=== PATIENT | male | born 1985 | race Caucasian/White ===

== ENCOUNTER 2017-12-13 09:02 | Outpatient (RCR) | payer OTHER, SELFPAY ==
--- NOTE | 2017-12-13 13:41 | HP.PTEVAL_ITS ---
Patient's Visit Information JUDY DIOP is a 32 year old M referred to Physical Therapy by Arminda Mayen MD with a diagnosis of L RTC tendonitis. Date of Evaluation: 12/13/17 Physical Therapist: Lopez Dupont - Visit Plan Frequency: 2x /Week Duration: 4 Weeks Plan: Start with postural education, RTC strengthening phase III. Add in inferior glides with flexion and abduction. May use modalities if needed for pain control. - Subjective Subjective: Pt is here today for his initial evaluation with diagnosis of L RTC tendonitis. Pt. reports symptoms have been going on for a couple of months, and has been getting worse. Pt. has trialed light lifting which has made his symptoms worse. Increases pain: lifting, raising his arm over head, sleeping. Decreases pain: ibuprophen (limits intake), not using it, ice. Pt. reports having occassional N/T down to hand, but reports has not had this feeling in ~1 month. Pt. reports no difficulty at work, but his chief complaint in pain with sleeping. 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 Pt. reports decreased exercises, in general not due to injury, but lifting any upper body increases pain. Pt. is hopeful to reduce symptoms in order to get back to all recreation activities and sleep without pain. - Pain L shoulder Pain Intensity (Out of 10): 1 Pain Intensity Range: 0, 5 Comment: dull pain at most R shoulder Pain Intensity (Out of 10): 5 Pain Intensity Range: 0 Comment: no sharp or shooting - Objective POSTURE: Pt. has forward shoulder positioning bilaterally. Pt. has rounded shoulder, increased thoracic kyphosis and slumped posture. PALPATION: Pt. reports increased pain with palpaion to bilateral UT, bilateral levator scapulea (L worse than R). Pt. has increased pain with palpation to L bicipital groove, and throughout sub acromial space. NEUROLOGICAl: Pt. has normal sensation throughout bilateral UEs to light and sharp touch. Pt. has 2+ biceps and triceps DTR bilaterally. Pt. does not present with any limb tension. ROM: Pt. has full ROM of bilateral UEs including functional ER/IR, but has a painful arm with abduction and flexion, aswell as pain at end range of functional IR. CERVICAL- pt. has full cervical ROM without reproduction of L/R shoulder symptoms. MMT: RUE- shoulder- flexion 5/5, abd 5/5, ext 5/5, ER 5/5, IR 5/5. LUE- flexion 4+/5 (mild increase NW), abd 4+/5 increase NW, ER 4+/5 mild increase NW, IR 5-/5 increase NW, ext 5/5. Pt. 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 Pt. is R hand dominant. - Special Tests C/S Radiculapathy - Left Upper limb tension test: Negative C/S Radiculapathy - Right Upper limb tension test: Negative C/S Radiculapathy - Left Spurlings: Negative C/S Radiculapathy - Right Spurlings: Negative C/S Radiculapathy - Left Cervical distraction: Negative C/S Radiculapathy - Right Cervical distraction: Negative C/S Radiculapathy - Left Relief test: Negative C/S Radiculapathy - Right Relief test: Negative C/S Radiculapathy - Valsalva: Negative L Shoulder External Rotation Lag Test - RC Tear: Negative L Shoulder Lift Off Test - Subscapular Tear: Positive L Shoulder Drop Sign - IS Test: Negative L Shoulder Empty Can - SS: Positive L Shoulder Belly Press - SupScap: Positive L Shoulder Neer - Impingement: Positive L Shoulder Reddy Reymundo - Impingement: Positive L Shoulder Biceps Load Test - Labrum: Positive L Shoulder Speeds Test - Labrum/Biceps: Positive - Goals Goal 1:: Pt. to be I with HEP. Goal Time Frame: 4-6 Weeks Goal 2:: Pt. to have full L shoulder ROM without increase in symptoms. Goal Time Frame: 4-6 Weeks Goal 3:: Pt. to have incerased L shoulder strength by 1/2 grade of all effected musculature. Goal Time Frame: 4-6 Weeks Goal 4:: Pt. to sleep throughout the night without increase in symptoms. Goal Time Frame: 4-6 Weeks Goal 5:: Pt. to resume gym exercises without increase in pain. Goal Time Frame: 4-6 Weeks Goal 6:: Pt. to demonstrate proper posture throughout therapy session, indicating improved postural awareness. Goal Time Frame: 4-6 Weeks - Rehabilitation Potential Physical Therapy Diagnosis: Pt. has signs and symptoms consistent with L shoulder tendonitis with possible impingment occuring with over head activities. He has marked symptoms with impingment testing and with activation or subscapular musculature. Pt. has no signs of a large tear. He did have some positive signs of biceps involvement, but no tears noted. Pt. would benefit from PT to increase toelrance to all active over head activities and decrease pain with sleeping. Rehabilitation Potential: Excellent - Anticipated Interventions Patient/Client Instruction: Educate patient on: Condition, Plan of Care, Risk Factors, Benefits of Fitness Program For the Purpose of:: To assume or resume ADL's, To reduce risk of recurrence, To improve safety, To improve health and function, To foster healthy habits, To improve decision making, To facilitate caregiver knowledge, To improve self management, To prevent re-injury, To improve ability to perform tasks related to life management, To improve tolerance to ADL's Therapeutic Exercise to Include: Strength training, Postural training, Flexibilty training, Passive ROM, Active ROM, Scapular Strength/Stabilization For the Purpose of:: To decrease pain, To increase ROM, To improve nutrient delivery to tissue, To increase oxygenation perfusion, To improve muscle performance and motor function, To improve ability to perform ADL's, To increase tolerance to activity/condition/position, To decrease level of supervision to perform tasks, To improve health of tissue, To decrease soft tissue restriction, To increase flexibility/ROM IF ES: Yes Cryotherapy (ice pack, ice massage): Yes Ultrasound (thermal/non thermal): Yes For the Purpose of:: To decrease pain, To increase ROM, To improve nutrient delivery to tissue, To increase oxygenation perfusion, To improve muscle performance and motor function Thank you for the opportunity to evaluate your patient. For Medicare and Medicare HMO plans, please review the plan of care and approve it. It will need to be FAXED BACK to us at [phone] for Medicare purposes. Please let me know if there are questions or concerns regarding this plan of care. Physician Signature: Date:
--- NOTE | 2018-06-29 16:49 | HP.PT.NRP ---
HP - Discharge Summary (1) - Patient Information JUDY DIOP was seen in my office for initial evaluation on 12/13/17. The following Plan of Care was established for this patient: Initial Frequency: 2x /Week Initial Duration: 4 Weeks - Anticipated Interventions Patient/Client Instruction: Educate patient on: Condition, Plan of Care, Risk Factors, Benefits of Fitness Program For the Purpose of:: To assume or resume ADL's, To reduce risk of recurrence, To improve safety, To improve health and function, To foster healthy habits, To improve decision making, To facilitate caregiver knowledge, To improve self management, To prevent re-injury, To improve ability to perform tasks related to life management, To improve tolerance to ADL's Therapeutic Exercise to Include: Strength training, Postural training, Flexibilty training, Passive ROM, Active ROM, Scapular Strength/Stabilization For the Purpose of:: To decrease pain, To increase ROM, To improve nutrient delivery to tissue, To increase oxygenation perfusion, To improve muscle performance and motor function, To improve ability to perform ADL's, To increase tolerance to activity/condition/position, To decrease level of supervision to perform tasks, To improve health of tissue, To decrease soft tissue restriction, To increase flexibility/ROM IF ES: Yes Cryotherapy (ice pack, ice massage): Yes Ultrasound (thermal/non thermal): Yes For the Purpose of:: To decrease pain, To increase ROM, To improve nutrient delivery to tissue, To increase oxygenation perfusion, To improve muscle performance and motor function This patient was last seen in our office 12/13/17. Pertinent comments regarding their Physical therapy will appear below: Pt. was seen for his initial evaluation for R RTC tendonitis. He did not return for any subsequent visits. He has not been seen in ~7 months and will be DC from PT at this point in time. At this point I will be discontinuing this patient from physical therapy. I would be happy to see this patient again in the future if found appropriate by the physician. Thank you! Lopez Dupont
== END 2017-12-13 19:00 | disposition home or self-care (01) ==
LOC: PT 09:02
PROVIDERS: Family Provider Internal Medicine; PCP Internal Medicine; Visit Provider Internal Medicine
DX: M75.90 Shoulder lesion, unspecified, unspecified shoulder (principal); M25.519 Pain in unspecified shoulder
CPT/HCPCS: 97110; 97161

== ENCOUNTER → 2019-08-28 | Outpatient (CLI) | payer OTHER, SELFPAY ==
[2019-08-28 11:04] VITALS: BMI 33.3
== END | disposition home or self-care (01) ==
LOC: LABSPEC 14:49
PROVIDERS: Family Provider Internal Medicine; PCP Internal Medicine; Referring Provider Physician Assistant Surgical; Visit Provider Physician Assistant Surgical
DX: J06.0 Acute laryngopharyngitis (principal)
CPT/HCPCS: 87070

== ENCOUNTER 2021-02-13 02:30 | Emergency (ER) | payer OTHER, SELFPAY ==
[2019-09-30 08:20] VITALS: BMI 33.3
--- NOTE | 2021-02-13 02:32 | ED.RN ---
CALLED FOR EKG PER RN REQUEST, NO OLD EKGS IN MUSE
[2021-02-13 02:33] VITALS: BP 173/110; PULSE 115; RESP 18; TEMP 36.6; O2SAT 99; BMI 39.4
--- NOTE | 2021-02-13 02:37 | EKG12_ITS ---
Test Reason : CP Blood Pressure : / mmHG Vent. Rate : 099 BPM Atrial Rate : 099 BPM P-R Int : 160 ms QRS Dur : 086 ms QT Int : 346 ms P-R-T Axes : 057 052 061 degrees QTc Int : 444 ms Normal sinus rhythm with sinus arrhythmia Nonspecific T wave abnormality Abnormal ECG Confirmed by CONY MONTESINOS, MARY ([id number]), makeup editor ABRAHAM URRUTIA ([id number]) on 02/13/2021 12:51:20 PM Referred By: SANIA Confirmed By:MARY DONNELLY MD
--- NOTE | 2021-02-13 02:37 | RAD_ITS ---
STUDY: X-RAY CHEST REASON FOR EXAM: Male, 35 years old. Chest pain TECHNIQUE: Single AP portable view x2 of the chest. COMPARISON: None. FINDINGS: The lungs are clear and expanded. There is no demonstrated pleural abnormality. Normal size heart. Normal mediastinum and shavonne. Normal visualized pulmonary arteries. Normal visualized aortic arch and descending thoracic aorta. Normal visualized thoracic spine. Normal visualized ribs, clavicles, and shoulders. There is no demonstrated abnormality of the visualized soft tissue structures of the upper abdomen. RAD/Chest 1 View (Portable) IMPRESSION: Normal x-ray examination of the chest. Electronically Signed: Symone Rashid MD at 3:12 EDT Tel , Service support ,
--- NOTE | 2021-02-13 02:37 | ED.VISSUMM ---
- ER Visit Summary Date of Service: 02/13/21 Chief Complaint: Chest pain History of Present Illness: The patient is a 35 M who presents with chest pain. It woke him up from sleep about 30 minutes ago. He describes a pretty strong ache in the lower portion of his sternal area. It does not radiate. He denies shortness of breath, cough or fever. Nothing seems to make the pain better or worse. He has no history of this in the past. He states he likely has undiagnosed hypertension but is on no medications for it. He denies any other cardiovascular risk factors. He has no DVT or PE risk factors or history. He takes allergy medicine but no other medications. He is a non-smoker. Physical Examination: Vital signs reviewed. HEENT exam unremarkable. Heart is regular rate and rhythm without murmurs. Lungs are clear to auscultation. Abdomen is soft and nontender. Extremities reveal no edema. Peripheral pulses are equal. Skin exam normal. Neurologic exam normal. Test Results: EKG is normal sinus rhythm with rate of 99. There are no ST changes. Labs are normal except a glucose of 117. Chest x-ray normal. Second troponin is also normal Emergency Department Course and Treatment: Patient was given aspirin. He continued to have pain so he was given morphine. The patient had 2 troponins which were normal. His heart score is 1. He is low risk I feel he can follow-up as an outpatient. He will continue NSAIDs at home. Treatment Plan: [] Disposition: Discharge Impression: Chest pain This note was generated with [employer] dictation software. It may contain incorrect words, spelling, and punctuation that were not noted in review of the chart prior to signing ED Disposition - Plan for ED Patient: Disposition: Home or Assisted Living Instructions: ED Chest Pain, Uncertain Cause Referrals: Arminda Mayen MD [Primary Care Provider] -
[2021-02-13] MEDS: Aspirin 81 MG TAB.CHEW 324 MG PO (02:45)
[2021-02-13 02:52] LABS: Absolute Neutrophil Count 4.1 X10^3/uL (2.0-7.7); Basophil# 0.06 X10^3/uL; Basophil% 0.8 % (0-1); Eosinophil# 0.17 X10^3/uL; Eosinophils% 2.3 % (0-5); Hematocrit 43.1 % (40-54); Hemoglobin 15.2 g/dL (13.0-16.5); Lymphocyte % 34.8 % (19-41); Mean Corp Hgb Conc 35.3 g/dL (32-36); Mean Corpuscular Hgb 31.6 pg (27.0-32.0); Mean Corpuscular Volume 89.6 fL (80-94); Mean Platelet Vol. 10.2 fl (6.2-12.0); Monocyte# 0.58 X10^3/uL; Monocyte% 7.8 % (0-10); NRBC Flagged by Analyzer 0 % (0-5); Neutrophil # 4.05 X10^3/uL (2.7-7.7); Platelet Count 323 K/mm3 (150-450); RBC Distribution Width SD 39.2 fl (35.1-43.9); Red Blood Count 4.81 M/mm3 (4.6-6.2); White Blood Count 7.5 K/mm3 (4.4-11.0)
[2021-02-13 02:55] VITALS: BP 160/101; PULSE 90; RESP 17; O2SAT 97
[2021-02-13 03:10] LABS: Anion Gap 5 (5-15); BUN 15 mg/dL (7-18); BUN/Creat Ratio 13.8 RATIO (10-20); Calcium,Total 9.3 mg/dL (8.5-10.1); Chloride 106 mmol/L (98-107); Creatinine, Serum 1.09 mg/dL (0.70-1.30); EST Glomerular Filtration Rate 82 mL/min (>60); Est Glom Filt Rate - Afr Amer 99 mL/min (>60); Estimated Creatinine Clearance 116.13 ml/min; Glucose 117 mg/dL (74-106); Potassium 3.8 mmol/L (3.5-5.1); Sodium Level 139 mmol/L (136-145)
[2021-02-13 03:31] VITALS: BP 161/99; PULSE 78; RESP 22; O2SAT 96
[2021-02-13] MEDS: Morphine 4 MG/ML Syringe IV (03:41)
[2021-02-13 04:13] VITALS: BP 160/100; PULSE 84; RESP 15; O2SAT 96
[2021-02-13 04:21] VITALS: BP 145/94; PULSE 76; RESP 12; O2SAT 96
[2021-02-13 05:16] VITALS: BP 144/95; PULSE 71; RESP 16; O2SAT 96
== END 2021-02-13 05:17 | disposition home or self-care (01) ==
PROVIDERS: Emergency Provider Emergency Medicine; PCP Internal Medicine
DX: R07.9 Chest pain, unspecified (principal)
CPT/HCPCS: 36415; 71045; 80048; 84484; 85025; 93005; 96374; 99284; A4216

== ENCOUNTER → 2021-02-18 13:02 | Outpatient (CLI) | payer OTHER, SELFPAY ==
[2021-02-18 11:46] VITALS: BMI 38.2
[2021-02-18 16:23] LABS: Probe Check PASS; Specimen Processing Control PASS
== END ==
PROVIDERS: PCP Internal Medicine; Referring Provider Internal Medicine; Visit Provider Internal Medicine
DX: K80.20 Calculus of gallbladder without cholecystitis without obstruction (principal)
CPT/HCPCS: 87635; U0002

== ENCOUNTER 2021-03-20 10:19 | Outpatient (RCR) | payer OTHER, SELFPAY ==
[2021-02-18 11:46] VITALS: BMI 38.2
== END 2021-05-06 23:59 ==
LOC: IMMUN 10:19
PROVIDERS: PCP Internal Medicine; Referring Provider Family Medicine; Visit Provider Family Medicine
DX: Z23 Encounter for immunization (principal)
CPT/HCPCS: 0001A; 0002A; 91300

== ENCOUNTER → 2021-10-28 21:51 | Outpatient (CLI) | payer OTHER, SELFPAY | PROVIDERS: PCP Internal Medicine; Referring Provider Internal Medicine; Visit Provider Internal Medicine | DX: G47.10 Hypersomnia, unspecified (principal) | CPT/HCPCS: 95810 ==

== ENCOUNTER → 2021-11-27 20:00 | Outpatient (CLI) | payer OTHER, SELFPAY | PROVIDERS: PCP Internal Medicine; Visit Provider Internal Medicine | DX: G47.10 Hypersomnia, unspecified (principal) | CPT/HCPCS: 95811 ==

== ENCOUNTER 2022-01-12 09:00 | Outpatient (CLI) | payer OTHER, SELFPAY | END 2022-01-12 23:59 | disposition home or self-care (01) | LOC: SL 09:32 | PROVIDERS: PCP Internal Medicine; Visit Provider Internal Medicine | DX: Z46.89 Encounter for fitting and adjustment of other specified devices (principal) ==

== ENCOUNTER 2022-11-23 19:45 | Observation (INO) | payer OTHER, SELFPAY ==
[2022-11-23 19:45] VITALS: BP 158/97; PULSE 115; RESP 15; TEMP 37; O2SAT 96; BMI 38.3
[2022-11-23 21:01] VITALS: BP 139/77; PULSE 100; RESP 16; TEMP 36.6; O2SAT 98
[2022-11-23 21:45] VITALS: PULSE 99; RESP 16; O2SAT 99
--- NOTE | 2022-11-23 21:45 | ED.VIS.LOWEX ---
HPI History of Present Illness HPI Narrative: Right leg red, swollen and tender. Denies any fall injury or trauma. Chills without fever. Started last night. No prior history of cellulitis. Chief Complaint: Lower Extremity Injury Informant: patient Occured/Mechanism Mechanism/Context: No injury and No blunt trauma Onset/Context/Timing Onset: Today and Yesterday Context: Gradual Onset Timing: Continuous Current Severity: Mild Maximum Severity: Mild Associated Symptoms Associated Symptoms: Negative for Parasthesia, Weakness or Loss of Funtion Narrative Narrative: 37-year-old male past medical history of hypertension. States that last evening his right lower leg and now his right upper leg is red, swollen and tender. Chills without fever. He is never had this before. He has never had cellulitis. He is not diabetic. He has never had a DVT or PE. No recent travel, surgery or hospitalization. He has had surgery on his right foot but that was a year ago for removal of a melanoma. Prior similar symptoms: No Recent Illness/Hospitalization: No PFSH PFSH Medical History Asthma Congenital absence of left kidney Elevated random blood glucose level Fatty infiltration of liver Gallstones Hypersomnolence Hypertension (Unknown) Localized swelling of right foot Obesity (BMI 30-39.9) DORENE (obstructive sleep apnea) Rash Shortness of breath Shoulder pain Sleep apnea Home Medications loratadine 10 mg capsule 10 mg PO DAILY 02/13/21 [History Last Taken Unknown] amlodipine 10 mg tablet 10 mg PO DAILY #90 tabs 11/05/21 [Rx Last Taken Unknown] Allergy/AdvReac Type Severity Reaction Status Date / Time shellfish derived Allergy Severe Unknown Verified 11/23/22 19:52 Family History Mother Asthma Cancer basal cell Surgical History History of cholecystectomy History of hernia repair History of wisdom tooth extraction Social History (Updated 11/23/22 @ 22:[address] Suzi Castaneda MD) household members: spouse Smoking Status: Never smoker alcohol intake: never substance use type: does not use what type of physical activity do you participate in: bicycling frequency: 1-2 times per week ROS ROS ED ROS Narrative Chills. Right leg red and swollen. Review of Systems ROS Unobtainable: Denies due to encephalopathy Constitutional Constitutional ED: Reports chills; Denies fever(s) Eyes Eyes: Denies blurry vision ENT ENT ED: Denies ear pain Cardiovascular Cardiovascular: Denies chest pain Respiratory/Chest Respiratory/Chest: Denies cough or dyspnea Gastrointestinal Gastrointestinal: Denies abdominal pain Genitourinary Genitourinary ED: Denies dysuria or hematuria Musculoskeletal Musculoskeletal: Denies arthralgias Integumentary Denies abscess or Abrasions Neurologic Neurologic: Denies headache(s) Psychiatric Psychiatric: Denies anxiety Endocrine Endocrinology: Denies polydipsia Hematologic/Lymphatic Hematologic/Lymphatic: Denies easy bleeding Allergic/Immunologic Allergic/Immunologic ED: Denies mouth swelling or tongue swelling EXAM Physical Exam Narrative Exam Narrative: There is [age]-year-old male no acute distress. Vital signs stable afebrile. H EENT exam unremarkable. Neck nontender. Lungs clear to auscultation. Heart regular rhythm rate about 100 no murmur. Abdomen soft nontender normal bowel sounds no peritoneal signs. Moving all 4 extremities. His right leg from the ankle all the way up to his right inner thigh is red, tender and warm to touch consistent with cellulitis. He has mild tender inguinal lymphadenopathy. There is no abscess. No subcu air or crepitance. Right foot is neurovascularly intact with full range of motion. DP pulse. Touch sensation. No joint swelling or significant joint pain. Exam is consistent with right lower extremity cellulitis. Neurologically is awake and alert. Const Vital Signs: 11/23/22 19:45 11/23/22 21:01 11/23/22 21:45 Temperature 98.6 F 97.8 F Temperature Source Temporal Temporal Pulse Rate 115 H 100 99 Respiratory Rate 15 16 16 Blood Pressure 158/97 H 139/77 H Blood Pressure Mean 117 97 Pulse Ox 96 98 99 Oxygen Delivery Method Room Air Room Air Room Air Positive well nourished, well developed and obese; Negative for cachectic or contractures General Appearance ED: well developed and NAD; Negative for cachectic or contractures Nutritional Appearance: obese; Negative for cachectic HEENT Reports moist mucous membranes normocephalic and atraumatic; Negative for trauma or tenderness Eyes PERRL General Eye ED: Negative for other Neck full ROM and supple Thyroid: Negative for tender Lymph Lymphatic: Negative for other Chest Wall inspection of chest normal and palpation of chest normal Chest: Negative for other Resp normal respiratory effort, no retractions and clear to auscultation bilaterally Effort and Inspection: Negative for pain with movement Auscultation: Negative for rales, rhonchi or wheezes Cardio regular rhythm, S1 normal heart sound, S2 normal heart sound and no murmurs; Negative for regular rate Rate: tachycardic GI non-tender, non-distended and no masses Inspection: Negative for abdominal distention Auscultation: normoactive bowel sounds Palpation: soft; Negative for tender or guarding Back/Spine no CVA tenderness General Back: Negative for CVA tenderness Cervical Spine: Negative for cervical spine tenderness Thoracic Spine / Upper Back: Negative for thoracic spinal tenderness Lumbar Spine / Lower Back: Negative for lumbar spinal tenderness Extremity normal to inspection and full ROM Extremity Narrative: Except right leg red, swollen and tender consistent with cellulitis from the right ankle all the way up to the right groin. Right foot is neurovascular intact with normal dorsi and plantar flexion. Normal DP pulse and sensation. General Extremety ED: Yes edema General Extremity: edema Neuro oriented x3 and moves all extremities Sensorium / Orientation: alert, oriented to person, oriented to place and oriented to time; Negative for orientation impaired, confused or lethargic Motor Exam: strength 5/5 throughout Psych mental status grossly normal Speech: No other Mood & Affect: Negative for anxious Skin no wounds Skin Narrative: Cellulitis right lower leg from the ankle to the groin. Lesions: no lesions Rashes: No no rashes Trauma: Negative for abrasion or laceration MDM MDM MDM Narrative Medical decision making narrative: 37-year-old male with right lower extremity cellulitis. This has been going on about 24 hours and is gone from his ankle to his groin. He will be started on IV Unasyn. Blood cultures and labs. I feel he needs to be admitted for IV antibiotics. Repeat exam unchanged at 10:23 PM. IV antibiotics have been started. I have already spoken with the hospitalist she will be down to evaluate the patient for admission. Patient is aware of the plan and comfortable with that. Lab Data Attestation: I reviewed the patient's lab results. Lab results narrative: CBC shows a white count 9.3. H&H 11.1 and 34.2. Platelets 246. Electrolytes are pending. This is a new anemia from his prior labs discussed with the hospitalist who will further evaluate that. Discussed with patient has no history of anemia. He denies any GI bleed symptoms. Chemistries unremarkable gap of 8 normal BUN and creatinine. Glucose of 108. Labs: Laboratory Results - last 24 hr 11/23/22 11/23/22 22:03 22:03 WBC 9.3 RBC 3.60 L Hgb 11.1 L Hct 34.2 L MCV 95.0 H MCH 30.8 MCHC 32.5 RDW Std Deviation 42.8 RDW Coeff of Geoff 12.4 Plt Count 246 MPV 10.3 Immature Gran % (Auto) 0.400 Neut % (Auto) 77.5 H Lymph % (Auto) 14.2 L Stewart % (Auto) 7.6 Eos % (Auto) 0.1 Baso % (Auto) 0.2 Absolute Neuts (auto) 7.2 Absolute Lymphs (auto) 1.31 Nucleated RBC % 0 Sodium 136 Potassium 3.9 Chloride 107 Carbon Dioxide 21.0 Anion Gap 8 BUN 10 Creatinine 1.13 Estim Creat Clear Calc 109.89 Est GFR (MDRD) Af Amer 94 Est GFR (MDRD) Non-Af 78 BUN/Creatinine Ratio 8.8 L Glucose 108 H Calcium 9.2 Discharge Plan Dx/Rx/DC Orders Clinical Impression: Cellulitis of leg, right, Anemia Disposition Disposition: Acute Care Hospital [facility] Discharge Date/Time: 11/23/22 22:44
--- NOTE | 2022-11-23 22:14 | PCM.HP.STD ---
HPI - General General Date of Admission: 11/23/22 Date of Service: 11/23/22 Chief Complaint: RLE redness, pain, edema. 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 He does report that approximately 2 weeks prior to this current onset he did have increased swelling in his foot which is above his baseline. He notes since he had surgery initially in November of this year on the right foot following melanoma removal and follow-up grafting surgery in January he has had chronic foot swelling and reportedly was told that this would take nearly a year to resolve but this swelling which initiated 2 weeks prior to current presentation was above this baseline. Work-up in the ED included T97.8, heart rate 100, BP 139/77, respiratory rate 16, 98% on room air, CBC with WC 9.3, hemoglobin 11.1, MCV 95, platelet 246 without marked shift. In the ED patient initiated on Unasyn therapy. Upon requested evaluation patient has BMP as well as blood culture x2 that are all pending. [facility] Medical History Asthma Congenital absence of left kidney Elevated random blood glucose level Fatty infiltration of liver Gallstones Hypersomnolence Hypertension (Unknown) Localized swelling of right foot Obesity (BMI 30-39.9) DORENE (obstructive sleep apnea) Rash Shortness of breath Shoulder pain Sleep apnea Home Medications loratadine 10 mg capsule 10 mg PO DAILY 02/13/21 [History Last Taken Unknown] amlodipine 10 mg tablet 10 mg PO DAILY #90 tabs 11/05/21 [Rx Last Taken Unknown] Allergy/AdvReac Type Severity Reaction Status Date / Time shellfish derived Allergy Severe Unknown Verified 11/23/22 19:52 Family History Mother Asthma Cancer basal cell other (No marked paternal family history including HD, DM, CA.) Surgical History History of cholecystectomy History of hernia repair History of wisdom tooth extraction Social History (Updated 11/23/22 @ 22:[address] Suzi Castaneda MD) household members: spouse Smoking Status: Never smoker alcohol intake: never substance use type: does not use what type of physical activity do you participate in: bicycling frequency: 1-2 times per week ROS ROS Narrative Admission Review of Systems: CONSTITUTIONAL: No weight loss, fever, + chills, weakness or fatigue. HEENT: Eyes: No visual loss, blurred vision, double vision or yellow sclerae. Ears, Nose, Throat: No hearing loss, sneezing, congestion, runny nose or sore throat. SKIN: + RLE redness, edema, pain. CARDIOVASCULAR: + Mild lightheadedness. No chest pain, chest pressure or chest discomfort, palpitations, edema, orthopnea, syncopal events. RESPIRATORY: No shortness of breath, cough or sputum, wheezing, hemoptysis. GASTROINTESTINAL: No anorexia, nausea, vomiting or diarrhea, abdominal pain, melena, BRBPR. GENITOURINARY: No dysuria, frequency, urgency or retention. NEUROLOGICAL: + Mild lightheadedness. No headache, dizziness, syncope, paralysis, ataxia, numbness or tingling in the extremities, focal weakness, change in bowel or bladder control, seizure. MUSCULOSKELETAL: + muscle, back pain, joint pain or stiffness. HEMATOLOGIC: + anemia, bleeding or bruising. LYMPHATICS: No enlarged nodes. No history of splenectomy. PSYCHIATRIC: No history of depression or anxiety. ENDOCRINOLOGIC: No reports of sweating, cold or heat intolerance. No polyuria or polydipsia. ALLERGIES: + history of asthma, rhinitis. Vital Signs Vital Signs Vital Signs: 11/23/22 19:45 11/23/22 21:01 Temperature 98.6 F 97.8 F Temperature Source Temporal Temporal Pulse Rate 115 H 100 Respiratory Rate 15 16 Blood Pressure 158/97 H 139/77 H Blood Pressure Mean 117 97 Pulse Ox 96 98 Oxygen Delivery Method Room Air Room Air Weight Weight: 315 lb Body Mass Index (BMI) 38.3 Physical Exam Narrative Physical Examination: General: Awake, alert, oriented x 3 and cooperative, seated upright in the ED bed, fatigued appearing otherwise no acute distress. Skin: Normal color, normal turgor, no icterus, no cyanosis except for noted well-healed skin grafting to the right plantar medial foot as well as erythema which is not circumferential but primarily up the medial leg from the ankle to the proximal thigh, warm to touch, tender to palpation, notable discomfort even with squeezing the calf, mild swelling especially to the foot including the toes. HEENT: AT/NC, EOMI, PERRLA, mildly dry MM, no carotid bruits or JVD noted. Lungs: CTA bilaterally, moderate effort, mild decrease BL bases, no rales, ronchi or wheezing. Heart: Mildly tachycardic with regular rhythm; no gallop, rub audible. Abdomen: Soft, obese, NTTP, ND, normal BS, no HSM. Extremities: No cyanosis, no clubbing, see skin. Neurological: Patient awake, alert, oriented as noted, cognitive function intact; pupils equally reactive to light and accommodation, cranial nerves II-XII grossly normal, moving all 4 extremities, no focal deficits, strength mildly to moderately Decreased secondary to acute presentation complaints. Psychiatric: Affect appears fatigued, no acute evidence of depressive or anxiety feelings. 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 #1. Extensive Right Lower Extremity Cellulitis extending from ankle to upper proximal thigh: Will admit to [facility], maintain on IV Unasyn which was initiated in the ED, plan repeat CBC in AM, continue affected extremity elevation above heart when seated and in bed, monitor erythema outline with VS checks, will obtain duplex ultrasound to be cautious, PRN pain/antiemetic regimen. #2. New appearing macrocytic anemia: Admission CBC with hemoglobin 11.1, MCV 95, just above the range for normocytic, will obtain guaiac, iron panel, ferritin, vitamin B12 and folic acid to be cautious. Patient is color blind to read and denies knowledge of any bright red blood in his stools but is able to see black and denies any black appearing stools. #3. Melanocytic nevus: Patient following w/ Dr. Jackson, nevus on the sole of R foot since , biopsy done on 10/17/2021 which showed Melanoma with PET/CT on 11/18/2021 was negative. 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 #4. Chronic asthma with allergic rhinitis: Not on any chronic inhalers, PRN albuterol, continue patient home loratadine. #5. Obesity: Weight loss and lifestyle changes encouraged. #6. Hypertension: Continue home regimen amlodipine, PRN hydralazine. #7. DORENE: CPAP nightly. #8. DVT prophylaxis: SCDs, will maintain on therapeutic Lovenox while awaiting ultrasound as noted, de-escalate once able if negative especially given new anemia. Charges/Coding Visit Charges OBSV E&M: 57579 Initial observation care L3
[2022-11-23 22:20] LABS: Absolute Lymphocyte Count 1.31 X10^3/uL (0.83-4.51); Absolute Neutrophil Count 7.2 X10^3/uL (2.0-7.7); Basophil# 0.02 X10^3/uL; Basophil% 0.2 % (0-1); Eosinophil# 0.01 X10^3/uL; Eosinophils% 0.1 % (0-5); Hematocrit 34.2 % (40-54); Hemoglobin 11.1 g/dL (13.0-16.5); Lymphocyte # 1.31 X10^3/ul (0.83-4.51); Lymphocyte % 14.2 % (19-41); Mean Corp Hgb Conc 32.5 g/dL (32-36); Mean Corpuscular Hgb 30.8 pg (27.0-32.0); Mean Platelet Vol. 10.3 fl (6.2-12.0); Monocyte% 7.6 % (0-10); NRBC Flagged by Analyzer 0 % (0-5); Neutrophil # 7.17 X10^3/uL (2.7-7.7); Neutrophil % 77.5 % (47-70); Platelet Count 246 K/mm3 (150-450); RBC Distribution Width CV 12.4 % (11.6-14.6); RBC Distribution Width SD 42.8 fl (35.1-43.9); White Blood Count 9.3 K/mm3 (4.4-11.0)
[2022-11-23 22:24] VITALS: BP 143/79; PULSE 100; RESP 17; TEMP 36.4; O2SAT 98
[2022-11-23 22:48] LABS: Anion Gap 8 (5-15); BUN 10 mg/dL (7-18); BUN/Creat Ratio 8.8 RATIO (10-20); Calcium,Total 9.2 mg/dL (8.5-10.1); Chloride 107 mmol/L (98-107); Creatinine, Serum 1.13 mg/dL (0.70-1.30); EST Glomerular Filtration Rate 78 mL/min (>60); Est Glom Filt Rate - Afr Amer 94 mL/min (>60); Estimated Creatinine Clearance 109.89 ml/min; Glucose 108 mg/dL (74-106); Potassium 3.9 mmol/L (3.5-5.1); Sodium Level 136 mmol/L (136-145)
[2022-11-23 22:54] VITALS: BMI 38.8
[2022-11-23 23:10] VITALS: BP 159/85; PULSE 102; RESP 17; TEMP 36.8; O2SAT 99
[2022-11-23] MEDS: 0.9% Normal Saline 1,000 ML 125 ML IV (23:16)
[2022-11-23] MEDS: Enoxaparin 150 MG/ML Syringe 140 MG SC (23:16)
[2022-11-24 05:20] VITALS: BP 151/90; PULSE 97; RESP 16; TEMP 37.3; O2SAT 95
--- NOTE | 2022-11-24 05:55 | VDLE_ITS ---
Reason For Study: LEG PAIN RIGHT LEFT GSV is normal. CFV is compressible, spontaneous, phasic, CFV is compressible, spontaneous, phasic, competent, and demonstrates normal competent and demonstrates normal augmentation. augmentation. FV is compressible, spontaneous, phasic, competent and demonstrates normal augmentation. POP V is compressible, spontaneous, phasic, competent and demonstrates normal augmentation. T/P Trunk is compressible. PTV is compressible. RT PerV is compressible. Enlarged lymph nodes noted in Rt Groin measuring approximately 1.14cm x 0.66cm and 0.72cm x 0.99cm. Procedure This is a venous duplex using B-mode, color flow and spectral Doppler. Exam performed portable in ICU/CCU. The exam was diagnostic. A preliminary report was called and/or faxed to ICU Nurse responsible for patient. VL/Venous Duplex US, Unilateral Interpretation Summary There is no evidence of right lower extremity deep vein thrombosis. Right great saphenous vein appears patent and compressible segmentally. Right groin 1.14 x 0.66 cm and 0.7 2 x 0.99 cm lymph nodes Normal flow left common femoral vein Ordering Physician: Suzi Castaneda Referring Physician: Arminda Mayen Performed By: Dashawn Haywood RVT
[2022-11-24 06:00] VITALS: BP 151/90; PULSE 97; RESP 16; TEMP 37.3; O2SAT 95
[2022-11-24] MEDS: 0.9% Saline Lock 10 ML Syringe IV (06:17)
[2022-11-24] MEDS: 0.9% Normal Saline 1,000 ML 125 ML IV (06:17)
[2022-11-24 06:18] LABS: Absolute Lymphocyte Count 1.41 X10^3/uL (0.83-4.51); Absolute Neutrophil Count 7.3 X10^3/uL (2.0-7.7); Basophil# 0.04 X10^3/uL; Basophil% 0.4 % (0-1); Eosinophil# 0.01 X10^3/uL; Eosinophils% 0.1 % (0-5); Hematocrit 41.9 % (40-54); Hemoglobin 13.8 g/dL (13.0-16.5); Lymphocyte # 1.41 X10^3/ul (0.83-4.51); Lymphocyte % 14.5 % (19-41); Mean Corp Hgb Conc 32.9 g/dL (32-36); Mean Corpuscular Hgb 30.5 pg (27.0-32.0); Mean Corpuscular Volume 92.5 fL (80-94); Mean Platelet Vol. 10.2 fl (6.2-12.0); Monocyte# 0.87 X10^3/uL; NRBC Flagged by Analyzer 0 % (0-5); Neutrophil # 7.34 X10^3/uL (2.7-7.7); Neutrophil % 75.7 % (47-70); Platelet Count 323 K/mm3 (150-450); RBC Distribution Width CV 12.6 % (11.6-14.6); RBC Distribution Width SD 42.7 fl (35.1-43.9); Red Blood Count 4.53 M/mm3 (4.6-6.2); White Blood Count 9.7 K/mm3 (4.4-11.0)
[2022-11-24 06:47] LABS: AST(SGOT) 15 U/L (15-37); Alanine Aminotransfer ALT/SGPT 43 U/L (16-61); Albumin, Serum 3.5 g/dL (3.2-5.0); Alkaline Phosphatase 66 U/L (45-117); Anion Gap 7 (5-15); BUN 9 mg/dL (7-18); Calcium,Total 8.4 mg/dL (8.5-10.1); Chloride 107 mmol/L (98-107); EST Glomerular Filtration Rate 90 mL/min (>60); Est Glom Filt Rate - Afr Amer 109 mL/min (>60); Estimated Creatinine Clearance 124.17 ml/min; Ferritin 222 ng/mL (26-388); Globulin 3.6 g/dL (2.2-4.2); Glucose 120 mg/dL (74-106); Iron 26 ug/dL (65-175); Iron Binding Capacity,Total 289 ug/dL (250-450); Potassium 3.6 mmol/L (3.5-5.1); Protein, Total 7.1 g/dL (6.4-8.2); Sodium Level 140 mmol/L (136-145)
[2022-11-24 08:00] VITALS: BP 151/90; PULSE 97; RESP 16; TEMP 37.3; O2SAT 98
[2022-11-24 08:07] VITALS: O2SAT 97
[2022-11-24 08:29] LABS: Vitamin B12 285 pg/mL (211-911)
[2022-11-24] MEDS: amLODIPine 10 MG Tablet PO (09:50)
[2022-11-24] MEDS: Enoxaparin 150 MG/ML Syringe 140 MG SC (09:50)
[2022-11-24] MEDS: Loratadine 10 MG Tablet PO (09:50)
[2022-11-24] MEDS: FLU VACC QS2022-23(6MOS UP)/PF 60 MCG/0.5 ML SYRINGE IM (09:54)
--- NOTE | 2022-11-24 11:37 | DCINST_ITS ---
Discharge Instructions Diet Discharge Diet: No restrictions Activity Discharge Activity: Return to Normal Activity Weight Bearing Status: Full weight bearing Follow Up Care Test Results: Test results from this visit will be discussed in further detail at your follow- up appointment, if applicable. Discharge Plan Admission Admit Date/Time: 11/23/22 22:15 Primary Reason for Your Visit: cellulitis right leg Attending Provider: aGtito Chase Primary Care Provider: Arminda Mayen Consulting Providers: Suzi Castaneda Instructions Additional Instructions / Restrictions: Contact your family physician if your right leg has increased redness or swelling You will need follow-up concerning your iron deficiency anemia Discharge Orders/Prescriptions Prescriptions: New doxycycline monohydrate 100 mg capsule 100 mg PO BID Qty: 15 0RF Rx Instructions: start on 11/24/22 in the evening ferrous sulfate 325 mg (65 mg iron) tablet 325 mg PO BID Qty: 60 0RF Continued amlodipine 10 mg tablet 10 mg PO DAILY Qty: 90 3RF loratadine 10 MG capsule 10 mg PO DAILY Referrals / Follow Up: Arminda Mayen MD [Primary Care Provider] - See Referral Note (next week) Disposition Disposition (needs filled in before D/C Order can be placed): Home, Self Care
[2022-11-24 12:00] VITALS: BP 146/74; PULSE 99; RESP 16; TEMP 36.6; O2SAT 98
--- NOTE | 2022-11-24 12:03 | DS.PCM_ITS ---
Providers Date of Admission: 11/23/22 Date of Discharge: 11/24/22 Primary Care Physician: Dr. Arminda Mayen MD Reason For Visit: RLE CELLULITIS Diagnosis Discharge Diagnosis (1) Cellulitis of leg, right: Status: Acute Code(s): L03.115 - Cellulitis of right lower limb Plan 1. Right leg cellulitis #2 iron deficiency anemia-etiology unclear #3 obstructive sleep apnea #4 essential hypertension Medications at Discharge Home Medications loratadine 10 mg capsule 10 mg PO DAILY 02/13/21 amlodipine 10 mg tablet 10 mg PO DAILY #90 tabs 11/05/21 doxycycline monohydrate 100 mg capsule 100 mg PO BID #15 caps 11/24/22 ferrous sulfate 325 mg (65 mg iron) tablet 325 mg PO BID #60 tabs 11/24/22 Hospital Course Operations None Procedures None Summary of Care Provided Minutes Spent on Discharge: 30 Hospital Course: This 37-year-old white male was seen in the emergency room at [facility] with complaints of right lower leg and right upper leg swelling, r edness, and tenderness. Patient also complained of some chills without actual fever. Examination in the emergency room revealed streaking up the right lower leg into the right inner thigh area, the area was warm to the touch and was mildly tender. Patient CBC was unremarkable except for hemoglobin of 11.1 patient was placed in the observation status in ICU 204 for cellulitis, he was placed on IV antibiotics, iron studies were performed and showed the patient to have iron deficiency anemia. Repeat hemoglobin was normal the next day. On 11/24/2022, patient was seen and examined: On examination he appeared in good health and spirits. Vital signs as documented. Skin warm and dry, there is a red rash extending from the patient's right lower leg on the inner aspect to the proximal right inner thigh area, this area was mildly warm and was not overtly tender at time of my examination. Neck without JVD, neck was supple, trachea midline, thyroid was normal. Lungs clear bilaterally, normal air movement was noted. Heart exam notable for regular rhythm, normal sounds and absence of murmurs, rubs or gallops. Abdomen unremarkable and without evidence of organomegaly, masses, or abdominal aortic enlargement. Bowel sounds are present, abdomen is not distended. Extremities nonedematous, no cyanosis was noted, no clubbing was noted. Neuro: Cranial nerves II through XII are grossly intact, no focal motor deficits were noted, sensation to light touch and pinprick intact, motor exam 5/5 throughout. Psych: Patient is alert and oriented x3, he does not appear anxious or depressed, he does not appear agitated. This examiner felt that the patient could be discharged home on oral antibiotics with follow-up with his PCP. He was also instructed to follow-up regarding his iron deficiency anemia, patient was placed on ferrous sulfate at the time of discharge from the hospital. I also talked with his who was in the room at the time of my examination concerning his medical conditions. Weight / BMI Weight Weight: 142.4 kg Body Mass Index (BMI) 38.8 ABG / Lab / Microbiology Data Result Diagrams: 11/24/22 06:10 11/24/22 06:10 Laboratory: Laboratory Results - last 24 hr 11/23/22 22:03: WBC 9.3, RBC 3.60 L, Hgb 11.1 L, Hct 34.2 L, MCV 95.0 H, MCH 30.8, MCHC 32.5, RDW Std Deviation 42.8, RDW Coeff of Geoff 12.4, Plt Count 246, MPV 10.3, Immature Gran % (Auto) 0.400, Neut % (Auto) 77.5 H, Lymph % (Auto) 14.2 L, Alexander % (Auto) 7.6, Eos % (Auto) 0.1, Baso % (Auto) 0.2, Absolute Neuts (auto) 7.2, Absolute Lymphs (auto) 1.31, Nucleated RBC % 0 11/23/22 22:03: Sodium 136, Potassium 3.9, Chloride 107, Carbon Dioxide 21.0, Anion Gap 8, BUN 10, Creatinine 1.13, Estim Creat Clear Calc 109.89, Est GFR (MDRD) Af Amer 94, Est GFR (MDRD) Non-Af 78, BUN/Creatinine Ratio 8.8 L, Glucose 108 H, Calcium 9.2 11/24/22 06:10: WBC 9.7, RBC 4.53 L, Hgb 13.8, Hct 41.9, MCV 92.5, MCH 30.5, MCHC 32.9, RDW Std Deviation 42.7, RDW Coeff of Geoff 12.6, Plt Count 323, MPV 10.2, Immature Gran % (Auto) 0.300, Neut % (Auto) 75.7 H, Lymph % (Auto) 14.5 L, Alexander % (Auto) 9.0, Eos % (Auto) 0.1, Baso % (Auto) 0.4, Absolute Neuts (auto) 7.3, Absolute Lymphs (auto) 1.41, Nucleated RBC % 0 11/24/22 06:10: Sodium 140, Potassium 3.6, Chloride 107, Carbon Dioxide 26.0, Anion Gap 7, BUN 9, Creatinine 1.00, Estim Creat Clear Calc 124.17, Est GFR (MDRD) Af Amer 109, Est GFR (MDRD) Non-Af 90, BUN/Creatinine Ratio 9.0 L, Glucose 120 H, Calcium 8.4 L, Iron 26 L, TIBC 289, Iron Saturation 9.0 L, Ferritin 222, Total Bilirubin 1.10 H, AST 15, ALT 43, Alkaline Phosphatase 66, Total Protein 7.1, Albumin 3.5, Globulin 3.6, Albumin/Globulin Ratio 1.0, Folate 17.70 11/24/22 06:10: Vitamin B12 285 Microbiology: Microbiology 11/24/22 09:45 Stool Stool Occult Blood (RAJ) - Final Radiography Diagnostic Testing: Radiology Impression Venous Doppler Study 11/24/22 05:55 Interpretation Summary There is no evidence of right lower extremity deep vein thrombosis. Right great saphenous vein appears patent and compressible segmentally. Right groin 1.14 x 0.66 cm and 0.72 x 0.99 cm lymph nodes Normal flow left common femoral vein Ordering Physician: Suzi Castaneda Referring Physician: Arminda Mayen Performed By: Dashawn Haywood RVT D/C Instructions Discharge Diet: No restrictions Weight Bearing Status: Full weight bearing Meaningful Use Info Meaningful Use Diagnoses (Choose all that apply): None applicable Discharge Plan Admission Admit Date/Time: 11/23/22 22:15 Primary Reason for Your Visit: cellulitis right leg Attending Provider: Gatito Chase Primary Care Provider: Arminda Mayen Consulting Providers: Suzi Castaneda Instructions Additional Instructions / Restrictions: Contact your family physician if your right leg has increased redness or swelling You will need follow-up concerning your iron deficiency anemia Discharge Orders/Prescriptions Prescriptions: New doxycycline monohydrate 100 mg capsule 100 mg PO BID Qty: 15 0RF Rx Instructions: start on 11/24/22 in the evening ferrous sulfate 325 mg (65 mg iron) tablet 325 mg PO BID Qty: 60 0RF Continued amlodipine 10 mg tablet 10 mg PO DAILY Qty: 90 3RF loratadine 10 MG capsule 10 mg PO DAILY Referrals / Follow Up: Arminda Mayen MD [Primary Care Provider] - See Referral Note (next week) Disposition Disposition (needs filled in before D/C Order can be placed): Home, Self Care Charges/Coding Visit Charges OBSV E&M: 71806 Observation care discharge
[2022-11-24 13:28] VITALS: BP 146/74; PULSE 97; RESP 16; TEMP 36.6; O2SAT 98
== END 2022-11-24 14:24 | disposition home or self-care (01) ==
LOC: ED 22:10 → ICU 22:32
PROVIDERS: Admitting Provider Family Medicine; Emergency Provider Emergency Medicine; PCP Internal Medicine; Visit Provider Internal Medicine
DX: L03.115 Cellulitis of right lower limb (principal); G47.33 Obstructive sleep apnea (adult) (pediatric); R60.9 Edema, unspecified; D50.9 Iron deficiency anemia, unspecified; J45.909 Unspecified asthma, uncomplicated; I10 Essential (primary) hypertension; Z79.899 Other long term (current) drug therapy; Z23 Encounter for immunization; E66.9 Obesity, unspecified; Z68.38 Body mass index [BMI] 38.0-38.9, adult; D22.71 Melanocytic nevi of right lower limb, including hip
CPT/HCPCS: 36415; 80048; 80053; 82274; 82607; 82728; 82746; 83540; 83550; 85025; 87040; 93971; 96361; 96365; 96366; 96367; 96372; 99218; 99284; J7030; J7050; 90686; A4216; G0378; J0295; J0696

== ENCOUNTER → 2023-04-12 | Outpatient (CLI) | payer OTHER, SELFPAY ==
[2023-04-12 12:31] LABS: Absolute Lymphocyte Count 1.65 X10^3/uL (0.83-4.51); Absolute Neutrophil Count 5.1 X10^3/uL (2.0-7.7); Basophil# 0.05 X10^3/uL; Basophil% 0.7 % (0-1); Eosinophil# 0.15 X10^3/uL; Hematocrit 42.6 % (40-54); Hemoglobin 14.6 g/dL (13.0-16.5); Lymphocyte # 1.65 X10^3/ul (0.83-4.51); Lymphocyte % 22.3 % (19-41); Mean Corp Hgb Conc 34.3 g/dL (32-36); Mean Corpuscular Hgb 31.1 pg (27.0-32.0); Mean Corpuscular Volume 90.6 fL (80-94); Mean Platelet Vol. 10.4 fl (6.2-12.0); Monocyte% 5.4 % (0-10); NRBC Flagged by Analyzer 0 % (0-5); Neutrophil # 5.12 X10^3/uL (2.7-7.7); Neutrophil % 69.3 % (47-70); Platelet Count 349 K/mm3 (150-450); RBC Distribution Width CV 12.5 % (11.6-14.6); White Blood Count 7.4 K/mm3 (4.4-11.0)
[2023-04-12 13:08] LABS: ALB/GLOB Ratio 1.3 RATIO (0.9-2.4); AST(SGOT) 29 U/L (15-37); Alanine Aminotransfer ALT/SGPT 61 U/L (16-61); Alkaline Phosphatase 71 U/L (45-117); Anion Gap 7 (5-15); BUN 10 mg/dL (7-18); BUN/Creat Ratio 9.3 RATIO (10-20); Calcium,Total 9.1 mg/dL (8.5-10.1); Chloride 108 mmol/L (98-107); Cholesterol 171 mg/dL (200); Creatinine, Serum 1.07 mg/dL (0.70-1.30); EST Glomerular Filtration Rate 82 mL/min (>60); Est Glom Filt Rate - Afr Amer 100 mL/min (>60); Ferritin 121 ng/mL (26-388); Globulin 3.1 g/dL (2.2-4.2); Glucose 101 mg/dL (74-106); High Density Lipoprotein 37 mg/dL; Iron 110 ug/dL (65-175); Iron Binding Capacity,Total 321 ug/dL (250-450); Protein, Total 7.1 g/dL (6.4-8.2); Sodium Level 141 mmol/L (136-145); Triglycerides 112 mg/dL; Very Low Density Lipoprotein 22 mg/dL (5-40)
== END | disposition home or self-care (01) ==
LOC: BIMLAB 09:27
PROVIDERS: PCP Internal Medicine; Referring Provider Internal Medicine; Visit Provider Internal Medicine
DX: I10 Essential (primary) hypertension (principal); D64.9 Anemia, unspecified
CPT/HCPCS: 36415; 80053; 80061; 82728; 83540; 83550; 85025

== ENCOUNTER 2023-05-29 22:12 | Inpatient (IN) | payer OTHER, SELFPAY ==
[2023-05-29 22:12] VITALS: PULSE 112
[2023-05-29 22:14] VITALS: BP 129/77; PULSE 122; RESP 24; TEMP 37.7; O2SAT 100; BMI 39.2
--- NOTE | 2023-05-29 23:09 | EDS_ITS ---
HPI History of Present Illness Chief Complaint: Cellulitis Informant: patient Onset/Context/Timing Onset: Today Context: Sudden Onset Timing: Continuous Quality: Aching, warm Location: Right leg Worsened by: Laying on his leg Relieved by: Nothing Narrative Narrative: Patient presents with cellulitis to his right leg that began today. Patient states he noted some pain in his groin and right lower leg earlier today. Patient states that he developed some chills and a fever after that. Patient states his fever was up to 102.9 at home. Patient states he was having some general myalgias, back pain, and neck pain. Patient was having some nausea and vomiting. Patient states he also felt somewhat short of breath. Patient states his pain is worse when he lays on his leg. Patient denies any paresthesias or weakness. [facility] Medical History (Updated 05/30/23 @ 02:[address] Antonio Ferguson DO) Asthma Congenital absence of left kidney Discoloration of skin Elevated random blood glucose level Fatty infiltration of liver Gallstones Hypersomnolence Hypertension (Unknown) TARAS (iron deficiency anemia) Localized swelling of right foot Melanoma Obesity (BMI 30-39.9) DORENE (obstructive sleep apnea) Rash Shortness of breath Shoulder pain Sleep apnea Venous insufficiency of both lower extremities Home Medications loratadine 10 mg capsule 10 mg PO DAILY 02/13/21 [History Last Taken Unknown] ferrous sulfate 325 mg (65 mg iron) tablet 325 mg PO BID #60 tabs 11/24/22 [Rx Last Taken Unknown] triamterene 37.5 mg-hydrochlorothiazide 25 mg tablet 1 tab PO QAM #30 tabs 03/08/23 [Rx Last Taken Unknown] Allergy/AdvReac Type Severity Reaction Status Date / Time shellfish derived Allergy Severe Unknown Verified 05/29/23 22:14 Family History Mother Asthma Cancer basal cell Surgical History (Updated 05/29/23 @ 23:[address] Antonio Ferguson DO) History of cholecystectomy History of hernia repair History of wisdom tooth extraction Hx of foot surgery Social History household members: spouse Smoking Status: Never smoker alcohol intake: never substance use type: does not use what type of physical activity do you participate in: bicycling frequency: 1-2 times per week ROS ROS ED Constitutional Constitutional ED: Reports chills and fever(s) Eyes Eyes: Denies blurry vision or change in vision ENT ENT ED: Denies rhinorrhea or sore throat Cardiovascular Cardiovascular: Denies chest pain or palpitations Respiratory/Chest Respiratory/Chest: Reports dyspnea; Denies cough Gastrointestinal Gastrointestinal: Reports nausea and vomiting Genitourinary Genitourinary ED: Denies dysuria or hematuria Musculoskeletal Musculoskeletal: Reports back pain, myalgias and neck pain Integumentary Reports rash; Denies abscess Neurologic Neurologic: Denies headache(s) or weakness Allergic/Immunologic Allergic/Immunologic ED: Denies mouth swelling or urticaria EXAM Physical Exam Const Vital Signs: 05/29/23 22:14 05/29/23 22:12 Temperature 100 F H Temperature Source Oral Pulse Rate 122 H 112 H Respiratory Rate 24 H Blood Pressure 129/77 H Blood Pressure Mean 94 Pulse Ox 100 Positive well nourished and well developed General Appearance ED: well developed and NAD HEENT Reports moist mucous membranes Neck supple and no JVD Resp normal respiratory effort and clear to auscultation bilaterally Cardio regular rate, regular rhythm and no murmurs GI normal to inspection, nondistended, normoactive bowel sounds and non-tender Palpation: soft Extremity Extremity Narrative: There is tenderness, erythema, and warmth over the medial aspect of the right lower leg up to the knee. There is no abscess. There are some insect bites noted over the lower leg. There is no discharge or drainage. There is full range of motion. General Extremety ED: Yes tenderness Neuro oriented x3, CN's II-XII intact bilaterally and no sensory deficits noted Sensorium / Orientation: alert Motor Exam: strength 5/5 throughout Psych mental status grossly normal Skin no rashes or lesions noted MDM MDM MDM Narrative Medical decision making narrative: Differential diagnosis includes cellulitis, and sepsis. CBC will be obtained to assess for leukocytosis and anemia. Basic metabolic profile will be obtained to assess for electrolyte abnormality and renal function. Blood cultures will be obtained to assess for sepsis. Lactate will be obtained to assess for sepsis. Lab Data Attestation: I reviewed the patient's lab results. Lab results narrative: CBC was reviewed. There is a leukocytosis of 19.7. Absolute neutrophil count was elevated 18.1. Basic metabolic profile was reviewed. Creatinine was slightly elevated at 1.37. Glucose was 122. The remainder was within normal limits. Lactic acid was reviewed and was slightly elevated at 2.2. Labs: Laboratory Results - last 24 hr 05/29/23 05/29/23 05/29/23 00:05 03:35 03:35 WBC 19.7 H Cancelled Corrected WBC Cancelled RBC 4.43 L Cancelled Hgb 13.9 Cancelled Hct 40.0 Cancelled MCV 90.3 Cancelled MCH 31.4 Cancelled MCHC 34.8 Cancelled RDW Std Deviation 40.3 Cancelled RDW Coeff of Geoff 12.2 Cancelled Plt Count 294 Cancelled MPV 10.0 Cancelled Immature Gran % (Auto) 0.600 Cancelled Neut % (Auto) 92.0 H Cancelled Lymph % (Auto) 2.5 L Cancelled [place] % (Auto) 4.6 Cancelled Eos % (Auto) 0.0 Cancelled Baso % (Auto) 0.3 Cancelled Absolute Neuts (auto) 18.1 H Cancelled Absolute Lymphs (auto) 0.50 L Cancelled Total Counted Cancelled Neutrophils % (Manual) Cancelled Band Neutrophils % Cancelled Lymphocytes % (Manual) Cancelled Monocytes % (Manual) Cancelled Eosinophils % (Manual) Cancelled Basophils % (Manual) Cancelled Metamyelocytes % Cancelled Myelocytes % Cancelled Promyelocytes % Cancelled Blast Cells % Cancelled Plasma Cell % (Manual) Cancelled Other Cells % Cancelled Nucleated RBC % 0 Cancelled Nucleated RBCs/100 WBC Cancelled Differential Comment Cancelled Diff Path Review Cancelled Hypersegmented Neuts Cancelled Atypical Lymphocytes Cancelled Reactive Lymphocytes Cancelled Smudge Cells Cancelled Toxic Granulation Cancelled Toxic Vacuolation Cancelled Dohle Bodies Cancelled Binh Rods Cancelled Platelet Estimate Cancelled Plt Morphology Comment Cancelled RBC Morphology Cancelled Cancelled Polychromasia Cancelled Hypochromasia Cancelled Poikilocytosis Cancelled Basophilic Stippling Cancelled Anisocytosis Cancelled Microcytosis Cancelled Macrocytosis Cancelled Spherocytes Cancelled Sickle Cells Cancelled Target Cells Cancelled Tear Drop Cells Cancelled Ovalocytes Cancelled Stomatocytes Cancelled [place] Bodies Cancelled [place] Cells Cancelled Bite Cells Cancelled Crenated Cell Cancelled Acanthocytes (Spur) Cancelled Rouleaux Cancelled Schistocytes Cancelled Sodium 135 L Potassium 4.1 Chloride 106 Carbon Dioxide 21.0 Anion Gap 8 BUN 15 Creatinine 1.37 H Estim Creat Clear Calc 90.64 Est GFR (MDRD) Af Amer 75 Est GFR (MDRD) Non-Af 62 BUN/Creatinine Ratio 10.9 Glucose 122 H Lactic Acid 2.2 H* Calcium 9.3 Treatment and Re-Evaluation :: Blood cultures were obtained. Patient was given a dose of Ancef. Because of the leukocytosis and lactic acidosis, vancomycin was added. Patient was advised of his results. Case was discussed with the hospitalist. She will admit the patient to PCU. Patient and spouse understand and are agreeable with the plan. All questions were answered. Discharge Plan Dx/Rx/DC Orders Clinical Impression: Cellulitis of leg, right, Leukocytosis Disposition Disposition: Acute Care Hospital [facility]
[2023-05-29] MEDS: Acetaminophen 500 MG Tablet 1000 MG PO (23:29)
[2023-05-30] VITALS (8 sets, daily range): BP systolic 118–174; BP diastolic 52–84; PULSE 94–114; RESP 16–18; TEMP 37.2–38.6; O2SAT 94–99; BMI 39.3
[2023-05-30] MEDS: Cefazolin 1 GM/50 ML BAG IV (00:05)
[2023-05-30 00:06] LABS: Anion Gap 8 (5-15); BUN 15 mg/dL (7-18); BUN/Creat Ratio 10.9 RATIO (10-20); Calcium,Total 9.3 mg/dL (8.5-10.1); Chloride 106 mmol/L (98-107); Creatinine, Serum 1.37 mg/dL (0.70-1.30); EST Glomerular Filtration Rate 62 mL/min (>60); Est Glom Filt Rate - Afr Amer 75 mL/min (>60); Estimated Creatinine Clearance 90.64 ml/min; Glucose 122 mg/dL (74-106); Potassium 4.1 mmol/L (3.5-5.1); Sodium Level 135 mmol/L (136-145)
[2023-05-30 00:15] LABS: Absolute Neutrophil Count 18.1 X10^3/uL (2.0-7.7); Basophil# 0.05 X10^3/uL; Basophil% 0.3 % (0-1); Hemoglobin 13.9 g/dL (13.0-16.5); Lymphocyte % 2.5 % (19-41); Mean Corp Hgb Conc 34.8 g/dL (32-36); Mean Corpuscular Hgb 31.4 pg (27.0-32.0); Mean Corpuscular Volume 90.3 fL (80-94); Monocyte# 0.91 X10^3/uL; Monocyte% 4.6 % (0-10); NRBC Flagged by Analyzer 0 % (0-5); Neutrophil # 18.09 X10^3/uL (2.7-7.7); POSITIVE DIFFERENTIAL YES; Platelet Count 294 K/mm3 (150-450); RBC Distribution Width CV 12.2 % (11.6-14.6); RBC Distribution Width SD 40.3 fl (35.1-43.9); Red Blood Count 4.43 M/mm3 (4.6-6.2); White Blood Count 19.7 K/mm3 (4.4-11.0)
[2023-05-30 00:17] LABS: Lactic Acid 2.2 mmol/L (0.4-1.9)
[2023-05-30 00:17] LABS: Differential Indicated SCAN CRITERIA MET
--- NOTE | 2023-05-30 02:55 | HP.PCM.HOS_ITS ---
HPI - General General Date of Admission: 05/30/23 Date of Service: 05/30/23 Chief Complaint: RLE pain, redness, fever. HPI Narrative The patient is a 37 y/o M w/ PMHx: 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 Jackson, Obesity, Asthma w/ allergic rhinitis, DORENE, HTN who presents to the [facility] ED on 05/30/2023 with history of onset of discomfort to his right groin as well as right lower extremity starting earlier in the day the day prior to presentation with onset of chills as well as a fever following and concurrently erythema which began to progress up his right lower extremity with reported fever at home 102.9 with also some generalized malaise as well as nausea and emesis with concurrent right lower extremity pain prompting eventual ED evaluation. He notes the pain is worse in the right lower extremity if he is laying on it. He notes it appears less red and involves less of the leg than his prior cellulitic presentation but this time he notes it came on more severely with fever, chills and N/V. Work-up in the ED included T100, heart rate 122, BP 129/77, respiratory rate 24, 100% on room air, 05/29/2023 CBC obtained earlier in the day with WBC 19.7, hemoglobin 13.9, platelet 294 with significant left shift and BMP with sodium 135, BUN/c reatinine 15/1.37, glucose 122, lactic acid mildly elevated 2.2. In the ED patient administered Tylenol 1000 mg p.o. x1 as well as Ancef and IV vancomycin. [facility] Medical History Asthma Congenital absence of left kidney Discoloration of skin Elevated random blood glucose level Fatty infiltration of liver Gallstones Hypersomnolence Hypertension (Unknown) TARAS (iron deficiency anemia) Localized swelling of right foot Melanoma Obesity (BMI 30-39.9) DORENE (obstructive sleep apnea) Rash Shortness of breath Shoulder pain Sleep apnea Venous insufficiency of both lower extremities Home Medications loratadine 10 mg capsule 10 mg PO DAILY 02/13/21 [History Last Taken Unknown] ferrous sulfate 325 mg (65 mg iron) tablet 325 mg PO BID #60 tabs 11/24/22 [Rx Last Taken Unknown] triamterene 37.5 mg-hydrochlorothiazide 25 mg tablet 1 tab PO QA #30 tabs 03/08/23 [Rx Last Taken Unknown] mecobalamin (vitamin B12) 1,000 mcg chewable tablet (B12 Active) 1,000 mcg PO DAILY 05/30/23 [History Last Taken Unknown] Allergy/AdvReac Type Severity Reaction Status Date / Time shellfish derived Allergy Severe Unknown Verified 05/29/23 22:14 Family History Mother Asthma Cancer basal cell Family History other other (No marked paternal family history including HD, DM, CA.) Surgical History History of cholecystectomy History of hernia repair History of wisdom tooth extraction Hx of foot surgery Social History household members: spouse Smoking Status: Never smoker alcohol intake: never substance use type: does not use what type of physical activity do you participate in: bicycling frequency: 1-2 times per week ROS ROS Narrative Admission Review of Systems: CONSTITUTIONAL: No weight loss, + fever, chills, weakness or fatigue. HEENT: Eyes: No visual loss, blurred vision, double vision or yellow sclerae. Ears, Nose, Throat: No hearing loss, sneezing, congestion, runny nose or sore throat. SKIN: + RLE redness, pain. CARDIOVASCULAR: + Mild lightheadedness. No chest pain, chest pressure or chest discomfort, palpitations, edema, orthopnea, syncopal events. RESPIRATORY: No shortness of breath, cough or sputum, wheezing, hemoptysis. GASTROINTESTINAL: + anorexia, nausea, vomiting, No diarrhea, abdominal pain, melena, BRBPR. GENITOURINARY: No dysuria, frequency, urgency or retention. NEUROLOGICAL: + Mild lightheadedness. No headache, dizziness, syncope, paralysis, ataxia, numbness or tingling in the extremities, focal weakness, change in bowel or bladder control, seizure. MUSCULOSKELETAL: + muscle, back pain, joint pain or stiffness. HEMATOLOGIC: + anemia, bleeding or bruising. LYMPHATICS: No enlarged nodes. No history of splenectomy. PSYCHIATRIC: No history of depression or anxiety. ENDOCRINOLOGIC: No reports of sweating, cold or heat intolerance. No polyuria or polydipsia. ALLERGIES: + history of asthma, rhinitis. Vital Signs Vital Signs Vital Signs: 05/29/23 22:14 05/29/23 22:12 Temperature 100 F H Temperature Source Oral Pulse Rate 122 H 112 H Respiratory Rate 24 H Blood Pressure 129/77 H Blood Pressure Mean 94 Pulse Ox 100 Weight Weight: 322 lb 12.8 oz Body Mass Index (BMI) 39.2 Physical Exam Narrative Physical Examination: General: Awake, alert, oriented x 3 and cooperative, seated upright in the ED bed, fatigued appearing otherwise no acute distress. Skin: Normal color, normal turgor, no icterus, no cyanosis except for noted well-healed skin grafting to the right plantar medial foot as well as erythema from the R ankle to the knee region, warm to touch, mild edema compared to LLE (acute on chronic). HEENT: AT/NC, EOMI, PERRLA, mildly dry MM, no carotid bruits or JVD noted. Lungs: CTA bilaterally, moderate effort, mild decrease BL bases, mildly increased RR, no rales, ronchi or wheezing. Heart: Notable tachycardia with regular rhythm; no gallop, rub audible. Abdomen: Soft, obese, NTTP, ND, mildly hyperactive BS, no HSM. Extremities: No cyanosis, no clubbing, see skin. Neurological: Patient awake, alert, oriented as noted, cognitive function intact; pupils equally reactive to light and accommodation, cranial nerves shawna sly normal, moving all 4 extremities, no focal deficits, strength mildly to moderately decreased secondary to acute presentation complaints. Psychiatric: Affect appears fatigued, no acute evidence of depressive or anxiety feelings. Results Lab / Micro Data 05/29/23 00:05 05/29/23 03:35 Labs: Laboratory Results - last 24 hr 05/29/23 00:05: WBC 19.7 H, RBC 4.43 L, Hgb 13.9, Hct 40.0, MCV 90.3, MCH 31.4, MCHC 34.8, RDW Std Deviation 40.3, RDW Coeff of Geoff 12.2, Plt Count 294, MPV 10.0, Immature Gran % (Auto) 0.600, Neut % (Auto) 92.0 H, Lymph % (Auto) 2.5 L, [place] % (Auto) 4.6, Eos % (Auto) 0.0, Baso % (Auto) 0.3, Absolute Neuts (auto) 18.1 H, Absolute Lymphs (auto) 0.50 L, Nucleated RBC % 0 05/29/23 03:35: WBC Cancelled, Corrected WBC Cancelled, RBC Cancelled, Hgb Cancelled, Hct Cancelled, MCV Cancelled, MCH Cancelled, MCHC Cancelled, RDW Std Deviation Cancelled, RDW Coeff of Geoff Cancelled, Plt Count Cancelled, MPV Cancelled, Immature Gran % (Auto) Cancelled, Neut % (Auto) Cancelled, Lymph % (Auto) Cancelled, [place] % (Auto) Cancelled, Eos % (Auto) Cancelled, Baso % (Auto) Cancelled, Absolute Neuts (auto) Cancelled, Absolute Lymphs (auto) Cancelled, To luis Counted Cancelled, Neutrophils % (Manual) Cancelled, Band Neutrophils % Cancelled, Lymphocytes % (Manual) Cancelled, Monocytes % (Manual) Cancelled, Eosinophils % (Manual) Cancelled, Basophils % (Manual) Cancelled, Metamyelocytes % Cancelled, Myelocytes % Cancelled, Promyelocytes % Cancelled, Blast Cells % Cancelled, Plasma Cell % (Manual) Cancelled, Other Cells % Cancelled, Nucleated RBC % Cancelled, Nucleated RBCs/100 WBC Cancelled, Differential Comment Cancelled, Diff Path Review Cancelled, Hypersegmented Neuts Cancelled, Atypical Lymphocytes Cancelled, Reactive Lymphocytes Cancelled, Smudge Cells Cancelled, Toxic Granulation Cancelled, Toxic Vacuolation Cancelled, Dohle Bodies Cancel led, Binh Rods Cancelled, Platelet Estimate Cancelled, Plt Morphology Comment Cancelled, RBC Morphology Cancelled 05/29/23 03:35: RBC Morphology Cancelled, Polychromasia Cancelled, Hypochromasia Cancelled, Poikilocytosis Cancelled, Basophilic Stippling Cancelled, Anisocytosis Cancelled, Microcytosis Cancelled, Macrocytosis Cancelled, Spherocytes Cancelled, Sickle Cells Cancelled, Target Cells Cancelled, Tear Drop Cells Cancelled, Ovalocytes Cancelled, Stomatocytes Cancelled, [place] Bodies Cancelled, [place] Cells Cancelled, Bite Cells Cancelled, Crenated Cell Cancelled, Acanthocytes (Spur) Cancelled, Rouleaux Cancelled, Schistocytes Cancelled, Sodium 135 L, Potassium 4.1, Chloride 106, Carbon Dioxide 21.0, Anion Gap 8, BUN 15, Creatinine 1.37 H, Estim Creat Clear Calc 90.64, Est GFR (MDRD) Af Amer 75, Est GFR (MDRD) Non-Af 62, BUN/Creatinine Ratio 10.9, Glucose 122 H, Lactic Acid 2.2 H*, Calcium 9.3 Assessment & Plan Assessment/Plan (1) Cellulitis: PLAN: Plan The patient is a 37 y/o M w/ PMHx: 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 Jackson, Obesity, Asthma w/ allergic rhinitis, DORENE, HTN who presents to the [facility] ED on 05/30/2023 with history of onset of discomfort to his right groin as well as right lower extremity starting earlier in the day the day prior to presentation with onset of chills as well as a fever following and concurrently erythema which began to progress up his right lower extremity with reported fever at home 102.9 with also some generalized malaise as well as nausea and emesis with concurrent right lower extremity pain prompting eventual ED evaluation. #1. Acute Sepsis secondary to Acute Right Lower Extremity Cellulitis (tachycardia, tachypnea, febrile with source and lactic acidosis as well as renal insufficiency): Will admit to [facility], and severity of presentation with fever, tachycardia, tachypnea and significant leukocytosis will place on IV vancomycin and IV Zosyn per cellulitis order set with de-escalation as able, plan repeat CBC in AM, continue affected extremity elevation above heart when seated and in bed, monitor erythema outline with VS checks, will obtain duplex ultrasound to be cautious, PRN pain/antiemetic regimen. #2. Mild acute renal insufficiency: Likely secondary to acute presentation #1: Admission BUN/creatinine 15/1.37, baseline creatinine primarily 1.0-1.1 max, will continue to trend CMP. #3. Melanocytic nevus: Patient following w/ Dr. Jackson, nevus on the sole of R foot since , biopsy done on 10/17/2021 which showed Melanoma with PET/CT on 11/18/2021 was negative. 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 Now patient is only following w/ Dermatology, awaiting visit, recommended Dr. Estuardo Acosta. #4. Chronic asthma with allergic rhinitis: Not on any chronic inhalers, PRN albuterol, continue patient home loratadine. #5. Obesity: Weight loss and lifestyle changes encouraged. #6. Hypertension: Judiciously hydrating given presentation, mild renal insufficiency as noted, will temporally hold patient diuretic regimen and in the interim placed on PRN hydralazine. #7. Chronic anemia/Fe deficiency: Admission Hgb 13.9, stable, improved, continue Fe supplementation and CBC trending. #8. DORENE: CPAP nightly. #9. DVT prophylaxis: Lovenox. #10. CODE STATUS: Full code. Admission Evaluation Time spent evaluating chart, patient history, patient evaluation, care planning and discussion with specialists: 60 minutes. Charges/Coding Visit Charges Inpatient E&M: 43819 Init Hosp L2
--- NOTE | 2023-05-30 03:00 | VDLE_ITS ---
Reason For Study: pain RIGHT GSV is normal. CFV is compressible, spontaneous, phasic, competent and demonstrates normal augmentation. FV is compressible, spontaneous, phasic, competent and demonstrates normal augmentation. POP V is compressible, spontaneous, phasic, competent and demonstrates normal augmentation. T/P Trunk is compressible. PTV is compressible. RT PerV is compressible. Heterogeneous areas in the right groin measuring .77 x 1.1 and .86 x .93 in short. Vascular flow is noted. Procedure This is a venous duplex using B-mode, color flow and spectral Doppler. Exam performed portable in patient room. The exam was abbreviated due to the COVID 19 protocol. The exam was diagnostic. A preliminary report was called and/or faxed to Dr. Chase. VL/Venous Duplex US, Unilateral Interpretation Summary There is no evidence of right lower extremity deep vein thrombosis. Right great saphenous vein appears patent and compressible segmentally. Right groin 0.77 x 1.1 and 0.86 x 0.93 centimeter structures with vascular flow consistent with lymph nodes. Clinical correlation would be appropriate. Abbreviated COVID-19 protocol utilized Ordering Physician: Suzi Castaneda Performed By: Joseph Rangel RVT
[2023-05-30 03:45] LABS: Reflex Lactate? Y
[2023-05-30 04:57] LABS: Lactic Acid 1.7 mmol/L (0.4-1.9)
--- NOTE | 2023-05-30 05:27 | PCM.RX.CS ---
Consult Antibiotic Management Pharmacy has been consulted to manage selected antiobiotic: Vancomycin Type of Intervention Type of Consult: New start Suspected Infection Suspected Infection: Sepsis and Skin/Soft tissue Labs Labs: Sodium 135 mmol/L (136-145) L 05/29/23 03:35 Potassium 4.1 mmol/L (3.5-5.1) 05/29/23 03:35 Chloride 106 mmol/L (98-107) 05/29/23 03:35 Carbon Dioxide 21.0 mmol/L (21.0-32.0) 05/29/23 03:35 Anion Gap 8 (5-15) 05/29/23 03:35 BUN 15 mg/dL (7-18) 05/29/23 03:35 Creatinine 1.37 mg/dL (0.70-1.30) H 05/29/23 03:35 Est GFR (MDRD) Af Amer 75 mL/min (>60) 05/29/23 03:35 Est GFR (MDRD) Non-Af 62 mL/min (>60) 05/29/23 03:35 BUN/Creatinine Ratio 10.9 RATIO (10-20) 05/29/23 03:35 Glucose 122 mg/dL (74-106) H 05/29/23 03:35 Goal Trough Goal Trough: 15-20 mcg/mL Pharmacy Plan for Drug Dosing Pharmacy Plan for Drug Dosing: IV VANCOMYCIN Consulting Physician: Dr. Castaneda Indication: SSTI Goal Trough: 15-20 SrCr: 1.37 CrCl: 115 Ml/min (using AdjBW) Comments: Loading dose 2000mg IV x1 ordered and administered in ED 05/30/23 @0224 Vancomycin Dose: 1500mg IV Q8hr to start 05/30/23 @1000 Pending Level: 05/31/23 @0130, prior to 4th total dose per protocol Pharmacy Service will continue to monitor and adjust dosing as required.
[2023-05-30] MEDS: 0.9% Normal Saline 1,000 ML 999 ML IV ×2 (05:40→06:55)
[2023-05-30 05:42] LABS: Absolute Lymphocyte Count 0.77 X10^3/uL (0.83-4.51); Absolute Neutrophil Count 15.9 X10^3/uL (2.0-7.7); Basophil# 0.03 X10^3/uL; Basophil% 0.2 % (0-1); Hematocrit 39.2 % (40-54); Hemoglobin 13.9 g/dL (13.0-16.5); Lymphocyte # 0.77 X10^3/ul (0.83-4.51); Lymphocyte % 4.4 % (19-41); Mean Corp Hgb Conc 35.5 g/dL (32-36); Mean Corpuscular Hgb 32.3 pg (27.0-32.0); Mean Corpuscular Volume 91.2 fL (80-94); Monocyte# 0.63 X10^3/uL; Monocyte% 3.6 % (0-10); NRBC Flagged by Analyzer 0 % (0-5); Neutrophil # 15.89 X10^3/uL (2.7-7.7); Neutrophil % 91.1 % (47-70); Platelet Count 269 K/mm3 (150-450); RBC Distribution Width CV 12.6 % (11.6-14.6); RBC Distribution Width SD 41.7 fl (35.1-43.9); White Blood Count 17.5 K/mm3 (4.4-11.0)
[2023-05-30] MEDS: 0.9% Normal Saline 1,000 ML 125 ML IV (05:53)
[2023-05-30] MEDS: Pregabalin 50 MG Capsule PO ×2 (05:58→21:17)
[2023-05-30 06:10] LABS: ALB/GLOB Ratio 1.1 RATIO (0.9-2.4); AST(SGOT) 20 U/L (15-37); Alanine Aminotransfer ALT/SGPT 52 U/L (16-61); Albumin, Serum 3.5 g/dL (3.2-5.0); Alkaline Phosphatase 60 U/L (45-117); Anion Gap 6 (5-15); BUN 15 mg/dL (7-18); BUN/Creat Ratio 10.9 RATIO (10-20); Calcium,Total 8.4 mg/dL (8.5-10.1); Chloride 108 mmol/L (98-107); Creatinine, Serum 1.38 mg/dL (0.70-1.30); EST Glomerular Filtration Rate 61 mL/min (>60); Est Glom Filt Rate - Afr Amer 74 mL/min (>60); Estimated Creatinine Clearance 89.98 ml/min; Globulin 3.2 g/dL (2.2-4.2); Glucose 146 mg/dL (74-106); Potassium 3.9 mmol/L (3.5-5.1); Protein, Total 6.7 g/dL (6.4-8.2); Sodium Level 139 mmol/L (136-145)
[2023-05-30 08:36] LABS: Procalcitonin 1.28 ng/mL (0.00-0.09)
[2023-05-30] MEDS: Acetaminophen 325 MG Tablet 650 MG PO ×3 (10:54→21:16)
[2023-05-30] MEDS: Loratadine 10 MG Tablet PO (10:55)
[2023-05-30] MEDS: Ferrous Sulfate 325 MG Tablet PO ×2 (10:55→15:57)
[2023-05-30] MEDS: Enoxaparin 40 MG/0.4 ML Syringe SC (10:55)
--- NOTE | 2023-05-30 18:45 | PN.HOSP_ITS ---
Reason for Visit Reason for Visit: Diagnoses Cellulitis, unspecified (05/30/23) Subjective Subjective Patient was seen and examined today, his right leg was negative for DVT, his right leg is still reddened, his white blood cell count is 17.5 today. Patient's temperature today at 320 was 101.2. Patient was diaphoretic this afternoon but not extremely uncomfortable. Objective Data Objective Data Vital Signs: Vital Signs Temp Pulse Resp BP Pulse Ox O2 Del Method 101.2 F H 107 H 16 136/66 H 98 Room Air 05/30/23 15:20 05/30/23 15:20 05/30/23 15:20 05/30/23 15:20 05/30/23 15:20 05/30/23 15:20 Oxygen Delivery Method Room Air Weight: 146.7 kg Body Mass Index (BMI) 39.3 Intake & Output: Intake and Output for Last 24 Hours 05/28/23 05/29/23 05/30/23 23:59 23:59 23:59 Intake Total 4206.67 / 4206.67 Balance 4206.67 / 4206.67 Lab / Micro Data 05/30/23 05:20 05/30/23 05:20 Labs: Laboratory Results - last 24 hr 05/29/23 00:05: WBC 19.7 H, RBC 4.43 L, Hgb 13.9, Hct 40.0, MCV 90.3, MCH 31.4, MCHC 34.8, RDW Std Deviation 40.3, RDW Coeff of Geoff 12.2, Plt Count 294, MPV 10.0, Immature Gran % (Auto) 0.600, Neut % (Auto) 92.0 H, Lymph % (Auto) 2.5 L, [place] % (Auto) 4.6, Eos % (Auto) 0.0, Baso % (Auto) 0.3, Absolute Neuts (auto) 18.1 H, Absolute Lymphs (auto) 0.50 L, Nucleated RBC % 0 05/29/23 03:35: WBC Cancelled, Corrected WBC Cancelled, RBC Cancelled, Hgb Cancelled, Hct Cancelled, MCV Cancelled, MCH Cancelled, MCHC Cancelled, RDW Std Deviation Cancelled, RDW Coeff of Geoff Cancelled, Plt Count Cancelled, MPV Cancelled, Immature Gran % (Auto) Cancelled, Neut % (Auto) Cancelled, Lymph % (Auto) Cancelled, [place] % (Auto) Cancelled, Eos % (Auto) Cancelled, Baso % (Auto) Cancelled, Absolute Neuts (auto) Cancelled, Absolute Lymphs (auto) Cancelled, Total Counted Cancelled, Neutrophils % (Manual) Cancelled, Band Neutrophils % Cancelled, Lymphocytes % (Manual) Cancelled, Monocytes % (Manual) Cancelled, E osinophils % (Manual) Cancelled, Basophils % (Manual) Cancelled, Metamyelocytes % Cancelled, Myelocytes % Cancelled, Promyelocytes % Cancelled, Blast Cells % Cancelled, Plasma Cell % (Manual) Cancelled, Other Cells % Cancelled, Nucleated RBC % Cancelled, Nucleated RBCs/100 WBC Cancelled, Differential Comment Cancelled, Diff Path Review Cancelled, Hypersegmented Neuts Cancelled, Atypical Lymphocytes Cancelled, Reactive Lymphocytes Cancelled, Smudge Cells Cancelled, Toxic Granulation Cancelled, Toxic Vacuolation Cancelled, Dohle Bodies Cancelled, Binh Rods Cancelled, Platelet Estimate Cancelled, Plt Morphology Comment Cancelled, RBC Morphology Cancelled 05/29/23 03:35: RBC Morphology Cancelled, Polychromasia Cancelled, Hypochromasia Cancelled, Poikilocytosis Cancelled, Basophilic Stippling Cancelled, Anisocytosis Cancelled, Microcytosis Cancelled, Macrocytosis Cancelled, Spherocytes Cancelled, Sickle Cells Cancelled, Target Cells Cancelled, Tear Drop Cells Cancelled, Ovalocytes Cancelled, Stomatocytes Cancelled, Marshall-Neche Bodies Cancelled, [place] Cells Cancelled, Bite Cells Cancelled, Crenated Cell Cancelled, Acanthocytes (Spur) Cancelled, Rouleaux Cancelled, Schistocytes Cancelled, Sodium 135 L, Potassium 4.1, Chloride 106, Carbon Dioxide 21.0, Anion Gap 8, BUN 15, Creatinine 1.37 H, Estim Creat Clear Calc 90.64, Est GFR (MDRD) Af Amer 75, Est GFR (MDRD) Non-Af 62, BUN/Creatinine Ratio 10.9, Glucose 122 H, Lactic Acid 2.2 H*, Calcium 9.3 05/30/23 04:10: Lactic Acid 1.7 05/30/23 05:20: WBC 17.5 H, RBC 4.30 L, Hgb 13.9, Hct 39.2 L, MCV 91.2, MCH 32.3 H, MCHC 35.5, RDW Std Deviation 41.7, RDW Coeff of Geoff 12.6, Plt Count 269, MPV 10.0, Immature Gran % (Auto) 0.700, Neut % (Auto) 91.1 H, Lymph % (Auto) 4.4 L, [place] % (Auto) 3.6, Eos % (Auto) 0.0, Baso % (Auto) 0.2, Absolute Neuts (auto) 15.9 H, Absolute Lymphs (auto) 0.77 L, Nucleated RBC % 0, Sodium 139, Potassium 3.9, Chloride 108 H, Carbon Dioxide 25.0, Anion Gap 6, BUN 15, Creatinine 1.38 H , Estim Creat Clear Calc 89.98, Est GFR (MDRD) Af Amer 74, Est GFR (MDRD) Non-Af 61, BUN/Creatinine Ratio 10.9, Glucose 146 H, Calcium 8.4 L, Total Bilirubin 1.30 H, AST 20, ALT 52, Alkaline Phosphatase 60, Total Protein 6.7, Albumin 3.5, Globulin 3.2, Albumin/Globulin Ratio 1.1 05/30/23 07:55: Procalcitonin 1.28 H Physical Exam Const alert, oriented x3, no apparent distress and healthy appearing General Appearance: cooperative, well kempt and well developed Orientation / Consciousness: awake, oriented to person, oriented to place and oriented to time HEENT normocephalic, head/scalp atraumatic and moist oral mucous membranes Eyes PERRL, EOMs intact bilaterally and conjunctivae normal Neck supple, no JVD, thyroid normal and no carotid bruits General: trachea midline Resp normal respiratory effort, no retractions, no use of accessory muscles and clear to auscultation bilaterally Auscultation: Negative for rales, rhonchi or wheezes Cardio regular rate, regular rhythm, S1 normal heart sound, S2 normal heart sound, no murmurs, no rub and no gallops GI normal to inspection, nondistended, normoactive bowel sounds, soft to palpation, non-tender and non-distended Extremity Extremity Narrative: Patient's right leg is edematous and reddened particularly over the medial aspect of the right lower leg extending into the right proximal thigh area. This area is also warm to the touch and mildly tender. Skin General Skin Exam: no breakdown Trauma: no lacerations or abrasions Neuro oriented x3, CN's II-XII intact bilaterally, no focal motor deficits and no sensory deficits noted Sensorium / Orientation: awake and alert Speech: speech normal Psych affect normal Assessment & Plan Assessment/Plan (1) Cellulitis: PLAN: Plan 1. Acute sepsis secondary to acute right lower extremity cellulitis-continue present antibiotic coverage, monitor labs #2 essential hypertension-patient's diuretics were held at this time, he has been placed on as needed hydralazine #3 chronic iron deficiency anemia-stable at this time #4 obstructive sleep apnea-patient is using his CPAP #5 recurrent cellulitis of the right leg-organism unknown at this time, continue present antibiotic coverage Total clinical time spent by myself addressing the patient's medical issues, reviewing all of his data, and collaborating with patient's care team: 35 minutes
[2023-05-31] VITALS (8 sets, daily range): BP systolic 138–157; BP diastolic 82–94; PULSE 80–100; RESP 16–18; TEMP 36.7–38.1; O2SAT 93–99; BMI 39.9
--- NOTE | 2023-05-31 03:12 | CPS ---
Pt using sleep lap cpap machine with humidity. Same settings as at home
[2023-05-31] MEDS: Acetaminophen 325 MG Tablet 650 MG PO ×2 (04:02→21:10)
[2023-05-31 04:48] LABS: Vancomycin, Trough Level 13.3 ug/mL (5.0-15.0)
--- NOTE | 2023-05-31 05:17 | PCM.RX.CS ---
Consult Antibiotic Management Pharmacy has been consulted to manage selected antiobiotic: Vancomycin Type of Intervention Type of Consult: Follow-up Labs Labs: Sodium 139 mmol/L (136-145) 05/30/23 05:20 Potassium 3.9 mmol/L (3.5-5.1) 05/30/23 05:20 Chloride 108 mmol/L (98-107) H 05/30/23 05:20 Carbon Dioxide 25.0 mmol/L (21.0-32.0) 05/30/23 05:20 Anion Gap 6 (5-15) 05/30/23 05:20 BUN 15 mg/dL (7-18) 05/30/23 05:20 Creatinine 1.38 mg/dL (0.70-1.30) H 05/30/23 05:20 Est GFR (MDRD) Af Amer 74 mL/min (>60) 05/30/23 05:20 Est GFR (MDRD) Non-Af 61 mL/min (>60) 05/30/23 05:20 BUN/Creatinine Ratio 10.9 RATIO (10-20) 05/30/23 05:20 Glucose 146 mg/dL (74-106) H 05/30/23 05:20 Vancomycin Trough 13.3 ug/mL (5.0-15.0) 05/31/23 04:15 Goal Trough Goal Trough: 15-20 mcg/mL Pharmacy Plan for Drug Dosing Pharmacy Plan for Drug Dosing: VANCOMYCIN LEVEL RECEIVED Current Vancomycin Dose: 1500MG IV Q8H Number of Doses Received: 3 Vancomycin Level: 13.3 Hours Since Last Dose: 7HR Renal Function: 1.38 Renal Function Trend: NNL TODAY Lab/Micro: Pending Vancomycin Plan/Comments: Patient had a trough drawn which resulted in a value of 13.3 (goal 15-20). Although pt is slightly subtherapeutic, there was a 12hr gap from loading dose to first scheduled dose, which could explain a lower trough. Patient is already on Q8h dosing, am hesitant to increase dose as trough is almost therapeutic, and per EMR review, patient has not gotten worse. Will continue current dose of 1500mg IV Q8h and recheck a trough in 24hr to assess dosing at that time Pending Level: 06/01/23 @0430 Pharmacy Service will continue to monitor and adjust dosing as required.
[2023-05-31 08:20] LABS: Absolute Lymphocyte Count 1.08 X10^3/uL (0.83-4.51); Absolute Neutrophil Count 7.3 X10^3/uL (2.0-7.7); Basophil# 0.02 X10^3/uL; Basophil% 0.2 % (0-1); Hematocrit 36.5 % (40-54); Hemoglobin 12.7 g/dL (13.0-16.5); Lymphocyte # 1.08 X10^3/ul (0.83-4.51); Mean Corp Hgb Conc 34.8 g/dL (32-36); Mean Corpuscular Volume 91.9 fL (80-94); Mean Platelet Vol. 10.5 fl (6.2-12.0); Monocyte# 0.54 X10^3/uL; NRBC Flagged by Analyzer 0 % (0-5); Neutrophil # 7.32 X10^3/uL (2.7-7.7); Neutrophil % 81.6 % (47-70); Platelet Count 244 K/mm3 (150-450); RBC Distribution Width CV 12.7 % (11.6-14.6); RBC Distribution Width SD 42.9 fl (35.1-43.9); Red Blood Count 3.97 M/mm3 (4.6-6.2)
[2023-05-31 08:30] LABS: Anion Gap 3 (5-15); BUN 8 mg/dL (7-18); Calcium,Total 8.4 mg/dL (8.5-10.1); Chloride 112 mmol/L (98-107); Creatinine, Serum 1.14 mg/dL (0.70-1.30); EST Glomerular Filtration Rate 77 mL/min (>60); Est Glom Filt Rate - Afr Amer 93 mL/min (>60); Estimated Creatinine Clearance 108.92 ml/min; Glucose 122 mg/dL (74-106); Potassium 3.8 mmol/L (3.5-5.1); Sodium Level 139 mmol/L (136-145)
[2023-05-31] MEDS: Loratadine 10 MG Tablet PO (10:04)
[2023-05-31] MEDS: Pregabalin 50 MG Capsule PO ×2 (10:04→21:13)
[2023-05-31] MEDS: Ferrous Sulfate 325 MG Tablet PO ×2 (10:04→17:03)
[2023-05-31] MEDS: Enoxaparin 40 MG/0.4 ML Syringe SC (10:04)
--- NOTE | 2023-05-31 10:15 | CASEMGMT ---
RN CM Face to Face with patient for initial transition planning/care coordination assessment. RN CM introduced self and role at [facility]. Patient lying in bed, alert and oriented. Patient willing to participate in assessment and is able to answer all questions appropriately. Care providers, pharmacy, and demographics verified. Patient wishes to discharge home, denies need for home health at this time. Patient states he has no further needs or concerns at this time. CM to follow for discharge planning needs that may arise. PCP: Faheem Specialists: none Preferred Pharmacy: [facility] Insurance: [facility] Prescription Benefit: yes Living Will/HPOA: none LNOK: Living Arrangements: Patient lives with in a 2 story home with access to bed and bath on first floor. Patient states he is independent and able to ambulate stairs at home. Transportation: self, DME/HHC: Patient has raised toilet and cpap at home. Patient has had [facility] in the past. Disposition Plan: Patient to discharge home with family support and follow-up plans in place. Aleena DEAL, RN, CM
[2023-05-31] MEDS: 0.9% Saline Lock 10 ML Syringe IV (13:10)
--- NOTE | 2023-05-31 18:02 | PCM.PN.HOSP ---
Reason for Visit Reason for Visit: Right lower extremity cellulitis Subjective Subjective Patient is a 37-year-old male who presented to the emergency department on 05/30/2023 with complaint of discomfort in his right groin as well as right lower extremity that started the day prior to presentation. He also had chills and fever with concurrent right lower extremity erythema which began to progressively up his right lower extremity. Tmax at home was 102.9. He also had some general malaise as well as nausea and vomiting. He does have a previous history of right lower extremity cellulitis remotely. Work-up in the emergency department demonstrated mild temperature elevation at 100, heart rate was 122, blood pressure was 129/77, respiratory rate was 24 and oxygen saturation was 100% on room air. CBC showed a leukocytosis with a white count of 19.7 and a left shift. BMP showed mildly elevated BUN and creatinine at 15 and 1.37, serum glucose of 122 and a mildly elevated lactic acid at 2.2. He was given Tylenol in the emergency department as well as Ancef and IV vancomycin. He was admitted to the medical floor where lower extremity Doppler was performed and was negative for DVT. Fever curve seems to be getting better with his Tmax in the last 24 hours at 100.5 which was early this morning. Blood pressure remained stable and slightly elevated and heart rate has improved. The patient states that clinically he is feeling much better today however his right lower extremity is still erythematous. With not much retraction from the outlined areas on presentation. His white count has normalized but he still has a left shift with an 81.6% neutrophilia. His creatinine has normalized with a serum creatinine of 1.14. And clinically he is much improved. Objective Data Objective Data Vital Signs: Vital Signs Temp Pulse Resp BP Pulse Ox O2 Del Method 98.0 F 80 18 149/94 H 96 Room Air 05/31/23 13:00 05/31/23 14:46 05/31/23 13:00 05/31/23 13:00 05/31/23 13:00 05/31/23 13:00 Oxygen Delivery Method Room Air Weight: 148.9 kg Body Mass Index (BMI) 39.9 Intake & Output: Intake and Output for Last 24 Hours 05/29/23 05/30/23 05/31/23 23:59 23:59 23:59 Intake Total 6150.00 / 6150.00 2514 / 2514 Balance 6150.00 / 6150.00 4 / 251 Lab / Micro Data 05/31/23 04:15 05/31/23 04:15 Labs: Laboratory Results - last 24 hr 05/31/23 04:15: WBC 9.0, RBC 3.97 L, Hgb 12.7 L, Hct 36.5 L, MCV 91.9, MCH 32.0, MCHC 34.8, RDW Std Deviation 42.9, RDW Coeff of Geoff 12.7, Plt Count 244, MPV 10.5, Immature Gran % (Auto) 0.200, Neut % (Auto) 81.6 H, Lymph % (Auto) 12.0 L, [place] % (Auto) 6.0, Eos % (Auto) 0.0, Baso % (Auto) 0.2, Absolute Neuts (auto) 7.3, Absolute Lymphs (auto) 1.08, Nucleated RBC % 0, Sodium 139, Potassium 3.8, Chloride 112 H, Carbon Dioxide 24.0, Anion Gap 3 L, BUN 8, Creatinine 1.14, Estim Creat Clear Calc 108.92, Est GFR (MDRD) Af Amer 93, Est GFR (MDRD) Non-Af 77, BUN/Creatinine Ratio 7.0 L, Glucose 122 H, Calcium 8.4 L, Vancomycin Trough 13.3 Radiography Diagnostic Testing: Radiology Impression Venous Doppler Study 05/30/23 03:00 Interpretation Summary There is no evidence of right lower extremity deep vein thrombosis. Right great saphenous vein appears patent and compressible segmentally. Right groin 0.77 x 1.1 and 0.86 x 0.93 centimeter structures with vascular flow consistent with lymph nodes. Clinical correlation would be appropriate. Abbreviated COVID-19 protocol utilized Ordering Physician: Suzi Castaneda Performed By: Joseph Rangel, RVT Physical Exam Const alert, oriented x3, no apparent distress and well nourished; Negative for average body habitus Constitutional Narrative: Morbidly obese, middle-aged, white male, lying in bed sleeping but awakens easily, appears comfortable nontoxic HEENT head/scalp atraumatic and moist oral mucous membranes HEENT Narrative: Mallampati 3, no thrush Head and Scalp: normocephalic Resp normal respiratory effort, no retractions, no use of accessory muscles and clear to auscultation bilaterally Auscultation: Negative for rales, rhonchi or wheezes Cardio regular rate, regular rhythm, S1 normal heart sound, S2 normal heart sound, no murmurs, no rub, no gallops and no clicks GI normal to inspection, nondistended, normoactive bowel sounds, soft to palpation and non-tender Extremity Extremity Narrative: Right lower extremity with erythema up to the distal thigh, no significant retraction from outlined area on presentation, mild swelling and increased tissue temperature, no clubbing cyanosis, left lower extremities within normal limits Neuro oriented x3, CN's II-XII intact bilaterally, moves all extremities, no focal motor deficits and no sensory deficits noted Speech: speech normal Psych affect normal Psych Narrative: Pleasant, appropriately interactive Assessment & Plan Assessment/Plan (1) Cellulitis: (2) Leukocytosis: (3) Sepsis: PLAN: Plan Sepsis secondary to right lower extremity cellulitis -Patient presented with tachycardia, tachypnea, fever, lactic acidosis and IFTIKHAR -Sepsis appears to be resolving and fever curve improving -Continue broad-spectrum antibiotics -Await cultures--> blood cultures are still pending IFTIKHAR -Baseline serum creatinine is 1.0 -Current serum creatinine is 1.1 -Serum creatinine admission was 1.37 -Continue to monitor and avoid nephrotoxins History of chronic anemia with iron deficiency -Hemoglobin stable -Continue home oral supplementations next-repeat CBC in a.m. 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
[2023-06-01 03:38] VITALS: BP 130/76; PULSE 88; RESP 18; TEMP 36.7; O2SAT 98
[2023-06-01 05:00] LABS: Absolute Neutrophil Count 4.2 X10^3/uL (2.0-7.7); Basophil# 0.04 X10^3/uL; Basophil% 0.6 % (0-1); Eosinophils% 1.6 % (0-5); Hematocrit 38.4 % (40-54); Hemoglobin 13.2 g/dL (13.0-16.5); Lymphocyte % 23.8 % (19-41); Mean Corp Hgb Conc 34.4 g/dL (32-36); Mean Corpuscular Hgb 31.7 pg (27.0-32.0); Mean Corpuscular Volume 92.3 fL (80-94); Mean Platelet Vol. 10.4 fl (6.2-12.0); Monocyte# 0.46 X10^3/uL; Monocyte% 7.3 % (0-10); NRBC Flagged by Analyzer 0 % (0-5); Neutrophil # 4.19 X10^3/uL (2.7-7.7); Neutrophil % 66.4 % (47-70); Platelet Count 251 K/mm3 (150-450); RBC Distribution Width CV 12.8 % (11.6-14.6); RBC Distribution Width SD 43.5 fl (35.1-43.9); Red Blood Count 4.16 M/mm3 (4.6-6.2); White Blood Count 6.3 K/mm3 (4.4-11.0)
[2023-06-01 05:26] LABS: Anion Gap 2 (5-15); BUN 7 mg/dL (7-18); BUN/Creat Ratio 6.8 RATIO (10-20); Calcium,Total 8.4 mg/dL (8.5-10.1); Chloride 113 mmol/L (98-107); Creatinine, Serum 1.03 mg/dL (0.70-1.30); EST Glomerular Filtration Rate 86 mL/min (>60); Est Glom Filt Rate - Afr Amer 104 mL/min (>60); Estimated Creatinine Clearance 120.56 ml/min; Glucose 104 mg/dL (74-106); Potassium 3.9 mmol/L (3.5-5.1); Sodium Level 142 mmol/L (136-145)
[2023-06-01 05:28] LABS: Vancomycin, Trough Level 18.7 ug/mL (5.0-15.0)
[2023-06-01 06:00] VITALS: BMI 39.6
[2023-06-01] MEDS: 0.9% Saline Lock 10 ML Syringe IV ×2 (06:22→09:43)
--- NOTE | 2023-06-01 06:35 | PCM.RX.CS ---
Consult Labs Labs: Sodium 142 mmol/L (136-145) 06/01/23 04:30 Potassium 3.9 mmol/L (3.5-5.1) 06/01/23 04:30 Chloride 113 mmol/L (98-107) H 06/01/23 04:30 Carbon Dioxide 27.0 mmol/L (21.0-32.0) 06/01/23 04:30 Anion Gap 2 (5-15) L 06/01/23 04:30 BUN 7 mg/dL (7-18) 06/01/23 04:30 Creatinine 1.03 mg/dL (0.70-1.30) 06/01/23 04:30 Est GFR (MDRD) Af Amer 104 mL/min (>60) 06/01/23 04:30 Est GFR (MDRD) Non-Af 86 mL/min (>60) 06/01/23 04:30 BUN/Creatinine Ratio 6.8 RATIO (10-20) L 06/01/23 04:30 Glucose 104 mg/dL (74-106) 06/01/23 04:30 Vancomycin Trough 18.7 ug/mL (5.0-15.0) H 06/01/23 04:30 Goal Trough Goal Trough: 15-20 mcg/mL Pharmacy Plan for Drug Dosing Pharmacy Plan for Drug Dosing: Pharmacy Service will continue to monitor and adjust dosing as required. Date/Time Labs Ordered Labs to be done on [date and time ordered]: 06/05 @ 0698
[2023-06-01 07:50] VITALS: O2SAT 96
[2023-06-01 09:35] VITALS: BP 138/80; PULSE 93; RESP 17; TEMP 36.9; O2SAT 98
[2023-06-01] MEDS: Ferrous Sulfate 325 MG Tablet PO (09:43)
[2023-06-01] MEDS: Pregabalin 50 MG Capsule PO (09:43)
[2023-06-01] MEDS: Loratadine 10 MG Tablet PO (09:43)
[2023-06-01] MEDS: Enoxaparin 40 MG/0.4 ML Syringe SC (09:44)
--- NOTE | 2023-06-01 12:19 | DS.PCM_ITS ---
Providers Date of Admission: 05/30/23 Date of Discharge: 06/01/23 Primary Care Physician: Dr. Arminda Mayen MD Reason For Visit: SEPSIS, CELLULITIS Diagnosis Discharge Diagnosis (1) Cellulitis: Status: Acute Code(s): L03.90 - Cellulitis, unspecified (2) Leukocytosis: Status: Acute Code(s): D72.829 - Elevated white blood cell count, unspecified (3) Sepsis: Status: Acute Code(s): A41.9 - Sepsis, unspecified organism Plan Sepsis secondary to right lower extremity cellulitis -Patient presented with tachycardia, tachypnea, fever, lactic acidosis and IFTIKHAR -Sepsis appears to be resolving and fever curve improving -Continue broad-spectrum antibiotics -Await cultures--> blood cultures are still pending IFTIKHAR -Baseline serum creatinine is 1.0 -Current serum creatinine is 1.1 -Serum creatinine admission was 1.37 -Continue to monitor and avoid nephrotoxins History of chronic anemia with iron deficiency -Hemoglobin stable -Continue home oral supplementations next-repeat CBC in a.m. 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 -Biopsy 2020 that showed melanoma with negative PET -Status post resection with skin grafting 02/10/2022 -Patient now following with dermatology DORENE -Continue home CPAP Morbid obesity -BMI 40.0 -Recommend weight loss -Complicates treatment, prognosis, outcomes DVT prophylaxis -Continue Lovenox CODE STATUS -Full code Medications at Discharge Home Medications loratadine 10 mg capsule 10 mg PO DAILY 02/13/21 ferrous sulfate 325 mg (65 mg iron) tablet 325 mg PO BID #60 tabs 11/24/22 triamterene 37.5 mg-hydrochlorothiazide 25 mg tablet 1 tab PO QAM #30 tabs 03/08/23 mecobalamin (vitamin B12) 1,000 mcg chewable tablet (B12 Active) 1,000 mcg PO DAILY 05/30/23 cephalexin 500 mg capsule 500 mg PO Q6H #28 caps 06/01/23 Hospital Course Procedures - (Lower extremity Doppler) Summary of Care Provided Minutes Spent on Discharge: 37 Hospital Course: Patient is a 37-year-old male who presented to the emergency department on 05/30/2023 with complaint of discomfort in his right groin as well as right lower extremity that started the day prior to presentation. He also had chills and fever with concurrent right lower extremity erythema which began to progressively up his right lower extremity. Tmax at home was 102.9. He also had some general malaise as well as nausea and vomiting. He does have a previous history of right lower extremity cellulitis remotely. Work-up in the emergency department demonstrated mild temperature elevation at 100, heart rate was 122, blood pressure was 129/77, respiratory rate was 24 and oxygen saturation was 100% on room air. CBC showed a leukocytosis with a white count of 19.7 and a left shift. BMP showed mildly elevated BUN and creatinine at 15 and 1.37, serum glucose of 122 and a mildly elevated lactic acid at 2.2. He was given Tylenol in the emergency department as well as Ancef and IV vancomycin. He was admitted to the medical floor where lower extremity Doppler was performed and was negative for DVT. Over the course of his treatment his fever curve did improve with his last elevated temperature being early in the morning on 05/31/2023. Since has been afebrile. His leukocytosis has resolved and normalized. His left shift has resolved. Clinically his right leg is much improved. Blood cultures are negative at 48 hours. Patient feels that he is much better and anxious to go home. We will continue antibiotic regimen with Keflex 4 times daily 500 mg for another 7 days and have asked him to follow-up with his primary care physician to be seen next week sometime for repeat evaluation. He was instructed if anything worsens to come back to the emergency department. I have asked him to keep his leg elevated until cellulitis has improved. He had this previously and this is a second episode so he does increased risk for recurrence. There did not seem to be a wound that was responsible for this event. Patient was able be discharged home in stable condition with a prescription for Keflex on 06/01/2023. Discharge diagnoses: Sepsis-resolved Right lower extremity cellulitis-improving IFTIKHAR-resolved History of chronic anemia due to iron deficiency Hypertension Chronic asthma Allergic rhinitis Melanocytic nevus DORENE Morbid obesity Physical Exam Const alert, oriented x3, no apparent distress, healthy appearing and well nourished; Negative for average body habitus Constitutional Narrative: Morbidly obese, middle-aged, white male, sitting up in bed watching television, appears comfortable, nontoxic General Appearance: cooperative, comfortable, well kempt and well developed Orientation / Consciousness: awake, oriented to person, oriented to place and oriented to time Exam Limitations: no limitations Nutritional Appearance: obese HEENT normocephalic, head/scalp atraumatic, hearing grossly normal bilaterally and moist oral mucous membranes HEENT Narrative: Mallampati 3, no thrush Eyes PERRL, EOMs intact bilaterally and conjunctivae normal Eyes Narrative: No scleral icterus Neck no lymphadenopathy, supple, no JVD and thyroid normal Neck Narrative: Trachea midline Resp normal respiratory effort, no retractions, no use of accessory muscles and clear to auscultation bilaterally Auscultation: Negative for rales, rhonchi or wheezes Cardio regular rate, regular rhythm, S1 normal heart sound, S2 normal heart sound, no murmurs, no rub, no gallops and no clicks GI normal to inspection, nondistended, normoactive bowel sounds, soft to palpation, non-tender and non-distended Extremity Extremity Narrative: Right lower extremity with much improved erythema and retraction from outlined area, erythematous areas on proximal thigh are resolved, still with some mild edema, no cyanosis or clubbing, no pain with palpation or with ambulation, left lower extremity within normal limits Skin no wounds, skin turgor normal and no jaundice Skin Narrative: As noted above Neuro oriented x3, moves all extremities, no focal motor deficits and no sensory deficits noted Sensorium / Orientation: awake and alert Speech: speech normal Psych affect normal Psych Narrative: Pleasant, appropriately interactive Weight / BMI Weight Weight: 147.8 kg Body Mass Index (BMI) 39.6 ABG / Lab / Microbiology Data 06/01/23 04:30 06/01/23 04:30 Laboratory: Laboratory Results - last 24 hr 06/01/23 04:30: WBC 6.3, RBC 4.16 L, Hgb 13.2, Hct 38.4 L, MCV 92.3, MCH 31.7, MCHC 34.4, RDW Std Deviation 43.5, RDW Coeff of Geoff 12.8, Plt Count 251, MPV 10.4, Immature Gran % (Auto) 0.300, Neut % (Auto) 66.4, Lymph % (Auto) 23.8, [place] % (Auto) 7.3, Eos % (Auto) 1.6, Baso % (Auto) 0.6, Absolute Neuts (auto) 4.2, Absolute Lymphs (auto) 1.50, Nucleated RBC % 0, Sodium 142, Potassium 3.9, Chloride 113 H, Carbon Dioxide 27.0, Anion Gap 2 L, BUN 7, Creatinine 1.03, Estim Creat Clear Calc 120.56, Est GFR (MDRD) Af Amer 104, Est GFR (MDRD) Non-Af 86, BUN/Creatinine Ratio 6.8 L, Glucose 104, Calcium 8.4 L, Vancomycin Trough 18.7 H Microbiology: Microbiology 05/29/23 03:35 Blood Culture (Wb) - Anticubital Right Blood Culture - Preliminary No growth in 48 hours. 05/29/23 03:35 Blood Culture (Wb) - Anticubital Left Blood Culture - Preliminary No growth in 48 hours. D/C Instructions Discharge Diet: No restrictions Discharge Activity: Return to Normal Activity Return to work on: 06/02/23 Meaningful Use Info Meaningful Use Diagnoses (Choose all that apply): None applicable Discharge Plan Admission Admit Date/Time: 05/30/23 02:56 Primary Reason for Your Visit: Right lower extremity cellulitis Attending Provider: Miriam Johnson Primary Care Provider: Arminda Mayen Consulting Providers: Suzi Castaneda; Gatito Chase Instructions Additional Instructions / Restrictions: Please keep right lower extremity elevated as much as possible until your cellulitis has resolved Discharge Orders/Prescriptions Prescriptions: New cephalexin 500 mg capsule 500 mg PO Q6H Qty: 28 0RF Continued triamterene-hydrochlorothiazid 37.5-25 mg tablet 1 tab PO QAM Qty: 30 1RF loratadine 10 MG capsule 10 mg PO DAILY ferrous sulfate 325 mg (65 mg iron) tablet 325 mg PO BID Qty: 60 0RF mecobalamin (vitamin B12) [B12 Active] 1,000 mcg tablet,chewable 1,000 mcg PO DAILY Referrals / Follow Up: Arminda Mayen MD [Primary Care Provider] - Within 1 Week (Call tomorrow 06/02/2023 to set up appointment to be seen next week) Disposition Disposition (needs filled in before D/C Order can be placed): Home, Self Care Charges/Coding Visit Charges Inpatient E&M: 18817 Disch Hosp >30min
--- NOTE | 2023-06-23 21:02 | PCM.RX.CS ---
Consult Labs Labs: Sodium 142 mmol/L (136-145) 06/01/23 04:30 Potassium 3.9 mmol/L (3.5-5.1) 06/01/23 04:30 Chloride 113 mmol/L (98-107) H 06/01/23 04:30 Carbon Dioxide 27.0 mmol/L (21.0-32.0) 06/01/23 04:30 Anion Gap 2 (5-15) L 06/01/23 04:30 BUN 7 mg/dL (7-18) 06/01/23 04:30 Creatinine 1.03 mg/dL (0.70-1.30) 06/01/23 04:30 Est GFR (MDRD) Af Amer 104 mL/min (>60) 06/01/23 04:30 Est GFR (MDRD) Non-Af 86 mL/min (>60) 06/01/23 04:30 BUN/Creatinine Ratio 6.8 RATIO (10-20) L 06/01/23 04:30 Glucose 104 mg/dL (74-106) 06/01/23 04:30 Vancomycin Trough 18.7 ug/mL (5.0-15.0) H 06/01/23 04:30 Microbiology Microbiology: Microbiology 05/29/23 03:35 Blood Culture (Wb) - Anticubital Right Blood Culture - Final No growth in 5 days. 05/29/23 03:35 Blood Culture (Wb) - Anticubital Left Blood Culture - Final No growth in 5 days. Pharmacy Plan for Drug Dosing Pharmacy Plan for Drug Dosing: Pharmacy Service will continue to monitor and adjust dosing as required.
== END 2023-06-01 13:33 | disposition home or self-care (01) | DRG 872 ==
LOC: ED 05-30 02:54 → PCU 05-30 04:14
PROVIDERS: Internal Medicine; Admitting Provider Family Medicine; Emergency Provider Emergency Medicine; PCP Internal Medicine; Visit Provider Internal Medicine
DX: A41.9 Sepsis, unspecified organism (principal); N17.9 Acute kidney failure, unspecified; Z68.41 Body mass index [BMI] 40.0-44.9, adult; L03.115 Cellulitis of right lower limb; C43.71 Malignant melanoma of right lower limb, including hip; E66.01 Morbid (severe) obesity due to excess calories; G47.33 Obstructive sleep apnea (adult) (pediatric); D50.9 Iron deficiency anemia, unspecified; I10 Essential (primary) hypertension; J45.909 Unspecified asthma, uncomplicated; Z79.01 Long term (current) use of anticoagulants; Z79.899 Other long term (current) drug therapy
CPT/HCPCS: 36415; 80048; 80053; 80202; 83605; 84145; 85025; 87040; 93971; 94660; 94668; 99284; J7030; J7040; J7050; A4216

== ENCOUNTER → 2023-07-21 | Outpatient (CLI) | payer OTHER, SELFPAY ==
--- NOTE | 2023-07-21 09:47 | VDLE_ITS ---
Reason For Study: BLE Pain RIGHT LEFT CFV is compressible, spontaneous, phasic, CFV is compressible, spontaneous, phasic, competent and demonstrates normal competent, and demonstrates normal augmentation. augmentation. FV is compressible, spontaneous, phasic, FV is compressible, spontaneous, phasic, competent and demonstrates normal competent and demonstrates normal augmentation. augmentation. POP V is compressible, spontaneous, phasic, POP V is compressible, spontaneous, phasic, competent and demonstrates normal competent and demonstrates normal augmentation. augmentation. T/P Trunk is compressible. T/P Trunk is compressible. PTV is compressible. PTV is compressible. RT PerV is compressible. LT PerV is compressible. SFJ is competent and measures 0.64 cm. SFJ is competent and measures 0.74 cm. GSV proximal thigh measures 0.59 x 0.62 cm. GSV proximal thigh measures 0.44 x 0.43 cm. GSV at knee measures 0.49 x 0.52 cm. GSV at knee measures 0.37 x 0.37 cm. GSV is competent throughout. GSV is competent throughout. SSV proximal calf is competent and measures SSV proximal calf is competent and measures 0.32 x 0.36 cm. 0.29 x 0.34 cm. Procedure This is a venous duplex using B-mode, color flow and spectral Doppler. Exam performed in department. The exam was diagnostic. VL/Venous Duplex US - Malick Extrem Interpretation Summary Deep veins of the bilateral lower extremities are patent and compressible segme ntally. There is no evidence of bilateral lower extremity deep vein thrombosis. The bilateral great saphenous vein appears patent and compressible segmentally. Ordering Physician: Elzbieta Andino Referring Physician: Arminda Mayen Performed By: Dashawn Haywood RVT
== END | disposition home or self-care (01) ==
PROVIDERS: PCP Internal Medicine; Referring Provider Surgery Trauma Surgery; Visit Provider Surgery Trauma Surgery
DX: I87.2 Venous insufficiency (chronic) (peripheral) (principal); R22.41 Localized swelling, mass and lump, right lower limb
CPT/HCPCS: 93970

== ENCOUNTER → 2023-10-11 | Outpatient (CLI) | payer OTHER, SELFPAY ==
[2023-10-11 12:16] LABS: Absolute Lymphocyte Count 1.67 X10^3/uL (0.83-4.51); Absolute Neutrophil Count 3.2 X10^3/uL (2.0-7.7); Basophil# 0.04 X10^3/uL; Basophil% 0.7 % (0-1); Eosinophils% 1.8 % (0-5); Hematocrit 43.9 % (40-54); Hemoglobin 14.9 g/dL (13.0-16.5); Lymphocyte # 1.67 X10^3/ul (0.83-4.51); Lymphocyte % 30.8 % (19-41); Mean Corp Hgb Conc 33.9 g/dL (32-36); Mean Corpuscular Volume 91.5 fL (80-94); Mean Platelet Vol. 10.3 fl (6.2-12.0); Monocyte% 7.4 % (0-10); NRBC Flagged by Analyzer 0 % (0-5); Neutrophil # 3.21 X10^3/uL (2.7-7.7); Neutrophil % 59.1 % (47-70); Platelet Count 385 K/mm3 (150-450); RBC Distribution Width CV 12.2 % (11.6-14.6); RBC Distribution Width SD 40.5 fl (35.1-43.9); White Blood Count 5.4 K/mm3 (4.4-11.0)
[2023-10-11 12:32] LABS: Anion Gap 5 (5-15); BUN 11 mg/dL (7-18); BUN/Creat Ratio 10.1 RATIO (10-20); Chloride 107 mmol/L (98-107); Creatinine, Serum 1.09 mg/dL (0.70-1.30); EST Glomerular Filtration Rate 81 mL/min (>60); Est Glom Filt Rate - Afr Amer 97 mL/min (>60); Glucose 89 mg/dL (74-106); Potassium 4.2 mmol/L (3.5-5.1); Sodium Level 141 mmol/L (136-145)
== END | disposition home or self-care (01) ==
LOC: BIMLAB 09:21
PROVIDERS: PCP Internal Medicine; Referring Provider Internal Medicine; Visit Provider Internal Medicine
DX: D64.9 Anemia, unspecified (principal); I10 Essential (primary) hypertension
CPT/HCPCS: 36415; 80048; 85025

== ENCOUNTER 2023-11-16 09:33 | Observation (INO) | payer OTHER, SELFPAY ==
[2023-11-16] VITALS (10 sets, daily range): BP systolic 111–145; BP diastolic 64–93; PULSE 74–111; RESP 16–18; TEMP 36.6–37.4; O2SAT 94–98; BMI 39.4; BMI 39.2
--- NOTE | 2023-11-16 09:41 | ED.VIS.GI ---
HPI HPI - GI History of Present Illness Chief Complaint: Abd Pain Informant: patient Abdominal Pain/Flank Pain Onset: Today Context: Sudden Onset Timing: Continuous Quality: Sharp and Stabbing Location: Epigastric and RLQ Worsened by: Movement and - (Deep breathing, pressure, and leaning on his right side) Relieved by: Nothing Nausea/Vomiting/Emesis GI Symptom: Positive for Nausea; Negative for Vomiting Diarrhea/Melena/Hematochezia GI Symptom: Negative for Diarrhea, Melena or Hematochezia Associated Symptoms Associated Symptoms: Negative for Dysuria, Frequency or Hematuria Narrative Narrative: Patient presents with abdominal pain that began today. Patient states it began over the epigastric area but has since moved to the right lower abdomen. Patient describes it as sharp and stabbing. Patient states it is worse with deep breathing, pressure, and leaning on his right side. Patient states nothing seems to help with it. Patient admits to some nausea but denies any vomiting. Patient does state he is hungry but just does not want to eat because he fears that the pain would get worse if he ate. Patient denies any diarrhea, melena, or hematochezia. Patient denies any dysuria, frequency, or hematuria. [facility] Medical History Asthma Congenital absence of left kidney Diarrhea Discoloration of skin Elevated random blood glucose level Fatty infiltration of liver Gallstones Hypersomnolence Hypertension (Unknown) TARAS (iron deficiency anemia) Localized swelling of right foot Melanoma Obesity (BMI 30-39.9) DORENE (obstructive sleep apnea) Rash Shortness of breath Shoulder pain Sleep apnea Venous insufficiency of both lower extremities Home Medications loratadine 10 mg capsule 10 mg PO DAILY ALLERGIES 02/13/21 [History Last Taken Unknown] triamterene 37.5 mg-hydrochlorothiazide 25 mg tablet 1 tab PO QAM BLOOD PRESSURE #90 tabs 07/09/23 [Rx Last Taken Unknown] valsartan 80 mg tablet 80 mg PO DAILY BLOOD PRESSURE #90 tabs 07/09/23 [Rx Last Taken Unknown] Allergy/AdvReac Type Severity Reaction Status Date / Time shellfish derived Allergy Severe Nausea/Vom/ Verified 10/11/23 08:40 Diarrhea Family History Mother Asthma Cancer basal cell Surgical History History of cholecystectomy History of hernia repair History of wisdom tooth extraction Hx of foot surgery Social History household members: spouse Smoking Status: Never smoker alcohol intake: never substance use type: does not use what type of physical activity do you participate in: bicycling frequency: 1-2 times per week ROS ROS ED Constitutional Constitutional ED: Denies chills or fever(s) Eyes Eyes: Denies blurry vision or change in vision ENT ENT ED: Denies rhinorrhea or sore throat Cardiovascular Cardiovascular: Denies chest pain or palpitations Respiratory/Chest Respiratory/Chest: Denies cough or dyspnea Gastrointestinal Gastrointestinal: Reports abdominal pain and nausea; Denies diarrhea, melena or vomiting Genitourinary Genitourinary ED: Denies dysuria or hematuria Musculoskeletal Musculoskeletal: Denies back pain or neck pain Integumentary Denies abscess or rash Neurologic Neurologic: Denies headache(s) or weakness Allergic/Immunologic Allergic/Immunologic ED: Denies mouth swelling or urticaria EXAM Physical Exam Const Vital Signs: 11/16/23 09:33 Temperature 97.8 F Temperature Source Temporal Pulse Rate 107 H Respiratory Rate 16 Blood Pressure 139/93 H Blood Pressure Mean 108 Pulse Ox 98 Oxygen Delivery Method Room Air Positive well nourished, well developed and obese General Appearance ED: well developed and NAD Nutritional Appearance: obese HEENT Reports moist mucous membranes Neck supple and no JVD Resp normal respiratory effort and clear to auscultation bilaterally Cardio regular rate and regular rhythm GI non-distended Palpation: soft and tender RLQ and RUQ; Negative for guarding or rebound tenderness present Extremity full ROM Neuro CN's II-XII intact bilaterally, moves all extremities and no sensory deficits noted Sensorium / Orientation: alert Motor Exam: strength 5/5 throughout Psych mental status grossly normal MDM MDM MDM Narrative Medical decision making narrative: Differential diagnosis includes appendicitis, bowel obstruction, perforation, pancreatitis, gastroenteritis, urinary tract infection, ureteral calculus, and mesenteric adenitis. CT scan of the abdomen and pelvis will be obtained to assess for appendicitis, bowel obstruction, and perforation. CBC will be obtained to assess for leukocytosis and anemia. Comprehensive metabolic profile will be obtained to assess for hepatic function, renal function, and electrolyte abnormality. Lipase will be obtained to assess for pancreatitis. Urinalysis will be obtained to assess for urinary tract infection and hematuria. Lab Data Attestation: I reviewed the patient's lab results. Lab results narrative: CBC was reviewed. There is a mild leukocytosis of 13.3. The remainder is within normal limits. Comprehensive metabolic profile was reviewed and was essentially within normal limits. Lipase was reviewed and was normal at 28. Urinalysis was reviewed. There is no evidence of urinary tract infection or hematuria. Labs: Laboratory Results - last 24 hr 11/16/23 11/16/23 10:15 11:55 WBC 13.3 H RBC 4.67 Hgb 14.4 Hct 41.8 MCV 89.5 MCH 30.8 MCHC 34.4 RDW Std Deviation 39.8 RDW Coeff of Geoff 12.2 Plt Count 367 MPV 10.1 Immature Gran % (Auto) 0.400 Neut % (Auto) 85.6 H Lymph % (Auto) 9.2 L [place] % (Auto) 4.5 Eos % (Auto) 0.1 Baso % (Auto) 0.2 Absolute Neuts (auto) 11.4 H Absolute Lymphs (auto) 1.22 Nucleated RBC % 0 Sodium 139 Potassium 3.8 Chloride 108 H Carbon Dioxide 26.0 Anion Gap 5 BUN 10 Creatinine 1.07 Estim Creat Clear Calc 114.92 Est GFR (MDRD) Af Amer 99 Est GFR (MDRD) Non-Af 82 BUN/Creatinine Ratio 9.3 L Glucose 115 H Calcium 8.9 Total Bilirubin 0.70 AST 19 ALT 51 Alkaline Phosphatase 70 Total Protein 7.3 Albumin 3.8 Globulin 3.5 Albumin/Globulin Ratio 1.1 Lipase 28 Urine Color Straw Urine Clarity Clear Urine pH 6.5 Ur Specific [place] 1.010 Urine Protein Negative Urine Glucose (UA) Normal Urine Ketones Negative Urine Occult Blood Negative Urine Nitrite Negative Urine Bilirubin Negative Urine Urobilinogen Normal Ur Leukocyte Esterase Negative Urine RBC 0 SEEN Urine WBC 0 SEEN Ur Squamous Epith Cells 0-5 SEEN Urine Bacteria 0 SEEN Urine Mucus 0 SEEN Radiography Diagnostic Testing: Clinical Impression(s) from Imaging Studies Abdomen/Pelvis CT 11/16/23 09:57 IMPRESSION: 1. Thickening of the appendix with periappendiceal stranding consistent with acute appendicitis. 2. Hepatic steatosis, mild splenomegaly with collateral veins in the splenic hilum which may reflect portal venous hypertension. Electronically Signed: Jr Nation MD at 12:14 EST , ADDENDUM: 11/16/23 1224 IMPRESSION: 1. Thickening of the appendix with periappendiceal stranding consistent with acute appendicitis. 2. Hepatic steatosis, mild splenomegaly with collateral veins in the splenic hilum which may reflect portal venous hypertension. N.B. : The above Results were Read Back by Jr Nation MD to Antonio Ferguson DO, and understanding confirmed on 11/16/2023 12:17:16 (ET). Electronically Signed: Jr Nation MD at 12:14 EST , CT scan of the abdomen pelvis was obtained. There is thickening of the appendix with periappendiceal stranding consistent with acute appendicitis. There is hepatic steatosis and mild splenomegaly. This was interpreted by the radiologist was also independently reviewed by myself. EKG Initial EKG: Attestation: I personally reviewed and interpreted this EKG as follows: Interpretation: Sinus Rhythm (91) and No Acute Injury Pattern Comments: EKG was obtained. On my independent interpretation, it showed a normal sinus rhythm with a rate of 91. OR interval, QRS interval, and QTc intervals were all normal. [place] was normal. There are no acute ST or T wave changes. Prior EKG tracings: available for review Prior: Unchanged (02/15/2021) Treatment and Re-Evaluation :: Patient was given IV fluids, morphine, and Zofran. Patient was started on Zosyn. Patient was advised of his findings. Case was discussed with Dr. Nicolas from general surgery. He will be in to evaluate the patient and likely take the patient to the operating room. Patient understands and is agreeable with the plan. All questions were answered. Discharge Plan Dx/Rx/DC Orders Clinical Impression: Abdominal pain, Acute appendicitis Disposition Disposition: [facility]
--- NOTE | 2023-11-16 09:57 | CT_ITS ---
We are attempting to reach an attending provider to discuss findings. An addendum with communication details will be sent when the communication is complete. STUDY: CT ABDOMEN AND PELVIS WITH CONTRAST REASON FOR EXAM: Male, 38 years old. Abdominal pain -- IV PO Contrast RADIATION DOSAGE (If Supplied By Facility): CTDIvol = ( 15.39 ) mGy, DLP = ( 1429.16 ) mGycm TECHNIQUE: Oral and amp; IV Gastrografin and amp; 100mL Isovue-300 was administered. Transaxial images were obtained from the dome of the diaphragm to the symphysis pubis. Multiplanar coronal and sagittal images were reformatted. Individualized Dose Optimization Techniques Were Used For This CT. COMPARISON: No relevant prior comparison study available FINDINGS: The visualized lung bases are unremarkable. The visualized portions of the heart are within normal limits. Diffuse hepatic steatosis. There are surgical clips in the gallbladder fossa consistent with a prior cholecystectomy. Mild splenomegaly. Varices in the splenic hilum. Normal pancreas. Normal bilateral adrenal glands. Unremarkable right kidney. No evidence of hydronephrosis. Surgical clips in the right kidney. Absent left kidney. Normal visualized stomach. Normal in caliber small bowel loops. No evidence of acute diverticulitis. There is a tubular, thick-walled appendix (>7mm), consistent with acute appendicitis. Normal abdominal aorta. No retroperitoneal adenopathy. Normal urinary bladder. Surgical clips in the right groin region likely from previous hernia repair. Mild narrowing of L4-L5 disc space. CT/Abdomen/Pelvis WITH Contrast IMPRESSION: 1. Thickening of the appendix with periappendiceal stranding consistent with acute appendicitis. 2. Hepatic steatosis, mild splenomegaly with collateral veins in the splenic hilum which may reflect portal venous hypertension. Electronically Signed: rJ Natoin MD at 12:14 EST ,
[2023-11-16] MEDS: Ondansetron 4 MG/2 ML Vial IV (10:26)
[2023-11-16] MEDS: 0.9% Normal Saline (1000mL) 1,000 ML 1000 ML IV (10:26)
[2023-11-16 10:27] LABS: Absolute Lymphocyte Count 1.22 X10^3/uL (0.83-4.51); Absolute Neutrophil Count 11.4 X10^3/uL (2.0-7.7); Basophil# 0.03 X10^3/uL; Basophil% 0.2 % (0-1); Eosinophil# 0.01 X10^3/uL; Eosinophils% 0.1 % (0-5); Hematocrit 41.8 % (40-54); Hemoglobin 14.4 g/dL (13.0-16.5); Lymphocyte # 1.22 X10^3/ul (0.83-4.51); Lymphocyte % 9.2 % (19-41); Mean Corp Hgb Conc 34.4 g/dL (32-36); Mean Corpuscular Hgb 30.8 pg (27.0-32.0); Mean Corpuscular Volume 89.5 fL (80-94); Mean Platelet Vol. 10.1 fl (6.2-12.0); Monocyte% 4.5 % (0-10); NRBC Flagged by Analyzer 0 % (0-5); Neutrophil # 11.39 X10^3/uL (2.7-7.7); Neutrophil % 85.6 % (47-70); Platelet Count 367 K/mm3 (150-450); RBC Distribution Width CV 12.2 % (11.6-14.6); RBC Distribution Width SD 39.8 fl (35.1-43.9); Red Blood Count 4.67 M/mm3 (4.6-6.2); White Blood Count 13.3 K/mm3 (4.4-11.0)
[2023-11-16 10:42] LABS: ALB/GLOB Ratio 1.1 RATIO (0.9-2.4); AST(SGOT) 19 U/L (15-37); Alanine Aminotransfer ALT/SGPT 51 U/L (16-61); Albumin, Serum 3.8 g/dL (3.2-5.0); Alkaline Phosphatase 70 U/L (45-117); Anion Gap 5 (5-15); BUN 10 mg/dL (7-18); BUN/Creat Ratio 9.3 RATIO (10-20); Calcium,Total 8.9 mg/dL (8.5-10.1); Chloride 108 mmol/L (98-107); Creatinine, Serum 1.07 mg/dL (0.70-1.30); EST Glomerular Filtration Rate 82 mL/min (>60); Est Glom Filt Rate - Afr Amer 99 mL/min (>60); Estimated Creatinine Clearance 114.92 ml/min; Globulin 3.5 g/dL (2.2-4.2); Glucose 115 mg/dL (74-106); Lipase 28 U/L (13-75); Potassium 3.8 mmol/L (3.5-5.1); Protein, Total 7.3 g/dL (6.4-8.2); Sodium Level 139 mmol/L (136-145)
[2023-11-16 12:04] LABS: Bacteria 0 SEEN /hpf (None Seen); Mucous, Urine 0 SEEN /hpf (<or=2+); Red Blood Cells-Urine 0 SEEN /hpf (0-5); White Blood Cells 0 SEEN /hpf (0-5)
[2023-11-16 12:08] LABS: Color, Urine Straw (Yellow); Glucose, Dipstick Normal (Normal); Ketone-Dipstick Negative (Negative); Leukocyte Esterase-Dipstick Negative /ul (Negative); Nitrite-Dipstick Negative (Negative); Occult Blood-Urine Negative /ul (Negative); Protein-Dipstick Negative (Negative); Urine Bilirubin Dipstick Negative (Negative); Urine Clarity Clear (Clear); Urine Urobilinogen Normal (Normal); Urine pH 6.5 (5.0 - 8.0)
[2023-11-16 12:14] LABS: Squamous Epithelial Cells - UA 0-5 SEEN /hpf (0-5)
[2023-11-16] MEDS: Piperacil/Tazobactam 4.5 GM in 0.9% Normal Saline (100mL MB+) 100 ML IV (12:43)
[2023-11-16] MEDS: Morphine 4 MG/ML Syringe IV (12:43)
--- NOTE | 2023-11-16 13:14 | EKG12_ITS ---
Test Reason : PREOP Blood Pressure : / mmHG Vent. Rate : 091 BPM Atrial Rate : 091 BPM P-R Int : 166 ms QRS Dur : 082 ms QT Int : 346 ms P-R-T Axes : 048 025 029 degrees QTc Int : 425 ms Normal sinus rhythm Normal ECG Confirmed by CONY MONTESINOS, MARY ([id number]), marketing editor ABRAHAM URRUTIA ([id number]) on 11/17/2023 5:58:01 AM Referred By: Confirmed By:MARY DONNELLY MD
--- NOTE | 2023-11-16 13:16 | PCM.HP.STD ---
HPI - General General Date of Admission: 11/16/23 Date of Service: 11/16/23 Chief Complaint: Abdominal pain HPI Narrative JUDY DIOP, is a 38 M who presents with 1 day history of abdominal pain which started at 0300 AM. He noted the pain started in his epigastric region. He thought this was gas and waited until 0600 AM when [employer] opened and purchased some gas-x. He noted the pain continued even after taking the gas-x medication and the pain moved to the right lower quadrant. Patient also noted associated nausea. He denies vomiting, fever, lack of appetite. He notes having normal stools. He denies being around any sick contacts. Patient notes a history of hypertension and asthma. He is on medication for high blood pressure and had asthma as a child. No recent history of an asthma attack. Patient has recently had multiple surgeries this year. Patient notes an ERCP and laparoscopic cholecystectomy earlier this year at [facility] and more recently an excision of a cancerous skin lesion from the bottom of hiss foot followed by a skin graft placement. A CT scan of the ab/pel was obtained demonstrating IMPRESSION: 1. Thickening of the appendix with periappendiceal stranding consistent with acute appendicitis. 2. Hepatic steatosis, mild splenomegaly with collateral veins in the splenic hilum which may reflect portal venous hypertension. WBC 13.3 with left shift. [facility] Medical History Asthma Congenital absence of left kidney Diarrhea Discoloration of skin Elevated random blood glucose level Fatty infiltration of liver Gallstones Hypersomnolence Hypertension (Unknown) TARAS (iron deficiency anemia) Localized swelling of right foot Melanoma Obesity (BMI 30-39.9) DORENE (obstructive sleep apnea) Rash Shortness of breath Shoulder pain Sleep apnea Venous insufficiency of both lower extremities Home Medications loratadine 10 mg capsule 10 mg PO DAILY ALLERGIES 02/13/21 [History Last Taken Unknown] triamterene 37.5 mg-hydrochlorothiazide 25 mg tablet 1 tab PO QAM BLOOD PRESSURE #90 tabs 07/09/23 [Rx Last Taken Unknown] valsartan 80 mg tablet 80 mg PO DAILY BLOOD PRESSURE #90 tabs 07/09/23 [Rx Last Taken Unknown] Allergy/AdvReac Type Severity Reaction Status Date / Time shellfish derived Allergy Severe Nausea/Vom/ Verified 10/11/23 08:40 Diarrhea Family History Mother Asthma Cancer basal cell Surgical History History of cholecystectomy History of hernia repair History of wisdom tooth extraction Hx of foot surgery Social History household members: spouse Smoking Status: Never smoker alcohol intake: never substance use type: does not use what type of physical activity do you participate in: bicycling frequency: 1-2 times per week ROS Constitutional Constitutional: Reports systems reviewed and no addt'l complaints, except as documented Eyes Eyes: Reports systems reviewed and no addt'l complaints, except as documented ENT HEENT: Reports systems reviewed and no addt'l complaints, except as documented Cardiovascular Cardiovascular: Reports systems reviewed and no addt'l complaints, except as documented Respiratory/Chest Respiratory/Chest: Reports systems reviewed and no addt'l complaints, except as documented Gastrointestinal Gastrointestinal: Reports systems reviewed and no addt'l complaints, except as documented Genitourinary Genitourinary: Reports systems reviewed and no addt'l complaints, except as documented Musculoskeletal Musculoskeletal: Reports systems reviewed and no addt'l complaints, except as documented Integumentary Integumentary: Reports systems reviewed and no addt'l complaints, except as documented Neurologic Neurologic: Reports systems reviewed and no addt'l complaints, except as documented Psychiatric Psychiatric: Reports systems reviewed and no addt'l complaints, except as documented Endocrine Endocrinology: Reports systems reviewed and no addt'l complaints, except as documented Hematologic/Lymphatic Hematologic/Lymphatic: Reports systems reviewed and no addt'l complaints, except as documented Allergic/Immunologic Allergic/Immunologic: Reports systems reviewed and no addt'l complaints, except as documented Vital Signs Vital Signs Vital Signs: 11/16/23 09:33 Temperature 97.8 F Temperature Source Temporal Pulse Rate 107 H Respiratory Rate 16 Blood Pressure 139/93 H Blood Pressure Mean 108 Pulse Ox 98 Oxygen Delivery Method Room Air Weight Weight: 324 lb 3.2 oz Body Mass Index (BMI) 39.4 Physical Exam Const alert, oriented x3 and no apparent distress HEENT normocephalic and head/scalp atraumatic Eyes PERRL and EOMs intact bilaterally Neck full ROM Lymph Lymphatic: no lymphadenopathy noted Chest inspection of chest normal Resp normal respiratory effort and clear to auscultation bilaterally Cardio regular rate and regular rhythm GI GI Narrative: Abdomen- central obesity, soft, tenderness in the right lower quadrant with palpation, hypoactive bowel sounds. Positive McBurney's point and psoas sign. Negative Obturator sign. Nicely healed inferior umbilical incision. no CVA tenderness Back/Spine no CVA tenderness Extremity normal to inspection Skin no rashes or lesions noted Neuro no focal motor deficits and no sensory deficits noted Psych mental status grossly normal and thought process normal Results Lab / Micro Data 11/16/23 10:15 11/16/23 10:15 Labs: Laboratory Results - last 24 hr 11/16/23 10:15: WBC 13.3 H, RBC 4.67, Hgb 14.4, Hct 41.8, MCV 89.5, MCH 30.8, MCHC 34.4, RDW Std Deviation 39.8, RDW Coeff of Geoff 12.2, Plt Count 367, MPV 10.1, Immature Gran % (Auto) 0.400, Neut % (Auto) 85.6 H, Lymph % (Auto) 9.2 L, [place] % (Auto) 4.5, Eos % (Auto) 0.1, Baso % (Auto) 0.2, Absolute Neuts (auto) 11.4 H, Absolute Lymphs (auto) 1.22, Nucleated RBC % 0, Sodium 139, Potassium 3.8, Chloride 108 H, Carbon Dioxide 26.0, Anion Gap 5, BUN 10, Creatinine 1.07, Estim Creat Clear Calc 114.92, Est GFR (MDRD) Af Amer 99, Est GFR (MDRD) Non-Af 82, BUN/Creatinine Ratio 9.3 L, Glucose 115 H, Calcium 8.9, Total Bilirubin 0.70, AST 19, ALT 51, Alkaline Phosphatase 70, Total Protein 7.3, Albumin 3.8, Globulin 3.5, Albumin/Globulin Ratio 1.1, Lipase 28 11/16/23 11:55: Urine Color Straw, Urine Clarity Clear, Urine pH 6.5, Ur Specific [place] 1.010, Urine Protein Negative, Urine Glucose (UA) Normal, Urine Ketones Negative, Urine Occult Blood Negative, Urine Nitrite Negative, Urine Bilirubin Negative, Urine Urobilinogen Normal, Ur Leukocyte Esterase Negative, Urine RBC 0 SEEN, Urine WBC 0 SEEN, Ur Squamous Epith Cells 0-5 SEEN, Urine Bacteria 0 SEEN, Urine Mucus 0 SEEN Imagaing Radiology Impression Abdomen/Pelvis CT 11/16/23 09:57 IMPRESSION: 1. Thickening of the appendix with periappendiceal stranding consistent with acute appendicitis. 2. Hepatic steatosis, mild splenomegaly with collateral veins in the splenic hilum which may reflect portal venous hypertension. Electronically Signed: Jr Nation MD at 12:14 EST , ADDENDUM: 11/16/23 1224 IMPRESSION: 1. Thickening of the appendix with periappendiceal stranding consistent with acute appendicitis. 2. Hepatic steatosis, mild splenomegaly with collateral veins in the splenic hilum which may reflect portal venous hypertension. N.B. : The above Results were Read Back by Jr Nation MD to Antonio Ferguson DO, and understanding confirmed on 11/16/2023 12:17:16 (ET). Electronically Signed: Jr Nation MD at 12:14 EST , Assessment & Plan Assessment/Plan (1) Acute appendicitis: QUALIFIERS: Acute appendicitis type: with localized peritonitis Appendicitis gangrene presence: unspecified whether gangrene present Appendicitis perforation presence: unspecified whether perforation present Appendicitis abscess presence: without abscess Qualified Code(s): K35.30 - Acute appendicitis with localized peritonitis, without perforation or gangrene PLAN: I am seeing this patient in conjunction with Dr. Nicolas. CT scan of the ab/pel is demonstrating acute appendicitis. Patient has an elevated white count with a left shift. Dr. Nicolas will plan to perform a laparoscopic appendectomy. Procedure details, risks and benefits have been explained. Plan to admit patient to med/surg floor for observation, STAT EKG pre-op, patient has had a dose of Zosyn in the ED. Plan to send Ancef with the patient to the OR. Patient and his spouse have had the opportunity to ask and have questions answered. Patient verbally understands and agrees with the plan. Thank you for allowing us to participate in this patient's care. Charges/Coding Visit Charges OBSV E&M: 73113 Observ/hosp same date L2
[2023-11-16] MEDS: 0.9% Normal Saline (1000mL) 1,000 ML 75 ML IV ×2 (14:43→21:49)
[2023-11-16] MEDS: Cefazolin 3 GM in 0.9% Normal Saline (100mL Bag) 100 ML IV (19:00)
[2023-11-16] MEDS: Bupivacaine 0.5% PF 10 ML VIAL ×2 (19:52→19:53)
--- NOTE | 2023-11-16 20:36 | PCM.OPRPT ---
Report of Operation Date of Procedure: 11/16/23 Pre-Operative Diagnosis: Acute appendicitis Post-Operative Diagnosis: Acute uncomplicated appendicitis Surgery/Procedure Performed:: Laparoscopic appendectomy Description of Surgical Findings:: ? Evidence of acutely inflamed appendix without perforation and so adjacent serous fluid ? Evidence of recurrence of umbilical hernia Surgeon: Suresh Nicolas waste water or water plant operator: Becca Winkler Type of Anesthesia: General/Supplemental Anesthesiologist: Antonio Skinner Specimen's removed: Appendix Estimated Blood Loss (mL): 3 Description of Procedure: After appropriate identification in the preoperative holding area, the patient was brought to the operating room and placed supine on the operating room table. Antibiotics had been preoperatively administered. Patient was then induced with general endotracheal anesthetic. The abdomen was prepped and draped in usual sterile fashion. Formal timeout was conducted to confirm both the patient and the procedure. A supraumbilical incision was made and carried down to the level of the fascia which was sharply opened. After opening the peritoneum in like fashion a finger sweep was made to confirm position, and a balloon trocar was placed and pneumoperitoneum was established to 15 mmHg. Unfortunately after the laparoscope was introduced we found ourselves underneath the omentum and I did do see that patient had some adherent omentum from prior umbilical hernia repair so I performed a wider finger sweep and this time dislodged that adherent omentum and in the process also uncovered patient's recurrent umbilical hernia inferiorly. With these adhesions out of the way the Elizabeth trocar was replaced as well as the laparoscope. Patient was positioned in Trendelenburg with the left side down. 2 additional 5 mm trocars were placed in the left lower quadrant and suprapubic positions. The peritoneum was inspected and there were no signs of inadvertent injury from this Elizabeth entry. The appendix was visualized with mild acute inflammation. It was difficult to grasp due to inflammatory contracture, but using blunt laparoscopic dissection, a window was made in the mesoappendix adjacent to the appendiceal base. The mesoappendix was divided with application of a laparoscopic harmonic. Then the base of the appendix was sealed and amputated with the use of an Endo IBETH stapler. The appendix was placed in an Endo Catch bag. The staple line was inspected for hemostasis. After hemostasis was confirmed the appendix was removed from the umbilical port site. Pneumoperitoneum was then evacuated and the supraumbilical port site fascia was closed with #1 Vicryl in a [id number] fashion. The port sites were infiltrated with [number] mL local anesthetic. The skin of each port site was closed with 4-0 Monocryl in a subcuticular fashion. Steri-Strips and OpSite dressings were applied. Patient tolerated procedure well without any apparent complications. They were awoken from general anesthetic without issue and transferred to post anesthesia care unit for ongoing recovery. Admit VTE Documentation VTE Mechan Device Prophylaxis: SCD's Procedures Digestive 40xxx-49xxx: 78882 Laparoscopy appendectomy
[2023-11-16] MEDS: Acetaminophen 325 MG Tablet 650 MG PO (21:37)
[2023-11-16] MEDS: oxyCODONE 5 MG Tablet PO (21:37)
--- NOTE | 2023-11-17 | APP_PTH ---
PATHOLOGY RESULTS PATIENT: JUDY DIOP LOC: MS3 U#:[id number] AGE/SX: 38/M ROOM: AZ313 RE11/16/[address]: Dr. Suresh Nicolas MD : 1985 BED: 1 DIS: 11/17/2023 SPEC #: [id number] RECD: 11/17/23 13:53 STATUS: BRANDON MIRZA #: [id number] MUSA: 11/17/23 00:[address]: Suresh Nicolas DEPT: SURGICAL PATHOLOGY RECD BY: Fredo Lindquist ENTERED: 11/17/23 13:53 SP TYPE: APPENDIX OTHR DR: Dr. Arminda Mayen MD Tissues: Appendix, NOS Procedures: Surgery Specimen Level III HEADER OPERATION: Laparoscopic appendectomy PRE-OP DIAGNOSIS: Acute appendicitis TISSUE SUBMITTED: Appendix MICROSCOPIC DIAGNOSIS Appendix, appendectomy: Acute necrotizing appendicitis. Acute serositis. AM:letty 11/18/2023 MICROSCOPIC DESCRIPTION Slides are reviewed. GROSS DESCRIPTION Received in fixative is one container labeled with the patient's name and designated appendix. The specimen consists of an appendix measuring 7.0 cm in length and up to 0.8 cm in diameter. The attached periappendiceal adipose tissue measures up to 2.0 cm in width. The serosa is congested. No obvious perforation is identified. The lumen contains hemorrhagic material. No fecalith is identified. Field Reimbursement Manager sections are submitted in one cassette. / SJ:rg 11/17/2023 TC:2 CPT: 80424
[2023-11-17 02:27] VITALS: BP 125/72; PULSE 102; RESP 18; TEMP 37.1; O2SAT 98
[2023-11-17 03:58] LABS: Absolute Lymphocyte Count 1.11 X10^3/uL (0.83-4.51); Absolute Neutrophil Count 5.6 X10^3/uL (2.0-7.7); Basophil# 0.02 X10^3/uL; Basophil% 0.3 % (0-1); Eosinophil# 0.04 X10^3/uL; Eosinophils% 0.5 % (0-5); Hematocrit 37.2 % (40-54); Hemoglobin 12.6 g/dL (13.0-16.5); Lymphocyte # 1.11 X10^3/ul (0.83-4.51); Lymphocyte % 15.2 % (19-41); Mean Corp Hgb Conc 33.9 g/dL (32-36); Mean Corpuscular Hgb 31.4 pg (27.0-32.0); Mean Corpuscular Volume 92.8 fL (80-94); Monocyte# 0.52 X10^3/uL; Monocyte% 7.1 % (0-10); NRBC Flagged by Analyzer 0 % (0-5); Neutrophil # 5.57 X10^3/uL (2.7-7.7); Neutrophil % 76.6 % (47-70); Platelet Count 319 K/mm3 (150-450); RBC Distribution Width CV 12.5 % (11.6-14.6); RBC Distribution Width SD 42.5 fl (35.1-43.9); Red Blood Count 4.01 M/mm3 (4.6-6.2); White Blood Count 7.3 K/mm3 (4.4-11.0)
[2023-11-17 04:11] LABS: Anion Gap 7 (5-15); BUN 8 mg/dL (7-18); BUN/Creat Ratio 8.2 RATIO (10-20); Calcium,Total 7.6 mg/dL (8.5-10.1); Chloride 109 mmol/L (98-107); Creatinine, Serum 0.98 mg/dL (0.70-1.30); EST Glomerular Filtration Rate 91 mL/min (>60); Est Glom Filt Rate - Afr Amer 110 mL/min (>60); Estimated Creatinine Clearance 125.48 ml/min; Glucose 132 mg/dL (74-106); Potassium 3.9 mmol/L (3.5-5.1); Sodium Level 142 mmol/L (136-145)
[2023-11-17 05:58] VITALS: BP 134/82; PULSE 90; RESP 18; TEMP 37.2; O2SAT 90
[2023-11-17] MEDS: oxyCODONE 5 MG Tablet PO (06:07)
[2023-11-17] MEDS: Acetaminophen 325 MG Tablet 650 MG PO (06:07)
[2023-11-17 06:25] VITALS: O2SAT 97
--- NOTE | 2023-11-17 08:33 | PCM.PN.SRG ---
Subjective Subjective Patient evaluated resting comfortably in bed. He notes minimal amount of incisional pain/discomfort. He denies nausea, vomiting, fever. He notes his RUQ pain is completely gone. He feels hungry. Objective Data Objective Data Vital Signs: Vital Signs Temp Pulse Resp BP Pulse Ox O2 Del Method O2 Flow Rate 99.0 F 90 18 134/82 H 97 Room Air 2 11/17/23 05:58 11/17/23 05:58 11/17/23 05:58 11/17/23 05:58 11/17/23 06:25 11/17/23 06:25 11/17/23 05:58 Oxygen Flow Rate (L/min) 2 Oxygen Delivery Method Room Air Weight: 322 lb 6 oz Body Mass Index (BMI) 39.2 Intake & Output: Intake and Output for Last 24 Hours 11/15/23 11/16/23 11/17/23 23:59 23:59 23:59 Intake Total 2147.5 / 2147.5 600 / 600 Balance 2147.5 / 2147.5 600 / 600 Lab / Micro Data 11/17/23 03:20 11/17/23 03:20 Labs: Laboratory Results - last 24 hr 11/16/23 10:15: WBC 13.3 H, RBC 4.67, Hgb 14.4, Hct 41.8, MCV 89.5, MCH 30.8, MCHC 34.4, RDW Std Deviation 39.8, RDW Coeff of Geoff 12.2, Plt Count 367, MPV 10.1, Immature Gran % (Auto) 0.400, Neut % (Auto) 85.6 H, Lymph % (Auto) 9.2 L, [place] % (Auto) 4.5, Eos % (Auto) 0.1, Baso % (Auto) 0.2, Absolute Neuts (auto) 11.4 H, Absolute Lymphs (auto) 1.22, Nucleated RBC % 0, Sodium 139, Potassium 3.8, Chloride 108 H, Carbon Dioxide 26.0, Anion Gap 5, BUN 10, Creatinine 1.07, Estim Creat Clear Calc 114.92, Est GFR (MDRD) Af Amer 99, Est GFR (MDRD) Non-Af 82, BUN/Creatinine Ratio 9.3 L, Glucose 115 H, Calcium 8.9, Total Bilirubin 0.70, AST 19, ALT 51, Alkaline Phosphatase 70, Total Protein 7.3, Albumin 3.8, Globulin 3.5, Albumin/Globulin Ratio 1.1, Lipase 28 11/16/23 11:55: Urine Color Straw, Urine Clarity Clear, Urine pH 6.5, Ur Specific [place] 1.010, Urine Protein Negative, Urine Glucose (UA) Normal, Urine Ketones Negative, Urine Occult Blood Negative, Urine Nitrite Negative, Urine Bilirubin Negative, Urine Urobilinogen Normal, Ur Leukocyte Esterase Negative, Urine RBC 0 SEEN, Urine WBC 0 SEEN, Ur Squamous Epith Cells 0-5 SEEN, Urine Bacteria 0 SEEN, Urine Mucus 0 SEEN 11/17/23 03:20: WBC 7.3, RBC 4.01 L, Hgb 12.6 L, Hct 37.2 L, MCV 92.8, MCH 31.4, MCHC 33.9, RDW Std Deviation 42.5, RDW Coeff of Geoff 12.5, Plt Count 319, MPV 10.0, Immature Gran % (Auto) 0.300, Neut % (Auto) 76.6 H, Lymph % (Auto) 15.2 L, [place] % (Auto) 7.1, Eos % (Auto) 0.5, Baso % (Auto) 0.3, Absolute Neuts (auto) 5.6, Absolute Lymphs (auto) 1.11, Nucleated RBC % 0, Sodium 142, Potassium 3.9, Chloride 109 H, Carbon Dioxide 26.0, Anion Gap 7, BUN 8, Creatinine 0.98, Estim Creat Clear Calc 125.48, Est GFR (MDRD) Af Amer 110, Est GFR (MDRD) Non-Af 91, BUN/Creatinine Ratio 8.2 L, Glucose 132 H, Calcium 7.6 L Radiography Diagnostic Testing: Radiology Impression Abdomen/Pelvis CT 11/16/23 09:57 IMPRESSION: 1. Thickening of the appendix with periappendiceal stranding consistent with acute appendicitis. 2. Hepatic steatosis, mild splenomegaly with collateral veins in the splenic hilum which may reflect portal venous hypertension. Electronically Signed: Jr Nation MD at 12:14 EST , ADDENDUM: 11/16/23 1224 IMPRESSION: 1. Thickening of the appendix with periappendiceal stranding consistent with acute appendicitis. 2. Hepatic steatosis, mild splenomegaly with collateral veins in the splenic hilum which may reflect portal venous hypertension. N.B. : The above Results were Read Back by Jr Nation MD to Antonio Ferguson DO, and understanding confirmed on 11/16/2023 12:17:16 (ET). Electronically Signed: Jr Nation MD at 12:14 EST , Physical Exam Const alert, oriented x3 and no apparent distress GI normal to inspection, nondistended, normoactive bowel sounds GI Narrative: Abdominal- incisions c/d/i. No erythema or infection noted. Assessment & Plan Assessment/Plan (1) Acute appendicitis: QUALIFIERS: Acute appendicitis type: with localized peritonitis Appendicitis gangrene presence: unspecified whether gangrene present Appendicitis perforation presence: unspecified whether perforation present Appendicitis abscess presence: without abscess Qualified Code(s): K35.30 - Acute appendicitis with localized peritonitis, without perforation or gangrene PLAN: I have evaluated the patient in conjunction with Dr. Nicolas. Patient progressing well Increase to regular diet Plan for discharge today Charges/Coding Visit Charges Inpatient E&M: 59832 Subs Hosp L1 (no charge; post-op)
--- NOTE | 2023-11-17 09:29 | DCINST_ITS ---
Discharge Instructions Diet Discharge Diet: Light diet - advance as tolerated Activity Discharge Activity: May Not Drive (For 3-5 days or while taking narcotic pain medication) and May Shower Lifting Restrictions: 10 pounds for the first 2 weeks Dressing / Incision Call your doctor if your incision/area has: Continuous Slow Oozing, Sudden Increased Bleeding, Increased Pain/ Swelling, Increased Redness, Foul Smelling Discharge and Swelling at the incision site Call your doctor if you observe: Fever of 101 or Higher Suture Line Care: Avoid Pulling/Pushing and Avoid Pinching/Bending Remove Dressing in: 2 days Cleanse incision/area with: Soap & Water Follow Up Care Please Follow Up With: Suresh Nicolas MD When: Please call to schedule an appointment for a 2 week follow-up at [phone] Test Results: Test results from this visit will be discussed in further detail at your follow- up appointment, if applicable. Discharge Plan Admission Admit Date/Time: 11/16/23 13:05 Primary Reason for Your Visit: Acute appendicitis Attending Provider: Suresh Nicolas Primary Care Provider: Arminda Mayen Instructions Additional Instructions / Restrictions: Appendectomy Diet ? Start light with soups and soft bland foods. You may advance diet as tolerated. Activity ? You may drive in 3-5 days but not while taking narcotic pain medication. ? I encourage walking. You may go up steps, one at a time. ? Do not swim or use hot tubs for 2 weeks. ? For comfort, you may use warm compresses or ice as needed for 15-20 minutes at a time. Lifting ? You may lift up to 10 pounds for the first 2 weeks. You may advance to 15 pounds for the next 2 weeks. Dressings/Incision ? You may shower OVER your plastic dressings ? Do NOT tub bathe for 1 week ? Leave plastic dressings on for 2 days. ? When plastic dressings are removed, you will find steri-strips. It is okay to continue showering with them in place, pat them dry. ? You may remove steri-strips after 1 week. We recommend getting them soaking wet for easier removal. Medications ? Anesthesia used during surgery and pain medications may cause constipation. I recommend initiating on the day of surgery a fiber supplement like, Metamucil, Citrucel, FiberCon, Benefiber, or a generic form of these medications. 1 heaping tablespoon in water daily. You may continue to utilize any bowel regimen or oral laxatives that you routinely take. ? As long as you are not intolerant to Tylenol, acetaminophen, ibuprofen, Motrin, Advil, Aleve, or similar medications, I would recommend transitioning to these [id number]-[id number] medicines as soon as possible instead of continued use of narcotic pain medication. Follow up ? You should call [facility] soon after surgery, at [phone] option 1 to make a follow up appointment for 2 weeks after your surgery. Discharge Orders/Prescriptions Prescriptions: New oxycodone 5 mg Tablet 5 mg PO Q6H PRN PRN (Reason: Pain Score 6-10) 3 Days Qty: 10 0RF Continued triamterene-hydrochlorothiazid 37.5-25 mg tablet 1 tab PO QAM Qty: 90 3RF valsartan 80 mg tablet 80 mg PO DAILY Qty: 90 1RF loratadine 10 MG capsule 10 mg PO DAILY Referrals / Follow Up: Arminda Mayen MD [Primary Care Provider] - Disposition Disposition (needs filled in before D/C Order can be placed): Home, Self Care
[2023-11-17 09:35] VITALS: BP 145/82; PULSE 79; RESP 16; TEMP 37.1; O2SAT 97
[2023-11-17] MEDS: Triamterene 37.5MG/Hctz 25MG Capsule 1 CAP PO (09:46)
[2023-11-17] MEDS: Losartan Potassium 25 MG Tablet PO (09:46)
[2023-11-17 11:08] VITALS: BP 143/78; PULSE 86; RESP 16; TEMP 36.7; O2SAT 95
--- NOTE | 2023-11-17 11:15 | PHA.DC_ITS ---
Pharmacy [facility] has performed discharge medication reconciliation and counseling for this patient. 1. OXYCODONE 5MG PO Q6H PRN PAIN The patient's discharge medication list was reviewed for discrepancies and discrepancies were resolved. The patient was counseled on the following discharge medications and changes in medications for homegoing were reviewed. The Reason for Use, instructions for use, and potential side effects were reviewed for all new medications. The patient's questions regarding all of their medications were answered. The patient was able to verbally demonstrate an understanding of their discharge medications. Medications at Discharge Home Medications loratadine 10 mg capsule 10 mg PO DAILY ALLERGIES 02/13/21 triamterene 37.5 mg-hydrochlorothiazide 25 mg tablet 1 tab PO QAM BLOOD PRESSURE #90 tabs 07/09/23 valsartan 80 mg tablet 80 mg PO DAILY BLOOD PRESSURE #90 tabs 07/09/23 oxycodone 5 mg tablet 5 mg PO Q6H PRN PRN Pain Score 6-10 3 days #10 tabs 11/17/23
== END 2023-11-17 11:15 | disposition home or self-care (01) ==
LOC: ED 13:04 → MS3 13:22
PROVIDERS: Physician Assistant; Admitting Provider Surgery; Emergency Provider Emergency Medicine; PCP Internal Medicine; Visit Provider Surgery
PROC: 0DTJ4ZZ Resection of Appendix, Percutaneous Endoscopic Approach (ICD-10-PCS; CPT 44970; principal; 2023-11-16 16:35)
DX: K35.80 Unspecified acute appendicitis (principal); I10 Essential (primary) hypertension; Q60.0 Renal agenesis, unilateral; J45.909 Unspecified asthma, uncomplicated; G47.33 Obstructive sleep apnea (adult) (pediatric); Z79.899 Other long term (current) drug therapy
CPT/HCPCS: 44970; 36415; 74177; 80048; 80053; 81001; 83690; 85025; 88304; 93005; 96361; 96365; 96366; 96375; 99221; 99284; J7030; Q9967; A4216; G0378; J2405

== ENCOUNTER → 2023-12-06 | Outpatient (CLI) | payer OTHER, SELFPAY | END | disposition home or self-care (01) | LOC: LABSPEC 15:53 | PROVIDERS: PCP Internal Medicine; Referring Provider Surgery; Visit Provider Surgery | DX: Z01.818 Encounter for other preprocedural examination (principal) | CPT/HCPCS: 87081 ==

== ENCOUNTER 2024-01-10 06:00 | Day surgery (SDC) | payer OTHER, SELFPAY ==
[2024-01-10] VITALS (9 sets, daily range): BP systolic 110–144; BP diastolic 66–82; PULSE 69–88; RESP 16–18; TEMP 36.2–36.8; O2SAT 94–100; BMI 39.2
--- OUTSIDE RECORDS SUMMARY | 2024-01-10 06:11 | XMS RPT_ITS | CCD ---
Author Name Unknown Address [address] [place] [address] Organization [facility] Care Team Providers Care 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 Name Role Phone Faheem MONTESINOS, Efewongbe Johny Primary Care Provider Manuel HUITRON/Riaz SINGLETARY Unavailable Pippa LAL, Wendy Unavailable Unavailable Trinidad Weems MD Unavailable SELF, SELF Referring Unavailable PUCKETT LINETTE Attending Unavailable OLEGHE, EFEWONGBE B Primary Care Unavailable SARAI TRINIDAD Referring Unavailable OLEGHE, EFEWONGBE B Primary Care Unavailable TRINIDAD WEEMS Attending Unavailable OLEGHE, EFEWONGBE B Primary Care Unavailable PUCKETT LINETTE Referring Unavailable PUCKETT LINETTE Attending Unavailable OLEGHE, EFEWONGBE B Primary Care Unavailable PUCKETT LINETTE Admitting Unavailable SELF, SELF Referring Unavailable PUCKETT LINETTE Attending Unavailable OLEGHE, EFEWONGBE B Referring Unavailable SARAITRINIADD Admitting Unavailable SARAITRINIDAD Attending Unavailable OLEGHE, EFEWONGBE B Primary Care Unavailable OLEGHE, EFEWONGBE B Primary Care Unavailable TRINIDAD WEEMS Attending Unavailable SELF, SELF Referring Unavailable OLEGHE, EFEWONGBE B Primary Care Unavailable OLEGHE, EFEWONGBE B Referring Unavailable SARAITRINIDAD Attending Unavailable OLEGHE, EFEWONGBE B Primary Care Unavailable OLEGHE, EFEWONGBE B Primary Care Unavailable SELF, SELF Referring Unavailable PUCKETT LINETTE Attending Unavailable TRINIDAD WEEMS Attending Unavailable OLEGHE, EFEWONGBE B Primary Care Unavailable SELF, SELF Referring Unavailable OLEGHE, EFEWONGBE B Referring Unavailable TRINIDAD WEEMS Attending Unavailable OLEGHE, EFEWONGBE B Primary Care Unavailable JOSE JUDD Referring Unavailable JOSE JUDD Attending Unavailable OLEGHE, EFEWONGBE B Primary Care Unavailable LINETTE PUCKETT Admitting Unavailable JOSE JUDD Referring Unavailable JOSE JUDD Attending Unavailable OLEGHE, EFEWONGBE B Primary Care Unavailable TRINIDAD WEEMS Attending Unavailable OLEGHE, EFEWONGBE B Primary Care Unavailable SELF, SELF Referring Unavailable OLEGHE, EFEWONGBE B Referring Unavailable TRINIDAD WEEMS Attending Unavailable OLEGHE, EFEWONGBE B Primary Care Unavailable OLEGHE, EFEWONGBE B Primary Care Unavailable TRINIDAD WEEMS Attending Unavailable SELF, SELF Referring Unavailable OLEGHE, EFEWONGBE B Primary Care Unavailable TRINIDAD WEEMS Attending Unavailable SELF, SELF Referring Unavailable OLEGHE, EFEWONGBE B Referring Unavailable TRINIDAD WEEMS Attending Unavailable TRINIDAD WEEMS Admitting Unavailable OLEGHE, EFEWONGBE B Primary Care Unavailable OLEGHE, EFEWONGBE B Primary Care Unavailable OLEGHE, EFEWONGBE B Referring Unavailable TRINIDAD WEEMS Admitting Unavailable TRINIDAD WEEMS Attending Unavailable Allergies Allergy Classification Reported Allergen(s) Allergy Type Date of Onset Reaction(s) Facility (3 sources) Shellfish-Derive d Products Propensity to adverse reactions to drug 2 Nausea and Vomiting [facility] Medications Current Medications Medication Drug Class(es) Dates Sig (Normalized) Sig (Original) amLODIPine 10 mg oral tablet (3 sources) Dihydropyridine Calcium Channel Sara take 1 tablet by mouth once daily amLODIPine 10 MG tablet Take 10 mg by mouth daily. 0 Active bacitracin 0.5 unt/mg / polymyxin b 10 unt/mg topical ointment (2 sources) Polymyxin-class Antibacterial Start: 02-18-2022 bacitracin-cindi ymyxin b 500-20300 UNIT/GM Ointment Indications: Follow up , S/P split thickness skin graft Apply nickel size amount to Xeroform and place on right lower extremity skin graft. Change this once a day 30 g 0 02/18/2022 Active hydroCHLOROthiazide 25 mg / triamterene 37.5 mg oral capsule (3 sources) Potassium-sparing Diuretic, Thiazide Diuretic take 1 capsule by mouth once daily in the morning triamterene-hy drochlorothiaz han 37.5-25 MG per capsule Take 1 capsule by mouth daily every morning. 0 Active loratadine 10 mg oral capsule (3 sources) Start: 02-13-2021 Loratadine 10 MG capsule Take by mouth. 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 28 capsule 0 01/28/2022 02/04/2022 gabapentin 100 mg oral capsule (1 source) Anti-epileptic Agent Start: 01-12-2022 End: 02-18-2022 take 1 capsule by mouth three times daily gabapentin (Neurontin) 100 MG capsule Take 1 capsule by mouth 3 times daily. 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 8 tablet 0 01/12/2022 02/10/2022 Discontinued (Therapy completed) traMADol hydrochloride 50 mg oral tablet (1 source) Opioid Agonist Start: 01-13-2022 End: 02-10-2022 take 1 tablet by mouth every six hours as needed for pain traMADol 50 MG tablet Indications: Post-operative pain Take 1 tablet by mouth every 6 hours as needed for Severe Pain for up to 7 days. 28 tablet 0 01/13/2022 02/10/2022 Discontinued (Therapy completed) Problems Active Problems Problem Classification Problem Date Documented Da te Episodic/Chronic Essential hypertension (3 sources) Hypertensive disorder; Translations: [Essential (primary) hypertension] Onset: 12-09-2021 12-09-2021 Chronic Melanomas of skin (6 sources) Malignant melanoma; Translations: [Malignant melanoma of skin, unspecified] Onset: 12-09-2021 Chronic Other aftercare (1 source) Patient encounter status; Translations: [Encounter for follow-up examination after completed treatment for conditions other than malignant neoplasm] Episodic Other nutritional; endocrine; and metabolic disorders (3 sources) Obese class II; Translations: [Obesity, unspecified] Onset: 12-10-2021 12-10-2021 Chronic Residual codes; unclassified (3 sources) Sleep apnea; Translations: [Sleep apnea, unspecified] Onset: 12-09-2021 12-09-2021 Chronic Residual codes; unclassified (3 sources) Hypersomnia; Translations: [Hypersomnia, unspecified] Onset: 12-09-2021 12-09-2021 Chronic Past or Other Problems Problem Classification Problem Date Documented Date Episodic/Chronic Biliary tract disease (3 sources) Gallstone; Translations: [Calculus of gallbladder without cholecystitis without obstruction] Onset: 12-09-2021 12-09-2021 Episodic Mood disorders (3 sources) Mood disorders Onset: 01-07-2022 01-07-2022 Unclassified (1 source) Onset: 01-07-2022 01-07-2022 Results Test Name Value Interpretation Reference Range Facil ity Vital Signs Date Time Vital Sign Value Performing Clinician Faci lity 04-29-2022 07:57-0400 Body mass index (BMI) [Ratio] 37.15 kg/m2 Trinidad Weems MD Work Phone: [facility] 04-29-2022 07:57-0400 Body weight 138.44 kg Trinidad Weems MD Work Phone: [facility] 02-04-2022 11:34-0500 Body temperature 96.69 [degF] Trinidad Weems MD Work Phone: [facility] 02-04-2022 11:34-0500 Diastolic blood pressure 94 mm[Hg] Trinidad Weems MD Work Phone: [facility] 02-04-2022 11:34-0500 Heart rate 130 /min Trinidad Weems MD Work Phone: [facility] 02-04-2022 11:34-0500 Respiratory rate 16 /min Trinidad Weems MD Work Phone: [facility] 02-04-2022 11:34-0500 Systolic blood pressure 152 mm[Hg] Trinidad Weems MD Work Phone: [facility] Encounters Encounter Date Encounter Type Care Provider Facility Start: 04-29-2022 ambulatory TRINIDAD WEEMS Facility :[facility] Start: 04-29-2022 End: 04-29-2022 Postop follow up visit related to original px Trinidad Weems MD Work Phone: [facility] Procedures Date Procedure Procedure Detail Performing Clinician H/O: surgery S/P split thickness skin gra ft Trinidad Weems MD Work Phone: Plan of Treatment Date Care Activity Detail Author Start: 12-10-2022 Potassium [Moles/vol ume] in Serum or Plasma POTASSIUM [facility] Start: 07-30-2022 Influenza vaccination INFLUENZ A VACCINE (Season Ended) [facility] Start: 04-29-2022 End: 04-29-2022 Patient encounter procedure 04/29/2022 Office Visit Plastic Trinidad Yu MD [address] [place] [id number] [facility] [place] Start: 02-25-2022 End: 02-25-2022 Patient encounter procedure 02/25/2022 Office Visit Plastic Trinidad Yu MD [address] [phone] [facility] [place] Start: 09-10-2021 COVID-19 VACCINE (3 - Booster for Pfizer series) COVID-19 VACCINE (3 - Booster for Pfizer series) [facility] Start: 07-30-2021 Influenza vaccination INFLUENZA VACC INE (#1) [facility] Start: 2004 Third diphtheria, te tanus and acellular pertussis (DTaP) vaccination TDAP (ADULT) [facility] Start: 2003 Tetanus vaccination TETANUS [facility] Start: 2000 HIV screening HIV SCREENING DISCUSSION [facility] Start: 1985 Hepatitis C antibody , confirmatory test HEPATITIS C VIRUS SCREENING [facility] Immunizations Immunization Date Immunization Notes Care Provider Fa cility 04-10-2021 COVID-19 vaccine, MR GRIFFITHS, Pfizer, 0.3 ML Trinidad Weems MD Work Phone: [facility] 03-20-2021 COVID-19 vaccine, MR GRIFFITHS, Pfizer, 0.3 ML Trinidad Weems MD Work Phone: [facility] Payers Date Payer Category Payer Unknown [id number] 2021 Private Health Insurance [id number] 2018 Unknown [id number] 1985 Unknown [id number] 2.16 [id number] 1985 Unknown [id number] 2. [id number] 1985 Unknown [id number] 2.16 [id number] 1985 Unknown [id number] 2.16 [id number] 1985 Unknown [id number] 2.16 [id number] 1985 Unknown [id number] 2.16 [id number] 1985 Unknown [id number] 2.16. [id number] 1985 Unknown [id number] 2.16. [id number] 1985 Unknown [id number] 2.16 [id number] 1985 Unknown [id number] 2.16. [id number] 1985 Unknown [id number] 2.16. [id number] 1985 Unknown [id number] 2.16. [id number] 1985 Unknown [id number] 2.16. [id number] 1985 Unknown [id number] 2.16. [id number] 1985 Unknown [id number] 2.16. [id number] 1985 Unknown [id number] 2.16. [id number] 1985 Unknown [id number] 2.16. [id number] 1985 Unknown [id number] 2.16. [id number] 1985 Unknown [id number] 2.16. [id number] Social History Date Type Detail Facility Start: 12-10-2021 Tobacco smoking stat [facility] Never smoked tobacco [facility] Start: 12-10-2021 Tobacco use and exposure Smokeless tobacco non-user [facility] Start: 02-04-2022 End: 04-29-2022 Alcohol intake Lifetime non-drinker (finding) [facility] Start: 12-10-2021 History SDOH Alcohol Frequency 1 [facility] Start: 1985 Sex Assigned At Not on file [facility] Start: 02-09-2022 End: 02-19-2022 Exposure to SARS-CoV-2 (event) Unable to assess [facility] Start: 02-15-2022 End: 02-25-2022 Exposure to SARS-CoV-2 (event) Not sure [facility] Medical Equipment Procedure Code Equipment Code Equipment Origin al Text Equipment Identifier Dates Dressing Wound 5 x4in 2 Layer Matrix Bovine Collagen - [id number] Start: 01-23-2022 Goals Date Patient Goal Desired Activity /State Clinical Notes 02-19-2021 to 04-29-2022 Shirley Lara LPN - 04/29/2022 8:00 AM Bang Alcazar PA-C - 04/29/2022 8:00 AM EDTShirley Lara LPN - 03/18/2022 8:00 AM Aldo Weems MD - 03/18/2022 8:00 AM EDT Note Date & Type Note Facility 04-29-2022 History of Present illness Narrative Formatting of this note might be differe nt from the original. Patient here today for check on right foot graft. Patient reports swelling improved. Does have one area that feels like its tight and pulls some when patient is walking. Patient is currently just doing Vaseline and kathy gauze. Patient denies drainage. Patient seen and examined by XIOMY and Dr. Weems Reason for Visit Riaz Diop is a 36 y.o. male PMHX of right plantar foot melanoma s/p WLE with Dr. Puckett 12/26/21. Most recently s/p debridement of right medial foot wound with integra placement 01/23/22 and s/p STSG to right medial foot wound 02/10/22. Subjective: Reports to be recovering well. Notes some tugging toward the medial arch and some discomfort first thing in the morning but notes as he walks throughout the day the discomfort eases. Feels that every day he gets a little better and better. ROS: Denies wound symptoms such as such as redness, swelling, odor, increasing pain, or drainage. Objective: Physical Exam Wt (!) 138.4 kg (305 lb 3.2 oz) BMI 37.15 kg/m Smoking Status Never Smoker General appearance: well-appearing, NAD, AAOx3 Chest: non-labored breathing Extremities: Skin graft well healed. Donor site completely epithelialized and healed. No signs of infection. Residual ankle edema noted. Assessment/Plan: Riaz Diop doing well s/p STSG to right medial foot wound 02/10/22. Recovering well, skin graft healed. - No restrictions - Surgical sites fully healed - Return to clinic as needed - FWB to RLE - Contact clinic with questions or concerns A total of 10 minutes of ogco-ko-ramu time were spent with the patient, of which >50% were spent on counseling and coordination of care. documented in this encounter [facility] 03-18-2022 History of Present illness Narrative Formatting of this note might be differe nt from the original. Patient here today for post op appt. Patient with no concerns. Patient only using Vaseline to wound, no drainage on dressing. Patient with no complaints. Reason for Visit Riaz Diop is a 36 y.o. male PMHX of right plantar foot melanoma s/p WLE with Dr. Puckett 12/26. Most recently s/p debridement of right medial foot wound with integra placement 01/23/22 and s/p STSG to right medial foot wound 02/10/22. Subjective: Reports to be recovering well. Continued vaseline BID to skin graft and donor site. Has resumed walking and FWB. Feels that he is recovering strength. ROS: Denies wound symptoms such as such as redness, swelling, odor, increasing pain, or drainage. Objective: Physical Exam Smoking Status Never Smoker General appearance: well-appearing, NAD, AAOx3 Chest: non-labored breathing Extremities: Skin graft well healed. Donor site completely epithelialized and healed. No signs of infection. Residual ankle edema noted. Assessment/Plan: Riaz Diop doing well s/p STSG to right medial foot wound 02/10/22. Recovering well, skin graft healed. - Discussed treating skin graft with moisturizer BID going forward - FWB to RLE - Continue RLE elevation - Discussed PT referral but patient would like to defer as he is making significant progress on his own. Will plan to reevaluate at his next visit. - Follow up in 4-6 weeks documented in this encounter [facility] 02-04-2022 History of Present illness Narrative Formatting of this note might be differe nt from the original. Plastic Surgery Post-op Riaz Diop ([id number]) 36 y.o. male presenting for a post-op visit. Vitals: Smoking Status Never Smoker Estimated body mass index is 36.71 kg/m as calculated from the following: Height as of 01/23/22: 1.93 m (6' 4 ). Weight as of 01/23/22: 136.8 kg (301 lb 9.6 oz). s/p debridement of right medial foot wound with integra placement 01/23/[address] Weems. Pain level: 2-3/10, reports pain as: nerve pain, throbbing Medications for pain: Tylenol,ibuprofen, gabapentin Signs of infection: Odor that smells chemically per patient Bowel movement since sx: yes Dressings: WTD dressing BID New concerns: change in odor Reason for Visit Riaz Diop is a 36 y.o. male PMHX of of right plantar foot melanoma s/p WLE with Dr. Puckett 12/26. Most recently s/p debridement of right medial foot wound with integra placement 01/23/[address] Weems. Subjective: Recovering well, no issues. Has continued with WTD dressing changes. ROS: Denies wound symptoms such as such as redness, swelling, odor, increasing pain, or drainage. Objective: Physical Exam BP (!) 152/94 (BP Location: Left arm, BP Position: Sitting) Pulse 130 Temp 96.7 F (35.9 C) (Infrared) Resp 16 Smoking Status Never Smoker General appearance: well-appearing, NAD, AAOx3 Chest: non-labored breathing Right medial foot wound is healthy appearing with beefy red granulation tissue at base. No exposed tendons. No surrounding erythema or drainage. Silicone layer removed. Assessment/Plan: Riaz Diop doing well s/p debridement of right medial foot wound with integra placement 01/23/22. -Ready for skin graft, case request placed. -Continue with WTD dressing changes BID -Continue off-loading and walking boot documented in this encounter [facility] 11-08-2021 Note HNO ID: [id number] Author: Aleena Bose MD Service: ? Author Type: Physician Type: Progress Notes Filed: 11/08/2021 9:04 AM Note Text: 11/08/2021 HPI: 36 year old male reports for vasectomy. He again confirms he desires permanent sterilization and has no desire to father children in the future. Operation: Vasectomy Anatomic Site: Vas Deferens Approach: Percutaneous Device: None Qualifier: None PMHx/PSHx: see above, otherwise unchanged Rx: No scheduled NSAIDs or blood thinner for past 5 days. ROS: No new or inguinal complaints Labs: None Imaging: None PE: General: Well masculinized, well nourished male Psych: euthymic, NAD Neuro: AANDOx3 exam: see below. Procedure: Vasectomy Patient?s identity was confirmed, written informed consent was obtained, and the time out performed before the procedure was initiated The patient was placed in a supine position and the genitalia were prepped and draped in a sterile manner. Examination revealed no scrotal lesions, descended testicles bilaterally without masses and readily palpable vasa deferens. The right scrotal skin and cord structures was anesthetized with 5 cc of 2% lidocaine without epinephrine. A No-scapel technique was used to isolated and remove a small portion of the vas deferens. The vasal ends were secured with clips and hemostasis was ensured. The skin edges were closed with an absorbable suture. His L vas deferens was NOT palpable. 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 The procedure was concluded The patient tolerated the procedure well. Postoperative care, limitations, and expectations were reviewed with the patient. He was again instructed to use an alternate form of control until he is notified that his postprocedure semen analysis reveals no sperm. Imp: S/p vasectomy P: 1) Semen Analysis in 3 months 2) post-procedure instructions given to pt with verbalization of understanding. 3) CF testing Aleena Bose MD [facility] 10-31-2021 Note HNO ID: [id number] Author: Shayne Howe PA-C Service: ? Author Type: Physician [employer] Equipment Operator Type: Progress Notes Filed: 10/31/2021 4:49 PM Note Text: Riaz Diop October 31, 2021 Referred by: Self CC: Desires permanent sterilization HPI: 36 year old male states he desire permanent surgical sterilization. Reports fathering 1 children and expressly states he does not desire to father children in the future. Genitourinary history: Hx undescended testis: No Hx stone disease: No Hx UTI/prostatitis/epididimitis/STI: No Sexual frequency/libido: No Urinary sx: No Hematuria: No Solitary Kidney - Congenital No family history on file. No past medical history on file. No past surgical history on file. Current Outpatient Medications Medication Sig - loratadine 10 mg cap Take by mouth once daily. - hydroCHLOROthiazide (HYDRODIURIL, ESIDRIX) 12.5 mg tablet Take by mouth once daily. No current facility-administered medications for this visit. Allergies: Patient has no known allergies. Social History Tobacco Use - Smoking status: Not on file - Smokeless tobacco: Not on file Substance Use Topics - Alcohol use: Not on file - Drug use: Not on file Occupation/exposures: None ROS: ENMT: No changes in hearing or vision, no nose bleeds or other nasal problems SKIN: Negative for lesions, rash, and itching. ENDOCRINE: Negative for cold or heat intolerance, polyuria, polydipsia and goiter. RESPIRATORY: Negative for cough, wheezing and shortness of breath CARDIOVASCULAR: Negative for chest pain, leg swelling and palpitations GI: Negative for abdominal discomfort, blood in stools or black stools : Negative for dysuria, frequency and incontinence MUSCULOSKELETAL: Negative for joint pain or swelling, back pain, and muscle pain. PSYCH: Negative for sleep disturbance, mood disorder and recent psychosocial stressors. NEURO: Negative All other systems reviewed and are negative. Physical Exam: There were no vitals taken for this visit. General: Well appearing, alert, in no acute distress, well-hydrated, well nourished. ENMT: Negative Neuro: Awake, alert and oriented x 3 Inguinal: No lympnadenopathy and No hernia - repaired as an infant Gastrointestinal:Non-tender, Soft : Testes: descended, without tenderness, and no masses bilaterally. L Normal ccs - R Normal ccs Phallus; normal, circumcised -, no lesions, Meatus: Orthotopic, patent, no discharge and Scrotum: no lesions, normal rugae Varicocele: No Epididymides: L Normal R Normal Vas deferens: Bilaterally Normal Musculoskeletal: normal, supple and thyroid normal size, non-tender, without nodularity Assessment: 36 year old male desires vasectomy. The patient attests that he watched and understood the AUA Vasectomy video and read and understood the No-Scalpel Vasectomy pamphlet. He was instructed to stop all NSAIDs, aspirin and other blood thinners 5 days prior to the vasectomy. He was instructed to shave entire front of scrotum to the base of the penis the morning of the vasectomy. Postprocedure care, expectations, and limitations were discussed. He voiced understanding of these instructions and stated his questions were answered. Plan: 1) Proceed to vasectomy scheduling I personally counseled this patient about the following and he voiced understanding: a) Vasectomy is a permanent and irreversible form of sterilization b) 1:1,000 rate of recanalization which can results in the return of sperm into the ejaculate after vasectomy c) Patient must use alternative form of control until he is notified that his postprocedure semen analysis contained no sperm. Consultation requested by Self for an opinion regarding vasectomy and my final recommendations will be communicated back to the requesting physician by way of shared Medical record or letter via US mail. Visit duration 30 minutes with approximately 50% of time in counseling Shayne Howe, ZOILA, [place], PA-C [facility] 03-03-2021 Note [facility] 03-03-2021 Note [facility] 02-19-2021 Note DATE OF SERVICE: INDICATION: Choledocholithiasis. POSTPROCEDURE DIAGNOSIS: Dilated bile duct at around 12 mm with multiple filling defects, clear post sphincterotomy, drainage of black bile. PROCEDURE: Informed consent was obtained after explaining the indications, the risks including perforation, bleeding, phlebitis, and medication reaction. MEDICATION: General anesthesia. DESCRIPTION OF PROCEDURE: [employer] video therapeutic side view endoscope was advanced under direct vision to the small bowel. The papilla was identified. Selective cannulation of the biliary tree was obtained. Cholangiogram revealed dilated bile duct at around 12 mm with multiple filling defects. Sphincterotomy was performed and extended. Using a 12 to 15 mm balloon, the duct was dragged multiple times, recovering small stones, sludge, and black bile. Duct clearance was assured. Cystic duct was not opacified. Procedure tolerated. RECOMMENDATION: Follow up clinically. Referral for surgical consultation for [facility] PATIENT NAME: RIAZ DIOP [address] [place] MEDICAL REC #: [id number] [place] [address] ADMIT DATE: DISCHARGE DATE: GASTROENTEROLOGY REPORT ATTENDING PHY: Jacinto Macias MD cholecystectomy discussed with the patient and the . Jacinto Macias MD [id number] SSI File#: [id number] END OF DOCUMENT / CHANGE LOG FOLLOWS Last Edited By Elec. Signed By Jacinto Macias MDA Jacinto Macias MD #PATRICIOA on 06/29/2021 11:37 ET on 06/29/2021 11:37 ET Revision Number - 2 Verified/Reviewed by 06/29/[address] [facility] PATIENT NAME: RIAZ DIOP [address] [place] MEDICAL REC #: [id number] [place] [address] ADMIT DATE: DISCHARGE DATE: GASTROENTEROLOGY REPORT ATTENDING PHY: Jacinto Macias MD [facility] Diagnosis S/P split thickness skin graft- Primary Encounter for follow-up Malignant melanoma of right lower extremity including hip Malignant melanoma of skin of lower limb, including hip [facility] Diagnosis Malignant melanoma of right lower extremity including hip- Primary Malignant melanoma of skin of lower limb, including hip documented [facility] Summary Purpose Family History No Family History Records FoundNo Family History Records FoundNo Family History Records FoundNo Family History Records Found Advance Directives No Advanced Directives Records FoundNo Advanced Directives Records FoundNo Advanced Directives Records FoundNo Advanced Directives Records Found Additional Source Comments (unrecognized sect ion and content) No Status Records FoundNo Status Records FoundNo Status Records FoundNo Status Records Found INFORMATION SOURCE (unrecogn ized section and content) DATE CREATED AUTHOR AUTHOR'S ORGANIZ ATION 06/29/2021 [facility] DATE CREATED AUTHOR AUTHOR'S ORGANIZ ATION 02/19/2022 [facility] DATE CREATED AUTHOR AUTHOR'S ORGANIZ ATION 05/02/2022 [facility] Reason for Visit (unrecogniz ed section and content) Reason Comments Post Op Visit Care Teams (unrecognized sec tion and content) 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 Relationship Specialty Start Date End Date Arminda Mayen MD [address] [facility] [address] [place] [phone] PCP - General Internal Medicine 11/26/21 Riaz Jackson MB/HAYDER [address] [place] [phone] Referring Provider Hematology 11/26/21 Wendy Das RN Case Manager 12/30/21 Trinidad Weems MD [address] [place] [address] [address] [place] [address] Surgeon Plastic Surgery 01/02/22 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 Relationship Specialty Start Date End Date Arminda Mayen MD [address] [facility] [address] [place] [phone] PCP - General Internal Medicine 11/26/21 Riaz Jackson MB/HAYDER [address] [place] [address] Referring Provider Hematology 11/26/21 Trinidad Weems MD [address] [facility] [address] [place] [address] Surgeon Plastic Surgery 01/02/22 FOR RECORDS PERTAINING TO PATIENTS WHO ARE OR HAVE BEEN ENROLLED IN A CHEMICAL DEPENDENCY/SUBSTANCEABUSE PROGRAM, SOME INFORMATION MAY BE OMITTED. This clinical summary was aggregated from multiple sources. Caution should be exercised in using it in the provision of clinical care. This summary normalizes information from multiple sources, and as a consequence, information in this document may materially change the coding, format and clinical context of patient data. In addition, data may be omitted in some cases. CLINICAL DECISIONS SHOULD BE BASED ON THE PRIMARY CLINICAL RECORDS. [facility] [employer] [facility]. provides no warranty or guarantee of the accuracy or completeness of information in this document.
[2024-01-10] MEDS: Lactated Ringers 1,000 ML 15 ML IV ×2 (06:43→10:52)
[2024-01-10] MEDS: Cefazolin 3 GM in 0.9% Normal Saline (100mL Bag) 100 ML IV (07:35)
--- NOTE | 2024-01-10 07:36 | HP.PCM_ITS ---
History and Physical Date of Admission: 01/10/24 Date of Service: 12/06/23 MR#: [id number] Acct: [id number] Name: JUDY DIOP Rep #: [id number] : 1985 Provider: Dr. Suresh Nicolas MD Age/Sex: 38/M Location: [facility] Status: Signed Intake Vital Signs 11/16/2315:26 12/06/2414:01 Height 6 ft 4 in 6 ft 4 in Weight: 316 lb 4 oz BMI 38.5 BP 140/84 H Blood Pressure Location Rt brachial Position Sitting Respiration 18 Pulse 89 Pulse Source Monitor Temp 97.4 F L Temp Source Temporal Pulse Oximetry (%) 97 Oxygen Delivery Method room air Intake Visit Reasons: APPY 11/16, DISCUSS HERNIA SURGERY Chief Complaint: appy 11/16, discuss hernia surgery Is patient in pain?: No Allergies shellfish derived Allergy (Severe, Verified 12/06/23 15:00) Nausea/Vom/Diarrhea Medications loratadine 10 mg capsule 10 mg PO DAILY ALLERGIES 02/13/21 [History Confirmed 12/06/23] triamterene 37.5 mg-hydrochlorothiazide 25 mg tablet 1 tab PO QAM BLOOD PRESSURE #90 tabs 07/09/23 [Rx Confirmed 12/06/23] valsartan 80 mg tablet 80 mg PO DAILY BLOOD PRESSURE #90 tabs 07/09/23 [Rx Confirmed 12/06/23] Subjective Details: Patient presents following laparoscopic appendectomy on 11/16/2023. Since hospital discharge they have been doing well. They report no significant postoperative pain. They report tolerance of a diet. Concerning their bowel movements, they report that these have normalized after an initial period of constipation (3 days). They had no wound concerns. They do share that they are interested in being underway with their umbilical hernia repair as soon as possible Mr. Diop states that his postponed her planned hysterectomy due to his recovery from his appendectomy and that they, jointly, wish to go through with his hernia repair before she proceeds with her surgery. Discussing Mr. Diop's hernia specifically, he denies any pain from this site. He shares that he never had pain, however, when he underwent surgery on it the first time with Dr. Prado of [facility]. He confirms that although he was tested for an infectious cause for his history of right leg cellulitis no infection was ever detected. To this end he denies any history of boils. He shares that his blood sugars have been somewhat erratic in the past, but that when tested for diabetes through a A1c screening is number was perfect . He confirms that he is a non-smoker. As alluded to above, Mr. Diop underwent cholecystectomy with primary umbilical hernia repair by Dr. Prado in 2020. Objective Details: Constitutional: No acute distress, upbeat Abdomen: Well-healing port site incisions, nondistended, soft, nontender to palpation. Umbilical hernia defect is palpable with some scar tissue in the defect opening. Patient's hernia defect is nontender with palpation Coding Level of Care Code Off vis,est,level 4 Diagnoses Status post laparoscopic appendectomy Z90.49 Umbilical hernia without obstruction and without gangrene K42.9 Comment Visit serves as a postoperative visit as well as a consultation visit [facility] Medical History Asthma Congenital absence of left kidney Diarrhea Discoloration of skin Elevated random blood glucose level Fatty infiltration of liver Gallstones Hypersomnolence Hypertension (Unknown) TARAS (iron deficiency anemia) Localized swelling of right foot Melanoma Obesity (BMI 30-39.9) DORENE (obstructive sleep apnea) Rash Shortness of breath Shoulder pain Sleep apnea Venous insufficiency of both lower extremities Surgical History History of cholecystectomy History of hernia repair History of wisdom tooth extraction Hx of foot surgery Family History Mother Asthma Cancer basal cell Social History household members: spouse Smoking Status: Never smoker alcohol intake: never substance use type: does not use what type of physical activity do you participate in: bicycling frequency: 1-2 times per week Assessment and Plan (No Qualifiers) Assessment and Plan (1) Status post laparoscopic appendectomy: Status: Acute Comment: Patient is a 38-year-old male who presents for his first postoperative visit following uncomplicated laparoscopic appendectomy on 11/16/2023. He has recovered well from the surgery. There are no lingering issues. Postoperative pathology was reviewed. Patient now wishes to be underway with plans for an umbilical hernia repair. I have shared that I would like to wait at least 6 weeks before proceeding with the second surgery. This visit did serve, however, as a preop for that procedure and we will now look for a date sometime in December. Plan: ? No further issues with respect to patient's appendectomy (2) Umbilical hernia without obstruction and without gangrene: Status: Chronic Comment: Patient with a longstanding history of umbilical hernia. This was previously repaired, primarily, by Dr. Prado during cholecystectomy in 2020. CT imaging for patient's appendicitis diagnosis confirmed recurrence and an obvious defect was found at the time of his operation. However, given the infected nature of patient's appendicitis case as well as the hernia recurrence I recommended deferring any future repair until he later date. Mr. Diop is eager to be underway with this repair although he remains asymptomatic. I reviewed with him the CT imaging which shows an approximately 2 cm x 3-1/2 cm fascial defect and discussed repair options including open umbilical hernia repair with mesh versus minimally invasive hernia repair with mesh. Given that he is younger and does some physical activity I have suggested that he might consider a minimally invasive approach and he suggested that he saw merit in this recommendation and wished to proceed as described. Therefore, we will tentatively plan for robot- assisted umbilical hernia repair with mesh in December. Plan: ? Obtain MRSA swab of the nares ? Tentative robot-assisted umbilical hernia repair with mesh December 2023. Outpatient procedure anticipated. I have examined the patient and the H&P has been reviewed. There are no clinical changes since date of exam. The above MRSA screening was negative. Today I have reviewed expectations for the surgery as well as post procedure activity restrictions. Patient's spouse was not at the previous visit and wishes to have these clarified before the both of them. They both expressed understanding and deny further questions. Therefore we will proceed to the operating room for ro bot-assisted umbilical hernia repair with mesh as discussed in further detail above.
--- NOTE | 2024-01-10 09:49 | PCM.OPRPT ---
Report of Operation Date of Procedure: 01/10/24 Pre-Operative Diagnosis: Umbilical hernia Post-Operative Diagnosis: Fat incarcerated umbilical hernia Surgery/Procedure Performed:: 1) Robot-assisted umbilical hernia repair with mesh using intraperitoneal onlay mesh approach 2) Tranversus abdominis preperitoneal block Description of Surgical Findings:: ? Chronically fat?incarcerated umbilical hernia containing omental fat measuring 2.5 x 2.5 cm Surgeon: Suresh Nicolas taker out: Davin Tovar Type of Anesthesia: General/Supplemental Anesthesiologist: Juma Gonzalez Special Medications: 20mL exparel, 20mL NS, 60mL bupivicaine Specimen's removed: NA Estimated Blood Loss (mL): 10 Description of Procedure: After appropriate identification in the preoperative holding area, the patient was brought to the operating room suite where he was positioned supine the operating table. Preoperative antibiotics were administered. Patient was then induced with a general anesthetic. He was positioned with a bump under the left side and the table was broken at the level of the ASIS. Patient's abdomen was prepped and draped in the usual sterile fashion. A formal timeout followed to confirm patient and procedure. Procedure was begun with a Veress entry at Pena's point. Once the set point pressure was reached, this Veress needle was exchanged for an optical trocar and an optical entry was made in this location. Laparoscopic investigation revealed no inadvertent injury to the viscera below. A transversus abdominis plane block was created with 94mL of saline mixed with Exparel and bupivacaine under laparoscopic guidance. Then 2 additional 8 mm robotic trocars were placed along the abdominal wall laterally with approximately 10 cm spacing. The robot was then brought in and docked in standard fashion. Robotically patient's hernia defect was inspected. There was significant scarring between the peritoneum and the hernia contents. Upon making this observation I elected to proceed with an intraperitoneal onlay approach. With downward traction and course of electrocautery the omental hernia contents were from the hernia sac and fully reduced to the peritoneum. There was a moderate amount of preperitoneal fat that would have affected the lie of our ventral mesh so this was taken down from the backside of the posterior rectus sheath with selective electrocautery to try to avoid any injury to the abdominal wall itself. Superiorly, a peritoneal flap was raised from the superior edge of the defect cephalad towards the falciform ligament. This process was continued in all directions until it appeared we had adequate width for the mesh placement. The hernia defect was closed with a 6 inch #1 stratafix suture by running the fascial defect closed and then running the suture back upon itself. Next a 10 x [address] mesh was introduced into the peritoneum and a 3-0 V-Loc suture was used to chandelier the mesh. This V-Loc suture was then run towards the operating side of the opening and circumferentially about the mesh perimeter. Two 9 inch and one 6 inch 3 oh V-Loc suture required for this purpose. This resulted in a nice flat lie of the mesh against the anterior abdominal wall satisfied with this result the needles were removed from the peritoneum under laparoscopic visualization and pneumoperitoneum was released. The robot was then undocked and the trocars were removed. Additional local anesthetic was instilled and the port sites were closed with interrupted 4-0 Monocryl in subcuticular fashion. Steri-Strips and OpSite dressings were applied. Patient was transferred to PACU for ongoing care. Grafts/Implants Used: Ventralight ST, reference [id number], lot [id number] Complications None Admit VTE Documentation VTE Mechan Device Prophylaxis: SCD's Procedures Digestive 40xxx-49xxx: 42355 RPR AA HRN 1ST < 3 CM RDC
[2024-01-10] MEDS: Bupivacaine 0.25% 30 ML Vial (09:54)
[2024-01-10] MEDS: BUPIVACAINE LIPOSOME/PF 20 ML VIAL OPERA.SITE (09:54)
[2024-01-10] MEDS: 0.9% Normal Saline (Pres. free 10 ML Vial (09:54)
--- NOTE | 2024-01-10 09:54 | DCINST_ITS ---
Discharge Instructions Diet Discharge Diet: No restrictions Activity Discharge Activity: May Not Drive (While taking narcotic pain medication) and May Shower May shower in (days): 2 Ice area for (Minutes): 20 Lifting Restrictions: No lifting greater than 10 pounds for the next 5 weeks Dressing / Incision Call your doctor if your incision/area has: Continuous Slow Oozing, Increased Pain/ Swelling, Increased Redness, Foul Smelling Discharge and Swelling at the incision site Call your doctor if you observe: Fever of 101 or Higher, Inability to urinate and Inability to have a bowel movement Change Dressing in: 2 days (Please leave Steri-Strips intact until they fall off spontaneously or are taken off at your follow-up visit) Remove Dressing in: 2 days Cleanse incision/area with: Soap & Water and Keep Dressing Clean & Dry Follow Up Care Please Follow Up With: Suresh Nicolas MD When: 1 week postop Test Results: Test results from this visit will be discussed in further detail at your follow- up appointment, if applicable. Discharge Plan Admission Primary Reason for Your Visit: Umbilical hernia repair Attending Provider: Suresh Nicolas Primary Care Provider: Arminda Mayen Discharge Orders/Prescriptions Prescriptions: New oxycodone 5 mg tablet 5 mg PO Q6H PRN (Reason: pain) 3 Days Qty: 10 0RF Continued triamterene-hydrochlorothiazid 37.5-25 mg tablet 1 tab PO QAM Qty: 90 3RF valsartan 80 mg tablet 80 mg PO DAILY Qty: 90 1RF loratadine 10 MG capsule 10 mg PO DAILY Referrals / Follow Up: Arminda Mayen MD [Primary Care Provider] - Disposition Disposition (needs filled in before D/C Order can be placed): Home, Self Care
== END 2024-01-10 13:11 | disposition home or self-care (01) ==
LOC: SDC 06:03 → AC 06:03
PROVIDERS: PCP Internal Medicine; Referring Provider Surgery; Visit Provider Surgery
PROC: (CPT 49591; principal; 2024-01-10 07:10)
DX: K42.0 Umbilical hernia with obstruction, without gangrene (principal); I10 Essential (primary) hypertension; E66.9 Obesity, unspecified; Z68.38 Body mass index [BMI] 38.0-38.9, adult; G47.33 Obstructive sleep apnea (adult) (pediatric); Z79.899 Other long term (current) drug therapy
CPT/HCPCS: 49591; S2900; 00830; J7120; C1781; J2405; J3490

== ENCOUNTER → 2024-01-12 | Outpatient (CLI) | payer OTHER, SELFPAY ==
--- OUTSIDE RECORDS SUMMARY | 2024-01-12 10:48 | XMS RPT_ITS | CCD ---
Author Name Unknown Address [address] [place] [address] Organization [facility] Care Team Providers Care Spinning Frame Cleaner Name Role Phone Faheem MONTESINOS, Efewongbe Johny Primary Care Provider [phone] Manuel HUITRON/Riaz SINGLETARY Unavailable Pippa LAL, Wendy [...] Attending Unavailable OLEGHE, EFEWONGBE B Referring Unavailable SARAITRINIDAD Admitting Unavailable SARAITRINIDAD Attending Unavailable OLEGHE, EFEWONGBE [...] to drug 2 Nausea and Vomiting [facility] Medications Current Medications Medication Drug Class(es) Dates Sig (Normalized) Sig (Original) amLODIPine 10 mg oral tablet (3 sources) Dihydropyridine Calcium Channel Sara take 1 tablet by mouth once daily amLODIPine 10 MG tablet Take 10 mg by mouth daily. 0 Active bacitracin 0.5 unt/mg / polymyxin b 10 unt/mg topical ointment (2 sources) Polymyxin-class Antibacterial Start: 02-18-2022 bacitracin-cindi ymyxin b [id number] UNIT/GM Ointment Indications: Follow up , S/P [...] 37.15 kg/m2 Trinidad Weems MD Work Phone: [facility] 04-29-2022 07:57-0400 Body weight 138.44 kg Trinidad Weems MD Work Phone: [facility] 02-04-2022 11:34-0500 Body temperature 96.69 [degF] Trinidad Weesm MD Work Phone: [facility] 02-04-2022 11:34-0500 Diastolic blood pressure 94 mm[Hg] Trinidad Weems MD Work Phone: [facility] 02-04-2022 11:34-0500 Heart rate 130 /min Trinidad Weems MD Work Phone: [facility] 02-04-2022 11:34-0500 Respiratory rate 16 /min Trinidad Weems MD Work Phone: [facility] 02-04-2022 11:34-0500 Systolic blood pressure 152 mm[Hg] Trinidad Weems MD Work Phone: [facility] Encounters Encounter Date Encounter Type Care Provider Facility Start: 04-29-2022 ambulatory TRINIDAD WEEMS Facility :[facility] Start: 04-29-2022 End: 04-29-2022 Postop follow up visit related to original px Trinidad Weems MD Work Phone: [facility] [place] Procedures Date Procedure Procedure Detail Performing Clinician H/O: surgery S/P split thickness skin gra ft Trinidad Weems MD Work Phone: Plan of Treatment Date Care Activity Detail Author Start: 12-10-2022 Potassium [Moles/vol ume] in Serum or Plasma POTASSIUM [facility] Start: 07-30-2022 Influenza vaccination INFLUENZ A VACCINE (Season Ended) [facility] Start: 04-29-2022 End: 04-29-2022 Patient encounter procedure 04/29/2022 Office Visit Plastic Trinidad Yu MD [address] [place] [phone] [facility] [place] Start: 02-25-2022 End: 02-25-2022 Patient encounter procedure 02/25/2022 Office Visit Plastic Trinidad Yu MD [address] [phone] [facility]astic [facility] [place] Start: 09-10-2021 COVID-19 VACCINE (3 - Booster for Pfizer series) COVID-19 VACCINE (3 - Booster for Pfizer series) [facility] Start: 07-30-2021 Influenza vaccination INFLUENZA VACC INE (#1) [facility] Start: 2004 Third diphtheria, te tanus and acellular pertussis (DTaP) vaccination TDAP (ADULT) [facility] Start: 2003 Tetanus vaccination TETANUS [facility] Start: 2000 HIV screening HIV SCREENING DISCUSSION [facility] Start: 1985 Hepatitis C antibody , confirmatory test HEPATITIS C VIRUS SCREENING [facility] Immunizations Immunization Date Immunization Notes Care Provider Fa cility 04-10-2021 COVID-19 vaccine, MR GRIFFITHS, Pfizer, 0.3 ML Trinidad Weems MD Work Phone: [facility] 03-20-2021 COVID-19 vaccine, MR GRIFFITHS, Pfizer, 0.3 ML Trinidad Weems MD Work Phone: [facility] Payers Date Payer Category Payer Unknown [id number] 2021 Private Health Insurance [id number] 2018 Unknown [id number] 1985 Unknown [id number] 2.16 [id number] 1985 Unknown [id number] 2. [id number] 1985 Unknown [id number] 2.16 [id number] 1985 Unknown [id number] 2.16 [id number] 1985 Unknown [id number] 2.16 [id number] 1985 Unknown [id number] 2.16 [id number] 1985 Unknown [id number] 2.16. [id number] 1985 Unknown [id number] 2.16. 840.1.114963.3.579.2.594 1985 Unknown [id number] 2.16 840.1.858422.3.579.2.594 1985 Unknown [id number] 2.16. 840.1.954565.3.579.2.594 1985 Unknown [id number] 2.16. 840.1.336781.3.579.2.594 1985 Unknown [id number] 2.16. 840.1.663379.3.579.2.594 1985 Unknown [id number] 2.16. 840.1.965489.3.579.2.594 1985 Unknown [id number] 2.16. 840.1.080755.3.579.2.594 1985 Unknown [id number] 2.16. 840.1.665573.3.579.2.594 1985 Unknown [id number] 2.16. 840.1.512817.3.579.2.594 1985 Unknown [id number] 2.16. 840.1.849031.3.579.2.594 1985 Unknown [id number] 2.16. 840.1.269593.3.579.2.594 1985 Unknown [id number] 2.16. [id number] Social History Date Type Detail Facility Start: 12-10-2021 Tobacco smoking stat [facility] Never smoked tobacco [facility] Start: 12-10-2021 Tobacco use and exposure Smokeless tobacco non-user [facility] Start: 02-04-2022 End: 04-29-2022 Alcohol intake Lifetime non-drinker (finding) [facility] Start: 12-10-2021 History SDOH Alcohol Frequency 1 [facility] Start: 1985 Sex Assigned At Not on file [facility] Start: 02-09-2022 End: 02-19-2022 Exposure to SARS-CoV-2 (event) Unable to assess [facility] Start: 02-15-2022 End: 02-25-2022 Exposure to SARS-CoV-2 (event) Not sure [facility] Medical Equipment Procedure Code Equipment Code Equipment Origin al Text Equipment Identifier Dates Dressing Wound 5 x4in 2 Layer Matrix Bovine Collagen - [id number] Start: 01-23-2022 Goals Date Patient Goal [...] concerns A total of 10 minutes of ovzi-li-czwr time were spent with the patient, of which >50% were spent on counseling and coordination of care. documented in this encounter [facility] 03-18-2022 History of Present illness Narrative Formatting [...] 4-6 weeks documented in this encounter [facility] 02-04-2022 History of Present illness Narrative Formatting of this note might be differe nt from the original. Plastic Surgery Post-op Riaz Diop ([id number]) 36 y.o. male presenting for a post-op [...] walking boot documented in this encounter [facility] 11-08-2021 Note HNO ID: [id number] Author: Aleena Bose MD Service: ? Author [...] understanding. 3) CF testing Aleena Bose MD [facility] 10-31-2021 Note HNO ID: [id number] Author: Shayne Howe PA-C Service: ? Author Type: Physician Duplicating Machine Servicer Type: Progress Notes Filed: 10/31/2021 4:49 PM [...] in counseling Shayne Howe, ZOILA, [place], PA-C [facility] 03-03-2021 Note [facility] 03-03-2021 Note [facility] 02-19-2021 Note DATE OF SERVICE: INDICATION: Choledocholithiasis. POSTPROCEDURE DIAGNOSIS: Dilated bile duct at around 12 mm with multiple filling defects, clear post sphincterotomy, drainage of black bile. PROCEDURE: Informed consent was obtained after explaining the indications, the risks including perforation, bleeding, phlebitis, and medication reaction. MEDICATION: General anesthesia. DESCRIPTION OF PROCEDURE: Here@ Networks video therapeutic side view endoscope was advanced [...] up clinically. Referral for surgical consultation for [facility] PATIENT NAME: RIAZ DIOP [address] [place] MEDICAL REC #: [id number] [place] [address] ADMIT DATE: DISCHARGE DATE: GASTROENTEROLOGY REPORT ATTENDING PHY: Jacinto Macias MD cholecystectomy discussed with the patient and the . Jacinto Macias MD [id number] SSI File#: [id number] END OF DOCUMENT / CHANGE LOG FOLLOWS Last Edited By Elec. Signed By Jacinto Macias MDA Jacinto Macias MD #PATRICIOA on 06/29/2021 11:37 ET on 06/29/2021 11:37 ET Revision Number - 2 Verified/Reviewed by 06/29/21 [id number] DUSTY [facility] PATIENT NAME: RIAZ DIOP [address] 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 Malignant melanoma of skin of lower limb, including hip [facility] Diagnosis Malignant melanoma of right lower extremity including hip- Primary Malignant melanoma of skin of lower limb, including hip documented in this encounter [facility] Summary Purpose Family History No Family History [...] DATE CREATED AUTHOR AUTHOR'S ORGANIZ ATION 06/29/2021 [facility] DATE CREATED AUTHOR AUTHOR'S ORGANIZ ATION 02/19/2022 [facility] DATE CREATED AUTHOR AUTHOR'S ORGANIZ ATION 05/02/2022 [facility] Reason for Visit (unrecogniz ed section and content) Reason Comments Post Op Visit Care Teams (unrecognized sec tion and content) Spinning Frame Cleaner Relationship Specialty Start Date End Date Arminda Mayen MD [address] [place] [phone] PCP - General Internal Medicine 11/26/21 Riaz Jackson MB/HAYDER [address] [place] [phone] Referring Provider Hematology 11/26/21 Wendy Das RN Case Manager 12/30/21 Trinidad Weems MD [address] [place] [address] [address] [place] [address] Surgeon Plastic Surgery 01/02/22 Spinning Frame Cleaner Relationship Specialty Start Date End Date Arminda Mayen MD [address] [place] [phone] PCP - General Internal Medicine 11/26/21 Riaz Jackson MB/HAYDER [address] [place] [address] Referring Provider Hematology 11/26/21 Trinidad Weems MD [address] [facility] [address] [place] [address] Surgeon Plastic Surgery 01/02/22 FOR [...] BE BASED ON THE PRIMARY CLINICAL RECORDS. [facility] [employer] [facility]. provides no warranty or guarantee of the accuracy or completeness of information in this document.
[2024-01-12 12:29] LABS: Absolute Lymphocyte Count 1.62 X10^3/uL (0.83-4.51); Absolute Neutrophil Count 4.2 X10^3/uL (2.0-7.7); Basophil# 0.05 X10^3/uL; Basophil% 0.8 % (0-1); Eosinophils% 3.1 % (0-5); Lymphocyte # 1.62 X10^3/ul (0.83-4.51); Lymphocyte % 25.2 % (19-41); Mean Corp Hgb Conc 34.1 g/dL (32-36); Mean Corpuscular Volume 90.9 fL (80-94); Mean Platelet Vol. 10.6 fl (6.2-12.0); Monocyte# 0.37 X10^3/uL; Monocyte% 5.8 % (0-10); NRBC Flagged by Analyzer 0 % (0-5); Neutrophil # 4.15 X10^3/uL (2.7-7.7); Neutrophil % 64.5 % (47-70); Platelet Count 362 K/mm3 (150-450); RBC Distribution Width CV 12.5 % (11.6-14.6); RBC Distribution Width SD 41.3 fl (35.1-43.9); Red Blood Count 4.51 M/mm3 (4.6-6.2); White Blood Count 6.4 K/mm3 (4.4-11.0)
[2024-01-12 12:51] LABS: Anion Gap 7 (5-15); BUN 8 mg/dL (7-18); BUN/Creat Ratio 7.3 RATIO (10-20); Calcium,Total 8.9 mg/dL (8.5-10.1); Chloride 110 mmol/L (98-107); Creatinine, Serum 1.09 mg/dL (0.70-1.30); EST Glomerular Filtration Rate 80 mL/min (>60); Est Glom Filt Rate - Afr Amer 97 mL/min (>60); Glucose 112 mg/dL (74-106); Potassium 4.1 mmol/L (3.5-5.1); Sodium Level 144 mmol/L (136-145)
== END | disposition home or self-care (01) ==
LOC: BIMLAB 10:11
PROVIDERS: PCP Internal Medicine; Referring Provider Internal Medicine; Visit Provider Internal Medicine
DX: I10 Essential (primary) hypertension (principal)
CPT/HCPCS: 36415; 80048; 85025

== ENCOUNTER → 2024-02-18 | Outpatient (CLI) | payer OTHER, SELFPAY ==
--- NOTE | 2024-02-18 13:30 | RAD_ITS ---
INDICATION: abdominal pain -- UPRIGHT EXAMINATION/TECHNIQUE: X-RAY - XR Abdomen 1 View COMPARISON: Prior study dated: 02/18/2024 FINDINGS: BOWEL GAS PATTERN: Nonspecific gaseous colon with air-fluid levels. No bowel or stomach distention. FREE AIR: No evidence of free air. ORGANOMEGALY: Not seen. CALCIFICATIONS: No abnormal calcifications observed. LOWER CHEST: No acute pathology. BONES AND SOFT TISSUES: No acute pathology. RAD/Abdomen Single View IMPRESSION: Nonspecific gaseous colon with air-fluid levels could be due to mild ileus. Gas pattern is nonobstructive at this time. Electronically Signed: Jr Nation MD at 14:31 EDT ,
--- NOTE | 2024-02-18 13:30 | RAD_ITS ---
INDICATION: abdominal pain -- SUPINE EXAMINATION/TECHNIQUE: X-RAY - XR Abdomen 1 View COMPARISON: No relevant prior comparison study available FINDINGS: BOWEL GAS PATTERN: Non-obstructive. No bowel or stomach distention. FREE AIR: Not assessed on a single supine view. ORGANOMEGALY: Not seen. CALCIFICATIONS: No abnormal calcifications observed. LOWER CHEST: No acute pathology. BONES AND SOFT TISSUES: No acute pathology. Surgical clips in the right upper quadrant presumably from previous cholecystectomy. RAD/Abdomen Single View IMPRESSION: Non-obstructive bowel gas pattern. Electronically Signed: Jr Nation MD at 14:35 EDT ,
== END | disposition home or self-care (01) ==
LOC: MTRAD 13:30
PROVIDERS: PCP Internal Medicine; Referring Provider Physician Assistant; Visit Provider Physician Assistant
DX: R10.9 Unspecified abdominal pain (principal)
CPT/HCPCS: 74018

== ENCOUNTER → 2024-06-28 | Outpatient (CLI) | payer OTHER, SELFPAY ==
[2024-06-28 13:03] LABS: Anion Gap 6 (5-15); BUN 11 mg/dL (7-18); BUN/Creat Ratio 10.8 RATIO (10-20); Calcium,Total 9.3 mg/dL (8.5-10.1); Chloride 107 mmol/L (98-107); Creatinine, Serum 1.02 mg/dL (0.70-1.30); EST Glomerular Filtration Rate 87 mL/min (>60); Est Glom Filt Rate - Afr Amer 105 mL/min (>60); Glucose 100 mg/dL (74-106); Potassium 3.7 mmol/L (3.5-5.1); Sodium Level 140 mmol/L (136-145)
== END | disposition home or self-care (01) ==
LOC: BIMLAB 10:14
PROVIDERS: PCP Internal Medicine; Referring Provider Internal Medicine; Visit Provider Internal Medicine
DX: I10 Essential (primary) hypertension (principal)
CPT/HCPCS: 36415; 80048

== ENCOUNTER 2025-01-31 14:50 | Emergency (ER) | payer BC, SELFPAY ==
[2025-01-31 14:51] VITALS: BP 182/88; PULSE 89; RESP 16; TEMP 36.4; O2SAT 97; BMI 38.9
--- NOTE | 2025-01-31 16:10 | EX.ED.DYSGE1 ---
HPI History of Present Illness Chief Complaint: Cellulitis Detail of Chief Complaint: Rash on his neck since Wednesday. Informant: patient Onset/Context/Timing Onset: Days Context: Gradual Onset Timing: Continuous Current Severity: Mild Maximum Severity: Mild Narrative Narrative: 39-year-old male past medical history of congenitally 1 kidney and hypertension. Said since Wednesday night he had a mild rash on his neck both anterior and left side. He has had cellulitis before. He started taking his antibiotics doxycycline twice a day Keflex 4 times a day and is mildly getting better. There is mild itching is never had an allergic reaction 4. The rash is not on his back, chest, abdomen or upper or lower extremities. He denies any swelling of his lips or tongue. Prior similar symptoms: Yes Recent Illness/Hospitalization: No PFSH [facility] Medical History Localized skin mass, lump, or swelling Fatty liver CPAP (continuous positive airway pressure) dependence Non-smoker History of edema Diarrhea Discoloration of skin Venous insufficiency of both lower extremities TARAS (iron deficiency anemia) Elevated random blood glucose level DORENE (obstructive sleep apnea) Fatty infiltration of liver Sleep apnea Hypersomnolence Localized swelling of right foot Obesity (BMI 30-39.9) Rash Congenital absence of left kidney Gallstones Asthma Shoulder pain Hypertension (Unknown) Home Medications ?Medication ?Instructions ?Recorded ?Last Taken ?Type loratadine 10 mg capsule 10 mg PO DAILY ALLERGIES 02/13/21 Unknown History mupirocin 2 % topical ointment 1 applic topical BID #15 grams 06/28/24 Unknown Rx triamterene 37.5 1 tab PO QAM BLOOD PRESSURE #90 11/08/24 Unknown Rx mg-hydrochlorothiazide 25 mg tablet tabs valsartan 80 mg tablet 80 mg PO DAILY BLOOD PRESSURE #90 11/08/24 Unknown Rx tabs prednisone 20 mg tablet 40 mg (2 x 20 mg) PO DAILY 2 days 01/31/25 Unknown Rx #4 tabs Allergy/AdvReac Type Severity Reaction Status Date / Time shellfish derived Allergy Severe Nausea/Vom/ Verified 01/31/25 14:53 Diarrhea Family History Mother Asthma Cancer basal cell Surgical History History of umbilical hernia repair Hx of appendectomy Hx of foot surgery History of cholecystectomy History of wisdom tooth extraction History of hernia repair Social History household members: spouse Smoking Status: Never smoker alcohol intake: never substance use type: does not use what type of physical activity do you participate in: bicycling frequency: 1-2 times per week ROS ROS ED ROS Narrative Denies recent illness. No fever or chills. No vomiting or diarrhea. Constitutional Constitutional ED: Denies chills or fever(s) Eyes Eyes: Denies blurry vision ENT ENT ED: Denies ear pain Cardiovascular Cardiovascular: Denies chest pain Respiratory/Chest Respiratory/Chest: Denies cough or dyspnea Gastrointestinal Gastrointestinal: Denies abdominal pain Genitourinary Genitourinary ED: Denies dysuria or hematuria Musculoskeletal Musculoskeletal: Denies arthralgias Integumentary Reports rash; Denies abscess or Abrasions Neurologic Neurologic: Denies headache(s) Psychiatric Psychiatric: Denies anxiety Endocrine Endocrinology: Denies cold intolerance Hematologic/Lymphatic Hematologic/Lymphatic: Reports none Allergic/Immunologic Allergic/Immunologic ED: Denies mouth swelling, tongue swelling or urticaria EXAM Physical Exam Narrative Exam Narrative: Well-appearing 39-year-old male sitting upright in hallway chair due to current volume. Vital signs are stable afebrile. He does not look septic dietary and distress. H EENT exam she is very active lady. Tremors are intact. No facial droop. No tongue or lip swelling. Neck nontender. He has a small area in the anterior aspect of the base of his neck approximately inch wide and 2 inches long that is red. Is not tender. There is no folliculitis. No pus. Could be consistent with an early cellulitis or also an allergic reaction. It does not spencer. Patient is a second area on the left lateral part of his neck approximately an inch wide and 2 inches long also. There is no lymphadenopathy. There is sloughing of skin. Lungs clear to auscultation bilaterally. Heart regular rhythm no murmur. Abdomen soft nontender. Chest and abdomen there is no rash. Back there is no rash. Moving all 4 extremities. Nontender. No edema. No rash. No petechiae or purpura. Normal strength. Neurologically is awake and alert no focal motor deficits. Const Vital Signs: 01/31/25 14:51 Temperature 97.6 F L Temperature Source Oral Pulse Rate 89 Respiratory Rate 16 Blood Pressure 182/88 H Blood Pressure Mean 119 Pulse Ox 97 Oxygen Delivery Method Room Air Positive well nourished and well developed; Negative for cachectic, contractures or unkempt General Appearance ED: well developed and NAD; Negative for unkempt, cachectic, contractures, cyanotic, diaphoretic or pallor Nutritional Appearance: Negative for cachectic HEENT Reports moist mucous membranes Negative for trauma or tenderness Eyes PERRL and EOMs intact bilaterally General Eye ED: Negative for pale conjunctiva or scleral icterus Neck no lymphadenopathy, supple and no JVD Neck Narrative: Mild rash base of the anterior neck and left lateral neck. Each area is about an inch wide about 2 inches long. It does not spencer. There is no significant edema. Is not tender. This could either be an early cellulitis or allergic reaction. No lymphadenopathy. Chest Wall inspection of chest normal and palpation of chest normal Resp normal respiratory effort and clear to auscultation bilaterally Cardio regular rate, regular rhythm, S1 normal heart sound, S2 normal heart sound and no murmurs GI normal to inspection, nondistended, normoactive bowel sounds, non-tender, non-distended and no masses Palpation: soft; Negative for tender, guarding or rebound tenderness present Back/Spine no CVA tenderness General Back: Negative for CVA tenderness Cervical Spine: Negative for cervical spine tenderness Thoracic Spine / Upper Back: Negative for thoracic spinal tenderness or paraspinal muscle tenderness Lumbar Spine / Lower Back: Negative for lumbar spinal tenderness Extremity normal to inspection General Extremety ED: Negative for edema or tenderness General Extremity: Negative for edema Neuro oriented x3 and CN's II-XII intact bilaterally Sensorium / Orientation: alert; Negative for orientation impaired, lethargic or stuporous Motor Exam: strength 5/5 throughout Psych mental status grossly normal Appearance: Negative for unkempt Skin No no rashes or lesions noted, no wounds and skin turgor normal Skin Narrative: Very mild rash on his neck. Anterior aspect about an inch wide to reach as long. Left lateral aspect about it and tried to adjust longer. Consistent with either mild cellulitis or allergic reaction. There is no lymphadenopathy. There is no pus or abscess. There is no sloughing of skin. General Skin Exam: elasticity normal; Negative for jaundice or pallor Lesions: No lesion noted Rashes: rashes noted Trauma: Negative for abrasion Wounds: Negative for wounds noted MDM MDM MDM Narrative Medical decision making narrative: Healthy 39-year-old male history of cellulitis. States she been getting mildly better over the last several days. Will continue on the Keflex and doxycycline there is no reason to change antibiotic that should have more than covered. If she has had some mild allergic reaction again meters of prednisone here and I will be for 2 more days. Patient knows to follow-up if not improving or return if worse. Discharge Plan Triage Chief Complaint: Cellulitis ED Provider: Ruiz Schwartz Dx/Rx/DC Orders Clinical Impression: Cellulitis, Rash, skin Instructions: ED Cellulitis Prescriptions: New prednisone 20 mg tablet 40 mg PO DAILY 2 Days Qty: 4 0RF No Action mupirocin 2 % ointment 1 applic topical BID Qty: 15 1RF loratadine 10 MG capsule 10 mg PO DAILY triamterene-hydrochlorothiazid 37.5-25 mg tablet 1 tab PO QAM Qty: 90 0RF valsartan 80 mg tablet 80 mg PO DAILY Qty: 90 0RF Primary Care Provider: Arminda Mayen Referrals: Arminda Mayen MD [Primary Care Provider] - 3-5 Days if not improving Activity Restrictions/Additional Instructions: Most likely early and mild cellulitis. Continue both antibiotics with doxycycline and Keflex that should get better. In case it is a mild allergic reaction due to the itching I will put you on prednisone 40 mg a day for 2 more days we gave you a dose here. Take it again tomorrow and Wednesday. This should progressively start getting better if not follow-up to have further evaluation. Print Language: Danish Disposition Disposition: Home, Self Care
[2025-01-31] MEDS: predniSONE 20 MG Tablet 40 MG PO (16:34)
[2025-01-31 17:14] LABS: Absolute Lymphocyte Count 2.14 X10^3/uL (0.83-4.51); Absolute Neutrophil Count 5.4 X10^3/uL (2.0-7.7); Basophil# 0.09 X10^3/uL; Basophil% 1.1 % (0-1); Eosinophil# 0.17 X10^3/uL; Eosinophils% 2.1 % (0-5); Hematocrit 45.5 % (40-54); Hemoglobin 16.2 g/dL (13.0-16.5); Lymphocyte # 2.14 X10^3/ul (0.83-4.51); Lymphocyte % 25.8 % (19-41); Mean Corp Hgb Conc 35.6 g/dL (32-36); Mean Corpuscular Hgb 31.3 pg (27.0-32.0); Mean Corpuscular Volume 87.8 fL (80-94); Monocyte# 0.45 X10^3/uL; Monocyte% 5.4 % (0-10); NRBC Flagged by Analyzer 0 % (0-5); Neutrophil # 5.42 X10^3/uL (2.7-7.7); Neutrophil % 65.5 % (47-70); Platelet Count 455 K/mm3 (150-450); RBC Distribution Width CV 12.2 % (11.6-14.6); RBC Distribution Width SD 39.1 fl (35.1-43.9); Red Blood Count 5.18 M/mm3 (4.6-6.2); White Blood Count 8.3 K/mm3 (4.4-11.0)
[2025-01-31 17:37] LABS: Anion Gap 14 (5-15); BUN 12 mg/dL (4-19); BUN/Creat Ratio 10.6 RATIO (10-20); Calcium,Total 9.5 mg/dL (7.6-11.0); Carbon Dioxide 21.4 mmol/L (21.0-32.0); Chloride 101 mmol/L (98-108); Creatinine, Serum 1.13 mg/dL (0.70-1.20); EST Glomerular Filtration Rate 85 (>60); Estimated Creatinine Clearance 136.73 ml/min (50-250); Glucose 99 mg/dL (70-99); Potassium 3.6 mmol/L (3.3-5.1); Sodium Level 137 mmol/L (133-145)
[2025-01-31 18:37] VITALS: BP 165/85; PULSE 85; RESP 16; TEMP 36.4; O2SAT 97
== END 2025-01-31 18:38 | disposition home or self-care (01) ==
PROVIDERS: Emergency Medicine; Emergency Provider Emergency Medicine; PCP Internal Medicine; Visit Provider Emergency Medicine
DX: L03.221 Cellulitis of neck (principal); I10 Essential (primary) hypertension; Q60.0 Renal agenesis, unilateral; Z79.899 Other long term (current) drug therapy
CPT/HCPCS: 80048; 85025; 99282

== ENCOUNTER 2025-10-09 19:01 | Inpatient (IN) | payer BC, SELFPAY ==
[2025-10-09] VITALS (10 sets, daily range): BP systolic 96–137; BP diastolic 46–77; PULSE 109–138; RESP 14–28; TEMP 37.7–38.1; O2SAT 97–100; BMI 40.0; BMI 39.6
--- NOTE | 2025-10-09 19:19 | EKG12_ITS ---
Test Reason : DYSRHYTHMIA Blood Pressure : */* mmHG Vent. Rate : 122 BPM Atrial Rate : 122 BPM P-R Int : 184 ms QRS Dur : 86 ms QT Int : 298 ms P-R-T Axes : 51 27 59 degrees QTcB Int : 424 ms Sinus tachycardia Possible Left atrial enlargement Borderline ECG Confirmed by Suresh Ratliff ([id number]), manager editorial GERMÁN YEAGER ([id number]) on 10/10/2025 10:38:41 AM Referred By: Confirmed By: Suresh Ratliff
--- NOTE | 2025-10-09 19:19 | CT_ITS ---
PROCEDURE: ABDOMEN/PELVIS W IV CONT ONLY 10/09/2025 REASON FOR EXAM: NAUSEA, VOMITING TECHNIQUE: Procedure Code: [id number] Modality: CT Procedure: ABDOMEN/PELVIS W IV CONT ONLY Coronal and Sagittal reconstruction series were provided. CONTRAST: Isovue 370 VOLUME: 100 mL One or more dose reduction techniques were used (e.g., Automated exposure control, adjustment of the mA and/or kV according to patient size, use of iterative reconstruction technique. RADIATION DOSE SUMMARY: CTDlvol: 19.95, 24.16 mGy DLP: 1465 mGycm COMPARISON: 11/16/2023 FINDINGS: LUNG BASES: No basilar airspace consolidation or pleural effusion. LIVER: Unremarkable. GALLBLADDER: Prior cholecystectomy. BILE DUCTS: No ductal dilation. PANCREAS: Unremarkable. SPLEEN: Unremarkable. ADRENAL GLANDS: Unremarkable. 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 Normal right renal enhancement. No hydronephrosis or hydroureter. STOMACH AND BOWEL: No obstruction or perforation. No wall thickening. No CT evidence of colitis or acute diverticulitis. APPENDIX: Surgically absent. RETRO/PERITONEUM: No free fluid. No free air. LYMPH NODES: Multiple mildly prominent right iliac chain and inguinal lymph nodes with adjacent stranding, which is new since the prior study. PELVIC ORGANS: Unremarkable urinary bladder, prostate gland and right seminal vesicles. It appears that the left seminal vesicles are absent. VASCULATURE: No aortic aneurysm. ABDOMINAL WALL AND SOFT TISSUES: Surgical clips in the right inguinal region. BONES: No fracture or suspicious osseous abnormality. CT/Abdomen/Pelvis W IV Cont ONLY IMPRESSION: 1. Mildly prominent left iliac and inguinal lymph nodes with adjacent strandin g, suggesting acute lymphadenitis. 2. No signs of bowel inflammation, perforation or obstruction. 3. 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 In the absence of prior surg alivia, this is likely congenital in etiology. Reading Location: [id number]
--- NOTE | 2025-10-09 19:23 | US_ITS ---
PROCEDURE: VENOUS DUPLEX IMAG/LIMITED/UNI 10/09/2025 REASON FOR EXAM: Right lower extremity swelling. TECHNIQUE: Procedure Code: USVDUL Modality: US Procedure: VENOUS DUPLEX IMAG/LIMITED/UNI FINDINGS: There is no intraluminal echogenicity to suggest the presence of a deep venous thrombosis. Appropriate respiratory variation, augmentation and venous compression is noted. US/Venous Duplex Imag/Limited/Uni IMPRESSION: No acute occlusive deep vein thrombosis. Reading Location: [facility]
--- OUTSIDE RECORDS SUMMARY | 2025-10-09 19:26 | XMS RPT_ITS | CCD ---
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 Name Role Phone Faheem MONTESINOS, Drew Mcclain Primary Care Provider Manuel HUITRON/CHBRiaz Unavailable Pippa LAL, Wendy Unavailable Unavailable Trinidad Weems MD Unavailable SELF, SELF Referring Unavailable PUCKETT LINETTE Attending Unavailable OLEGHE, EFEWONGBE B Primary Care Unavailable TRINIDAD WEEMS Referring Unavailable OLEGHE, EFEWONGBE B Primary Care Unavailable TRINIDAD WEEMS Attending Unavailable OLEGHE, EFEWONGBE B Primary Care Unavailable PUCKETT LINETTE Referring Unavailable PUCKETT LINETTE Attending Unavailable OLEGHE, EFEWONGBE B Primary Care Unavailable PUCKETT LINETTE Admitting Unavailable SELF, SELF Referring Unavailable PUCKETT LINETTE Attending Unavailable OLEGHE, EFEWONGBE B Referring Unavailable TRINIDAD WEEMS Admitting Unavailable TRINIDAD WEEMS Attending Unavailable OLEGHE, EFEWONGBE [...] Unavailable OLEGHE, EFEWONGBE B Primary Care Unavailable BINLEONEL JOSE C Referring Unavailable BINLEONEL JOSE C Attending Unavailable OLEGHE, EFEWONGBE B Primary Care Unavailable PUCKETT LINETTE Admitting Unavailable BINZEL, JOSE C Referring Unavailable BINZEL, JOSE C Attending Unavailable OLEGHE, EFEWONGBE B Primary Care Unavailable SARAI, TRINIDAD Attending Unavailable OLEGHE, EFEWONGBE B Primary Care Unavailable SELF, SELF Referring Unavailable OLEGHE, EFEWONGBE B Referring Unavailable SARAI, TRINIDAD Attending Unavailable OLEGHE, EFEWONGBE B Primary Care Unavailable OLEGHE, EFEWONGBE B Primary Care Unavailable SARAI, TRINIDAD Attending Unavailable SELF, SELF Referring Unavailable OLEGHE, EFEWONGBE B Primary Care Unavailable SARAI, TRINIDAD Attending Unavailable SELF, SELF Referring Unavailable OLEGHE, EFEWONGBE B Referring Unavailable SARAI, TRINIDAD Attending Unavailable SARAI, TRINIDAD Admitting Unavailable OLEGHE, EFEWONGBE B Primary Care Unavailable OLEGHE, EFEWONGBE B Primary Care Unavailable OLEGHE, EFEWONGBE B Referring Unavailable SARAI, TRINIDAD Admitting Unavailable SARAI, TRINIDAD Attending Unavailable Dr. Drew Mayen Primary Care Provider [phone] Dr. Flynn North Attending Provider Dr. Drew Mayen Primary Care Provider [phone] Dr. Drew Mayen Attending Provider [phone] Dr. Drew Mayen Referring Provider [phone] Dr. Flynn North Attending Provider Dr. Antonio Ferguson Emergency Provider Dr. Suzi Castaneda Admit Provider Dr. Suzi Castaneda Other Provider Dr. Miriam Johnson Attending Provider Dr. Miriam Johnson Other Provider Dr. Gatito Chase Other Provider Dr. Drew Mayen Primary Care Provider [phone] Dr. Drew Mayen Attending Provider [phone] Dr. Drew Mayen Referring Provider Dr. Suzi Castaneda Referring Provider Biedenharn, PA Elzbieta Attending Provider Dr. Antonio Nava Attending Provider [phone] Dr. Drew Mayen Primary Care Provider [phone] Dr. Drew Mayen Attending Provider [phone] Dr. Drew Mayen Referring Provider [phone] BO Dietz Attending Provider [phone] Dr. Antonio Nava Attending Provider [phone] BO Dietz Referring Provider [phone] Dr. Drew Mayen Primary Care Provider [phone]) Dr. Drew Mayen Attending Provider [phone] Dr. Drew Mayen Referring Provider [phone] Dr. Antonio Ferguson Emergency Provider Dr. Trinidad Nicolas Admit Provider Dr. Trinidad Nicolas Other Provider XIOMY Cordero Attending Provider Dr. Drew Mayen Primary Care Provider [phone] Dr. Trinidad Nicolas Attending Provider EKTA CorderoC Joann Attending Provider Dr. Trinidad Nicolas Referring Provider Dr. Drew Mayen Primary Care Provider [phone] Dr. Antonio Ferguson Emergency Provider Dr. Trinidad Nicolas Admit Provider Dr. Trinidad Nicolas Attending Provider Dr. Trinidad Nicolas Other Provider BO Cordero-C Joann Attending Provider Dr. Trinidad Nicolas Referring Provider Dr. Drew Mayen Attending Provider [phone] Dr. Drew Mayen Referring Provider [phone] BO Lincoln Attending Provider [phone]) Drew Mayen MD Primary Care Provider [phone] FAHEEM EFEWONGBE B Primary Care Unavailable Faheem MONTESINOS, Dr. Hilliard Primary Care Provider Efren MONTESINOS, Dr. Melchor Attending Provider Efren MONTESINOS, Dr. Melchor Emergency Provider Faheem MONTESINOS, Dr. Hilliard Referring Provider [phone]) Telly Lincoln Attending Provider [phone] Faheem MONTESINOS, Dr. Hilliard Attending Provider [phone]) Faheem MONTESINOS, Dr. Hilliard Primary Care Provider Faheem MONTESINOS, Dr. Hilliard Referring Provider [phone] Oleluciae, Efewongbe Primary Care Unavailable Telly Lincoln Attending Unavailable Oleghe, Efewongbe Referring Unavailable Oleghe, Efewongbe Referring Unavailable Oleghe, Efewongbe Attending Unavailable Oleghe, Efewongbe Primary Care Unavailable Oleghe, Efewongbe Primary Care Unavailable Ruiz Schwartz Attending Unavailable Oleghe, Efewongbe Referring Unavailable Oleghe, Efewongbe Attending Unavailable Oleghe, Efewongbe Primary Care Unavailable Allergies Allergy Classification Reported Allergen(s) Allergy Type Date of Onset Reaction(s) Facility (3 sources) Shellfish-Deriv ed Products Propensity to adverse reactions to drug 2 Nausea and Vomiting [facility] (12 sources) Shellfish; Translations: [shellfish derived] Allergy to substance 2 GI Upset [facility] Medications Current Medications Medication Drug Class(es) Dates Sig (Normalized) Sig (Original) amoxicillin 875 mg oral tablet (1 source) Penicillin-class Antibacterial Start: 05-19-2024 End: 05-26-2024 take 1 tablet by mouth twice daily amoxicillin (AMOXIL) 875 mg tablet Indications: Acute otitis media, right Take 1 tablet by mouth two times a day for 7 days. 14 tablet 0 05/19/2024 05/26/2024 Active bacitracin 0.5 unt/mg / polymyxin b 10 unt/mg topical ointment (2 sources) Polymyxin-class Antibacterial Start: 02-18-2022 bacitracin-polymy roula b [id number] UNIT/GM Ointment Indications: Follow up , S/P split thickness skin graft Apply nickel size amount to Xeroform and place on right lower extremity skin graft. Change this once a day 30 g 0 02/18/2022 Active loratadine 10 mg oral capsule (18 sources) Start: 02-13-2021 take 1 capsule by mouth once daily Loratadine 10 MG capsule Active 10 mg PO DAILY February 13, 2021 12:00am ALLERGIES Completed/Discontinued Medications Medication Drug Class(es) Dates Sig (Normalized) Sig (Original) amLODIPine 10 mg oral tablet (20 sources) Dihydropyridine Calcium Channel Sara Start: 09-12-2021 End: 03-08-2023 take 1 tablet by mouth once daily Amlodipine 10 mg tablet Discontinued 10 mg PO DAILY 90 December 14, 2022 12:49pm March 08, 2023 11:51am Start: 08-18-2021 End: 09-12-2021 take 1 tablet by mouth once daily Amlodipine 5 mg tablet Discontinued 5 mg PO DAILY 30 August 18, 2021 12:00am September 12, 2021 11:30am amoxicillin 875 mg / clavulanate 125 mg oral tablet (14 sources) Penicillin-class Antibacterial Start: 09-30-2019 End: 10-11-2019 Amoxicillin-Pot Clavulanate 875-125 mg tablet Discontinued 1 {tbl} PO Q12H 20 10 September 30, 2019 12:00am October 09, 2019 1:00am October 11, 2019 1:07am Start: 09-30-2019 End: 10-11-2019 take 1 tablet by mouth every twelve hours Amoxicillin-Pot Clavulanate Discontinued 1 TABLET PO Q12H 20 September 30, 2019 12:00am October 11, 2019 1:07am azithromycin 250 mg oral tablet (14 sources) Macrolide Antimicrobial Start: 11-30-2017 End: 12-05-2017 take 2 tablets by mouth once daily, then take 1 tablet by mouth once daily Azithromycin (Zithromax Z-Phillip) 250 mg tablet Discontinued 250 mg PO .COMPLEX 6 5 0 November 30, 2017 1:00am December 04, 2017 1:00am December 05, 2017 1:07am Acute pharyngitis, unspecified 2 250 mg tabs on first day then 1 250mg tab daily next 4 days benzonatate 100 mg oral capsule (14 sources) Non-narcotic Antitussive Start: 11-30-2017 End: 12-07-2017 take 1 capsule by mouth every eight hours as needed for cough Benzonatate 100 mg capsule Discontinued 100 mg PO Q8H as needed for cough 30 0 November 30, 2017 1:00am December 07, 2017 10:17am cephalexin 500 mg oral capsule (20 sources) Cephalosporin Antibacterial Start: 07-09-2023 End: 07-16-2023 take 1 capsule by mouth every six hours Cephalexin 500 mg capsule Discontinued 500 mg PO EVERY 6 HOURS 28 7 0 July 09, 2023 1:32pm July 15, 2023 12:00am July 16, 2023 12:03am Start: 06-01-2023 End: 06-10-2023 take 1 capsule by mouth every six hours Cephalexin 500 mg capsule Discontinued 500 mg PO EVERY 6 HOURS 12 3 0 June 07, 2023 2:04pm June 09, 2023 12:00am June 10, 2023 12:04am Start: 01-28-2022 End: 02-04-2022 take 2 capsules by mouth every twelve hours cephALEXin 500 MG capsule Indications: Malignant melanoma of right lower extremity including hip Take 2 capsules by mouth every 12 hours for 7 days. 28 capsule 0 01/28/2022 02/04/2022 doxycycline monohydrate 100 mg oral capsule (20 sources) Tetracycline-class Drug Start: 07-09-2023 End: 07-16-2023 take 1 capsule by mouth twice daily Doxycycline Monohydrate 100 mg capsule Discontinued 100 mg PO TWICE A DAY 14 7 0 July 09, 2023 1:32pm July 15, 2023 12:00am July 16, 2023 12:03am Start: 11-24-2022 End: 03-08-2023 take 1 capsule by mouth twice daily in the evening Doxycycline Monohydrate 100 mg capsule Discontinued 100 mg PO TWICE A DAY 15 0 November 24, 2022 1:00am March 08, 2023 11:06am start on 11/24/22 in the evening famotidine 20 mg oral tablet (2 sources) Histamine-2 Receptor Antagonist Start: 02-07-2025 End: 05-09-2025 take 1 tablet by mouth twice daily Famotidine 20 mg tablet Discontinued 20 mg PO TWICE A DAY 20 0 February 07, 2025 12:00am May 09, 2025 2:35pm ferrous sulfate 325 mg oral tablet (13 sources) Start: 11-24-2022 End: 10-11-2023 take 1 tablet by mouth twice daily Ferrous Sulfate 325 mg (65 mg iron) tablet Discontinued 325 mg PO TWICE A DAY 60 0 November 24, 2022 1:00am October 11, 2023 9:41am gabapentin 100 mg oral capsule (1 source) Anti-epileptic Agent Start: 01-12-2022 End: 02-18-2022 take 1 capsule by mouth three times daily gabapentin (Neurontin) 100 MG capsule Take 1 capsule by mouth 3 times daily. 42 capsule 1 01/12/2022 02/18/2022 Discontinued (Therapy completed) hydroCHLOROthiazide 12.5 mg oral tablet (15 sources) Thiazide Diuretic Start: 10-07-2021 End: 05-19-2024 take 1 tablet by mouth once daily in the morning Hydrochlorothiazide 12.5 mg tablet Discontinued 12.5 mg PO EVERY MORNING 30 October 07, 2021 1:00am November 05, 2021 10:38am hydroCHLOROthiazide 25 mg / triamterene 37.5 mg oral tablet (20 sources) Potassium-spari ng Diuretic, Thiazide Diuretic Start: 03-08-2023 End: 02-07-2025 Triamterene-Hydrochlor othiazid 37.5-25 mg tablet Discontinued 1 {tbl} PO EVERY MORNING November 08, 2024 9:20am February 07, 2025 2:09pm BLOOD PRESSURE Start: 03-08-2023 End: 07-09-2023 take 1 tablet by mouth once daily in the morning Triamterene-Hydrochlorothiazid Active 1 TABLET PO EVERY MORNING July 09, 2023 1:29pm Start: 08-15-2021 End: 08-18-2021 Triamterene-Hydrochlorothiaz id 37.5-25 mg tablet Discontinued 1 {tbl} PO EVERY MORNING 30 August 15, 2021 12:00am August 18, 2021 8:47am Start: 08-15-2021 End: 08-18-2021 take 1 tablet by mouth once daily in the morning Triamterene-Hydrochlorothiazid Discontin ued 1 TABLET PO EVERY MORNING August 15, 2021 12:00am August 18, 2021 8:47am take 1 capsule by mouth once daily in the morning triamterene-hydrochlorothiazide 37.5-25 MG per capsule Take 1 capsule by mouth daily every morning. 0 Active ketoconazole 20 mg/ml topical cream (2 sources) Azole Antifungal Start: 05-09-2025 End: 07-11-2025 Ketoconazole 2 % cream Discontinued 1 NMA TOPICAL TWICE A DAY 60 May 09, 2025 12:00am July 11, 2025 8:18am mecobalamin 1 mg chewable tablet (12 sources) Start: 05-30-2023 End: 10-11-2023 Mecobalamin (Vitamin B12) (B12 Active) 1,000 mcg tablet,chewable Discontinued 1000 ug PO DAILY May 30, 2023 12:00am October 11, 2023 9:41am methylPREDNISolone 4 mg oral tablet (14 sources) Corticosteroid Start: 11-30-2017 End: 12-05-2017 take 1 tablet by mouth once Methylprednisolone (Medrol (Phillip)) 4 mg tablets,dose pack Discontinued 4 mg PO per package directions 21 5 0 November 30, 2017 1:00am December 04, 2017 1:00am December 05, 2017 1:07am Mupirocin (2 sources) RNA Synthetase Inhibitor Antibacterial Start: 06-28-2024 End: 02-07-2025 Mupirocin 2 % ointment Discontinued 1 NMA TOPICAL TWICE A DAY 15 June 28, 2024 12:00am February 07, 2025 1:40pm Start: 06-28-2024 End: 02-07-2025 Mupirocin 2 % ointment Disco ntinued 1 NMA TOPICAL TWICE A DAY June 28, 2024 12:00am February 07, 2025 1:40pm oxyCODONE hydrochloride 5 mg oral tablet (13 sources) Opioid Agonist Start: 01-10-2024 End: 01-19-2024 take 1 tablet by mouth every six hours as needed for pain Oxycodone 5 mg tablet Discontinued 5 mg PO EVERY 6 HOURS as needed for pain 10 3 0 January 10, 2024 January 19, 2024 4:04pm Umbilical hernia without obstruction and without gangrene Umbilical hernia without obstruction or gangrene Start: 11-17-2023 End: 12-06-2023 take 1 tablet by mouth every six hours as needed for pain Oxycodone 5 mg Tablet Discontinued 5 mg PO EVERY 6 HOURS NEEDED as needed for Pain Score 6-10 10 3 0 November 17, 2023 December 06, 2023 4:01pm Acute appendicitis Unspecified acute appendicitis Start: 01-12-2022 End: 02-10-2022 oxyCODONE 5 MG tablet Indica tions: Malignant melanoma of right lower extremity including hip Take 1 tablet on Wednesday, Wednesday and Wednesday approximately 20 minutes prior to vac change. 8 tablet 0 01/12/2022 02/10/2022 Discontinued (Therapy completed) predniSONE 20 mg oral tablet (2 sources) Start: 01-31-2025 End: 02-07-2025 take 2 tablets by mouth once daily Prednisone 20 mg tablet Discontinued 40 mg PO DAILY 4 2 0 January 31, 2025 1:00am February 07, 2025 1:40pm traMADol hydrochloride 50 mg oral tablet (1 source) Opioid Agonist Start: 01-13-2022 End: 02-10-2022 take 1 tablet by mouth every six hours as needed for pain traMADol 50 MG tablet Indications: Post-operative pain Take 1 tablet by mouth every 6 hours as needed for Severe Pain for up to 7 days. 28 tablet 0 01/13/2022 02/10/2022 Discontinued (Therapy completed) valACYclovir 1000 mg oral tablet (14 sources) Herpesvirus Nucleoside Analog DNA Polymerase Inhibitor, Herpes Simplex Virus Nucleoside Analog DNA Polymerase Inhibitor, Herpes Zoster Virus Nucleoside Analog DNA Polymerase Inhibitor Start: 07-17-2021 End: 08-15-2021 Valacyclovir 1 gram tablet Discontinued 1000 mg PO Q8H 21 0 July 17, 2021 12:00am August 15, 2021 10:51am Start: 07-17-2021 End: 08-15-2021 take 1000 mg by mouth every eight hours Valacyclovir Discontinued 1000 MG PO Q8H July 17, 2021 12:00am August 15, 2021 10:51am valsartan 80 mg oral tablet (20 sources) Angiotensin 2 Receptor Sara Start: 07-09-2023 End: 02-07-2025 take 1 tablet by mouth once daily Valsartan 80 mg tablet Discontinued 80 mg PO DAILY 90 0 November 08, 2024 9:21am February 07, 2025 2:09pm BLOOD PRESSURE Start: 06-07-2023 End: 07-09-2023 take 0.5 tablet by mouth once daily, then take 1 tablet by mouth once daily Valsartan 80 mg tablet Discontinued 80 mg PO DAILY 30 June 07, 2023 12:00am July 09, 2023 1:33pm Take 1/2 tablet daily x 3 days and increase to 1 tablet daily Problems Active Problems Problem Classification Problem Date Documented Da te Episodic/Chronic Abdominal hernia (12 sources) Umbilical hernia; Translations: [Umbilical hernia without obstruction or gangrene] 12-06-2023 Episodic Abdominal pain (15 sources) Abdominal pain; Translations: [Unspecified abdominal pain] 11-16-2023 Episodic Allergic reactions (5 sources) Allergic urticaria; Translations: [Allergic urticaria] 02-07-2025 Episodic Appendicitis and other appendiceal conditions (14 sources) Acute appendicitis; Translations: [Unspecified acute appendicitis] 11-16-2023 Episodic Asthma (20 sources) Exacerbation of asthma; Translations: [Unspecified asthma with (acute) exacerbation] 11-30-2017 Chronic Comment on above: CHILD Biliary tract disease (17 sources) Gallstone; Translations: [Calculus of gallbladder without cholecystitis without obstruction] Onset: 12-09-2021 12-09-2021 Episodic Deficiency and other anemia (14 sources) Anemia; Translations: [Anemia, unspecified] 11-23-2022 Episodic Deficiency and other anemia (11 sources) Anemia, unspecified; Translations: [Anemia, unspecified] Episodic Deficiency and other anemia (12 sources) Iron deficiency anemia; Translations: [Iron deficiency anemia, unspecified] 12-01-2022 Episodic Diabetes mellitus without complication (14 sources) High glucose level in blood; Translations: [Other abnormal glucose] 12-09-2021 Episodic Diseases of white blood cells (14 sources) Leukocytosis; Translations: [Elevated white blood cell count, unspecified] 05-30-2023 Chronic Essential hypertension (20 sources) Hypertensive disorder; Translations: [Essential (primary) hypertension] Onset: 12-09-2021 12-09-2021 Chronic Genitourinary congenital anomalies (14 sources) Left renal agenesis; 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 Stage IIA(T3 cN0 M0).PET/CT is negative.Discussed melanoma management, wide excision and sentinel lymph node dissection. He will like to go to [facility] in [place].Excision biopsy on 12/26/2021 showed R foot Melanocytic nevus with negative sentinel nodes, reviewed of original pathology did not reveal Other aftercare (1 source) Patient encounter status; Translations: [Encounter for follow-up examination after completed treatment for conditions other than malignant neoplasm] Episodic Other aftercare (3 sources) History of repair of umbilical hernia; Translations: [Encounter for follow-up examination after completed treatment for conditions other than malignant neoplasm] 02-09-2024 Episodic Other aftercare (2 sources) Encounter for follow-up examination after completed treatment for conditions other than malignant neoplasm; Translations: [Follow-up examination, following other surgery] 01-19-2024 Episodic Other and unspecified benign neoplasm (14 sources) Melanocytic nevus; Translations: [Melanocytic nevi, unspecified] 05-08-2022 Episodic Comment on above: Right sole S/P excis ion followed skin grafting. Wound has healed well.Discussed further management which is observation. Other diseases of veins and lymphatics (12 sources) Venous insufficiency of leg; Translations: [Venous insufficiency (chronic) (peripheral)] 03-08-2023 Episodic Other diseases of veins and lymphatics (10 sources) Venous insufficiency (chronic) (peripheral); Translations: [Venous (peripheral) insufficiency, unspecified] 03-08-2023 Episodic Other gastrointestinal disorders (9 sources) Diarrhea; Translations: [Diarrhea, unspecified] 10-11-2023 Episodic Other gastrointestinal disorders (6 sources) Diarrhea, unspecified; Translations: [Diarrhea] 10-11-2023 Episodic Other liver diseases (14 sources) Steatosis of liver; Translations: [Fatty (change of) liver, not elsewhere classified] 12-09-2021 Chronic Other non-traumatic joint disorders (14 sources) Shoulder pain; Translations: [Pain in unspecified shoulder] 12-07-2017 Episodic Other nutritional; endocrine; and metabolic disorders (3 sources) Obese class II; Translations: [Obesity, unspecified] Onset: 12-10-2021 12-10-2021 Chronic Other nutritional; endocrine; and metabolic disorders (14 sources) Body mass index 30+ - obesity; Translations: [Obesity, unspecified] 09-12-2021 Chronic Other skin disorders (14 sources) Localized swelling of right foot; Translations: [Localized swelling, mass and lump, right lower limb] 10-07-2021 Episodic Other skin disorders (16 sources) Eruption; Translations: [Rash and other nonspecific skin eruption] 08-15-2021 Episodic Other skin disorders (12 sources) Discoloration of skin; Translations: [Disorder of pigmentation, unspecified] 03-08-2023 Episodic Other skin disorders (4 sources) Disorder of pigmentation, unspecified; Translations: [Dyschromia, unspecified] 03-08-2023 Episodic Other skin disorders (2 sources) Mass of skin; Translations: [Localized swelling, mass and lump, unspecified] 06-28-2024 Episodic Other skin disorders (1 source) Rash and other nonspecific skin eruption; Translations: [Rash and other nonspecific skin eruption] Onset: 07-11-2025 Episodic Other upper respiratory disease (2 sources) Allergic rhinitis; Translations: [Allergic rhinitis, unspecified] 02-07-2025 Chronic Other upper respiratory infections (14 sources) Acute pharyngitis; Translations: [Acute pharyngitis, unspecified] 08-28-2019 Episodic Otitis media and related conditions (1 source) Acute right otitis media; Translations: [Otitis media, unspecified, right ear] 05-19-2024 Episodic Residual codes; unclassified (17 sources) Sleep apnea; Translations: [Sleep apnea, unspecified] Onset: 12-09-2021 12-09-2021 Chronic Residual codes; unclassified (17 sources) Hypersomnia; Translations: [Hypersomnia, unspecified] Onset: 12-09-2021 12-09-2021 Chronic Residual codes; unclassified (14 sources) Obstructive sleep apnea syndrome; Translations: [Obstructive sleep apnea (adult) (pediatric)] 12-09-2021 Chronic Residual codes; unclassified (8 sources) Obstructive sleep apnea (adult) (pediatric); Translations: [Obstructive sleep apnea (adult)(pediatric)] 10-11-2023 Chronic Residual codes; unclassified (10 sources) Edema of lower extremity; Translations: [Localized edema] 07-15-2023 Episodic Residual codes; unclassified (2 sources) Localized edema; Translations: [Edema] 07-14-2023 Episodic Residual codes; unclassified (10 sources) Acquired absence of other specified parts of digestive tract; Translations: [Status post laparoscopic appendectomy] 12-06-2023 Episodic Comment on above: Patient is a 38-year -old male who presents for his first postoperative visit following uncomplicated laparoscopic appendectomy on 11/16/2023. He has recovered well from the surgery. There are no lingering issues. Postoperative pathology was reviewed. Patient now wishes to be underway with plans for an umbilical hernia repair. I have shared that I would like to wait at least 6 weeks before proceeding with the second surgery. This visit did serve, however, as a preop for that procedure and we will now look for a date sometime in December. Septicemia (except in labor) (13 sources) Sepsis; Translations: [Sepsis, unspecified organism] 05-31-2023 Episodic Skin and subcutaneous tissue infections (20 sources) Cellulitis of lower limb; Translations: [Cellulitis of right lower limb] Episodic Past or Other Problems Problem Classification Problem Date Documented Da te Episodic/Chronic Mood disorders (3 sources) Mood disorders Onset: 01-07-2022 01-07-2022 Unclassified (1 source) Onset: 01-07-2022 01-07-2022 Results Test Name Value Interpretation Reference Range Facility Internal Medicine Office Vis itoandrew 07-11-2025 Internal Medicine Office Visit [facility] [address] [place] [address] [place] [address] OFFICE VISIT Date of Service: 07/11/25 MR#: [id number] Acct: [id number] Name: RIAZ DIOP Rep #: [id number] : 1985 Provider: Dr. Drew mitchell MD Age/Sex: 39/M Location: [facility] Status: Signed Intake Vital Signs 05/09/25 14:31 07/11/25 08:14 Height 6 ft 4 in 6 ft 4 in Weight: 323 lb BMI 39.3 BP 128/72 H Blood Pressure Location Lt brachial Position Sitting Respiration 16 Pulse 78 Pulse Source Monitor Temp 97.8 F Temp Source Temporal Pulse Oximetry (%) 97 Oxygen Delivery Method room air Intake Visit Reasons: 2 M FU Chief Complaint: 2 M FU Injury/Safety Hazard Assessment Required: No Accompanied by: Self Is patient in pain?: No Allergies shellfish derived Allergy (Severe, Verified 07/11/25 08:13) Nausea/Vom/Diarrhea Medications ???Medication ???Instructions ???Recorded ???Confirmed ???Type loratadine 10 mg capsule 10 mg PO DAILY ALLERGIES 02/13/21 07/11/25 History triamterene 37.5 1 tab PO QAM BLOOD PRESSURE #90 07/11/25 Rx mg-hydrochlorothiazide 25 mg tablet tabs valsartan 80 mg tablet 80 mg PO DAILY BLOOD PRESSURE #90 02/07/25 07/11/25 Rx tabs Nurse's Note: discuss meds patient is not taking medication at this time for BP PFSH Medical History Dermatitis Localized skin mass, lump, or swelling Fatty liver CPAP (continuous positive airway pressure) dependence Non-smoker History of edema Diarrhea Discoloration of skin Venous insufficiency of both lower extremities TARAS (iron deficiency anemia) Elevated random blood glucose level DORENE (obstructive sleep apnea) Fatty infiltration of liver Sleep apnea Hypersomnolence Localized swelling of right foot Obesity (BMI 30-39.9) Rash Congenital absence of left kidney Gallstones Asthma Shoulder pain Hypertension (Unknown) Surgical History History of umbilical hernia repair Hx of appendectomy Hx of foot surgery History of cholecystectomy History of wisdom tooth extraction History of hernia repair Family History Mother Asthma Cancer basal cell Social History household members: spouse Smoking Status: Never smoker alcohol intake: never substance use type: does not use what type of physical activity do you participate in: bicycling frequency: 1-2 times per week HPI HPI Chief Complaint: 2 M FU Details: RIAZ DIOP, is a 39-year-old male presenting with hypertension management and sleep apnea concerns. The patient reports a history of essential hypertension, for which he had been prescribed medication in the past. He admitted to discontinuing his antihypertensive medication a couple of months ago and has not resumed it since. Despite the discontinuation, the patient noted no significant changes in his blood pressure and expressed awareness of the need to monitor it regularly, especially given his current lifestyle improvements. Blood pressure today is at 128/72 much improved from his last couple of visits with systolic readings in the 140s. Had been on valsartan and triamterene hydrochlorothiazide. He described a positive change in work environment since acquiring a new job in August, which has reduced stress levels significantly, contributing to his current stable health status. Additionally, the patient discusses issues related to obstructive sleep apnea. He experiences difficulty maintaining the use of a CPAP machine, as it disrupts his sleep by causing an uncomfortable sensation that compels him to remove it during the night. The patient uses a full-face mask CPAP due to familial tendencies towards mouth breathing while sleeping. Although presented with the idea of a dental device for sleep apnea by acquaintances, the patient???s dentist advised against it, citing potential adverse effects on the gums. The patient reports his sleep quality as better when he can sleep on his stomach, although this becomes difficult due to discomfort with age. Other chronic conditions are stable. Attestation: Documentation on this patient encounter was supported using ambient scribe technology/ voice AI technology. The patient consented to recording for the purpose of documenting the encounter. Provider reviewed content of the generated note prior to signature. ROS Const Constitutional: No body ache, excessive sweating, fatigue, fever(s), frequent falls, headache(s), snoring, weakness, weight change, sleep problems or change in appetite Eyes Eyes: No blurry vision, change in vision, vision loss, dry eyes, eye pain or Light sensiti (more content not included)... Normal [facility] Internal Medicine Office Vis sherry 05-09-2025 Internal Medicine Office Visit [facility] [place] [address] [place] [address] OFFICE VISIT Date of Service: 05/09/25 MR#: [id number] Acct: [id number] Name: RIAZ DIOP Rep #: [id number] : 1985 Provider: Dr. Drew mitchell MD Age/Sex: 39/M Location: [facility] Status: Signed Intake Vital Signs 02/07/25 13:41 05/09/25 14:31 Height 6 ft 4 in 6 ft 4 in Weight: 327 lb BMI 39.8 BP 142/80 H Blood Pressure Location Lt brachial Position Sitting Respiration 18 Pulse 96 Pulse Source Monitor Temp 97.8 F Temp Source Temporal Pulse Oximetry (%) 98 Oxygen Delivery Method room air Intake Visit Reasons: 3 M FU Chief Complaint: 3 M FU Is patient in pain?: No Allergies shellfish derived Allergy (Severe, Verified 05/09/25 14:31) Nausea/Vom/Diarrhea Medications ???Medication ???Instructions ???Recorded ???Confirmed ???Type loratadine 10 mg capsule 10 mg PO DAILY ALLERGIES 02/13/21 05/09/25 History triamterene 37.5 1 tab PO QAM BLOOD PRESSURE #90 02/07/25 Rx mg-hydrochlorothiazide 25 mg tablet tabs valsartan 80 mg tablet 80 mg PO DAILY BLOOD PRESSURE #90 02/07/25 02/07/25 Rx tabs ketoconazole 2 % topical cream 1 applic topical BID #60 grams 10/2305/09/25 Rx Nurse's Note: pt states he has not been taking BP meds for about 1.5 months to see if the rash on his neck cleared. pt states he has been monitoring his blood pressures at home [facility] Medical History (Updated 05/09/25 @ 16:[address] Drew Mayen MD) Dermatitis Localized skin mass, lump, or swelling Fatty liver CPAP (continuous positive airway pressure) dependence Non-smoker History of edema Diarrhea Discoloration of skin Venous insufficiency of both lower extremities TARAS (iron deficiency anemia) Elevated random blood glucose level DORENE (obstructive sleep apnea) Fatty infiltration of liver Sleep apnea Hypersomnolence Localized swelling of right foot Obesity (BMI 30-39.9) Rash Congenital absence of left kidney Gallstones Asthma Shoulder pain Hypertension (Unknown) Surgical History History of umbilical hernia repair Hx of appendectomy Hx of foot surgery History of cholecystectomy History of wisdom tooth extraction History of hernia repair Family History Mother Asthma Cancer basal cell Social History household members: spouse Smoking Status: Never smoker alcohol intake: never substance use type: does not use what type of physical activity do you participate in: bicycling frequency: 1-2 times per week HPI HPI Chief Complaint: 3 M FU Details: RIAZ DIOP, is a 39 M who presents to the office today for follow-up of his chronic conditions. Also has some concerns. Reports a rash on his neck that has been present for a few months. No known precipitating factor. Worse with sweating/heat. Not intensely itchy. Measures so far have not been helpful. Stopped his medications to see if this was related however no significant improvement with this. History of hypertension, blood pressure today is at 142/80. Quit taking his blood pressure medications as well due to his rash. He states that his readings have remained largely the same even without his medication. Had been taking hydrochlorothiazide and valsartan. Denies chest pain, palpitation or shortness of breath. Other chronic medical conditions are stable. ROS Const Constitutional: No body ache, chills, excessive sweating, fatigue, fever(s), frequent falls, headache(s), snoring, weight change, sleep problems, abnormal sleep pattern or change in appetite Eyes Eyes: No blurry vision, change in vision, floaters, visual disturbances, eye pain or Light sensitivity ENT ENT: No abnormal hearing, ear or mastoid pain, tinnitus, balance problems, nosebleed/epistaxis, nasal congestion, headache(s), neck pain or sore throat Resp Respiratory: No cough, excessive phlegm production, pain on inspiration, shortness of breath, snoring or wheezing Cardio Cardiology: No chest pain at rest, chest pain with exertion, excessive sweating, shortness of breath, dyspnea on exertion, lightheadedness, orthopnea or palpitations Gastro GI: No abdominal pain, change in bowel habits, constipation, cramping, diarrhea, nausea/dyspepsia or vomiting Genitourinary Male: No burning urination, painful urination, urinary incontinence or urinary frequency Musc Musculoskeletal: No abnormal gait, joint pain, back pain, limited range of motion, neck pain, numbness or tingling Skin Skin: No dry skin, redness, excessive hair growth, yellowing of the eye, lesions, itchy eyes, rash or wounds Neuro Neuro (more content not included)... Normal [facility] Internal Medicine Office Vis itoandrew 02-07-2025 Internal Medicine Office Visit [facility] [address] [place] [address] [place] [address] OFFICE VISIT Date of Service: 02/07/25 MR#: [id number] Acct: [id number] Name: RIAZ DIOP Rep #: [id number] : 1985 Provider: BO Carter Age/Sex: 39/M Location: [facility] Status: Signed Intake Vital Signs 06/28/24 09:40 01/31/25 14:51 02/07/25 13:41 Height 6 ft 4 in 6 ft 4 in 6 ft 4 in Weight: 322 lb BMI 39.2 BP 144/96 H Blood Pressure Location Lt brachial Position Sitting Respiration 14 Pulse 96 Pulse Source Monitor Temp 98.6 F Temp Source Temporal Pulse Oximetry (%) 99 Oxygen Delivery Method room air Intake Visit Reasons: acute -possible cellulitis Injury/Safety Hazard Assessment Required: No Is patient in pain?: No Allergies shellfish derived Allergy (Severe, Verified 02/07/25 13:29) Nausea/Vom/Diarrhea Medications ???Medication ???Instructions ???Recorded ???Confirmed ???Type loratadine 10 mg capsule 10 mg PO DAILY ALLERGIES 02/13/21 02/07/25 History famotidine 20 mg tablet 20 mg PO BID #20 tabs 02/07/2511/22 Rx triamterene 37.5 1 tab PO QAM BLOOD PRESSURE #90 02/07/25 Rx mg-hydrochlorothiazide 25 mg tablet tabs valsartan 80 mg tablet 80 mg PO DAILY BLOOD PRESSURE #90 02/07/25 02/07/25 Rx tabs Nurse's Note: Went to er for rash, states it is getting better. Had a h/o chronic cellulitis. Finished prednisone wednesday. Henderson snot gotten worse since stopping, did improve some. Still has occasional itching. States Wednesday night he was having intercourse w/ his and got a thunderclap headache which last to the next day and then got better. He does not typically get headaches. Has had intercourse last night and had no headache. Needs both meds refilled. [facility] Medical History Localized skin mass, lump, or swelling Fatty liver CPAP (continuous positive airway pressure) dependence Non-smoker History of edema Diarrhea Discoloration of skin Venous insufficiency of both lower extremities TARAS (iron deficiency anemia) Elevated random blood glucose level DORENE (obstructive sleep apnea) Fatty infiltration of liver Sleep apnea Hypersomnolence Localized swelling of right foot Obesity (BMI 30-39.9) Rash Congenital absence of left kidney Gallstones Asthma Shoulder pain Hypertension (Unknown) Surgical History History of umbilical hernia repair Hx of appendectomy Hx of foot surgery History of cholecystectomy History of wisdom tooth extraction History of hernia repair Family History Mother Asthma Cancer basal cell Social History household members: spouse Smoking Status: Never smoker alcohol intake: never substance use type: does not use what type of physical activity do you participate in: bicycling frequency: 1-2 times per week HPI HPI Details: RIAZ DIOP, is a 39 M who presents to the office today for ER f/u. Patient states that he went to the ED due to rash with some nausea. He has a history of having cellulitis in the past. Previously he had it and it progressed rapidly and required hospitalization (previous episodes were on his right leg that progressed up the leg). So he had been given a script for antibiotics to have on hand in case it were to happen again. He started the antibiotics when this rash occurred on the neck / chest area but after a few days he was not seeing any improvement and thus went to the ED. They gave him prednisone when he was in there and enough for 2 days at home (3 days total). He states that he finished 7 days of antibiotics and the prednisone and states that he has definitely seen improvement at the same time is not 100% resolved. HE has not had any regression or return though of redness. Patient is also in need of medication refills for his BP. He does check his BP and lately it has been running very good typically around 128/80 (consistently around her). It is up a little but has been on all of his meds. He has a an of pop a few times a week No nicotine No ETOH use ROS Const Constitutional: No body ache, chills, excessive sweating, fatigue, fever(s), frequent falls, headache(s), snoring, weakness, sleep problems or change in appetite Eyes Eyes: No blurry vision, change in vision, eye pain or Light sensitivity ENT ENT: No abnormal hearing, ear or mastoid pain, tinnitus, nasal congestion, headache(s), neck pain or sore throat Resp Respiratory: No cough, shortness of breath, snoring or wheezing Cardio Cardiology: No chest pain at rest, chest pain with exertion, excessive sweating, shortness of (more content not included)... Normal [facility] Absolute lymphocyte countOrd ered By: Armond Guerrero on 01-31-2025 Lymphocytes Auto (Unsp spec) [#/Vol] 2.14 10*3/uL 0.83-4.51 [facility] Absolute neutrophil countOrd ered By: Armond Guerrero on 01-31-2025 Neutrophils (Bld) [#/Vol] 5.4 10*3/uL 2.0-7.7 [facility] Anion gap in Serum or Plasma Ordered By: Armond Guerrero on 01-31-2025 Anion gap [Moles/Vol] 14 mmol/L 5- [facility] Automated lymphocyte count a s percentage of total leukocytesOrdered By: Armond Guerrero on 01-31-2025 Lymphocytes/100 WBC Auto (Unsp spec) 25.8 % [facility] BUN/creatinine ratioOrdered By: Armond Guerrero on 01-31-2025 Urea nitrogen/Creatinine [Mass ratio] 10.6 mg/mg - [facility] Basic Metabolic Profile (BMP )on 01-31-2025 BUN/CRE 10.6 RATIO Normal 09-17 [facility] Comment on above: Performed By: #### L 100.0100, L500.2500 #### [facility] [address] [place], [address] Calcium [Mass/Vol] 9.5 mg/dL Normal 7.6-11.0 [facility] Comment on above: Performed By: #### L 100.0100, L500.2500 #### [facility] [address] [place], [address] Chloride [Moles/Vol] 101 mmol/L Normal 98-108 [facility] Comment on above: Performed By: #### L 100.0100, L500.2500 #### [facility] [address] [place], [address] CO2 [Moles/Vol] 21.4 mmol/L Normal 21.0-32.0 [facility] Comment on above: Performed By: #### L 100.0100, L500.2500 #### [facility] [address] [place], [address] Creatinine [Mass/Vol] 1.13 mg/dL Normal 0.70-1.20 [facility] Comment on above: Performed By: #### L 100.0100, L500.2500 #### [facility] [address] [place], [address] ECRCL 136.73 ml/min Normal 50-250 [facility] Comment on above: Performed By: #### L 100.0100, L500.2500 #### [facility] [address] [place], [address] GAP 14 Normal 5-15 [facility] Comment on above: Performed By: #### L 100.0100, L500.2500 #### [facility] [address] [place], [address] GFR/1.73 sq M.predicted among non-blacks MDRD (S/P/Bld) [Vol rate/Area] 85 mL/min/{1.73_m2} Normal >60 [facility] Comment on above: Result Comment: mL/m in/1.73m2 CKD-EPI Creatinine Equation (2020) Performed By: #### L 100.0100, L500.2500 #### [facility] [address] [place], [id number] Glucose [Mass/Vol] 99 mg/dL Normal 70-99 [facility] Comment on above: Performed By: #### L 100.0100, L500.2500 #### [facility] [address] [place], [address] Potassium [Moles/Vol] 3.6 mmol/L Normal 3.3-5.1 [facility] Comment on above: Performed By: #### L 100.0100, L500.2500 #### [facility] [address] [place], [address] Sodium [Moles/Vol] 137 mmol/L Normal 133-145 [facility] Comment on above: Performed By: #### L 100.0100, L500.2500 #### [facility] [address] [place], [id number] Urea nitrogen [Mass/Vol] 12 mg/dL Normal 4-19 [facility] Comment on above: Performed By: #### L 100.0100, L500.2500 #### [facility] [address] [place], [id number] Basophil percentageOrdered B y: Armond Le on 01-31-2025 Basophils/100 WBC (Bld) 1.1 % High 0-1 [facility] CBC W/Diff, Automatedon Absolute Lymph 2.14 X10 3/uL Normal 0.83-4.51 [facility] Comment on above: Performed By: #### L 100.0100, L500.2500 #### [facility] [address] [place], [id number] Absolute Neut 5.4 X10 3/uL Normal 2.0-7.7 [facility] Comment on above: Performed By: #### L 100.0100, L500.2500 #### [facility] [address] [place], [id number] Basophils/100 WBC (Bld) 1.1 % High 0-1 [facility] Comment on above: Performed By: #### L 100.0100, L500.2500 #### [facility] [address] [place], [address] Eosinophils/100 WBC (Bld) 2.1 % Normal 0-5 [facility] Comment on above: Performed By: #### L 100.0100, L500.2500 #### [facility] [address] [place], [address] Erythrocyte distribution width (RBC) [Ratio] 12.2 % Normal 11.6-14.6 [facility] Comment on above: Performed By: #### L 100.0100, L500.2500 #### [facility] [address] [place], [address] Hematocrit (Bld) [Volume fraction] 45.5 % Normal 40-54 [facility] Comment on above: Performed By: #### L 100.0100, L500.2500 #### [facility] [address] [place], [address] Hemoglobin (Bld) [Mass/Vol] 16.2 g/dL Normal 13.0-16.5 [facility] Comment on above: Performed By: #### L 100.0100, L500.2500 #### [facility] [address] [place], [address] IG% 0.100 Normal 0.0-0.9 [facility] Comment on above: Result Comment: IG% - Immature Granulocytes (promyelocytes, myelocytes and metamyelocytes) > 1% indicates that a LEFT SHIFT is Present. Performed By: #### L 100.0100, L500.2500 #### [facility] [address] [place], [id number] Lymphocytes/100 WBC (Bld) 25.8 % Normal 19-41 [facility] Comment on above: Performed By: #### L 100.0100, L500.2500 #### [facility] [address] [place], [address] MCH (RBC) [Entitic mass] 31.3 pg Normal 27.0-32.0 [facility] Comment on above: Performed By: #### L 100.0100, L500.2500 #### [facility] [address] [place], [id number] MCHC (RBC) [Mass/Vol] 35.6 g/dL Normal 32-36 [facility] Comment on above: Performed By: #### L 100.0100, L500.2500 #### [facility] [address] [place], [id number] MCV (RBC) [Entitic vol] 87.8 fL Normal 80-94 [facility] Comment on above: Performed By: #### L 100.0100, L500.2500 #### [facility] [address] [place], [id number] Monocytes/100 WBC (Bld) 5.4 % Normal 0-10 [facility] Comment on above: Performed By: #### L 100.0100, L500.2500 #### [facility] [address] [place], [id number] Neutrophils/100 WBC (Bld) 65.5 % Normal 47-70 [facility] Comment on above: Performed By: #### L 100.0100, L500.2500 #### [facility] [address] [place], [address] Nucleated RBC (Bld) [#/Vol] 0 10*3/uL Normal 0-5 [facility] Comment on above: Performed By: #### L 100.0100, L500.2500 #### [facility] [address] [place], [address] Platelet mean volume (Bld) [Entitic vol] 10.0 fL Normal 6.2-12.0 [facility] Comment on above: Performed By: #### L 100.0100, L500.2500 #### [facility] [address] [place], [address] Platelets (Bld) [#/Vol] 455 10*3/uL High 150-450 [facility] Comment on above: Performed By: #### L 100.0100, L500.2500 #### [facility] [address] [place], [address] RBC (Bld) [#/Vol] 5.18 10*6/uL Normal 4.6-6.2 [facility] Comment on above: Performed By: #### L 100.0100, L500.2500 #### [facility] [address] [place], [address] RDW SD 39.1 fl Normal 35.1-43.9 [facility] Comment on above: Performed By: #### L 100.0100, L500.2500 #### [facility] [address] [place], [address] WBC (Bld) [#/Vol] 8.3 10*3/uL Normal 4.4-11.0 [facility] Comment on above: Performed By: #### L 100.0100, L500.2500 #### [facility] [address] [place], [address] Carbon dioxide, total [Moles /volume] in Central venous bloodOrdered By: Armond Guerrero on 01-31-2025 CO2 [Moles/Vol] 21.4 mmol/L 21.0-32.0 [facility] Chloride assayOrdered By: Dago Guerrero on 01-31-2025 Chloride [Moles/Vol] 101 mmol/L 98-108 [facility] Emergency Department Summary on 01-31-2025 Emergency Department Summary [facility] Medical Records Department [address] [place] [address] Emergency Department Summary 01/31/25 MR#: [id number] Acct: [id number] Name: RIAZ DIOP Rep #: [id number] : 1985 39 From: Ruiz Schwartz MD PCP: Dr. Drew Mayen MD Status:REG ER Location: ED ADDENDUM by Dr. Armond Guerrero DO on 01/31/25 at 1759 Patient plan discharge for treatment concerning for cellulitis versus allergic reaction on prednisone. There is initial discussion for blood work, states after calling and discussing with physician they requested lab draws. CBC BMP ordered. White count returned at 8.3. Normal kidney function normal electrolytes. He is reassured on findings. He will finish his antibiotics and the steroids written. Follow-up with his doctor. 01/31/251758 Cosigner Signature (if applicable): cc: Dr. Drew Mayen MD * Signed HPI History of Present Illness Chief Complaint: Cellulitis Detail of Chief Complaint: Rash on his neck since Wednesday. Informant: patient Onset/Context/Timing Onset: Days Context: Gradual Onset Timing: Continuous Current Severity: Mild Maximum Severity: Mild Narrative Narrative: 39-year-old male past medical history of congenitally 1 kidney and hypertension. Said since Wednesday night he had a mild rash on his neck both anterior and left side. He has had cellulitis before. He started taking his antibiotics doxycycline twice a day Keflex 4 times a day and is mildly getting better. There is mild itching is never had an allergic reaction 4. The rash is not on his back, chest, abdomen or upper or lower extremities. He denies any swelling of his lips or tongue. Prior similar symptoms: Yes Recent Illness/Hospitalization: No PFSH PFSH Medical History Localized skin mass, lump, or swelling Fatty liver CPAP (continuous positive airway pressure) dependence Non-smoker History of edema Diarrhea Discoloration of skin Venous insufficiency of both lower extremities TARAS (iron deficiency anemia) Elevated random blood glucose level DORENE (obstructive sleep apnea) Fatty infiltration of liver Sleep apnea Hypersomnolence Localized swelling of right foot Obesity (BMI 30-39.9) Rash Congenital absence of left kidney Gallstones Asthma Shoulder pain Hypertension (Unknown) Home Medications ???Medication ???Instructions ???Recorded ???Last Taken ???Type loratadine 10 mg capsule 10 mg PO DAILY ALLERGIES 02/13/21 Unknown History mupirocin 2 % topical ointment 1 applic topical BID #15 grams Unknown Rx triamterene 37.5 1 tab PO QAM BLOOD PRESSURE #90 Unknown Rx mg-hydrochlorothiazide 25 mg tablet tabs valsartan 80 mg tablet 80 mg PO DAILY BLOOD PRESSURE #90 11/08/24 Unknown Rx tabs prednisone 20 mg tablet 40 mg (2 x 20 mg) PO DAILY 2 days 01/31/25 Unknown Rx #4 tabs Allergy/AdvReac Type Severity Reaction Status Date / Time shellfish derived Allergy Severe Nausea/Vom/ Verified 01/31/25 14:53 Diarrhea Family History Mother Asthma Cancer basal cell Surgical History History of umbilical hernia repair Hx of appendectomy Hx of foot surgery History of cholecystectomy History of wisdom tooth extraction History of hernia repair Social History household members: spouse Smoking Status: Never smoker alcohol intake: never substance use type: does not use what type of physical activity do you participate in: bicycling frequency: 1-2 times per week ROS ROS ED ROS Narrative Denies recent illness. No fever or chills. No vomiting or diarrhea. Constitutional Constitutional ED: Denies chills or fever(s) Eyes Eyes: Denies blurry vision ENT ENT ED: Denies ear pain Cardiovascular Cardiovascular: Denies chest pain Respiratory/Chest Respiratory/Chest: Denies cough or dyspnea Gastrointestinal Gastrointestinal: Denies abdominal pain Genitourinary Genitourinary ED: Denies dysuria or hematuria Musculoskeletal Musculoskeletal: Denies arthralgias Integumentary Reports rash; Denies abscess or Abrasions Neurologic Neurologic: Denies headache(s) Psychiatric Psychiatric: Denies anxiety Endocrine Endocrinology: Denies cold intolerance Hematologic/Lymphatic Hematologic/Lymphatic: Reports none Allergic/Immunologic Allergic/Immunologic ED: Denies mouth swelling, tongue swelling or urticaria EXAM Physical Exam Narrative Exam Narrative: Well-appearing 39-year-old male sitting upright in hallway chair due to current volume. Vital signs are stable afebrile. He does not look septic dietary and distress. H EENT exam she is audrey (more content not included)... Normal [facility] Eosinophil percentageOrdered By: Armond Guerrero on 01-31-2025 Eosinophils/100 WBC (Bld) 2.1 % 0-5 [facility] Erythrocyte distribution wid th ratioOrdered By: Armond Guerrero on 01-31-2025 Erythrocyte distribution width (RBC) [Ratio] 12.2 % 11.6-14.6 [facility] Erythrocyte distribution wid th standard deviationOrdered By: Armond Guerrero on 01-31-2025 Erythrocyte distribution width (RBC) [Ratio] 39.1 fl 35.1-43.9 [facility] Glomerular filtration rate ( GFR) estimation/1.73 sq m using serum, plasma, or whole bOrdered By: Armond Guerrero on 01-31-2025 GFR/1.73 sq M.predicted among non-blacks MDRD (S/P/Bld) [Vol rate/Area] 85 mL/min/{1.73_m2} >60 [facility] Comment on above: mL/min/1.73m2 CKD-EP I Creatinine Equation (2020) Hematocrit Auto (Bld) [Volum e fraction]Ordered By: Armond Guerrero on 01-31-2025 Hematocrit (Bld) [Volume fraction] 45.5 % 40-54 [facility] Hemoglobin measurementOrdere d By: Armond Guerrero on 01-31-2025 Hemoglobin (Bld) [Mass/Vol] 16.2 g/dL 13.0-16.5 [facility] Immature granulocytes/100 WB C Auto (Bld)Ordered By: Armond Guerrero on 01-31-2025 Immature granulocytes/100 WBC (Bld) 0.100 % 0.0-0.9 [facility] Comment on above: IG% - Immature Granu locytes (promyelocytes, myelocytes and metamyelocytes) > 1% indicates that a LEFT SHIFT is Present. MCV (mean corpuscular volume ) determinationOrdered By: Armond Guerrero on 01-31-2025 MCV (RBC) [Entitic vol] 87.8 fL 80-94 [facility] Mean corpuscular hemoglobin (MCH) determinationOrdered By: Armond Guerrero on 01-31-2025 MCH (RBC) [Entitic mass] 31.3 pg 27.0-32.0 [facility] Mean corpuscular hemoglobin concentration (MCHC) determinationOrdered By: Armond Guerrero on 01-31-2025 MCHC (RBC) [Mass/Vol] 35.6 g/dL 32-36 [facility] Mean platelet volume determi nationOrdered By: Armond Guerrero on 01-31-2025 Platelet mean volume (Bld) [Entitic vol] 10.0 fL 6.2-12.0 [facility] Monocyte percentageOrdered B y: Armond Guerrero on 01-31-2025 Monocytes/100 WBC (Bld) 5.4 % 0-10 [facility] Neutrophil percentageOrdered By: Armond Guerrero on 01-31-2025 Neutrophils/100 WBC (Bld) 65.5 % 47-70 [facility] Nucleated red blood cell per centageOrdered By: Armond Guerrero on 01-31-2025 Nucleated RBC/100 WBC (Bld) [Ratio] 0 % 0-5 [facility] Platelet countOrdered By: Dago Guerrero on 01-31-2025 Platelets (Bld) [#/Vol] 455 10*3/uL High 150-450 [facility] Potassium measurement (mass/ volume)Ordered By: Armond Guerrero on 01-31-2025 Potassium (Unsp spec) [Mass/Vol] 3.6 mmol/L 3.3-5.1 [facility] RBC Auto (Bld) [#/Vol]Ordere d By: Armond Guerrero on 01-31-2025 RBC (Bld) [#/Vol] 5.18 10*6/uL 4.6-6.2 [facility] Serum creatinine measurement (mass/volume)Ordered By: Armond Guerrero on 01-31-2025 Creatinine [Mass/Vol] 1.13 mg/dL 0.70-1.20 [facility] Serum glucose measurement (m ass/volume)Ordered By: Armond Guerrero on 01-31-2025 Glucose [Mass/Vol] 99 mg/dL 70-99 [facility] Serum or plasma calcium ani urement (mass/volume)Ordered By: Armond Guerrero on 01-31-2025 Calcium [Mass/Vol] 9.5 mg/dL 7.6-11.0 [facility] Serum or plasma urea nitroge n measurement (mass/volume)Ordered By: Armond Guerrero on 01-31-2025 Urea nitrogen [Mass/Vol] 12 mg/dL 4-19 [facility] Sodium levelOrdered By: Armond Guerrero on 01-31-2025 Sodium [Moles/Vol] 137 mmol/L 133-145 [facility] White blood cell (WBC) count Ordered By: Armond Guerrero on 01-31-2025 WBC (Bld) [#/Vol] 8.3 10*3/uL 4.4-11.0 [facility] CNOVon 05-19-2024 CNOV Office Visit (UCTR ) RIAZ DIOP ([id number]) 1985 Date Time Provider Department 05/19/24 9:30 AM VINNIE HERNANDEZ [facility] During your visit today, we recorded the following information about you: Temperature Pulse Respiration Blood pressure 97.1 degrees 101/minute 18/minute 144/90 Weight 147 kg Vinnie Hernandez MD 05/19/2024 10:23 AM Signed Patient presents with: Ear Problem: Bilat ear problem, states they are feeling clogged, loss of hearing, scratching ears couple months increasing x couple days into discomfort HPI: Feeling right ear is plugged for 4 days. Positive symptoms: decreased hearing, months of bilateral canal pruritus Negative symptoms: Cough, Sore throat, Earache, Nasal Congestion, Rhinorrhea, Fever, otorrhea, , OTC: ear wax drops PAST MEDICAL HISTORY Diagnosis Date Hypertension Malignant melanoma (HCC) right foot PAST SURGICAL HISTORY Procedure Laterality Date APPENDECTOMY INGUINAL HERNIA REPAIR HX Bilateral LASIK REMOVAL GALLBLADDER MEDICATIONS: Current Outpatient Medications Medication Sig triamterene-hydroCHLOROthia zide (MAXZIDE-25) 37.5-25 mg per tablet Take 1 tablet by mouth every morning. valsartan (DIOVAN) 80 mg tablet Take 80 mg by mouth once daily. loratadine 10 mg cap Take by mouth once daily. No current facility-administered medications for this visit. ALLERGIES: ALLERGIES Allergen Reactions Shellfish Derived GI Upset VITALS: BP 144/90 Pulse 101 Temp 36.2 ?C (97.1 ?F) Resp 18 Wt (!) 147 kg (324 lb 1.2 oz) SpO2 98% PHYSICAL EXAM: GEN: Pleasant, in no acute distress. HEENT: PERRL, EOMI, conjunctiva clear Ears: Circumferential yellow debris in the right canal. Left canal with fine scale. Right tympanic membrane with erythema and effusion. LTM without erythema, bulge, or effusion Sinuses: non-tender frontal sinus, non-tender maxillary sinuses Throat: moist mucous membranes, no erythema, no exudate Neck: supple, no thyromegaly, no lymphadenopathy HEART: regular rate and rhythm, no murmurs LUNGS: clear to auscultation, no wheezes or crackles, no increased WOB ASSESSMENT/PLAN: 1. Acute otitis media, right - ICD9: 382.9, ICD10: H66.91 - Will begin treatment with - AMOXICILLIN 875 MG TABLET Continue wax softening drops to the right canal. Consider ENT evaluation of chronic ear eczema. Vinnie Hernandez MD Allergies As of Date: 05/19/2024 Noted Allergy Reaction SHELLFISH DERIVED 12/10/2021 8 - GI Upset Date Reviewed: 05/19/2024 Reviewed by: Lena Collins LPN - Fully Assessed Reason for Visit: Ear Problem [38] Cmt: Bilat ear problem, states they are feeling clogged, loss of hearing, scratching ears couple months increasing x couple days into discomfort Primary Visit Diagnosis:Acute otitis media, right [H66.91] Order(s):amoxicillin (AMOXIL) 875 mg tabletTake 1 tablet by mouth two times a day for 7 days.Disp: 14 tabletRfl: 0 Prescriptions as of 05/19/2024 - triamterene-hydroCHLOROthia zide (MAXZIDE-25) 37.5-25 mg per tablet Take 1 tablet by mouth every morning. - valsartan (DIOVAN) 80 mg tablet Take 80 mg by mouth once daily. - amoxicillin (AMOXIL) 875 mg tablet Take 1 tablet by mouth two times a day for 7 days. - loratadine 10 mg cap Take by mouth once daily. Problem List As Of Date: 05/19/2024 (None) Prescriptions ordered this encounter Disp Refills Start End AMOXICILLIN 875 MG TABLET 14 t* 0 05/19/2024 05/26/2024 Route: ORAL Sig: Take 1 tablet by mouth two times a day for 7 days. Medications Discontinued During This Encounter Prescriptions - hydroCHLOROthiazide (HYDRODIURIL, ESIDRIX) 12.5 mg tablet (Discontinued) Take by mouth once daily. Encounter Status:Closed by VINNIE HERNANDEZ on 05/19/24 Normal [facility] Absolute lymphocyte countOrd ered By: Drew Mayen on 01-12-2024 Lymphocytes Auto (Unsp spec) [#/Vol] 1.62 10*3/uL 0.83-4.51 [facility] Automated lymphocyte count a s percentage of total leukocytesOrdered By: Drew Mayen on 01-12-2024 Lymphocytes/100 WBC Auto (Unsp spec) 25.2 % 19-41 [facility] Basophil percentageOrdered B y: Drew Mayen on 01-12-2024 Basophils/100 WBC (Bld) 0.8 % 0-1 [facility] Chloride [Moles/Vol] 110 mmol/L 98-107 [facility] Eosinophils/100 WBC (Bld) 3.1 % 0-5 [facility] Glucose [Mass/Vol] 112 mg/dL 74-106 [facility] Comment on above: Fasting Glucose resu lt from 100 to 125 mg/dL suggests IMPAIRED HOMEOSTASIS per A.D.A. criteria. Hemoglobin (Bld) [Mass/Vol] 14.0 g/dL 13.0-16.5 [facility] Monocytes/100 WBC (Bld) 5.8 % 0-10 [facility] Neutrophils (Bld) [#/Vol] 4.2 10*3/uL 2.0-7.7 [facility] Neutrophils/100 WBC (Bld) 64.5 % 47-70 [facility] Potassium [Moles/Vol] 4.1 mmol/L 3.5-5.1 [facility] Sodium [Moles/Vol] 144 mmol/L 136-145 [facility] WBC (Bld) [#/Vol] 6.4 10*3/uL 4.4-11.0 [facility] Determination of erythrocyte mean corpuscular volume (MCV)Ordered By: Drew Mayen on 01-12-2024 MCV (RBC) [Entitic vol] 90.9 fL 80-94 [facility] Erythrocyte distribution wid th ratioOrdered By: [facility] Randallcorinne on 01-12-2024 Erythrocyte distribution width (RBC) [Ratio] 12.5 % 11.6-14.6 [facility] Erythrocyte distribution wid th standard deviationOrdered By: marlenidonnellsonmirella Mayen on 01-12-2024 Erythrocyte distribution width (RBC) [Entitic vol] 41.3 fL 35.1-43.9 [facility] Hematocrit Auto (Bld) [Volum e fraction]Ordered By: Drew Mayen on 01-12-2024 Hematocrit (Bld) [Volume fraction] 41.0 % 40-54 [facility] Immature granulocytes/100 WB C Auto (Bld)Ordered By: christopher Mayen on 01-12-2024 Immature granulocytes/100 WBC (Bld) 0.600 % 0.0-0.9 [facility] Comment on above: IG% - Immature Granu locytes (promyelocytes, myelocytes and metamyelocytes) > 1% indicates that a LEFT SHIFT is Present. Laboratory - Chemistry and C hemistry - challengeOrdered By: Drew Mayen on 01-12-2024 CO2 [Moles/Vol] 27.0 mmol/L 21.0-32.0 [facility] Urea nitrogen/Creatinine [Mass ratio] 7.3 mg/mg 10-20 [facility] Laboratory - Hematology and Cell countsOrdered By: Drew Mayen on 01-12-2024 MCH (RBC) [Entitic mass] 31.0 pg 27.0-32.0 [facility] MCHC (RBC) [Mass/Vol] 34.1 g/dL 32-36 [facility] Nucleated RBC/100 WBC (Bld) [Ratio] 0 % 0-5 [facility] Platelet mean volume (Bld) [Entitic vol] 10.6 fL 6.2-12.0 [facility] Platelets (Bld) [#/Vol] 362 10*3/uL 150-450 [facility] No Panel InformationOrdered By: Drew Mayen on 01-12-2024 Estimated GFR (MDRD) Amer 97 mL/min >60 [facility] Comment on above: GFR Calc Estimated GFR (MDRD) Non-Af Amer 80 mL/min >60 [facility] Comment on above: Non- GFR Calc RBC Auto (Bld) [#/Vol]Ordere d By: Drew Mayen on 01-12-2024 RBC (Bld) [#/Vol] 4.51 10*6/uL 4.6-6.2 [facility] Serum or plasma calcium ani urement (mass/volume)Ordered By: Drew Mayen on 01-12-2024 Calcium [Mass/Vol] 8.9 mg/dL 8.5-10.1 [facility] Serum or plasma creatinine m easurement (mass/volume)Ordered By: Drew Mayen on 01-12-2024 Creatinine [Mass/Vol] 1.09 mg/dL 0.70-1.30 [facility] Comment on above: The validity of the calculated GFR & GFRAA in patients over 70 years has not been determined. Clinical correlation is essential. Serum or plasma urea nitroge n measurement (mass/volume)Ordered By: Drew Mayen on 01-12-2024 Urea nitrogen [Mass/Vol] 8 mg/dL 7-18 [facility] Thin prep Papanicolaou smear with manual screeningOrdered By: Drew Mayen on 01-12-2024 Thin prep Papanicolaou smear with manual screening 7 5-15 [facility] No Panel InformationOrdered By: Trinidad Nicolas on 12-06-2023 Nasal Screen MRSA/MSSA [facility] Nasal Screen MRSA/MSSA [facility] Absolute lymphocyte countOrd ered By: Joann Cheng on 11-17-2023 Lymphocytes Auto (Unsp spec) [#/Vol] 1.11 10*3/uL 0.83-4.51 [facility] Basophil percentageOrdered B y: Joann Cheng on 11-17-2023 Basophils/100 WBC (Bld) 0.3 % 0-1 [facility] Chloride [Moles/Vol] 109 mmol/L 98-107 [facility] Eosinophils/100 WBC (Bld) 0.5 % 0-5 [facility] Glucose [Mass/Vol] 132 mg/dL 74-106 [facility] Comment on above: Fasting Glucose resu lt greater than or equal to 126 mg/dL suggests DIABETES MELLITUS per A.D.A. criteria. Neutrophils (Bld) [#/Vol] 5.6 10*3/uL 2.0-7.7 [facility] Neutrophils/100 WBC (Bld) 76.6 % 47-70 [facility] Potassium [Moles/Vol] 3.9 mmol/L 3.5-5.1 [facility] Sodium [Moles/Vol] 142 mmol/L 136-145 [facility] WBC (Bld) [#/Vol] 7.3 10*3/uL 4.4-11.0 [facility] Blood erythrocytes count (nu mber/volume)Ordered By: Joann Cheng on 11-17-2023 RBC (Bld) [#/Vol] 4.01 10*6/uL 4.6-6.2 [facility] Blood hemoglobin measurement (mass/volume)Ordered By: Joann Cheng on 11-17-2023 Hemoglobin (Bld) [Mass/Vol] 12.6 g/dL 13.0-16.5 [facility] Blood lymphocytes/100 leukoc ytesOrdered By: Joann Cheng on 11-17-2023 Lymphocytes/100 WBC (Bld) 15.2 % 19-41 [facility] Blood monocytes/100 leukocyt esOrdered By: Joann Cheng on 11-17-2023 Monocytes/100 WBC (Bld) 7.1 % 0-10 [facility] Blood platelet mean volumeOr dered By: Joann Cheng on 11-17-2023 Platelet mean volume (Bld) [Entitic vol] 10.0 fL 6.2-12.0 [facility] Determination of erythrocyte mean corpuscular volume (MCV)Ordered By: Joann Cheng on 11-17-2023 MCV (RBC) [Entitic vol] 92.8 fL 80-94 [facility] Hematocrit Auto (Bld) [Volum e fraction]Ordered By: Joann Cheng on 11-17-2023 Hematocrit (Bld) [Volume fraction] 37.2 % 40-54 [facility] Laboratory - Chemistry and C hemistry - challengeOrdered By: Joann Cheng on 11-17-2023 CO2 [Moles/Vol] 26.0 mmol/L 21.0-32.0 [facility] Urea nitrogen/Creatinine [Mass ratio] 8.2 mg/mg 09-17 [facility] Laboratory - Hematology and Cell countsOrdered By: Joann Cheng on 11-17-2023 Erythrocyte distribution width (RBC) [Entitic vol] 42.5 fL 35.1-43.9 [facility] Erythrocyte distribution width (RBC) [Ratio] 12.5 % 11.6-14.6 [facility] Immature granulocytes/100 WBC (Bld) 0.300 % 0.0-0.9 [facility] Comment on above: IG% - Immature Granu locytes (promyelocytes, myelocytes and metamyelocytes) > 1% indicates that a LEFT SHIFT is Present. MCH (RBC) [Entitic mass] 31.4 pg 27.0-32.0 [facility] Nucleated RBC/100 WBC (Bld) [Ratio] 0 % 0-5 [facility] MCHC Auto (RBC) [Mass/Vol]Or dered By: Joann Cheng on 11-17-2023 MCHC (RBC) [Mass/Vol] 33.9 g/dL 32-36 [facility] No Panel InformationOrdered By: Joann Cheng on 11-17-2023 Estimated Creatinine Clearance Calc 125.48 ml/min [facility] Estimated GFR (MDRD) Amer 110 mL/min >60 [facility] Comment on above: GFR Calc Estimated GFR (MDRD) Non-Af Amer 91 mL/min >60 [facility] Comment on above: Non- GFR Calc Platelets bldOrdered By: Nereyda rosaандрей Prosper on 11-17-2023 Platelets (Bld) [#/Vol] 319 10*3/uL 150-450 [facility] Serum or plasma calcium ani urement (mass/volume)Ordered By: Joann Cheng on 11-17-2023 Calcium [Mass/Vol] 7.6 mg/dL 8.5-10.1 [facility] Serum or plasma creatinine m easurement (mass/volume)Ordered By: Joann Cheng on 11-17-2023 Creatinine [Mass/Vol] 0.98 mg/dL 0.70-1.30 [facility] Comment on above: The validity of the calculated GFR & GFRAA in patients over 70 years has not been determined. Clinical correlation is essential. Serum or plasma urea nitroge n measurement (mass/volume)Ordered By: Joann Cheng on 11-17-2023 Urea nitrogen [Mass/Vol] 8 mg/dL 7-18 [facility] Thin prep Papanicolaou smear with manual screeningOrdered By: Joann Cheng on 11-17-2023 Thin prep Papanicolaou smear with manual screening 7 5-15 [facility] Absolute lymphocyte countOrd ered By: Antonio Ferguson on 11-16-2023 Lymphocytes Auto (Unsp spec) [#/Vol] 1.22 10*3/uL 0.83-4.51 [facility] Basophil percentageOrdered B y: Antonio Ferguson on 11-16-2023 Basophil percentage 0 SEEN /hpf 0-5 [facility] Basophils/100 WBC (Bld) 0.2 % 0-1 [facility] Bilirubin [Mass/Vol] 0.70 mg/dL 0.20-1.00 [facility] Comment on above: For patients on eltr ombopag therapy, use of Dimension [place] TBIL is not recommended. Chloride [Moles/Vol] 108 mmol/L 98-107 [facility] Eosinophils/100 WBC (Bld) 0.1 % 0-5 [facility] Glucose [Mass/Vol] 115 mg/dL 74-106 [facility] Comment on above: Fasting Glucose resu lt from 100 to 125 mg/dL suggests IMPAIRED HOMEOSTASIS per A.D.A. criteria. Neutrophils (Bld) [#/Vol] 11.4 10*3/uL 2.0-7.7 [facility] Neutrophils/100 WBC (Bld) 85.6 % 47-70 [facility] Potassium [Moles/Vol] 3.8 mmol/L 3.5-5.1 [facility] Protein [Mass/Vol] 7.3 g/dL 6.4-8.2 [facility] Sodium [Moles/Vol] 139 mmol/L 136-145 [facility] WBC (Bld) [#/Vol] 13.3 10*3/uL 4.4-11.0 [facility] Bilirubin Test strip Ql (U)O rdered By: Antonio Ferguson on 11-16-2023 Bilirubin Ql (U) Negative Negative [facility] Blood erythrocytes count (nu mber/volume)Ordered By: Antonio Ferguson on 11-16-2023 RBC (Bld) [#/Vol] 4.67 10*6/uL 4.6-6.2 [facility] Blood hemoglobin measurement (mass/volume)Ordered By: Antonio Ferguson on 11-16-2023 Hemoglobin (Bld) [Mass/Vol] 14.4 g/dL 13.0-16.5 [facility] Blood lymphocytes/100 leukoc ytesOrdered By: Antonio Ferguson on 11-16-2023 Lymphocytes/100 WBC (Bld) 9.2 % 19-41 [facility] Blood monocytes/100 leukocyt esOrdered By: Antonio Ferguson on 11-16-2023 Monocytes/100 WBC (Bld) 4.5 % 0-10 [facility] Blood platelet mean volumeOr dered By: Antonio Ferguson on 11-16-2023 Platelet mean volume (Bld) [Entitic vol] 10.1 fL 6.2-12.0 [facility] Determination of erythrocyte mean corpuscular volume (MCV)Ordered By: Antonio Ferguson on 11-16-2023 MCV (RBC) [Entitic vol] 89.5 fL 80-94 [facility] Hematocrit Auto (Bld) [Volum e fraction]Ordered By: Antonio Ferguson on 11-16-2023 Hematocrit (Bld) [Volume fraction] 41.8 % 40-54 [facility] Ketones Test strip Ql (U)Ord ered By: Antonio Ferguson on 11-16-2023 Ketones Ql (U) Negative Negative [facility] Laboratory - Chemistry and C hemistry - challengeOrdered By: Antonio Ferguson on 11-16-2023 ALP [Catalytic activity/Vol] 70 U/L 45-117 [facility] ALT [Catalytic activity/Vol] 51 U/L 16-61 [facility] CO2 [Moles/Vol] 26.0 mmol/L 21.0-32.0 [facility] Globulin (S) [Mass/Vol] 3.5 g/dL 2.2-4.2 [facility] Lipase [Catalytic activity/Vol] 28 U/L 13-75 [facility] Comment on above: Please note:LIPASE r evised reference range effective 23. New Lipase methodology. Expected to produce lower values than the previous assay method. NEW Reference Range: 13 - 75 U/L Urea nitrogen/Creatinine [Mass ratio] 9.3 mg/mg 10-20 [facility] Laboratory - Hematology and Cell countsOrdered By: Antonio Ferguson on 11-16-2023 Erythrocyte distribution width (RBC) [Entitic vol] 39.8 fL 35.1-43.9 [facility] Erythrocyte distribution width (RBC) [Ratio] 12.2 % 11.6-14.6 [facility] Immature granulocytes/100 WBC (Bld) 0.400 % 0.0-0.9 [facility] Comment on above: IG% - Immature Granu locytes (promyelocytes, myelocytes and metamyelocytes) > 1% indicates that a LEFT SHIFT is Present. MCH (RBC) [Entitic mass] 30.8 pg 27.0-32.0 [facility] Nucleated RBC/100 WBC (Bld) [Ratio] 0 % 0-5 [facility] MCHC Auto (RBC) [Mass/Vol]Or dered By: Antonio Ferguson on 11-16-2023 MCHC (RBC) [Mass/Vol] 34.4 g/dL 32-36 [facility] Mucus LM Ql (Urine sed)Order ed By: Antonio Ferguson on 11-16-2023 Mucus Ql (Urine sed) 0 SEEN /hpf [facility] Nitrite Test strip Ql (U)Ord ered By: Antonio Ferguson on 11-16-2023 Nitrite Ql (U) Negative Negative [facility] No Panel InformationOrdered By: Antonio Ferguson on 11-16-2023 Estimated Creatinine Clearance Calc 114.92 ml/min [facility] Estimated GFR (MDRD) Amer 99 mL/min >60 [facility] Comment on above: GFR Calc Estimated GFR (MDRD) Non-Af Amer 82 mL/min >60 [facility] Comment on above: Non- GFR Calc Platelets bldOrdered By: Shreya Ferguson on 11-16-2023 Platelets (Bld) [#/Vol] 367 10*3/uL 150-450 [facility] Protein Test strip Ql (U)Ord ered By: Antonio Ferguson on 11-16-2023 Protein Ql (U) Negative Negative [facility] Serum or plasma albumin ani urement (mass/volume)Ordered By: Antonio Ferguson on 11-16-2023 Albumin [Mass/Vol] 3.8 g/dL 3.2-5.0 [facility] Serum or plasma albumin/glob ulin mass ratioOrdered By: Antonio Ferguson on 11-16-2023 Albumin/Globulin [Mass ratio] 1.1 {ratio} 0.9-2.4 [facility] Serum or plasma calcium ani urement (mass/volume)Ordered By: Antonio Ferguson on 11-16-2023 Calcium [Mass/Vol] 8.9 mg/dL 8.5-10.1 [facility] Serum or plasma creatinine m easurement (mass/volume)Ordered By: Antonio Ferguson on 11-16-2023 Creatinine [Mass/Vol] 1.07 mg/dL 0.70-1.30 [facility] Comment on above: The validity of the calculated GFR & GFRAA in patients over 70 years has not been determined. Clinical correlation is essential. Serum or plasma urea nitroge n measurement (mass/volume)Ordered By: Antonio Ferguson on 11-16-2023 Urea nitrogen [Mass/Vol] 10 mg/dL 7-18 [facility] Squamous epithelial cells de tection in urine sediment by light microscopyOrdered By: Antonio Ferguson on 11-16-2023 Epithelial cells.squamous LM Ql (Urine sed) 0-5 SEEN /hpf 0-5 [facility] Thin prep Papanicolaou smear with manual screeningOrdered By: Antonio Ferguson on 11-16-2023 Thin prep Papanicolaou smear with manual screening 19 U/L 15-37 [facility] Thin prep Papanicolaou smear with manual screening 5 5-15 [facility] Urine blood detectionOrdered By: Antonio Ferguson on 11-16-2023 RBC Ql (U) Negative Negative [facility] RBC Ql (U) 0 SEEN /hpf 0-5 [facility] Urine clarityOrdered By: Shreya Ferguson on 11-16-2023 Clarity (U) Clear Clear [facility] Urine color determinationOrd ered By: Antonio Ferguson on 11-16-2023 Color (U) Straw Yellow [facility] Urine glucose detectionOrder ed By: Antonio Ferguson on 11-16-2023 Glucose Ql (U) Normal mg/dl Normal [facility] Urine leukocyte esterase det ection by dipstickOrdered By: Antonio Ferguson on 11-16-2023 Leukocyte esterase Test strip Ql (U) Negative Negative [facility] Urine pHOrdered By: Antonio gutierrez on 11-16-2023 pH (U) 6.5 [pH] 5.0 - 8.0 [facility] Urine sediment bacteria coun t by microscopy (number/high power field)Ordered By: Antonio Ferguson on 11-16-2023 Bacteria LM.HPF (Urine sed) [#/Area] 0 /[HPF] None Seen [facility] Urine specific gravity measu rementOrdered By: Antonio Ferguson on 11-16-2023 Specific gravity (U) [Rel density] 1.010 1.002-1.03 0 [facility] Urobilinogen Auto test strip Ql (U)Ordered By: Antonio Ferguson on 11-16-2023 Urobilinogen Ql (U) Normal mg/dl Normal [facility] Absolute lymphocyte countOrd ered By: Drew Mayen on 10-11-2023 Lymphocytes Auto (Unsp spec) [#/Vol] 1.67 10*3/uL 0.83-4.51 [facility] Basophil percentageOrdered B y: Drew Prakashsonya on 10-11-2023 Basophils/100 WBC (Bld) 0.7 % 0-1 [facility] Chloride [Moles/Vol] 107 mmol/L 98-107 [facility] Eosinophils/100 WBC (Bld) 1.8 % 0-5 [facility] Glucose [Mass/Vol] 89 mg/dL 74-106 [facility] Neutrophils (Bld) [#/Vol] 3.2 10*3/uL 2.0-7.7 [facility] Neutrophils/100 WBC (Bld) 59.1 % 47-70 [facility] Potassium [Moles/Vol] 4.2 mmol/L 3.5-5.1 [facility] Sodium [Moles/Vol] 141 mmol/L 136-145 [facility] WBC (Bld) [#/Vol] 5.4 10*3/uL 4.4-11.0 [facility] Blood erythrocytes count (nu mber/volume)Ordered By: Drew Mayen on 10-11-2023 RBC (Bld) [#/Vol] 4.80 10*6/uL 4.6-6.2 [facility] Blood hemoglobin measurement (mass/volume)Ordered By: Drew Mayen on 10-11-2023 Hemoglobin (Bld) [Mass/Vol] 14.9 g/dL 13.0-16.5 [facility] Blood lymphocytes/100 leukoc ytesOrdered By: Drew Mayen on 10-11-2023 Lymphocytes/100 WBC (Bld) 30.8 % 19-41 [facility] Blood monocytes/100 leukocyt esOrdered By: Drew Mayen on 10-11-2023 Monocytes/100 WBC (Bld) 7.4 % 0-10 [facility] Blood platelet mean volumeOr dered By: Drew Mayen on 10-11-2023 Platelet mean volume (Bld) [Entitic vol] 10.3 fL 6.2-12.0 [facility] Determination of erythrocyte mean corpuscular volume (MCV)Ordered By: Drew Mayen on 10-11-2023 MCV (RBC) [Entitic vol] 91.5 fL 80-94 [facility] Hematocrit Auto (Bld) [Volum e fraction]Ordered By: Drew Mayen on 10-11-2023 Hematocrit (Bld) [Volume fraction] 43.9 % 40-54 [facility] Laboratory - Chemistry and C hemistry - challengeOrdered By: Drew Mayen on 10-11-2023 CO2 [Moles/Vol] 29.0 mmol/L 21.0-32.0 [facility] Urea nitrogen/Creatinine [Mass ratio] 10.1 mg/mg 10-20 [facility] Laboratory - Hematology and Cell countsOrdered By: Drew Mayen on 10-11-2023 Erythrocyte distribution width (RBC) [Entitic vol] 40.5 fL 35.1-43.9 [facility] Erythrocyte distribution width (RBC) [Ratio] 12.2 % 11.6-14.6 [facility] Immature granulocytes/100 WBC (Bld) 0.200 % 0.0-0.9 [facility] Comment on above: IG% - Immature Granu locytes (promyelocytes, myelocytes and metamyelocytes) > 1% indicates that a LEFT SHIFT is Present. MCH (RBC) [Entitic mass] 31.0 pg 27.0-32.0 [facility] Nucleated RBC/100 WBC (Bld) [Ratio] 0 % 0-5 [facility] MCHC Auto (RBC) [Mass/Vol]Or dered By: Drew Mayen on 10-11-2023 MCHC (RBC) [Mass/Vol] 33.9 g/dL 32-36 [facility] No Panel InformationOrdered By: Drew Mayen on 10-11-2023 Estimated GFR (MDRD) Amer 97 mL/min >60 [facility] Comment on above: GFR Calc Estimated GFR (MDRD) Non-Af Amer 81 mL/min >60 [facility] Comment on above: Non- GFR Calc Platelets bldOrdered By: Sagar Mayen on 10-11-2023 Platelets (Bld) [#/Vol] 385 10*3/uL 150-450 [facility] Serum or plasma calcium ani urement (mass/volume)Ordered By: Drew Mayen on 10-11-2023 Calcium [Mass/Vol] 9.0 mg/dL 8.5-10.1 [facility] Serum or plasma creatinine m easurement (mass/volume)Ordered By: marlenidonnellsonmirella Mayen on 10-11-2023 Creatinine [Mass/Vol] 1.09 mg/dL 0.70-1.30 [facility] Comment on above: The validity of the calculated GFR & GFRAA in patients over 70 years has not been determined. Clinical correlation is essential. Serum or plasma urea nitroge n measurement (mass/volume)Ordered By: marlenidonnellsonmirella Randallcorinne on 10-11-2023 Urea nitrogen [Mass/Vol] 11 mg/dL 7-18 [facility] Thin prep Papanicolaou smear with manual screeningOrdered By: [facility] Randallcorinne on 10-11-2023 Thin prep Papanicolaou smear with manual screening 5 5-15 [facility] Absolute lymphocyte countOrd ered By: Miriam Johnson on 06-01-2023 Lymphocytes Auto (Unsp spec) [#/Vol] 1.50 10*3/uL 0.83-4.51 [facility] Basophil percentageOrdered B y: Miriam Johnson on 06-01-2023 Basophils/100 WBC (Bld) 0.6 % 0-1 [facility] Chloride [Moles/Vol] 113 mmol/L 98-107 [facility] Eosinophils/100 WBC (Bld) 1.6 % 0-5 [facility] Glucose [Mass/Vol] 104 mg/dL 74-106 [facility] Comment on above: Fasting Glucose resu lt from 100 to 125 mg/dL suggests IMPAIRED HOMEOSTASIS per A.D.A. criteria. Neutrophils (Bld) [#/Vol] 4.2 10*3/uL 2.0-7.7 [facility] Neutrophils/100 WBC (Bld) 66.4 % 47-70 [facility] Potassium [Moles/Vol] 3.9 mmol/L 3.5-5.1 [facility] Sodium [Moles/Vol] 142 mmol/L 136-145 [facility] WBC (Bld) [#/Vol] 6.3 10*3/uL 4.4-11.0 [facility] Blood erythrocytes count (nu mber/volume)Ordered By: Miriam Johnson on 06-01-2023 RBC (Bld) [#/Vol] 4.16 10*6/uL 4.6-6.2 [facility] Blood hemoglobin measurement (mass/volume)Ordered By: Miriam Johnson on 06-01-2023 Hemoglobin (Bld) [Mass/Vol] 13.2 g/dL 13.0-16.5 [facility] Blood lymphocytes/100 leukoc ytesOrdered By: Miriam Johnson on 06-01-2023 Lymphocytes/100 WBC (Bld) 23.8 % 19-41 [facility] Blood monocytes/100 leukocyt esOrdered By: Miriam Johnson on 06-01-2023 Monocytes/100 WBC (Bld) 7.3 % 0-10 [facility] Blood platelet mean volumeOr dered By: Miriam Johnson on 06-01-2023 Platelet mean volume (Bld) [Entitic vol] 10.4 fL 6.2-12.0 [facility] Determination of erythrocyte mean corpuscular volume (MCV)Ordered By: Miriam Johnson on 06-01-2023 MCV (RBC) [Entitic vol] 92.3 fL 80-94 [facility] Hematocrit Auto (Bld) [Volum e fraction]Ordered By: Miriam Johnson on 06-01-2023 Hematocrit (Bld) [Volume fraction] 38.4 % 40-54 [facility] Laboratory - Chemistry and C hemistry - challengeOrdered By: Miriam Johnson on 06-01-2023 CO2 [Moles/Vol] 27.0 mmol/L 21.0-32.0 [facility] Urea nitrogen/Creatinine [Mass ratio] 6.8 mg/mg 10-20 [facility] Laboratory - Hematology and Cell countsOrdered By: Miriam Johnson on 06-01-2023 Erythrocyte distribution width (RBC) [Entitic vol] 43.5 fL 35.1-43.9 [facility] Erythrocyte distribution width (RBC) [Ratio] 12.8 % 11.6-14.6 [facility] Immature granulocytes/100 WBC (Bld) 0.300 % 0.0-0.9 [facility] Comment on above: IG% - Immature Granu locytes (promyelocytes, myelocytes and metamyelocytes) > 1% indicates that a LEFT SHIFT is Present. MCH (RBC) [Entitic mass] 31.7 pg 27.0-32.0 [facility] Nucleated RBC/100 WBC (Bld) [Ratio] 0 % 0-5 [facility] MCHC Auto (RBC) [Mass/Vol]Or dered By: Miriam Johnson on 06-01-2023 MCHC (RBC) [Mass/Vol] 34.4 g/dL 32-36 [facility] No Panel InformationOrdered By: Miriam Johnson on 06-01-2023 Estimated Creatinine Clearance Calc 120.56 ml/min [facility] Estimated GFR (MDRD) Amer 104 mL/min >60 [facility] Comment on above: GFR Calc Estimated GFR (MDRD) Non-Af Amer 86 mL/min >60 [facility] Comment on above: Non- GFR Calc Platelets bldOrdered By: Joana Johnson on 06-01-2023 Platelets (Bld) [#/Vol] 251 10*3/uL 150-450 [facility] Serum or plasma calcium ani urement (mass/volume)Ordered By: Miriam Johnson on 06-01-2023 Calcium [Mass/Vol] 8.4 mg/dL 8.5-10.1 [facility] Serum or plasma creatinine m easurement (mass/volume)Ordered By: Miriam Johnson on 06-01-2023 Creatinine [Mass/Vol] 1.03 mg/dL 0.70-1.30 [facility] Comment on above: The validity of the calculated GFR & GFRAA in patients over 70 years has not been determined. Clinical correlation is essential. Serum or plasma urea nitroge n measurement (mass/volume)Ordered By: Miriam Johnson on 06-01-2023 Urea nitrogen [Mass/Vol] 7 mg/dL 7-18 [facility] Thin prep Papanicolaou smear with manual screeningOrdered By: Miriam Johnson on 06-01-2023 Thin prep Papanicolaou smear with manual screening 2 5-15 [facility] Vancomycin troughOrdered By: Gatito Chase on 06-01-2023 Vancomycin trough [Mass/Vol] 18.7 ug/mL 5.0-15.0 [facility] Comment on above: VANCOMYCIN STANDARED DRUG THERAPY TROUGH LEVEL: 5.0 - 15.0 mg/L VANCOMYCIN HIGH INTENSITY THERAPY TROUGH LEVEL: 15.0 - 20.0 mg/L High Intensity therapy recommended for serious lifethreatening infections include:- Vwwmzufnzz-Ibqeudsjycei-Teomwdbyl (Ventilator/Healtcare Associated)-Sepsis PLEASE CONTACT PHARMACY SERVICES (#9528) FOR INTERPRETATIONOF RESULTS. Basophil percentageOrdered B y: Suzi Castaneda on 05-30-2023 Bilirubin [Mass/Vol] 1.30 mg/dL 0.20-1.00 [facility] Comment on above: For patients on eltr ombopag therapy, use of Dimension [place] TBIL is not recommended. Protein [Mass/Vol] 6.7 g/dL 6.4-8.2 [facility] Basophil percentageOrdered B y: Antonio Ferguson on 05-30-2023 Lactate [Moles/Vol] 1.7 mmol/L 0.4-2.0 [facility] Laboratory - Chemistry and C hemistry - challengeOrdered By: Suzi Castaneda on 05-30-2023 ALP [Catalytic activity/Vol] 60 U/L 45-117 [facility] ALT [Catalytic activity/Vol] 52 U/L 16-61 [facility] Globulin (S) [Mass/Vol] 3.2 g/dL 2.2-4.2 [facility] Serum or plasma albumin ani urement (mass/volume)Ordered By: Suzi Castaneda on 05-30-2023 Albumin [Mass/Vol] 3.5 g/dL 3.2-5.0 [facility] Serum or plasma albumin/glob ulin mass ratioOrdered By: Suzi Castaneda on 05-30-2023 Albumin/Globulin [Mass ratio] 1.1 {ratio} 0.9-2.4 [facility] Serum procalcitonin measurem entOrdered By: Suzi Castaneda on 05-30-2023 Procalcitonin [Mass/Vol] 1.28 ng/mL 0.00-0.09 [facility] Comment on above: A procalcitonin (PCT ) level above 2.0 ng/mL on the first day of ICU admission is associated with a high risk for progression to severe sepsis and/or septic shock. A PCT level below 0.5 ng/mL on the first day of ICU admission is associated with a low risk for progression to severe and/or septic shock. Note: Concentrations <0.5 ng/mL do not exclude an infection on account of localized infections (without systemic signs) which can be associated with such low concentrations, or a systemic infection in its initial stages (<6 hours). Furthermore, increased procalcitonin can occur without infection. PCT concentrations between 0.5 and 2.0 ng/mL should be interpreted taking into account the patient's history. It is recommended to retest PCT within 6-24 hours if any concentrations <2 ng/mL are obtained. Thin prep Papanicolaou smear with manual screeningOrdered By: Suzi Castaneda on 05-30-2023 Thin prep Papanicolaou smear with manual screening 20 U/L 15-37 [facility] Absolute lymphocyte countOrd ered By: Antonio Ferguson on 05-29-2023 Lymphocytes Auto (Unsp spec) [#/Vol] 0.50 10*3/uL 0.83-4.51 [facility] Basophil percentageOrdered B y: Antonio Ferguson on 05-29-2023 Chloride [Moles/Vol] 106 mmol/L 98-107 [facility] Glucose [Mass/Vol] 122 mg/dL 74-106 [facility] Comment on above: Fasting Glucose resu lt from 100 to 125 mg/dL suggests IMPAIRED HOMEOSTASIS per A.D.A. criteria. Lactate [Moles/Vol] 2.2 mmol/L 0.4-2.0 [facility] Comment on above: Critical Result(s) C alled at: 00:16:26 05/30/2023 by: Shayne Adam TO ALEX BARRETT RN (ED) Results read back by same. Potassium [Moles/Vol] 4.1 mmol/L 3.5-5.1 [facility] Comment on above: Moderate Hemolysis, Result may be falsely increased. Sodium [Moles/Vol] 135 mmol/L 136-145 [facility] Basophils/100 WBC (Bld) 0.3 % 0-1 [facility] Eosinophils/100 WBC (Bld) 0.0 % 0-5 [facility] Neutrophils (Bld) [#/Vol] 18.1 10*3/uL 2.0-7.7 [facility] Neutrophils/100 WBC (Bld) 92.0 % 47-70 [facility] WBC (Bld) [#/Vol] 19.7 10*3/uL 4.4-11.0 [facility] Blood erythrocytes count (nu mber/volume)Ordered By: Antonio Ferguson on 05-29-2023 RBC (Bld) [#/Vol] 4.43 10*6/uL 4.6-6.2 [facility] Blood hemoglobin measurement (mass/volume)Ordered By: Antonio Ferguson on 05-29-2023 Hemoglobin (Bld) [Mass/Vol] 13.9 g/dL 13.0-16.5 [facility] Blood lymphocytes/100 leukoc ytesOrdered By: Antonio Ferguson on 05-29-2023 Lymphocytes/100 WBC (Bld) 2.5 % 19-41 [facility] Blood monocytes/100 leukocyt esOrdered By: Antonio Ferguson on 05-29-2023 Monocytes/100 WBC (Bld) 4.6 % 0-10 [facility] Blood platelet mean volumeOr dered By: Antonio Ferguson on 05-29-2023 Platelet mean volume (Bld) [Entitic vol] 10.0 fL 6.2-12.0 [facility] Determination of erythrocyte mean corpuscular volume (MCV)Ordered By: Antonio Ferguson on 05-29-2023 MCV (RBC) [Entitic vol] 90.3 fL 80-94 [facility] Hematocrit Auto (Bld) [Volum e fraction]Ordered By: Antonio Ferguson on 05-29-2023 Hematocrit (Bld) [Volume fraction] 40.0 % 40-54 [facility] Laboratory - Chemistry and C hemistry - challengeOrdered By: Antonio Ferguson on 05-29-2023 CO2 [Moles/Vol] 21.0 mmol/L 21.0-32.0 [facility] Urea nitrogen/Creatinine [Mass ratio] 10.9 mg/mg 10-20 [facility] Laboratory - Hematology and Cell countsOrdered By: Antonio Ferguson on 05-29-2023 Erythrocyte distribution width (RBC) [Entitic vol] 40.3 fL 35.1-43.9 [facility] Erythrocyte distribution width (RBC) [Ratio] 12.2 % 11.6-14.6 [facility] Immature granulocytes/100 WBC (Bld) 0.600 % 0.0-0.9 [facility] Comment on above: IG% - Immature Granu locytes (promyelocytes, myelocytes and metamyelocytes) > 1% indicates that a LEFT SHIFT is Present. MCH (RBC) [Entitic mass] 31.4 pg 27.0-32.0 [facility] Nucleated RBC/100 WBC (Bld) [Ratio] 0 % 0-5 [facility] Laboratory - Microbiology an d Antimicrobial susceptibilityOrdered By: Antonio Ferguson on 05-29-2023 Bacteria identified Cx Nom (Bld) No growth in 5 days. [facility] MCHC Auto (RBC) [Mass/Vol]Or dered By: Antonio Ferguson on 05-29-2023 MCHC (RBC) [Mass/Vol] 34.8 g/dL 32-36 [facility] No Panel InformationOrdered By: Antonio Ferguson on 05-29-2023 Estimated Creatinine Clearance Calc 90.64 ml/min [facility] Estimated GFR (MDRD) Amer 75 mL/min >60 [facility] Comment on above: GFR Calc Estimated GFR (MDRD) Non-Af Amer 62 mL/min >60 [facility] Comment on above: Non- GFR Calc Platelets bldOrdered By: Shreya Ferguson on 05-29-2023 Platelets (Bld) [#/Vol] 294 10*3/uL 150-450 [facility] Serum or plasma calcium ani urement (mass/volume)Ordered By: Antonio Ferguson on 05-29-2023 Calcium [Mass/Vol] 9.3 mg/dL 8.5-10.1 [facility] Serum or plasma creatinine m easurement (mass/volume)Ordered By: Antonio Ferguson on 05-29-2023 Creatinine [Mass/Vol] 1.37 mg/dL 0.70-1.30 [facility] Comment on above: The validity of the calculated GFR & GFRAA in patients over 70 years has not been determined. Clinical correlation is essential. Serum or plasma urea nitroge n measurement (mass/volume)Ordered By: Antonio Ferguson on 05-29-2023 Urea nitrogen [Mass/Vol] 15 mg/dL 7-18 [facility] Thin prep Papanicolaou smear with manual screeningOrdered By: Antonio Ferguson on 05-29-2023 Thin prep Papanicolaou smear with manual screening 8 5-15 [facility] Basophil percentageOrdered B y: HEALTH ASSESSMENT on 05-25-2023 Cholesterol [Mass/Vol] 190 mg/dL <200 [facility] Comment on above: <200 mg/dL Desirable 200-240 mg/dL Borderline >240 mg/dL High Risk Glucose [Mass/Vol] 100 mg/dL 74-106 [facility] Comment on above: Fasting Glucose resu lt from 100 to 125 mg/dL suggests IMPAIRED HOMEOSTASIS per A.D.A. criteria. Triglyceride [Mass/Vol] 97 mg/dL <199 [facility] Comment on above: The drugs N-Acetylcy steine and Metamizole may falsely depress this assay.Serum Triglycerides Reference Interval Normal <150 mg/dL Borderline high 150 - 199 mg/dL High 200 - 499 mg/dL Very High > or = 500 mg/dL Serum or plasma cholesterol in HDL measurement (mass/volume)Ordered By: HEALTH ASSESSMENT on 05-25-2023 Cholesterol in HDL [Mass/Vol] 39 mg/dL >40 [facility] Comment on above: The drugs N-Acetylcy steine and Metamizole may falsely depress this assay. Reference Range HDL <40 mg/dL Low HDL Cholesterol HDL >or= 60 mg/dL High HDL Cholesterol Serum or plasma cholesterol in VLDL measurement (mass/volume)Ordered By: HEALTH ASSESSMENT on 05-25-2023 Cholesterol in VLDL [Mass/Vol] 19 mg/dL 5-40 [facility] Serum or plasma low density lipoprotein (LDL) cholesterol measurement (mass/volume)Ordered By: HEALTH ASSESSMENT on 05-25-2023 Cholesterol in LDL [Mass/Vol] 132 mg/dL 0-130 [facility] Absolute lymphocyte countOrd ered By: Drew Mayen on 04-12-2023 Lymphocytes Auto (Unsp spec) [#/Vol] 1.65 10*3/uL 0.83-4.51 [facility] Basophil percentageOrdered B y: Drew Mayen on 04-12-2023 Basophils/100 WBC (Bld) 0.7 % 0-1 [facility] Bilirubin [Mass/Vol] 0.80 mg/dL 0.20-1.00 [facility] Comment on above: For patients on eltr ombopag therapy, use of Dimension [place] TBIL is not recommended. Chloride [Moles/Vol] 108 mmol/L 98-107 [facility] Cholesterol [Mass/Vol] 171 mg/dL <200 [facility] Comment on above: <200 mg/dL Desirable 200-240 mg/dL Borderline >240 mg/dL High Risk Eosinophils/100 WBC (Bld) 2.0 % 0-5 [facility] Glucose [Mass/Vol] 101 mg/dL 74-106 [facility] Comment on above: Fasting Glucose resu lt from 100 to 125 mg/dL suggests IMPAIRED HOMEOSTASIS per A.D.A. criteria. Neutrophils (Bld) [#/Vol] 5.1 10*3/uL 2.0-7.7 [facility] Neutrophils/100 WBC (Bld) 69.3 % 47-70 [facility] Potassium [Moles/Vol] 4.0 mmol/L 3.5-5.1 [facility] Protein [Mass/Vol] 7.1 g/dL 6.4-8.2 [facility] Sodium [Moles/Vol] 141 mmol/L 136-145 [facility] Triglyceride [Mass/Vol] 112 mg/dL <199 [facility] Comment on above: The drugs N-Acetylcy steine and Metamizole may falsely depress this assay.Serum Triglycerides Reference Interval Normal <150 mg/dL Borderline high 150 - 199 mg/dL High 200 - 499 mg/dL Very High > or = 500 mg/dL WBC (Bld) [#/Vol] 7.4 10*3/uL 4.4-11.0 [facility] Blood erythrocytes count (nu mber/volume)Ordered By: Drew Mayen on 04-12-2023 RBC (Bld) [#/Vol] 4.70 10*6/uL 4.6-6.2 [facility] Blood hemoglobin measurement (mass/volume)Ordered By: Drew Mayen on 04-12-2023 Hemoglobin (Bld) [Mass/Vol] 14.6 g/dL 13.0-16.5 [facility] Blood lymphocytes/100 leukoc ytesOrdered By: Drew Mayen on 04-12-2023 Lymphocytes/100 WBC (Bld) 22.3 % 19-41 [facility] Blood monocytes/100 leukocyt esOrdered By: Drew Mayen on 04-12-2023 Monocytes/100 WBC (Bld) 5.4 % 0-10 [facility] Blood platelet mean volumeOr dered By: Drew Mayen on 04-12-2023 Platelet mean volume (Bld) [Entitic vol] 10.4 fL 6.2-12.0 [facility] Determination of erythrocyte mean corpuscular volume (MCV)Ordered By: Drew Mayen on 04-12-2023 MCV (RBC) [Entitic vol] 90.6 fL 80-94 [facility] Hematocrit Auto (Bld) [Volum e fraction]Ordered By: [email or web address] Mayen on 04-12-2023 Hematocrit (Bld) [Volume fraction] 42.6 % 40-54 [facility] Iron measurement (mass/mass) Ordered By: Drew Mayen on 04-12-2023 Iron (Unsp spec) [Mass/Mass] 110 ug/dL 65-175 [facility] Laboratory - Chemistry and C hemistry - challengeOrdered By: Drew Mayen on 04-12-2023 ALP [Catalytic activity/Vol] 71 U/L 45-117 [facility] ALT [Catalytic activity/Vol] 61 U/L 16-61 [facility] CO2 [Moles/Vol] 26.0 mmol/L 21.0-32.0 [facility] Globulin (S) [Mass/Vol] 3.1 g/dL 2.2-4.2 [facility] Urea nitrogen/Creatinine [Mass ratio] 9.3 mg/mg 10-20 [facility] Laboratory - Hematology and Cell countsOrdered By: Drew Mayen on 04-12-2023 Erythrocyte distribution width (RBC) [Entitic vol] 41.0 fL 35.1-43.9 [facility] Erythrocyte distribution width (RBC) [Ratio] 12.5 % 11.6-14.6 [facility] Immature granulocytes/100 WBC (Bld) 0.300 % 0.0-0.9 [facility] Comment on above: IG% - Immature Granu locytes (promyelocytes, myelocytes and metamyelocytes) > 1% indicates that a LEFT SHIFT is Present. MCH (RBC) [Entitic mass] 31.1 pg 27.0-32.0 [facility] Nucleated RBC/100 WBC (Bld) [Ratio] 0 % 0-5 [facility] MCHC Auto (RBC) [Mass/Vol]Or dered By: Drew Mayen on 04-12-2023 MCHC (RBC) [Mass/Vol] 34.3 g/dL 32-36 [facility] No Panel InformationOrdered By: Drew Mayen on 04-12-2023 Estimated GFR (MDRD) Amer 100 mL/min >60 [facility] Comment on above: GFR Calc Estimated GFR (MDRD) Non-Af Amer 82 mL/min >60 [facility] Comment on above: Non- GFR Calc Total Iron Binding Capacity 321 ug/dL 250-450 [facility] Platelets bldOrdered By: Sagar Mayen on 04-12-2023 Platelets (Bld) [#/Vol] 349 10*3/uL 150-450 [facility] Serum or plasma albumin ani urement (mass/volume)Ordered By: Drew Mayen on 04-12-2023 Albumin [Mass/Vol] 4.0 g/dL 3.2-5.0 [facility] Serum or plasma albumin/glob ulin mass ratioOrdered By: Drew Mayen on 04-12-2023 Albumin/Globulin [Mass ratio] 1.3 {ratio} 0.9-2.4 [facility] Serum or plasma calcium ani urement (mass/volume)Ordered By: Drew Mayen on 04-12-2023 Calcium [Mass/Vol] 9.1 mg/dL 8.5-10.1 [facility] Serum or plasma cholesterol in HDL measurement (mass/volume)Ordered By: Drew Mayen on 04-12-2023 Cholesterol in HDL [Mass/Vol] 37 mg/dL >40 [facility] Comment on above: The drugs N-Acetylcy steine and Metamizole may falsely depress this assay. Reference Range HDL <40 mg/dL Low HDL Cholesterol HDL >or= 60 mg/dL High HDL Cholesterol Serum or plasma cholesterol in VLDL measurement (mass/volume)Ordered By: Drew Mayen on 04-12-2023 Cholesterol in VLDL [Mass/Vol] 22 mg/dL 5-40 [facility] Serum or plasma creatinine m easurement (mass/volume)Ordered By: Drew Mayen on 04-12-2023 Creatinine [Mass/Vol] 1.07 mg/dL 0.70-1.30 [facility] Comment on above: The validity of the calculated GFR & GFRAA in patients over 70 years has not been determined. Clinical correlation is essential. Serum or plasma ferritin mariam surement (mass/volume)Ordered By: Drew Mayen on 04-12-2023 Ferritin [Mass/Vol] 121 ng/mL 26-388 [facility] Serum or plasma low density lipoprotein (LDL) cholesterol measurement (mass/volume)Ordered By: Drew Mayen on 04-12-2023 Cholesterol in LDL [Mass/Vol] 112 mg/dL 0-130 [facility] Serum or plasma urea nitroge n measurement (mass/volume)Ordered By: Drew Mayen on 04-12-2023 Urea nitrogen [Mass/Vol] 10 mg/dL 7-18 [facility] Thin prep Papanicolaou smear with manual screeningOrdered By: Drew Mayen on 04-12-2023 Thin prep Papanicolaou smear with manual screening 29 U/L 15-37 [facility] Thin prep Papanicolaou smear with manual screening 7 - [facility] Absolute lymphocyte counton 11-24-2022 Lymphocytes Auto (Unsp spec) [#/Vol] 1.41 10*3/uL 0.83-4.51 [facility] Work Phone: Basophil percentageon 2021 Basophils/100 WBC (Bld) 0.4 % 0-1 [facility] Work Phone: Bilirubin [Mass/Vol] 1.10 mg/dL 0.20-1.00 [facility] Work Phone: Comment on above: For patients on eltr ombopag therapy, use of Dimension [place] TBIL is not recommended. Chloride [Moles/Vol] 107 mmol/L 98-107 [facility] Work Phone: Eosinophils/100 WBC (Bld) 0.1 % 0-5 [facility] Work Phone: Glucose [Mass/Vol] 120 mg/dL 74-106 [facility] Work Phone: Comment on above: Fasting Glucose resu lt from 100 to 125 mg/dL suggests IMPAIRED HOMEOSTASIS per A.D.A. criteria. Neutrophils (Bld) [#/Vol] 7.3 10*3/uL 2.0-7.7 [facility] Work Phone: Neutrophils/100 WBC (Bld) 75.7 % 47-70 [facility] Work Phone: Potassium [Moles/Vol] 3.6 mmol/L 3.5-5.1 [facility] Work Phone: [phone] Protein [Mass/Vol] 7.1 g/dL 6.4-8.2 [facility] Work Phone: Sodium [Moles/Vol] 140 mmol/L 136-145 [facility] Work Phone: [phone] WBC (Bld) [#/Vol] 9.7 10*3/uL 4.4-11.0 [facility] Work Phone: Blood erythrocytes count (nu mber/volume)on 11-24-2022 RBC (Bld) [#/Vol] 4.53 10*6/uL 4.6-6.2 [facility] Work Phone: Blood hemoglobin measurement (mass/volume)on 11-24-2022 Hemoglobin (Bld) [Mass/Vol] 13.8 g/dL 13.0-16.5 [facility] Work Phone: Blood lymphocytes/100 leukoc yteson 11-24-2022 Lymphocytes/100 WBC (Bld) 14.5 % 19-41 [facility] Work Phone: Blood monocytes/100 leukocyt eson 11-24-2022 Monocytes/100 WBC (Bld) 9.0 % 0-10 [facility] Work Phone: Blood platelet mean volumeon 11-24-2022 Platelet mean volume (Bld) [Entitic vol] 10.2 fL 6.2-12.0 [facility] Work Phone: Determination of erythrocyte mean corpuscular volume (MCV)on 11-24-2022 MCV (RBC) [Entitic vol] 92.5 fL 80-94 [facility] Work Phone: Hematocrit Auto (Bld) [Volum e fraction]on 11-24-2022 Hematocrit (Bld) [Volume fraction] 41.9 % 40-54 [facility] Work Phone: Iron measurement (mass/mass) on 11-24-2022 Iron (Unsp spec) [Mass/Mass] 26 ug/dL 65-175 [facility] Work Phone: Laboratory - Chemistry and C hemistry - challengeon 11-24-2022 ALP [Catalytic activity/Vol] 66 U/L 45-117 [facility] Work Phone: ALT [Catalytic activity/Vol] 43 U/L 16-61 [facility] Work Phone: CO2 [Moles/Vol] 26.0 mmol/L 21.0-32.0 [facility] Work Phone: [phone] Cobalamin (Vitamin B12) [Mass/Vol] 285 pg/mL 211-911 [facility] Work Phone: Globulin (S) [Mass/Vol] 3.6 g/dL 2.2-4.2 [facility] Work Phone: Urea nitrogen/Creatinine [Mass ratio] 9.0 mg/mg 10-20 [facility] Work Phone: Laboratory - Hematology and Cell countson 11-24-2022 Erythrocyte distribution width (RBC) [Entitic vol] 42.7 fL 35.1-43.9 [facility] Work Phone: Erythrocyte distribution width (RBC) [Ratio] 12.6 % 11.6-14.6 [facility] Work Phone: [phone] Immature granulocytes/100 WBC (Bld) 0.300 % 0.0-0.9 [facility] Work Phone: Comment on above: IG% - Immature Granu locytes (promyelocytes, myelocytes and metamyelocytes) > 1% indicates that a LEFT SHIFT is Present. MCH (RBC) [Entitic mass] 30.5 pg 27.0-32.0 [facility] Work Phone: Nucleated RBC/100 WBC (Bld) [Ratio] 0 % 0-5 [facility] Work Phone: MCHC Auto (RBC) [Mass/Vol]on 11-24-2022 MCHC (RBC) [Mass/Vol] 32.9 g/dL 32-36 [facility] Work Phone: [phone] No Panel Informationon 11-24 Estimated Creatinine Clearance Calc 124.17 ml/min [facility] Work Phone: Estimated GFR (MDRD) Amer 109 mL/min >60 [facility] Work Phone: Comment on above: GFR Calc Estimated GFR (MDRD) Non-Af Amer 90 mL/min >60 [facility] Work Phone: Comment on above: Non- GFR Calc Total Iron Binding Capacity 289 ug/dL 250-450 [facility] Work Phone: Platelets bldon 11-24-2022 Platelets (Bld) [#/Vol] 323 10*3/uL 150-450 [facility] Work Phone: Serum or plasma albumin ani urement (mass/volume)on 11-24-2022 Albumin [Mass/Vol] 3.5 g/dL 3.2-5.0 [facility] Work Phone: Serum or plasma albumin/glob ulin mass ratioon 11-24-2022 Albumin/Globulin [Mass ratio] 1.0 {ratio} 0.9-2.4 [facility] Work Phone: Serum or plasma calcium ani urement (mass/volume)on 11-24-2022 Calcium [Mass/Vol] 8.4 mg/dL 8.5-10.1 [facility] Work Phone: Serum or plasma creatinine m easurement (mass/volume)on 11-24-2022 Creatinine [Mass/Vol] 1.00 mg/dL 0.70-1.30 [facility] Work Phone: Comment on above: The validity of the calculated GFR & GFRAA in patients over 70 years has not been determined. Clinical correlation is essential. Serum or plasma ferritin mariam surement (mass/volume)on 11-24-2022 Ferritin [Mass/Vol] 222 ng/mL 26-388 [facility] Work Phone: Serum or plasma folate measu rement (mass/volume)on 11-24-2022 Folate [Mass/Vol] 17.70 ng/mL 3.1-55.4 [facility] Work Phone: Serum or plasma iron saturat ion measurement (mass fraction)on 11-24-2022 Iron saturation [Mass fraction] 9.0 % 15.0-55.0 [facility] Work Phone: Serum or plasma urea nitroge n measurement (mass/volume)on 11-24-2022 Urea nitrogen [Mass/Vol] 9 mg/dL 7-18 [facility] Work Phone: Thin prep Papanicolaou smear with manual screeningon 11-24-2022 Thin prep Papanicolaou smear with manual screening 15 U/L 15-37 [facility] Work Phone: Thin prep Papanicolaou smear with manual screening 7 5-15 [facility] Work Phone: Absolute lymphocyte counton 11-23-2022 Lymphocytes Auto (Unsp spec) [#/Vol] 1.31 10*3/uL 0.83-4.51 [facility] Work Phone: Basophil percentageon 2021 Basophils/100 WBC (Bld) 0.2 % 0-1 [facility] Work Phone: Eosinophils/100 WBC (Bld) 0.1 % 0-5 [facility] Work Phone: Neutrophils (Bld) [#/Vol] 7.2 10*3/uL 2.0-7.7 [facility] Work Phone: Neutrophils/100 WBC (Bld) 77.5 % 47-70 [facility] Work Phone: WBC (Bld) [#/Vol] 9.3 10*3/uL 4.4-11.0 [facility] Work Phone: [phone] Blood erythrocytes count (nu mber/volume)on 11-23-2022 RBC (Bld) [#/Vol] 3.60 10*6/uL 4.6-6.2 [facility] Blood hemoglobin measurement (mass/volume)on 11-23-2022 Hemoglobin (Bld) [Mass/Vol] 11.1 g/dL 13.0-16.5 [facility] Work Phone: Blood lymphocytes/100 leukoc yteson 11-23-2022 Lymphocytes/100 WBC (Bld) 14.2 % 19-41 [facility] Work Phone: Blood monocytes/100 leukocyt eson 11-23-2022 Monocytes/100 WBC (Bld) 7.6 % 0-10 [facility] Work Phone: Blood platelet mean volumeon 11-23-2022 Platelet mean volume (Bld) [Entitic vol] 10.3 fL 6.2-12.0 [facility] Work Phone: Determination of erythrocyte mean corpuscular volume (MCV)on 11-23-2022 MCV (RBC) [Entitic vol] 95.0 fL 80-94 [facility] Work Phone: Hematocrit Auto (Bld) [Volum e fraction]on 11-23-2022 Hematocrit (Bld) [Volume fraction] 34.2 % 40-54 [facility] Work Phone: Laboratory - Hematology and Cell countson 11-23-2022 Erythrocyte distribution width (RBC) [Entitic vol] 42.8 fL 35.1-43.9 [facility] Work Phone: Erythrocyte distribution width (RBC) [Ratio] 12.4 % 11.6-14.6 [facility] Work Phone: [phone] Immature granulocytes/100 WBC (Bld) 0.400 % 0.0-0.9 [facility] Work Phone: Comment on above: IG% - Immature Granu locytes (promyelocytes, myelocytes and metamyelocytes) > 1% indicates that a LEFT SHIFT is Present. MCH (RBC) [Entitic mass] 30.8 pg 27.0-32.0 [facility] Work Phone: Nucleated RBC/100 WBC (Bld) [Ratio] 0 % 0-5 [facility] Work Phone: MCHC Auto (RBC) [Mass/Vol]on 11-23-2022 MCHC (RBC) [Mass/Vol] 32.5 g/dL 32-36 [facility] Work Phone: Platelets bldon 11-23-2022 Platelets (Bld) [#/Vol] 246 10*3/uL 150-450 [facility] Work Phone: NUC LYMPHOSCINTIGRAPHYon NUC LYMPHOSCINTIGRAPHY EXAM: NUC LYMPHOSCINTIGRAPHY, 12/26/2021 11:41 AM CLINICAL INDICATIONS: right medial foot melanoma, site photographed; COMPARISON: No prior studies available for comparison. TECHNIQUE: Four intracutaneous injections with a total of 0.44 microcuries Tc 99m filtered sulfur colloid and a total of 0.4 mL of normal saline were made at the 3, 6, 9 and 12 o'clock positions 1-2cm from the margins of the melanoma/surgical site located on the right foot. Dynamic images of the right lower extremity were obtained for 20 minutes followed by static images of the right lower extremity over 40 minutes. Lymphoscintigraphy Site Identification Guidelines: a. Patient has been tattooed at injection site or injection site photographed prior to arrival. b. Description of site clearly noted on the order. c. Description of site in the H and P is clear. d. Site was confirmed with patient or immediate family member. 1. Were three of the four identification parameters used, with one of the parameters being identification of the tattoo or photograph? Yes FINDINGS: Lymph node activity was noted in the right inguinal region. IMPRESSION: Lymphoscintigraphy with activity present in a right inguinal lymph node. I personally viewed and interpreted these images and I have reviewed and approved this report. Normal [facility] CBC AND ELECTRONIC DIFFon Basophils (Bld) [#/Vol] 0.07 10*3/uL Normal 0.00-0.09 [facility] Comment on above: Performed By: #### L [id number] #### [facility] (DEFAULT) [address] [address] Basophils/100 WBC (Bld) 0.8 % Normal [facility] Comment on above: Performed By: #### L [id number] #### [facility] (DEFAULT) [address] [address] DIFF STATUS Electronic Differential Normal [facility] Comment on above: Performed By: #### L [id number] #### [facility] (DEFAULT) [address] [address] Eosinophils (Bld) [#/Vol] 0.09 10*3/uL Normal 0.00-0.48 [facility] Comment on above: Performed By: #### L [id number] #### [facility] (DEFAULT) [address] [address] Eosinophils/100 WBC (Bld) 1.1 % Normal [facility] Comment on above: Performed By: #### L [id number] #### [facility] (DEFAULT) [address] [address] Hematocrit (Bld) [Volume fraction] 46.5 % Normal 39.6-48.8 [facility] Comment on above: Performed By: #### L [id number] #### [facility] (DEFAULT) [address] [address] Hemoglobin (Bld) [Mass/Vol] 16.1 g/dL Normal 13.4-16.8 [facility] Comment on above: Performed By: #### L [id number] #### [facility] (DEFAULT) [address] [address] Immature Grans % 0.5 % Normal [facility] Comment on above: Performed By: #### L [id number] #### [facility] (DEFAULT) [address] [address] Immature Grans Absolute 0.04 K/uL Normal <=0.08 [facility] Comment on above: Performed By: #### L [id number] #### [facility] (DEFAULT) [address] [address] Lymphocytes (Bld) [#/Vol] 1.94 10*3/uL Normal 0.83-3.57 [facility] Comment on above: Performed By: #### L [id number] #### [facility] (DEFAULT) [address] [address] Lymphocytes/100 WBC (Bld) 23.1 % Normal [facility] Comment on above: Performed By: #### L [id number] #### [facility] (DEFAULT) [address] [address] MCV (RBC) [Entitic vol] 89.4 fL Normal 79.0-94.5 [facility] Comment on above: Performed By: #### L [id number] #### [facility] (DEFAULT) [address] [place] [address] Mean Cell Hgb 31.0 pg Normal 26.1-33.3 [facility] Comment on above: Performed By: #### L [id number] #### [facility] (DEFAULT) [address] [place] [address] Mean Cell Hgb Conc 34.6 g/dL Normal 31.9-36.5 [facility] Comment on above: Performed By: #### L [id number] #### [facility] (DEFAULT) [address] [place] [address] Monocytes (Bld) [#/Vol] 0.50 10*3/uL Normal 0.24-0.93 [facility] Comment on above: Performed By: #### L [id number] #### [facility] (DEFAULT) [address] [place] [address] Monocytes/100 WBC (Bld) 6.0 % Normal [facility] Comment on above: Performed By: #### L [id number] #### [facility] (DEFAULT) [address] [place] [address] Nucleated RBC 0.0 /100 WBC Normal <=0.2 [facility] Comment on above: Performed By: #### L [id number] #### [facility] (DEFAULT) [address] [place] [address] Platelet mean volume (Bld) [Entitic vol] 10.2 fL Normal 8.7-12.3 [facility] Comment on above: Performed By: #### L [id number] #### [facility] (DEFAULT) [address] [place] [address] Platelets (Bld) [#/Vol] 427 10*3/uL High 146-337 [facility] Comment on above: Performed By: #### L [id number] #### [facility] (DEFAULT) [address] [place] [address] RBC (Bld) [#/Vol] 5.20 10*6/uL Normal 4.38-5.83 [facility] Comment on above: Performed By: #### L [id number] #### [facility] (DEFAULT) [address] [address] RBC Distribution 12.0 % Normal 10.9-14.3 [facility] Comment on above: Performed By: #### L [id number] #### [facility] (DEFAULT) [address] [address] Segs + Bands Auto 68.5 % Normal [facility] Comment on above: Performed By: #### L [id number] #### [facility] (DEFAULT) [address] [address] Segs + Bands,Absolute Auto 5.76 K/uL Normal 1.57-6.19 [facility] Comment on above: Performed By: #### L [id number] #### [facility] (DEFAULT) [address] [address] WBC (Bld) [#/Vol] 8.40 10*3/uL Normal 3.73-10.10 [facility] Comment on above: Performed By: #### L [id number] #### [facility] (DEFAULT) [address] [address] CMPN WITHOUT GLUCOSEon 12-10 Albumin [Mass/Vol] 4.9 g/dL Normal 3.5-5.0 [facility] Comment on above: Performed By: #### C MPNG #### [facility] (DEFAULT) [address] [address] ALP [Catalytic activity/Vol] 69 U/L Normal 32-126 [facility] Comment on above: Performed By: #### C MPNG #### [facility] (DEFAULT) [address] [address] ALT [Catalytic activity/Vol] 52 U/L Normal 10-52 [facility] Comment on above: Performed By: #### C MPNG #### [facility] (DEFAULT) [address] [place] [address] Anion gap [Moles/Vol] 14 mmol/L Normal 7-17 [facility] Comment on above: Performed By: #### C MPNG #### [facility] (DEFAULT) [address] [place] [address] AST [Catalytic activity/Vol] 27 U/L Normal 10-39 [facility] Comment on above: Performed By: #### C MPNG #### U [facility] (DEFAULT) [address] [place] [address] 22939 Bilirubin [Mass/Vol] 0.6 mg/dL Normal <1.5 [facility] Comment on above: Performed By: #### C MPNG #### U [facility] (DEFAULT) [address] [place] [address] 12672 Calcium [Mass/Vol] 9.7 mg/dL Normal 8.6-10.5 [facility] Comment on above: Performed By: #### C MPNG #### U [facility] (DEFAULT) [address] [place] [address] 23443 Chloride [Moles/Vol] 101 mmol/L Normal 98-108 [facility] Comment on above: Performed By: #### C MPNG #### U [facility] (DEFAULT) [address] [place] [address] 31626 CO2 [Moles/Vol] 28 mmol/L Normal 21-31 [facility] Comment on above: Performed By: #### C MPNG #### U [facility] (DEFAULT) [address] [place] [address] 39328 Creatinine [Mass/Vol] 1.09 mg/dL Normal 0.70-1.30 [facility] Comment on above: Performed By: #### C MPNG #### U [facility] (DEFAULT) [address] [place] [address] 31394 EST GFR, >=60 Normal >=60 [facility] Comment on above: Performed By: #### C MPNG #### U [facility] (DEFAULT) [address] [place] [address] 11655 EST GFR,Non >=60 Normal >=60 [facility] Comment on above: Performed By: #### C MPNG #### U [facility] (DEFAULT) [address] [place] [address] 68917 Potassium [Moles/Vol] 3.4 mmol/L Low 3.5-5.0 [facility] Comment on above: Performed By: #### C MPNG #### U [facility] (DEFAULT) [address] [place] [address] 98380 Protein [Mass/Vol] 7.8 g/dL Normal 6.4-8.3 [facility] Comment on above: Performed By: #### C MPNG #### [facility] (DEFAULT) [address] [place] [address] 37334 Sodium [Moles/Vol] 140 mmol/L Normal 133-143 [facility] Comment on above: Performed By: #### C MPNG #### [facility] (DEFAULT) [address] [place] [address] 54418 Urea nitrogen [Mass/Vol] 11 mg/dL Normal 7-25 [facility] Comment on above: Performed By: #### C MPNG #### [facility] (DEFAULT) [address] [place] [address] 02104 Urea nitrogen/Creatinine [Mass ratio] 10 mg/mg Normal [facility] Comment on above: Performed By: #### C MPNG #### U [facility] (DEFAULT) [address] [place] [address] 91978 XR CHEST PA AND LATERALon XR CHEST PA AND LATERAL EXAM: XR CHEST PA AND LATERAL, 12/10/2021 10:45 AM COMPARISON: None available. 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 Pleural Spaces: No pleural effusion. No pneumothorax. Mediastinum and Linda: Normal Cardiac silhouette and great vessels: Normal heart size. Unremarkable aorta. Chest Wall: Normal IMPRESSION: No active disease in the chest. Normal [facility] NM GALL BLADDER NO STIMULATI ONon 03-07-2021 NM GALL BLADDER NO STIMULATION NM GALL BLADDER NO STIMULATION Ordering Physician: Zay Prado MD 03/07/2021 10:50 AM RADIOISOTOPE HEPATOBILIARY SCAN: Clinical Statement: Possible bile leak, status post cholecystectomy 03/03/2021 Comparison: CT abdomen pelvis 02/15/2021 TECHNIQUE: The patient was injected with 6.0 mCi of technetium?99m labeled Mebrofenin. Sequential scintigraphic images were obtained over the right upper quadrant every minute for a total of 60 minutes. FINDINGS: There is homogeneous uptake in the liver. The gallbladder is surgically absent. Activity is shown in the small bowel within 60 minutes. Enterogastric reflux is demonstrated. No evidence of bile leak. IMPRESSION: Postcholecystectomy. Mild enterogastric reflux. No evidence of bile leak. Dictated by Hot Dimpling Machine Operator: Delfina Smith DO Reviewed and Signed by: Yamilka Kim MD ---- Electronic Signature on File ---- Signed By: Yamilka Kim MD [email or web address] Dictated: 03/07/2021 1:09 PM Signed: 03/07/2021 1:38 PM Reported By: YAMILKA KIM M.D. Signed By: YAMILKA KIM M.D. Normal [facility] BMPon 03-06-2021 Anion gap [Moles/Vol] 4 mmol/L Low 5-16 [facility] Comment on above: Performed By: #### L 500.43876, L500.21051, L500.07687, L500.49939 #### [facility] [address] [place] [address] Calcium [Mass/Vol] 9.7 mg/dL Normal 8.5-10.5 [facility] Comment on above: Result Comment: NOTE NEW NORMAL RANGE DUE TO REAGENT CHANGE Performed By: #### L 500.15836, L500.08196, L500.44882, L500.82177 #### [facility] [place] [address] Chloride [Moles/Vol] 106 mmol/L Normal 98-107 [facility] Comment on above: Performed By: #### L 500.24596, L500.71614, L500.93502, L500.82193 #### [facility] [address] [place] [address] CO2 [Moles/Vol] 32.0 mmol/L Normal 21-32 [facility] Comment on above: Performed By: #### L 500.69397, L500.16164, L500.10029, L500.95455 #### [facility] [address] [place] [address] Creatinine [Mass/Vol] 1.05 mg/dL Normal 0.5-1.4 [facility] Comment on above: Result Comment: NOTE NEW NORMAL RANGE DUE TO REAGENT CHANGE Patients receiving either N-Acetylcysteine (NAC) or Metamizole prior to venipuncture, may have falsely depressed results. Performed By: #### L 500.16324, L500.71271, L500.71295, L500.10910 #### [facility] [address] [place] [address] Glucose [Mass/Vol] 108 mg/dL High 70-100 [facility] Comment on above: Result Comment: 70-1 00- Normal Fasting; 100-125 Impaired Fasting; greater than 126 on more than one result- Diabetes. ADA guidelines. Results may be falsely elevated after the administration of Sulfapyridine. Results may be falsely depressed after the administration of Sulfasalazine. Performed By: #### L 500.04351, L500.87779, L500.96486, L500.49052 #### [facility] [place] [address] Potassium [Moles/Vol] 4.9 mmol/L Normal 3.5-5.1 [facility] Comment on above: Result Comment: Slig ht Hemolysis, Result may be affected. Performed By: #### L 500.54659, L500.04457, L500.16174, L500.98321 #### [facility] [address] [place] [address] Sodium [Moles/Vol] 142 mmol/L Normal 136-145 [facility] Comment on above: Performed By: #### L 500.88588, L500.75466, L500.70755, L500.35281 #### [facility] [address] [place] [address] Urea nitrogen [Mass/Vol] 10 mg/dL Normal 7-26 [facility] Comment on above: Performed By: #### L 500.16403, L500.56147, L500.08899, L500.95090 #### [facility] [address] [place] [address] Urea nitrogen/Creatinine [Mass ratio] 10 mg/mg Low 15-24 [facility] Comment on above: Performed By: #### L 500.06667, L500.69033, L500.20535, L500.79861 #### [facility] [address] [place] [address] CBC W/DIFFon 03-06-2021 BASO ABS 0.00 K/CU MM Normal 0-0.2 [facility] Comment on above: Performed By: #### L 200.27464 #### [facility] [address] [place] [address] Basophils/100 WBC (Bld) 0.2 % Normal 0-2 [facility] Comment on above: Performed By: #### L 200.75317 #### [facility] [address] [place] [address] EOS ABS 0.10 K/CU MM Normal 0-0.5 [facility] Comment on above: Performed By: #### L 200.17769 #### [facility] [address] [place] [address] Eosinophils/100 WBC (Bld) 1.1 % Normal 0-5 [facility] Comment on above: Performed By: #### L 200.67002 #### [facility] [address] [place] [address] Erythrocyte distribution width (RBC) [Ratio] 12.2 % Normal 11-14.5 [facility] Comment on above: Performed By: #### L 200.82403 #### [facility] [address] [place] [address] Hematocrit (Bld) [Volume fraction] 42.3 % Normal 41.0-53.0 [facility] Comment on above: Performed By: #### L 200.11687 #### [facility] [address] [place] [address] Hemoglobin (Bld) [Mass/Vol] 14.3 g/dL Normal 13.5-17.5 [facility] Comment on above: Performed By: #### L 200.11754 #### [facility] [address] [place] [address] IMMATR GRAN ABS 0.00 K/CU MM Normal Less than 2 [facility] Comment on above: Performed By: #### L 200.35006 #### [facility] [address] [place] [address] IMMATURE GRAN % 0.2 % Normal Less than 2 [facility] Comment on above: Performed By: #### L 200.52600 #### [facility] [address] [place] [address] LYMPH ABS 1.50 K/CU MM Normal 0.9-4.4 [facility] Comment on above: Performed By: #### L 200.83438 #### [facility] [address] [place] [address] Lymphocytes/100 WBC (Bld) 17.8 % Low 20-40 [facility] Comment on above: Performed By: #### L 200.66017 #### [facility] [address] [place] [address] MCHC (RBC) [Mass/Vol] 33.8 g/dL Normal 32.0-36.0 [facility] Comment on above: Performed By: #### L 200.42124 #### [facility] [address] [place] [address] MCV (RBC) [Entitic vol] 95.1 fL Normal 80.0-99.0 [facility] Comment on above: Performed By: #### L 200.40336 #### [facility] [address] [place] [address] MONO ABS 0.60 K/CU MM Normal 0.1-1.1 [facility] Comment on above: Performed By: #### L 200.66672 #### [facility] [address] [place] [address] Monocytes/100 WBC (Bld) 7.2 % Normal 2-10 [facility] Comment on above: Performed By: #### L 200.26963 #### [facility] [address] [place] [address] NEUTROPHIL ABS 6.10 K/CU MM Normal 2.0-8.3 [facility] Comment on above: Performed By: #### L 200.12692 #### [facility] [address] [place] [address] Neutrophils/100 WBC (Bld) 73.5 % Normal 45-75 [facility] Comment on above: Performed By: #### L 200.77239 #### [facility] [address] [place] [address] 99690 Nucleated RBC/100 WBC (Bld) [Ratio] 0.0 % Normal Less than 1 [facility] Comment on above: Performed By: #### L 200.28533 #### [facility] [address] [place], [place] [address] Platelet mean volume (Bld) [Entitic vol] 10.8 fL Normal 9.4-12.4 [facility] Comment on above: Performed By: #### L 200.35006 #### [facility] [address] [place] [address] PLT 303 K/CU MM Normal 150-450 [facility] Comment on above: Performed By: #### L 200.27321 #### [facility] [address] [place] [address] RBC 4.45 M/CU MM Low 4.50-6.00 [facility] Comment on above: Performed By: #### L 200.39895 #### [facility] [address] [place], [place] [address] WBC 8.3 K/CUMM Normal 4.5-11.0 [facility] Comment on above: Performed By: #### L 200.45913 #### [facility] [address] [place] [address] GFR ESTon 03-06-2021 IF AMER Greater than 60 Normal [facility] Comment on above: Performed By: #### L 500.79572, L500.23534, L500.56487, L500.88851 #### [facility] [address] [place] [address] IF non-AFR AMER Greater than 60 Normal [facility] Comment on above: Performed By: #### L 500.38523, L500.70437, L500.77907, L500.85411 #### [facility] [address] [place] [address] LIPASEon 03-06-2021 Lipase [Catalytic activity/Vol] 29 U/L Normal 12-60 [facility] Comment on above: Result Comment: NOTE NEW NORMAL RANGE DUE TO REAGENT CHANGE Performed By: #### L 500.71392, L500.78405, L500.42365, L500.69911 ####[facility] [id number] [place] [id number]# [phone] LIVERon 03-06-2021 Albumin [Mass/Vol] 3.9 g/dL Normal 3.2-5.0 [facility] Comment on above: Performed By: #### L 500.82644, L500.44050, L500.16133, L500.15006 #### [facility] [place] [address] Albumin/Globulin [Mass ratio] 1.4 {ratio} Normal 0.8-2.0 [facility] Comment on above: Performed By: #### L 500.10877, L500.27313, L500.87225, L500.62314 #### [facility] [address] [place] [address] ALK PHOS 87 U/L Normal 45-117 [facility] Comment on above: Performed By: #### L 500.84625, L500.60036, L500.42953, L500.51330 #### [facility] [address] [place] [address] 48014 ALT [Catalytic activity/Vol] 87 U/L High 13-61 [facility] Comment on above: Result Comment: RESU LTS MAY BE FALSELY DEPRESSED AFTER THE ADMINISTRATION OF SULFASALAZINE AND/OR SULFAPYRIDINE. Performed By: #### L 500.43638, L500.32400, L500.34687, L500.41817 #### [facility] [address] [place] [address] AST [Catalytic activity/Vol] 30 U/L Normal 8-34 [facility] Comment on above: Result Comment: RESU LTS MAY BE FALSELY DEPRESSED AFTER THE ADMINISTRATION OF SULFASALAZINE AND/OR SULFAPYRIDINE. Performed By: #### L 500.21067, L500.01078, L500.75642, L500.49029 #### [facility] [address] [place] [address] BILI DIRECT 0.5 MG/DL High 0.00-0.36 [facility] Comment on above: Result Comment: NOTE NEW NORMAL RANGE DUE TO REAGENT CHANGE Performed By: #### L 500.88038, L500.64454, L500.64480, L500.69898 #### [facility] [address] [place] [address] BILI TOTAL 1.10 MG/DL High 0.2-1.0 [facility] Comment on above: Performed By: #### L 500.22338, L500.89313, L500.75542, L500.18910 #### [facility] [address] [place] [address] Globulin (S) [Mass/Vol] 2.8 g/dL Normal 2.2-4.2 [facility] Comment on above: Performed By: #### L 500.20384, L500.29389, L500.52791, L500.39280 #### [facility] [address] [place], [place] [address] Protein [Mass/Vol] 6.7 g/dL Normal 6.0-8.5 [facility] Comment on above: Performed By: #### L 500.34859, L500.77952, L500.44540, L500.72608 #### [facility] [address] [place] [address] OR.OPRPTon 03-04-2021 Operative Report Normal [facility] OR.OPRPT [facility] Patient Name: RIAZ DIOP [address] [facility] [address] Date of : [address] [place] [address] Unit Number: [id number] Operative Report Patient Status: REG [facility] Attending Doctor: Zay Prado MD Service Date: 03/03/212206 Operative Report Procedure Date: 03/03/21 Attending Physician: Zay Prado MD Procedure: PREOPERATIVE DIAGNOSIS: Cholelithiasis, history of acute cholecystitis. POSTOPERATIVE DIAGNOSIS: Cholelithiasis, history of acute cholecystitis. OPERATION: Laparoscopic cholecystectomy with intraoperative cholangiography using fluoroscopy. SURGEON: Zay Prado MD, [facility] ANESTHESIA: General endotracheal. INDICATIONS: The patient is a 35-year-old Male with the above history who presents for elective laparoscopic cholecystectomy on that basis. TECHNIQUE: The patient was brought to the operating room suite and was placed on the operating room table in supine position. After the adequate induction of general endotracheal anesthesia the patient was prepped and draped in usual sterile fashion. An open cutdown approach to the first trocar placement was employed using a curvilinear infraumbilical skin incision. A 12 mm Vini cannula was placed and held in position using fascial stay sutures. There was a small umbilical hernia with incarcerated adipose tissue which was included in the fascial opening. After CO2 insufflation a 10 mm laparoscope was inserted and was used to visualize the abdomen. Two additional trocars were placed including a 5 mm epigastric port and one right-sided 5 mm port. Each port was placed under direct laparoscopic vision. The gallbladder was extemely intrahepatic which was also shown on his prior imaging studies. It was also covered with a thick layer of adipose tissue. The liver showed signs of fatty infiltration but no cirrhotic changes. The gallbladder fundus was grasped and elevated anteriorly. The infundibulum, cystic duct, and cystic artery were dissected free using gentle blunt dissection. Because of its overlying position the artery was divided first between triple clips. The cystic duct was dissected free and after a good safe view was obtained was clipped on the gallbladder side. Ductotomy was performed with microscissors. A Ranfac catheter was inserted through a 14 gauge Angiocath in the right upper quadrant and was advanced into the cystic duct where it was held in place with a clip. Real time C-arm fluoroscopy and Conray 60 contrast media were used to perform intraoperative cholangiogram which showed prompt flow to the duodenum with no evidence of filling defects realtively normal anatomy. Initially there was no flow into the upper duct system though it was well seen after the patient was given IV morphine per Anesthesia. The Ranfac catheter was withdrawn and the cystic duct was clipped x4 and divided. The gallbladder was dissected out of the gallbladder fossa of the liver using Bovie electrocautery on a spatula tip. Prior to complete excision the gallbladder fossa was again carefully visually inspected and was copiously irrigated. There was no evidence of blood or bile leak. The remaining attachments were divided. The gallbladder was delivered intact from the umbilical incision and was sent to pathology for examination. Pneumoperitoneum was again achieved. The gallbladder fossa was again carefully visually inspected and was copiously irrigated as was the subhepatic space and the right gutter. The effluent returned clear with no evidence of blood or bile leak. The trocars were individually withdrawn under direct laparoscopic vision and perfect hemostasis was noted from the internal aspect. CO2 was evacuated as the final trocar was withdrawn. The fascia was reapproximated at the umbilicus using multiple interrupted simple sutures of 0 PDS which included the prior umbilical hernia defect. The subcutaneous space of each incision was copiously irrigated then closed with 3-0 and 4-0 Monocryl and the skin incisions with running subcuticular 4-0 Monocryl. Plain Marcaine, 0.25%, was injected for postoperative analgesia. Mastisol, Steri-Strips, and dry sterile dressings were placed. The patient tolerated the procedure well with insignificant blood loss and was transferred postoperatively to the recovery area in stable condition. All sponge, instrument, and needle counts were correct x2 at the conclusion of the case. Disclaimer This dictation was created using voice recognition software. Phonetic and/or minor grammatical errors may exist. eSign Date and Time Zay Prado MD Verified/Reviewed by 03/03/21 2217 [facility] David Iverson 03-03-2021 DATE OF ADMISSION: 03/03/2021 DATE OF DISCHARGE: 03/03/2021 ADMISSION DIAGNOSIS: Cholelithiasis with history of cholecystitis. DISCHARGE/FINAL DIAGNOSIS: Cholelithiasis with history of cholecystitis. PROCEDURE: Laparoscopic cholecystectomy with intraoperative cholangiography using fluoroscopy. CLINICAL COURSE: The patient was admitted through same day surgery and was prepared for and taken to the operating room where he underwent the above named procedure without difficulty. Postoperatively he did well and was discharged to home with the following instructions. He was told to resume diet and activity as tolerated with the limitations as listed. He will leave the dressings dry and intact for 24 hours after which time he may remove the outer dressing leaving the Steri-Strips intact. Thereafter he may begin showering yet not bathing and will watch for symptoms and signs of infection which were delineated on a preprinted home going instruction sheet given to the patient. He will call the office to schedule a follow up appointment to be seen in 2 weeks. He will wear the abdominal binder as needed for pain. He was [facility] PATIENT NAME: RIZA DIOP [address] [facility] [address] [place] MEDICAL REC #: [id number] [place] [address] ADMIT DATE: DISCHARGE DATE: DISCHARGE SUMMARY ATTENDING PHY: Zay Prado MD given a prescription for [place] and also for sublingual Zofran. Zay Prado MD [id number] SSI File#: [id number] END OF DOCUMENT / CHANGE LOG FOLLOWS Last Edited By Elec. Signed By Zya Prado MD #ORLANDORU Zay Prado MD #RAMRU on 03/16/2021 00:38 ET on 03/16/2021 00:38 ET Revision Number - 2 Verified/Reviewed by 03/16/[address] [facility] PATIENT NAME: RIAZ DIOP [address] [facility] [address] [place] MEDICAL REC #: [id number] [place] [address] ADMIT DATE: DISCHARGE DATE: DISCHARGE SUMMARY ATTENDING PHY: Zay Prado MD [facility] FLUOROSCOPY IN OR/PAIN MGTon 03-03-2021 FLUOROSCOPY IN OR/PAIN MGT FLUOROSCOPY IN OR/PAIN MGT Ordering Physician: Zay Prado MD 03/03/2021 4:20 PM FLUOROSCOPY AND RADIOGRAPH UTILIZED IN THE OR Clinical Statement: Cholelithiasis with history of cholecystitis FINDINGS: 41.6 second fluoroscopy time utilized. Total five radiographs were obtained demonstrating injection of contrast into the cystic duct with opacification of the common bile duct and passage of contrast into the small bowel. No persistent strictures or filling defects. Proximal intrahepatic ducts are grossly unremarkable. IMPRESSION: Documentation of fluoroscopy and radiographs utilized in the OR for intraoperative cholangiogram. ---- Electronic Signature on File ---- Signed By: Andrae Polo MD [email or web address] Dictated: 03/04/2021 7:28 AM Signed: 03/04/2021 7:30 AM Reported By: ANDRAE POLO M.D. Signed By: ANDRAE POLO M.D. [facility] HPon 03-03-2021 CHIEF COMPLAINT: Gal lstones with attacks and common duct stone. HISTORY OF PRESENT ILLNESS: The patient is a 35-year-old male who has been having a variety of upper GI symptoms over the past year or so. He recently developed abrupt onset of abdominal pain and chest pain which woke him up in the night and prompted an emergency room evaluation. He ruled out for any acute cardiac event, but no further evaluation was initially done. His symptoms recurred quickly and prompted an additional evaluation at a different outpatient center. He was found to have elevated liver function studies and had CT scan evaluation showing cholelithiasis and choledocholithiasis. He then underwent an outpatient ERCP and stone extraction with no stenting and now presents again as an outpatient for his first surgical evaluation. He has considered his options for care and presents requesting laparoscopic cholecystectomy. PAST MEDICAL HISTORY: Significant for pediatric repair of bilateral inguinal hernias, wisdom tooth extraction, and LASIK surgery. MEDICATIONS: Currently include loratadine [address] [facility] PATIENT NAME: RIAZ DIOP [address] [place] MEDICAL REC #: [id number] [place] [address] ADMIT DATE: DISCHARGE DATE: HISTORY and PHYSICAL ATTENDING PHY: Zay Prado MD ALLERGIES: No known drug allergies. He avoids SHELLFISH due to severe nausea and vomiting, though he is okay with intravenous iodine-based contrast. SOCIAL HISTORY: The patient has no significant history of ethanol or tobacco use. 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 FAMILY HISTORY: Positive for coronary artery disease and cancer, including some type of skin cancer in his mother, the details of which are uncertain. There is no family history of hypertension, diabetes, coagulopathy, or adverse anesthesia reactions. REVIEW OF SYSTEMS: General: The patient denies any recent illnesses. HEENT: Head: Patient denies headaches. Eyes: The patient does not wear glasses and denies any acute visual changes. Ears: Patient denies hearing loss or tinnitus. Nose: Patient denies rhinorrhea. Throat: Patient denies sore throat. Neurologic: Patient denies dizziness or history of syncope, seizures, or amaurosis fugax. Respiratory: Patient denies shortness of breath at rest or with light exertion. He has no orthopnea, cough, or history of hemoptysis. He does snore somewhat, but [facility] PATIENT NAME: RIAZ DIOP [address] [place] MEDICAL REC #: [id number] [place] [address] ADMIT DATE: DISCHARGE DATE: HISTORY and PHYSICAL ATTENDING PHY: Zay Prado MD denies sleep apnea or paroxysmal nocturnal dyspnea. Cardiac: Patient denies chest pain, pressure, squeezing, heaviness, tightness, or palpitations. Gastrointestinal: Patient denies nausea, vomiting, diarrhea, constipation, hematochezia, melena, or heartburn. Genitourinary: The patient denies dysuria, hematuria, or nocturia. Musculoskeletal: Patient denies muscle, bone, or joint type pain. PHYSICAL EXAMINATION: Vital Signs: Temperature is 97.1, heart rate is 72, respirations 12, blood pressure is 132/92. He is 6 feet 4 inches tall and weighs 311 pounds, with a BMI of 38. In General: He is a well-developed, moderately obese 35-year-old male in no acute distress. HEENT: Head is normocephalic, atraumatic. Eyes: Pupils are equal, round, reactive to light. Extraocular motions are intact. Sclerae are anicteric. Nose and throat are clear. Neck: Supple, nontender, with no JVD, carotid bruits, adenopathy, thyromegaly or thyroid nodularity. Back: Shows no costovertebral angle tenderness. Chest: Symmetric. Respirations are clear to auscultation [facility] PATIENT NAME: RIAZ DIOP [address] [place] MEDICAL REC #: [id number] [place] [id number] ADMIT DATE: DISCHARGE DATE: HISTORY and PHYSICAL ATTENDING PHY: Zay Prado MD throughout. Heart sounds S1 and S2. Regular rate and rhythm without rub, gallops or murmurs. Abdomen: Obese, soft and nontender, with no palpable masses, abdominal wall defects, hepatosplenomegaly or fluid wave. Extremities: Show no edema. Pulses are palpable. Range of motion is intact. Neurologic: The patient is alert and oriented x3. Cranial nerves II through XII are grossly intact. There are no obvious focal motor or sensory deficits. Integument: Warm, moist, and without focal lesions. Lymphatic: There is no evidence of cervical, supraclavicular, or inguinal adenopathy. IMPRESSION: Cholelithiasis with history of cholecystitis and choledocholith (more content not included)... Normal [facility] [place] SURG 03-03-2021 SURG ------- Patient: RIAZ DIOP SPECIMEN: [id number] Collection Date: 03/03/21 Received: 03/04/21 Status: BRANDON Malcolm Dr.: Zay Prado MD Ph# Othr. : Drew Mayen MD Material for Examination: A GALLBLADDER PRE-OP DIAGNOSIS: CHOLELITHIASIS WITH HISTORY OF CHOLECYSTITIS AND CHOLEDOCHOLITHIASIS POST-OP DIAGNOSIS: SAME SURGICAL PROCEDURE: LAPAROSCOPIC CHOLECYSTECTOMY WITH INTRAOPERATIVE CHOLANGIOGRAMS USING FLUOROSCOPY DIAGNOSIS A. Gallbladder, laparoscopic cholecystectomy: Chronic cholecystitis Pericystic duct lymph node with reactive changes and a few lipogranulomas. GROSS DESCRIPTION The specimen is received in formalin and labeled with the patient's name, ID and designated gallbladder, is a levine-pink gallbladder, 7.3 x 2.5 x 2.0 cm. The cystic duct is patent. A possible cystic node is identified, 1.4 cm in greatest dimension. The lumen contains a thick green fluid and no stones are identified within the lumen or within the container. The mucosa is levine and velvety and the gallbladder wall is 0.1 to 0.2 cm thick. Material Combiner sections are submitted in cassette A1 including the cystic duct and cystic node. MICROSCOPIC DESCRIPTION One Cyndie stained slide examined. COPIES TO: Drew Mayen MD, Russell L MD Signed Verified/Reviewed by MELANIE ANTUNEZ MD 03/05/21 This dictation was created using voice recognition software. Phonetic and/or minor grammatical errors may exist. [facility] NAME: DIOPRIAZ [facility] UNIT#: [id number] LOC: [facility] Political Reporter: Rossana Caballero M.D. ROOM/BED: [facility] : 85 AGE/SEX: 35/M ORD.Zay Parekh MD END OF REPORT Normal [facility] ERC BILIARYon 02-19-2021 ERC BILIARY REMOVAL STONE BILIAR Y DCT PERC, ERC BILIARY Ordering Physician: Jacinto Macias MD 02/19/2021 8:44 AM INTRAOPERATIVE FLUOROSCOPY FOR ENDOSCOPIC RETROGRADE CHOLANGIOGRAM: Clinical Statement: Acute cholecystitis Comparison: None FINDINGS: 43.4 seconds of intraoperative fluoroscopy were provided to Dr. Jacinto Macias five fluoroscopic spot films were obtained. The major papilla was cannulated utilizing a side-viewing endoscope by gastroenterology service. Conray 60 was then injected with the cholangiogram. Pertinent clinical service a sphincterotomy was performed, and bile duct was swept with an inflated. Sludge and stones were removed. IMPRESSION: Documentation of intraoperative fluoroscopy for endoscopic retrograde cholangiogram ---- Electronic Signature on File ---- Signed By: Riaz Adkins MD [email or web address] Dictated: 02/19/2021 12:52 PM Signed: 02/19/2021 12:56 PM Reported By: RIAZ ADKINS M.D. Signed By: RIAZ ADKINS M.D. [facility] GEon 02-19-2021 GASTROENTEROLOGY REPORT [facility] REMOVAL STONE BILIARY DCT PE RCon 02-19-2021 REMOVAL STONE BILIARY DCT PERC REMOVAL STONE BILIARY DCT PERC, ERC BILIARY Ordering Physician: Jacinto Macias MD 02/19/2021 8:44 AM INTRAOPERATIVE FLUOROSCOPY FOR ENDOSCOPIC RETROGRADE CHOLANGIOGRAM: Clinical Statement: Acute cholecystitis Comparison: None FINDINGS: 43.4 seconds of intraoperative fluoroscopy were provided to Dr. Jacinto Macias five fluoroscopic spot films were obtained. The major papilla was cannulated utilizing a side-viewing endoscope by gastroenterology service. Conray 60 was then injected with the cholangiogram. Pertinent clinical service a sphincterotomy was performed, and bile duct was swept with an inflated. Sludge and stones were removed. IMPRESSION: Documentation of intraoperative fluoroscopy for endoscopic retrograde cholangiogram ---- Electronic Signature on File ---- Signed By: Riaz Adkins MD [email or web address] Dictated: 02/19/2021 12:52 PM Signed: 02/19/2021 12:56 PM Reported By: RIAZ ADKINS M.D. Signed By: RIAZ ADKINS [facility].D. [facility] CT ABD/PELVIS W/ IV CONTRAST ONLY ORIGINAL CT ABD/PELVIS W/ IV CONTRAST ONLY CLINICAL STATEMENT: Upper abdominal pain for a few days. COMPARISON: None TECHNIQUE: Axial images were obtained from the lung bases through the pubic symphysis after the administration of IV contrast. Coronal and sagittal reformatted images were generated from the axial dataset. This exam was performed according to our departmental dose optimization program, and includes the following measures where applicable: automated exposure control, adjustment of the mAs and/or kVp according to patient size and/or exam, and an iterative reconstruction algorithm. FINDINGS: Lung bases are clear. Decreased attenuation throughout the liver, compatible with fatty infiltration. The spleen is at the upper limits of normal in size at 13 cm. The pancreas, and adrenal glands are normal. Gallbladder is normal in size with small amount of wall thickening and questionable pericholecystic haziness. Small calcified gallstones are present at the neck of the gallbladder, within the cystic duct, and the distal common bile duct at the sphincter of Oddi. LEFT kidney is absent. RIGHT kidney is normal demonstrates normal enhancement with no hydronephrosis or calculi. Small and large bowel are normal in caliber. Appendix is normal. No free intraperitoneal fluid or air. Bladder is well distended with no focal wall thickening. Prostate is normal in size. There is absence of the LEFT seminal vesicle. Aorta is normal in caliber. No pathologically enlarged abdominal or pelvic lymph nodes. No aggressive osseous lesion. IMPRESSION: 1. Cholelithiasis and choledocholithiasis, as above. If there is clinical concern for acute cholecystitis, a HIDA scan is recommended. MRCP/ERCP as well as correlation with alkaline phosphatase levels is also recommended. 2. Absent LEFT kidney. Correlate with surgical history or known congenital absence. I have personally reviewed the images of this examination and agree with the resident's findings and interpretation. Interpreted By: Eunice Brennan MD Preliminary Report By: Alex Delacruz DO Electronically Signed By: Eunice Brennan MD Dictated Date: 02/15/2021 5:57:42 PM Prelim Date: 02/15/2021 6:03:09 PM Sign Date: 02/16/2021 4:48:05 AM Ordering Provider:Rafael Tucker [facility] ([place]) .Auto Diffon 02-15-2021 Ammonia (P) [Mass/Vol] 0.50 10 3/mcL Normal 0.15-1.00 [facility] ([place]) Comment on above: Performed By: #### C BC, ADIFF, ANEU, TROPHS, CMP, LIP #### [address] [address] #### GFR #### [address] [address] Basophils (Bld) [#/Vol] 0.00 10 3/mcL Normal 0.00-0.19 [facility] ([place]) Comment on above: Performed By: #### C BC, ADIFF, ANEU, TROPHS, CMP, LIP #### [place] [address] #### GFR #### [address] [address] Basophils/100 WBC (Bld) 0.7 % Normal 0.0-2.5 [facility] ([place]) Comment on above: Performed By: #### C BC, ADIFF, ANEU, TROPHS, CMP, LIP #### [place] [address] #### GFR #### [address] [address] Eosinophils (Bld) [#/Vol] 0.10 10 3/mcL Normal 0.00-0.40 [facility] ([place]) Comment on above: Performed By: #### C BC, ADIFF, ANEU, TROPHS, CMP, LIP #### [place] [address] #### GFR #### [address] [address] Eosinophils/100 WBC (Bld) 0.8 % Normal 0.0-7.0 [facility] ([place]) Comment on above: Performed By: #### C BC, ADIFF, ANEU, TROPHS, CMP, LIP #### [place] [address] #### GFR #### [address] [address] Lymphocytes (Bld) [#/Vol] 1.50 10 3/mcL Normal 0.77-3.85 [facility] ([place]) Comment on above: Performed By: #### C BC, ADIFF, ANEU, TROPHS, CMP, LIP #### [address] [address] #### GFR #### [address] [address] Lymphocytes/100 WBC (Bld) 22.6 % Normal 10.0-50.0 [facility] ([place]) Comment on above: Performed By: #### C BC, ADIFF, ANEU, TROPHS, CMP, LIP #### [address] [address] #### GFR #### [address] [address] Monocytes/100 WBC (Bld) 7.4 % Normal 1.7-13.0 [facility] ([place]) Comment on above: Performed By: #### C BC, ADIFF, ANEU, TROPHS, CMP, LIP #### [address] [address] #### GFR #### [address] [address] Neutrophils/100 WBC (Bld) 68.5 % Normal 37.0-80.0 [facility] ([place]) Comment on above: Performed By: #### C BC, ADIFF, ANEU, TROPHS, CMP, LIP #### [address] [address] #### GFR #### [address] [address] .GFRon 02-15-2021 GFR 89 ml/min/1.73sqm Normal [facility] ([place]) Comment on above: Result Comment: GFR Population mean for , Non- Americans Ages 20-29 = 116 mL/min/1.73 sq.m. Ages 30-39 = 107 mL/min/1.73 sq.m. Ages 40-49 = 99 mL/min/1.73 sq.m. Ages 50-59 = 93 mL/min/1.73 sq.m. Ages 60-69 = 85 mL/min/1.73 sq.m. Ages 70+ = 75 mL/min/1.73 sq.m. Chronic Kidney Disease: Less than 60 mL/min/1.73 square meters End Stage Renal Disease: Less than 15 mL/min/1.73 square meters Performed By: #### C BC, ADIFF, ANEU, TROPHS, CMP, LIP #### [address] [address] #### GFR #### [address] [address] GFR Non- 73 ml/min/1.73sqm Normal [facility] ([place]) Comment on above: Result Comment: GFR Population mean for , Non- Americans Ages 20-29 = 116 mL/min/1.73 sq.m. Ages 30-39 = 107 mL/min/1.73 sq.m. Ages 40-49 = 99 mL/min/1.73 sq.m. Ages 50-59 = 93 mL/min/1.73 sq.m. Ages 60-69 = 85 mL/min/1.73 sq.m. Ages 70+ = 75 mL/min/1.73 sq.m. Chronic Kidney Disease: Less than 60 mL/min/1.73 square meters End Stage Renal Disease: Less than 15 mL/min/1.73 square meters Performed By: #### C BC, ADIFF, ANEU, TROPHS, CMP, LIP #### [address] [address] #### GFR #### [address] [address] .NEUABSon 02-15-2021 Neutrophils (Bld) [#/Vol] 4.50 10 3/mcL Normal 2.85-6.16 [facility] ([place]) Comment on above: Performed By: #### C BC, ADIFF, ANEU, TROPHS, CMP, LIP #### [address] [address] #### GFR #### [address] [address] CBCon 02-15-2021 Erythrocyte distribution width (RBC) [Ratio] 13.1 % Normal 11.5-14.5 [facility] ([place]) Comment on above: Performed By: #### C BC, ADIFF, ANEU, TROPHS, CMP, LIP #### [place] [address] #### GFR #### [place] [address] Hematocrit (Bld) [Volume fraction] 42.9 % Normal 42.0-52.0 [facility] ([place]) Comment on above: Performed By: #### C BC, ADIFF, ANEU, TROPHS, CMP, LIP #### [place] [address] #### GFR #### [place] [address] Hemoglobin (Bld) [Mass/Vol] 15.1 G/dL Normal 14.0-18.0 [facility] ([place]) Comment on above: Performed By: #### C BC, ADIFF, ANEU, TROPHS, CMP, LIP #### [place] [address] #### GFR #### [place] [address] MCH (RBC) [Entitic mass] 32.0 pg High 27.0-31.2 [facility] ([place]) Comment on above: Performed By: #### C BC, ADIFF, ANEU, TROPHS, CMP, LIP #### [place] [address] #### GFR #### [place] [address] MCHC (RBC) [Mass/Vol] 35.3 G/dL Normal 31.8-35.4 [facility] ([place]) Comment on above: Performed By: #### C BC, ADIFF, ANEU, TROPHS, CMP, LIP #### [place] [address] #### GFR #### [address] [address] MCV (RBC) [Entitic vol] 90.8 fL Normal 80.0-94.0 [facility] ([place]) Comment on above: Performed By: #### C BC, ADIFF, ANEU, TROPHS, CMP, LIP #### [place] [address] #### GFR #### [address] [address] Platelet mean volume (Bld) [Entitic vol] 8.5 fL Normal 7.4-10.4 [facility] ([place]) Comment on above: Performed By: #### C BC, ADIFF, ANEU, TROPHS, CMP, LIP #### [place] [address] #### GFR #### [address] [address] Platelets (Bld) [#/Vol] 329 10 3/mcL Normal 130-400 [facility] ([place]) Comment on above: Performed By: #### C BC, ADIFF, ANEU, TROPHS, CMP, LIP #### [place] [address] #### GFR #### [address] [address] RBC (Bld) [#/Vol] 4.72 10 6/mcL Normal 4.04-6.13 [facility] ([place]) Comment on above: Performed By: #### C BC, ADIFF, ANEU, TROPHS, CMP, LIP #### [place] [address] #### GFR #### [address] [address] WBC (Bld) [#/Vol] 6.50 10 3/mcL Normal 4.60-10.80 [facility] ([place]) Comment on above: Performed By: #### C BC, ADIFF, ANEU, TROPHS, CMP, LIP #### [place] [address] #### GFR #### [address] [address] CMPon 02-15-2021 Albumin [Mass/Vol] 4.2 G/dL Normal 3.5-5.0 [facility] ([place]) Comment on above: Performed By: #### C BC, ADIFF, ANEU, TROPHS, CMP, LIP #### [place] [address] #### GFR #### [place] [address] Albumin/Globulin [Mass ratio] 1.3 {ratio} Normal 1.1-2.5 [facility] ([place]) Comment on above: Performed By: #### C BC, ADIFF, ANEU, TROPHS, CMP, LIP #### [place] [address] #### GFR #### [place] [address] ALP [Catalytic activity/Vol] 121 U/L Normal 40-135 [facility] ([place]) Comment on above: Performed By: #### C BC, ADIFF, ANEU, TROPHS, CMP, LIP #### [place] [address] #### GFR #### [place] [address] ALT [Catalytic activity/Vol] 560 U/L High 16-63 [facility] ([place]) Comment on above: Performed By: #### C BC, ADIFF, ANEU, TROPHS, CMP, LIP #### [address] [address] #### GFR #### [place] [id number] AST [Catalytic activity/Vol] 316 U/L High 10-40 [facility] ([place]) Comment on above: Performed By: #### C BC, ADIFF, ANEU, TROPHS, CMP, LIP #### [place] [address] #### GFR #### [address] [address] Bili Total 4.4 mg/dL High 0.2-1.0 [facility] ([place]) Comment on above: Result Comment: Use of this assay is not recommended for patients undergoing treatment with eltrombopag due to the potential for falsely elevated results. Performed By: #### C BC, ADIFF, ANEU, TROPHS, CMP, LIP #### [place] [address] #### GFR #### [address] [address] Calcium [Mass/Vol] 9.4 mg/dL Normal 8.4-10.2 [facility] ([place]) Comment on above: Performed By: #### C BC, ADIFF, ANEU, TROPHS, CMP, LIP #### [place] [address] #### GFR #### [place] [address] Chloride [Moles/Vol] 103 mmol/L Normal 98-107 [facility] ([place]) Comment on above: Performed By: #### C BC, ADIFF, ANEU, TROPHS, CMP, LIP #### [place] [address] #### GFR #### [place] [address] CO2 [Moles/Vol] 27 mmol/L Normal 22-29 [facility] ([place]) Comment on above: Performed By: #### C BC, ADIFF, ANEU, TROPHS, CMP, LIP #### [place] [address] #### GFR #### [address] [address] Creatinine [Mass/Vol] 1.14 mg/dL Normal 0.70-1.30 [facility] ([place]) Comment on above: Performed By: #### C BC, ADIFF, ANEU, TROPHS, CMP, LIP #### [place] [address] #### GFR #### [address] [address] Electrolyte Balance 12.0 mEq/L Normal [facility] ([place]) Comment on above: Performed By: #### C BC, ADIFF, ANEU, TROPHS, CMP, LIP #### [address] [address] #### GFR #### [address] [address] Globulin (S) [Mass/Vol] 3.2 G/dL Normal [facility] ([place]) Comment on above: Performed By: #### C BC, ADIFF, ANEU, TROPHS, CMP, LIP #### [address] [address] #### GFR #### [address] [address] Glucose [Mass/Vol] 98 mg/dL Normal 70-105 [facility] ([place]) Comment on above: Performed By: #### C BC, ADIFF, ANEU, TROPHS, CMP, LIP #### [address] [address] #### GFR #### [address] [address] Potassium [Moles/Vol] 4.1 mmol/L Normal 3.5-5.1 [facility] ([place]) Comment on above: Performed By: #### C BC, ADIFF, ANEU, TROPHS, CMP, LIP #### [address] [address] #### GFR #### [address] [address] Protein [Mass/Vol] 7.4 G/dL Normal 6.4-8.2 [facility] ([place]) Comment on above: Performed By: #### C BC, ADIFF, ANEU, TROPHS, CMP, LIP #### [address] [address] #### GFR #### [address] [address] Sodium [Moles/Vol] 142 mmol/L Normal 136-145 [facility] ([place]) Comment on above: Performed By: #### C BC, ADIFF, ANEU, TROPHS, CMP, LIP #### [address] [address] #### GFR #### [address] [address] Urea nitrogen [Mass/Vol] 11 mg/dL Normal 7-18 [facility] ([place]) Comment on above: Performed By: #### C BC, ADIFF, ANEU, TROPHS, CMP, LIP #### [address] [address] #### GFR #### [place] [address] Urea nitrogen/Creatinine [Mass ratio] 10 ratio Normal 7-27 [facility] ([place]) Comment on above: Performed By: #### C BC, ADIFF, ANEU, TROPHS, CMP, LIP #### [place] [address] #### GFR #### [place] [address] LIPon 02-15-2021 Lipase Level 112 U/L Normal 73-393 [facility] ([place]) Comment on above: Performed By: #### C BC, ADIFF, ANEU, TROPHS, CMP, LIP #### [place] [address] #### GFR #### [place] [address] TROPHSon 02-15-2021 Troponin I High Sensitivity 4.8 ng/L Normal 0.0-76.2 [facility] ([place]) Comment on above: Performed By: #### C BC, ADIFF, ANEU, TROPHS, CMP, LIP #### [place] [address] #### GFR #### [place] [address] XR CHEST 2 VIEWSon XR CHEST 2 VIEWS ORIGINAL XR CHEST 2 VIEWS CLINICAL STATEMENT: Intermittent chest and upper abdominal pain. COMPARISON: None FINDINGS: Cardia mediastinal silhouette is within normal limits. No focal consolidation, pleural effusion, or pneumothorax. No vascular congestion. No acute osseous abnormality. IMPRESSION: No acute radiographic findings. I have personally reviewed the images of this examination and agree with the resident's findings and interpretation. Interpreted By: Eunice Brennan MD Preliminary Report By: Alex Delacruz DO Electronically Signed By: Eunice Brennan MD Dictated Date: 02/15/2021 4:33:36 PM Prelim Date: 02/15/2021 4:35:18 PM Sign Date: 02/15/2021 6:02:27 PM Ordering Provider:Rafael Tucker [facility] ([place]) Stool gastrointestinal hemog lobin detection by immunologic method Lower GI hemoglobin IA Ql (Stl) [facility] Work Phone: Vital Signs Date Time Vital Sign Value Performing Clinician Facility 07-11-2025 08:140400 Body height 193.[address] Drew Mayen MD Work Phone: [facility] 07-11-2025 08:14-0400 Body mass index (BMI) [Ratio] 39.3 kg/m2 Dr. Drew Mayen MD Work Phone: [facility] 07-11-2025 08:14-0400 Body temperature 97.8 [degF] Dr. Drew Mayen MD Work Phone: [facility] 07-11-2025 08:14-0400 Body weight 146.[address] Drew Mayen MD Work Phone: [facility] 07-11-2025 08:14-0400 Diastolic blood pressure 72 mm[Hg] Dr. Drew Mayen MD Work Phone: [facility] 07-11-2025 08:14-0400 Heart rate 78 /min Dr. Drew Mayen MD Work Phone: [facility] 07-11-2025 08:14-0400 Respiratory rate 16 /min Dr. Drew Mayen MD Work Phone: [facility] 07-11-2025 08:14-0400 SaO2% (BldA) [Mass fraction] 97 % Dr. Drew Mayen MD Work Phone: [facility] 07-11-2025 08:14-0400 Systolic blood pressure 128 mm[Hg] Dr. Drew Mayen MD Work Phone: [facility] 05-09-2025 14:31-0400 Body height 193.[address] Drew Mayen MD Work Phone: [facility] 05-09-2025 14:31-0400 Body mass index (BMI) [Ratio] 39.8 kg/m2 Dr. Drew Mayen MD Work Phone: [facility] 05-09-2025 14:31-0400 Body temperature 97.8 [degF] Dr. Drew Mayen MD Work Phone: [facility] 05-09-2025 14:31-0400 Body weight 148.[address] Drew Mayen MD Work Phone: [facility] 05-09-2025 14:31-0400 Diastolic blood pressure 80 mm[Hg] Dr. Drew Mayen MD Work Phone: [facility] 05-09-2025 14:31-0400 Heart rate 96 /min Dr. Drew Mayen MD Work Phone: [facility] 05-09-2025 14:31-0400 Respiratory rate 18 /min Dr. Drew Mayen MD Work Phone: [facility] 05-09-2025 14:31-0400 SaO2% (BldA) [Mass fraction] 98 % Dr. Drew Mayen MD Work Phone: [facility] 05-09-2025 14:31-0400 Systolic blood pressure 142 mm[Hg] Dr. Drew Mayen MD Work Phone: [facility] 02-07-2025 13:41-0400 Body mass index (BMI) [Ratio] 39.2 kg/m2 Dr. Drew Mayen MD Work Phone: [facility] 02-07-2025 13:41-0400 Body temperature 98.6 [degF] Dr. Drew Mayen MD Work Phone: [facility] [facility] 02-07-2025 13:41-0400 Body weight 146.[address] Drew Mayen MD Work Phone: [facility] 02-07-2025 13:41-0400 Diastolic blood pressure 96 mm[Hg] Dr. Drew Mayen MD Work Phone: [facility] 02-07-2025 13:41-0400 Heart rate 96 /min Dr. Drew Mayen MD Work Phone: [facility] 02-07-2025 13:41-0400 Respiratory rate 14 /min Dr. Drew Mayen MD Work Phone: [facility] 02-07-2025 13:41-0400 SaO2% (BldA) [Mass fraction] 99 % Dr. Drew Mayen MD Work Phone: [facility] 02-07-2025 13:41-0400 Systolic blood pressure 144 mm[Hg] Dr. Drew Mayen MD Work Phone: [facility] 01-31-2025 18:37-0500 Body temperature 97.6 [degF] Dr. Drew Mayen MD Work Phone: [facility] 01-31-2025 18:37-0500 Diastolic blood pressure 85 mm[Hg] Dr. Drew Mayen MD Work Phone: [facility] 01-31-2025 18:37-0500 Heart rate 85 /min Dr. Drew Mayen MD Work Phone: [facility] 01-31-2025 18:37-0500 Respiratory rate 16 /min Dr. Drew Mayen MD Work Phone: [facility] 01-31-2025 18:37-0500 SaO2% (BldA) [Mass fraction] 97 % Dr. Drew Mayen MD Work Phone: [facility] 01-31-2025 18:37-0500 Systolic blood pressure 165 mm[Hg] Dr. Drew Mayen MD Work Phone: [facility] 01-31-2025 14:51-0500 Body mass index (BMI) [Ratio] 38.9 kg/m2 Dr. Drew Mayen MD Work Phone: [facility] 01-31-2025 14:51-0500 Body weight 145.[address] Drew Mayen MD Work Phone: [facility] 05-19-2024 09:45-0400 Body temperature 97.11 [degF] Vinnie Hernandez MD Work Phone: [facility] 05-19-2024 09:45-0400 Body weight 147 kg Vinnie Hernandez MD Work Phone: [facility] 05-19-2024 09:45-0400 Diastolic blood pressure 90 mm[Hg] Vinnie Hernandez MD Work Phone: [facility] 05-19-2024 09:45-0400 Heart rate 101 /min Vinnie Hernandez MD Work Phone: [facility] 05-19-2024 09:45-0400 Respiratory rate 18 /min Vinnie Hernandez MD Work Phone: [facility] 05-19-2024 09:45-0400 SaO2% (BldA) [Mass fraction] 98 % Vinnie Hernandez MD Work Phone: [facility] 05-19-2024 09:45-0400 Systolic blood pressure 144 mm[Hg] Vinnie Hernandez MD Work Phone: [facility] 02-16-2024 14:02-0400 Body height 193.[address] Drew Mayen Work Phone: [facility] 02-16-2024 14:02-0400 Body mass index (BMI) [Ratio] 39.2 kg/m2 Dr. Drew Mayen Work Phone: [facility] 02-16-2024 14:02-0400 Body temperature 97.8 [degF] Dr. Drew Mayen Work Phone: [facility] 02-16-2024 14:02-0400 Body weight 146.[address] Drew Mayen Work Phone: [facility] 02-16-2024 14:02-0400 Diastolic blood pressure 88 mm[Hg] Dr. Drew Mayen Work Phone: [facility] 02-16-2024 14:02-0400 Heart rate 94 /min Dr. Drew Mayen Work Phone: [facility] 02-16-2024 14:02-0400 Respiratory rate 17 /min Dr. Drwe Mayen Work Phone: [facility] 02-16-2024 14:02-0400 SaO2% (BldA) [Mass fraction] 98 % Dr. Drew Mayen Work Phone: [facility] 02-16-2024 14:02-0400 Systolic blood pressure 144 mm[Hg] Dr. Drew Mayen Work Phone: [facility] 01-12-2024 09:46-0500 Body height 193.[address] Drew Mayen Work Phone: [facility] 01-12-2024 09:46-0500 Body mass index (BMI) [Ratio] 39.4 kg/m2 Dr. Drew Mayen Work Phone: [facility] 01-12-2024 09:46-0500 Body temperature 97.6 [degF] Dr. Drew Mayen Work Phone: [facility] 01-12-2024 09:46-0500 Body weight 146.[address] Drew Mayen Work Phone: [facility] 01-12-2024 09:46-0500 Diastolic blood pressure 92 mm[Hg] Dr. Drew Mayen Work Phone: [facility] 01-12-2024 09:46-0500 Heart rate 74 /min Dr. Drew Mayen Work Phone: [facility] 01-12-2024 09:46-0500 Respiratory rate 14 /min Dr. Drew Mayen Work Phone: [facility] 01-12-2024 09:46-0500 SaO2% (BldA) [Mass fraction] 96 % Dr. Drew Mayen Work Phone: [facility] 01-12-2024 09:46-0500 Systolic blood pressure 142 mm[Hg] Dr. Drew Mayen Work Phone: [facility] 01-10-2024 12:45-0500 Body temperature 97.4 [degF] Dr. Drew Mayen Work Phone: [facility] 01-10-2024 12:45-0500 Diastolic blood pressure 82 mm[Hg] Dr. Drew Mayen Work Phone: [facility] 01-10-2024 12:45-0500 Heart rate 86 /min Dr. Drew Mayen Work Phone: [facility] 01-10-2024 12:45-0500 Respiratory rate 16 /min Dr. Drew Mayen Work Phone: [facility] 01-10-2024 12:45-0500 SaO2% (BldA) [Mass fraction] 94 % Dr. Drew Mayen Work Phone: [facility] 01-10-2024 12:45-0500 Systolic blood pressure 124 mm[Hg] Dr. Drew Mayen Work Phone: [facility] 01-10-2024 10:30-0500 Inhaled oxygen flow rate 8 L/min Dr. Drew Mayen Work Phone: [facility] 01-10-2024 06:33-0500 Body height 193.[address] Drew Mayen Work Phone: [facility] 01-10-2024 06:33-0500 Body mass index (BMI) [Ratio] 39.2 kg/m2 Dr. Drew Mayen Work Phone: [facility] 01-10-2024 06:33-0500 Body weight [address] Drew Mayen Work Phone: [facility] 12-06-2023 15:01-0500 Body height 193.[address] Drew Mayen Work Phone: [facility] 12-06-2023 15:01-0500 Body mass index (BMI) [Ratio] 38.5 kg/m2 Dr. Drew Mayen Work Phone: [facility] 12-06-2023 15:01-0500 Body temperature 97.4 [degF] Dr. Drew Mayen Work Phone: [facility] 12-06-2023 15:01-0500 Body weight 143.[address] Drew Mayen Work Phone: [facility] 12-06-2023 15:01-0500 Diastolic blood pressure 84 mm[Hg] Dr. Drew Mayen Work Phone: [facility] 12-06-2023 15:01-0500 Heart rate 89 /min Dr. Drew Mayen Work Phone: [facility] 12-06-2023 15:01-0500 Respiratory rate 18 /min Dr. Drew Mayen Work Phone: [facility] 12-06-2023 15:01-0500 SaO2% (BldA) [Mass fraction] 97 % Dr. Drew Mayen Work Phone: [facility] 12-06-2023 15:01-0500 Systolic blood pressure 140 mm[Hg] Dr. Drew Mayen Work Phone: [facility] 11-17-2023 11:08-0500 Body temperature 98.1 [degF] Dr. Drew Mayen Work Phone: [facility] 11-17-2023 11:08-0500 Diastolic blood pressure 78 mm[Hg] Dr. Drew Mayen Work Phone: [facility] 11-17-2023 11:08-0500 Heart rate 86 /min Dr. Drew Mayen Work Phone: [facility] 11-17-2023 11:08-0500 Respiratory rate 16 /min Dr. Drew Mayen Work Phone: [facility] 11-17-2023 11:08-0500 SaO2% (BldA) [Mass fraction] 95 % Dr. Drew Mayen Work Phone: [facility] 11-17-2023 11:08-0500 Systolic blood pressure 143 mm[Hg] Dr. Drew Mayen Work Phone: [facility] 11-17-2023 09:35-0500 Body temperature 98.7 [degF] Dr. Drew Mayen Work Phone: [facility] 11-17-2023 09:35-0500 Diastolic blood pressure 82 mm[Hg] Dr. Drew Mayen Work Phone: [facility] 11-17-2023 09:35-0500 Heart rate 79 /min Dr. Drwe Mayen Work Phone: [facility] 11-17-2023 09:35-0500 Respiratory rate 16 /min Dr. Drew Mayen Work Phone: [facility] 11-17-2023 09:35-0500 SaO2% (BldA) [Mass fraction] 97 % Dr. Drew Mayen Work Phone: [facility] 11-17-2023 09:35-0500 Systolic blood pressure 145 mm[Hg] Dr. Drew Mayen Work Phone: [facility] 11-17-2023 05:58-0500 Inhaled oxygen flow rate 2 L/min Dr. Drew Mayen Work Phone: [facility] 11-16-2023 15:26-0500 Body height 193.[address] Drew Mayen Work Phone: [facility] 11-16-2023 15:26-0500 Body mass index (BMI) [Ratio] 39.2 kg/m2 Dr. Drew Mayen Work Phone: [facility] 11-16-2023 15:26-0500 Body weight 146.[address] Drew Mayen Work Phone: [facility] 11-16-2023 13:20-0500 Diastolic blood pressure 84 mm[Hg] Dr. Drew Myaen Work Phone: [facility] 11-16-2023 13:20-0500 Heart rate 74 /min Dr. Drew Mayen Work Phone: [facility] 11-16-2023 13:20-0500 Respiratory rate 16 /min Dr. Drew Mayen Work Phone: [facility] 11-16-2023 13:20-0500 SaO2% (BldA) [Mass fraction] 98 % Dr. Drew Mayen Work Phone: [facility] 11-16-2023 13:20-0500 Systolic blood pressure 139 mm[Hg] Dr. Drew Mayen Work Phone: [facility] 11-16-2023 09:33-0500 Body height 193.[address] Drew Mayen Work Phone: [facility] 11-16-2023 09:33-0500 Body mass index (BMI) [Ratio] 39.4 kg/m2 Dr. Drew Mayen Work Phone: [facility] 11-16-2023 09:33-0500 Body temperature 97.8 [degF] Dr. Drew Mayen Work Phone: [facility] 11-16-2023 09:33-0500 Body weight 147.[address] Drew Mayen Work Phone: [facility] 10-11-2023 08:44-0500 Body height 193.[address] Drew Mayen Work Phone: [facility] 10-11-2023 08:44-0500 Body mass index (BMI) [Ratio] 38.7 kg/m2 Dr. Drew Mayen Work Phone: [facility] 10-11-2023 08:44-0500 Body temperature 97.4 [degF] Dr. Drew Mayen Work Phone: [facility] 10-11-2023 08:44-0500 Body weight 144.[address] Drew Mayen Work Phone: [facility] 10-11-2023 08:44-0500 Diastolic blood pressure 82 mm[Hg] Dr. Drew Mayen Work Phone: [facility] 10-11-2023 08:44-0500 Heart rate 82 /min Dr. Drew Mayen Work Phone: [facility] 10-11-2023 08:44-0500 Respiratory rate 16 /min Dr. Drew Mayen Work Phone: [facility] 10-11-2023 08:44-0500 SaO2% (BldA) [Mass fraction] 97 % Dr. Drew Mayen Work Phone: [facility] 10-11-2023 08:44-0500 Systolic blood pressure 130 mm[Hg] Dr. Drew Mayen Work Phone: [facility] 07-14-2023 10:05-0400 Body temperature 98.7 [degF] Dr. Drew Mayen Work Phone: [facility] 07-14-2023 10:05-0400 Body weight 140.[address] Drew Mayen Work Phone: [facility] 07-14-2023 10:05-0400 Diastolic blood pressure 94 mm[Hg] Dr. Drew Mayen Work Phone: [facility] 07-14-2023 10:05-0400 Heart rate 94 /min Dr. Drew Mayen Work Phone: [facility] 07-14-2023 10:05-0400 Respiratory rate 16 /min Dr. Drew Mayen Work Phone: [facility] 07-14-2023 10:05-0400 SaO2% (BldA) [Mass fraction] 96 % Dr. Drew Mayen Work Phone: [facility] 07-14-2023 10:05-0400 Systolic blood pressure 142 mm[Hg] Dr. Drew Mayen Work Phone: [facility] 07-09-2023 13:21-0400 Body height 193.[address] Drew Mayen Work Phone: [facility] 07-09-2023 13:21-0400 Body mass index (BMI) [Ratio] 38 kg/m2 Dr. Drew Mayen Work Phone: [facility] 07-09-2023 13:21-0400 Body temperature 98.8 [degF] Dr. Drew Mayen Work Phone: [facility] 07-09-2023 13:21-0400 Body weight 141.[address] Drew Mayen Work Phone: [facility] 07-09-2023 13:21-0400 Diastolic blood pressure 88 mm[Hg] Dr. Drew Mayen Work Phone: [facility] 07-09-2023 13:21-0400 Heart rate 69 /min Dr. Drew Mayen Work Phone: [facility] 07-09-2023 13:21-0400 Respiratory rate 16 /min Dr. Drew Mayen Work Phone: [facility] 07-09-2023 13:21-0400 SaO2% (BldA) [Mass fraction] 98 % Dr. Drew Mayen Work Phone: [facility] 07-09-2023 13:21-0400 Systolic blood pressure 148 mm[Hg] Dr. Drew Mayen Work Phone: [facility] 06-07-2023 13:32-0400 Body mass index (BMI) [Ratio] 38.2 kg/m2 Dr. Drew Mayen Work Phone: [facility] 06-07-2023 13:32-0400 Body temperature 97.9 [degF] Dr. Drew Mayen Work Phone: [facility] 06-07-2023 13:32-0400 Body weight 142.[address] Drew Mayen Work Phone: [facility] 06-07-2023 13:32-0400 Diastolic blood pressure 96 mm[Hg] Dr. Drew Mayen Work Phone: [facility] 06-07-2023 13:32-0400 Heart rate 94 /min Dr. Drew Mayen Work Phone: [facility] 06-07-2023 13:32-0400 Respiratory rate 18 /min Dr. Drew Mayen Work Phone: [facility] 06-07-2023 13:32-0400 SaO2% (BldA) [Mass fraction] 96 % Dr. Drew Mayen Work Phone: [facility] 06-07-2023 13:32-0400 Systolic blood pressure 140 mm[Hg] Dr. Drew Mayen Work Phone: [facility] 06-01-2023 09:35-0400 Body temperature 98.4 [degF] Dr. Drew Mayen Work Phone: [facility] 06-01-2023 09:35-0400 Diastolic blood pressure 80 mm[Hg] Dr. Drew Mayen Work Phone: [facility] 06-01-2023 09:35-0400 Heart rate 93 /min Dr. Drew Mayen Work Phone: [facility] 06-01-2023 09:35-0400 Respiratory rate 17 /min Dr. Drew Mayen Work Phone: [facility] 06-01-2023 09:35-0400 SaO2% (BldA) [Mass fraction] 98 % Dr. Drew Mayen Work Phone: [facility] 06-01-2023 09:35-0400 Systolic blood pressure 138 mm[Hg] Dr. Drew Mayen Work Phone: [facility] 06-01-2023 06:00-0400 Body mass index (BMI) [Ratio] 39.6 kg/m2 Dr. Drew Mayen Work Phone: [facility] 06-01-2023 06:00-0400 Body weight 147.[address] Drew Mayen Work Phone: [facility] 05-31-2023 13:56-0400 Body height 193.[address] Drew Mayen Work Phone: [facility] 05-30-2023 02:55-0400 Body temperature 99.2 [degF] Dr. Drew Mayen Work Phone: [facility] 05-30-2023 02:55-0400 Diastolic blood pressure 79 mm[Hg] Dr. Derw Mayen Work Phone: [facility] 05-30-2023 02:55-0400 Heart rate 97 /min Dr. Drew Mayen Work Phone: [facility] 05-30-2023 02:55-0400 Respiratory rate 16 /min Dr. Drew Mayen Work Phone: [facility] 05-30-2023 02:55-0400 SaO2% (BldA) [Mass fraction] 99 % Dr. Drew Mayen Work Phone: [facility] 05-30-2023 02:55-0400 Systolic blood pressure 146 mm[Hg] Dr. Drew Mayen Work Phone: [facility] 05-29-2023 22:14-0400 Body height 193.[address] Drew Mayen Work Phone: [facility] 05-29-2023 22:14-0400 Body mass index (BMI) [Ratio] 39.2 kg/m2 Dr. Drew Mayen Work Phone: [facility] 05-29-2023 22:14-0400 Body weight 146.[address] Drew Mayen Work Phone: [facility] 04-12-2023 08:50-0400 Body mass index (BMI) [Ratio] 38 kg/m2 Dr. Drew Mayen Work Phone: [facility] 04-12-2023 08:50-0400 Body temperature 97.8 [degF] Dr. Drew Mayen Work Phone: [facility] 04-12-2023 08:50-0400 Body weight 141.[address] Drew Mayen Work Phone: [facility] 04-12-2023 08:50-0400 Diastolic blood pressure 82 mm[Hg] Dr. Drew Mayen Work Phone: [facility] 04-12-2023 08:50-0400 Heart rate 85 /min Dr. Drew Mayen Work Phone: [facility] 04-12-2023 08:50-0400 Respiratory rate 12 /min Dr. Drew Mayen Work Phone: [facility] 04-12-2023 08:50-0400 SaO2% (BldA) [Mass fraction] 96 % Dr. Drew Mayen Work Phone: [facility] 04-12-2023 08:50-0400 Systolic blood pressure 146 mm[Hg] Dr. Drew Mayen Work Phone: [facility] 03-08-2023 11:07-0400 Body mass index (BMI) [Ratio] 38 kg/m2 Dr. Drew Mayen Work Phone: [facility] 03-08-2023 11:07-0400 Body temperature 98.1 [degF] Dr. Drew Mayen Work Phone: [facility] 03-08-2023 11:07-0400 Body weight 141.[address] Drew Mayen Work Phone: [facility] 03-08-2023 11:07-0400 Diastolic blood pressure 82 mm[Hg] Dr. Drew Mayen Work Phone: [facility] 03-08-2023 11:07-0400 Heart rate 77 /min Dr. Drew Mayen Work Phone: [facility] 03-08-2023 11:07-0400 Respiratory rate 14 /min Dr. Drew Mayen Work Phone: [facility] 03-08-2023 11:07-0400 SaO2% (BldA) [Mass fraction] 97 % Dr. Drew Mayen Work Phone: [facility] 03-08-2023 11:07-0400 Systolic blood pressure 128 mm[Hg] Dr. Drew Mayen Work Phone: [facility] 11-24-2022 13:28-0500 Body temperature 97.9 [degF] Dr. Drew Mayen Work Phone: [facility] Work Phone: 11-24-2022 13:28-0500 Diastolic blood pressure 74 mm[Hg] Dr. Drew Mayen Work Phone: [facility] Work Phone: 11-24-2022 13:28-0500 Heart rate 97 /min Dr. Drew Mayen Work Phone: [facility] Work Phone: 11-24-2022 13:28-0500 Respiratory rate 16 /min Dr. Drew Mayen Work Phone: [facility] Work Phone: 11-24-2022 13:28-0500 SaO2% (BldA) [Mass fraction] 98 % Dr. Drew Mayen Work Phone: [facility] Work Phone: 11-24-2022 13:28-0500 Systolic blood pressure 146 mm[Hg] Dr. Drew Mayen Work Phone: [facility] Work Phone: 11-24-2022 05:58-0500 Body weight 142.[address] Drew Mayen Work Phone: [facility] Work Phone: 11-23-2022 22:54-0500 Body height 193.[address] Drew Mayen Work Phone: [facility] Work Phone: 11-23-2022 22:54-0500 Body mass index (BMI) [Ratio] 38.8 kg/m2 Dr. Drew Mayen Work Phone: [facility] Work Phone: 11-23-2022 22:24-0500 Body temperature 97.6 [degF] [facility] Work Phone: 11-23-2022 22:24-0500 Diastolic blood pressure 79 mm[Hg] [facility] Work Phone: 11-23-2022 22:24-0500 Heart rate 100 /min [facility] Work Phone: 11-23-2022 22:24-0500 Respiratory rate 17 /min [facility] Work Phone: 11-23-2022 22:24-0500 SaO2% (BldA) [Mass fraction] 98 % [facility] Work Phone: 11-23-2022 22:24-0500 Systolic blood pressure 143 mm[Hg] [facility] Work Phone: 11-23-2022 19:45-0500 Body height 193.04 cm [facility] Work Phone: 11-23-2022 19:45-0500 Body mass index (BMI) [Ratio] 38.3 kg/m2 [facility] Work Phone: 11-23-2022 19:45-0500 Body weight 142.88 kg [facility] Work Phone: 04-29-2022 07:57-0400 Body mass index (BMI) [Ratio] 37.15 kg/m2 Trinidad Weems MD Work Phone: [facility] 04-29-2022 07:57-0400 Body weight 138.44 kg Trinidad Weems MD Work Phone: [facility] 02-04-2022 11:34-0500 Body temperature 96.69 [degF] Trinidad Weems MD Work Phone: [facility] 02-04-2022 11:34-0500 Diastolic blood pressure 94 mm[Hg] Trinidad Weems MD Work Phone: [facility] 02-04-2022 11:34-0500 Heart rate 130 /min Trinidad Weems MD Work Phone: [facility] 02-04-2022 11:34-0500 Respiratory rate 16 /min Trinidad Weems MD Work Phone: [facility] 02-04-2022 11:34-0500 Systolic blood pressure 152 mm[Hg] Trinidad Weems MD Work Phone: [facility] Encounters Encounter Date Encounter Type Care Provider Facility Start: 07-11-2025 End: 07-11-[address] Drew Mayen MD -[facility] Work Phone: Start: 07-11-2025 End: 07-11-[address] Drew Mayen MD Work Phone: -[facility] Start: 05-09-2025 End: 05-09-[address] Drew Mayen MD -[facility] Work Phone: Start: 05-09-2025 End: 05-09-[address] Drew Mayen MD Work Phone: [facility] Work Phone: Start: 02-07-2025 End: 02-07-2025 Patient encounter procedure Telly SORIANO -[facility] Work Phone: Start: 02-07-2025 End: 02-07-2025 ambulatory Drew Mayen Facility:[facility] Start: 01-31-2025 End: 01-31-2025 Emergency department patient visit Dr. Ruiz Schwartz MD -Emergency Department Work Phone: Start: 05-19-2024 End: 05-19-2024 ambulatory DREW MAYEN Facility:[facility] Start: 05-19-2024 End: 05-19-2024 Patient encounter procedure Vinnie Hernandez MD Work Phone: [facility] Comment on above: Acute otitis media, right (Primary Dx) Start: 02-18-2024 End: 02-18-[address] Drew Mayen Work Phone: [facility] Work Phone: Start: 02-18-2024 End: 02-18-[address] [facility] [facility] Work Phone: Start: 02-16-2024 End: 02-16-[address] Drew Mayen Work Phone: [facility] Work Phone: Start: 02-09-2024 End: 02-09-[address] Drew Mayen Work Phone: [facility] Work Phone: Start: 01-19-2024 End: 01-19-[address] Drew Mayen Work Phone: [facility] Work Phone: Start: 01-12-2024 End: 01-12-[address] Drew Mayen Work Phone: [facility] Work Phone: Start: 01-12-2024 End: 01-12-[address] Drew Mayen Work Phone: [facility] Internal Medicine Work Phone: Start: 01-10-2024 Non-patient / Non-visit Dr. Zayra Mayen Work Phone: [facility] Start: 01-10-2024 End: 01-10-2024 Admission to same day surgery center Dr[facility] Drew [facility] Start: 01-10-2024 End: 01-10-[address] Drew Mayen Work Phone: [facility] Work Phone: Start: 12-06-2023 End: 12-06-[address] Drew Mayen Work Phone: [facility] Work Phone: Start: 12-06-2023 End: 12-06-[address] Drew Mayen Work Phone: [facility] Work Phone: Start: 11-17-2023 Non-patient / Non-visit Dr. Zayra Mayen Work Phone: [facility] Start: 11-16-2023 Non-patient / Non-visit Dr. Zayra Mayen Work Phone: [facility] Start: 11-16-2023 End: 11-17-2023 Evaluation and management of inpatient Dr. Drew Mayen [facility] Work Phone: Start: 11-16-2023 End: 11-17-[address] Drew Mayen Work Phone: [facility] Work Phone: Start: 10-11-2023 End: 10-11-[address] Drew Mayen Work Phone: [facility] Work Phone: Start: 10-11-2023 End: 10-11-[address] Drew Mayen Work Phone: [facility] Internal Medicine Work Phone: Start: 07-21-2023 Non-patient / Non-visit Dr. Zayra Mayen Work Phone: [facility] Start: 07-21-2023 End: 07-21-[address] Drew Mayen Work Phone: [facility] Work Phone: Start: 07-21-2023 End: 07-21-[address] Drew May[facility] Work Phone: Start: 07-14-2023 End: 07-14-[address] Drew Mayen Work Phone: [facility] Vascular Surgery Work Phone: Start: 07-09-2023 End: 07-09-[address] Drew Mayen Work Phone: [facility] Internal Medicine Work Phone: Start: 06-07-2023 End: 06-07-[address] Drew Mayen Work Phone: [facility] Internal Medicine Work Phone: Start: 06-01-2023 Non-patient / Non-visit Dr. Zayra Mayen Work Phone: [facility] Work Phone: Start: 05-31-2023 Non-patient / Non-visit Dr. Zayra Mayen Work Phone: [facility] Work Phone: Start: 05-30-2023 Non-patient / Non-visit Dr. Zayra Mayen Work Phone: [facility] Start: 05-30-2023 End: 06-01-2023 Evaluation and management of inpatient Dr. Drew Mayen Work Phone: [facility]-Progressive Care Unit Work Phone: Start: 05-29-2023 End: 05-30-2023 Emergency department patient visit Dr. Drew Mayen Work Phone: [facility]-Emergency Department Work Phone: Start: 05-25-[address] Davy Mayen Work Phone: [facility] Work Phone: Start: 04-12-2023 End: 04-12-[address] Drew Mayen Work Phone: [facility] Internal Medicine Work Phone: Start: 03-08-2023 End: 03-08-[address] Drew Mayen Work Phone: [facility] Internal Medicine Work Phone: Start: 11-24-2022 Non-patient / Non-visit Dr. Zayra Mayen Work Phone: [facility] Start: 11-23-2022 End: 11-24-2022 Evaluation and management of inpatient [facility]-Intensive Care Unit Start: 11-23-2022 End: 11-24-[address] Drew Mayen Work Phone: [facility] Work Phone: Start: 04-29-2022 ambulatory TRINIDAD WEEMS Facility :[facility] Start: 04-29-2022 End: 04-29-2022 Postop follow up visit related to original px Trinidad Weems MD Work Phone: [facility] Comment on above: Malignant melanoma o f right lower extremity including hip (Primary Dx) Start: 03-18-2022 ambulatory TRINIDAD WEEMS Facility :[facility] Start: 03-18-2022 End: 03-18-2022 Patient encounter procedure Trinidad Weems MD Work Phone: [facility] Comment on above: S/P split thickness skin graft (Primary Dx); Encounter for follow-up; Malignant melanoma of right lower extremity including hip Start: 02-25-2022 ambulatory EFEWONGBE B OLEGHE Faci lity:[facility] Start: 02-18-2022 ambulatory EFEWONGBE B OLEGHE Faci lity:[facility] Start: 02-10-2022 End: 02-10-2022 ambulatory EFEWONGBE B HUMBERTOE Facility:[facility] Start: 02-04-2022 ambulatory EFEWONGBE B OLEGHE Faci lity:[facility] Start: 02-04-2022 End: 02-04-2022 Patient encounter procedure Trinidad Weems MD Work Phone: [facility] Comment on above: Malignant melanoma, unspecified site (Primary Dx) Start: 01-28-2022 ambulatory EFEWONGBE B OLEGHE Faci lity:[facility] Start: 01-23-2022 End: 01-23-2022 ambulatory EFEWONGBE B HUMBERTOE Facility:[facility] Start: 01-08-2022 Evaluation and management of inpatient DREW MAYEN Facility:[facility] Start: 01-07-2022 ambulatory SELF SELF Facility:[facility] Start: 01-07-2022 ambulatory DREW Lamas lity:[facility] Start: 01-06-2022 ambulatory TRINIDAD WEEMS Facility :[facility] Start: 12-26-2021 End: 12-26-2021 ambulatory DREW PAULCorinne Facility:[facility] Start: 12-24-2021 ambulatory DREW Lamas lity:[facility] Start: 12-10-2021 ambulatory JOSE JUDD Facility: [facility] Start: 12-10-2021 ambulatory DREW Lamas lity:[facility] Procedures Date Procedure Procedure Detail Performing Clinician Start: 01-31-[address] Drew Mayen MD Work Phone: Start: 02-18-2024 Diagnostic radiograp hy of abdomen Dr. Drew Mayen Work Phone: Start: 01-10-2024 Lap Robotic Umb/Vent ral Hernia (Not Applicable) Dr. Drew Mayen Work Phone: Start: 12-06-2023 Nasal Screen MRSA/MSSA Dr. Drew Mayen Work Phone: Start: 11-16-[address] Drew Mayen Work Phone: Start: 11-16-2023 Computed tomography of abdomen and pelvis with contrast Dr. Drew Mayen Work Phone: Start: 05-29-2023 Bacteria identified in Blood by Culture Dr. Drew Mayen Work Phone: H/O: surgery S/P split thickn ess skin graft Trinidad Weems MD Work Phone: History of cholecystectomy History of cholecystectomy Comment on above: 03/03/2021 Measurement of occul t blood in stool specimen using immunoassay Dr. Drew Mayen Work Phone: Plan of Treatment Date Care Activity Detail Author Start: 01-31-2025 [facility] Start: 07-30-2024 Influenza vaccination Influenza Vaccine (Season Ended) [facility] Start: 01-10-2024 Anesthesia hernia repair lower abdomen nos ANESTH REPAIR OF HERNIA [facility] Start: 01-10-2024 RPR AA HRN 1ST < 3 CM RDC RPR AA HRN 1ST < 3 CM RDC [facility] Start: 01-10-2024 Patient discharge [facility] Start: 11-29-2023 Behavioral Health Screening Behavioral Health Screening [facility] Start: 11-17-2023 Patient discharge [facility] Start: 11-17-2023 Blood chemistry [facility] Start: 11-16-2023 Laparoscopic appendectomy Laparoscopic, Appendectomy (Not Applicable) [facility] Start: 11-16-2023 Application of intermittent pneumatic compression device [facility] Start: 11-16-2023 Following clinical pathway protocol [facility] Start: 11-16-2023 Anesthesia intraperitoneal lower abd w/laps nos ANESTH SURG LOWER ABDOMEN [facility] Start: 11-16-2023 Laparoscopic appendectomy LAPAROSCOPY APPENDECTOMY [facility] Start: 11-16-2023 Ambulation without limitation [facility] Start: 11-16-2023 Assessment of risk of venous thromboembolism [facility] Start: 11-16-2023 Incentive spirometry [facility] Start: 11-16-2023 Insertion of catheter into peripheral vein [facility] Start: 11-16-2023 Oxygen therapy [facility] Start: 11-16-2023 Preoperative care [facility] Start: 11-16-2023 Providing care according to standard [facility] Start: 11-16-2023 [facility] Start: 11-16-2023 Verification routine [facility] Start: 11-16-2023 Admission procedure [facility] Start: 07-30-2023 Covid-19 Vaccine ( season) Covid-19 Vaccine ( season) [facility] Start: 06-07-2023 Patient referral [facility] Work Phone: Start: 06-01-2023 Patient discharge [facility] Start: 05-31-2023 Provision of activity privileges [facility] Start: 05-31-2023 [facility] Start: 05-30-2023 Following clinical pathway protocol [facility] Start: 05-30-2023 Assessment of risk of venous thromboembolism [facility] Start: 05-30-2023 Continuous positive airway pressure ventilation treatment [facility] Start: 05-30-2023 Elevation of affected extremity [facility] Start: 05-30-2023 Inhalation therapy procedure [facility] Start: 05-30-2023 Insertion of catheter into peripheral vein [facility] Start: 05-30-2023 Introduction of urinary catheter [facility] Start: 05-30-2023 Measuring intake and output [facility] Start: 05-30-2023 Oxygen therapy [facility] Start: 05-30-2023 Providing care according to standard [facility] Start: 05-30-2023 Provision of activity privileges [facility] Start: 05-30-2023 Referral to service [facility] Start: 05-30-2023 End: 05-30-2023 [facility] Start: 05-30-2023 Admission procedure [facility] Start: 05-29-2023 Bacteria identified in Blood by Culture Blood Culture [facility] Start: 05-29-2023 Blood culture [facility] Start: 12-10-2022 Potassium [Moles/volume] in Serum or Plasma POTASSIUM [facility] Start: 11-24-2022 Patient discharge [facility] Work Phone: Start: 11-23-2022 Following clinical pathway protocol [facility] Work Phone: Start: 11-23-2022 Assessment of risk of venous thromboembolism [facility] Work Phone: Start: 11-23-2022 Continuous positive airway pressure ventilation treatment [facility] Work Phone: Start: 11-23-2022 Elevation of affected extremity [facility] Work Phone: Start: 11-23-2022 Inhalation therapy procedure [facility] Work Phone: Start: 11-23-2022 Insertion of catheter into peripheral vein [facility] Work Phone: Start: 11-23-2022 Introduction of urinary catheter [facility] Work Phone: Start: 11-23-2022 Measuring intake and output [facility] Work Phone: Start: 11-23-2022 Oxygen therapy [facility] Work Phone: Start: 11-23-2022 Providing care according to standard [facility] Work Phone: Start: 11-23-2022 Provision of activity privileges [facility] Work Phone: Start: 11-23-2022 End: 11-23-2022 [facility] Work Phone: Start: 11-23-2022 Admission procedure [facility] Work Phone: Start: 11-23-2022 Verification routine [facility] Work Phone: Start: 11-23-2022 Blood chemistry [facility] Work Phone: Start: 11-23-2022 End: 11-23-2022 Blood culture [facility] Work Phone: Start: 11-23-2022 [facility] Work Phone: Start: 07-30-2022 Influenza vaccination INFLUENZA VACCINE (Season Ended) [facility] Start: 04-29-2022 End: 04-29-2022 Patient encounter procedure 04/29/2022 Office Visit Plastic Surgery Trinidad Weems [facility] [address] [facility] [address] [place] [address] [facility] Start: 02-25-2022 End: 02-25-2022 Patient encounter procedure 02/25/2022 Office Visit Plastic Surgery Trinidad Weems MD [address] [facility] [address] [place] [id number] [facility] Start: 09-10-2021 COVID-19 VACCINE (3 - Booster for Pfizer series) COVID-19 VACCINE (3 - Booster for Pfizer series) [facility] Start: 07-30-2021 Influenza vaccination INFLUENZA VACCINE (#1) [facility] Start: 2020 Lipid panel Lipid Screening [facility] Start: 2004 Third diphtheria, tetanus and acellular pertussis (DTaP) vaccination TDAP (ADULT) [facility] Start: 02-23-2004 Urine microalbumin profile DTaP,Tdap,Td Vaccine (6 - Tdap) [facility] Start: 2003 Hepatitis C screening Hepatitis C Screening [facility] Start: 2003 HIV screening HIV Screening [facility] Start: 2003 Tetanus vaccination TETANUS [facility] Start: 2000 HIV screening HIV SCREENING DISCUSSION [facility] Start: 1985 Hepatitis C antibody, confirmatory test HEPATITIS C VIRUS SCREENING [facility] Anion gap measurement [facility] Work Phone: Anion gap measurement [facility] Bacteria identified in Blood by Culture Blood Culture [facility] Work Phone: Blood chemistry [facility] Blood culture [facility] Work Phone: BUN/Creatinine ratio [facility] Work Phone: BUN/Creatinine ratio [facility] Calcium [Mass/volume ] in Serum or Plasma [facility] Work Phone: Calcium [Mass/volume ] in Serum or Plasma [facility] Carbon dioxide, tota l [Moles/volume] in Serum or Plasma [facility] Work Phone: Carbon dioxide, tota l [Moles/volume] in Serum or Plasma [facility] Chloride [Moles/volu me] in Serum or Plasma [facility] Work Phone: Chloride [Moles/volu me] in Serum or Plasma [facility] Comprehensive metabo lic 2000 panel - Serum or Plasma [facility] Creatinine [Moles/vo lume] in Serum or Plasma [facility] Work Phone: Creatinine [Moles/vo lume] in Serum or Plasma [facility] Glucose [Mass/volume ] in Serum or Plasma [facility] Work Phone: Glucose [Mass/volume ] in Serum or Plasma [facility] Hematocrit [Volume Fraction] of Blood [facility] Hemoglobin [Mass/vol ume] in Blood [facility] Lactic acid measurement [facility] Leukocytes [#/volume ] in Blood [facility] Lipid 1996 panel - S segun or Plasma [facility] Mean corpuscular hemoglobin concentration determination [facility] Mean corpuscular hemoglobin determination [facility] Measurement of renal function [facility] Work Phone: Measurement of renal function [facility] Neutrophil count [facility] Neutrophil percent differential count [facility] Patient Education ED Cellulitis [facility] Work Phone: Patient referral [facility] Work Phone: Platelets [#/volume] in Blood [facility] Potassium [Moles/vol ume] in Serum or Plasma [facility] Work Phone: Potassium [Moles/vol ume] in Serum or Plasma [facility] Red blood cell count [facility] Red cell distributio n width determination [facility] Sodium [Moles/volume ] in Serum or Plasma [facility] Work Phone: Sodium [Moles/volume ] in Serum or Plasma [facility] Urea nitrogen [Mass/volume] in Serum or Plasma [facility] Work Phone: Urea nitrogen [Mass/volume] in Serum or Plasma [facility] Immunizations Immunization Date Immunization Notes Care Provider [facility] 11-24-2022 influenza, injectabl e, quadrivalent, preservative free Dr. Drew Mayen Work Phone: [facility] 11-24-2022 influenza, seasonal, injectable Dr. Drew Mayen Work Phone: [facility] 11-24-2022 influenza virus vaccine, unspecified formulation Vinnie Hernandez MD Work Phone: [facility] 04-10-2021 COVID-19 vaccine, MR GRIFFITHS, Pfizer, 0.3 ML Trinidad Weems MD Work Phone: [facility] 03-20-2021 COVID-19 vaccine, MR GRIFFITHS, Pfizer, 0.3 ML Trinidad Weems MD Work Phone: [facility] Payers Date Payer Category Payer Self-pay [id number] 2025 Unknown [id number] 2018 Private Health Insurance [id number] 2018 Unknown [id number] 2018 Unknown [id number] 1985 Unknown [id number] [id number] 1985 Unknown [id number] [id number] 1985 Unknown [id number] [id number] 1985 Unknown [id number] [id number] 1985 Unknown [id number] [id number] 1985 Unknown [id number] 2.16840.1.283575.3.579.2.594 1985 Unknown [id number] [id number] 1985 Unknown [id number] 2.16840.1.045137.3.579.2.594 1985 Unknown [id number] 2.16840.1.260058.3.579.2.594 1985 Unknown [id number] [id number]4 1985 Unknown [id number] [id number] 1985 Unknown [id number] 2.16840.1.544702.3.579.2.594 1985 Unknown [id number] 2.16840.1.071305.3.579.2.594 1985 Unknown [id number] 2.840.1.813154.3.579.2.594 1985 Unknown [id number] 2.16840.1.152546.3.579.2.594 1985 Unknown [id number] 2.840.1.562534.3.579.2.594 1985 Unknown [id number] 2.840.1.954333.3.579.2.594 1985 Unknown [id number] 2.840.1.635847.3.579.2.594 1985 Unknown [id number] [id number] Unknown [facility] [id number] 3 Unknown [id number] Unknown [id number] Unknown [id number] Unknown [id number] [id number] Social History Date Type Detail Facility Start: 12-10-2021 End: 01-31-2025 Tobacco smoking status GAIS Never smoked tobacco [facility] Start: 12-10-2021 End: 05-19-2024 Tobacco use and exposure Smokeless tobacco non-user [facility] Start: 02-04-2022 End: 04-29-2022 Alcohol intake Lifetime non-drinker (finding) [facility] Start: 12-10-2021 History SDOH Alcohol Frequency 1 [facility] Start: 1985 Sex Assigned At Not on file O [facility] Start: 02-09-2022 End: 02-19-2022 Exposure to SARS-CoV-2 (event) Unable to assess [facility] Start: 02-15-2022 End: 02-25-2022 Exposure to SARS-CoV-2 (event) Not sure [facility] Start: 11-23-2022 End: 02-16-2024 Tobacco smoking status NHIS Unknown if ever smoked [facility] Start: 1985 Sex Assigned At Male [facility] Start: 05-19-2024 History of Social function [facility] Start: 05-19-2024 Tobacco use panel [facility] Medical Equipment Procedure Code Equipment Code Equipment Origin al Text Equipment Identifier Dates Appendectomy, laparoscopic Surgical staple loading unit, non-cutting [id number] FDA Start: 11-16-2023 Dressing Wound 5x4in 2 Layer Matrix Bovine Collagen - [id number] Start: 01-23-2022 ([id number]) Extra-gynaecolog ic al surgical mesh, composite-polymer [id number] FDA Start: 01-10-2024 Goals Date Patient Goal Desired Activity /State Comment on above: Formatting of this n ote might be different from the original. Riaz will be compliant with incision/wound care as ordered by physician. Riaz will remain free of signs and symptoms of infection and knowledgeable of what/when/how to report concerns. Riaz and caregiver will be knowledgeable of who provides their dressing supplies and how to obtain them. [facility] provided Riaz and caregiver with wound care education related to the above. Functional Status Date Assessment Result Facility 11-17-2023 Functional status Ambulates [facility] Work Phone: 06-01-2023 Functional status [facility]ulates [facility] Work Phone: 11-24-2022 Functional status Ambulates [facility] Work Phone: Mental Status Date Assessment Result Facility 01-10-2024 Cognitive function Level Of Consciousness Sedated [facility] Work Phone: 01-10-2024 Cognitive function Voice/Name [facility] Work Phone: 11-17-2023 Cognitive function Voice/Name [facility] Work Phone: 06-01-2023 Cognitive function Voice/Name [facility] Work Phone: Clinical Notes 02-19-2021 to 05-09-2025 Note Date & Type Note Facility 05-09-2025 Evaluation note Diagnosis Onset Date Resolution Dermatitis chronic May 09 2:23pm Hypertension chronic May 09 2:23pm [facility] Work Phone: 1(494) 768-519003-12-2025 Evaluation note* Diagnosis Onset Date Resolution Status Admit Date Allergic urticaria acute February 07, 2025 1:25pm Hypertension chronic February 07, 2025 1:25pm [facility] Work Phone: 1(835) 899-544306-21-2024 NoteHNO ID: [id number] Author: VINNIE HERNANDEZ MD Service: ? Author Type: Physician Type: Progress Notes Filed: 05/19/2024 10:23 Note Text: Patient presents with: Ear Problem: Bilat ear problem, states they are feeling clogged, loss of hearing, scratching ears couple months increasing x couple days into discomfort HPI: Feeling right ear is plugged for 4 days. Positive symptoms: decreased hearing, months of bilateral canal pruritus Negative symptoms: Cough, Sore throat, Earache, Nasal Congestion, Rhinorrhea, Fever, otorrhea, , OTC: ear wax drops PAST MEDICAL HISTORY Diagnosis Date Hypertension Malignant melanoma (HCC) right foot PAST SURGICAL HISTORY Procedure Laterality Date APPENDECTOMY INGUINAL HERNIA REPAIR HX Bilateral LASIK REMOVAL GALLBLADDER MEDICATIONS: Current Outpatient Medications Medication Sig triamterene-hydroCHLOROthiazide (MAXZIDE-25) 37.5-25 mg per tablet Take 1 tablet by mouth every morning. valsartan (DIOVAN) 80 mg tablet Take 80 mg by mouth once daily. loratadine 10 mg cap Take by mouth once daily. No current facility-administered medications for this visit. ALLERGIES: ALLERGIES Allergen Reactions Shellfish Derived GI Upset VITALS: BP 144/90 Pulse 101 Temp 36.2 ?C (97.1 ?F) Resp 18 Wt (!) 147 kg (324 lb 1.2 oz) SpO2 98% PHYSICAL EXAM: GEN: Pleasant, in no acute distress. HEENT: PERRL, EOMI, conjunctiva clear Ears: Circumferential yellow debris in the right canal. Left canal with fine scale. Right tympanic membrane with erythema and effusion. LTM without erythema, bulge, or effusion Sinuses: non-tender frontal sinus, non-tender maxillary sinuses Throat: moist mucous membranes, no erythema, no exudate Neck: supple, no thyromegaly, no lymphadenopathy HEART: regular rate and rhythm, no murmurs LUNGS: clear to auscultation, no wheezes or crackles, no increased WOB ASSESSMENT/PLAN: 1. Acute otitis media, right - ICD9: 382.9, ICD10: H66.91 - Will begin treatment with - AMOXICILLIN 875 MG TABLET Continue wax softening drops to the right canal. Consider ENT evaluation of chronic ear eczema. Vinnie Hernandez, [facility]06-21-2024 History of Present illness Narrative* Vinnie Hernandez MD - 05/19/2024 10:01 AM EDT Patient presents with: Ear Problem: Bilat ear problem, states they are feeling clogged, loss of hearing, scratching ears couple months increasing x couple days into discomfort HPI: Feeling right ear is plugged for 4 days. Positive symptoms: decreased hearing, months of bilateral canal pruritus Negative symptoms: Cough, Sore throat, Earache, Nasal Congestion, Rhinorrhea, Fever, otorrhea, , OTC: ear wax drops PAST MEDICAL HISTORY Diagnosis Date Hypertension Malignant melanoma (HCC) right foot PAST SURGICAL HISTORY Procedure Laterality Date APPENDECTOMY INGUINAL HERNIA REPAIR HX Bilateral LASIK REMOVAL GALLBLADDER MEDICATIONS: Current Outpatient Medications Medication Sig triamterene-hydroCHLOROthiazide (MAXZIDE-25) 37.5-25 mg per tablet Take 1 tablet by mouth every morning. valsartan (DIOVAN) 80 mg tablet Take 80 mg by mouth once daily. loratadine 10 mg cap Take by mouth once daily. No current facility-administered medications for this visit. ALLERGIES: ALLERGIES Allergen Reactions Shellfish Derived GI Upset VITALS: BP 144/90 Pulse 101 Temp 36.2 C (97.1 F) Resp 18 Wt (!) 147 kg (324 lb 1.2 oz) SpO2 98% PHYSICAL EXAM: GEN: Pleasant, in no acute distress. HEENT: PERRL, EOMI, conjunctiva clear Ears: Circumferential yellow debris in the right canal. Left canal with fine scale. Right tympanic membrane with erythema and effusion. LTM without erythema, bulge, or effusion Sinuses: non-tender frontal sinus, non-tender maxillary sinuses Throat: moist mucous membranes, no erythema, no exudate Neck: supple, no thyromegaly, no lymphadenopathy HEART: regular rate and rhythm, no murmurs LUNGS: clear to auscultation, no wheezes or crackles, no increased WOB ASSESSMENT/PLAN: 1. Acute otitis media, right - ICD9: 382.9, ICD10: H66.91 - Will begin treatment with - AMOXICILLIN 875 MG TABLET Continue wax softening drops to the right canal. Consider ENT evaluation of chronic ear eczema. [facility]innie Hernandez [facility] History and physical note Author Trinidad Nicolas [facility] January 10, 2024 7:37am Note Date/Time January 10, 2024 7:36am [facility] Medical Records Department [address] [place] [address] History & Physical Exam 01/10/24 0736 MR#: [id number] Acct: [id number] Name: RIAZ DIOP Rep #:[id number] : 1985 38 From: Trinidad Mcfadden PCP: Dr. Drew Mayen MD Status:[facility] Location: [place] [address] History and Physical Date of Admission: 01/10/24 Date of Service: 12/06/23 MR#: [id number] Acct: [id number] Name: RIAZ DIOP Rep #: [id number] : 1985 Provider: Dr. Trinidad Nicolas MD Age/Sex: 38/M Location: [facility] Status: Signed Intake Vital Signs 11/16/2315:26 12/06/2414:01 Height 6 ft 4 in 6 ft 4 in Weight: 316 lb 4 oz BMI 38.5 BP 140/84 H Blood Pressure Location Rt brachial Position Sitting Respiration 18 Pulse 89 Pulse Source Monitor Temp 97.4 F L Temp Source Temporal Pulse Oximetry (%) 97 Oxygen Delivery Method room air Intake Visit Reasons: APPY 11/16, DISCUSS HERNIA SURGERY Chief Complaint: appy 11/16, discuss hernia surgery Is patient in pain?: No Allergies shellfish derived Allergy (Severe, Verified 12/06/23 15:00) Nausea/Vom/Diarrhea Medications loratadine 10 mg capsule 10 mg PO DAILY ALLERGIES 02/13/21 [History Confirmed 12/06/23] triamterene 37.5 mg-hydrochlorothiazide 25 mg tablet 1 tab PO QAM BLOOD PRESSURE#90 tabs 07/09/23 [Rx Confirmed 12/06/23] valsartan 80 mg tablet 80 mg PO DAILY BLOOD PRESSURE #90 tabs 07/09/23 [Rx Confirmed 12/06/23] Subjective Details: Patient presents following laparoscopic appendectomy on 11/16/2023. Since hospital discharge they have been doing well. They report no significant postoperative pain. They report tolerance of a diet. Concerning their bowel movements, they report that these have normalized after an initial period of constipation (3 days). They had no wound concerns. They do share that they areinterested in being underway with their umbilical hernia repair as soon as possible Mr. Diop states that his postponed her planned hysterectomy dueto his recovery from his appendectomy and that they, jointly, wish to go throughwith his hernia repair before she proceeds with her surgery. Discussing Mr. Diop's hernia specifically, he denies any pain from this site. He shares that he never had pain, however, when he underwent surgery on it the first time with Dr. Prado of [facility]. He confirms that although he was tested for an infectious cause for his history of right leg cellulitis no infection was ever detected. To this end he denies any history of boils. He shares that his blood sugars have been somewhat erratic in the past, but that when tested for diabetes through a A1c screening is number was "perfect". He confirms that he is a non-smoker. As alluded to above, Mr. Diop underwent cholecystectomy with primary umbilical hernia repair by Dr. Prado in 2020. Objective Details: Constitutional: No acute distress, upbeat Abdomen: Well-healing port site incisions, nondistended, soft, nontender to palpation. Umbilical hernia defect is palpable with some scar tissue in the defect opening. Patient's hernia defect is nontender with palpation Coding Level of Care Code Off vis,est,level 4 Diagnoses Status post laparoscopic appendectomy Z90.49 Umbilical hernia without obstruction and without gangrene K42.9 Comment Visit serves as a postoperative visit as well as a consultation visit [facility] Medical History Asthma Congenital absence of left kidney Diarrhea Discoloration of skin Elevated random blood glucose level Fatty infiltration of liver Gallstones Hypersomnolence Hypertension (Unknown) TARAS (iron deficiency anemia) Localized swelling of right foot Melanoma Obesity (BMI 30-39.9) DORENE (obstructive sleep apnea) Rash Shortness of breath Shoulder pain Sleep apnea Venous insufficiency of both lower extremities Surgical History History of cholecystectomy History of hernia repair History of wisdom tooth extraction Hx of foot surgery Family History Mother Asthma Cancer basal cell Social History household members: spouse Smoking Status: Never smoker alcohol intake: never substance use type: does not use what type of physical activity do you participate in: bicycling frequency: 1-2 times per week Assessment and Plan (No Qualifiers) Assessment and Plan (1) Status post laparoscopic appendectomy: Status: Acute Comment: Patient is a 38-year-old male who presents for his first postoperative visit following uncomplicated laparoscopic appendectomy on 11/16/2023. He has recovered well from the surgery. There are no lingering issues. Postoperative pathology was reviewed. Patient now wishes to be underway with plans for an umbilical hernia repair. I have shared that I would like to wait at least 6 weeks before proceeding with the second surgery. This visit did serve, however,as a preop for that procedure and we will now look for a date sometime in December. Plan: ? No further issues with respect to patient's appendectomy (2) Umbilical hernia without obstruction and without gangrene: Status: Chronic Comment: Patient with a longstanding history of umbilical hernia. This was previously repaired, primarily, by Dr. Prado during cholecystectomy in 2020. CT imaging for patient's appendicitis diagnosis confirmed recurrence and an obvious defect was found at the time of his operation. However, given the infected nature of patient's appendicitis case as well as the hernia recurrence I recommended deferring any future repair until he later date. Mr. Diop is eager to be underway with this repair although he remains asymptomatic. I reviewed with himthe CT imaging which shows an approximately 2 cm x 3-1/2 cm fascial defect and discussed repair options including open umbilical hernia repair with mesh versusminimally invasive hernia repair with mesh. Given that he is younger and does some physical activity I have suggested that he might consider a minimally invasive approach and he suggested that he saw merit in this recommendation and wished to proceed as described. Therefore, we will tentatively plan for robot-assisted umbilical hernia repair with mesh in December. Plan: ? Obtain MRSA swab of the nares ? Tentative robot-assisted umbilical hernia repair with mesh December 2023. Outpatient procedure anticipated. I have examined the patient and the H&P has been reviewed. There are no clinicalchanges since date of exam. The above MRSA screening was negative. Today I have reviewed expectations for the surgery as well as post procedure activity restrictions. Patient's spouse was not at the previous visit and wishes to havethese clarified before the both of them. They both expressed understanding and deny further questions. Therefore we will proceed to the operating room for robot-assisted umbilical hernia repair with mesh as discussed in further detail above. 01/10/24 0737 <Electronically signed by Trinidad Nicolas MD> Cosigner Signature (if applicable): CC: Dr. Drew Mayen MD; Dr. Trinidad Nicolas MD~ Signed [facility] Work Phone: 1(135) 701-141912-20-2023 Progress note Author Joann Cheng [facility] November 17, 2023 9:23am Note Date/Time November 17, 2023 9:09am [facility] Medical Records Department [address] [place] [address] Progress Note - Surgery 11/17/2333 MR#: [id number] Acct: [id number] Name: RIAZ DIOP Rep #:[id number] : 1985 38 From: Joann SORIANO PA-C PCP: Dr. Drew Mayen MD Status:A DM DEISY Location: [place] [address] Subjective Subjective Patient evaluated resting comfortably in bed. He notes minimal amount of incisional pain/discomfort. He denies nausea, vomiting, fever. He notes his RUQ pain is completely gone. He feels hungry. Objective Data Objective Data Vital Signs: Vital Signs Temp Pulse Resp BP Pulse Ox O2 Del Method O2 Flow Rate 99.0 F 90 18 134/82 H 97 Room Air 2 11/17/23 05:58 11/17/23 05:58 11/17/23 05:58 11/17/23 05:58 11/17/23 06:25 11/17/23 06:25 11/17/23 05:58 Oxygen Flow Rate (L/min) 2 Oxygen Delivery Method Room Air Weight: 322 lb 6 oz Body Mass Index (BMI) 39.2 Intake & Output: Intake and Output for Last 24 Hours 11/15/23 11/16/23 11/17/23 23:59 23:59 23:59 Intake Total 2147.5 / 2147.5 600 / 600 Balance 2147.5 / 2147.5 600 / 600 Lab / Micro Data 11/17/23 03:20 11/17/23 03:20 Labs: Laboratory Results - last 24 hr 11/16/23 10:15: WBC 13.3 H, RBC 4.67, Hgb 14.4, Hct 41.8, MCV 89.5, MCH 30.8, MCHC 34.4, RDW Std Deviation 39.8, RDW Coeff of Geoff 12.2, Plt Count 367, MPV 10.1, Immature Gran % (Auto) 0.400, Neut % (Auto) 85.6 H, Lymph % (Auto) 9.2 L, Candler % (Auto) 4.5, Eos % (Auto) 0.1, Baso % (Auto) 0.2, Absolute Neuts (auto) 11.4 H, Absolute Lymphs (auto) 1.22, Nucleated RBC % 0, Sodium 139, Potassium 3.8, Chloride 108 H, Carbon Dioxide 26.0, Anion Gap 5, BUN 10, Creatinine 1.07, Estim Creat Clear Calc 114.92, Est GFR (MDRD) Af Amer 99, Est GFR (MDRD) Non-Af 82, BUN/Creatinine Ratio 9.3 L, Glucose 115 H, Calcium 8.9, Total Bilirubin 0.70, AST 19, ALT 51, Alkaline Phosphatase 70, Total Protein 7.3, Albumin 3.8, Globulin 3.5, Albumin/Globulin Ratio 1.1, Lipase 28 11/16/23 11:55: Urine Color Straw, Urine Clarity Clear, Urine pH 6.5, Ur Specific [place] 1.010, Urine Protein Negative, Urine Glucose (UA) Normal, UrineKetones Negative, Urine Occult Blood Negative, Urine Nitrite Negative, Urine Bilirubin Negative, Urine Urobilinogen Normal, Ur Leukocyte Esterase Negative, Urine RBC 0 SEEN, Urine WBC 0 SEEN, Ur Squamous Epith Cells 0-5 SEEN, Urine Bacteria 0 SEEN, Urine Mucus 0 SEEN 11/17/23 03:20: WBC 7.3, RBC 4.01 L, Hgb 12.6 L, Hct 37.2 L, MCV 92.8, MCH 31.4,MCHC 33.9, RDW Std Deviation 42.5, RDW Coeff of Geoff 12.5, Plt Count 319, MPV 10.0, Immature Gran % (Auto) 0.300, Neut % (Auto) 76.6 H, Lymph % (Auto) 15.2 L,Candler % (Auto) 7.1, Eos % (Auto) 0.5, Baso % (Auto) 0.3, Absolute Neuts (auto) 5.6, Absolute Lymphs (auto) 1.11, Nucleated RBC % 0, Sodium 142, Potassium 3.9, Chloride 109 H, Carbon Dioxide 26.0, Anion Gap 7, BUN 8, Creatinine 0.98, Estim Creat Clear Calc 125.48, Est GFR (MDRD) Af Amer 110, Est GFR (MDRD) Non-Af 91, BUN/Creatinine Ratio 8.2 L, Glucose 132 H, Calcium 7.6 L Radiography Diagnostic Testing: Radiology Impression Abdomen/Pelvis CT 11/16/23 09:57 IMPRESSION: 1. Thickening of the appendix with periappendiceal stranding consistent with acute appendicitis. 2. Hepatic steatosis, mild splenomegaly with collateral veins in the splenic hilum which may reflect portal venous hypertension. Electronically Signed: Jr Nation MD at 12:14 EST , ADDENDUM: 11/16/23 1224 IMPRESSION: 1. Thickening of the appendix with periappendiceal stranding consistent with acute appendicitis. 2. Hepatic steatosis, mild splenomegaly with collateral veins in the splenic hilum which may reflect portal venous hypertension. N.B. : The above Results were Read Back by Jr Nation MD to Antonio Ferguson DO, and understanding confirmed on 11/16/2023 12:17:16 (ET). Electronically Signed: Jr Nation MD at 12:14 EST , Physical Exam Const alert, oriented x3 and no apparent distress GI normal to inspection, nondistended, normoactive bowel sounds GI Narrative: Abdominal- incisions c/d/i. No erythema or infection noted. Assessment & Plan Assessment/Plan (1) Acute appendicitis: QUALIFIERS: Acute appendicitis type: with localized peritonitis Appendicitis gangrene presence: unspecified whether gangrene present Appendicitis perforation presence: unspecified whether perforation present Appendicitis abscess presence: without abscess Qualified Code(s): K35.30 - Acute appendicitis with localized peritonitis, without perforation or gangrene PLAN: I have evaluated the patient in conjunction with Dr. Nicolas. Patient progressing well Increase to regular diet Plan for discharge today Charges/Coding Visit Charges Inpatient E&M: 93349 Subs Hosp L1 (no charge; post-op) 11/17/23 0923 <Electronically signed by Joann SORIANO PA-C> Cosigner Signature (if applicable): CC: ~ Signed [facility] Work Phone: 1(299) 494-527012-19-2023 Procedure [facility] 11-16-2023 Discharge summary Author Antonio Ferguson [facility] November 16, 2023 4:15pm Note Date/Time November 16, 2023 9:42am [facility] Medical Records Department [address] [place] [address] Emergency Department Summary 11/16/23 MR#: [id number] Acct: [id number] Name: RIAZ DIOP Rep #:[id number] : 1985 38 From: Antonio Sanchez PCP: Dr. Drew Mayen MD Status:A DM DEISY Location: [place] [address]803-1 HPI HPI - GI History of Present Illness Chief Complaint: Abd Pain Informant: patient Abdominal Pain/Flank Pain Onset: Today Context: Sudden Onset Timing: Continuous Quality: Sharp and Stabbing Location: Epigastric and RLQ Worsened by: Movement and - (Deep breathing, pressure, and leaning on his right side) Relieved by: Nothing Nausea/Vomiting/Emesis GI Symptom: Positive for Nausea; Negative for Vomiting Diarrhea/Melena/Hematochezia GI Symptom: Negative for Diarrhea, Melena or Hematochezia Associated Symptoms Associated Symptoms: Negative for Dysuria, Frequency or Hematuria Narrative Narrative: Patient presents with abdominal pain that began today. Patient states it began over the epigastric area but has since moved to the right lower abdomen. Patient describes it as sharp and stabbing. Patient states it is worse with deep breathing, pressure, and leaning on his right side. Patient states nothingseems to help with it. Patient admits to some nausea but denies any vomiting. Patient does state he is hungry but just does not want to eat because he fears that the pain would get worse if he ate. Patient denies any diarrhea, melena, or hematochezia. Patient denies any dysuria, frequency, or hematuria. [facility] Medical History Asthma Congenital absence of left kidney Diarrhea Discoloration of skin Elevated random blood glucose level Fatty infiltration of liver Gallstones Hypersomnolence Hypertension (Unknown) TARAS (iron deficiency anemia) Localized swelling of right foot Melanoma Obesity (BMI 30-39.9) DORENE (obstructive sleep apnea) Rash Shortness of breath Shoulder pain Sleep apnea Venous insufficiency of both lower extremities Home Medications loratadine 10 mg capsule 10 mg PO DAILY ALLERGIES 02/13/21 [History Last Taken Unknown] triamterene 37.5 mg-hydrochlorothiazide 25 mg tablet 1 tab PO QAM BLOOD PRESSURE#90 tabs 07/09/23 [Rx Last Taken Unknown] valsartan 80 mg tablet 80 mg PO DAILY BLOOD PRESSURE #90 tabs 07/09/23 [Rx Last Taken Unknown] Allergy/AdvReac Type Severity Reaction Status Date / Time shellfish derived Allergy Severe Nausea/Vom/ Verified 10/11/23 08:40 Diarrhea Family History Mother Asthma Cancer basal cell Surgical History History of cholecystectomy History of hernia repair History of wisdom tooth extraction Hx of foot surgery Social History household members: spouse Smoking Status: Never smoker alcohol intake: never substance use type: does not use what type of physical activity do you participate in: bicycling frequency: 1-2 times per week ROS ROS ED Constitutional Constitutional ED: Denies chills or fever(s) Eyes Eyes: Denies blurry vision or change in vision ENT ENT ED: Denies rhinorrhea or sore throat Cardiovascular Cardiovascular: Denies chest pain or palpitations Respiratory/Chest Respiratory/Chest: Denies cough or dyspnea Gastrointestinal Gastrointestinal: Reports abdominal pain and nausea; Denies diarrhea, melena or vomiting Genitourinary Genitourinary ED: Denies dysuria or hematuria Musculoskeletal Musculoskeletal: Denies back pain or neck pain Integumentary Denies abscess or rash Neurologic Neurologic: Denies headache(s) or weakness Allergic/Immunologic Allergic/Immunologic ED: Denies mouth swelling or urticaria EXAM Physical Exam Const Vital Signs: 11/16/23 09:33 Temperature 97.8 F Temperature Source Temporal Pulse Rate 107 H Respiratory Rate 16 Blood Pressure 139/93 H Blood Pressure Mean 108 Pulse Ox 98 Oxygen Delivery Method Room Air Positive well nourished, well developed and obese General Appearance ED: well developed and NAD Nutritional Appearance: obese HEENT Reports moist mucous membranes Neck supple and no JVD Resp normal respiratory effort and clear to auscultation bilaterally Cardio regular rate and regular rhythm GI non-distended Palpation: soft and tender RLQ and RUQ; Negative for guarding or rebound tenderness present Extremity full ROM Neuro CN's II-XII intact bilaterally, moves all extremities and no sensory deficits noted Sensorium / Orientation: alert Motor Exam: strength 5/5 throughout Psych mental status grossly normal MDM MDM MDM Narrative Medical decision making narrative: Differential diagnosis includes appendicitis, bowel obstruction, perforation, pancreatitis, gastroenteritis, urinary tract infection, ureteral calculus, and mesenteric adenitis. CT scan of the abdomen and pelvis will be obtained to assess for appendicitis, bowel obstruction, and perforation. CBC will be obtained to assess for leukocytosis and anemia. Comprehensive metabolic profilewill be obtained to assess for hepatic function, renal function, and electrolyteabnormality. Lipase will be obtained to assess for pancreatitis. Urinalysis will be obtained to assess for urinary tract infection and hematuria. Lab Data Attestation: I reviewed the patient's lab results. Lab results narrative: CBC was reviewed. There is a mild leukocytosis of 13.3. The remainder is within normal limits. Comprehensive metabolic profile was reviewed and was essentially within normal limits. Lipase was reviewed and was normal at 28. Urinalysis was reviewed. There is no evidence of urinary tract infection or hematuria. Labs: Laboratory Results - last 24 hr 11/16/23 11/16/23 10:15 11:55 WBC 13.3 H RBC 4.67 Hgb 14.4 Hct 41.8 MCV 89.5 MCH 30.8 MCHC 34.4 RDW Std Deviation 39.8 RDW Coeff of Geoff 12.2 Plt Count 367 MPV 10.1 Immature Gran % (Auto) 0.400 Neut % (Auto) 85.6 H Lymph % (Auto) 9.2 L Candler % (Auto) 4.5 Eos % (Auto) 0.1 Baso % (Auto) 0.2 Absolute Neuts (auto) 11.4 H Absolute Lymphs (auto) 1.22 Nucleated RBC % 0 Sodium 139 Potassium 3.8 Chloride 108 H Carbon Dioxide 26.0 Anion Gap 5 BUN 10 Creatinine 1.07 Estim Creat Clear Calc 114.92 Est GFR (MDRD) Af Amer 99 Est GFR (MDRD) Non-Af 82 BUN/Creatinine Ratio 9.3 L Glucose 115 H Calcium 8.9 Total Bilirubin 0.70 AST 19 ALT 51 Alkaline Phosphatase 70 Total Protein 7.3 Albumin 3.8 Globulin 3.5 Albumin/Globulin Ratio 1.1 Lipase 28 Urine Color Straw Urine Clarity Clear Urine pH 6.5 Ur Specific [place] 1.010 Urine Protein Negative Urine Glucose (UA) Normal Urine Ketones Negative Urine Occult Blood Negative Urine Nitrite Negative Urine Bilirubin Negative Urine Urobilinogen Normal Ur Leukocyte Esterase Negative Urine RBC 0 SEEN Urine WBC 0 SEEN Ur Squamous Epith Cells 0-5 SEEN Urine Bacteria 0 SEEN Urine Mucus 0 SEEN Radiography Diagnostic Testing: Clinical Impression(s) from Imaging Studies Abdomen/Pelvis CT 11/16/23 09:57 IMPRESSION: 1. Thickening of the appendix with periappendiceal stranding consistent with acute appendicitis. 2. Hepatic steatosis, mild splenomegaly with collateral veins in the splenic hilum which may reflect portal venous hypertension. Electronically Signed: Jr Nation MD at 12:14 EST , ADDENDUM: 11/16/23 1224 IMPRESSION: 1. Thickening of the appendix with periappendiceal stranding consistent with acute appendicitis. 2. Hepatic steatosis, mild splenomegaly with collateral veins in the splenic hilum which may reflect portal venous hypertension. N.B. : The above Results were Read Back by Jr Nation MD to Antonio Ferguson DO, and understanding confirmed on 11/16/2023 12:17:16 (ET). Electronically Signed: Jr Nation MD at 12:14 EST , CT scan of the abdomen pelvis was obtained. There is thickening of the appendixwith periappendiceal stranding consistent with acute appendicitis. There is hepatic steatosis and mild splenomegaly. This was interpreted by the radiologist was also independently reviewed by myself. EKG Initial EKG: Attestation: I personally reviewed and interpreted this EKG as follows: Interpretation: Sinus Rhythm (91) and No Acute Injury Pattern Comments: EKG was obtained. On my independent interpretation, it showed anormal sinus rhythm with a rate of 91. MD interval, QRS interval, and QTc intervals were all normal. [place] was normal. There are no acute ST or T wave changes. Prior EKG tracings: available for review Prior: Unchanged (02/15/2021) Treatment and Re-Evaluation :: Patient was given IV fluids, morphine, and Zofran. Patient was started on Zosyn. Patient was advised of his findings. Case was discussed with Dr. Nicolas from general surgery. He will be in to evaluate the patient and likely take thepatient to the operating room. Patient understands and is agreeable with the plan. All questions were answered. Discharge Plan Dx/Rx/DC Orders Clinical Impression: Abdominal pain, Acute appendicitis Disposition Disposition: [facility] What to do if you have Problems For any increased pain, shortness of breath, bleeding, nausea or vomiting, chestpain, or any unexpected problems, contact your Primary Care Provider. Call [facility] ([phone]) or report to the closest Emergency Room. Call 911 if necessary. 11/16/23 1422 <Electronically signed by Antonio Ferguson DO> Cosigner Signature (if applicable): CC: Dr. Drew Mayen MD ~ Signed [facility] Work Phone: 1(261) 595-588412-19-2023 History and physical note Author Trinidad Nicolas [facility] November 16, 2023 3:58pm Note Date/Time November 16, 2023 1:18pm [facility] Medical Records Department [address] [place] [id number] History & Physical Exam 11/16/23 1316 MR#: [id number] Acct: [id number] Name: RIAZ DIOP Rep #:[id number] : 1985 38 From: Joann SORIANO PA-C PCP: Dr. Drew Mayen MD Status:A DM DEISY Location: [place] [address] HPI - General General Date of Admission: 11/16/23 Date of Service: 11/16/23 Chief Complaint: Abdominal pain HPI Narrative RIAZ DIOP, is a 38 M who presents with 1 day history of abdominal pain which started at 0300 AM. He noted the pain started in his epigastric region. Hethought this was gas and waited until 0600 AM when [employer]findads opened and purchased some gas-x. He noted the pain continued even after taking the gas-x medication and the pain moved to the right lower quadrant. Patient also noted associated nausea. He denies vomiting, fever, lack of appetite. He notes having normal stools. He denies being around any sick contacts. Patient notes a history of hypertension and asthma. He is on medication for high blood pressure and had asthma as a child. No recent history of an asthma attack. Patient has recently had multiple surgeries this year. Patient notes an ERCP and laparoscopic cholecystectomy earlier this year at [facility] and more recently an excision of a cancerous skin lesion from the bottom of hiss foot followed by a skin graft placement. A CT scan of the ab/pel was obtained demonstrating IMPRESSION: 1. Thickening of the appendix with periappendiceal stranding consistent with acute appendicitis. 2. Hepatic steatosis, mild splenomegaly with collateral veins in the splenic hilum which may reflect portal venous hypertension. WBC 13.3 with left shift. [facility] Medical History Asthma Congenital absence of left kidney Diarrhea Discoloration of skin Elevated random blood glucose level Fatty infiltration of liver Gallstones Hypersomnolence Hypertension (Unknown) TARAS (iron deficiency anemia) Localized swelling of right foot Melanoma Obesity (BMI 30-39.9) DORENE (obstructive sleep apnea) Rash Shortness of breath Shoulder pain Sleep apnea Venous insufficiency of both lower extremities Home Medications loratadine 10 mg capsule 10 mg PO DAILY ALLERGIES 02/13/21 [History Last Taken Unknown] triamterene 37.5 mg-hydrochlorothiazide 25 mg tablet 1 tab PO QAM BLOOD PRESSURE#90 tabs 07/09/23 [Rx Last Taken Unknown] valsartan 80 mg tablet 80 mg PO DAILY BLOOD PRESSURE #90 tabs 07/09/23 [Rx Last Taken Unknown] Allergy/AdvReac Type Severity Reaction Status Date / Time shellfish derived Allergy Severe Nausea/Vom/ Verified 10/11/23 08:40 Diarrhea Family History Mother Asthma Cancer basal cell Surgical History History of cholecystectomy History of hernia repair History of wisdom tooth extraction Hx of foot surgery Social History household members: spouse Smoking Status: Never smoker alcohol intake: never substance use type: does not use what type of physical activity do you participate in: bicycling frequency: 1-2 times per week ROS Constitutional Constitutional: Reports systems reviewed and no addt'l complaints, except as documented Eyes Eyes: Reports systems reviewed and no addt'l complaints, except as documented ENT HEENT: Reports systems reviewed and no addt'l complaints, except as documented Cardiovascular Cardiovascular: Reports systems reviewed and no addt'l complaints, except as documented Respiratory/Chest Respiratory/Chest: Reports systems reviewed and no addt'l complaints, except as documented Gastrointestinal Gastrointestinal: Reports systems reviewed and no addt'l complaints, except as documented Genitourinary Genitourinary: Reports systems reviewed and no addt'l complaints, except as documented Musculoskeletal Musculoskeletal: Reports systems reviewed and no addt'l complaints, except as documented Integumentary Integumentary: Reports systems reviewed and no addt'l complaints, except as documented Neurologic Neurologic: Reports systems reviewed and no addt'l complaints, except as documented Psychiatric Psychiatric: Reports systems reviewed and no addt'l complaints, except as documented Endocrine Endocrinology: Reports systems reviewed and no addt'l complaints, except as documented Hematologic/Lymphatic Hematologic/Lymphatic: Reports systems reviewed and no addt'l complaints, exceptas documented Allergic/Immunologic Allergic/Immunologic: Reports systems reviewed and no addt'l complaints, except as documented Vital Signs Vital Signs Vital Signs: 11/16/23 09:33 Temperature 97.8 F Temperature Source Temporal Pulse Rate 107 H Respiratory Rate 16 Blood Pressure 139/93 H Blood Pressure Mean 108 Pulse Ox 98 Oxygen Delivery Method Room Air Weight Weight: 324 lb 3.2 oz Body Mass Index (BMI) 39.4 Physical Exam Const alert, oriented x3 and no apparent distress HEENT normocephalic and head/scalp atraumatic Eyes PERRL and EOMs intact bilaterally Neck full ROM Lymph Lymphatic: no lymphadenopathy noted Chest inspection of chest normal Resp normal respiratory effort and clear to auscultation bilaterally Cardio regular rate and regular rhythm GI GI Narrative: Abdomen- central obesity, soft, tenderness in the right lower quadrant with palpation, hypoactive bowel sounds. Positive McBurney's point and psoas sign. Negative Obturator sign. Nicely healed inferior umbilical incision. no CVA tenderness Back/Spine no CVA tenderness Extremity normal to inspection Skin no rashes or lesions noted Neuro no focal motor deficits and no sensory deficits noted Psych mental status grossly normal and thought process normal Results Lab / Micro Data 11/16/23 10:15 11/16/23 10:15 Labs: Laboratory Results - last 24 hr 11/16/23 10:15: WBC 13.3 H, RBC 4.67, Hgb 14.4, Hct 41.8, MCV 89.5, MCH 30.8, MCHC 34.4, RDW Std Deviation 39.8, RDW Coeff of Geoff 12.2, Plt Count 367, MPV 10.1, Immature Gran % (Auto) 0.400, Neut % (Auto) 85.6 H, Lymph % (Auto) 9.2 L, Candler % (Auto) 4.5, Eos % (Auto) 0.1, Baso % (Auto) 0.2, Absolute Neuts (auto) 11.4 H, Absolute Lymphs (auto) 1.22, Nucleated RBC % 0, Sodium 139, Potassium 3.8, Chloride 108 H, Carbon Dioxide 26.0, Anion Gap 5, BUN 10, Creatinine 1.07, Estim Creat Clear Calc 114.92, Est GFR (MDRD) Af Amer 99, Est GFR (MDRD) Non-Af 82, BUN/Creatinine Ratio 9.3 L, Glucose 115 H, Calcium 8.9, Total Bilirubin 0.70, AST 19, ALT 51, Alkaline Phosphatase 70, Total Protein 7.3, Albumin 3.8, Globulin 3.5, Albumin/Globulin Ratio 1.1, Lipase 28 11/16/23 11:55: Urine Color Straw, Urine Clarity Clear, Urine pH 6.5, Ur Specific [place] 1.010, Urine Protein Negative, Urine Glucose (UA) Normal, UrineKetones Negative, Urine Occult Blood Negative, Urine Nitrite Negative, Urine Bilirubin Negative, Urine Urobilinogen Normal, Ur Leukocyte Esterase Negative, Urine RBC 0 SEEN, Urine WBC 0 SEEN, Ur Squamous Epith Cells 0-5 SEEN, Urine Bacteria 0 SEEN, Urine Mucus 0 SEEN Imagaing Radiology Impression Abdomen/Pelvis CT 11/16/23 09:57 IMPRESSION: 1. Thickening of the appendix with periappendiceal stranding consistent with acute appendicitis. 2. Hepatic steatosis, mild splenomegaly with collateral veins in the splenic hilum which may reflect portal venous hypertension. Electronically Signed: Jr Nation MD at 12:14 EST , ADDENDUM: 11/16/23 1224 IMPRESSION: 1. Thickening of the appendix with periappendiceal stranding consistent with acute appendicitis. 2. Hepatic steatosis, mild splenomegaly with collateral veins in the splenic hilum which may reflect portal venous hypertension. N.B. : The above Results were Read Back by Jr Nation MD to Antonio Ferguson DO, and understanding confirmed on 11/16/2023 12:17:16 (ET). Electronically Signed: Jr Nation MD at 12:14 EST , Assessment & Plan Assessment/Plan (1) Acute appendicitis: QUALIFIERS: Acute appendicitis type: with localized peritonitis Appendicitis gangrene presence: unspecified whether gangrene present Appendicitis perforation presence: unspecified whether perforation present Appendicitis abscess presence: without abscess Qualified Code(s): K35.30 - Acute appendicitis with localized peritonitis, without perforation or gangrene PLAN: I am seeing this patient in conjunction with Dr. Nicloas. CT scan of the ab/pel is demonstrating acute appendicitis. Patient has an elevated white count with a left shift. Dr. Nicolas will plan to perform a laparoscopic appendectomy. Procedure details, risks and benefits have been explained. Plan to admit patientto med/surg floor for observation, STAT EKG pre-op, patient has had a dose of Zosyn in the ED. Plan to send Ancef with the patient to the OR. Patient and his spouse have had the opportunity to ask and have questions answered. Patient verbally understands and agrees with the plan. Thank you for allowing us to participate in this patient's care. Charges/Coding Visit Charges OBSV E&M: 32182 Observ/hosp same date L2 11/16/23 1348 <Electronically signed by Joann SORIANO PA-C> Cosigner Signature (if applicable): CC: XIOMY Cheng; Dr. Drew Mayen MD; Dr. Trinidad Nicolas MD~ Signed ADDENDUM by Dr. Trinidad Nicolas MD on 11/16/23 at 1558 Addendum Patient seen and examined alongside Mrs. Cheng. All agree with her documentation provided in the history and physical above. In short patient is [id number] male presenting with signs and symptoms of acute appendicitis. He does have some pre-existing medical history inclusive of diagnoses such as hypertension and obstructive sleep apnea. Overall these appear to be well-managed. His surgical history involves a cholecystectomy with concurrent herniarepair without mesh. Given patient's workup and exam I have recommended we proceed with surgical appendectomy for definitive management. Procedure was described in detail as well as post procedure expectations. Patient and the spouse expressed agreement with these terms and patient gives his verbal consentto proceed as described. He will be admitted for the interim until we have OR availability to proceed with the case. Since it is likely the case we will not go until later in the day I have shared with Mr. Diop that this would likely mean he is brought in for overnight observation and discharged tomorrow, 11/17/2023. 11/16/23 1558<Electronically signed by Trinidad Nicolas MD> Cosigner Signature (if applicable): cc: XIOMY Cheng; Dr. Drew Mayen MD; Dr. Trinidad Nicolas MD ~* Signed [facility] Work Phone: 1([phone]) 215-143107-03-2023 Progress note Author Miriam Johnson [facility] May 31, 2023 6:12pm Note Date/Time May 31, 2023 6:12p m [facility] Medical Records Department [address] [place] [address] Progress Note - Hospitalist 05/31/23 1802 MR#: [id number] Acct: [id number] Name: RIAZ DIOP Rep #:[id number] : 1985 37 From: Miriam Johnson DO PCP: Dr. Drew Mayen MD Status:A DM IN Location: [facility] [id number] Reason for Visit Reason for Visit: Right lower extremity cellulitis Subjective Subjective Patient is a 37-year-old male who presented to the emergency department on 05/30/2023 with complaint of discomfort in his right groin as well as right lower extremity that started the day prior to presentation. He also had chills and fever with concurrent right lower extremity erythema which began to progressively up his right lower extremity. Tmax at home was 102.9. He also had some general malaise as well as nausea and vomiting. He does have a previous history of right lower extremity cellulitis remotely. Work-up in the emergency department demonstrated mild temperature elevation at 100, heart rate was 122, blood pressure was 129/77, respiratory rate was 24 and oxygen saturation was 100% on room air. CBC showed a leukocytosis with a white count of 19.7 and a left shift. BMP showed mildly elevated BUN and creatinine at 15 and 1.37, serum glucose of 122 and a mildly elevated lactic acid at 2.2. He wasgiven Tylenol in the emergency department as well as Ancef and IV vancomycin. He was admitted to the medical floor where lower extremity Doppler was performedand was negative for DVT. Fever curve seems to be getting better with his Tmax in the last 24 hours at 100.5 which was early this morning. Blood pressure remained stable and slightly elevated and heart rate has improved. The patient states that clinically he is feeling much better today however his right lower extremity is still erythematous. With not much retraction from the outlined areas on presentation. His white count has normalized but he still has a left shift with an 81.6% neutrophilia. His creatinine has normalized with a serum creatinine of 1.14. And clinically he is much improved. Objective Data Objective Data Vital Signs: Vital Signs Temp Pulse Resp BP Pulse Ox O2 Del Method 98.0 F 80 18 149/94 H 96 Room Air 05/31/23 13:00 05/31/23 14:46 05/31/23 13:00 05/31/23 13:00 05/31/23 13:00 05/31/23 13:00 Oxygen Delivery Method Room Air Weight: 148.9 kg Body Mass Index (BMI) 39.9 Intake & Output: Intake and Output for Last 24 Hours 07/01/23 07/02/23 07/03/23 23:59 23:59 23:59 Intake Total 6150.00 / 6150.00 2514 / 2514 Balance 6150.00 / 6150.00 2514 / 2514 Lab / Micro Data 05/31/23 04:15 05/31/23 04:15 Labs: Laboratory Results - last 24 hr 05/31/23 04:15: WBC 9.0, RBC 3.97 L, Hgb 12.7 L, Hct 36.5 L, MCV 91.9, MCH 32.0,MCHC 34.8, RDW Std Deviation 42.9, RDW Coeff of Geoff 12.7, Plt Count 244, MPV 10.5, Immature Gran % (Auto) 0.200, Neut % (Auto) 81.6 H, Lymph % (Auto) 12.0 L,Candler % (Auto) 6.0, Eos % (Auto) 0.0, Baso % (Auto) 0.2, Absolute Neuts (auto) 7.3, Absolute Lymphs (auto) 1.08, Nucleated RBC % 0, Sodium 139, Potassium 3.8, Chloride 112 H, Carbon Dioxide 24.0, Anion Gap 3 L, BUN 8, Creatinine 1.14, Estim Creat Clear Calc 108.92, Est GFR (MDRD) Af Amer 93, Est GFR (MDRD) Non-Af 77, BUN/Creatinine Ratio 7.0 L, Glucose 122 H, Calcium 8.4 L, Vancomycin Trough 13.3 Radiography Diagnostic Testing: Radiology Impression Venous Doppler Study 05/30/23 03:00 Interpretation Summary There is no evidence of right lower extremity deep vein thrombosis. Right great saphenous vein appears patent and compressible segmentally. Right groin 0.77 x 1.1 and 0.86 x 0.93 centimeter structures with vascular flow consistent with lymph nodes. Clinical correlation would be appropriate. Abbreviated COVID-19 protocol utilized Ordering Physician: Suzi Castaneda Performed By: Joseph Rangel RVT Physical Exam Const alert, oriented x3, no apparent distress and well nourished; Negative for average body habitus Constitutional Narrative: Morbidly obese, middle-aged, white male, lying in bed sleeping but awakens easily, appears comfortable nontoxic HEENT head/scalp atraumatic and moist oral mucous membranes HEENT Narrative: Mallampati 3, no thrush Head and Scalp: normocephalic Resp normal respiratory effort, no retractions, no use of accessory muscles and clearto auscultation bilaterally Auscultation: Negative for rales, rhonchi or wheezes Cardio regular rate, regular rhythm, S1 normal heart sound, S2 normal heart sound, no murmurs, no rub, no gallops and no clicks GI normal to inspection, nondistended, normoactive bowel sounds, soft to palpation and non-tender Extremity Extremity Narrative: Right lower extremity with erythema up to the distal thigh, no significant retraction from outlined area on presentation, mild swelling and increased tissue temperature, no clubbing cyanosis, left lower extremities within normal limits Neuro oriented x3, CN's II-XII intact bilaterally, moves all extremities, no focal motor deficits and no sensory deficits noted Speech: speech normal Psych affect normal Psych Narrative: Pleasant, appropriately interactive Assessment & Plan Assessment/Plan (1) Cellulitis: (2) Leukocytosis: (3) Sepsis: PLAN: Plan Sepsis secondary to right lower extremity cellulitis -Patient presented with tachycardia, tachypnea, fever, lactic acidosis and IFTIKHAR -Sepsis appears to be resolving and fever curve improving -Continue broad-spectrum antibiotics -Await cultures--> blood cultures are still pending IFTIKHAR -Baseline serum creatinine is 1.0 -Current serum creatinine is 1.1 -Serum creatinine admission was 1.37 -Continue to monitor and avoid nephrotoxins History of chronic anemia with iron deficiency -Hemoglobin stable -Continue home oral supplementations next-repeat CBC in a.m. 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 -Biopsy 2020 that showed melanoma with negative PET -Status post resection with skin grafting 02/10/2022 -Patient now following with dermatology DORENE -Continue home CPAP Morbid obesity -BMI 40.0 -Recommend weight loss -Complicates treatment, prognosis, outcomes DVT prophylaxis -Continue Lovenox CODE STATUS -Full code Charges/Coding Visit Charges Inpatient E&M: 82883 Subs Hosp L2 05/31/231811 <Electronically signed by Miriam Johnson DO> Cosigner Signature (if applicable): CC: ~ Signed [facility] Work Phone: [phone]) [phone] Consult note Author Sabina Flowers [facility] May 31, 2023 5:17am Note Date/Time May 31, 2023 5:17a m [facility] Medical Records Department [address] [facility] [place] [address] Pharmacokinetic/Renal -Consult 05/31/23 0517 MR#: [id number] Acct: [id number] Name: RIAZ DIOP Rep #:[id number] : 1985 37 From: Sabina Flowers PCP: Dr. Drew Mayen MD Status:A DM IN Y Location: [place] [address] Consult Antibiotic Management Pharmacy has been consulted to manage selected antiobiotic: Vancomycin Type of Intervention Type of Consult: Follow-up Labs Labs: Sodium 139 mmol/L (136-145) 05/30/23 05:20 Potassium 3.9 mmol/L (3.5-5.1) 05/30/23 05:20 Chloride 108 mmol/L (98-107) H 05/30/23 05:20 Carbon Dioxide 25.0 mmol/L (21.0-32.0) 05/30/23 05:20 Anion Gap 6 (5-15) 05/30/23 05:20 BUN 15 mg/dL (7-18) 05/30/23 05:20 Creatinine 1.38 mg/dL (0.70-1.30) H 05/30/23 05:20 Est GFR (MDRD) Af Amer 74 mL/min (>60) 05/30/23 05:20 Est GFR (MDRD) Non-Af 61 mL/min (>60) 05/30/23 05:20 BUN/Creatinine Ratio 10.9 RATIO (10-20) 05/30/23 05:20 Glucose 146 mg/dL (74-106) H 05/30/23 05:20 Vancomycin Trough 13.3 ug/mL (5.0-15.0) 05/31/23 04:15 Goal Trough Goal Trough: 15-20 mcg/mL Pharmacy Plan for Drug Dosing Pharmacy Plan for Drug Dosing: VANCOMYCIN LEVEL RECEIVED Current Vancomycin Dose: 1500MG IV Q8H Number of Doses Received: 3 Vancomycin Level: 13.3 Hours Since Last Dose: 7HR Renal Function: 1.38 Renal Function Trend: NNL TODAY Lab/Micro: Pending Vancomycin Plan/Comments: Patient had a trough drawn which resulted in a value of 13.3 (goal 15-20). Although pt is slightly subtherapeutic, there was a 12hr gap from loading dose to first scheduled dose, which could explain a lower trough. Patient is already on Q8h dosing, am hesitant to increase dose as troughis almost therapeutic, and per EMR review, patient has not gotten worse. Will continue current dose of 1500mg IV Q8h and recheck a trough in 24hr to assess dosing at that time Pending Level: 06/01/23 @0430 Pharmacy Service will continue to monitor and adjust dosing as required. 05/31/23 0517 <Electronically signed by Sabina Flowers > Date _ Sabina Flowers Cosigner Signature (if applicable): Date CC: ~ Signed [facility] Work Phone: 1(984) 660-943607-02-2023 Progress note Author Gatito Chase [facility] May 30, 2023 6:49pm Note Date/Time May 30, 2023 6:49p bart [facility] Medical Records Department [address] [place] [address] Progress Note - Hospitalist 05/30/23 1845 MR#: [id number] Acct: [id number] Name: RIAZ DIOP Rep #:[id number] : 1985 37 From: Gatito Chase DO PCP: Dr. Drew Mayen MD Status:A DM IN Location: [place] [id number] Reason for Visit Reason for Visit: Diagnoses Cellulitis, unspecified (05/30/23) Subjective Subjective Patient was seen and examined today, his right leg was negative for DVT, his right leg is still reddened, his white blood cell count is 17.5 today. Patient's temperature today at 320 was 101.2. Patient was diaphoretic this afternoon but not extremely uncomfortable. Objective Data Objective Data Vital Signs: Vital Signs Temp Pulse Resp BP Pulse Ox O2 Del Method 101.2 F H 107 H 16 136/66 H 98 Room Air 05/30/23 15:20 05/30/23 15:20 05/30/23 15:20 05/30/23 15:20 05/30/23 15:20 05/30/23 15:20 Oxygen Delivery Method Room Air Weight: 146.7 kg Body Mass Index (BMI) 39.3 Intake & Output: Intake and Output for Last 24 Hours 05/28/23 05/29/23 05/30/23 23:59 23:59 23:59 Intake Total 4206.67 / 4206.67 Balance 4206.67 / 4206.67 Lab / Micro Data 05/30/23 05:20 05/30/23 05:20 Labs: Laboratory Results - last 24 hr 05/29/23 00:05: WBC 19.7 H, RBC 4.43 L, Hgb 13.9, Hct 40.0, MCV 90.3, MCH 31.4, MCHC 34.8, RDW Std Deviation 40.3, RDW Coeff of Geoff 12.2, Plt Count 294, MPV 10.0, Immature Gran % (Auto) 0.600, Neut % (Auto) 92.0 H, Lymph % (Auto) 2.5 L, Candler % (Auto) 4.6, Eos % (Auto) 0.0, Baso % (Auto) 0.3, Absolute Neuts (auto) 18.1 H, Absolute Lymphs (auto) 0.50 L, Nucleated RBC % 0 05/29/23 03:35: WBC Cancelled, Corrected WBC Cancelled, RBC Cancelled, Hgb Cancelled, Hct Cancelled, MCV Cancelled, MCH Cancelled, MCHC Cancelled, RDW Std Deviation Cancelled, RDW Coeff of Geoff Cancelled, Plt Count Cancelled, MPV Cancelled, Immature Gran % (Auto) Cancelled, Neut % (Auto) Cancelled, Lymph % (Auto) Cancelled, Candler % (Auto) Cancelled, Eos % (Auto) Cancelled, Baso % (Auto) Cancelled, Absolute Neuts (auto) Cancelled, Absolute Lymphs (auto) Cancelled, Total Counted Cancelled, Neutrophils % (Manual) Cancelled, Band Neutrophils % Cancelled, Lymphocytes % (Manual) Cancelled, Monocytes % (Manual) Cancelled, Eosinophils % (Manual) Cancelled, Basophils % (Manual) Cancelled, Metamyelocytes% Cancelled, Myelocytes % Cancelled, Promyelocytes % Cancelled, Blast Cells % Cancelled, Plasma Cell % (Manual) Cancelled, Other Cells % Cancelled, Nucleated RBC % Cancelled, Nucleated RBCs/100 WBC Cancelled, Differential Comment Cancelled, Diff Path Review Cancelled, Hypersegmented Neuts Cancelled, Atypical Lymphocytes Cancelled, Reactive Lymphocytes Cancelled, Smudge Cells Cancelled, Toxic Granulation Cancelled, Toxic Vacuolation Cancelled, Dohle Bodies Cancelled, Binh Rods Cancelled, Platelet Estimate Cancelled, Plt Morphology Comment Cancelled, RBC Morphology Cancelled 05/29/23 03:35: RBC Morphology Cancelled, Polychromasia Cancelled, HypochromasiaCancelled, Poikilocytosis Cancelled, Basophilic Stippling Cancelled, Anisocytosis Cancelled, Microcytosis Cancelled, Macrocytosis Cancelled, Spherocytes Cancelled, Sickle Cells Cancelled, Target Cells Cancelled, Tear DropCells Cancelled, Ovalocytes Cancelled, Stomatocytes Cancelled, Marshall-[place] Bodies Cancelled, Echo Cells Cancelled, Bite Cells Cancelled, Crenated Cell Cancelled, Acanthocytes (Spur) Cancelled, Rouleaux Cancelled, Schistocytes Cancelled, Sodium 135 L, Potassium 4.1, Chloride 106, Carbon Dioxide 21.0, AnionGap 8, BUN 15, Creatinine 1.37 H, Estim Creat Clear Calc 90.64, Est GFR (MDRD) Af Amer 75, Est GFR (MDRD) Non-Af 62, BUN/Creatinine Ratio 10.9, Glucose 122 H, Lactic Acid 2.2 H*, Calcium 9.3 05/30/23 04:10: Lactic Acid 1.7 05/30/23 05:20: WBC 17.5 H, RBC 4.30 L, Hgb 13.9, Hct 39.2 L, MCV 91.2, MCH 32.3H, MCHC 35.5, RDW Std Deviation 41.7, RDW Coeff of Geoff 12.6, Plt Count 269, MPV 10.0, Immature Gran % (Auto) 0.700, Neut % (Auto) 91.1 H, Lymph % (Auto) 4.4 L, Candler % (Auto) 3.6, Eos % (Auto) 0.0, Baso % (Auto) 0.2, Absolute Neuts (auto) 15.9 H, Absolute Lymphs (auto) 0.77 L, Nucleated RBC % 0, Sodium 139, Potassium 3.9, Chloride 108 H, Carbon Dioxide 25.0, Anion Gap 6, BUN 15, Creatinine 1.38 H, Estim Creat Clear Calc 89.98, Est GFR (MDRD) Af Amer 74, Est GFR (MDRD) Non-Af61, BUN/Creatinine Ratio 10.9, Glucose 146 H, Calcium 8.4 L, Total Bilirubin 1.30 H, AST 20, ALT 52, Alkaline Phosphatase 60, Total Protein 6.7, Albumin 3.5,Globulin 3.2, Albumin/Globulin Ratio 1.1 05/30/23 07:55: Procalcitonin 1.28 H Physical Exam Const alert, oriented x3, no apparent distress and healthy appearing General Appearance: cooperative, well kempt and well developed Orientation / Consciousness: awake, oriented to person, oriented to place and oriented to time HEENT normocephalic, head/scalp atraumatic and moist oral mucous membranes Eyes PERRL, EOMs intact bilaterally and conjunctivae normal Neck supple, no JVD, thyroid normal and no carotid bruits General: trachea midline Resp normal respiratory effort, no retractions, no use of accessory muscles and clearto auscultation bilaterally Auscultation: Negative for rales, rhonchi or wheezes Cardio regular rate, regular rhythm, S1 normal heart sound, S2 normal heart sound, no murmurs, no rub and no gallops GI normal to inspection, nondistended, normoactive bowel sounds, soft to palpation,non-tender and non-distended Extremity Extremity Narrative: Patient's right leg is edematous and reddened particularly over the medial aspect of the right lower leg extending into the right proximal thigh area. This area is also warm to the touch and mildly tender. Skin General Skin Exam: no breakdown Trauma: no lacerations or abrasions Neuro oriented x3, CN's II-XII intact bilaterally, no focal motor deficits and no sensory deficits noted Sensorium / Orientation: awake and alert Speech: speech normal Psych affect normal Assessment & Plan Assessment/Plan (1) Cellulitis: PLAN: Plan 1. Acute sepsis secondary to acute right lower extremity cellulitis-continue present antibiotic coverage, monitor labs #2 essential hypertension-patient's diuretics were held at this time, he has been placed on as needed hydralazine #3 chronic iron deficiency anemia-stable at this time #4 obstructive sleep apnea-patient is using his CPAP #5 recurrent cellulitis of the right leg-organism unknown at this time, continuepresent antibiotic coverage Total clinical time spent by myself addressing the patient's medical issues, reviewing all of his data, and collaborating with patient's care team: 35 minutes 05/30/238 <Electronically signed by Gatito Chase DO> Cosigner Signature (if applicable): CC: ~ Signed [facility] Work Phone: [phone] 665-963307-02-2023 Discharge summary Author Antonio Ferguson [facility] May 30, 2023 8:51am Note Date/Time May 29, 2023 11:15 pm [facility] Medical Records Department [address] [place] [address] Emergency Department Summary 05/29/23 MR#: [id number] Acct: [id number] Name: RIAZ DIOP Rep #:[id number] : 1985 37 From: Antonio Sanchez PCP: Dr. Drew Mayen MD Status:A DM IN Location: [address] History of Present Illness Chief Complaint: Cellulitis Informant: patient Onset/Context/Timing Onset: Today Context: Sudden Onset Timing: Continuous Quality: Aching, warm Location: Right leg Worsened by: Laying on his leg Relieved by: Nothing Narrative Narrative: Patient presents with cellulitis to his right leg that began today. Patient states he noted some pain in his groin and right lower leg earlier today. Patient states that he developed some chills and a fever after that. Patient states his fever was up to 102.9 at home. Patient states he was having some general myalgias, back pain, and neck pain. Patient was having some nausea and vomiting. Patient states he also felt somewhat short of breath. Patient stateshis pain is worse when he lays on his leg. Patient denies any paresthesias or weakness. [facility] Medical History (Updated 05/30/23 @ 02:[address] Antonio Ferguson DO) Asthma Congenital absence of left kidney Discoloration of skin Elevated random blood glucose level Fatty infiltration of liver Gallstones Hypersomnolence Hypertension (Unknown) TARAS (iron deficiency anemia) Localized swelling of right foot Melanoma Obesity (BMI 30-39.9) DORENE (obstructive sleep apnea) Rash Shortness of breath Shoulder pain Sleep apnea Venous insufficiency of both lower extremities Home Medications loratadine 10 mg capsule 10 mg PO DAILY 02/13/21 [History Last Taken Unknown] ferrous sulfate 325 mg (65 mg iron) tablet 325 mg PO BID #60 tabs 11/24/22 [Rx Last Taken Unknown] triamterene 37.5 mg-hydrochlorothiazide 25 mg tablet 1 tab PO QAM #30 tabs 03/08/23 [Rx Last Taken Unknown] Allergy/AdvReac Type Severity Reaction Status Date / Time shellfish derived Allergy Severe Unknown Verified 05/29/23 22:14 Family History Mother Asthma Cancer basal cell Surgical History (Updated 05/29/23 @ 23:[address] Antonio Ferguson DO) History of cholecystectomy History of hernia repair History of wisdom tooth extraction Hx of foot surgery Social History household members: spouse Smoking Status: Never smoker alcohol intake: never substance use type: does not use what type of physical activity do you participate in: bicycling frequency: 1-2 times per week ROS ROS ED Constitutional Constitutional ED: Reports chills and fever(s) Eyes Eyes: Denies blurry vision or change in vision ENT ENT ED: Denies rhinorrhea or sore throat Cardiovascular Cardiovascular: Denies chest pain or palpitations Respiratory/Chest Respiratory/Chest: Reports dyspnea; Denies cough Gastrointestinal Gastrointestinal: Reports nausea and vomiting Genitourinary Genitourinary ED: Denies dysuria or hematuria Musculoskeletal Musculoskeletal: Reports back pain, myalgias and neck pain Integumentary Reports rash; Denies abscess Neurologic Neurologic: Denies headache(s) or weakness Allergic/Immunologic Allergic/Immunologic ED: Denies mouth swelling or urticaria EXAM Physical Exam Const Vital Signs: 05/29/23 22:14 05/29/23 22:12 Temperature 100 F H Temperature Source Oral Pulse Rate 122 H 112 H Respiratory Rate 24 H Blood Pressure 129/77 H Blood Pressure Mean 94 Pulse Ox 100 Positive well nourished and well developed General Appearance ED: well developed and NAD HEENT Reports moist mucous membranes Neck supple and no JVD Resp normal respiratory effort and clear to auscultation bilaterally Cardio regular rate, regular rhythm and no murmurs GI normal to inspection, nondistended, normoactive bowel sounds and non-tender Palpation: soft Extremity Extremity Narrative: There is tenderness, erythema, and warmth over the medial aspect of the right lower leg up to the knee. There is no abscess. There are some insect bites noted over the lower leg. There is no discharge or drainage. There is full range of motion. General Extremety ED: Yes tenderness Neuro oriented x3, CN's II-XII intact bilaterally and no sensory deficits noted Sensorium / Orientation: alert Motor Exam: strength 5/5 throughout Psych mental status grossly normal Skin no rashes or lesions noted MDM MDM MDM Narrative Medical decision making narrative: Differential diagnosis includes cellulitis, and sepsis. CBC will be obtained toassess for leukocytosis and anemia. Basic metabolic profile will be obtained toassess for electrolyte abnormality and renal function. Blood cultures will be obtained to assess for sepsis. Lactate will be obtained to assess for sepsis. Lab Data Attestation: I reviewed the patient's lab results. Lab results narrative: CBC was reviewed. There is a leukocytosis of 19.7. Absolute neutrophil count was elevated 18.1. Basic metabolic profile was reviewed. Creatinine was slightly elevated at 1.37. Glucose was 122. The remainder was within normal limits. Lactic acid was reviewed and was slightly elevated at 2.2. Labs: Laboratory Results - last 24 hr 05/29/23 05/29/23 05/29/23 00:05 03:35 03:35 WBC 19.7 H Cancelled Corrected WBC Cancelled RBC 4.43 L Cancelled Hgb 13.9 Cancelled Hct 40.0 Cancelled MCV 90.3 Cancelled MCH 31.4 Cancelled MCHC 34.8 Cancelled RDW Std Deviation 40.3 Cancelled RDW Coeff of Geoff 12.2 Cancelled Plt Count 294 Cancelled MPV 10.0 Cancelled Immature Gran % (Auto) 0.600 Cancelled Neut % (Auto) 92.0 H Cancelled Lymph % (Auto) 2.5 L Cancelled Candler % (Auto) 4.6 Cancelled Eos % (Auto) 0.0 Cancelled Baso % (Auto) 0.3 Cancelled Absolute Neuts (auto) 18.1 H Cancelled Absolute Lymphs (auto) 0.50 L Cancelled Total Counted Cancelled Neutrophils % (Manual) Cancelled Band Neutrophils % Cancelled Lymphocytes % (Manual) Cancelled Monocytes % (Manual) Cancelled Eosinophils % (Manual) Cancelled Basophils % (Manual) Cancelled Metamyelocytes % Cancelled Myelocytes % Cancelled Promyelocytes % Cancelled Blast Cells % Cancelled Plasma Cell % (Manual) Cancelled Other Cells % Cancelled Nucleated RBC % 0 Cancelled Nucleated RBCs/100 WBC Cancelled Differential Comment Cancelled Diff Path Review Cancelled Hypersegmented Neuts Cancelled Atypical Lymphocytes Cancelled Reactive Lymphocytes Cancelled Smudge Cells Cancelled Toxic Granulation Cancelled Toxic Vacuolation Cancelled Dohle Bodies Cancelled Binh Rods Cancelled Platelet Estimate Cancelled Plt Morphology Comment Cancelled RBC Morphology Cancelled Cancelled Polychromasia Cancelled Hypochromasia Cancelled Poikilocytosis Cancelled Basophilic Stippling Cancelled Anisocytosis Cancelled Microcytosis Cancelled Macrocytosis Cancelled Spherocytes Cancelled Sickle Cells Cancelled Target Cells Cancelled Tear Drop Cells Cancelled Ovalocytes Cancelled Stomatocytes Cancelled Marshall-Soldot[place] Bodies Cancelled Danny Cells Cancelled Bite Cells Cancelled Crenated Cell Cancelled Acanthocytes (Spur) Cancelled Rouleaux Cancelled Schistocytes Cancelled Sodium 135 L Potassium 4.1 Chloride 106 Carbon Dioxide 21.0 Anion Gap 8 BUN 15 Creatinine 1.37 H Estim Creat Clear Calc 90.64 Est GFR (MDRD) Af Amer 75 Est GFR (MDRD) Non-Af 62 BUN/Creatinine Ratio 10.9 Glucose 122 H Lactic Acid 2.2 H* Calcium 9.3 Treatment and Re-Evaluation :: Blood cultures were obtained. Patient was given a dose of Ancef. Because of the leukocytosis and lactic acidosis, vancomycin was added. Patient was advisedof his results. Case was discussed with the hospitalist. She will admit the patient to PCU. Patient and spouse understand and are agreeable with the plan. All questions were answered. Discharge Plan Dx/Rx/DC Orders Clinical Impression: Cellulitis of leg, right, Leukocytosis Disposition Disposition: [facility] Care [facility] What to do if you have Problems For any increased pain, shortness of breath, bleeding, nausea or vomiting, chestpain, or any unexpected problems, contact your Primary Care Provider. Call [facility] ([phone]) or report to the closest Emergency Room. Call 911 if necessary. 05/30/23 0851 <Electronically signed by Antonio Ferguson DO> Cosigner Signature (if applicable): CC: Dr. Drew Mayen MD ~ Signed [facility] Work Phone: [phone]) 754-619207-02-2023 Consult note Author [facility] May 30, 2023 5:28am Note Date/Time May 30, 2023 5:28a [facility] Medical Records Department [address] [place] [address] Pharmacokinetic/Renal -Consult 05/30/23 0527 MR#: [id number] Acct: [id number] Name: RIAZ DIOP Rep #:[id number] : 1985 37 From: Sabina Flowers PCP: Dr. Drew Mayen MD Status:A DM IN Y Location: [place] [id number] Consult Antibiotic Management Pharmacy has been consulted to manage selected antiobiotic: Vancomycin Type of Intervention Type of Consult: New start Suspected Infection Suspected Infection: Sepsis and Skin/Soft tissue Labs Labs: Sodium 135 mmol/L (136-145) L 05/29/23 03:35 Potassium 4.1 mmol/L (3.5-5.1) 05/29/23 03:35 Chloride 106 mmol/L (98-107) 05/29/23 03:35 Carbon Dioxide 21.0 mmol/L (21.0-32.0) 05/29/23 03:35 Anion Gap 8 (5-15) 05/29/23 03:35 BUN 15 mg/dL (7-18) 05/29/23 03:35 Creatinine 1.37 mg/dL (0.70-1.30) H 05/29/23 03:35 Est GFR (MDRD) Af Amer 75 mL/min (>60) 05/29/23 03:35 Est GFR (MDRD) Non-Af 62 mL/min (>60) 05/29/23 03:35 BUN/Creatinine Ratio 10.9 RATIO (10-20) 05/29/23 03:35 Glucose 122 mg/dL (74-106) H 05/29/23 03:35 Goal Trough Goal Trough: 15-20 mcg/mL Pharmacy Plan for Drug Dosing Pharmacy Plan for Drug Dosing: NEW START IV VANCOMYCIN Consulting Physician: Dr. Castaneda Indication: SSTI Goal Trough: 15-20 SrCr: 1.37 CrCl: 115 Ml/min (using AdjBW) Comments: Loading dose 2000mg IV x1 ordered and administered in ED 05/30/23 @0224 Vancomycin Dose: 1500mg IV Q8hr to start 05/30/23 @1000 Pending Level: 05/31/23 @0130, prior to 4th total dose per protocol Pharmacy Service will continue to monitor and adjust dosing as required. 05/30/23 0528 <Electronically signed by Sabina Flowers > Date _ Sabina Flowers Cosigner Signature (if applicable): Date CC: ~ Signed [facility] Work Phone: [phone] History and physical note Author Suzi Castaneda [facility] May 30, 2023 4:40am Note Date/Time May 30, 2023 2:58a [facility] Medical Records Department [address] [place] [address] H&P Exam - Hospitalist 05/30/23 0255 MR#: [id number] Acct: [id number] Name: RIAZ DIOP Rep #:[id number] : 1985 37 From: Suzi Castaneda MD PCP: Dr. Drew Mayen MD Status:A DM IN Location: [place] [address] HPI - General General Date of Admission: 05/30/23 Date of Service: 05/30/23 Chief Complaint: RLE pain, redness, fever. 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 He notes the pain is worse in the right lower extremity if he is laying on it. He notes it appearsless red and involves less of the leg than his prior cellulitic presentation butthis time he notes it came on more severely with fever, chills and N/V. Work-up in the ED included T100, heart rate 122, BP 129/77, respiratory rate 24, 100% onroom air, 05/29/2023 CBC obtained earlier in the day with WBC 19.7, hemoglobin 13.9, platelet 294 with significant left shift and BMP with sodium 135, BUN/creatinine 15/1.37, glucose 122, lactic acid mildly elevated 2.2. In the EDpatient administered Tylenol 1000 mg p.o. x1 as well as Ancef and IV vancomycin. [facility] Medical History Asthma Congenital absence of left kidney Discoloration of skin Elevated random blood glucose level Fatty infiltration of liver Gallstones Hypersomnolence Hypertension (Unknown) TARAS (iron deficiency anemia) Localized swelling of right foot Melanoma Obesity (BMI 30-39.9) DORENE (obstructive sleep apnea) Rash Shortness of breath Shoulder pain Sleep apnea Venous insufficiency of both lower extremities Home Medications loratadine 10 mg capsule 10 mg PO DAILY 02/13/21 [History Last Taken Unknown] ferrous sulfate 325 mg (65 mg iron) tablet 325 mg PO BID #60 tabs 11/24/22 [Rx Last Taken Unknown] triamterene 37.5 mg-hydrochlorothiazide 25 mg tablet 1 tab PO QAM #30 tabs 03/08/23 [Rx Last Taken Unknown] mecobalamin (vitamin B12) 1,000 mcg chewable tablet (B12 Active) 1,000 mcg PO DAILY 05/30/23 [History Last Taken Unknown] Allergy/AdvReac Type Severity Reaction Status Date / Time shellfish derived Allergy Severe Unknown Verified 05/29/23 22:14 Family History Mother Asthma Cancer basal cell Family History other other (No marked paternal family history including HD, DM, CA.) Surgical History History of cholecystectomy History of hernia repair History of wisdom tooth extraction Hx of foot surgery Social History household members: spouse Smoking Status: Never smoker alcohol intake: never substance use type: does not use what type of physical activity do you participate in: bicycling frequency: 1-2 times per week ROS ROS Narrative Admission Review of Systems: CONSTITUTIONAL: No weight loss, + fever, chills, weakness or fatigue. HEENT: Eyes: No visual loss, blurred vision, double vision or yellow sclerae. Ears, Nose, Throat: No hearing loss, sneezing, congestion, runny nose or sore throat. SKIN: + RLE redness, pain. CARDIOVASCULAR: + Mild lightheadedness. No chest pain, chest pressure or chest discomfort, palpitations, edema, orthopnea, syncopal events. RESPIRATORY: No shortness of breath, cough or sputum, wheezing, hemoptysis. GASTROINTESTINAL: + anorexia, nausea, vomiting, No diarrhea, abdominal pain, melena, BRBPR. GENITOURINARY: No dysuria, frequency, urgency or retention. NEUROLOGICAL: + Mild lightheadedness. No headache, dizziness, syncope, paralysis, ataxia, numbness or tingling in the extremities, focal weakness, change in bowel or bladder control, seizure. MUSCULOSKELETAL: + muscle, back pain, joint pain or stiffness. HEMATOLOGIC: + anemia, bleeding or bruising. LYMPHATICS: No enlarged nodes. No history of splenectomy. PSYCHIATRIC: No history of depression or anxiety. ENDOCRINOLOGIC: No reports of sweating, cold or heat intolerance. No polyuria orpolydipsia. ALLERGIES: + history of asthma, rhinitis. Vital Signs Vital Signs Vital Signs: 05/29/23 22:14 05/29/23 22:12 Temperature 100 F H Temperature Source Oral Pulse Rate 122 H 112 H Respiratory Rate 24 H Blood Pressure 129/77 H Blood Pressure Mean 94 Pulse Ox 100 Weight Weight: 322 lb 12.8 oz Body Mass Index (BMI) 39.2 Physical Exam Narrative Physical Examination: General: Awake, alert, oriented x 3 and cooperative, seated upright in the ED bed, fatigued appearing otherwise no acute distress. Skin: Normal color, normal turgor, no icterus, no cyanosis except for noted well-healed skin grafting to the right plantar medial foot as well as erythema from the R ankle to the knee region, warm to touch, mild edema compared to LLE (acute on chronic). HEENT: AT/NC, EOMI, PERRLA, mildly dry MM, no carotid bruits or JVD noted. Lungs: CTA bilaterally, moderate effort, mild decrease BL bases, mildly increased RR, no rales, ronchi or wheezing. Heart: Notable tachycardia with regular rhythm; no gallop, rub audible. Abdomen: Soft, obese, NTTP, ND, mildly hyperactive BS, no HSM. Extremities: No cyanosis, no clubbing, see skin. Neurological: Patient awake, alert, oriented as noted, cognitive function intact; pupils equally reactive to light and accommodation, cranial nerves grossly normal, moving all 4 extremities, no focal deficits, strength mildly to moderately decreased secondary to acute presentation complaints. Psychiatric: Affect appears fatigued, no acute evidence of depressive or anxietyfeelings. Results Lab / Micro Data 05/29/23 00:05 05/29/23 03:35 Labs: Laboratory Results - last 24 hr 05/29/23 00:05: WBC 19.7 H, RBC 4.43 L, Hgb 13.9, Hct 40.0, MCV 90.3, MCH 31.4, MCHC 34.8, RDW Std Deviation 40.3, RDW Coeff of Geoff 12.2, Plt Count 294, MPV 10.0, Immature Gran % (Auto) 0.600, Neut % (Auto) 92.0 H, Lymph % (Auto) 2.5 L, Candler % (Auto) 4.6, Eos % (Auto) 0.0, Baso % (Auto) 0.3, Absolute Neuts (auto) 18.1 H, Absolute Lymphs (auto) 0.50 L, Nucleated RBC % 0 05/29/23 03:35: WBC Cancelled, Corrected WBC Cancelled, RBC Cancelled, Hgb Cancelled, Hct Cancelled, MCV Cancelled, MCH Cancelled, MCHC Cancelled, RDW Std Deviation Cancelled, RDW Coeff of Geoff Cancelled, Plt Count Cancelled, MPV Cancelled, Immature Gran % (Auto) Cancelled, Neut % (Auto) Cancelled, Lymph % (Auto) Cancelled, Candler % (Auto) Cancelled, Eos % (Auto) Cancelled, Baso % (Auto)Cancelled, Absolute Neuts (auto) Cancelled, Absolute Lymphs (auto) Cancelled, Total Counted Cancelled, Neutrophils % (Manual) Cancelled, Band Neutrophils % Cancelled, Lymphocytes % (Manual) Cancelled, Monocytes % (Manual) Cancelled, Eosinophils % (Manual) Cancelled, Basophils % (Manual) Cancelled, Metamyelocytes% Cancelled, Myelocytes % Cancelled, Promyelocytes % Cancelled, Blast Cells % Cancelled, Plasma Cell % (Manual) Cancelled, Other Cells % Cancelled, Nucleated RBC % Cancelled, Nucleated RBCs/100 WBC Cancelled, Differential Comment Cancelled, Diff Path Review Cancelled, Hypersegmented Neuts Cancelled, Atypical Lymphocytes Cancelled, Reactive Lymphocytes Cancelled, Smudge Cells Cancelled, Toxic Granulation Cancelled, Toxic Vacuolation Cancelled, Dohle Bodies Cancelled, Binh Rods Cancelled, Platelet Estimate Cancelled, Plt Morphology Comment Cancelled, RBC Morphology Cancelled 05/29/23 03:35: RBC Morphology Cancelled, Polychromasia Cancelled, HypochromasiaCancelled, Poikilocytosis Cancelled, Basophilic Stippling Cancelled, Anisocytosis Cancelled, Microcytosis Cancelled, Macrocytosis Cancelled, Spherocytes Cancelled, Sickle Cells Cancelled, Target Cells Cancelled, Tear Drop Cells Cancelled, Ovalocytes Cancelled, Stomatocytes Cancelled, Marshall-[place] Bodies Cancelled, Echo Cells Cancelled, Bite Cells Cancelled, Crenated Cell Cancelled, Acanthocytes (Spur) Cancelled, Rouleaux Cancelled, Schistocytes Cancelled, Sodium 135 L, Potassium 4.1, Chloride 106, Carbon Dioxide 21.0, Anion Gap 8, BUN 15, Creatinine 1.37 H, Estim Creat Clear Calc 90.64, Est GFR (MDRD) Af Amer 75, Est GFR (MDRD) Non-Af 62, BUN/Creatinine Ratio 10.9, Glucose 122 H, Lactic Acid 2.2 H*, Calcium 9.3 Assessment & Plan Assessment/Plan (1) Cellulitis: PLAN: Plan The patient is a 37 y/o M w/ PMHx: 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 Jackson, Obesity, Asthma w/ allergic rhinitis, DORENE, HTN who presents to the [facility] ED on 05/30/2023 with history of onset of discomfort to his right groin as well as rightlower extremity starting earlier in the day the day prior to presentation with onset of chills as well as a fever following and concurrently erythema which began to progress up his right lower extremity with reported fever at home 102.9with also some generalized malaise as well as nausea and emesis with concurrent right lower extremity pain prompting eventual ED evaluation. #1. Acute Sepsis secondary to Acute Right Lower Extremity Cellulitis (tachycardia, tachypnea, febrile with source and lactic acidosis as well as renal insufficiency): Will admit to [facility], and severity of presentation with fever,tachycardia, tachypnea and significant leukocytosis will place on IV vancomycin and IV Zosyn per cellulitis order set with de-escalation as able, plan repeat CBC in AM, continue affected extremity elevation above heart when seated and in bed, monitor erythema outline with VS checks, will obtain duplex ultrasound to be cautious, PRN pain/antiemetic regimen. #2. Mild acute renal insufficiency: Likely secondary to acute presentation #1: Admission BUN/creatinine 15/1.37, baseline creatinine primarily 1.0-1.1 max, will continue to trend CMP. #3. Melanocytic nevus: Patient following w/ Dr. Jackson, nevus on the sole of R foot since , biopsy done on 10/17/2021 which showed Melanoma with PET/CT on11/18/2021 was negative. 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 Now patient is only following w/ Dermatology, awaiting visit, recommended Dr. Estuardo Acosta. #4. Chronic asthma with allergic rhinitis: Not on any chronic inhalers, PRN albuterol, continue patient home loratadine. #5. Obesity: Weight loss and lifestyle changes encouraged. #6. Hypertension: Judiciously hydrating given presentation, mild renal insufficiency as noted, will temporally hold patient diuretic regimen and in theinterim placed on PRN hydralazine. #7. Chronic anemia/Fe deficiency: Admission Hgb 13.9, stable, improved, continue Fe supplementation and CBC trending. #8. DORENE: CPAP nightly. #9. DVT prophylaxis: Lovenox. #10. CODE STATUS: Full code. Admission Evaluation Time spent evaluating chart, patient history, patient evaluation, care planning and discussion with specialists: 60 minutes. Charges/Coding Visit Charges Inpatient E&M: 56008 Init Hosp L2 05/30/23 0440 <Electronically signed by Suzi Castaneda MD> Cosigner Signature (if applicable): CC: Dr. Suzi Castaneda MD; Dr. Drew Mayen MD~ Signed [facility] Work Phone: [phone]) 687-800712-27-2022 Hospital Discharge instructions Additional Instructions Contact your family physician if your right leg has increased redness or swelling You will need follow-up concerning your iron deficiency anemia Date of Discharge: 11/24/22[facility] Work Phone: 1(387) 421-304706-01-2022 History of Present illness Narrative* Shirley Lara LPN - 04/29/2022 8:00 AM EDT Patient here today for check on right foot graft. Patient reports swelling improved. Does have one area that feels like its tight and pulls some when patient is walking. Patient is currently just doing Vaseline and kathy gauze. Patient denies drainage. * Liya Alcazar PA-C - 04/29/2022 8:00 AM EDT Patient seen and examined by [facility] and [...] the day the discomfort eases. Feels that everyday he gets a little better and better. [...] concerns A total of 10 minutes of vtrk-ye-lqrx time were spent with the patient, of which >50% were spenton counseling and coordination of care. [facility] History of Present illness Narrative* Shirley Lara LPN - 03/18/2022 8:00 AM EDT Patient here today for post op appt. Patient with no concerns. Patient only using Vaseline to wound, no drainage on dressing. Patient with no complaints. * Trinidad Weems MD - 03/18/2022 8:00 AM EDT Reason for Visit Riaz Diop is a [...] as he is making significant progress on hisown. Will plan to reevaluate at his next visit. - Follow up in 4-6 weeks [facility] History of Present illness Narrative* Shirley Lara LPN - 02/04/2022 11:45 AM EST Plastic Surgery Post-op Riaz Diop ([id number]) 36 y.o. male presenting for a post-op visit. Vitals: Smoking Status Never Smoker Estimated body mass index is 36.71 kg/m as calculated from the following: Height as of 01/23/22: 1.93 m (6' 4"). Weight as of 01/23/22: 136.8 kg (301 lb 9.6 oz). s/p debridement of right medial foot wound with integra placement 01/23/[address] Weems. Pain level: 2-3/10, reports pain as: nerve pain, throbbing Medications for pain: Tylenol,ibuprofen, gabapentin Signs of infection: Odor that smells chemically per patient Bowel movement since sx: yes Dressings: WTD dressing BID New concerns: change in odor * Trinidad Weems MD - 02/04/2022 11:45 AM EST Reason for Visit Riaz Diop is a 36 y.o. male PMHX of of right plantar foot melanoma s/p WLE with Dr. Puckett 12/26. Most recently s/p debridement of right medial foot wound with integra placement 01/23/22 by . Subjective: Recovering well, no issues. Has continued [...] off-loading and walking boot [facility] Note DATE OF SERVICE: 02/19/2021 INDICATION: Choledocholithiasis. POSTPROCEDURE DIAGNOSIS: Dilated bile duct at around 12 mm with multiple filling defects, clear post sphincterotomy, drainage of black bile. PROCEDURE: Informed consent was obtained after explaining the indications, the risks including perforation, bleeding, phlebitis, and medication reaction. MEDICATION: General anesthesia. DESCRIPTION OF PROCEDURE: Olympus video therapeutic side view endoscope was advanced [...] clinically. Referral for surgical consultation for [facility] PATIENT NAME: RIAZ DIOP [address] [place] MEDICAL REC #: [id number] [place] [address] ADMIT DATE: DISCHARGE DATE: GASTROENTEROLOGY REPORT ATTENDING PHY: Jacinto Macias MD cholecystectomy discussed with the patient and the . Jacinto Macias MD /[id number] SSI File#: [id number] END OF DOCUMENT / CHANGE LOG FOLLOWS Last Edited By Elec. Signed By Jacinto Macias MD #Jacinto Traore MD #PATRICIOA on 06/29/2021 11:37 ET on 06/29/2021 11:37 ET Revision Number - 2 Verified/Reviewed by 06/29/[address] [facility] PATIENT NAME: RIAZ DIOP [address] [place] MEDICAL REC #: [id number] [place] [address] ADMIT DATE: DISCHARGE DATE: GASTROENTEROLOGY REPORT ATTENDING PHY: Jacinto Macias [facility] Author Miriam Johnson [facility] June 01, 2023 12:31pm Note Date/Time June 01, 2023 12:21 pm [facility] Medical Records Department [address] [place] [address] Discharge Summary 06/01/23 1219 MR#: [id number] Acct: [id number] Name: RIAZ DIOP Rep #:[id number] : 1985 37 From: Miriam Johnson DO PCP: Dr. Drew Mayen MD Status:A DM IN Location: [place] [address] Providers Date of Admission: 05/30/23 Date of Discharge: 06/01/23 Primary Care Physician: Dr. Drew Mayen MD Reason For Visit: SEPSIS, CELLULITIS Diagnosis Discharge Diagnosis (1) Cellulitis: Status: Acute Code(s): L03.90 - Cellulitis, unspecified (2) Leukocytosis: Status: Acute Code(s): D72.829 - Elevated white blood cell count, unspecified (3) Sepsis: Status: Acute Code(s): A41.9 - Sepsis, unspecified organism Plan Sepsis secondary to right lower extremity cellulitis -Patient presented with tachycardia, tachypnea, fever, lactic acidosis and IFTIKHAR -Sepsis appears to be resolving and fever curve improving -Continue broad-spectrum antibiotics -Await cultures--> blood cultures are still pending IFTIKHAR -Baseline serum creatinine is 1.0 -Current serum creatinine is 1.1 -Serum creatinine admission was 1.37 -Continue to monitor and avoid nephrotoxins History of chronic anemia with iron deficiency -Hemoglobin stable -Continue home oral supplementations next-repeat CBC in a.m. 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 -Biopsy 2020 that showed melanoma with negative PET -Status post resection with skin grafting 02/10/2022 -Patient now following with dermatology DORENE -Continue home CPAP Morbid obesity -BMI 40.0 -Recommend weight loss -Complicates treatment, prognosis, outcomes DVT prophylaxis -Continue Lovenox CODE STATUS -Full code Medications at Discharge Home Medications loratadine 10 mg capsule 10 mg PO DAILY 02/13/21 ferrous sulfate 325 mg (65 mg iron) tablet 325 mg PO BID #60 tabs 11/24/22 triamterene 37.5 mg-hydrochlorothiazide 25 mg tablet 1 tab PO QAM #30 tabs 03/08/23 mecobalamin (vitamin B12) 1,000 mcg chewable tablet (B12 Active) 1,000 mcg PO DAILY 05/30/23 cephalexin 500 mg capsule 500 mg PO Q6H #28 caps 06/01/23 Hospital Course Procedures - (Lower extremity Doppler) Summary of Care Provided Minutes Spent on Discharge: 37 Hospital Course: Patient is a 37-year-old male who presented to the emergency department on 05/30/2023 with complaint of discomfort in his right groin as well as right lower extremity that started the day prior to presentation. He also had chills and fever with concurrent right lower extremity erythema which began to progressively up his right lower extremity. Tmax at home was 102.9. He also had some general malaise as well as nausea and vomiting. He does have a previous history of right lower extremity cellulitis remotely. Work-up in the emergency department demonstrated mild temperature elevation at 100, heart rate was 122, blood pressure was 129/77, respiratory rate was 24 and oxygen saturation was 100% on room air. CBC showed a leukocytosis with a white count of 19.7 and a left shift. BMP showed mildly elevated BUN and creatinine at 15 and 1.37, serum glucose of 122 and a mildly elevated lactic acid at 2.2. He wasgiven Tylenol in the emergency department as well as Ancef and IV vancomycin. He was admitted to the medical floor where lower extremity Doppler was performedand was negative for DVT. Over the course of his treatment his fever curve did improve with his last elevated temperature being early in the morning on 05/31/2023. Since has been afebrile. His leukocytosis has resolved and normalized. His left shift has resolved. Clinically his right leg is much improved. Blood cultures are negative at 48 hours. Patient feels that he is much better and anxious to go home. We will continue antibiotic regimen with Keflex 4 times daily 500 mg for another 7 days and have asked him to follow-up with his primary care physician to be seen next week sometime for repeat evaluation. He was instructed if anything worsens to come back to the emergencydepartment. I have asked him to keep his leg elevated until cellulitis has improved. He had this previously and this is a second episode so he does increased risk for recurrence. There did not seem to be a wound that was responsible for this event. Patient was able be discharged home in stable condition with a prescription for Keflex on 06/01/2023. Discharge diagnoses: Sepsis-resolved Right lower extremity cellulitis-improving IFTIKHAR-resolved History of chronic anemia due to iron deficiency Hypertension Chronic asthma Allergic rhinitis Melanocytic nevus DORENE Morbid obesity Physical Exam Const alert, oriented x3, no apparent distress, healthy appearing and well nourished; Negative for average body habitus Constitutional Narrative: Morbidly obese, middle-aged, white male, sitting up in bed watching television, appears comfortable, nontoxic General Appearance: cooperative, comfortable, well kempt and well developed Orientation / Consciousness: awake, oriented to person, oriented to place and oriented to time Exam Limitations: no limitations Nutritional Appearance: obese HEENT normocephalic, head/scalp atraumatic, hearing grossly normal bilaterally and moist oral mucous membranes HEENT Narrative: Mallampati 3, no thrush Eyes PERRL, EOMs intact bilaterally and conjunctivae normal Eyes Narrative: No scleral icterus Neck no lymphadenopathy, supple, no JVD and thyroid normal Neck Narrative: Trachea midline Resp normal respiratory effort, no retractions, no use of accessory muscles and clearto auscultation bilaterally Auscultation: Negative for rales, rhonchi or wheezes Cardio regular rate, regular rhythm, S1 normal heart sound, S2 normal heart sound, no murmurs, no rub, no gallops and no clicks GI normal to inspection, nondistended, normoactive bowel sounds, soft to palpation,non-tender and non-distended Extremity Extremity Narrative: Right lower extremity with much improved erythema and retraction from outlined area, erythematous areas on proximal thigh are resolved, still with some mild edema, no cyanosis or clubbing, no pain with palpation or with ambulation, left lower extremity within normal limits Skin no wounds, skin turgor normal and no jaundice Skin Narrative: As noted above Neuro oriented x3, moves all extremities, no focal motor deficits and no sensory deficits noted Sensorium / Orientation: awake and alert Speech: speech normal Psych affect normal Psych Narrative: Pleasant, appropriately interactive Weight / BMI Weight Weight: 147.8 kg Body Mass Index (BMI) 39.6 ABG / Lab / Microbiology Data 06/01/23 04:30 06/01/23 04:30 Laboratory: Laboratory Results - last 24 hr 06/01/23 04:30: WBC 6.3, RBC 4.16 L, Hgb 13.2, Hct 38.4 L, MCV 92.3, MCH 31.7, MCHC 34.4, RDW Std Deviation 43.5, RDW Coeff of Geoff 12.8, Plt Count 251, MPV 10.4, Immature Gran % (Auto) 0.300, Neut % (Auto) 66.4, Lymph % (Auto) 23.8, Candler % (Auto) 7.3, Eos % (Auto) 1.6, Baso % (Auto) 0.6, Absolute Neuts (auto) 4.2, Absolute Lymphs (auto) 1.50, Nucleated RBC % 0, Sodium 142, Potassium 3.9, Chloride 113 H, Carbon Dioxide 27.0, Anion Gap 2 L, BUN 7, Creatinine 1.03, Estim Creat Clear Calc 120.56, Est GFR (MDRD) Af Amer 104, Est GFR (MDRD) Non-Af86, BUN/Creatinine Ratio 6.8 L, Glucose 104, Calcium 8.4 L, Vancomycin Trough 18.7 H Microbiology: Microbiology 05/29/23 03:35 Blood Culture (Wb) - Anticubital Right Blood Culture - Preliminary No growth in 48 hours. 05/29/23 03:35 Blood Culture (Wb) - Anticubital Left Blood Culture - Preliminary No growth in 48 hours. D/C Instructions Discharge Diet: No restrictions Discharge Activity: Return to Normal Activity Return to work on: 06/02/23 Meaningful Use Info Meaningful Use Diagnoses (Choose all that apply): None applicable Discharge Plan Admission Admit Date/Time: 05/30/23 02:56 Primary Reason for Your Visit: Right lower extremity cellulitis Attending Provider: Miriam Johnson Primary Care Provider: Drew Mayen Consulting Providers: Suzi Castaneda; Gatito Chase Instructions Additional Instructions / Restrictions: Please keep right lower extremity elevated as much as possible until your cellulitis has resolved Discharge Orders/Prescriptions Prescriptions: New cephalexin 500 mg capsule 500 mg PO Q6H Qty: 28 0RF Continued triamterene-hydrochlorothiazid 37.5-25 mg tablet 1 tab PO QAM Qty: 30 1RF loratadine 10 MG capsule 10 mg PO DAILY ferrous sulfate 325 mg (65 mg iron) tablet 325 mg PO BID Qty: 60 0RF mecobalamin (vitamin B12) [B12 Active] 1,000 mcg tablet,chewable 1,000 mcg PO DAILY Referrals / Follow Up: Drew Mayen MD [Primary Care Provider] - Within 1 Week (Call tomorrow 06/02/2023 to set up appointment to be seen next week) Disposition Disposition (needs filled in before D/C Order can be placed): Home, Self Care Charges/Coding Visit Charges Inpatient E&M: 12980 Disch Hosp >30min 06/01/23 1231 <Electronically signed by Miriam Johnson DO> Cosigner Signature (if applicable): CC: Dr. Drew Mayen MD; Dr. Miriam Johnson DO~ Signed [facility] Work Phone: Discharge summary Author Joann Cheng [facility] November 17, 2023 9:34am Note Date/Time November 17, 2023 9:32am [facility] Medical Records Department [address] [place] [id number] Instructions for Home/Discharge Instructions 11/17/23 0929 MR#: [id number] Acct: [id number] Name: RIAZ DIOP Rep #:[id number] : 1985 38 From: Joann SORIANO PA-C PCP: Dr. Drew Mayen MD Status:A DM DEISY Discharge Instructions Diet Discharge Diet: Light diet - advance as tolerated Activity Discharge Activity: May Not Drive (For 3-5 days or while taking narcotic pain medication) and May Shower Lifting Restrictions: 10 pounds for the first 2 weeks Dressing / Incision Call your doctor if your incision/area has: Continuous Slow Oozing, Sudden Increased Bleeding, Increased Pain/ Swelling, Increased Redness, Foul Smelling Discharge and Swelling at the incision site Call your doctor if you observe: Fever of 101 or Higher Suture Line Care: Avoid Pulling/Pushing and Avoid Pinching/Bending Remove Dressing in: 2 days Cleanse incision/area with: Soap & Water Follow Up Care Please Follow Up With: Trinidad Nicolas MD When: Please call to schedule an appointment for a 2 week follow-up at [phone] Test Results: Test results from this visit will be discussed in further detail at your follow- up appointment, if applicable. Discharge Plan Admission Admit Date/Time: 11/16/23 13:05 Primary Reason for Your Visit: Acute appendicitis Attending Provider: Trinidad Nicolas Primary Care Provider: Drew Mayen Instructions Additional Instructions / Restrictions: Appendectomy Diet ? Start light with soups and soft bland foods. You may advance diet as tolerated. Activity ? You may drive in 3-5 days but not while taking narcotic pain medication. ? I encourage walking. You may go up steps, one at a time. ? Do not swim or use hot tubs for 2 weeks. ? For comfort, you may use warm compresses or ice as needed for 15-20 minutes jason time. Lifting ? You may lift up to 10 pounds for the first 2 weeks. You may advance to 15 pounds for the next 2 weeks. Dressings/Incision ? You may shower OVER your plastic dressings ? Do NOT tub bathe for 1 week ? Leave plastic dressings on for 2 days. ? When plastic dressings are removed, you will find steri-strips. It is okay to continue showering with them in place, pat them dry. ? You may remove steri-strips after 1 week. We recommend getting them soaking wet for easier removal. Medications ? Anesthesia used during surgery and pain medications may cause constipation. I recommend initiating on the day of surgery a fiber supplement like, Metamucil, Citrucel, FiberCon, Benefiber, or a generic form of these medications. 1 heapingtablespoon in water daily. You may continue to utilize any bowel regimen or orallaxatives that you routinely take. ? As long as you are not intolerant to Tylenol, acetaminophen, ibuprofen, Motrin, Advil, Aleve, or similar medications, I would recommend transitioning tothese qafg-dtg-eefqynb medicines as soon as possible instead of continued use ofnarcotic pain medication. Follow up ? You should call [facility] soon after surgery, at [phone] option 1 to make a follow up appointment for 2 weeks after your surgery. Discharge Orders/Prescriptions Prescriptions: New oxycodone 5 mg Tablet 5 mg PO Q6H PRN PRN (Reason: Pain Score 6-10) 3 Days Qty: 10 0RF Continued triamterene-hydrochlorothiazid 37.5-25 mg tablet 1 tab PO QAM Qty: 90 3RF valsartan 80 mg tablet 80 mg PO DAILY Qty: 90 1RF loratadine 10 MG capsule 10 mg PO DAILY Referrals / Follow Up: Drew Mayen MD [Primary Care Provider] - Disposition Disposition (needs filled in before D/C Order can be placed): Home, Self Care 11/17/23 0997<Electronically signed by Joann SORIANO PA-C>Joann SORIANO PA-C CC: Dr. Drew Mayen MD ~ Signed [facility] Work Phone: Evaluation note* Diagnosis Malignant melanoma, unspecified site- Primary [facility] Diagnosis S/P split thickness skin graft- Primary Encounter for follow-up Malignant melanoma of right lower extremity including hip Malignant melanoma of skin of lower limb, including hip [facility] Diagnosis Malignant melanoma of right lower extremity including hip- Primary Malignant melanoma of skin of lower limb, including hip [facility] Diagnosis Onset Date Resolution Status Anemia acute Cellulitis of leg, right acu te [facility] Work Phone: Evaluation note* Diagnosis Onset Date Resolution Status Discoloration of skin acute Hypertension chronic Venous insufficiency of both lower extremities chronic Anemia acute Hypertension chronic Venous insufficiency of both lower extremities chronic [facility] Work Phone: Evaluation note* Diagnosis Onset Date Resolution Status Discoloration of skin acute Hypertension chronic Venous insufficiency of both lower extremities chronic Anemia acute Hypertension chronic Venous insufficiency of both lower extremities chronic Cellulitis acute Cellulitis of leg, right acu te Leukocytosis acute Sepsis acute [facility] Work Phone: Evaluation note* Diagnosis Onset Date Resolution Status Anemia acute Hypertension chronic Venous insufficiency of both lower extremities chronic Cellulitis of leg, right acu te Leukocytosis resolved Sepsis resolved Cellulitis of leg, right acu te Hypertension chronic Venous insufficiency of both lower extremities chronic Hypertension chronic Venous insufficiency of both lower extremities chronic Discoloration of skin acute Lower extremity edema acute [facility] Work Phone: Evaluation note* Diagnosis Onset Date Resolution Status Hypertension chronic Venous insufficiency of both lower extremities chronic Discoloration of skin acute Lower extremity edema acute Diarrhea acute DORENE (obstructive sleep apnea) acute Anemia chronic Hypertension [facility] Work Phone: Evaluation note* Diagnosis Onset Date Resolution Status Diarrhea acute DORENE (obstructive sleep apnea) acute Anemia chronic Hypertension chronic Abdominal pain acute Acute appendicitis acute [facility] Work Phone: Evaluation note* Diagnosis Onset Date Resolution Status Diarrhea acute DORENE (obstructive sleep apnea) acute Anemia chronic Hypertension chronic Abdominal pain resolved Acute appendicitis resolved Status post laparoscopic appendectomy acute Umbilical hernia without obs truction and without gangrene [facility] Work Phone: Evaluation note* Diagnosis Onset Date Resolution Status Diarrhea acute Anemia chronic Hypertension chronic DORENE (obstructive sleep apnea) chronic Abdominal pain resolved Acute appendicitis resolved Status post laparoscopic appendectomy acute Umbilical hernia without obs truction and without gangrene chronic Hypertension chronic DORENE (obstructive sleep apnea) chronic Umbilical hernia without obs truction and without gangrene chronic Venous insufficiency of both lower extremities [facility] Work Phone: Evaluation note* Diagnosis Onset Date Resolution Status Abdominal pain resolved Acute appendicitis resolved Status post laparoscopic appendectomy acute Umbilical hernia without obs truction and without gangrene chronic Hypertension chronic DORENE (obstructive sleep apnea) chronic Umbilical hernia without obs truction and without gangrene chronic Venous insufficiency of both lower extremities chronic Status post umbilical hernia repair, follow-up exam acute Status post umbilical hernia repair, follow-up exam acute Abdominal pain resolved [facility] Work Phone: Evaluation note* Diagnosis Acute otitis media, right- Primary Unspecified otitis media [facility] Joann Cheng [facility] November 16, 2023 1:48pm Note Date/Time November 16, 2023 1:18pm [facility] Medical Records Department [address] [place] [address] History & Physical Exam 11/16/23 1316 MR#: [id number] Acct: [id number] Name: RIAZ DIOP Rep #:[id number] : 1985 38 From: Joann SORIANO PASukhiC PCP: Dr. Drew Mayen MD Status:A DM DEISY [place] [facility] [place] [facility] [place] [id number] HPI - General General Date of Admission: 11/16/23 Date of Service: 11/16/23 Chief Complaint: Abdominal pain HPI Narrative RIAZ DIOP, is a 38 M who presents with 1 day history of abdominal pain which started at 0300 AM. He noted the pain started in his epigastric region. Hethought this was gas and waited until 0600 AM when [employer] [employer] opened and purchased some gas-x. He noted the pain continued even after taking the gas-x medication and the pain moved to the right lower quadrant. Patient also noted associated nausea. He denies vomiting, fever, lack of appetite. He notes having normal stools. He denies being around any sick contacts. Patient notes a history of hypertension and asthma. He is on medication for high blood pressure and had asthma as a child. No recent history of an asthma attack. Patient has recently had multiple surgeries this year. Patient notes an ERCP and laparoscopic cholecystectomy earlier this year at [facility] and more recently an excision of a cancerous skin lesion from the bottom of hiss foot followed by a skin graft placement. A CT scan of the ab/pel was obtained demonstrating IMPRESSION: 1. Thickening of the appendix with periappendiceal stranding consistent with acute appendicitis. 2. Hepatic steatosis, mild splenomegaly with collateral veins in the splenic hilum which may reflect portal venous hypertension. WBC 13.3 with left shift. [facility] Medical History Asthma Congenital absence of left kidney Diarrhea Discoloration of skin Elevated random blood glucose level Fatty infiltration of liver Gallstones Hypersomnolence Hypertension (Unknown) TARAS (iron deficiency anemia) Localized swelling of right foot Melanoma Obesity (BMI 30-39.9) DORENE (obstructive sleep apnea) Rash Shortness of breath Shoulder pain Sleep apnea Venous insufficiency of both lower extremities Home Medications loratadine 10 mg capsule 10 mg PO DAILY ALLERGIES 02/13/21 [History Last Taken Unknown] triamterene 37.5 mg-hydrochlorothiazide 25 mg tablet 1 tab PO QAM BLOOD PRESSURE#90 tabs 07/09/23 [Rx Last Taken Unknown] valsartan 80 mg tablet 80 mg PO DAILY BLOOD PRESSURE #90 tabs 07/09/23 [Rx Last Taken Unknown] Allergy/AdvReac Type Severity Reaction Status Date / Time shellfish derived Allergy Severe Nausea/Vom/ Verified 10/11/23 08:40 Diarrhea Family History Mother Asthma Cancer basal cell Surgical History History of cholecystectomy History of hernia repair History of wisdom tooth extraction Hx of foot surgery Social History household members: spouse Smoking Status: Never smoker alcohol intake: never substance use type: does not use what type of physical activity do you participate in: bicycling frequency: 1-2 times per week ROS Constitutional Constitutional: Reports systems reviewed and no addt'l complaints, except as documented Eyes Eyes: Reports systems reviewed and no addt'l complaints, except as documented ENT HEENT: Reports systems reviewed and no addt'l complaints, except as documented Cardiovascular Cardiovascular: Reports systems reviewed and no addt'l complaints, except as documented Respiratory/Chest Respiratory/Chest: Reports systems reviewed and no addt'l complaints, except as documented Gastrointestinal Gastrointestinal: Reports systems reviewed and no addt'l complaints, except as documented Genitourinary Genitourinary: Reports systems reviewed and no addt'l complaints, except as documented Musculoskeletal Musculoskeletal: Reports systems reviewed and no addt'l complaints, except as documented Integumentary Integumentary: Reports systems reviewed and no addt'l complaints, except as documented Neurologic Neurologic: Reports systems reviewed and no addt'l complaints, except as documented Psychiatric Psychiatric: Reports systems reviewed and no addt'l complaints, except as documented Endocrine Endocrinology: Reports systems reviewed and no addt'l complaints, except as documented Hematologic/Lymphatic Hematologic/Lymphatic: Reports systems reviewed and no addt'l complaints, exceptas documented Allergic/Immunologic Allergic/Immunologic: Reports systems reviewed and no addt'l complaints, except as documented Vital Signs Vital Signs Vital Signs: 11/16/23 09:33 Temperature 97.8 F Temperature Source Temporal Pulse Rate 107 H Respiratory Rate 16 Blood Pressure 139/93 H Blood Pressure Mean 108 Pulse Ox 98 Oxygen Delivery Method Room Air Weight Weight: 324 lb 3.2 oz Body Mass Index (BMI) 39.4 Physical Exam Const alert, oriented x3 and no apparent distress HEENT normocephalic and head/scalp atraumatic Eyes PERRL and EOMs intact bilaterally Neck full ROM Lymph Lymphatic: no lymphadenopathy noted Chest inspection of chest normal Resp normal respiratory effort and clear to auscultation bilaterally Cardio regular rate and regular rhythm GI GI Narrative: Abdomen- central obesity, soft, tenderness in the right lower quadrant with palpation, hypoactive bowel sounds. Positive McBurney's point and psoas sign. Negative Obturator sign. Nicely healed inferior umbilical incision. no CVA tenderness Back/Spine no CVA tenderness Extremity normal to inspection Skin no rashes or lesions noted Neuro no focal motor deficits and no sensory deficits noted Psych mental status grossly normal and thought process normal Results Lab / Micro Data 11/16/23 10:15 11/16/23 10:15 Labs: Laboratory Results - last 24 hr 11/16/23 10:15: WBC 13.3 H, RBC 4.67, Hgb 14.4, Hct 41.8, MCV 89.5, MCH 30.8, MCHC 34.4, RDW Std Deviation 39.8, RDW Coeff of Geoff 12.2, Plt Count 367, MPV 10.1, Immature Gran % (Auto) 0.400, Neut % (Auto) 85.6 H, Lymph % (Auto) 9.2 L, Candler % (Auto) 4.5, Eos % (Auto) 0.1, Baso % (Auto) 0.2, Absolute Neuts (auto) 11.4 H, Absolute Lymphs (auto) 1.22, Nucleated RBC % 0, Sodium 139, Potassium 3.8, Chloride 108 H, Carbon Dioxide 26.0, Anion Gap 5, BUN 10, Creatinine 1.07, Estim Creat Clear Calc 114.92, Est GFR (MDRD) Af Amer 99, Est GFR (MDRD) Non-Af 82, BUN/Creatinine Ratio 9.3 L, Glucose 115 H, Calcium 8.9, Total Bilirubin 0.70, AST 19, ALT 51, Alkaline Phosphatase 70, Total Protein 7.3, Albumin 3.8, Globulin 3.5, Albumin/Globulin Ratio 1.1, Lipase 28 11/16/23 11:55: Urine Color Straw, Urine Clarity Clear, Urine pH 6.5, Ur Specific [place] 1.010, Urine Protein Negative, Urine Glucose (UA) Normal, UrineKetones Negative, Urine Occult Blood Negative, Urine Nitrite Negative, Urine Bilirubin Negative, Urine Urobilinogen Normal, Ur Leukocyte Esterase Negative, Urine RBC 0 SEEN, Urine WBC 0 SEEN, Ur Squamous Epith Cells 0-5 SEEN, Urine Bacteria 0 SEEN, Urine Mucus 0 SEEN Imagaing Radiology Impression Abdomen/Pelvis CT 11/16/23 09:57 IMPRESSION: 1. Thickening of the appendix with periappendiceal stranding consistent with acute appendicitis. 2. Hepatic steatosis, mild splenomegaly with collateral veins in the splenic hilum which may reflect portal venous hypertension. Electronically Signed: Jr Nation MD at 12:14 EST , ADDENDUM: 11/16/23 2208 IMPRESSION: 1. Thickening of the appendix with periappendiceal stranding consistent with acute appendicitis. 2. Hepatic steatosis, mild splenomegaly with collateral veins in the splenic hilum which may reflect portal venous hypertension. N.B. : The above Results were Read Back by Jr Nation MD to Schwiger, Antonio, DO, and understanding confirmed on 11/16/2023 12:17:16 (ET). Electronically Signed: Jr Nation MD at 12:14 EST , Assessment & Plan Assessment/Plan (1) Acute appendicitis: QUALIFIERS: Acute appendicitis type: with localized peritonitis Appendicitis gangrene presence: unspecified whether gangrene present Appendicitis perforation presence: unspecified whether perforation present Appendicitis abscess presence: without abscess Qualified Code(s): K35.30 - Acute appendicitis with localized peritonitis, without perforation or gangrene PLAN: I am seeing this patient in conjunction with Dr. Nicolas. CT scan of the ab/pel is demonstrating acute appendicitis. Patient has an elevated white count with a left shift. Dr. Nicolas will plan to perform a laparoscopic appendectomy. Procedure details, risks and benefits have been explained. Plan to admit patientto med/surg floor for observation, STAT EKG pre-op, patient has had a dose of Zosyn in the ED. Plan to send Ancef with the patient to the OR. Patient and his spouse have had the opportunity to ask and have questions answered. Patient verbally understands and agrees with the plan. Thank you for allowing us to participate in this patient's care. Charges/Coding Visit Charges OBSV E&M: 69004 Observ/hosp same date L2 11/16/23 1348 <Electronically signed by Joann SORIANO PA-C> Cosigner Signature (if applicable): CC: XIOMY Cheng; Dr. Drew Mayen MD~ Signed [facility] Work Phone: Reason for referral (narrative)No reason for referral [facility] Work Phone: Summary Purpose Family History No Family History Records Found Relationship Condition Age at Onset Recorded Date/T bladimir mother Asthma Unknown Malignant neoplasm Unknown Advance Directives No Advanced Directives Records Found Advance Directive Response Recorded Date/ Time Living Will No November 23 9:01pm Power of Hr Internship No November 23, 2022 9:01pm Advance Directive Response Recorded Date/ Time Living Will No November 23, 2 022 10:56pm Power of Hr Internship No November 23, 2022 10:56pm Advance Directive Response Recorded Date/ Time Living Will No May 29, 2023 1 1:15pm Power of Hr Internship No May 29, 2023 11:15pm Advance Directive Response Recorded Date/ Time Living Will No May 30, 2023 4 :35am Power of Hr Internship No May 30, 2023 4:35am Advance Directive Response Recorded Date/ Time Living Will No May 30, 2023 3 :35am Power of Hr Internship No May 30, 2023 3:35am Advance Directive Response Recorded Date/ Time Living Will No November 16, 2 023 12:05pm Power of Hr Internship No November 16, 2023 12:05pm Advance Directive Response Recorded Date/ Time Living Will No November 16, 2 023 1:57pm Power of Hr Internship No November 16, 2023 1:57pm Advance Directive Response Recorded Date/ Time Living Will No December 30 1:23pm Power of Hr Internship No December 30, 2023 1:23pm Advance Directive Response Recorded Date/ Time Living Will No December 30 2:23pm Power of Hr Internship No December 30, 2023 2:23pm Advance Directive Response Recorded Date/ Time Living Will No January 31, 2025 5:00pm Do you have a [facility] Power of Hr Internship? No January 31, 2025 5:00pm Chief Complaint and Reason for Visit Chief Complaint RLE CELLULITIS Reason for Visit Anemia Cellulitis of leg, right Chief Complaint Possible Cellulitis in foot 1 M FU CELLULITIS IN LEG Reason for Visit Discoloration of ski n Hypertension Venous insufficiency of both lower extremities Anemia Hypertension Venous insufficiency of both lower extremities Chief Complaint Possible Cellulitis in foot 1 M FU SEPSIS, CELLULITIS SEPSIS, CELLULITIS SEPSIS, CELLULITIS Reason for Visit Discoloration of ski n Hypertension Venous insufficiency of both lower extremities Anemia Hypertension Venous insufficiency of both lower extremities Cellulitis Cellulitis of leg, right Leukocytosis Sepsis Chief Complaint 1 M FU SEPSIS, CELLULITIS SEPSIS, CELLULITIS SEPSIS, CELLULITIS [facility] FOLLOW UP - CELLULITIS 1 M FU CONSULT-VENOUS INSSUFFICIENCY Venous insufficiency (chronic) (peripheral) Reason for Visit Anemia Hypertension Venous insufficiency of both lower extremities Cellulitis of leg, right Leukocytosis Sepsis Cellulitis of leg, right Hypertension Venous insufficiency of both lower extremities Hypertension Venous insufficiency of both lower extremities Discoloration of skin Lower extremity edema Chief Complaint 1 M FU CONSULT-VENOUS INSSUFFICIENCY Venous insufficiency (chronic) (peripheral) 3 m fu Reason for Visit Hypertension Venous insufficiency of both lower extremities Discoloration of skin Lower extremity edema Diarrhea DORENE (obstructive sleep apnea) Anemia Hypertension Chief Complaint Venous insufficiency (chronic) (peripheral) 3 m fu ACUTE APPENDICITIS ACUTE APPENDICITIS Reason for Visit Diarrhea DORENE (obstructive sleep apnea) Anemia Hypertension Abdominal pain Acute appendicitis Chief Complaint Venous insufficiency (chronic) (peripheral) 3 m fu ACUTE APPENDICITIS ACUTE APPENDICITIS ACUTE APPENDICITIS Reason for Visit Diarrhea DORENE (obstructive sleep apnea) Anemia Hypertension Abdominal pain Acute appendicitis Chief Complaint 3 m fu ACUTE APPENDICITIS ACUTE APPENDICITIS ACUTE APPENDICITIS APPY 12, DISCUSS HERNIA SURGERY Reason for Visit Diarrhea DORENE (obstructive sleep apnea) Anemia Hypertension Abdominal pain Acute appendicitis Status post laparoscopic appendectomy Umbilical hernia without obstruction and without gangrene Chief Complaint 3 m fu ACUTE APPENDICITIS ACUTE APPENDICITIS ACUTE APPENDICITIS APPY 11/16, DISCUSS HERNIA SURGERY Lap Robotic Umb/Ventral Hernia Lap Robotic Umb/Ventral Hernia Reason for Visit Diarrhea DOREEN (obstructive sleep apnea) Anemia Hypertension Abdominal pain Acute appendicitis Status post laparoscopic appendectomy Umbilical hernia without obstruction and without gangrene Chief Complaint 3 m fu ACUTE APPENDICITIS ACUTE APPENDICITIS ACUTE APPENDICITIS APPY 12, DISCUSS HERNIA SURGERY Lap Robotic Umb/Ventral Hernia Lap Robotic Umb/Ventral Hernia 3 M FU Reason for Visit Diarrhea Anemia Hypertension DORENE (obstructive sleep apnea) Abdominal pain Acute appendicitis Status post laparoscopic appendectomy Umbilical hernia without obstruction and without gangrene Hypertension DORENE (obstructive sleep apnea) Umbilical hernia without obstruction and without gangrene Venous insufficiency of both lower extremities Chief Complaint ACUTE APPENDICITIS ACUTE APPENDICITIS ACUTE APPENDICITIS APPY 12, DISCUSS HERNIA SURGERY Lap Robotic Umb/Ventral Hernia Lap Robotic Umb/Ventral Hernia 3 M FU HERNIA DOS 2 Wound check HERNIA DOS 01/10 POSSIBLE BOWEL OBSTRUCTION abdominal pain Reason for Visit Abdominal pain Acute appendicitis Status post laparoscopic appendectomy Umbilical hernia without obstruction and without gangrene Hypertension DORENE (obstructive sleep apnea) Umbilical hernia without obstruction and without gangrene Venous insufficiency of both lower extremities Status post umbilical hernia repair, follow-up exam Status post umbilical hernia repair, follow-up exam Abdominal pain Chief Complaint Admit Date CELLULITIS January 31, 2025 2:50 pm acute -possible cellulitis February 07, 2 025 1:25pm 3 M FU May 09, 2025 2:23 pm Reason for Visit Admit Date Allergic urticaria February 07, 2025 1:2 5pm Hypertension February 07, 2025 1:2 5pm Chief Complaint Admit Date 3 M FU May 09, 2025 2:23 pm 2 M FU July 11, 2025 8: 05am Reason for Visit Admit Date Dermatitis May 09, 2025 2:23 pm Hypertension May 09, 2025 2:23 pm Additional Source Comments (unrecognized sect ion and content) No Status Records FoundNo Status Records FoundNo Status Records FoundNo Status Records FoundNo Status Records Found INFORMATION SOURCE (unrecogn ized section and content) DATE CREATED AUTHOR 02/17/2021 [facility] ([place]) DATE CREATED AUTHOR AUTHOR'S ORGANIZ ATION 06/29/2021 [facility] DATE CREATED AUTHOR AUTHOR'S ORGANIZ ATION 05/02/2022 [facility] DATE CREATED AUTHOR AUTHOR'S ORGANIZ ATION 05/20/2024 [facility] DATE CREATED AUTHOR AUTHOR'S ORGANIZ ATION 07/12/2025 [facility] Reason for Visit (unrecogniz ed section and content) Reason Comments Wound Check Reason Comments Post Op Visit Reason Comments Ear Problem Bilat ear problem, s tates they are feeling clogged, loss of hearing, scratching ears couple months increasing x couple days into discomfort Care Teams (unrecognized sec tion and content) 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 Relationship Specialty Start Date End Date Drew Mayen MD [address] [facility] [address] [place] [phone] PCP - General Internal Medicine 11/26/21 Riaz Jackson MB/HAYDER [address] [place] [phone] Referring Provider Hematology 11/26/21 Wendy Das, french drawer 12/30/21 Trinidad Weems MD [address] [facility] [address] [place] [phone] Surgeon Plastic Surgery 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 Start Date End Date Drew Mayen MD [address] [facility] [place] [place] [phone] PCP - General Internal Medicine 11/26/21 Riaz Jackson MB/CHB [address] [place] [address] [place] [phone] Referring Provider Hematology 11/26/21 Wendy Das, french drawer 12/30/21 Trinidad Weems MD [address] [place] [address] [place] [phone] Surgeon Plastic Surgery 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 Drew Mayen MD Family Provider Active Dr. Drew Mayen MD Primary Care Provider Active Team Status: Inactive Member Role Status Dates Dr. Drew Mayen MD Primary Care Tashia turcios, Attending Provider, Referring Provider Active Team Status: Active Member Role Status Dates Dr. Drew Mayen MD Primary Care Provider Active Health Risk Assessment Attending Provider Active Team Status: Inactive Member Role Status Dates Dr. Drew Mayen MD Primary Care Provider Active Dr. Antonio Ferguson , Emergency Provider Active Team Status: Active Member Role Status Dates Dr. Drew Mayen MD Primary Care Provider Active Dr. Flynn North MD Attending Provider Active Team Status: Active Member Role Status Dates Dr. Drew Mayen MD Primary Care Provider Active Dr. Antonio Ferguson , Emergency Provider Active Dr. Suzi Castaneda MD Admit Provider, Other Provider Active Dr. Miriam Johnson , DO Attending Provider, Other Provide r Active Dr. Gatito Chase , DO Other Provider Active Team Status: Inactive Member Role Status Dates Dr. Drew Mayen MD Primary Care Provider Active Dr. Antonio Ferguson , Emergency Provider Active Dr. Suzi Castaneda MD Admit Provider, Other Provider Active Dr. Miriam Johnson , DO Attending Provider Active Dr. Gatito Chase , DO Other Provider Active Team Status: Active Member Role Status Dates Dr. Drew Mayen MD Primary Care Provider Active Dr. Flynn North MD Attending Provider Active Dr. Suzi Castaneda MD Referring Provider Active Team Status: Inactive Member Role Status Dates Dr. Drew Mayen MD Primary Care Provider, Refer ring Provider Active BO Pastor Attending Provider Active Team Status: Active Member Role Status Dates Dr. Drew Mayen MD Primary Care Provider Active Dr. Antonio Nava MD Attending Provider Active Team Status: Inactive Member Role Status Dates Dr. Drew Mayen MD Primary Care Provider Active Dr. Antonio Nava MD Attending Provider, Referring Pro vider Active Team Status: Inactive Member Role Status Dates Dr. Drew Mayen MD Primary Care Provider, Refer ring Provider Active BO Baker Attending Provider Active Team Status: Active Member Role Status Dates Dr. Drew Mayen MD Primary Care Provider Active Dr. Antonio Nava MD Attending Provider Active BO Baker Referring Provider Active Team Status: Active Member Role Status Dates Dr. Drew Mayen MD Primary Care Provider Active Dr. Antonio Ferguson DO Emergency Provider Active Dr. Trinidad Nicolas MD Admit Provider, Other Provider Active Joann SORIANO PA-C Attending Provider Active Team Status: Active Member Role Status Dates Dr. Drew Mayen MD Primary Care Provider Active Dr. Antonio Ferguson DO Emergency Provider Active Dr. Trinidad Nicolas MD Admit Provider, Attending Provi coco Active Team Status: Inactive Member Role Status Dates Dr. Drew Mayen MD Primary Care Provider Active Dr. Antonio Ferguson DO Emergency Provider Active Dr. Trinidad Nicolas MD Admit Provider, Attending Provi coco Active Team Status: Active Member Role Status Dates Dr. Drew Mayen MD Primary Care Provider Active Dr. Antonio Ferguson DO Emergency Provider Active Dr. Trinidad Nicolas MD Admit Provider, A ttending Provider, Other Provider Active Joann SORIANO PA-C Active Team Status: Inactive Member Role Status Dates Dr. Drew Mayen MD Primary Care Provider Active Dr. Trinidad Nicolas MD Attending Provider, Referring P rovider Active Team Status: Active Member Role Status Dates Dr. Drew Mayen MD Primary Care Provider Active Dr. Trinidad Nicolas MD Attending Provide r, Referring Provider, Other Provider Active Team Status: Inactive Member Role Status Dates Dr. Drew Mayen MD Primary Care Provider, Refer ring Provider Active Dr. Trinidad Nicolas MD Attending Provider Active Team Status: Inactive Member Role Status Dates Dr. Drew Mayen MD Primary Care Provider Active Dr. Trinidad Nicolas MD Referring Provider Active Joann SORIANO PA-C Attending Provider Active Team Status: Inactive Member Role Status Dates Dr. Drew Mayen MD Primary Care Provider, Refer ring Provider Active BO Joe Attending Provider Active Team Status: Inactive Member Role Status Dates Dr. 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 Drew Mayen MD Primary Care Provider Active Team Status: Inactive Member Role Status Dates Dr. Drew Mayen MD Primary Care Provider Active Start: January 31, 2025 End: January 31, 2025 Dr. Ruiz Schwartz MD Attending Provider Active S tart: January 31, 2025 End: January 31, 2025 Dr. Ruiz Schwartz MD Emergency Provider Active S tart: January 31, 2025 End: January 31, 2025 Team Status: Inactive Member Role Status Dates Dr. Drew Mayen MD Primary Care Provider Active Start: February 07, 2025 End: February 07, 2025 Dr. Drew Mayen MD Referring Provider Active Start: February 07, 2025 End: February 07, 2025 BO Joe Attending Provider Active St art: February 07, 2025 End: February 07, 2025 Team Status: Inactive Member Role Status Dates Dr. Drew Mayen MD Primary Care Provider Active Start: May 09, 2025 End: May 09, 2025 Dr. Drew Mayen MD Attending Provider Active Start: May 09, 2025 End: May 09, 2025 Dr. Drew Mayen MD Referring Provider Active Start: May 09, 2025 End: May 09, 2025 Team Status: Active Member Role/Relationship Status Dates Dr. Drew Mayen MD Primary Care Provider Active Team Status: Inactive Member Role/Relationship Status Dates Dr. Drew Mayen MD Primary Care Provider Active Start: May 09, 2025 End: May 09, 2025 Dr. Drew Mayen MD Attending Provider Active Start: May 09, 2025 End: May 09, 2025 Dr. Drew Mayen MD Referring Provider Active Start: May 09, 2025 End: May 09, 2025 Team Status: Inactive Member Role/Relationship Status Dates Dr. Drew Mayen MD Primary Care Provider Active Start: July 11, 2025 End: July 11, 2025 Dr. Drew Mayen MD Attending Provider Active Start: July 11, 2025 End: July 11, 2025 Dr. Drew Mayen MD Referring Provider Active Start: July 11, 2025 End: July 11, 2025 Goals (unrecognized section and content) Goals may be documented in a n alternate sectionGoals may be documented in an alternate sectionGoals may be documented in an alternate sectionGoals may be documented in an alternate sectionGoals may be documented in an alternate sectionGoals may be documented in an alternate section Source Comments (unrecognize d section and content) In the event this informatio n is protected by the Federal Confidentiality of Alcohol and Drug Abuse Patient Records regulations: The Federal rules restrict any use of the information to criminally investigate or prosecute any alcohol or drug abuse patient.[facility] FOR RECORDS PERTAINING TO PATIENTS WHO ARE [...] BE BASED ON THE PRIMARY CLINICAL RECORDS. [employer] [facility]. provides no warranty or guarantee of the accuracy or completeness of information in this document.
--- NOTE | 2025-10-09 19:28 | EDS_ITS ---
HPI History of Present Illness Chief Complaint: Cellulitis Narrative Narrative: Patient is a 39-year-old male presenting to the emergency department for concern of right lower extremity cellulitis. Patient has a past medical history of cellulitis, hypertension, asthma. Patient states that today after he ate lunch he developed a low-grade fever at home with nausea and multiple episodes of nonbloody, nonbilious emesis. States that he had a stomachache. He denies any chest pain or shortness of breath. He reports that this happened twice in the past where he initially had a fever and nausea and vomiting and then developed right lower extremity cellulitis. States he did have a past surgery to remove skin cancer on the bottom of his right foot and since then has had issues with it. Denies any history of diabetes, chronic steroid use, immunosuppression, IV drug use. He is endorsing some right lower leg pain, denies any trauma or injury to the leg. [facility] Medical History Screening for prostate cancer Dermatitis Localized skin mass, lump, or swelling Fatty liver CPAP (continuous positive airway pressure) dependence Non-smoker History of edema Diarrhea Discoloration of skin Venous insufficiency of both lower extremities TARAS (iron deficiency anemia) Elevated random blood glucose level DORENE (obstructive sleep apnea) Fatty infiltration of liver Sleep apnea Hypersomnolence Localized swelling of right foot Obesity (BMI 30-39.9) Rash Congenital absence of left kidney Gallstones Asthma Shoulder pain Hypertension (Unknown) Home Medications Medication Instructions Recorded Last Taken Type loratadine 10 mg capsule 10 mg PO DAILY ALLERGIES Unknown History Allergy/AdvReac Type Severity Reaction Status Date / Time shellfish derived Allergy Severe Nausea/Vom/ Verified 10/09/25 19:05 Diarrhea Family History Mother Asthma Cancer basal cell Father No problems noted. Surgical History (Reviewed 10/10/25 @ :[address] Pratima Whitlock MD) History of umbilical hernia repair Hx of appendectomy Hx of foot surgery History of cholecystectomy History of wisdom tooth extraction History of hernia repair Social History household members: spouse Smoking Status: Never smoker alcohol intake: never substance use type: does not use what type of physical activity do you participate in: bicycling frequency: 1-2 times per week ROS ROS ED ROS Narrative see HPI EXAM Physical Exam Narrative Exam Narrative: Vital signs: Reviewed General: Alert and orientedx3. No acute distress HEENT: Head is normocephalic and atraumatic, sinuses nontender, pupils equal round and reactive. Nares are patent. Oropharynx and throat exams normal. Neck: Supple without lymphadenopathy nontender Cardiovascular: Regular rate and rhythm, no murmurs. No rubs or gallops. Normal S1 and S2. DP and PT pulses intact bilaterally. Respiratory: Clear to auscultation bilaterally. No wheezes, rales, rhonchi Abdominal: Soft and nontender. Normal bowel sounds. No guarding or rebound. Nonsurgical abdomen Extremities: Slight asymmetric swelling to the right calf compared to the left. Mild tenderness to palpation of the calf. No bruising. Normal range of motion. Normal sensation. Skin: Small scattered erythema to the right anterior martinez and calf. Does not extend above the knee. No induration, fluctuance or drainage. The rest of the physical exam is unremarkable Const Vital Signs: 10/09/25 19:02 10/09/25 19:05 Temperature 100.5 F H 100.5 F H Temperature Source Oral Oral Pulse Rate 138 H 138 H Respiratory Rate 28 H 28 H Blood Pressure 128/63 H 128/63 H Blood Pressure Mean 84 84 Pulse Ox 100 100 MDM MDM MDM Narrative Medical decision making narrative: Patient is a 39-year-old male presenting to the emergency department for concern of possible cellulitis. Patient was seen and examined. Patient arrives tachycardic, tachypneic and febrile. Saturating at percent on room air. Given the patient's history of cellulitis presenting this way this. Given the patient's abdominal discomfort, nausea and vomiting also concern for possible intra-abdominal source of infection. Given the patient's swelling of his right calf I will also obtain an ultrasound to rule out DVT. Given unknown source of infection at this time will start vancomycin and Zosyn. Fluid bolus given. Patient given Zofran for symptomatic control. Given Zofran for symptomatic and fever control. Blood cultures x 2 obtained prior to obtaining antibiotics. CBC with leukocytosis to 17.9 and normal hemoglobin. BMP with no significant normalities. Lactate elevated at 2.8. DVT ultrasound is negative for any thrombus. Chest x-ray reviewed by myself, no opacities, pneumothorax or wide mediastinum noted. Radiology read with no focal consolidations. CT abdomen pelvis shows mildly prominent left iliac and inguinal lymph nodes with adjacent stranding suggesting acute lymphadenitis. No other acute abnormalities noted. On my reevaluation of the patient. The erythema of the leg is slightly worse however still scattered. No streaking up the leg. With no other cause of his possible sepsis I would assume it is likely the developing cellulitis once again. Discussed the findings and the plan for admission with the patient and parents at bedside and they are all agreeable. Patient admitted to hospitalist, Dr. Castaneda, for further management. Clinical impression: Sepsis Cellulitis History & Record Review Discussion w/independent historian: Patient and Family Additional record(s) reviewed:: Prior inpatient record, Prior ED visit and Prior labs Lab Data Attestation: I reviewed the patient's lab results. Radiography Chest X-Ray - ED: 2 View, Read by ED Physician, Normal, No Acute Disease and No Infiltrates Discharge Plan Disposition Disposition: [facility] Discharge Date/Time: 10/09/25 23:56 D/C Safety Score for UGIB Assessment [place]-Blatchford Bleeding Score (GBS): Stratifies upper GI bleeding patients who are "low-risk" and candidates for outpatient management. Sex: Male Hemoglobin, BUN, Recent Vital Signs: Pulse Rate 138 Blood Pressure 128/63 Total Risk Score: 1 Score Interpretation: Score of 0: A GBS of 0 is a “Low Risk” GI bleed, and is highly sensitive (99.6% in a 2007 retrospective study) for predicting which patients did not require any “medical intervention”: blood transfusion, endoscopy, or surgery. This was confirmed in a 2009 [facility] study where patients with a score of 0 were actually discharged and had no GI bleeding mortality at 6 month followup Score above 0: A GBS greater than zero suggests a “High Risk” GI bleed that is likely to require “medical intervention”: transfusion, endoscopy, or surgery. A higher GBS also correlated with a higher likelihood of needing intervention Scores >/= 6 are associated with >50% risk of needing intervention D/C Safety Score for LGIB Assessment Assessment Tool: Readmission and adverse event risk in patients with acute lower GI bleeding. Sex: Male Hemoglobin and Recent Vital Signs: Pulse Rate 138 10/09/25 19:05 Blood Pressure 128/63 10/09/25 19:05 Probability of safe discharge: 99% Total Risk Score: 1 Score Interpretation: Probability Percentage of safe discharge (absence of rebleeding, blood transfusion, therapeutic intervention, 28 day readmission, or ) Score of 8 or below: Consider discharge, with appropriate precautions. Score of 9 or above: Discharge NOT recommended. Consider admission with further workup and resuscitation as necessary.
[2025-10-09] MEDS: 0.9% Normal Saline (1000mL) 1,000 ML 999 ML IV (19:50)
[2025-10-09] MEDS: Piperacil/Tazobactam 3.375 GM in 0.9% Normal Saline (50mL MB+) 50 ML IV (20:01)
[2025-10-09 20:06] LABS: Hematocrit 41.4 % (40-54); Hemoglobin 15.0 g/dL (13.0-16.5); Immature Granulocytes Count 0.120 X10^3/uL (0.0-0.0); Mean Corp Hgb Conc 36.2 g/dL (32-36); Mean Corpuscular Volume 87.3 fL (80-94); Mean Platelet Vol. 10.1 fl (6.2-12.0); NRBC Flagged by Analyzer 0 % (0-5); Platelet Count 384 K/mm3 (150-450); RBC Distribution Width CV 12.4 % (11.6-14.6); RBC Distribution Width SD 39.6 fl (35.1-43.9); Red Blood Count 4.74 M/mm3 (4.6-6.2); White Blood Count 17.9 K/mm3 (4.4-11.0)
--- NOTE | 2025-10-09 20:22 | RAD_ITS ---
PROCEDURE: CHEST PA AND LATERAL 10/09/2025 REASON FOR EXAM: FEVER, SOB TECHNIQUE: Procedure Code: RADCXR Modality: DX Procedure: CHEST PA AND LATERAL COMPARISON: 02/13/21 FINDINGS: No focal consolidation. No pleural effusion or pneumothorax. Cardiac silhouette is within normal limits. No acute fractures. RAD/Chest PA and Lateral IMPRESSION: No focal consolidations. Reading Location: [facility]
[2025-10-09 20:26] LABS: Prothrombin Time (Protime)PT. 15.0 SECONDS (11.7-14.9)
[2025-10-09 20:27] LABS: Partial Thromboplast Time 23.5 Seconds (24.1-36.2)
[2025-10-09 20:38] LABS: AST(SGOT) 31 U/L (<=37); Alanine Aminotransfer ALT/SGPT 43 U/L (<=46); Albumin, Serum 4.6 g/dL (3.5-5.0); Alkaline Phosphatase 81 U/L (40-129); Anion Gap 15 (5-15); BUN 13 mg/dL (4-19); BUN/Creat Ratio 11.9 RATIO (10-20); Calcium,Total 9.8 mg/dL (7.6-11.0); Carbon Dioxide 20.8 mmol/L (21.0-32.0); Chloride 103 mmol/L (98-108); Estimated Creatinine Clearance 145.15 ml/min (50-250); Globulin 2.6 g/dL (2.2-4.2); Glucose 121 mg/dL (70-99); Potassium 3.7 mmol/L (3.3-5.1)
[2025-10-09 20:54] LABS: Mucous, Urine 0 SEEN /hpf (<or=2+); Red Blood Cells-Urine 0 SEEN /hpf (0-5); Squamous Epithelial Cells - UA 0 SEEN /hpf (0-5)
--- NOTE | 2025-10-09 20:54 | ED.RN ---
IV was not infusing when returned from CT due to downstream occlusion. IV pump and tubing checked, pump restarted.
[2025-10-09 20:58] LABS: Color, Urine Yellow (Yellow); Glucose, Dipstick Normal (Normal); Ketone-Dipstick Negative (Negative); Leukocyte Esterase-Dipstick Negative /ul (Negative); Nitrite-Dipstick Negative (Negative); Occult Blood-Urine Negative /ul (Negative); Protein-Dipstick 30 mg/dl (Negative); Specific Gravity, Urine 1.005 (1.002-1.030); Urine Bilirubin Dipstick Negative (Negative)
[2025-10-09] MEDS: Vancomycin HCl 2,000 MG in 0.9% Normal Saline (500mL Bag) 500 ML 250 MG IV (21:05)
--- NOTE | 2025-10-09 22:54 | PCM.HP.STD ---
HPI - General General Date of Admission: 10/09/25 Date of Service: 10/09/25 Chief Complaint: F/C, N,V, RLE redness. 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 He denies any recent lesions or bites. Workup in the ED included T100.5, heart rate 138, BP 120/63, respiratory rate 28, 100% on room air with most recent repeat vitals T100 oral, heart rate 120, BP 137/61, respiratory rate 14, 97% on room air, CBC with WBC 17.9, hemoglobin 15, platelets 324 with left shift and lymphopenia, coags with PT 15, PTT 23.5, INR 1.2, CMP with carbon oxide 20.8, BUN/creatinine 13/1.08, GFR 90, glucose 121, lactic acid 2.8, urinalysis not marked appearing, CT abdomen and pelvis with IV contrast only with mildly prominent left iliac and inguinal lymph nodes with adjacent stranding suggestive of acute lymphadenitis, no evidence of any bowel inflammation, perforation or obstruction, 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 In the ED patient ministered 1 L normal saline, Tylenol 1000 mg p.o. x 1, Zofran 4 mg IV x 1, IV vancomycin 2000 mg x 1, IV Zosyn 3.375 g IV x 1. [facility] Medical History Screening for prostate cancer Dermatitis Localized skin mass, lump, or swelling Fatty liver CPAP (continuous positive airway pressure) dependence Non-smoker History of edema Diarrhea Discoloration of skin Venous insufficiency of both lower extremities TARAS (iron deficiency anemia) Elevated random blood glucose level DORENE (obstructive sleep apnea) Fatty infiltration of liver Sleep apnea Hypersomnolence Localized swelling of right foot Obesity (BMI 30-39.9) Rash Congenital absence of left kidney Gallstones Asthma Shoulder pain Hypertension (Unknown) Home Medications Medication Instructions Recorded Last Taken Type loratadine 10 mg capsule 10 mg PO DAILY ALLERGIES 02/13/21 Unknown History Allergy/AdvReac Type Severity Reaction Status Date / Time shellfish derived Allergy Severe Nausea/Vom/ Verified 10/09/25 19:05 Diarrhea Family History Mother Asthma Cancer basal cell Father No problems noted. Surgical History History of umbilical hernia repair Hx of appendectomy Hx of foot surgery History of cholecystectomy History of wisdom tooth extraction History of hernia repair Social History household members: spouse Smoking Status: Never smoker alcohol intake: never substance use type: does not use what type of physical activity do you participate in: bicycling frequency: 1-2 times per week ROS ROS Narrative Admission Review of Systems: CONSTITUTIONAL: No weight loss, + fever, chills, weakness or fatigue. HEENT: Eyes: No visual loss, blurred vision, double vision or yellow sclerae. Ears, Nose, Throat: No hearing loss, sneezing, congestion, runny nose or sore throat. SKIN: + RLE redness/not circumferential but random spots, warm to touch. CARDIOVASCULAR: No chest pain, chest pressure or chest discomfort, palpitations, edema, orthopnea, syncopal events. RESPIRATORY: No shortness of breath, cough or sputum, wheezing, hemoptysis. GASTROINTESTINAL: + anorexia, nausea, vomiting, No diarrhea, abdominal pain, melena, BRBPR. GENITOURINARY: No dysuria, frequency, urgency or retention. NEUROLOGICAL: No headache, dizziness, syncope, paralysis, ataxia, numbness or tingling in the extremities, focal weakness, change in bowel or bladder control, seizure. MUSCULOSKELETAL: + muscle, back pain, joint pain or stiffness. HEMATOLOGIC: + Hx prior anemia. No marked history of easy bleeding or bruising. LYMPHATICS: No enlarged nodes. No history of splenectomy. PSYCHIATRIC: No history of depression or anxiety. ENDOCRINOLOGIC: No reports of sweating, cold or heat intolerance. No polyuria or polydipsia. ALLERGIES: + history of asthma, rhinitis. Vital Signs Vital Signs Vital Signs: 10/09/25 19:02 10/09/25 19:05 10/09/25 19:31 Temperature 100.5 F H 100.5 F H 100.5 F H Temperature Source Oral Oral Oral Pulse Rate 138 H 138 H 123 H Respiratory Rate 28 H 28 H 18 Blood Pressure 128/63 H 128/63 H 96/46 L Blood Pressure Mean 84 84 62 Pulse Ox 100 100 98 Oxygen Delivery Method Room Air 10/09/25 20:05 10/09/25 20:07 10/09/25 21:00 Temperature Temperature Source Pulse Rate 120 H 120 H Respiratory Rate 16 14 Blood Pressure 127/77 H 137/61 H Blood Pressure Mean 93 86 Pulse Ox 98 97 Oxygen Delivery Method Room Air Room Air 10/09/25 21:36 10/09/25 21:56 Temperature 100 F H Temperature Source Oral Pulse Rate 120 H Respiratory Rate 18 Blood Pressure 135/67 H Blood Pressure Mean 89 Pulse Ox 98 Oxygen Delivery Method Room Air Weight Weight: 328 lb 14.4 oz Body Mass Index (BMI) 40.0 Physical Exam Narrative Physical Examination: General: Awake, alert, oriented x 3 and cooperative, seated upright in the ED bed, fatigued appearing otherwise no acute distress, notes feeling improved since intial ED arrival. Skin: Normal color, normal turgor, no icterus, no cyanosis except for skin grafting to the right plantar medial foot as well as various regions of erythema noncircumferential from the R mid martinez to the knee region, warm to touch, mild edema compared to LLE (acute on chronic) in addition to a small bump along the anterior martinez which she notes has been there for some time as he hit his martinez but did not have it evaluated at that time. HEENT: AT/NC, EOMI, PERRLA, mildly dry MM, no carotid bruits or JVD noted. Lungs: CTA bilaterally, moderate effort, mild decrease BL bases, mildly increased RR, no rales, ronchi or wheezing. Heart: Mildly tachycardic with regular rhythm; no gallop, rub audible. Abdomen: Soft, morbidly obese, NTTP, ND, mildly hyperactive BS, no appreciated HSM. Extremities: No cyanosis, no clubbing, see skin. Neurological: Patient awake, alert, oriented as noted, cognitive function intact; pupils equally reactive to light and accommodation, cranial nerves grossly normal, moving all 4 extremities, no focal deficits, strength mildly to moderately decreased secondary to acute presentation complaints but improving. Psychiatric: Affect appears fatigued, no acute evidence of depressive or anxiety feelings. Results Lab / Micro Data 10/09/25 19:18 10/09/25 19:18 Labs: Laboratory Results - last 24 hr 10/09/25 19:18: WBC 17.9 H, RBC 4.74, Hgb 15.0, Hct 41.4, MCV 87.3, MCH 31.6, MCHC 36.2 H, RDW Std Deviation 39.6, RDW Coeff of Geoff 12.4, Plt Count 384, MPV 10.1, Immature Gran % (Auto) 0.700, Neut % (Auto) 91.6 H, Lymph % (Auto) 3.7 L, [place] % (Auto) 3.4, Eos % (Auto) 0.4, Baso % (Auto) 0.2, Absolute Neuts (auto) 16.4 H, Absolute Lymphs (auto) 0.66 L, Nucleated RBC % 0, PT 15.0 H, INR 1.2, APTT 23.5 L, Sodium 139, Potassium 3.7, Chloride 103, Carbon Dioxide 20.8 L, Anion Gap 15, BUN 13, Creatinine 1.08, Estim Creat Clear Calc 145.15, Est GFR (MDRD) Non-Af 90, BUN/Creatinine Ratio 11.9, Glucose 121 H, Lactic Acid 2.8 H*, Calcium 9.8, Total Bilirubin 0.94, AST 31, ALT 43, Alkaline Phosphatase 81, Total Protein 7.2, Albumin 4.6, Globulin 2.6, Albumin/Globulin Ratio 1.8 10/09/25 20:49: Urine Color Yellow, Urine Clarity Sl. Cloudy, Urine pH 7.0, Ur Specific [place] 1.005, Urine Protein 30 H, Urine Glucose (UA) Normal, Urine Ketones Negative, Urine Occult Blood Negative, Urine Nitrite Negative, Urine Bilirubin Negative, Urine Urobilinogen 1 H, Ur Leukocyte Esterase Negative, Urine RBC 0 SEEN, Urine WBC 0-5 SEEN, Ur Squamous Epith Cells 0 SEEN, Urine Bacteria 1+, Urine Mucus 0 SEEN Micro: Microbiology 10/09/25 19:54 Mucosa - Nose SARS-CoV-2, Influenza & RSV (PCR) - Final Imaging Radiology Impression Abdomen/Pelvis CT 10/09/25 19:19 IMPRESSION: 1. Mildly prominent left iliac and inguinal lymph nodes with adjacent stranding, suggesting acute lymphadenitis. 2. No signs of bowel inflammation, perforation or obstruction. 3. 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 Reading Location: [facility] Venous Duplex 10/09/25 19:23 IMPRESSION: No acute occlusive deep vein thrombosis. Reading Location: [facility] Chest X-Ray 10/09/25 20:22 IMPRESSION: No focal consolidations. 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 #1. Acute Right Lower Extremity Cellulitis with notable tachycardia, fever, leukocytosis, mild lactic acidosis but no endorgan damage: Given VS improvement with ED interventions will admit to MS telemetry and may consider de-escalating off telemetry in the next 12-24 hours, will continue to aggressively hydrate, will maintain on BSA with IV vancomycin and IV Zosyn with de-escalation as able, MRSA screen requested, plan repeat CBC in AM, continue affected extremity elevation above heart when seated and in bed, monitor erythema outline with VS checks, PRN pain/antiemetic regimen. #2. Incidentally noted mildly prominent left iliac, inguinal lymph nodes with adjacent stranding, questionable acute lymphadenitis: CT abdomen and pelvis with noted prominent left iliac and inguinal lymph nodes with adjacent stranding, notes suggestive of possible acute lymphadenitis, no complaints abdominal pain delaney however does have nausea and vomiting but this is consistent with his previous episodes of cellulitis and especially given #1 may be the primary etiology, maintained on BSA as noted above, may investigate further if concerns arise. #3. Chronic asthma with allergic rhinitis: Not on any chronic inhalers, will have PRN albuterol, continue patient home loratadine. #4. Hypertension: Judiciously hydrating given presentation, previously been on diuretic, not currently listed on a regimen, clarified to be certain, PRN hydralazine. #5. Chronic Kidney Disease Stage II per GFR trending with CT imaging notable for potential congenital absent left kidney and left seminal vesicles: Admission BUN/Cr 13/1.08, GFR 90, normally within range of stage II for GFR, baseline renal function primarily 0.9-1.1, repeat BMP in AM. #6. Melanocytic nevus: Patient following w/ Dr. Jackson, nevus on the sole of R foot since , biopsy done on 10/17/2021 which showed Melanoma with PET/CT on 11/18/2021 was negative. 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 Currently consider admission, encourage continued follow-up with dermatology as previously arranged. #7. Morbid Obesity: Weight loss and lifestyle changes encouraged. #8. DORENE: CPAP nightly. #9. DVT prophylaxis: Lovenox. Charges/Coding Visit Charges Inpatient E&M: 54426 Init Hosp L3 D/C Safety Score for UGIB Assessment [place]-Blatchford Bleeding Score (GBS): Stratifies upper GI bleeding patients who are "low-risk" and candidates for outpatient management. Sex: Male Hemoglobin, BUN, Recent Vital Signs: Hgb 15.0 g/dL (13.0-16.5) 10/09/25 19:18 BUN 13 mg/dL (4-19) 10/09/25 19:18 Pulse Rate 120 Blood Pressure 135/67 Total Risk Score: 1 Score Interpretation: Score of 0: A GBS of 0 is a “Low Risk” GI bleed, and is highly sensitive (99.6% in a 2007 retrospective study) for predicting which patients did not require any “medical intervention”: blood transfusion, endoscopy, or surgery. This was confirmed in a 2009 [facility] study where patients with a score of 0 were actually discharged and had no GI bleeding mortality at 6 month followup Score above 0: A GBS greater than zero suggests a “High Risk” GI bleed that is likely to require “medical intervention”: transfusion, endoscopy, or surgery. A higher GBS also correlated with a higher likelihood of needing intervention Scores >/= 6 are associated with >50% risk of needing intervention D/C Safety Score for LGIB Assessment Assessment Tool: Readmission and adverse event risk in patients with acute lower GI bleeding. Sex: Male Hemoglobin and Recent Vital Signs: Hgb 15.0 g/dL (13.0-16.5) 10/09/25 19:18 Pulse Rate 120 10/09/25 21:56 Blood Pressure 135/67 10/09/25 21:56 Probability of safe discharge: 99% Total Risk Score: 1 Score Interpretation: Probability Percentage of safe discharge (absence of rebleeding, blood transfusion, therapeutic intervention, 28 day readmission, or ) Score of 8 or below: Consider discharge, with appropriate precautions. Score of 9 or above: Discharge NOT recommended. Consider admission with further workup and resuscitation as necessary.
[2025-10-09 22:59] LABS: Reflex Lactate? Y
--- OUTSIDE RECORDS SUMMARY | 2025-10-09 23:13 | XMS RPT_ITS | CCD ---
Author Organization [facility] Care Team Providers Care Medical Coding Instructor Name Role Phone Faheem MONTESINOS, Drew Mcclain Primary Care Provider Manuel HUITRON/CHBRiaz Unavailable Pippa LAL, Wendy Unavailable Unavailable Trinidad Weems MD Unavailable [phone] SELF, SELF Referring Unavailable PUCKETT LINETTE Attending [...] reactions to drug 2 Nausea and Vomiting [facility] (12 sources) Shellfish; Translations: [shellfish derived] Allergy to substance 2 GI Upset [facility] Medications Current Medications Medication Drug Class(es) [...] Polymyxin-class Antibacterial Start: 02-18-2022 bacitracin-polymy roula b [id number] UNIT/GM Ointment Indications: Follow up , S/P [...] will like to go to [facility] in [place].Excision biopsy on 12/26/2021 showed R foot Melanocytic [...] Vis itoandrew 07-11-2025 Internal Medicine Office Visit [facility] [address] [place] [address] [place] [address] OFFICE VISIT Date of Service: 07/11/25 MR#: [id number] Acct: [id number] Name: RIAZ DIOP Rep #: [id number] [...] M FU Chief Complaint: 2 M FU 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 Normal [facility] Internal Medicine Office Vis sherry 05-09-2025 Internal Medicine Office Visit [facility] [place] [address] [place] [address] OFFICE VISIT Date of Service: 05/09/25 MR#: [id number] Acct: [id number] Name: RIAZ DIOP Rep #: [id number] : 1985 Provider: Dr. Drew mitchell MD Age/Sex: 39/M Location: [facility] Status: Signed Intake Vital Signs 02/07/25 13:41 [...] been monitoring his blood pressures at home [facility] Medical History (Updated 05/09/25 @ 16:20 by [...] Neuro Neuro (more content not included)... 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 Needs both meds refilled. [facility] Medical History Localized skin mass, lump, or [...] shortness of (more content not included)... Normal [facility] Absolute lymphocyte countOrd ered By: Armond Guerrero on 01-31-2025 Lymphocytes Auto (Unsp spec) [#/Vol] 2.14 10*3/uL 0.83-4.51 [facility] Absolute neutrophil countOrd ered By: Armond Guerrero on 01-31-2025 Neutrophils (Bld) [#/Vol] 5.4 10*3/uL 2.0-7.7 [facility] Anion gap in Serum or Plasma Ordered By: Armond Guerrero on 01-31-2025 Anion gap [Moles/Vol] 14 mmol/L 5- [facility] Automated lymphocyte count a s percentage of total leukocytesOrdered By: Armond Guerrero on 01-31-2025 Lymphocytes/100 WBC Auto (Unsp spec) 25.8 % [facility] BUN/creatinine ratioOrdered By: Armond Guerrero on 01-31-2025 Urea nitrogen/Creatinine [Mass ratio] 10.6 mg/mg - [facility] Basic Metabolic Profile (BMP )on 01-31-2025 BUN/CRE 10.6 RATIO Normal 09-17 [facility] Comment on above: Performed By: #### L 100.0100, L500.2500 #### [facility] [address] [place], [address] Calcium [Mass/Vol] 9.5 mg/dL Normal 7.6-11.0 [facility] Comment on above: Performed By: #### L 100.0100, L500.2500 #### [facility] [address] [place], [address] Chloride [Moles/Vol] 101 mmol/L Normal 98-108 [facility] Comment on above: Performed By: #### L 100.0100, L500.2500 #### [facility] [address] [place], [address] CO2 [Moles/Vol] 21.4 mmol/L Normal 21.0-32.0 [facility] Comment on above: Performed By: #### L 100.0100, L500.2500 #### [facility] [address] [place], [address] Creatinine [Mass/Vol] 1.13 mg/dL Normal 0.70-1.20 [facility] Comment on above: Performed By: #### L 100.0100, L500.2500 #### [facility] [address] [place], [address] ECRCL 136.73 ml/min Normal 50-250 [facility] Comment on above: Performed By: #### L 100.0100, L500.2500 #### [facility] [address] [place], [address] GAP 14 Normal 5-15 [facility] Comment on above: Performed By: #### L 100.0100, L500.2500 #### [facility] [address] [place], [address] GFR/1.73 sq M.predicted among non-blacks MDRD (S/P/Bld) [Vol rate/Area] 85 mL/min/{1.73_m2} Normal >60 [facility] Comment on above: Result Comment: mL/m in/1.73m2 CKD-EPI Creatinine Equation (2020) Performed By: #### L 100.0100, L500.2500 #### [facility] [address] [place], [address] Glucose [Mass/Vol] 99 mg/dL Normal 70-99 [facility] Comment on above: Performed By: #### L 100.0100, L500.2500 #### [facility] [address] [place], [address] Potassium [Moles/Vol] 3.6 mmol/L Normal 3.3-5.1 [facility] Comment on above: Performed By: #### L 100.0100, L500.2500 #### [facility] [address] [place], [address] Sodium [Moles/Vol] 137 mmol/L Normal 133-145 [facility] Comment on above: Performed By: #### L 100.0100, L500.2500 #### [facility] [address] [place], [address] Urea nitrogen [Mass/Vol] 12 mg/dL Normal 4-19 [facility] Comment on above: Performed By: #### L 100.0100, L500.2500 #### [facility] [address] [place], [address] Basophil percentageOrdered B y: Armond Le on 01-31-2025 Basophils/100 WBC (Bld) 1.1 % High 0-1 [facility] CBC W/Diff, Automatedon Absolute Lymph 2.14 X10 3/uL Normal 0.83-4.51 [facility] Comment on above: Performed By: #### L 100.0100, L500.2500 #### [facility] [address] [place], [address] Absolute Neut 5.4 X10 3/uL Normal 2.0-7.7 [facility] Comment on above: Performed By: #### L 100.0100, L500.2500 #### [facility] [address] [place], [address] Basophils/100 WBC (Bld) 1.1 % High 0-1 [facility] Comment on above: Performed By: #### L 100.0100, L500.2500 #### [facility] [address] [place] [place], [address] Eosinophils/100 WBC (Bld) 2.1 % Normal 0-5 [facility] Comment on above: Performed By: #### L 100.0100, L500.2500 #### [facility] [address] [place], [address] Erythrocyte distribution width (RBC) [Ratio] 12.2 % Normal 11.6-14.6 [facility] Comment on above: Performed By: #### L 100.0100, L500.2500 #### [facility] [address] [place], [address] Hematocrit (Bld) [Volume fraction] 45.5 % Normal 40-54 [facility] Comment on above: Performed By: #### L 100.0100, L500.2500 #### [facility] [address] [place], [address] Hemoglobin (Bld) [Mass/Vol] 16.2 g/dL Normal 13.0-16.5 [facility] Comment on above: Performed By: #### L 100.0100, L500.2500 #### [facility] [address] [place], [address] IG% 0.100 Normal 0.0-0.9 [facility] Comment on above: Result Comment: IG% - Immature Granulocytes (promyelocytes, myelocytes and metamyelocytes) > 1% indicates that a LEFT SHIFT is Present. Performed By: #### L 100.0100, L500.2500 #### [facility] [address] [place], [address] Lymphocytes/100 WBC (Bld) 25.8 % Normal 19-41 [facility] Comment on above: Performed By: #### L 100.0100, L500.2500 #### [facility] [address] [place], [address] MCH (RBC) [Entitic mass] 31.3 pg Normal 27.0-32.0 [facility] Comment on above: Performed By: #### L 100.0100, L500.2500 #### [facility] [address] [place], [address] MCHC (RBC) [Mass/Vol] 35.6 g/dL Normal 32-36 [facility] Comment on above: Performed By: #### L 100.0100, L500.2500 #### [facility] [address] [place], [address] MCV (RBC) [Entitic vol] 87.8 fL Normal 80-94 [facility] Comment on above: Performed By: #### L 100.0100, L500.2500 #### [facility] [address] [place], [address] Monocytes/100 WBC (Bld) 5.4 % Normal 0-10 [facility] Comment on above: Performed By: #### L 100.0100, L500.2500 #### [facility] [address] [place], [address] Neutrophils/100 WBC (Bld) 65.5 % Normal 47-70 [facility] Comment on above: Performed By: #### L 100.0100, L500.2500 #### [facility] [address] [place], [address] Nucleated RBC (Bld) [#/Vol] 0 10*3/uL Normal 0-5 [facility] Comment on above: Performed By: #### L 100.0100, L500.2500 #### [facility] [address] [place], [address] Platelet mean volume (Bld) [Entitic vol] 10.0 fL Normal 6.2-12.0 [facility] Comment on above: Performed By: #### L 100.0100, L500.2500 #### [facility] [address] [place], [address] Platelets (Bld) [#/Vol] 455 10*3/uL High 150-450 [facility] Comment on above: Performed By: #### L 100.0100, L500.2500 #### [facility] [address] [place], [address] RBC (Bld) [#/Vol] 5.18 10*6/uL Normal 4.6-6.2 [facility] Comment on above: Performed By: #### L 100.0100, L500.2500 #### [facility] [address] [place], [address] RDW SD 39.1 fl Normal 35.1-43.9 [facility] Comment on above: Performed By: #### L 100.0100, L500.2500 #### [facility] [address] [place], [address] WBC (Bld) [#/Vol] 8.3 10*3/uL Normal 4.4-11.0 [facility] Comment on above: Performed By: #### L 100.0100, L500.2500 #### [facility] [address] [place], [address] Carbon dioxide, total [Moles /volume] in Central venous bloodOrdered By: Armond Guerrero on 01-31-2025 CO2 [Moles/Vol] 21.4 mmol/L 21.0-32.0 [facility] Chloride assayOrdered By: Dago Guerrero on 01-31-2025 Chloride [Moles/Vol] 101 mmol/L 98-108 [facility] Emergency Department Summary on 01-31-2025 Emergency Department Summary [facility] Medical Records Department [address] [place] [address] Emergency Department Summary 01/31/25 MR#: [id number] Acct: [id number] Name: RIAZ DIOP Rep #: [id number] : 1985 39 From: Ruiz Schwartz MD [...] is audrey (more content not included)... Normal [facility] Eosinophil percentageOrdered By: Armond Guerrero on 01-31-2025 Eosinophils/100 WBC (Bld) 2.1 % 0-5 [facility] Erythrocyte distribution wid th ratioOrdered By: Armond Guerrero on 01-31-2025 Erythrocyte distribution width (RBC) [Ratio] 12.2 % 11.6-14.6 [facility] Erythrocyte distribution wid th standard deviationOrdered By: Armond Guerrero on 01-31-2025 Erythrocyte distribution width (RBC) [Ratio] 39.1 fl 35.1-43.9 [facility] Glomerular filtration rate ( GFR) estimation/1.73 sq m using serum, plasma, or whole bOrdered By: Armond Guerrero on 01-31-2025 GFR/1.73 sq M.predicted among non-blacks MDRD (S/P/Bld) [Vol rate/Area] 85 mL/min/{1.73_m2} >60 [facility] Comment on above: mL/min/1.73m2 CKD-EP I Creatinine Equation (2020) Hematocrit Auto (Bld) [Volum e fraction]Ordered By: Armond Guerrero on 01-31-2025 Hematocrit (Bld) [Volume fraction] 45.5 % 40-54 [facility] Hemoglobin measurementOrdere d By: Armond Guerrero on 01-31-2025 Hemoglobin (Bld) [Mass/Vol] 16.2 g/dL 13.0-16.5 [facility] Immature granulocytes/100 WB C Auto (Bld)Ordered By: Armond Guerrero on 01-31-2025 Immature granulocytes/100 WBC (Bld) 0.100 % 0.0-0.9 [facility] Comment on above: IG% - Immature Granu locytes (promyelocytes, myelocytes and metamyelocytes) > 1% indicates that a LEFT SHIFT is Present. MCV (mean corpuscular volume ) determinationOrdered By: Armond Guerrero on 01-31-2025 MCV (RBC) [Entitic vol] 87.8 fL 80-94 [facility] Mean corpuscular hemoglobin (MCH) determinationOrdered By: Armond Guerrero on 01-31-2025 MCH (RBC) [Entitic mass] 31.3 pg 27.0-32.0 [facility] Mean corpuscular hemoglobin concentration (MCHC) determinationOrdered By: Armond Guerrero on 01-31-2025 MCHC (RBC) [Mass/Vol] 35.6 g/dL 32-36 [facility] Mean platelet volume determi nationOrdered By: Armond Guerrero on 01-31-2025 Platelet mean volume (Bld) [Entitic vol] 10.0 fL 6.2-12.0 [facility] Monocyte percentageOrdered B y: Armond Guerrero on 01-31-2025 Monocytes/100 WBC (Bld) 5.4 % 0-10 [facility] Neutrophil percentageOrdered By: Armond Guerrero on 01-31-2025 Neutrophils/100 WBC (Bld) 65.5 % 47-70 [facility] Nucleated red blood cell per centageOrdered By: Armond Guerrero on 01-31-2025 Nucleated RBC/100 WBC (Bld) [Ratio] 0 % 0-5 [facility] Platelet countOrdered By: Dago Guerrero on 01-31-2025 Platelets (Bld) [#/Vol] 455 10*3/uL High 150-450 [facility] Potassium measurement (mass/ volume)Ordered By: Armond Guerrero on 01-31-2025 Potassium (Unsp spec) [Mass/Vol] 3.6 mmol/L 3.3-5.1 [facility] RBC Auto (Bld) [#/Vol]Ordere d By: Armond Guerrero on 01-31-2025 RBC (Bld) [#/Vol] 5.18 10*6/uL 4.6-6.2 [facility] Serum creatinine measurement (mass/volume)Ordered By: Armond Guerrero on 01-31-2025 Creatinine [Mass/Vol] 1.13 mg/dL 0.70-1.20 [facility] Serum glucose measurement (m ass/volume)Ordered By: Armond Guerrero on 01-31-2025 Glucose [Mass/Vol] 99 mg/dL 70-99 [facility] Serum or plasma calcium ani urement (mass/volume)Ordered By: Armond Guerrero on 01-31-2025 Calcium [Mass/Vol] 9.5 mg/dL 7.6-11.0 [facility] Serum or plasma urea nitroge n measurement (mass/volume)Ordered By: Armond Guerrero on 01-31-2025 Urea nitrogen [Mass/Vol] 12 mg/dL 4-19 [facility] Sodium levelOrdered By: Armond Guerrero on 01-31-2025 Sodium [Moles/Vol] 137 mmol/L 133-145 [facility] White blood cell (WBC) count Ordered By: Armond Guerrero on 01-31-2025 WBC (Bld) [#/Vol] 8.3 10*3/uL 4.4-11.0 [facility] CNOVon 05-19-2024 CNOV Office Visit (UCTR ) RIAZ DIOP ([id number]) 1985 Date Time Provider Department 05/19/24 9:30 AM VINNIE HERNANDEZ [facility] During your visit today, we recorded [...] Status:Closed by VINNIE HERNANDEZ on 05/19/24 Normal [facility] Absolute lymphocyte countOrd ered By: Drew Mayen on 01-12-2024 Lymphocytes Auto (Unsp spec) [#/Vol] 1.62 10*3/uL 0.83-4.51 [facility] Automated lymphocyte count a s percentage of total leukocytesOrdered By: Drew Mayen on 01-12-2024 Lymphocytes/100 WBC Auto (Unsp spec) 25.2 % 19-41 [facility] Basophil percentageOrdered B y: Drew Mayen on 01-12-2024 Basophils/100 WBC (Bld) 0.8 % 0-1 [facility] Chloride [Moles/Vol] 110 mmol/L 98-107 [facility] Eosinophils/100 WBC (Bld) 3.1 % 0-5 [facility] Glucose [Mass/Vol] 112 mg/dL 74-106 [facility] Comment on above: Fasting Glucose resu lt from 100 to 125 mg/dL suggests IMPAIRED HOMEOSTASIS per A.D.A. criteria. Hemoglobin (Bld) [Mass/Vol] 14.0 g/dL 13.0-16.5 [facility] Monocytes/100 WBC (Bld) 5.8 % 0-10 [facility] Neutrophils (Bld) [#/Vol] 4.2 10*3/uL 2.0-7.7 [facility] Neutrophils/100 WBC (Bld) 64.5 % 47-70 [facility] Potassium [Moles/Vol] 4.1 mmol/L 3.5-5.1 [facility] Sodium [Moles/Vol] 144 mmol/L 136-145 [facility] WBC (Bld) [#/Vol] 6.4 10*3/uL 4.4-11.0 [facility] Determination of erythrocyte mean corpuscular volume (MCV)Ordered By: Drew Mayen on 01-12-2024 MCV (RBC) [Entitic vol] 90.9 fL 80-94 [facility] Erythrocyte distribution wid th ratioOrdered By: [facility]eltonmirella Randallcorinne on 01-12-2024 Erythrocyte distribution width (RBC) [Ratio] 12.5 % 11.6-14.6 [facility] Erythrocyte distribution wid th standard deviationOrdered By: marleniholly hillmirella Mayen on 01-12-2024 Erythrocyte distribution width (RBC) [Entitic vol] 41.3 fL 35.1-43.9 [facility] Hematocrit Auto (Bld) [Volum e fraction]Ordered By: Drew Mayen on 01-12-2024 Hematocrit (Bld) [Volume fraction] 41.0 % 40-54 [facility] Immature granulocytes/100 WB C Auto (Bld)Ordered By: christopher Mayen on 01-12-2024 Immature granulocytes/100 WBC (Bld) 0.600 % 0.0-0.9 [facility] Comment on above: IG% - Immature Granu locytes (promyelocytes, myelocytes and metamyelocytes) > 1% indicates that a LEFT SHIFT is Present. Laboratory - Chemistry and C hemistry - challengeOrdered By: Drew Mayen on 01-12-2024 CO2 [Moles/Vol] 27.0 mmol/L 21.0-32.0 [facility] Urea nitrogen/Creatinine [Mass ratio] 7.3 mg/mg 10-20 [facility] - Hematology and Cell countsOrdered By: Drew Mayen on 01-12-2024 MCH (RBC) [Entitic mass] 31.0 pg 27.0-32.0 [facility] MCHC (RBC) [Mass/Vol] 34.1 g/dL 32-36 [facility] Nucleated RBC/100 WBC (Bld) [Ratio] 0 % 0-5 [facility] Platelet mean volume (Bld) [Entitic vol] 10.6 fL 6.2-12.0 [facility] Platelets (Bld) [#/Vol] 362 10*3/uL 150-450 [facility] No Panel InformationOrdered By: Drew Mayen on 01-12-2024 Estimated GFR (MDRD) Amer 97 mL/min >60 [facility] Comment on above: GFR Calc Estimated GFR (MDRD) Non-Af Amer 80 mL/min >60 [facility] Comment on above: Non- GFR Calc RBC Auto (Bld) [#/Vol]Ordere d By: Drew Mayen on 01-12-2024 RBC (Bld) [#/Vol] 4.51 10*6/uL 4.6-6.2 [facility] Serum or plasma calcium ani urement (mass/volume)Ordered By: Drew Mayen on 01-12-2024 Calcium [Mass/Vol] 8.9 mg/dL 8.5-10.1 [facility] Serum or plasma creatinine m easurement (mass/volume)Ordered By: Drew Mayen on 01-12-2024 Creatinine [Mass/Vol] 1.09 mg/dL 0.70-1.30 [facility] Comment on above: The validity of the calculated GFR & GFRAA in patients over 70 years has not been determined. Clinical correlation is essential. Serum or plasma urea nitroge n measurement (mass/volume)Ordered By: Drew Mayen on 01-12-2024 Urea nitrogen [Mass/Vol] 8 mg/dL 7-18 [facility] Thin prep Papanicolaou smear with manual screeningOrdered By: Drew Mayen on 01-12-2024 Thin prep Papanicolaou smear with manual screening 7 5-15 [facility] No Panel InformationOrdered By: Trinidad Nicolas on 12-06-2023 Nasal Screen MRSA/MSSA [facility] Nasal Screen MRSA/MSSA [facility] Absolute lymphocyte countOrd ered By: Joann Cheng on 11-17-2023 Lymphocytes Auto (Unsp spec) [#/Vol] 1.11 10*3/uL 0.83-4.51 [facility] Basophil percentageOrdered B y: Joann Cheng on 11-17-2023 Basophils/100 WBC (Bld) 0.3 % 0-1 [facility] Chloride [Moles/Vol] 109 mmol/L 98-107 [facility] Eosinophils/100 WBC (Bld) 0.5 % 0-5 [facility] Glucose [Mass/Vol] 132 mg/dL 74-106 [facility] Comment on above: Fasting Glucose resu lt greater than or equal to 126 mg/dL suggests DIABETES MELLITUS per A.D.A. criteria. Neutrophils (Bld) [#/Vol] 5.6 10*3/uL 2.0-7.7 [facility] Neutrophils/100 WBC (Bld) 76.6 % 47-70 [facility] Potassium [Moles/Vol] 3.9 mmol/L 3.5-5.1 [facility] Sodium [Moles/Vol] 142 mmol/L 136-145 [facility] WBC (Bld) [#/Vol] 7.3 10*3/uL 4.4-11.0 [facility] Blood erythrocytes count (nu mber/volume)Ordered By: Joann Cheng on 11-17-2023 RBC (Bld) [#/Vol] 4.01 10*6/uL 4.6-6.2 [facility] Blood hemoglobin measurement (mass/volume)Ordered By: Joann Cheng on 11-17-2023 Hemoglobin (Bld) [Mass/Vol] 12.6 g/dL 13.0-16.5 [facility] Blood lymphocytes/100 leukoc ytesOrdered By: Joann Cheng on 11-17-2023 Lymphocytes/100 WBC (Bld) 15.2 % 19-41 [facility] Blood monocytes/100 leukocyt esOrdered By: Joann Cheng on 11-17-2023 Monocytes/100 WBC (Bld) 7.1 % 0-10 [facility] Blood platelet mean volumeOr dered By: Joann Cheng on 11-17-2023 Platelet mean volume (Bld) [Entitic vol] 10.0 fL 6.2-12.0 [facility] Determination of erythrocyte mean corpuscular volume (MCV)Ordered By: Joann Cheng on 11-17-2023 MCV (RBC) [Entitic vol] 92.8 fL 80-94 [facility] Hematocrit Auto (Bld) [Volum e fraction]Ordered By: Joann Cheng on 11-17-2023 Hematocrit (Bld) [Volume fraction] 37.2 % 40-54 [facility] - Chemistry and C hemistry - challengeOrdered By: Joann Cheng on 11-17-2023 CO2 [Moles/Vol] 26.0 mmol/L 21.0-32.0 [facility] Urea nitrogen/Creatinine [Mass ratio] 8.2 mg/mg 09-17 [facility] - Hematology and Cell countsOrdered By: Joann Cheng on 11-17-2023 Erythrocyte distribution width (RBC) [Entitic vol] 42.5 fL 35.1-43.9 [facility] Erythrocyte distribution width (RBC) [Ratio] 12.5 % 11.6-14.6 [facility] Immature granulocytes/100 WBC (Bld) 0.300 % 0.0-0.9 [facility] Comment on above: IG% - Immature Granu locytes (promyelocytes, myelocytes and metamyelocytes) > 1% indicates that a LEFT SHIFT is Present. MCH (RBC) [Entitic mass] 31.4 pg 27.0-32.0 [facility] Nucleated RBC/100 WBC (Bld) [Ratio] 0 % 0-5 [facility] MCHC Auto (RBC) [Mass/Vol]Or dered By: Joann Cheng on 11-17-2023 MCHC (RBC) [Mass/Vol] 33.9 g/dL 32-36 [facility] No Panel InformationOrdered By: Joann Cheng on 11-17-2023 Estimated Creatinine Clearance Calc 125.48 ml/min [facility] Estimated GFR (MDRD) Amer 110 mL/min >60 [facility] Comment on above: GFR Calc Estimated GFR (MDRD) Non-Af Amer 91 mL/min >60 [facility] Comment on above: Non- GFR Calc Platelets bldOrdered By: Nereyda rosaандрей Prosper on 11-17-2023 Platelets (Bld) [#/Vol] 319 10*3/uL 150-450 [facility] Serum or plasma calcium ani urement (mass/volume)Ordered By: Joann Cheng on 11-17-2023 Calcium [Mass/Vol] 7.6 mg/dL 8.5-10.1 [facility] Serum or plasma creatinine m easurement (mass/volume)Ordered By: Joann Cheng on 11-17-2023 Creatinine [Mass/Vol] 0.98 mg/dL 0.70-1.30 [facility] Comment on above: The validity of the calculated GFR & GFRAA in patients over 70 years has not been determined. Clinical correlation is essential. Serum or plasma urea nitroge n measurement (mass/volume)Ordered By: Joann Cheng on 11-17-2023 Urea nitrogen [Mass/Vol] 8 mg/dL 7-18 [facility] Thin prep Papanicolaou smear with manual screeningOrdered By: Joann Cheng on 11-17-2023 Thin prep Papanicolaou smear with manual screening 7 5-15 [facility] Absolute lymphocyte countOrd ered By: Antonio Ferguson on 11-16-2023 Lymphocytes Auto (Unsp spec) [#/Vol] 1.22 10*3/uL 0.83-4.51 [facility] Basophil percentageOrdered B y: Antonio Ferguson on 11-16-2023 Basophil percentage 0 SEEN /hpf 0-5 [facility] Basophils/100 WBC (Bld) 0.2 % 0-1 [facility] Bilirubin [Mass/Vol] 0.70 mg/dL 0.20-1.00 [facility] Comment on above: For patients on eltr ombopag therapy, use of Dimension [place] TBIL is not recommended. Chloride [Moles/Vol] 108 mmol/L 98-107 [facility] Eosinophils/100 WBC (Bld) 0.1 % 0-5 [facility] Glucose [Mass/Vol] 115 mg/dL 74-106 [facility] Comment on above: Fasting Glucose resu lt from 100 to 125 mg/dL suggests IMPAIRED HOMEOSTASIS per A.D.A. criteria. Neutrophils (Bld) [#/Vol] 11.4 10*3/uL 2.0-7.7 [facility] Neutrophils/100 WBC (Bld) 85.6 % 47-70 [facility] Potassium [Moles/Vol] 3.8 mmol/L 3.5-5.1 [facility] Protein [Mass/Vol] 7.3 g/dL 6.4-8.2 [facility] Sodium [Moles/Vol] 139 mmol/L 136-145 [facility] WBC (Bld) [#/Vol] 13.3 10*3/uL 4.4-11.0 [facility] Bilirubin Test strip Ql (U)O rdered By: Antonio Ferguson on 11-16-2023 Bilirubin Ql (U) Negative Negative [facility] Blood erythrocytes count (nu mber/volume)Ordered By: Antonio Ferguson on 11-16-2023 RBC (Bld) [#/Vol] 4.67 10*6/uL 4.6-6.2 [facility] Blood hemoglobin measurement (mass/volume)Ordered By: Antonio Ferguson on 11-16-2023 Hemoglobin (Bld) [Mass/Vol] 14.4 g/dL 13.0-16.5 [facility] Blood lymphocytes/100 leukoc ytesOrdered By: Antonio Ferguson on 11-16-2023 Lymphocytes/100 WBC (Bld) 9.2 % 19-41 [facility] Blood monocytes/100 leukocyt esOrdered By: Antonio Ferguson on 11-16-2023 Monocytes/100 WBC (Bld) 4.5 % 0-10 [facility] Blood platelet mean volumeOr dered By: Antonio Ferguson on 11-16-2023 Platelet mean volume (Bld) [Entitic vol] 10.1 fL 6.2-12.0 [facility] Determination of erythrocyte mean corpuscular volume (MCV)Ordered By: Antonio Ferguson on 11-16-2023 MCV (RBC) [Entitic vol] 89.5 fL 80-94 [facility] Hematocrit Auto (Bld) [Volum e fraction]Ordered By: Antonio Ferguson on 11-16-2023 Hematocrit (Bld) [Volume fraction] 41.8 % 40-54 [facility] Ketones Test strip Ql (U)Ord ered By: Antonio Ferguson on 11-16-2023 Ketones Ql (U) Negative Negative [facility] Laboratory - Chemistry and C hemistry - challengeOrdered By: Antonio Ferguson on 11-16-2023 ALP [Catalytic activity/Vol] 70 U/L 45-117 [facility] ALT [Catalytic activity/Vol] 51 U/L 16-61 [facility] CO2 [Moles/Vol] 26.0 mmol/L 21.0-32.0 [facility] Globulin (S) [Mass/Vol] 3.5 g/dL 2.2-4.2 [facility] Lipase [Catalytic activity/Vol] 28 U/L 13-75 [facility] Comment on above: Please note:LIPASE r evised reference range effective 23. New Lipase methodology. Expected to produce lower values than the previous assay method. NEW Reference Range: 13 - 75 U/L Urea nitrogen/Creatinine [Mass ratio] 9.3 mg/mg 10-20 [facility] - Hematology and Cell countsOrdered By: Antonio Ferguson on 11-16-2023 Erythrocyte distribution width (RBC) [Entitic vol] 39.8 fL 35.1-43.9 [facility] Erythrocyte distribution width (RBC) [Ratio] 12.2 % 11.6-14.6 [facility] Immature granulocytes/100 WBC (Bld) 0.400 % 0.0-0.9 [facility] Comment on above: IG% - Immature Granu locytes (promyelocytes, myelocytes and metamyelocytes) > 1% indicates that a LEFT SHIFT is Present. MCH (RBC) [Entitic mass] 30.8 pg 27.0-32.0 [facility] Nucleated RBC/100 WBC (Bld) [Ratio] 0 % 0-5 [facility] MCHC Auto (RBC) [Mass/Vol]Or dered By: Antonio Ferguson on 11-16-2023 MCHC (RBC) [Mass/Vol] 34.4 g/dL 32-36 [facility] Mucus LM Ql (Urine sed)Order ed By: Antonio Ferguson on 11-16-2023 Mucus Ql (Urine sed) 0 SEEN /hpf [facility] Nitrite Test strip Ql (U)Ord ered By: Antonio Ferguson on 11-16-2023 Nitrite Ql (U) Negative Negative [facility] No Panel InformationOrdered By: Antonio Ferguson on 11-16-2023 Estimated Creatinine Clearance Calc 114.92 ml/min [facility] Estimated GFR (MDRD) Amer 99 mL/min >60 [facility] Comment on above: GFR Calc Estimated GFR (MDRD) Non-Af Amer 82 mL/min >60 [facility] Comment on above: Non- GFR Calc Platelets bldOrdered By: Shreya Ferguson on 11-16-2023 Platelets (Bld) [#/Vol] 367 10*3/uL 150-450 [facility] Protein Test strip Ql (U)Ord ered By: Antonio Ferguson on 11-16-2023 Protein Ql (U) Negative Negative [facility] Serum or plasma albumin ani urement (mass/volume)Ordered By: Antonio Ferguson on 11-16-2023 Albumin [Mass/Vol] 3.8 g/dL 3.2-5.0 [facility] Serum or plasma albumin/glob ulin mass ratioOrdered By: Antonio Ferguson on 11-16-2023 Albumin/Globulin [Mass ratio] 1.1 {ratio} 0.9-2.4 [facility] Serum or plasma calcium ani urement (mass/volume)Ordered By: Antonio Ferguson on 11-16-2023 Calcium [Mass/Vol] 8.9 mg/dL 8.5-10.1 [facility] Serum or plasma creatinine m easurement (mass/volume)Ordered By: Antonio Ferguson on 11-16-2023 Creatinine [Mass/Vol] 1.07 mg/dL 0.70-1.30 [facility] Comment on above: The validity of the calculated GFR & GFRAA in patients over 70 years has not been determined. Clinical correlation is essential. Serum or plasma urea nitroge n measurement (mass/volume)Ordered By: Antonio Ferguson on 11-16-2023 Urea nitrogen [Mass/Vol] 10 mg/dL 7-18 [facility] Squamous epithelial cells de tection in urine sediment by light microscopyOrdered By: Antonio Ferguson on 11-16-2023 Epithelial cells.squamous LM Ql (Urine sed) 0-5 SEEN /hpf 0-5 [facility] Thin prep Papanicolaou smear with manual screeningOrdered By: Antonio Ferguson on 11-16-2023 Thin prep Papanicolaou smear with manual screening 19 U/L 15-37 [facility] Thin prep Papanicolaou smear with manual screening 5 5-15 [facility] Urine blood detectionOrdered By: Antonio Ferguson on 11-16-2023 RBC Ql (U) Negative Negative [facility] RBC Ql (U) 0 SEEN /hpf 0-5 [facility] Urine clarityOrdered By: Shreya Ferguson on 11-16-2023 Clarity (U) Clear Clear [facility] Urine color determinationOrd ered By: Antonio Ferguson on 11-16-2023 Color (U) Straw Yellow [facility] Urine glucose detectionOrder ed By: Antonio Ferguson on 11-16-2023 Glucose Ql (U) Normal mg/dl Normal [facility] Urine leukocyte esterase det ection by dipstickOrdered By: Antonio Ferguson on 11-16-2023 Leukocyte esterase Test strip Ql (U) Negative Negative [facility] Urine pHOrdered By: Antonio gutierrez on 11-16-2023 pH (U) 6.5 [pH] 5.0 - 8.0 [facility] Urine sediment bacteria coun t by microscopy (number/high power field)Ordered By: Antonio Ferguson on 11-16-2023 Bacteria LM.HPF (Urine sed) [#/Area] 0 /[HPF] None Seen [facility] Urine specific gravity measu rementOrdered By: Antonio Ferguson on 11-16-2023 Specific gravity (U) [Rel density] 1.010 1.002-1.03 0 [facility] Urobilinogen Auto test strip Ql (U)Ordered By: Antonio Ferguson on 11-16-2023 Urobilinogen Ql (U) Normal mg/dl Normal [facility] Absolute lymphocyte countOrd ered By: Drew Mayen on 10-11-2023 Lymphocytes Auto (Unsp spec) [#/Vol] 1.67 10*3/uL 0.83-4.51 [facility] Basophil percentageOrdered B y: Drew Prakashsonya on 10-11-2023 Basophils/100 WBC (Bld) 0.7 % 0-1 [facility] Chloride [Moles/Vol] 107 mmol/L 98-107 [facility] Eosinophils/100 WBC (Bld) 1.8 % 0-5 [facility] Glucose [Mass/Vol] 89 mg/dL 74-106 [facility] Neutrophils (Bld) [#/Vol] 3.2 10*3/uL 2.0-7.7 [facility] Neutrophils/100 WBC (Bld) 59.1 % 47-70 [facility] Potassium [Moles/Vol] 4.2 mmol/L 3.5-5.1 [facility] Sodium [Moles/Vol] 141 mmol/L 136-145 [facility] WBC (Bld) [#/Vol] 5.4 10*3/uL 4.4-11.0 [facility] Blood erythrocytes count (nu mber/volume)Ordered By: Drew Mayen on 10-11-2023 RBC (Bld) [#/Vol] 4.80 10*6/uL 4.6-6.2 [facility] Blood hemoglobin measurement (mass/volume)Ordered By: Drew Mayen on 10-11-2023 Hemoglobin (Bld) [Mass/Vol] 14.9 g/dL 13.0-16.5 [facility] Blood lymphocytes/100 leukoc ytesOrdered By: Drew Mayen on 10-11-2023 Lymphocytes/100 WBC (Bld) 30.8 % 19-41 [facility] Blood monocytes/100 leukocyt esOrdered By: Drew Mayen on 10-11-2023 Monocytes/100 WBC (Bld) 7.4 % 0-10 [facility] Blood platelet mean volumeOr dered By: Drew Mayen on 10-11-2023 Platelet mean volume (Bld) [Entitic vol] 10.3 fL 6.2-12.0 [facility] Determination of erythrocyte mean corpuscular volume (MCV)Ordered By: Drew Mayen on 10-11-2023 MCV (RBC) [Entitic vol] 91.5 fL 80-94 [facility] Hematocrit Auto (Bld) [Volum e fraction]Ordered By: Drew Mayen on 10-11-2023 Hematocrit (Bld) [Volume fraction] 43.9 % 40-54 [facility] - Chemistry and C hemistry - challengeOrdered By: Drew Mayen on 10-11-2023 CO2 [Moles/Vol] 29.0 mmol/L 21.0-32.0 [facility] Urea nitrogen/Creatinine [Mass ratio] 10.1 mg/mg 10-20 [facility] - Hematology and Cell countsOrdered By: Drew Mayen on 10-11-2023 Erythrocyte distribution width (RBC) [Entitic vol] 40.5 fL 35.1-43.9 [facility] Erythrocyte distribution width (RBC) [Ratio] 12.2 % 11.6-14.6 [facility] Immature granulocytes/100 WBC (Bld) 0.200 % 0.0-0.9 [facility] Comment on above: IG% - Immature Granu locytes (promyelocytes, myelocytes and metamyelocytes) > 1% indicates that a LEFT SHIFT is Present. MCH (RBC) [Entitic mass] 31.0 pg 27.0-32.0 [facility] Nucleated RBC/100 WBC (Bld) [Ratio] 0 % 0-5 [facility] MCHC Auto (RBC) [Mass/Vol]Or dered By: Drew Mayen on 10-11-2023 MCHC (RBC) [Mass/Vol] 33.9 g/dL 32-36 [facility] No Panel InformationOrdered By: Drew Mayen on 10-11-2023 Estimated GFR (MDRD) Amer 97 mL/min >60 [facility] Comment on above: GFR Calc Estimated GFR (MDRD) Non-Af Amer 81 mL/min >60 [facility] Comment on above: Non- GFR Calc Platelets bldOrdered By: Sagar Mayen on 10-11-2023 Platelets (Bld) [#/Vol] 385 10*3/uL 150-450 [facility] Serum or plasma calcium ani urement (mass/volume)Ordered By: Drew Mayen on 10-11-2023 Calcium [Mass/Vol] 9.0 mg/dL 8.5-10.1 [facility] Serum or plasma creatinine m easurement (mass/volume)Ordered By: marleniholly hillmirella Mayen on 10-11-2023 Creatinine [Mass/Vol] 1.09 mg/dL 0.70-1.30 [facility] Comment on above: The validity of the calculated GFR & GFRAA in patients over 70 years has not been determined. Clinical correlation is essential. Serum or plasma urea nitroge n measurement (mass/volume)Ordered By: marleniholly hillmirella Randallcorinne on 10-11-2023 Urea nitrogen [Mass/Vol] 11 mg/dL 7-18 [facility] Thin prep Papanicolaou smear with manual screeningOrdered By: [facility]ton[facility] Randallcorinne on 10-11-2023 Thin prep Papanicolaou smear with manual screening 5 5-15 [facility] Absolute lymphocyte countOrd ered By: Miriam Johnson on 06-01-2023 Lymphocytes Auto (Unsp spec) [#/Vol] 1.50 10*3/uL 0.83-4.51 [facility] Basophil percentageOrdered B y: Miriam Johnson on 06-01-2023 Basophils/100 WBC (Bld) 0.6 % 0-1 [facility] Chloride [Moles/Vol] 113 mmol/L 98-107 [facility] Eosinophils/100 WBC (Bld) 1.6 % 0-5 [facility] Glucose [Mass/Vol] 104 mg/dL 74-106 [facility] Comment on above: Fasting Glucose resu lt from 100 to 125 mg/dL suggests IMPAIRED HOMEOSTASIS per A.D.A. criteria. Neutrophils (Bld) [#/Vol] 4.2 10*3/uL 2.0-7.7 [facility] Neutrophils/100 WBC (Bld) 66.4 % 47-70 [facility] Potassium [Moles/Vol] 3.9 mmol/L 3.5-5.1 [facility] Sodium [Moles/Vol] 142 mmol/L 136-145 [facility] WBC (Bld) [#/Vol] 6.3 10*3/uL 4.4-11.0 [facility] Blood erythrocytes count (nu mber/volume)Ordered By: Miriam Johnson on 06-01-2023 RBC (Bld) [#/Vol] 4.16 10*6/uL 4.6-6.2 [facility] Blood hemoglobin measurement (mass/volume)Ordered By: Miriam Johnson on 06-01-2023 Hemoglobin (Bld) [Mass/Vol] 13.2 g/dL 13.0-16.5 [facility] Blood lymphocytes/100 leukoc ytesOrdered By: Miriam Johnson on 06-01-2023 Lymphocytes/100 WBC (Bld) 23.8 % 19-41 [facility] Blood monocytes/100 leukocyt esOrdered By: Miriam Johnson on 06-01-2023 Monocytes/100 WBC (Bld) 7.3 % 0-10 [facility] Blood platelet mean volumeOr dered By: Miriam Johnson on 06-01-2023 Platelet mean volume (Bld) [Entitic vol] 10.4 fL 6.2-12.0 [facility] Determination of erythrocyte mean corpuscular volume (MCV)Ordered By: Miriam Johnson on 06-01-2023 MCV (RBC) [Entitic vol] 92.3 fL 80-94 [facility] Hematocrit Auto (Bld) [Volum e fraction]Ordered By: Miriam Johnson on 06-01-2023 Hematocrit (Bld) [Volume fraction] 38.4 % 40-54 [facility] - Chemistry and C hemistry - challengeOrdered By: Miriam Johnson on 06-01-2023 CO2 [Moles/Vol] 27.0 mmol/L 21.0-32.0 [facility] Urea nitrogen/Creatinine [Mass ratio] 6.8 mg/mg 10-20 [facility] - Hematology and Cell countsOrdered By: Miriam Johnson on 06-01-2023 Erythrocyte distribution width (RBC) [Entitic vol] 43.5 fL 35.1-43.9 [facility] Erythrocyte distribution width (RBC) [Ratio] 12.8 % 11.6-14.6 [facility] Immature granulocytes/100 WBC (Bld) 0.300 % 0.0-0.9 [facility] Comment on above: IG% - Immature Granu locytes (promyelocytes, myelocytes and metamyelocytes) > 1% indicates that a LEFT SHIFT is Present. MCH (RBC) [Entitic mass] 31.7 pg 27.0-32.0 [facility] Nucleated RBC/100 WBC (Bld) [Ratio] 0 % 0-5 [facility] MCHC Auto (RBC) [Mass/Vol]Or dered By: Miriam Johnson on 06-01-2023 MCHC (RBC) [Mass/Vol] 34.4 g/dL 32-36 [facility] No Panel InformationOrdered By: Miriam Johnson on 06-01-2023 Estimated Creatinine Clearance Calc 120.56 ml/min [facility] Estimated GFR (MDRD) Amer 104 mL/min >60 [facility] Comment on above: GFR Calc Estimated GFR (MDRD) Non-Af Amer 86 mL/min >60 [facility] Comment on above: Non- GFR Calc Platelets bldOrdered By: Joana Johnson on 06-01-2023 Platelets (Bld) [#/Vol] 251 10*3/uL 150-450 [facility] Serum or plasma calcium ani urement (mass/volume)Ordered By: Miriam Johnson on 06-01-2023 Calcium [Mass/Vol] 8.4 mg/dL 8.5-10.1 [facility] Serum or plasma creatinine m easurement (mass/volume)Ordered By: Miriam Johnson on 06-01-2023 Creatinine [Mass/Vol] 1.03 mg/dL 0.70-1.30 [facility] Comment on above: The validity of the calculated GFR & GFRAA in patients over 70 years has not been determined. Clinical correlation is essential. Serum or plasma urea nitroge n measurement (mass/volume)Ordered By: Miraim Johnson on 06-01-2023 Urea nitrogen [Mass/Vol] 7 mg/dL 7-18 [facility] Thin prep Papanicolaou smear with manual screeningOrdered By: Miriam Johnson on 06-01-2023 Thin prep Papanicolaou smear with manual screening 2 5-15 [facility] Vancomycin troughOrdered By: Gatito Chase on 06-01-2023 Vancomycin trough [Mass/Vol] 18.7 ug/mL 5.0-15.0 [facility] Comment on above: VANCOMYCIN STANDARED DRUG THERAPY TROUGH LEVEL: 5.0 - 15.0 mg/L VANCOMYCIN HIGH INTENSITY THERAPY TROUGH LEVEL: 15.0 - 20.0 mg/L High Intensity therapy recommended for serious lifethreatening infections include:- Uvqtziwuxl-Todynfbpemtd-Kltmaqgqd (Ventilator/Healtcare Associated)-Sepsis PLEASE CONTACT PHARMACY SERVICES (#5284) FOR INTERPRETATIONOF RESULTS. Basophil percentageOrdered B y: Suzi Castaneda on 05-30-2023 Bilirubin [Mass/Vol] 1.30 mg/dL 0.20-1.00 [facility] Comment on above: For patients on eltr ombopag therapy, use of Dimension [place] TBIL is not recommended. Protein [Mass/Vol] 6.7 g/dL 6.4-8.2 [facility] Basophil percentageOrdered B y: Antonio Ferguson on 05-30-2023 Lactate [Moles/Vol] 1.7 mmol/L 0.4-2.0 [facility] - Chemistry and C hemistry - challengeOrdered By: Suzi Castaneda on 05-30-2023 ALP [Catalytic activity/Vol] 60 U/L 45-117 [facility] ALT [Catalytic activity/Vol] 52 U/L 16-61 [facility] Globulin (S) [Mass/Vol] 3.2 g/dL 2.2-4.2 [facility] Serum or plasma albumin ani urement (mass/volume)Ordered By: Suzi Castaneda on 05-30-2023 Albumin [Mass/Vol] 3.5 g/dL 3.2-5.0 [facility] Serum or plasma albumin/glob ulin mass ratioOrdered By: Suzi Castaneda on 05-30-2023 Albumin/Globulin [Mass ratio] 1.1 {ratio} 0.9-2.4 [facility] Serum procalcitonin measurem entOrdered By: Suzi Castaneda on 05-30-2023 Procalcitonin [Mass/Vol] 1.28 ng/mL 0.00-0.09 [facility] Comment on above: A procalcitonin (PCT ) [...] smear with manual screening 20 U/L 15-37 [facility] Absolute lymphocyte countOrd ered By: Antonio Ferguson on 05-29-2023 Lymphocytes Auto (Unsp spec) [#/Vol] 0.50 10*3/uL 0.83-4.51 [facility] Basophil percentageOrdered B y: Antonio Ferguson on 05-29-2023 Chloride [Moles/Vol] 106 mmol/L 98-107 [facility] Glucose [Mass/Vol] 122 mg/dL 74-106 [facility] Comment on above: Fasting Glucose resu lt from 100 to 125 mg/dL suggests IMPAIRED HOMEOSTASIS per A.D.A. criteria. Lactate [Moles/Vol] 2.2 mmol/L 0.4-2.0 [facility] Comment on above: Critical Result(s) C alled at: 00:16:26 05/30/2023 by: Shayne Adam TO ALEX BARRETT RN (ED) Results read back by same. Potassium [Moles/Vol] 4.1 mmol/L 3.5-5.1 [facility] Comment on above: Moderate Hemolysis, Result may be falsely increased. Sodium [Moles/Vol] 135 mmol/L 136-145 [facility] Basophils/100 WBC (Bld) 0.3 % 0-1 [facility] Eosinophils/100 WBC (Bld) 0.0 % 0-5 [facility] Neutrophils (Bld) [#/Vol] 18.1 10*3/uL 2.0-7.7 [facility] Neutrophils/100 WBC (Bld) 92.0 % 47-70 [facility] WBC (Bld) [#/Vol] 19.7 10*3/uL 4.4-11.0 [facility] Blood erythrocytes count (nu mber/volume)Ordered By: Antonio Ferguson on 05-29-2023 RBC (Bld) [#/Vol] 4.43 10*6/uL 4.6-6.2 [facility] Blood hemoglobin measurement (mass/volume)Ordered By: Antonio Ferguson on 05-29-2023 Hemoglobin (Bld) [Mass/Vol] 13.9 g/dL 13.0-16.5 [facility] Blood lymphocytes/100 leukoc ytesOrdered By: Antonio Ferguson on 05-29-2023 Lymphocytes/100 WBC (Bld) 2.5 % 19-41 [facility] Blood monocytes/100 leukocyt esOrdered By: Antonio Ferguson on 05-29-2023 Monocytes/100 WBC (Bld) 4.6 % 0-10 [facility] Blood platelet mean volumeOr dered By: Antonio Ferguson on 05-29-2023 Platelet mean volume (Bld) [Entitic vol] 10.0 fL 6.2-12.0 [facility] Determination of erythrocyte mean corpuscular volume (MCV)Ordered By: Antonio Ferguson on 05-29-2023 MCV (RBC) [Entitic vol] 90.3 fL 80-94 [facility] Hematocrit Auto (Bld) [Volum e fraction]Ordered By: Antonio Ferguson on 05-29-2023 Hematocrit (Bld) [Volume fraction] 40.0 % 40-54 [facility] - Chemistry and C hemistry - challengeOrdered By: Antonio Freguson on 05-29-2023 CO2 [Moles/Vol] 21.0 mmol/L 21.0-32.0 [facility] Urea nitrogen/Creatinine [Mass ratio] 10.9 mg/mg 10-20 [facility] - Hematology and Cell countsOrdered By: Antonio Ferguson on 05-29-2023 Erythrocyte distribution width (RBC) [Entitic vol] 40.3 fL 35.1-43.9 [facility] Erythrocyte distribution width (RBC) [Ratio] 12.2 % 11.6-14.6 [facility] Immature granulocytes/100 WBC (Bld) 0.600 % 0.0-0.9 [facility] Comment on above: IG% - Immature Granu locytes (promyelocytes, myelocytes and metamyelocytes) > 1% indicates that a LEFT SHIFT is Present. MCH (RBC) [Entitic mass] 31.4 pg 27.0-32.0 [facility] Nucleated RBC/100 WBC (Bld) [Ratio] 0 % 0-5 [facility] - Microbiology an d Antimicrobial susceptibilityOrdered By: Antonio Ferguson on 05-29-2023 Bacteria identified Cx Nom (Bld) No growth in 5 days. [facility] MCHC Auto (RBC) [Mass/Vol]Or dered By: Antonio Ferguson on 05-29-2023 MCHC (RBC) [Mass/Vol] 34.8 g/dL 32-36 [facility] No Panel InformationOrdered By: Antonio Ferguson on 05-29-2023 Estimated Creatinine Clearance Calc 90.64 ml/min [facility] Estimated GFR (MDRD) Amer 75 mL/min >60 [facility] Comment on above: GFR Calc Estimated GFR (MDRD) Non-Af Amer 62 mL/min >60 [facility] Comment on above: Non- GFR Calc Platelets bldOrdered By: Shreya Ferguson on 05-29-2023 Platelets (Bld) [#/Vol] 294 10*3/uL 150-450 [facility] Serum or plasma calcium ani urement (mass/volume)Ordered By: Antonio Ferguson on 05-29-2023 Calcium [Mass/Vol] 9.3 mg/dL 8.5-10.1 [facility] Serum or plasma creatinine m easurement (mass/volume)Ordered By: Antonio Ferguson on 05-29-2023 Creatinine [Mass/Vol] 1.37 mg/dL 0.70-1.30 [facility] Comment on above: The validity of the calculated GFR & GFRAA in patients over 70 years has not been determined. Clinical correlation is essential. Serum or plasma urea nitroge n measurement (mass/volume)Ordered By: Antonio Ferguson on 05-29-2023 Urea nitrogen [Mass/Vol] 15 mg/dL 7-18 [facility] Thin prep Papanicolaou smear with manual screeningOrdered By: Antonio Ferguson on 05-29-2023 Thin prep Papanicolaou smear with manual screening 8 5-15 [facility] Basophil percentageOrdered B y: HEALTH ASSESSMENT on 05-25-2023 Cholesterol [Mass/Vol] 190 mg/dL <200 [facility] Comment on above: <200 mg/dL Desirable 200-240 mg/dL Borderline >240 mg/dL High Risk Glucose [Mass/Vol] 100 mg/dL 74-106 [facility] Comment on above: Fasting Glucose resu lt from 100 to 125 mg/dL suggests IMPAIRED HOMEOSTASIS per A.D.A. criteria. Triglyceride [Mass/Vol] 97 mg/dL <199 [facility] Comment on above: The drugs N-Acetylcy steine and Metamizole may falsely depress this assay.Serum Triglycerides Reference Interval Normal <150 mg/dL Borderline high 150 - 199 mg/dL High 200 - 499 mg/dL Very High > or = 500 mg/dL Serum or plasma cholesterol in HDL measurement (mass/volume)Ordered By: HEALTH ASSESSMENT on 05-25-2023 Cholesterol in HDL [Mass/Vol] 39 mg/dL >40 [facility] Comment on above: The drugs N-Acetylcy steine and Metamizole may falsely depress this assay. Reference Range HDL <40 mg/dL Low HDL Cholesterol HDL >or= 60 mg/dL High HDL Cholesterol Serum or plasma cholesterol in VLDL measurement (mass/volume)Ordered By: HEALTH ASSESSMENT on 05-25-2023 Cholesterol in VLDL [Mass/Vol] 19 mg/dL 5-40 [facility] Serum or plasma low density lipoprotein (LDL) cholesterol measurement (mass/volume)Ordered By: HEALTH ASSESSMENT on 05-25-2023 Cholesterol in LDL [Mass/Vol] 132 mg/dL 0-130 [facility] Absolute lymphocyte countOrd ered By: Drew Mayen on 04-12-2023 Lymphocytes Auto (Unsp spec) [#/Vol] 1.65 10*3/uL 0.83-4.51 [facility] Basophil percentageOrdered B y: Drew Mayen on 04-12-2023 Basophils/100 WBC (Bld) 0.7 % 0-1 [facility] Bilirubin [Mass/Vol] 0.80 mg/dL 0.20-1.00 [facility] Comment on above: For patients on eltr ombopag therapy, use of Dimension [place] TBIL is not recommended. Chloride [Moles/Vol] 108 mmol/L 98-107 [facility] Cholesterol [Mass/Vol] 171 mg/dL <200 [facility] Comment on above: <200 mg/dL Desirable 200-240 mg/dL Borderline >240 mg/dL High Risk Eosinophils/100 WBC (Bld) 2.0 % 0-5 [facility] Glucose [Mass/Vol] 101 mg/dL 74-106 [facility] Comment on above: Fasting Glucose resu lt from 100 to 125 mg/dL suggests IMPAIRED HOMEOSTASIS per A.D.A. criteria. Neutrophils (Bld) [#/Vol] 5.1 10*3/uL 2.0-7.7 [facility] Neutrophils/100 WBC (Bld) 69.3 % 47-70 [facility] Potassium [Moles/Vol] 4.0 mmol/L 3.5-5.1 [facility] Protein [Mass/Vol] 7.1 g/dL 6.4-8.2 [facility] Sodium [Moles/Vol] 141 mmol/L 136-145 [facility] Triglyceride [Mass/Vol] 112 mg/dL <199 [facility] Comment on above: The drugs N-Acetylcy steine and Metamizole may falsely depress this assay.Serum Triglycerides Reference Interval Normal <150 mg/dL Borderline high 150 - 199 mg/dL High 200 - 499 mg/dL Very High > or = 500 mg/dL WBC (Bld) [#/Vol] 7.4 10*3/uL 4.4-11.0 [facility] Blood erythrocytes count (nu mber/volume)Ordered By: Drew Mayen on 04-12-2023 RBC (Bld) [#/Vol] 4.70 10*6/uL 4.6-6.2 [facility] Blood hemoglobin measurement (mass/volume)Ordered By: Drew Mayen on 04-12-2023 Hemoglobin (Bld) [Mass/Vol] 14.6 g/dL 13.0-16.5 [facility] Blood lymphocytes/100 leukoc ytesOrdered By: Drew Mayen on 04-12-2023 Lymphocytes/100 WBC (Bld) 22.3 % 19-41 [facility] Blood monocytes/100 leukocyt esOrdered By: Drew Mayen on 04-12-2023 Monocytes/100 WBC (Bld) 5.4 % 0-10 [facility] Blood platelet mean volumeOr dered By: Drew Mayen on 04-12-2023 Platelet mean volume (Bld) [Entitic vol] 10.4 fL 6.2-12.0 [facility] Determination of erythrocyte mean corpuscular volume (MCV)Ordered By: Drew Mayen on 04-12-2023 MCV (RBC) [Entitic vol] 90.6 fL 80-94 [facility] Hematocrit Auto (Bld) [Volum e fraction]Ordered By: marleniholly hillmirella Mayen on 04-12-2023 Hematocrit (Bld) [Volume fraction] 42.6 % 40-54 [facility] Iron measurement (mass/mass) Ordered By: Drew Mayen on 04-12-2023 Iron (Unsp spec) [Mass/Mass] 110 ug/dL 65-175 [facility] Laboratory - Chemistry and C hemistry - challengeOrdered By: Drew Mayen on 04-12-2023 ALP [Catalytic activity/Vol] 71 U/L 45-117 [facility] ALT [Catalytic activity/Vol] 61 U/L 16-61 [facility] CO2 [Moles/Vol] 26.0 mmol/L 21.0-32.0 [facility] Globulin (S) [Mass/Vol] 3.1 g/dL 2.2-4.2 [facility] Urea nitrogen/Creatinine [Mass ratio] 9.3 mg/mg 10-20 [facility] Laboratory - Hematology and Cell countsOrdered By: Drew Mayen on 04-12-2023 Erythrocyte distribution width (RBC) [Entitic vol] 41.0 fL 35.1-43.9 [facility] Erythrocyte distribution width (RBC) [Ratio] 12.5 % 11.6-14.6 [facility] Immature granulocytes/100 WBC (Bld) 0.300 % 0.0-0.9 [facility] Comment on above: IG% - Immature Granu locytes (promyelocytes, myelocytes and metamyelocytes) > 1% indicates that a LEFT SHIFT is Present. MCH (RBC) [Entitic mass] 31.1 pg 27.0-32.0 [facility] Nucleated RBC/100 WBC (Bld) [Ratio] 0 % 0-5 [facility] MCHC Auto (RBC) [Mass/Vol]Or dered By: Drew Mayen on 04-12-2023 MCHC (RBC) [Mass/Vol] 34.3 g/dL 32-36 [facility] No Panel InformationOrdered By: Drew Mayen on 04-12-2023 Estimated GFR (MDRD) Amer 100 mL/min >60 [facility] Comment on above: GFR Calc Estimated GFR (MDRD) Non-Af Amer 82 mL/min >60 [facility] Comment on above: Non- GFR Calc Total Iron Binding Capacity 321 ug/dL 250-450 [facility] Platelets bldOrdered By: Sagar Maeyn on 04-12-2023 Platelets (Bld) [#/Vol] 349 10*3/uL 150-450 [facility] Serum or plasma albumin ani urement (mass/volume)Ordered By: Drew Mayen on 04-12-2023 Albumin [Mass/Vol] 4.0 g/dL 3.2-5.0 [facility] Serum or plasma albumin/glob ulin mass ratioOrdered By: Drew Mayen on 04-12-2023 Albumin/Globulin [Mass ratio] 1.3 {ratio} 0.9-2.4 [facility] Serum or plasma calcium ani urement (mass/volume)Ordered By: Drew Mayen on 04-12-2023 Calcium [Mass/Vol] 9.1 mg/dL 8.5-10.1 [facility] Serum or plasma cholesterol in HDL measurement (mass/volume)Ordered By: Drew Mayen on 04-12-2023 Cholesterol in HDL [Mass/Vol] 37 mg/dL >40 [facility] Comment on above: The drugs N-Acetylcy steine and Metamizole may falsely depress this assay. Reference Range HDL <40 mg/dL Low HDL Cholesterol HDL >or= 60 mg/dL High HDL Cholesterol Serum or plasma cholesterol in VLDL measurement (mass/volume)Ordered By: Drew Mayen on 04-12-2023 Cholesterol in VLDL [Mass/Vol] 22 mg/dL 5-40 [facility] Serum or plasma creatinine m easurement (mass/volume)Ordered By: Drew Mayen on 04-12-2023 Creatinine [Mass/Vol] 1.07 mg/dL 0.70-1.30 [facility] Comment on above: The validity of the calculated GFR & GFRAA in patients over 70 years has not been determined. Clinical correlation is essential. Serum or plasma ferritin mariam surement (mass/volume)Ordered By: Drew Mayen on 04-12-2023 Ferritin [Mass/Vol] 121 ng/mL 26-388 [facility] Serum or plasma low density lipoprotein (LDL) cholesterol measurement (mass/volume)Ordered By: Drew Mayen on 04-12-2023 Cholesterol in LDL [Mass/Vol] 112 mg/dL 0-130 [facility] Serum or plasma urea nitroge n measurement (mass/volume)Ordered By: Drew Mayen on 04-12-2023 Urea nitrogen [Mass/Vol] 10 mg/dL 7-18 [facility] Thin prep Papanicolaou smear with manual screeningOrdered By: Drew Mayen on 04-12-2023 Thin prep Papanicolaou smear with manual screening 29 U/L 15-37 [facility] Thin prep Papanicolaou smear with manual screening 7 - [facility] Absolute lymphocyte counton 11-24-2022 Lymphocytes Auto (Unsp spec) [#/Vol] 1.41 10*3/uL 0.83-4.51 [facility] Work Phone: Basophil percentageon 2021 Basophils/100 WBC (Bld) 0.4 % 0-1 [facility] Work Phone: Bilirubin [Mass/Vol] 1.10 mg/dL 0.20-1.00 [facility] Work Phone: Comment on above: For patients on eltr ombopag therapy, use of Dimension [place] TBIL is not recommended. Chloride [Moles/Vol] 107 mmol/L 98-107 [facility] Work Phone: Eosinophils/100 WBC (Bld) 0.1 % 0-5 [facility] Work Phone: Glucose [Mass/Vol] 120 mg/dL 74-106 [facility] Work Phone: Comment on above: Fasting Glucose resu lt from 100 to 125 mg/dL suggests IMPAIRED HOMEOSTASIS per A.D.A. criteria. Neutrophils (Bld) [#/Vol] 7.3 10*3/uL 2.0-7.7 [facility] Work Phone: Neutrophils/100 WBC (Bld) 75.7 % 47-70 [facility] Work Phone: [phone] Potassium [Moles/Vol] 3.6 mmol/L 3.5-5.1 [facility] Work Phone: Protein [Mass/Vol] 7.1 g/dL 6.4-8.2 [facility] Work Phone: Sodium [Moles/Vol] 140 mmol/L 136-145 [facility] Work Phone: [phone] WBC (Bld) [#/Vol] 9.7 10*3/uL 4.4-11.0 [facility] Work Phone: Blood erythrocytes count (nu mber/volume)on 11-24-2022 RBC (Bld) [#/Vol] 4.53 10*6/uL 4.6-6.2 [facility] Work Phone: Blood hemoglobin measurement (mass/volume)on 11-24-2022 Hemoglobin (Bld) [Mass/Vol] 13.8 g/dL 13.0-16.5 [facility] Work Phone: Blood lymphocytes/100 leukoc yteson 11-24-2022 Lymphocytes/100 WBC (Bld) 14.5 % 19-41 [facility] Work Phone: Blood monocytes/100 leukocyt eson 11-24-2022 Monocytes/100 WBC (Bld) 9.0 % 0-10 [facility] Work Phone: Blood platelet mean volumeon 11-24-2022 Platelet mean volume (Bld) [Entitic vol] 10.2 fL 6.2-12.0 [facility] Work Phone: Determination of erythrocyte mean corpuscular volume (MCV)on 11-24-2022 MCV (RBC) [Entitic vol] 92.5 fL 80-94 [facility] Work Phone: Hematocrit Auto (Bld) [Volum e fraction]on 11-24-2022 Hematocrit (Bld) [Volume fraction] 41.9 % 40-54 [facility] Work Phone: Iron measurement (mass/mass) on 11-24-2022 Iron (Unsp spec) [Mass/Mass] 26 ug/dL 65-175 [facility] Work Phone: Laboratory - Chemistry and C hemistry - challengeon 11-24-2022 ALP [Catalytic activity/Vol] 66 U/L 45-117 [facility] Work Phone: ALT [Catalytic activity/Vol] 43 U/L 16-61 [facility] Work Phone: CO2 [Moles/Vol] 26.0 mmol/L 21.0-32.0 [facility] Work Phone: Cobalamin (Vitamin B12) [Mass/Vol] 285 pg/mL 211-911 [facility] Work Phone: Globulin (S) [Mass/Vol] 3.6 g/dL 2.2-4.2 [facility] Work Phone: Urea nitrogen/Creatinine [Mass ratio] 9.0 mg/mg 10-20 [facility] Work Phone: Laboratory - Hematology and Cell countson 11-24-2022 Erythrocyte distribution width (RBC) [Entitic vol] 42.7 fL 35.1-43.9 [facility] Work Phone: Erythrocyte distribution width (RBC) [Ratio] 12.6 % 11.6-14.6 [facility] Work Phone: Immature granulocytes/100 WBC (Bld) 0.300 % 0.0-0.9 [facility] Work Phone: Comment on above: IG% - Immature Granu locytes (promyelocytes, myelocytes and metamyelocytes) > 1% indicates that a LEFT SHIFT is Present. MCH (RBC) [Entitic mass] 30.5 pg 27.0-32.0 [facility] Work Phone: Nucleated RBC/100 WBC (Bld) [Ratio] 0 % 0-5 [facility] Work Phone: MCHC Auto (RBC) [Mass/Vol]on 11-24-2022 MCHC (RBC) [Mass/Vol] 32.9 g/dL 32-36 [facility] Work Phone: No Panel Informationon 11-24 Estimated Creatinine Clearance Calc 124.17 ml/min [facility] Work Phone: Estimated GFR (MDRD) Amer 109 mL/min >60 [facility] Work Phone: Comment on above: GFR Calc Estimated GFR (MDRD) Non-Af Amer 90 mL/min >60 [facility] Work Phone: Comment on above: Non- GFR Calc Total Iron Binding Capacity 289 ug/dL 250-450 [facility] Work Phone: Platelets bldon 11-24-2022 Platelets (Bld) [#/Vol] 323 10*3/uL 150-450 [facility] Work Phone: Serum or plasma albumin ani urement (mass/volume)on 11-24-2022 Albumin [Mass/Vol] 3.5 g/dL 3.2-5.0 [facility] Work Phone: Serum or plasma albumin/glob ulin mass ratioon 11-24-2022 Albumin/Globulin [Mass ratio] 1.0 {ratio} 0.9-2.4 [facility] Work Phone: Serum or plasma calcium ani urement (mass/volume)on 11-24-2022 Calcium [Mass/Vol] 8.4 mg/dL 8.5-10.1 [facility] Work Phone: Serum or plasma creatinine m easurement (mass/volume)on 11-24-2022 Creatinine [Mass/Vol] 1.00 mg/dL 0.70-1.30 [facility] Work Phone: Comment on above: The validity of the calculated GFR & GFRAA in patients over 70 years has not been determined. Clinical correlation is essential. Serum or plasma ferritin mariam surement (mass/volume)on 11-24-2022 Ferritin [Mass/Vol] 222 ng/mL 26-388 [facility] Work Phone: Serum or plasma folate measu rement (mass/volume)on 11-24-2022 Folate [Mass/Vol] 17.70 ng/mL 3.1-55.4 [facility] Work Phone: Serum or plasma iron saturat ion measurement (mass fraction)on 11-24-2022 Iron saturation [Mass fraction] 9.0 % 15.0-55.0 [facility] Work Phone: Serum or plasma urea nitroge n measurement (mass/volume)on 11-24-2022 Urea nitrogen [Mass/Vol] 9 mg/dL 7-18 [facility] Work Phone: Thin prep Papanicolaou smear with manual screeningon 11-24-2022 Thin prep Papanicolaou smear with manual screening 15 U/L 15-37 [facility] Work Phone: Thin prep Papanicolaou smear with manual screening 7 5-15 [facility] Work Phone: Absolute lymphocyte counton 11-23-2022 Lymphocytes Auto (Unsp spec) [#/Vol] 1.31 10*3/uL 0.83-4.51 [facility] Work Phone: Basophil percentageon 2021 Basophils/100 WBC (Bld) 0.2 % 0-1 [facility] Work Phone: Eosinophils/100 WBC (Bld) 0.1 % 0-5 [facility] Work Phone: Neutrophils (Bld) [#/Vol] 7.2 10*3/uL 2.0-7.7 [facility] Work Phone: Neutrophils/100 WBC (Bld) 77.5 % 47-70 [facility] Work Phone: WBC (Bld) [#/Vol] 9.3 10*3/uL 4.4-11.0 [facility] Work Phone: [phone] Blood erythrocytes count (nu mber/volume)on 11-23-2022 RBC (Bld) [#/Vol] 3.60 10*6/uL 4.6-6.2 [facility] Work [facility]: Blood hemoglobin measurement (mass/volume)on 11-23-2022 Hemoglobin (Bld) [Mass/Vol] 11.1 g/dL 13.0-16.5 [facility] Work Phone: Blood lymphocytes/100 leukoc yteson 11-23-2022 Lymphocytes/100 WBC (Bld) 14.2 % 19-41 [facility] Work Phone: Blood monocytes/100 leukocyt eson 11-23-2022 Monocytes/100 WBC (Bld) 7.6 % 0-10 [facility] Work Phone: Blood platelet mean volumeon 11-23-2022 Platelet mean volume (Bld) [Entitic vol] 10.3 fL 6.2-12.0 [facility] Work Phone: Determination of erythrocyte mean corpuscular volume (MCV)on 11-23-2022 MCV (RBC) [Entitic vol] 95.0 fL 80-94 [facility] Work Phone: Hematocrit Auto (Bld) [Volum e fraction]on 11-23-2022 Hematocrit (Bld) [Volume fraction] 34.2 % 40-54 [facility] Work Phone: [phone] Laboratory - Hematology and Cell countson 11-23-2022 Erythrocyte distribution width (RBC) [Entitic vol] 42.8 fL 35.1-43.9 [facility] Work Phone: Erythrocyte distribution width (RBC) [Ratio] 12.4 % 11.6-14.6 [facility] Work Phone: Immature granulocytes/100 WBC (Bld) 0.400 % 0.0-0.9 [facility] Work Phone: Comment on above: IG% - Immature Granu locytes (promyelocytes, myelocytes and metamyelocytes) > 1% indicates that a LEFT SHIFT is Present. MCH (RBC) [Entitic mass] 30.8 pg 27.0-32.0 [facility] Work Phone: Nucleated RBC/100 WBC (Bld) [Ratio] 0 % 0-5 [facility] Work Phone: MCHC Auto (RBC) [Mass/Vol]on 11-23-2022 MCHC (RBC) [Mass/Vol] 32.5 g/dL 32-36 [facility] Work Phone: Platelets bldon 11-23-2022 Platelets (Bld) [#/Vol] 246 10*3/uL 150-450 [facility] Work Phone: NUC LYMPHOSCINTIGRAPHYon NUC LYMPHOSCINTIGRAPHY EXAM: [...] have reviewed and approved this report. Normal [facility] CBC AND ELECTRONIC DIFFon Basophils (Bld) [#/Vol] 0.07 10*3/uL Normal 0.00-0.09 [facility] Comment on above: Performed By: #### L [id number] #### [facility] (DEFAULT) [address] [address] Basophils/100 WBC (Bld) 0.8 % Normal [facility] Comment on above: Performed By: #### L [id number] #### [facility] (DEFAULT) [address] [address] DIFF STATUS Electronic Differential Normal [facility] Comment on above: Performed By: #### L [id number] #### [facility] (DEFAULT) [address] [address] Eosinophils (Bld) [#/Vol] 0.09 10*3/uL Normal 0.00-0.48 [facility] Comment on above: Performed By: #### L [id number] #### [facility] (DEFAULT) [address] [address] Eosinophils/100 WBC (Bld) 1.1 % Normal [facility] Comment on above: Performed By: #### L [id number] #### [facility] (DEFAULT) [address] [address] Hematocrit (Bld) [Volume fraction] 46.5 % Normal 39.6-48.8 [facility] Comment on above: Performed By: #### L [id number] #### [facility] (DEFAULT) [address] [address] Hemoglobin (Bld) [Mass/Vol] 16.1 g/dL Normal 13.4-16.8 [facility] Comment on above: Performed By: #### L [id number] #### [facility] (DEFAULT) [address] [address] Immature Grans % 0.5 % Normal [facility] Comment on above: Performed By: #### L [id number] #### [facility] (DEFAULT) [address] [address] Immature Grans Absolute 0.04 K/uL Normal <=0.08 [facility] Comment on above: Performed By: #### L [id number] #### [facility] (DEFAULT) [address] [address] Lymphocytes (Bld) [#/Vol] 1.94 10*3/uL Normal 0.83-3.57 [facility] Comment on above: Performed By: #### L [id number] #### [facility] (DEFAULT) [address] [address] Lymphocytes/100 WBC (Bld) 23.1 % Normal [facility] Comment on above: Performed By: #### L [id number] #### [facility] (DEFAULT) [address] [address] MCV (RBC) [Entitic vol] 89.4 fL Normal 79.0-94.5 [facility] Comment on above: Performed By: #### L [id number] #### [facility] (DEFAULT) [address] [place] [address] Mean Cell Hgb 31.0 pg Normal 26.1-33.3 [facility] Comment on above: Performed By: #### L [id number] #### [facility] (DEFAULT) [address] [place] [address] Mean Cell Hgb Conc 34.6 g/dL Normal 31.9-36.5 [facility] Comment on above: Performed By: #### L [id number] #### [facility] (DEFAULT) [address] [place] [address] Monocytes (Bld) [#/Vol] 0.50 10*3/uL Normal 0.24-0.93 [facility] Comment on above: Performed By: #### L [id number] #### [facility] (DEFAULT) [address] [place] [address] Monocytes/100 WBC (Bld) 6.0 % Normal [facility] Comment on above: Performed By: #### L [id number] #### [facility] (DEFAULT) [address] [place] [address] Nucleated RBC 0.0 /100 WBC Normal <=0.2 [facility] Comment on above: Performed By: #### L [id number] #### [facility] (DEFAULT) [address] [place] [address] Platelet mean volume (Bld) [Entitic vol] 10.2 fL Normal 8.7-12.3 [facility] Comment on above: Performed By: #### L [id number] #### [facility] (DEFAULT) [address] [place] [address] Platelets (Bld) [#/Vol] 427 10*3/uL High 146-337 [facility] Comment on above: Performed By: #### L [id number] #### [facility] (DEFAULT) [address] [place] [address] RBC (Bld) [#/Vol] 5.20 10*6/uL Normal 4.38-5.83 [facility] Comment on above: Performed By: #### L [id number] #### [facility] (DEFAULT) [address] [address] RBC Distribution 12.0 % Normal 10.9-14.3 [facility] Comment on above: Performed By: #### L [id number] #### [facility] (DEFAULT) [address] [address] Segs + Bands Auto 68.5 % Normal [facility] Comment on above: Performed By: #### L [id number] #### [facility] (DEFAULT) [address] [address] Segs + Bands,Absolute Auto 5.76 K/uL Normal 1.57-6.19 [facility] Comment on above: Performed By: #### L [id number] #### [facility] (DEFAULT) [address] [address] WBC (Bld) [#/Vol] 8.40 10*3/uL Normal 3.73-10.10 [facility] Comment on above: Performed By: #### L [id number] #### [facility] (DEFAULT) [address] [address] CMPN WITHOUT GLUCOSEon 12-10 Albumin [Mass/Vol] 4.9 g/dL Normal 3.5-5.0 [facility] Comment on above: Performed By: #### C MPNG #### [facility] (DEFAULT) [address] [address] ALP [Catalytic activity/Vol] 69 U/L Normal 32-126 [facility] Comment on above: Performed By: #### C MPNG #### [facility] (DEFAULT) [address] [address] ALT [Catalytic activity/Vol] 52 U/L Normal 10-52 [facility] Comment on above: Performed By: #### C MPNG #### [facility] (DEFAULT) [address] [place] [address] Anion gap [Moles/Vol] 14 mmol/L Normal 7-17 [facility] Comment on above: Performed By: #### C MPNG #### [facility] (DEFAULT) [address] [place] [address] AST [Catalytic activity/Vol] 27 U/L Normal 10-39 [facility] Comment on above: Performed By: #### C MPNG #### [facility] (DEFAULT) [address] [place] [address] Bilirubin [Mass/Vol] 0.6 mg/dL Normal <1.5 [facility] Comment on above: Performed By: #### C MPNG #### [facility] (DEFAULT) [address] [place] [address] Calcium [Mass/Vol] 9.7 mg/dL Normal 8.6-10.5 [facility] Comment on above: Performed By: #### C MPNG #### [facility] (DEFAULT) [address] [place] [address] Chloride [Moles/Vol] 101 mmol/L Normal 98-108 [facility] Comment on above: Performed By: #### C MPNG #### [facility] (DEFAULT) [address] [place] [address] CO2 [Moles/Vol] 28 mmol/L Normal 21-31 [facility] Comment on above: Performed By: #### C MPNG #### [facility] (DEFAULT) [address] [place] [address] Creatinine [Mass/Vol] 1.09 mg/dL Normal 0.70-1.30 [facility] Comment on above: Performed By: #### C MPNG #### [facility] (DEFAULT) [address] [place] [address] EST GFR, >=60 Normal >=60 [facility] Comment on above: Performed By: #### C MPNG #### [facility] (DEFAULT) [address] [place] [address] EST GFR,Non >=60 Normal >=60 [facility] Comment on above: Performed By: #### C MPNG #### [facility] (DEFAULT) [address] [place] [address] Potassium [Moles/Vol] 3.4 mmol/L Low 3.5-5.0 [facility] Comment on above: Performed By: #### C MPNG #### [facility] (DEFAULT) [address] [place] [address] Protein [Mass/Vol] 7.8 g/dL Normal 6.4-8.3 [facility] Comment on above: Performed By: #### C MPNG #### [facility] (DEFAULT) [address] [place] [address] Sodium [Moles/Vol] 140 mmol/L Normal 133-143 [facility] Comment on above: Performed By: #### C MPNG #### [facility] (DEFAULT) [address] [place] [address] Urea nitrogen [Mass/Vol] 11 mg/dL Normal 7-25 [facility] Comment on above: Performed By: #### C MPNG #### [facility] (DEFAULT) [address] [place] [address] Urea nitrogen/Creatinine [Mass ratio] 10 mg/mg Normal [facility] Comment on above: Performed By: #### C MPNG #### [facility] (DEFAULT) [address] [place] [address] XR CHEST PA AND LATERALon XR CHEST [...] No active disease in the chest. Normal [facility] NM GALL BLADDER NO STIMULATI ONon 03-07-2021 [...] No evidence of bile leak. Dictated by [employer] Salesperson: Delfina Smith DO Reviewed and Signed by: Yamilka Kim MD ---- Electronic Signature on File ---- Signed By: Yamilka Kim MD [email or web address] Dictated: 03/07/2021 1:09 PM Signed: 03/07/2021 1:38 PM Reported By: YAMILKA KIM M.D. Signed By: YAMILKA KIM M.D. Normal [facility] BMPon 03-06-2021 Anion gap [Moles/Vol] 4 mmol/L Low 5-16 [facility] Comment on above: Performed By: #### L 500.09249, L500.38112, L500.42063, L500.94232 #### [facility] [address] [place] [address] Calcium [Mass/Vol] 9.7 mg/dL Normal 8.5-10.5 [facility] Comment on above: Result Comment: NOTE NEW NORMAL RANGE DUE TO REAGENT CHANGE Performed By: #### L 500.95937, L500.79863, L500.66274, L500.21031 #### [facility] [place] [address] Chloride [Moles/Vol] 106 mmol/L Normal 98-[address] [facility] Comment on above: Performed By: #### L 500.16444, L500.36823, L500.74977, L500.21178 #### [facility] [address] [place] [address] CO2 [Moles/Vol] 32.0 mmol/L Normal 21-32 [facility] Comment on above: Performed By: #### L 500.99332, L500.47047, L500.13798, L500.67328 #### [facility] [address] [place] [address] Creatinine [Mass/Vol] 1.05 mg/dL Normal 0.5-1.4 [facility] Comment on above: Result Comment: NOTE NEW NORMAL RANGE DUE TO REAGENT CHANGE Patients receiving either N-Acetylcysteine (NAC) or Metamizole prior to venipuncture, may have falsely depressed results. Performed By: #### L 500.71844, L500.68577, L500.62891, L500.67651 #### [facility] [address] [place] [address] Glucose [Mass/Vol] 108 mg/dL High 70-100 [facility] Comment on above: Result Comment: 70-1 00- Normal Fasting; 100-125 Impaired Fasting; greater than 126 on more than one result- Diabetes. ADA guidelines. Results may be falsely elevated after the administration of Sulfapyridine. Results may be falsely depressed after the administration of Sulfasalazine. Performed By: #### L 500.23389, L500.72827, L500.58076, L500.23454 #### [facility] [place] [address] Potassium [Moles/Vol] 4.9 mmol/L Normal 3.5-5.1 [facility] Comment on above: Result Comment: Slig ht Hemolysis, Result may be affected. Performed By: #### L 500.32785, L500.95748, L500.06320, L500.02971 #### [facility] [address] [place] [address] Sodium [Moles/Vol] 142 mmol/L Normal 136-145 [facility] Comment on above: Performed By: #### L 500.18409, L500.71145, L500.18703, L500.05494 #### [facility] [address] [place] [address] Urea nitrogen [Mass/Vol] 10 mg/dL Normal 7-26 [facility] Comment on above: Performed By: #### L 500.03382, L500.07473, L500.19086, L500.06677 #### [facility] [address] [place] [address] Urea nitrogen/Creatinine [Mass ratio] 10 mg/mg Low 15-24 [facility] Comment on above: Performed By: #### L 500.58060, L500.84875, L500.43152, L500.91558 #### [facility] [address] [place] [address] CBC W/DIFFon 03-06-2021 BASO ABS 0.00 K/CU MM Normal 0-0.2 [facility] Comment on above: Performed By: #### L 200.52465 #### [facility] [address] [place] [address] Basophils/100 WBC (Bld) 0.2 % Normal 0-2 [facility] Comment on above: Performed By: #### L 200.88616 #### [facility] [address] [place] [address] EOS ABS 0.10 K/CU MM Normal 0-0.5 [facility] Comment on above: Performed By: #### L 200.20266 #### [facility] [address] [place] [address] Eosinophils/100 WBC (Bld) 1.1 % Normal 0-5 [facility] Comment on above: Performed By: #### L 200.65738 #### [facility] [address] [place] [address] Erythrocyte distribution width (RBC) [Ratio] 12.2 % Normal 11-14.5 [facility] Comment on above: Performed By: #### L 200.25395 #### [facility] [address] [place] [address] Hematocrit (Bld) [Volume fraction] 42.3 % Normal 41.0-53.0 [facility] Comment on above: Performed By: #### L 200.51391 #### [facility] [address] [place] [address] Hemoglobin (Bld) [Mass/Vol] 14.3 g/dL Normal 13.5-17.5 [facility] Comment on above: Performed By: #### L 200.40052 #### [facility] [address] [place] [address] IMMATR GRAN ABS 0.00 K/CU MM Normal Less than 2 [facility] Comment on above: Performed By: #### L 200.41032 #### [facility] [address] [place] [address] IMMATURE GRAN % 0.2 % Normal Less than 2 [facility] Comment on above: Performed By: #### L 200.55062 #### [facility] [address] [place] [address] LYMPH ABS 1.50 K/CU MM Normal 0.9-4.4 [facility] Comment on above: Performed By: #### L 200.72845 #### [facility] [address] [place] [address] Lymphocytes/100 WBC (Bld) 17.8 % Low 20-40 [facility] Comment on above: Performed By: #### L 200.29653 #### [facility] [address] [place] [address] MCHC (RBC) [Mass/Vol] 33.8 g/dL Normal 32.0-36.0 [facility] Comment on above: Performed By: #### L 200.93402 #### [facility] [address] [place] [address] MCV (RBC) [Entitic vol] 95.1 fL Normal 80.0-99.0 [facility] Comment on above: Performed By: #### L 200.37270 #### [facility] [address] [place] [address] MONO ABS 0.60 K/CU MM Normal 0.1-1.1 [facility] Comment on above: Performed By: #### L 200.52460 #### [facility] [address] [place] [address] Monocytes/100 WBC (Bld) 7.2 % Normal 2-10 [facility] Comment on above: Performed By: #### L 200.33502 #### [facility] [address] [place] [address] NEUTROPHIL ABS 6.10 K/CU MM Normal 2.0-8.3 [facility] Comment on above: Performed By: #### L 200.47377 #### [facility] [address] [place] [address] Neutrophils/100 WBC (Bld) 73.5 % Normal 45-75 [facility] Comment on above: Performed By: #### L 200.64958 #### [facility] [address] [place] [address] Nucleated RBC/100 WBC (Bld) [Ratio] 0.0 % Normal Less than 1 [facility] Comment on above: Performed By: #### L 200.97842 #### [facility] [address] [place], [place] [id number] Platelet mean volume (Bld) [Entitic vol] 10.8 fL Normal 9.4-12.4 [facility] Comment on above: Performed By: #### L 200.51313 #### [facility] [address] [place] [address] PLT 303 K/CU MM Normal 150-450 [facility] Comment on above: Performed By: #### L 200.34280 #### [facility] [address] [place] [address] RBC 4.45 M/CU MM Low 4.50-6.00 [facility] Comment on above: Performed By: #### L 200.97569 #### [facility] [address] [place], [place] [address] WBC 8.3 K/CUMM Normal 4.5-11.0 [facility] Comment on above: Performed By: #### L 200.72366 #### [facility] [address] [place] [address] GFR ESTon 03-06-2021 IF AMER Greater than [address] [facility] Comment on above: Performed By: #### L 500.51777, L500.96852, L500.55187, L500.68167 #### [facility] [address] [place] [address] IF non-AFR AMER Greater than [address] [facility] Comment on above: Performed By: #### L 500.16870, L500.19618, L500.57875, L500.61386 #### [facility] [address] [place] [address] LIPASEon 03-06-2021 Lipase [Catalytic activity/Vol] 29 U/L Normal 12-60 [facility] Comment on above: Result Comment: NOTE NEW NORMAL RANGE DUE TO REAGENT CHANGE Performed By: #### L 500.13930, L500.44804, L500.55763, L500.97858 ####[id number] [place] [id number]# [phone] LIVERon 03-06-2021 Albumin [Mass/Vol] 3.9 g/dL Normal 3.2-5.0 [facility] Comment on above: Performed By: #### L 500.89340, L500.21323, L500.52802, L500.09351 #### [facility] [place] [address] Albumin/Globulin [Mass ratio] 1.4 {ratio} Normal 0.8-2.0 [facility] Comment on above: Performed By: #### L 500.38520, L500.28456, L500.66107, L500.98231 #### [facility] [address] [place] [address] ALK PHOS 87 U/L Normal 45-117 [facility] Comment on above: Performed By: #### L 500.38229, L500.88058, L500.36517, L500.70532 #### [facility] [address] [place] [address] ALT [Catalytic activity/Vol] 87 U/L High 13-61 [facility] Comment on above: Result Comment: RESU LTS MAY BE FALSELY DEPRESSED AFTER THE ADMINISTRATION OF SULFASALAZINE AND/OR SULFAPYRIDINE. Performed By: #### L 500.39206, L500.07556, L500.03340, L500.11655 #### [facility] [address] [place] [address] AST [Catalytic activity/Vol] 30 U/L Normal 8-34 [facility] Comment on above: Result Comment: RESU LTS MAY BE FALSELY DEPRESSED AFTER THE ADMINISTRATION OF SULFASALAZINE AND/OR SULFAPYRIDINE. Performed By: #### L 500.28914, L500.18798, L500.29875, L500.91140 #### [facility] [address] [place] [address] BILI DIRECT 0.5 MG/DL High 0.00-0.36 [facility] Comment on above: Result Comment: NOTE NEW NORMAL RANGE DUE TO REAGENT CHANGE Performed By: #### L 500.53437, L500.47655, L500.72200, L500.12716 #### [facility] [address] [place] [address] BILI TOTAL 1.10 MG/DL High 0.2-1.0 [facility] Comment on above: Performed By: #### L 500.53611, L500.26106, L500.32205, L500.41282 #### [facility] [address] [place] [address] Globulin (S) [Mass/Vol] 2.8 g/dL Normal 2.2-4.2 [facility] Comment on above: Performed By: #### L 500.11286, L500.31835, L500.95766, L500.72731 #### [facility] [address] [place], [place] [address] Protein [Mass/Vol] 6.7 g/dL Normal 6.0-8.5 [facility] Comment on above: Performed By: #### L 500.65355, L500.58017, L500.24943, L500.95595 #### [facility] [address] [place] [address] OR.OPRPTon 03-04-2021 Operative Report Normal [facility] OR.OPRPT [facility] Patient Name: RIAZ DIOP [address] [facility] [address] Date of : [address] [place] [address] Unit Number: [id number] Operative Report Patient Status[facility] Attending Doctor: Zay Prado MD Service Date: 03/03/212206 Operative Report Procedure Date: 03/03/21 Attending Physician: Zay Prado MD Procedure: PREOPERATIVE DIAGNOSIS: Cholelithiasis, history of acute cholecystitis. POSTOPERATIVE DIAGNOSIS: Cholelithiasis, history of acute cholecystitis. OPERATION: Laparoscopic cholecystectomy with intraoperative cholangiography using fluoroscopy. SURGEON: Zay Prado MD, [facility] ANESTHESIA: General endotracheal. INDICATIONS: The patient is [...] Zay Prado MD Verified/Reviewed by 03/03/21 2217 [facility] [place] Iverson 03-03-2021 DATE OF ADMISSION: 03/03/2021 [...] binder as needed for pain. He was [facility] PATIENT NAME: RIAZ DIOP [address] [facility] [address] [place] MEDICAL REC #: [id number] [place] [address] ADMIT DATE: DISCHARGE DATE: DISCHARGE SUMMARY ATTENDING PHY: Zay Prado MD given a prescription for Colo and also for sublingual Zofran. Zay Prado MD [id number] SSI File#: [id number] END OF DOCUMENT / CHANGE LOG FOLLOWS Last Edited By Elec. Signed By Zay Prado MD #ORLANDORU Zay Prado MD #RAMRU on 03/16/2021 00:38 ET on 03/16/2021 00:38 ET Revision Number - 2 Verified/Reviewed by 03/16/21 0038 AUGUSTO [facility] PATIENT NAME: RIAZ DIOP [address] [facility] [address] [place] MEDICAL REC #: [id number] [place] [address] ADMIT DATE: DISCHARGE DATE: DISCHARGE SUMMARY ATTENDING PHY: Zay Prado MD [facility] FLUOROSCOPY IN OR/PAIN MGTon 03-03-2021 FLUOROSCOPY [...] POLO M.D. Signed By: ANDRAE POLO M.D. [facility] HPon 03-03-2021 CHIEF COMPLAINT: Gal lstones [...] Currently include loratadine 10 mg p.o. daily. [facility] PATIENT NAME: RIAZ DIOP [address] [facility] [address] [place] MEDICAL REC #: [id number] [place] [address] ADMIT DATE: DISCHARGE DATE: HISTORY and PHYSICAL ATTENDING PHY: Zay Prado MD ALLERGIES: No known drug allergies. He avoids SHELLFISH due to severe nausea and vomiting, though he is okay with intravenous iodine-based contrast. SOCIAL HISTORY: The patient has no significant history of ethanol or tobacco use. 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 FAMILY HISTORY: Positive for coronary artery disease [...] of hemoptysis. He does snore somewhat, but [facility] PATIENT NAME: RIAZ DIOP [address] [facility] [address] [place] MEDICAL REC #: [id number] [place] [address] ADMIT DATE: DISCHARGE DATE: HISTORY and PHYSICAL [...] Chest: Symmetric. Respirations are clear to auscultation [facility] PATIENT NAME: RIAZ DIOP [address] [facility] [place] [facility] REC #: [id number] [place] [address] ADMIT DATE: DISCHARGE DATE: HISTORY and PHYSICAL [...] and choledocholith (more content not included)... Normal [facility] [place] SURG 03-03-2021 SURG ------- Patient: RIAZ [...] wall is 0.1 to 0.2 cm thick. Email Marketing Intern sections are submitted in cassette A1 including the cystic duct and cystic node. MICROSCOPIC DESCRIPTION One Cyndie stained slide examined. COPIES TO: Drew Mayen MD, Russell L MD Signed Verified/Reviewed by MELANIE ANTUNEZ MD 03/05/21 This dictation was created using voice recognition software. Phonetic and/or minor grammatical errors may exist. [facility] NAME: [facility] UNIT#: [id number] LOC: [facility] Hand Decorator: Rossana Caballero M.D. ROOM/BED: [facility] : 85 AGE/SEX: 35/M ORD.Zya Parekh MD END OF REPORT Normal [facility] [place] ERC BILIARYon 02-19-2021 ERC BILIARY REMOVAL STONE [...] ADKINS M.D. Signed By: RIAZ ADKINS M.D. [facility] GEon 02-19-2021 GASTROENTEROLOGY REPORT [facility] REMOVAL STONE BILIARY DCT PE RCon [...] ADKINS M.D. Signed By: RIAZ [facility].D. [facility]/ IV CONTRAST ONLYon 02-16-2021 [...] Date: 02/16/2021 4:48:05 AM Ordering Provider:Rafael Tucker [facility] ([place]) .Auto Diffon 02-15-2021 Ammonia (P) [Mass/Vol] 0.50 10 3/mcL Normal 0.15-1.00 [facility] ([place]) Comment on above: Performed By: #### C BC, ADIFF, ANEU, TROPHS, CMP, LIP #### [address] [address] #### GFR #### [address] [address] Basophils (Bld) [#/Vol] 0.00 10 3/mcL Normal 0.00-0.19 [facility] ([place]) Comment on above: Performed By: #### C BC, ADIFF, ANEU, TROPHS, CMP, LIP #### [place] [address] #### GFR #### [address] [address] Basophils/100 WBC (Bld) 0.7 % Normal 0.0-2.5 [facility] ([place]) Comment on above: Performed By: #### C BC, ADIFF, ANEU, TROPHS, CMP, LIP #### [place] [address] #### GFR #### [address] [address] Eosinophils (Bld) [#/Vol] 0.10 10 3/mcL Normal 0.00-0.40 [facility] ([place] Comment on above: Performed By: #### C BC, ADIFF, ANEU, TROPHS, CMP, LIP #### [place] [address] #### GFR #### [address] [address] Eosinophils/100 WBC (Bld) 0.8 % Normal 0.0-7.0 [facility] ([place] Comment on above: Performed By: #### C BC, ADIFF, ANEU, TROPHS, CMP, LIP #### [place] [address] #### GFR #### [address] [address] Lymphocytes (Bld) [#/Vol] 1.50 10 3/mcL Normal 0.77-3.85 [facility] ([place]) Comment on above: Performed By: #### C BC, ADIFF, ANEU, TROPHS, CMP, LIP #### [address] [address] #### GFR #### [address] [address] Lymphocytes/100 WBC (Bld) 22.6 % Normal 10.0-50.0 [facility] ([place]) Comment on above: Performed By: #### C BC, ADIFF, ANEU, TROPHS, CMP, LIP #### [address] [address] #### GFR #### [address] [address] Monocytes/100 WBC (Bld) 7.4 % Normal 1.7-13.0 [facility] ([place] Comment on above: Performed By: #### C BC, ADIFF, ANEU, TROPHS, CMP, LIP #### [address] [address] #### GFR #### [address] [address] Neutrophils/100 WBC (Bld) 68.5 % Normal 37.0-80.0 [facility] ([place] Comment on above: Performed By: #### C BC, ADIFF, ANEU, TROPHS, CMP, LIP #### [address] [address] #### GFR #### [address] [address] .GFRon 02-15-2021 GFR 89 ml/min/1.73sqm Normal [facility] ([place]) Comment on above: Result Comment: GFR [...] BC, ADIFF, ANEU, TROPHS, CMP, LIP #### [address] [address] #### GFR #### [address] [address] GFR Non- 73 ml/min/1.73sqm Normal [facility] ([place] Comment on above: Result Comment: GFR Population [...] BC, ADIFF, ANEU, TROPHS, CMP, LIP #### [address] [address] #### GFR #### [address] [address] .NEUABSon 02-15-2021 Neutrophils (Bld) [#/Vol] 4.50 10 3/mcL Normal 2.85-6.16 [facility] ([place]) Comment on above: Performed By: #### C BC, ADIFF, ANEU, TROPHS, CMP, LIP #### [address] [address] #### GFR #### [address] [address] CBCon 02-15-2021 Erythrocyte distribution width (RBC) [Ratio] 13.1 % Normal 11.5-14.5 [facility] ([place] Comment on above: Performed By: #### C BC, ADIFF, ANEU, TROPHS, CMP, LIP #### [place] [address] #### GFR #### [place] [address] Hematocrit (Bld) [Volume fraction] 42.9 % Normal 42.0-52.0 [facility] ([place] Comment on above: Performed By: #### C BC, ADIFF, ANEU, TROPHS, CMP, LIP #### [place] [address] #### GFR #### [place] [address] Hemoglobin (Bld) [Mass/Vol] 15.1 G/dL Normal 14.0-18.0 [facility] ([place] Comment on above: Performed By: #### C BC, ADIFF, ANEU, TROPHS, CMP, LIP #### [place] [address] #### GFR #### [place] [address] MCH (RBC) [Entitic mass] 32.0 pg High 27.0-31.2 [facility] ([place] Comment on above: Performed By: #### C BC, ADIFF, ANEU, TROPHS, CMP, LIP #### [place] [address] #### GFR #### [place] [address] MCHC (RBC) [Mass/Vol] 35.3 G/dL Normal 31.8-35.4 [facility] ([place]) Comment on above: Performed By: #### C BC, ADIFF, ANEU, TROPHS, CMP, LIP #### [place] [address] #### GFR #### [address] [address] MCV (RBC) [Entitic vol] 90.8 fL Normal 80.0-94.0 [facility] ([place] Comment on above: Performed By: #### C BC, ADIFF, ANEU, TROPHS, CMP, LIP #### [place] [address] #### GFR #### [address] [address] Platelet mean volume (Bld) [Entitic vol] 8.5 fL Normal 7.4-10.4 [facility] ([place] Comment on above: Performed By: #### C BC, ADIFF, ANEU, TROPHS, CMP, LIP #### [place] [address] #### GFR #### [address] [address] Platelets (Bld) [#/Vol] 329 10 3/mcL Normal 130-400 [facility] ([place] Comment on above: Performed By: #### C BC, ADIFF, ANEU, TROPHS, CMP, LIP #### [place] [address] #### GFR #### [address] [address] RBC (Bld) [#/Vol] 4.72 10 6/mcL Normal 4.04-6.13 [facility] ([place]) Comment on above: Performed By: #### C BC, ADIFF, ANEU, TROPHS, CMP, LIP #### [place] [address] #### GFR #### [address] [address] WBC (Bld) [#/Vol] 6.50 10 3/mcL Normal 4.60-10.80 [facility] ([place]) Comment on above: Performed By: #### C BC, ADIFF, ANEU, TROPHS, CMP, LIP #### [place] [address] #### GFR #### [address] [address] CMPon 02-15-2021 Albumin [Mass/Vol] 4.2 G/dL Normal 3.5-5.0 [facility] ([place]) Comment on above: Performed By: #### C BC, ADIFF, ANEU, TROPHS, CMP, LIP #### [place] [address] #### GFR #### [place] [address] Albumin/Globulin [Mass ratio] 1.3 {ratio} Normal 1.1-2.5 [facility] ([place] Comment on above: Performed By: #### C BC, ADIFF, ANEU, TROPHS, CMP, LIP #### [place] [address] #### GFR #### [place] [address] ALP [Catalytic activity/Vol] 121 U/L Normal 40-135 [facility] ([place]) Comment on above: Performed By: #### C BC, ADIFF, ANEU, TROPHS, CMP, LIP #### [place] [address] #### GFR #### [place] [address] ALT [Catalytic activity/Vol] 560 U/L High 16-63 [facility] ([place] Comment on above: Performed By: #### C BC, ADIFF, ANEU, TROPHS, CMP, LIP #### [address] [address] #### GFR #### [place] [id number] AST [Catalytic activity/Vol] 316 U/L High 10-40 [facility] ([place] Comment on above: Performed By: #### C BC, ADIFF, ANEU, TROPHS, CMP, LIP #### [place] [address] #### GFR #### [address] [address] Bili Total 4.4 mg/dL High 0.2-1.0 [facility] ([place]) Comment on above: Result Comment: Use of this assay is not recommended for patients undergoing treatment with eltrombopag due to the potential for falsely elevated results. Performed By: #### C BC, ADIFF, ANEU, TROPHS, CMP, LIP #### [place] [address] #### GFR #### [address] [address] Calcium [Mass/Vol] 9.4 mg/dL Normal 8.4-10.2 [facility] ([place]) Comment on above: Performed By: #### C BC, ADIFF, ANEU, TROPHS, CMP, LIP #### [place] [address] #### GFR #### [place] [address] Chloride [Moles/Vol] 103 mmol/L Normal 98-107 [facility] ([place]) Comment on above: Performed By: #### C BC, ADIFF, ANEU, TROPHS, CMP, LIP #### [place] [address] #### GFR #### [place] [address] CO2 [Moles/Vol] 27 mmol/L Normal 22-29 [facility] ([place] Comment on above: Performed By: #### C BC, ADIFF, ANEU, TROPHS, CMP, LIP #### [place] [address] #### GFR #### [address] [address] Creatinine [Mass/Vol] 1.14 mg/dL Normal 0.70-1.30 [facility] ([place]) Comment on above: Performed By: #### C BC, ADIFF, ANEU, TROPHS, CMP, LIP #### [place] [address] #### GFR #### [address] [address] Electrolyte Balance 12.0 mEq/L Normal [facility] ([place]) Comment on above: Performed By: #### C BC, ADIFF, ANEU, TROPHS, CMP, LIP #### [address] [address] #### GFR #### [address] [address] Globulin (S) [Mass/Vol] 3.2 G/dL Normal [facility] ([place] Comment on above: Performed By: #### C BC, ADIFF, ANEU, TROPHS, CMP, LIP #### [address] [address] #### GFR #### [address] [address] Glucose [Mass/Vol] 98 mg/dL Normal 70-105 [facility] ([place]) Comment on above: Performed By: #### C BC, ADIFF, ANEU, TROPHS, CMP, LIP #### [address] [address] #### GFR #### [address] [address] Potassium [Moles/Vol] 4.1 mmol/L Normal 3.5-5.1 [facility] ([place]) Comment on above: Performed By: #### C BC, ADIFF, ANEU, TROPHS, CMP, LIP #### [address] [address] #### GFR #### [address] [address] Protein [Mass/Vol] 7.4 G/dL Normal 6.4-8.2 [facility] ([place]) Comment on above: Performed By: #### C BC, ADIFF, ANEU, TROPHS, CMP, LIP #### [address] [address] #### GFR #### [address] [address] Sodium [Moles/Vol] 142 mmol/L Normal 136-145 [facility] ([place]) Comment on above: Performed By: #### C BC, ADIFF, ANEU, TROPHS, CMP, LIP #### [address] [address] #### GFR #### [address] [address] Urea nitrogen [Mass/Vol] 11 mg/dL Normal 7-18 [facility] ([place] Comment on above: Performed By: #### C BC, ADIFF, ANEU, TROPHS, CMP, LIP #### [address] [address] #### GFR #### [place] [address] Urea nitrogen/Creatinine [Mass ratio] 10 ratio Normal 7-27 [facility] ([place] Comment on above: Performed By: #### C BC, ADIFF, ANEU, TROPHS, CMP, LIP #### [place] [address] #### GFR #### [place] [address] LIPon 02-15-2021 Lipase Level 112 U/L Normal 73-393 [facility] ([place] Comment on above: Performed By: #### C BC, ADIFF, ANEU, TROPHS, CMP, LIP #### [place] [address] #### GFR #### [place] [address] TROPHSon 02-15-2021 Troponin I High Sensitivity 4.8 ng/L Normal 0.0-76.2 [facility] ([place] Comment on above: Performed By: #### C BC, ADIFF, ANEU, TROPHS, CMP, LIP #### [place] [address] #### GFR #### [place] [address] XR CHEST 2 VIEWSon XR CHEST 2 [...] Date: 02/15/2021 6:02:27 PM Ordering Provider:Rafael Tucker [facility] ([place]) Stool gastrointestinal hemog lobin detection by immunologic method Lower GI hemoglobin IA Ql (Stl) [facility] Work Phone: Vital Signs Date Time Vital Sign Value Performing Clinician Facility 07-11-2025 08:140400 Body height 193.[address] Drew Mayen MD Work Phone: [facility] 07-11-2025 08:14-0400 Body mass index (BMI) [Ratio] 39.3 kg/m2 Dr. Drew Mayen MD Work Phone: [facility] 07-11-2025 08:14-0400 Body temperature 97.8 [degF] Dr. Drew Mayen MD Work Phone: [facility] 07-11-2025 08:14-0400 Body weight 146.[address] Drew Mayen MD Work Phone: [facility] 07-11-2025 08:14-0400 Diastolic blood pressure 72 mm[Hg] Dr. Drew Mayen MD Work Phone: [facility] 07-11-2025 08:14-0400 Heart rate 78 /min Dr. Drew Mayen MD Work Phone: [facility] 07-11-2025 08:14-0400 Respiratory rate 16 /min Dr. Drew Mayen MD Work Phone: [facility] 07-11-2025 08:14-0400 SaO2% (BldA) [Mass fraction] 97 % Dr. Drew Mayen MD Work Phone: [facility] 07-11-2025 08:14-0400 Systolic blood pressure 128 mm[Hg] Dr. Drew Mayen MD Work Phone: [facility] 05-09-2025 14:31-0400 Body height 193.[address] Drew Mayen MD Work Phone: [facility] 05-09-2025 14:31-0400 Body mass index (BMI) [Ratio] 39.8 kg/m2 Dr. Drew Mayen MD Work Phone: [facility] 05-09-2025 14:31-0400 Body temperature 97.8 [degF] Dr. Drew Mayen MD Work Phone: [facility] 05-09-2025 14:31-0400 Body weight 148.[address] Drew Mayen MD Work Phone: [facility] 05-09-2025 14:31-0400 Diastolic blood pressure 80 mm[Hg] Dr. Drew Mayen MD Work Phone: [facility] 05-09-2025 14:31-0400 Heart rate 96 /min Dr. Drew Mayen MD Work Phone: [facility] 05-09-2025 14:31-0400 Respiratory rate 18 /min Dr. Drew Mayen MD Work Phone: [facility] 05-09-2025 14:31-0400 SaO2% (BldA) [Mass fraction] 98 % Dr. Drew Mayen MD Work Phone: [facility] 05-09-2025 14:31-0400 Systolic blood pressure 142 mm[Hg] Dr. Drew Mayen MD Work Phone: [facility] 02-07-2025 13:41-0400 Body mass index (BMI) [Ratio] 39.2 kg/m2 Dr. Drew Mayen MD Work Phone: [facility] 02-07-2025 13:41-0400 Body temperature 98.6 [degF] Dr. Drew Mayen MD Work Phone: [facility] 02-07-2025 13:41-0400 Body weight 146.[address] Drew Mayen MD Work Phone: [facility] 02-07-2025 13:41-0400 Diastolic blood pressure 96 mm[Hg] Dr. Drew Mayen MD Work Phone: [facility] 02-07-2025 13:41-0400 Heart rate 96 /min Dr. Drew Mayen MD Work Phone: [facility] 02-07-2025 13:41-0400 Respiratory rate 14 /min Dr. Drew Mayen MD Work Phone: [facility] 02-07-2025 13:41-0400 SaO2% (BldA) [Mass fraction] 99 % Dr. Drew Mayen MD Work Phone: [facility] 02-07-2025 13:41-0400 Systolic blood pressure 144 mm[Hg] Dr. Drew Mayen MD Work Phone: [facility] 01-31-2025 18:37-0500 Body temperature 97.6 [degF] Dr. Drew Mayen MD Work Phone: [facility] 01-31-2025 18:37-0500 Diastolic blood pressure 85 mm[Hg] Dr. Drew Mayen MD Work Phone: [facility] 01-31-2025 18:37-0500 Heart rate 85 /min Dr. Drew Mayen MD Work Phone: [facility] 01-31-2025 18:37-0500 Respiratory rate 16 /min Dr. Drew Mayen MD Work Phone: [facility] 01-31-2025 18:37-0500 SaO2% (BldA) [Mass fraction] 97 % Dr. Drew Mayen MD Work Phone: [facility] 01-31-2025 18:37-0500 Systolic blood pressure 165 mm[Hg] Dr. Drew Mayen MD Work Phone: [facility] 01-31-2025 14:51-0500 Body mass index (BMI) [Ratio] 38.9 kg/m2 Dr. Drew Mayen MD Work Phone: [facility] 01-31-2025 14:51-0500 Body weight 145.[address] Drew Mayen MD Work Phone: [facility] 05-19-2024 09:45-0400 Body temperature 97.11 [degF] Vinnie Hernandez MD Work Phone: [facility] 05-19-2024 09:45-0400 Body weight 147 kg Vinnie Hernandez MD Work Phone: [facility] 05-19-2024 09:45-0400 Diastolic blood pressure 90 mm[Hg] Vinnie Hernadnez MD Work Phone: [facility] 05-19-2024 09:45-0400 Heart rate 101 /min Vinnie Hernandez MD Work Phone: [facility] 05-19-2024 09:45-0400 Respiratory rate 18 /min Vinnie Hernandez MD Work Phone: [facility] 05-19-2024 09:45-0400 SaO2% (BldA) [Mass fraction] 98 % Vinnie Hernandez MD Work Phone: [facility] 05-19-2024 09:45-0400 Systolic blood pressure 144 mm[Hg] Vinnie Hernandez MD Work Phone: [facility] 02-16-2024 14:02-0400 Body height 193.[address] Drew Mayen Work Phone: [facility] 02-16-2024 14:02-0400 Body mass index (BMI) [Ratio] 39.2 kg/m2 Dr. Drew Mayen Work Phone: [facility] 02-16-2024 14:02-0400 Body temperature 97.8 [degF] Dr. Drew Mayen Work Phone: [facility] 02-16-2024 14:02-0400 Body weight 146.[address] Drew Mayen Work Phone: [facility] 02-16-2024 14:02-0400 Diastolic blood pressure 88 mm[Hg] Dr. Drew Mayen Work Phone: [facility] 02-16-2024 14:02-0400 Heart rate 94 /min Dr. Drew Mayen Work Phone: [facility] 02-16-2024 14:02-0400 Respiratory rate 17 /min Dr. Drew Mayen Work Phone: [facility] 02-16-2024 14:02-0400 SaO2% (BldA) [Mass fraction] 98 % Dr. Drew Mayen Work Phone: [facility] 02-16-2024 14:02-0400 Systolic blood pressure 144 mm[Hg] Dr. Drew Mayen Work Phone: [facility] 01-12-2024 09:46-0500 Body height 193.[address] Drew Mayen Work Phone: [facility] 01-12-2024 09:46-0500 Body mass index (BMI) [Ratio] 39.4 kg/m2 Dr. Drew Maeyn Work Phone: [facility] 01-12-2024 09:46-0500 Body temperature 97.6 [degF] Dr. Drew Mayen Work Phone: [facility] 01-12-2024 09:46-0500 Body weight 146.[address] Drew Mayen Work Phone: [facility] 01-12-2024 09:46-0500 Diastolic blood pressure 92 mm[Hg] Dr. Drew Mayen Work Phone: [facility] 01-12-2024 09:46-0500 Heart rate 74 /min Dr. Drew Mayen Work Phone: [facility] 01-12-2024 09:46-0500 Respiratory rate 14 /min Dr. Drew Mayen Work Phone: [facility] 01-12-2024 09:46-0500 SaO2% (BldA) [Mass fraction] 96 % Dr. Drew Mayen Work Phone: [facility] 01-12-2024 09:46-0500 Systolic blood pressure 142 mm[Hg] Dr. Drew Mayen Work Phone: [facility] 01-10-2024 12:45-0500 Body temperature 97.4 [degF] Dr. Drew Mayen Work Phone: [facility] 01-10-2024 12:45-0500 Diastolic blood pressure 82 mm[Hg] Dr. Drew Mayen Work Phone: [facility] 01-10-2024 12:45-0500 Heart rate 86 /min Dr. Drew Mayen Work Phone: [facility] 01-10-2024 12:45-0500 Respiratory rate 16 /min Dr. Drew Mayen Work Phone: [facility] 01-10-2024 12:45-0500 SaO2% (BldA) [Mass fraction] 94 % Dr. Drew Mayen Work Phone: [facility] 01-10-2024 12:45-0500 Systolic blood pressure 124 mm[Hg] Dr. Drew Mayen Work Phone: [facility] 01-10-2024 10:30-0500 Inhaled oxygen flow rate 8 L/min Dr. Drew Mayen Work Phone: [facility] 01-10-2024 06:33-0500 Body height 193.[address] Drew Mayen Work Phone: [facility] 01-10-2024 06:33-0500 Body mass index (BMI) [Ratio] 39.2 kg/m2 Dr. Drew Mayen Work Phone: [facility] 01-10-2024 06:33-0500 Body weight [address] Drew Mayen Work Phone: [facility] 12-06-2023 15:01-0500 Body height 193.[address] Drew Mayen Work Phone: [facility] 12-06-2023 15:01-0500 Body mass index (BMI) [Ratio] 38.5 kg/m2 Dr. Drew Mayen Work Phone: [facility] 12-06-2023 15:01-0500 Body temperature 97.4 [degF] Dr. Drew Mayen Work Phone: [facility] 12-06-2023 15:01-0500 Body weight 143.[address] Drew Mayen Work Phone: [facility] 12-06-2023 15:01-0500 Diastolic blood pressure 84 mm[Hg] Dr. Drew Mayen Work Phone: [facility] 12-06-2023 15:01-0500 Heart rate 89 /min Dr. Drew Mayen Work Phone: [facility] 12-06-2023 15:01-0500 Respiratory rate 18 /min Dr. Drew Mayen Work Phone: [facility] 12-06-2023 15:01-0500 SaO2% (BldA) [Mass fraction] 97 % Dr. Drew Mayen Work Phone: [facility] 12-06-2023 15:01-0500 Systolic blood pressure 140 mm[Hg] Dr. Drew Mayen Work Phone: [facility] 11-17-2023 11:08-0500 Body temperature 98.1 [degF] Dr. Drew Mayen Work Phone: [facility] 11-17-2023 11:08-0500 Diastolic blood pressure 78 mm[Hg] Dr. Drew Mayen Work Phone: [facility] 11-17-2023 11:08-0500 Heart rate 86 /min Dr. Drew Mayen Work Phone: [facility] 11-17-2023 11:08-0500 Respiratory rate 16 /min Dr. Drew Mayen Work Phone: [facility] 11-17-2023 11:08-0500 SaO2% (BldA) [Mass fraction] 95 % Dr. Drew Mayen Work Phone: [facility] 11-17-2023 11:08-0500 Systolic blood pressure 143 mm[Hg] Dr. Drew Mayen Work Phone: [facility] 11-17-2023 09:35-0500 Body temperature 98.7 [degF] Dr. Drew Mayen Work Phone: [facility] 11-17-2023 09:35-0500 Diastolic blood pressure 82 mm[Hg] Dr. Drew Mayen Work Phone: [facility] 11-17-2023 09:35-0500 Heart rate 79 /min Dr. Drew Mayen Work Phone: [facility] 11-17-2023 09:35-0500 Respiratory rate 16 /min Dr. Drew Mayen Work Phone: [facility] 11-17-2023 09:35-0500 SaO2% (BldA) [Mass fraction] 97 % Dr. Drew Mayen Work Phone: [facility] 11-17-2023 09:35-0500 Systolic blood pressure 145 mm[Hg] Dr. Drew Mayen Work Phone: [facility] 11-17-2023 05:58-0500 Inhaled oxygen flow rate 2 L/min Dr. Drew Mayen Work Phone: [facility] 11-16-2023 15:26-0500 Body height 193.[address] Drew Mayen Work Phone: [facility] 11-16-2023 15:26-0500 Body mass index (BMI) [Ratio] 39.2 kg/m2 Dr. Drew Mayen Work Phone: [facility] 11-16-2023 15:26-0500 Body weight 146.[address] Drew Mayen Work Phone: [facility] 11-16-2023 13:20-0500 Diastolic blood pressure 84 mm[Hg] Dr. Drew Mayen Work Phone: [facility] 11-16-2023 13:20-0500 Heart rate 74 /min Dr. Drew Myaen Work Phone: [facility] 11-16-2023 13:20-0500 Respiratory rate 16 /min Dr. Drew Mayen Work Phone: [facility] 11-16-2023 13:20-0500 SaO2% (BldA) [Mass fraction] 98 % Dr. Drew Mayen Work Phone: [facility] 11-16-2023 13:20-0500 Systolic blood pressure 139 mm[Hg] Dr. Drew Mayen Work Phone: [facility] 11-16-2023 09:33-0500 Body height 193.[address] Drew Mayen Work Phone: [facility] 11-16-2023 09:33-0500 Body mass index (BMI) [Ratio] 39.4 kg/m2 Dr. Drew Mayen Work Phone: [facility] 11-16-2023 09:33-0500 Body temperature 97.8 [degF] Dr. Drew Mayen Work Phone: [facility] 11-16-2023 09:33-0500 Body weight 147.[address] Drew Mayen Work Phone: [facility] 10-11-2023 08:44-0500 Body height 193.[address] Drew Mayen Work Phone: [facility] 10-11-2023 08:44-0500 Body mass index (BMI) [Ratio] 38.7 kg/m2 Dr. Drew Mayen Work Phone: [facility] 10-11-2023 08:44-0500 Body temperature 97.4 [degF] Dr. Drew Mayen Work Phone: [facility] 10-11-2023 08:44-0500 Body weight 144.[address] Drew Mayen Work Phone: [facility] 10-11-2023 08:44-0500 Diastolic blood pressure 82 mm[Hg] Dr. Drew Mayen Work Phone: [facility] 10-11-2023 08:44-0500 Heart rate 82 /min Dr. Drew Mayen Work Phone: [facility] 10-11-2023 08:44-0500 Respiratory rate 16 /min Dr. Drew Mayen Work Phone: [facility] 10-11-2023 08:44-0500 SaO2% (BldA) [Mass fraction] 97 % Dr. Drew Mayen Work Phone: [facility] 10-11-2023 08:44-0500 Systolic blood pressure 130 mm[Hg] Dr. Drew Mayen Work Phone: [facility] 07-14-2023 10:05-0400 Body temperature 98.7 [degF] Dr. Drew Mayen Work Phone: [facility] 07-14-2023 10:05-0400 Body weight 140.[address] Drew Mayen Work Phone: [facility] 07-14-2023 10:05-0400 Diastolic blood pressure 94 mm[Hg] Dr. Drew Mayen Work Phone: [facility] 07-14-2023 10:05-0400 Heart rate 94 /min Dr. Drew Mayen Work Phone: [facility] 07-14-2023 10:05-0400 Respiratory rate 16 /min Dr. Drew Mayen Work Phone: [facility] 07-14-2023 10:05-0400 SaO2% (BldA) [Mass fraction] 96 % Dr. Drew Mayen Work Phone: [facility] 07-14-2023 10:05-0400 Systolic blood pressure 142 mm[Hg] Dr. Drew Mayen Work Phone: [facility] 07-09-2023 13:21-0400 Body height 193.[address] Drew Mayen Work Phone: [facility] 07-09-2023 13:21-0400 Body mass index (BMI) [Ratio] 38 kg/m2 Dr. Drew Mayen Work Phone: [facility] 07-09-2023 13:21-0400 Body temperature 98.8 [degF] Dr. Drew Mayen Work Phone: [facility] 07-09-2023 13:21-0400 Body weight 141.[address] Drew Mayen Work Phone: [facility] 07-09-2023 13:21-0400 Diastolic blood pressure 88 mm[Hg] Dr. Drew Mayen Work Phone: [facility] 07-09-2023 13:21-0400 Heart rate 69 /min Dr. Drew Mayen Work Phone: [facility] 07-09-2023 13:21-0400 Respiratory rate 16 /min Dr. Drew Mayen Work Phone: [facility] 07-09-2023 13:21-0400 SaO2% (BldA) [Mass fraction] 98 % Dr. Drew Mayen Work Phone: [facility] 07-09-2023 13:21-0400 Systolic blood pressure 148 mm[Hg] Dr. Drew Maeyn Work Phone: [facility] 06-07-2023 13:32-0400 Body mass index (BMI) [Ratio] 38.2 kg/m2 Dr. Drew Mayen Work Phone: [facility] 06-07-2023 13:32-0400 Body temperature 97.9 [degF] Dr. Drew Mayen Work Phone: [facility] 06-07-2023 13:32-0400 Body weight 142.[address] Drew Mayen Work Phone: [facility] 06-07-2023 13:32-0400 Diastolic blood pressure 96 mm[Hg] Dr. Drew Mayen Work Phone: [facility] 06-07-2023 13:32-0400 Heart rate 94 /min Dr. Drew Mayen Work Phone: [facility] 06-07-2023 13:32-0400 Respiratory rate 18 /min Dr. Drew Mayen Work Phone: [facility] 06-07-2023 13:32-0400 SaO2% (BldA) [Mass fraction] 96 % Dr. Drew Mayen Work Phone: [facility] 06-07-2023 13:32-0400 Systolic blood pressure 140 mm[Hg] Dr. Drew Mayen Work Phone: [facility] 06-01-2023 09:35-0400 Body temperature 98.4 [degF] Dr. Drew Mayen Work Phone: [facility] 06-01-2023 09:35-0400 Diastolic blood pressure 80 mm[Hg] Dr. Drew Mayen Work Phone: [facility] 06-01-2023 09:35-0400 Heart rate 93 /min Dr. Drew Mayen Work Phone: [facility] 06-01-2023 09:35-0400 Respiratory rate 17 /min Dr. Drew Mayen Work Phone: [facility] 06-01-2023 09:35-0400 SaO2% (BldA) [Mass fraction] 98 % Dr. Drew Mayen Work Phone: [facility] 06-01-2023 09:35-0400 Systolic blood pressure 138 mm[Hg] Dr. Drew Mayen Work Phone: [facility] 06-01-2023 06:00-0400 Body mass index (BMI) [Ratio] 39.6 kg/m2 Dr. Drew Mayen Work Phone: [facility] 06-01-2023 06:00-0400 Body weight 147.[address] Drew Mayen Work Phone: [facility] 05-31-2023 13:56-0400 Body height 193.[address] Drew Mayen Work Phone: [facility] 05-30-2023 02:55-0400 Body temperature 99.2 [degF] Dr. Drew Mayen Work Phone: [facility] 05-30-2023 02:55-0400 Diastolic blood pressure 79 mm[Hg] Dr. Drew Mayen Work Phone: [facility] 05-30-2023 02:55-0400 Heart rate 97 /min Dr. Drew Mayen Work Phone: [facility] 05-30-2023 02:55-0400 Respiratory rate 16 /min Dr. Drew Mayen Work Phone: [facility] 05-30-2023 02:55-0400 SaO2% (BldA) [Mass fraction] 99 % Dr. Drew Mayen Work Phone: [facility] 05-30-2023 02:55-0400 Systolic blood pressure 146 mm[Hg] Dr. Drew Mayen Work Phone: [facility] 05-29-2023 22:14-0400 Body height 193.[address] Drew Mayen Work Phone: [facility] 05-29-2023 22:14-0400 Body mass index (BMI) [Ratio] 39.2 kg/m2 Dr. Drew Mayen Work Phone: [facility] 05-29-2023 22:14-0400 Body weight 146.[address] Drew Mayen Work Phone: [facility] 04-12-2023 08:50-0400 Body mass index (BMI) [Ratio] 38 kg/m2 Dr. Drew Mayen Work Phone: [facility] 04-12-2023 08:50-0400 Body temperature 97.8 [degF] Dr. Drew Mayen Work Phone: [facility] 04-12-2023 08:50-0400 Body weight 141.[address] Drew Mayen Work Phone: [facility] 04-12-2023 08:50-0400 Diastolic blood pressure 82 mm[Hg] Dr. Drew Mayen Work Phone: [facility] 04-12-2023 08:50-0400 Heart rate 85 /min Dr. Drew Mayen Work Phone: [facility] 04-12-2023 08:50-0400 Respiratory rate 12 /min Dr. Drew Mayen Work Phone: [facility] 04-12-2023 08:50-0400 SaO2% (BldA) [Mass fraction] 96 % Dr. Drew Mayen Work Phone: [facility] 04-12-2023 08:50-0400 Systolic blood pressure 146 mm[Hg] Dr. Drew Mayen Work Phone: [facility] 03-08-2023 11:07-0400 Body mass index (BMI) [Ratio] 38 kg/m2 Dr. Drew Mayen Work Phone: [facility] 03-08-2023 11:07-0400 Body temperature 98.1 [degF] Dr. Drew Mayen Work Phone: [facility] 03-08-2023 11:07-0400 Body weight 141.[address] Drew Mayen Work Phone: [facility] 03-08-2023 11:07-0400 Diastolic blood pressure 82 mm[Hg] Dr. Drew Mayen Work Phone: [facility] 03-08-2023 11:07-0400 Heart rate 77 /min Dr. Drew Mayen Work Phone: [facility] 03-08-2023 11:07-0400 Respiratory rate 14 /min Dr. Drew Mayen Work Phone: [facility] 03-08-2023 11:07-0400 SaO2% (BldA) [Mass fraction] 97 % Dr. Drew Mayen Work Phone: [facility] 03-08-2023 11:07-0400 Systolic blood pressure 128 mm[Hg] Dr. Drew Mayen Work Phone: [facility] 11-24-2022 13:28-0500 Body temperature 97.9 [degF] Dr. Drew Mayen Work Phone: [facility] Work Phone: 11-24-2022 13:28-0500 Diastolic blood pressure 74 mm[Hg] Dr. Drew Mayen Work Phone: [facility] Work Phone: 11-24-2022 13:28-0500 Heart rate 97 /min Dr. Drew Mayen Work Phone: [facility] Work Phone: 11-24-2022 13:28-0500 Respiratory rate 16 /min Dr. Drew Mayen Work Phone: [facility] Work Phone: 11-24-2022 13:28-0500 SaO2% (BldA) [Mass fraction] 98 % Dr. Drew Mayen Work Phone: [facility] Work Phone: 11-24-2022 13:28-0500 Systolic blood pressure 146 mm[Hg] Dr. Drew Mayen Work Phone: [facility] Work Phone: 11-24-2022 05:58-0500 Body weight 142.[address] Drew Mayen Work Phone: [facility] Work Phone: 11-23-2022 22:54-0500 Body height 193.[address] Drew Mayen Work Phone: [facility] Work Phone: 11-23-2022 22:54-0500 Body mass index (BMI) [Ratio] 38.8 kg/m2 Dr. Drew Mayen Work Phone: [facility] Work Phone: 11-23-2022 22:24-0500 Body temperature 97.6 [degF] [facility] Work Phone: 11-23-2022 22:24-0500 Diastolic blood pressure 79 mm[Hg] [facility] Work Phone: 11-23-2022 22:24-0500 Heart rate 100 /min [facility] Work Phone: 11-23-2022 22:24-0500 Respiratory rate 17 /min [facility] Work Phone: 11-23-2022 22:24-0500 SaO2% (BldA) [Mass fraction] 98 % [facility] Work Phone: 11-23-2022 22:24-0500 Systolic blood pressure 143 mm[Hg] [facility] Work Phone: 11-23-2022 19:45-0500 Body height 193.[address] [facility] Work Phone: 11-23-2022 19:45-0500 Body mass index (BMI) [Ratio] 38.3 kg/m2 [facility] Work Phone: 11-23-2022 19:45-0500 Body weight 142.[address] [facility] Work Phone: 04-29-2022 07:57-0400 Body mass index (BMI) [Ratio] 37.15 kg/m2 Trinidad Weems MD Work Phone: [facility] 04-29-2022 07:57-0400 Body weight 138.44 kg Trinidad Weems MD Work Phone: [facility] 02-04-2022 11:34-0500 Body temperature 96.69 [degF] Trinidad Weems MD Work Phone: [facility] 02-04-2022 11:34-0500 Diastolic blood pressure 94 mm[Hg] Trinidad Weems MD Work Phone: [facility] 02-04-2022 11:34-0500 Heart rate 130 /min Trinidad Weems MD Work Phone: [facility] 02-04-2022 11:34-0500 Respiratory rate 16 /min Trinidad Weems MD Work Phone: [facility] 02-04-2022 11:34-0500 Systolic blood pressure 152 mm[Hg] Trinidad Weems MD Work Phone: [facility] Encounters Encounter Date Encounter Type Care Provider Facility Start: 07-11-2025 End: 07-11-[address] Drew Mayen MD -[facility] Work Phone: Start: 07-11-2025 End: 07-11-[address] Drew Mayen MD Work Phone: -[facility] Start: 05-09-2025 End: 05-09-[address] rDew Mayen MD -[facility] Work Phone: Start: 05-09-2025 End: 05-09-[address] Drew Mayen MD Work Phone: [facility] Work Phone: Start: 02-07-2025 End: 02-07-2025 Patient encounter procedure Telly SORIANO -[facility] Work Phone: Start: 02-07-2025 End: 02-07-2025 ambulatory Drew Mayen Facility:[facility] Start: 01-31-2025 End: 01-31-2025 Emergency department patient visit Dr. Ruiz Schwartz MD -Emergency Department Work Phone: Start: 05-19-2024 End: 05-19-2024 ambulatory DREW MAYEN Facility:[facility] Start: 05-19-2024 End: 05-19-2024 Patient encounter procedure Vinnie Hernandez MD Work Phone: [facility] Comment on above: Acute otitis media, right (Primary Dx) Start: 02-18-2024 End: 02-18-[address] Drew Mayen Work Phone: [facility] Work Phone: Start: 02-18-2024 End: 02-18-[address] Drew Mayen Work Phone: [facility] Work Phone: Start: 02-16-2024 End: 02-16-[address] Drew Mayen Work Phone: [facility] Work Phone: Start: 02-09-2024 End: 02-09-[address] Drew Mayen Work Phone: [facility] Work Phone: Start: 01-19-2024 End: 01-19-[address] Drew Mayen Work Phone: [facility] Work Phone: Start: 01-12-2024 End: 01-12-[address] Drew Mayen Work Phone: [facility] Work Phone: Start: 01-12-2024 End: 01-12-[address] Drew Mayen Work Phone: [facility] Work Phone: Start: 01-10-2024 Non-patient / Non-visit Dr. Zayra Mayen Work Phone: [facility] Start: 01-10-2024 End: 01-10-2024 Admission to same day surgery center [facility] Start: 01-10-2024 End: 01-10-[address] Drew Mayen Work Phone: [facility] Work Phone: Start: 12-06-2023 End: 12-06-[address] Drew Mayen Work Phone: [facility] Work Phone: Start: 12-06-2023 End: 12-06-[address] Drew Mayen Work Phone: [facility] Work Phone: Start: 11-17-2023 Non-patient / Non-visit Dr. Zayra Mayen Work Phone: [facility] Start: 11-16-2023 Non-patient / Non-visit Dr. Zayra Mayen Work Phone: [facility] Start: 11-16-2023 End: 11-17-2023 Evaluation and management of inpatient Dr. [facility] Work [facility]: Start: 11-16-2023 End: 11-17-[address] Drew Mayen Work Phone: [facility] Work Phone: Start: 10-11-2023 End: 10-11-[address] Drew Mayen Work Phone: [facility] Work Phone: Start: 10-11-2023 End: 10-11-[address] Drew Mayen Work Phone: [facility] Work Phone: Start: 07-21-2023 Non-patient / Non-visit Dr. Zayra Mayen Work Phone: [facility] Start: 07-21-2023 End: 07-21-[address] Drew Mayen Work Phone: [facility] Work Phone: Start: 07-21-2023 End: 07-21-[address] [facility] Start: 07-14-2023 End: 07-14-[address] Drew Mayen Work Phone: [facility] Work Phone: Start: 07-09-2023 End: 07-09-[address] Drew Mayen Work Phone: [facility] Work Phone: Start: 06-07-2023 End: 06-07-[address] Drew Mayen Work Phone: [facility] Work Phone: Start: 06-01-2023 Non-patient / Non-visit Dr. Zayra Mayen Work Phone: [facility] Work Phone: Start: 05-31-2023 Non-patient / Non-visit Dr. Zayra Mayen Work Phone: [facility] Work Phone: Start: 05-30-2023 Non-patient / Non-visit Dr. Zayra Mayen Work Phone: [facility] Start: 05-30-2023 End: 06-01-2023 Evaluation and management of inpatient Dr. Drew Mayen Work Phone: [facility] Work Phone: Start: 05-29-2023 End: 05-30-2023 Emergency department patient visit Dr. Drew Mayen Work Phone: [facility] Work Phone: Start: 05-25-[address] Davy Mayen Work Phone: [facility] Work Phone: Start: 04-12-2023 End: 04-12-[address] Drew Mayen Work Phone: [facility] Work Phone: Start: 03-08-2023 End: 03-08-[address] Drew Mayen Work Phone: [facility] Work Phone: Start: 11-24-2022 Non-patient / Non-visit Dr. Zayra Mayen Work Phone: [facility] Start: 11-23-2022 End: 11-24-2022 Evaluation and management of inpatient [facility] Start: 11-23-2022 End: 11-24-[address] Drew Mayen Work Phone: [facility] Work Phone: Start: 04-29-2022 ambulatory TRINIDAD WEEMS Facility :[facility] Start: 04-29-2022 End: 04-29-2022 Postop follow up visit related to original px Trinidad Weems MD Work Phone: [facility] Comment on above: Malignant melanoma o f right lower extremity including hip (Primary Dx) Start: 03-18-2022 ambulatory TRINIDAD WEEMS Facility :[facility] Start: 03-18-2022 End: 03-18-2022 Patient encounter procedure Trinidad Weems MD Work Phone: [facility] [place] Comment on above: S/P split thickness skin graft (Primary Dx); Encounter for follow-up; Malignant melanoma of right lower extremity including hip Start: 02-25-2022 ambulatory EFEWONGBE B OLEGHE Faci lity:[facility] Start: 02-18-2022 ambulatory EFEWONGBE B OLEGHE Faci lity:[facility] Start: 02-10-2022 End: 02-10-2022 ambulatory EFEWONGBE B HUMBERTOE Facility:[facility] Start: 02-04-2022 ambulatory EFEWONGBE B OLEGHE Faci lity:[facility] Start: 02-04-2022 End: 02-04-2022 Patient encounter procedure Trinidad Weems MD Work Phone: [facility] [place] Comment on above: Malignant melanoma, unspecified site (Primary Dx) Start: 01-28-2022 ambulatory EFEWONGBE B OLEGHE Faci lity:[facility] Start: 01-23-2022 End: 01-23-2022 ambulatory EFEWONGBE B HUMBERTOE Facility:[facility] Start: 01-08-2022 Evaluation and management of inpatient DREW MAYEN Facility:[facility] Start: 01-07-2022 ambulatory SELF SELF Facility:[facility] Start: 01-07-2022 ambulatory DREW Lamas lity:[facility] Start: 01-06-2022 ambulatory TRINIDAD WEEMS Facility :[facility] Start: 12-26-2021 End: 12-26-2021 ambulatory DREW PAULCorinne Facility:[facility] Start: 12-24-2021 ambulatory DREW Lamas lity:[facility] Start: 12-10-2021 ambulatory JOSE JUDD Facility: [facility] Start: 12-10-2021 ambulatory DREW Lamas lity:[facility] Procedures Date Procedure Procedure Detail Performing Clinician [...] Date Care Activity Detail Author Start: 01-31-2025 [facility] Start: 07-30-2024 Influenza vaccination Influenza Vaccine (Season Ended) [facility] Start: 01-10-2024 Anesthesia hernia repair lower abdomen nos ANESTH REPAIR OF HERNIA [facility] Start: 01-10-2024 RPR AA HRN 1ST < 3 CM RDC RPR AA HRN 1ST < 3 CM RDC [facility] Start: 01-10-2024 Patient discharge [facility] Start: 11-29-2023 Behavioral Health Screening Behavioral Health Screening [facility] Start: 11-17-2023 Patient discharge [facility] Start: 11-17-2023 Blood chemistry [facility] Start: 11-16-2023 Laparoscopic appendectomy Laparoscopic, Appendectomy (Not Applicable) [facility] Start: 11-16-2023 Application of intermittent pneumatic compression device [facility] Start: 11-16-2023 Following clinical pathway protocol [facility] Start: 11-16-2023 Anesthesia intraperitoneal lower abd w/laps nos ANESTH SURG LOWER ABDOMEN [facility] Start: 11-16-2023 Laparoscopic appendectomy LAPAROSCOPY APPENDECTOMY [facility] Start: 11-16-2023 Ambulation without limitation [facility] Start: 11-16-2023 Assessment of risk of venous thromboembolism [facility] Start: 11-16-2023 Incentive spirometry [facility] Start: 11-16-2023 Insertion of catheter into peripheral vein [facility] Start: 11-16-2023 Oxygen therapy [facility] Start: 11-16-2023 Preoperative care [facility] Start: 11-16-2023 Providing care according to standard [facility] Start: 11-16-2023 [facility] Start: 11-16-2023 Verification routine [facility] Start: 11-16-2023 Admission procedure [facility] Start: 07-30-2023 Covid-19 Vaccine ( season) Covid-19 Vaccine ( season) [facility] Start: 06-07-2023 Patient referral [facility] Work Phone: Start: 06-01-2023 Patient discharge [facility] Start: 05-31-2023 Provision of activity privileges [facility] Start: 05-31-2023 [facility] Start: 05-30-2023 Following clinical pathway protocol [facility] Start: 05-30-2023 Assessment of risk of venous thromboembolism [facility] Start: 05-30-2023 Continuous positive airway pressure ventilation treatment [facility] Start: 05-30-2023 Elevation of affected extremity [facility] Start: 05-30-2023 Inhalation therapy procedure [facility] Start: 05-30-2023 Insertion of catheter into peripheral vein [facility] Start: 05-30-2023 Introduction of urinary catheter [facility] Start: 05-30-2023 Measuring intake and output [facility] Start: 05-30-2023 Oxygen therapy [facility] Start: 05-30-2023 Providing care according to standard [facility] Start: 05-30-2023 Provision of activity privileges [facility] Start: 05-30-2023 Referral to service [facility] Start: 05-30-2023 End: 05-30-2023 [facility] Start: 05-30-2023 Admission procedure [facility] Start: 05-29-2023 Bacteria identified in Blood by Culture Blood Culture [facility] Start: 05-29-2023 Blood culture [facility] Start: 12-10-2022 Potassium [Moles/volume] in Serum or Plasma POTASSIUM [facility] Start: 11-24-2022 Patient discharge [facility] Work Phone: Start: 11-23-2022 Following clinical pathway protocol [facility] Work Phone: Start: 11-23-2022 Assessment of risk of venous thromboembolism [facility] Work Phone: Start: 11-23-2022 Continuous positive airway pressure ventilation treatment [facility] Work Phone: Start: 11-23-2022 Elevation of affected extremity [facility] Work Phone: Start: 11-23-2022 Inhalation therapy procedure [facility] Work Phone: Start: 11-23-2022 Insertion of catheter into peripheral vein [facility] Work Phone: Start: 11-23-2022 Introduction of urinary catheter [facility] Work Phone: Start: 11-23-2022 Measuring intake and output [facility] Work Phone: Start: 11-23-2022 Oxygen therapy [facility] Work Phone: Start: 11-23-2022 Providing care according to standard [facility] Work Phone: Start: 11-23-2022 Provision of activity privileges [facility] Work Phone: Start: 11-23-2022 End: 11-23-2022 [facility] Work Phone: Start: 11-23-2022 Admission procedure [facility] Work Phone: Start: 11-23-2022 Verification routine [facility] Work Phone: Start: 11-23-2022 Blood chemistry [facility] Work Phone: Start: 11-23-2022 End: 11-23-2022 Blood culture [facility] Work Phone: Start: 11-23-2022 [facility] Work Phone: Start: 07-30-2022 Influenza vaccination INFLUENZA VACCINE (Season Ended) [facility] Start: 04-29-2022 End: 04-29-2022 Patient encounter procedure 04/29/2022 Office Visit Plastic Surgery Trinidad Weems MD [address] [facility] [address] [place] [address] [facility] [place] Start: 02-25-2022 End: 02-25-2022 Patient encounter procedure 02/25/2022 Office Visit Plastic Surgery Trinidad Weems MD [address] [facility] [address] [place] [id number] [facility] Start: 09-10-2021 COVID-19 VACCINE (3 - Booster for Pfizer series) COVID-19 VACCINE (3 - Booster for Pfizer series) [facility] Start: 07-30-2021 Influenza vaccination INFLUENZA VACCINE (#1) [facility] Start: 2020 Lipid panel Lipid Screening [facility] Start: 2004 Third diphtheria, tetanus and acellular pertussis (DTaP) vaccination TDAP (ADULT) [facility] Start: 02-23-2004 Urine microalbumin profile DTaP,Tdap,Td Vaccine (6 - Tdap) [facility] Start: 2003 Hepatitis C screening Hepatitis C Screening [facility] Start: 2003 HIV screening HIV Screening [facility] Start: 2003 Tetanus vaccination TETANUS [facility] Start: 2000 HIV screening HIV SCREENING DISCUSSION [facility] Start: 1985 Hepatitis C antibody, confirmatory test HEPATITIS C VIRUS SCREENING [facility] Anion gap measurement [facility] Work Phone: Anion gap measurement [facility] Bacteria identified in Blood by Culture Blood Culture [facility] Work Phone: Blood chemistry [facility] Blood culture [facility] Work Phone: BUN/Creatinine ratio [facility] Work Phone: BUN/Creatinine ratio [facility] Calcium [Mass/volume ] in Serum or Plasma [facility] Work Phone: Calcium [Mass/volume ] in Serum or Plasma [facility] Carbon dioxide, tota l [Moles/volume] in Serum or Plasma [facility] Work Phone: Carbon dioxide, tota l [Moles/volume] in Serum or Plasma [facility] Chloride [Moles/volu me] in Serum or Plasma [facility] Work Phone: Chloride [Moles/volu me] in Serum or Plasma [facility] Comprehensive metabo lic 2000 panel - Serum or Plasma [facility] Creatinine [Moles/vo lume] in Serum or Plasma [facility] Work Phone: Creatinine [Moles/vo lume] in Serum or Plasma [facility] Glucose [Mass/volume ] in Serum or Plasma [facility] Work Phone: Glucose [Mass/volume ] in Serum or Plasma [facility] Hematocrit [Volume Fraction] of Blood [facility] Hemoglobin [Mass/vol ume] in Blood [facility] Lactic acid measurement [facility] Leukocytes [#/volume ] in Blood [facility] Lipid 1996 panel - S esgun or Plasma [facility] Mean corpuscular hemoglobin concentration determination [facility] Mean corpuscular hemoglobin determination [facility] Measurement of renal function [facility] Work Phone: Measurement of renal function [facility] Neutrophil count [facility] Neutrophil percent differential count [facility] Patient Education ED Cellulitis [facility] Work Phone: Patient referral [facility] Work Phone: Platelets [#/volume] in Blood [facility] Potassium [Moles/vol ume] in Serum or Plasma [facility] Work Phone: Potassium [Moles/vol ume] in Serum or Plasma [facility] Red blood cell count [facility] Red cell distributio n width determination [facility] Sodium [Moles/volume ] in Serum or Plasma [facility] Work Phone: Sodium [Moles/volume ] in Serum or Plasma [facility] Urea nitrogen [Mass/volume] in Serum or Plasma [facility] Work Phone: Urea nitrogen [Mass/volume] in Serum or Plasma [facility] Immunizations Immunization Date Immunization Notes Care Provider [facility] 11-24-2022 influenza, injectabl e, quadrivalent, preservative free Dr. Drew Mayen Work Phone: [facility] 11-24-2022 influenza, seasonal, injectable Dr. Drew Mayen Work Phone: [facility] 11-24-2022 influenza virus vaccine, unspecified formulation Vinnie Hernandez MD Work Phone: [facility] 04-10-2021 COVID-19 vaccine, MR GRIFFITHS, Pfizer, 0.3 ML Trinidad Weems MD Work Phone: [facility] 03-20-2021 COVID-19 vaccine, MR GRIFFITHS, Pfizer, 0.3 ML Trinidad Weems MD Work Phone: [facility] Payers Date Payer Category Payer Self-pay [id number] Unknown [id number] a 2018 Private Health Insurance [id number] 1.315 2018 Unknown [id number] 2018 Unknown [id number] 1985 Unknown [id number] [id number] 1985 Unknown [id number] 2.16840.1.622534.3.579.2.594 1985 Unknown [id number] 2.16840.1.350601.3.579.2.594 1985 Unknown [id number] 2.16840.1.633745.3.579.2.594 1985 Unknown [id number] 2.16840.1.429955.3.579.2.594 1985 Unknown [id number] 2.16840.1.723981.3.579.2.594 1985 Unknown [id number] 2.16840.1.807441.3.579.2.594 1985 Unknown [id number] 2.16840.1.939282.3.579.2.594 1985 Unknown [id number] 2.16840.1.203342.3.579.2.594 1985 Unknown [id number] 2.16.840.1.817654.3.579.2.594 1985 Unknown [id number] 2.16840.1.802725.3.579.2.594 1985 Unknown [id number] 2.16840.1.678681.3.579.2.594 1985 Unknown [id number] 2.16840.1.790091.3.579.2.594 1985 Unknown [id number] 2.840.1.534358.3.579.2.594 1985 Unknown [id number] 2.16840.1.503492.3.579.2.594 1985 Unknown [id number] 2.840.1.022292.3.579.2.594 1985 Unknown [id number] 2.840.1.296008.3.579.2.594 1985 Unknown [id number] 2.840.1.345292.3.579.2.594 1985 Unknown [id number] 2.16840.1.584826.3.579.2.594 Unknown [facility] [id number] 3 Unknown [id number] .[id number] Unknown [id number] .840.1.801500.3.579.2.462 Unknown [id number] .840.1.859007.3.579.2.462 Unknown [id number] 2.840.1.211863.3.579.2.462 Social History Date Type Detail Facility Start: 12-10-2021 End: 01-31-2025 Tobacco smoking status NVIS Never smoked tobacco [facility] Start: 12-10-2021 End: 05-19-2024 Tobacco use and exposure Smokeless tobacco non-user [facility] Start: 02-04-2022 End: 04-29-2022 Alcohol intake Lifetime non-drinker (finding) [facility] Start: 12-10-2021 History SDOH Alcohol Frequency 1 [facility] Start: 1985 Sex Assigned At Not on file O [facility] Start: 02-09-2022 End: 02-19-2022 Exposure to SARS-CoV-2 (event) Unable to assess [facility] Start: 02-15-2022 End: 02-25-2022 Exposure to SARS-CoV-2 (event) Not sure [facility] Start: 11-23-2022 End: 02-16-2024 Tobacco smoking status NHIS Unknown if ever smoked [facility] Start: 1985 Sex Assigned At Male W [facility] Start: 05-19-2024 History of Social function [facility] Start: 05-19-2024 Tobacco use panel [facility] Medical Equipment Procedure Code Equipment Code Equipment Origin al Text Equipment Identifier Dates Appendectomy, laparoscopic Surgical staple loading unit, non-cutting [id number] FDA Start: 11-16-2023 Dressing Wound 5x4in 2 Layer Matrix Bovine Collagen - [id number] Start: 01-23-2022 ([id number]) Extra-gynaecolog ic al surgical mesh, composite-polymer [id number] FDA Start: 01-10-2024 Goals Date Patient Goal [...] dressing supplies and how to obtain them. [facility] provided Riaz and caregiver with wound care education related to the above. Functional Status Date Assessment Result Facility 11-17-2023 Functional status Ambulates [facility] Work Phone: 06-01-2023 Functional status Ambulates [facility] Work Phone: 11-24-2022 Functional status Ambulates [facility] Work Phone: Mental Status Date Assessment Result Facility 01-10-2024 Cognitive function Level Of Consciousness Sedated [facility] Work Phone: 01-10-2024 Cognitive function Voice/Name [facility] Work Phone: 11-17-2023 Cognitive function Voice/Name [facility] Work Phone: 06-01-2023 Cognitive function Voice/Name [facility] Work Phone: Clinical Notes 02-19-2021 to 05-09-2025 Note Date & Type Note Facility 05-09-2025 Evaluation note Diagnosis Onset Date Resolution Dermatitis chronic May 09 2:23pm Hypertension chronic May 09 2:23pm [facility] Work Phone: 1(832) 290-555703-12-2025 Evaluation note* Diagnosis Onset Date Resolution Status Admit Date Allergic urticaria acute February 07, 2025 1:25pm Hypertension chronic February 07, 2025 1:25pm [facility] Work Phone: 1(602) 810-951206-21-2024 NoteHNO ID: [id number] Author: VINNIE HERNANDEZ MD Service: ? Author [...] evaluation of chronic ear eczema. Vinnie Hernandez, [facility]06-21-2024 History of Present illness Narrative* Vinnie [...] eczema. Vinnie Hernandez MD [facility] History and physical note Author Trinidad Nicolas [facility] January 10, 2024 7:37am Note Date/Time January 10, 2024 7:36am [facility] Medical Records Department [address] [place] [address] History & Physical Exam 01/10/24 0736 MR#: [id number] Acct: [id number] Name: RIAZ DIOP Rep #:[id number] : 1985 38 From: Trinidad Mcfadden PCP: Dr. Drew Mayen MD Status:[facility] Location: [place] [address] History and Physical Date of Admission: 01/10/24 Date of Service: 12/06/23 MR#: [id number] Acct: [id number] Name: RIAZ DIOP Rep #: [id number] : 1985 Provider: Dr. Trinidad Nicolas MD Age/Sex: 38/M Location: [facility] Status: Signed Intake Vital Signs 11/16/2315:26 12/06/2414:01 [...] the first time with Dr. Prado of [facility]. He confirms that although he was tested [...] visit as well as a consultation visit [facility] Medical History Asthma Congenital absence of left [...] Mayen MD; Dr. Trinidad Nicolas MD~ Signed [facility] Work Phone: 1(426) 960-481212-20-2023 Progress note Author Joann Cheng [facility] November 17, 2023 9:23am Note Date/Time November 17, 2023 9:09am [facility] Medical Records Department [address] [place] [address] Progress Note - Surgery 11/17/2333 MR#: [id number] Acct: [id number] Name: RIAZ DIOP Rep #:[id number] : 1985 38 From: Joann SORIANO PA-C PCP: Dr. Drew Mayen MD Status:A DM DEISY Location: [place] [address] Subjective Subjective Patient evaluated resting comfortably in [...] 85.6 H, Lymph % (Auto) 9.2 L, [place] % (Auto) 4.5, Eos % (Auto) 0.1, [...] Clarity Clear, Urine pH 6.5, Ur Specific [place] 1.010, Urine Protein Negative, Urine Glucose (UA) [...] (Auto) 76.6 H, Lymph % (Auto) 15.2 L,[place] % (Auto) 7.1, Eos % (Auto) 0.5, [...] discharge today Charges/Coding Visit Charges Inpatient E&M: 68857 Subs Hosp L1 (no charge; post-op) 11/17/23 0923 <Electronically signed by Joann SORIANO PA-C> Cosigner Signature (if applicable): CC: ~ Signed [facility] Work Phone: 1(204) 752-998312-19-2023 Procedure [facility] 11-16-2023 Discharge summary Author Antonio Ferguson [facility] November 16, 2023 4:15pm Note Date/Time November 16, 2023 9:42am [facility] Medical Records Department [address] [place] [address] Emergency Department Summary 11/16/23 MR#: [id number] Acct: [id number] Name: RIAZ DIOP Rep #:[id number] : 1985 38 From: Antonio Sanchez PCP: Dr. Drew Mayen MD Status:A DM DEISY Location: [place] [id number] HPI HPI - GI History of Present [...] Patient denies any dysuria, frequency, or hematuria. [facility] Medical History Asthma Congenital absence [...] 85.6 H Lymph % (Auto) 9.2 L [place] % (Auto) 4.5 Eos % (Auto) 0.1 [...] Clarity Clear Urine pH 6.5 Ur Specific [place] 1.010 Urine Protein Negative Urine Glucose (UA) [...] sinus rhythm with a rate of 91. SC interval, QRS interval, and QTc intervals were all normal. [place] was normal. There are no acute ST [...] Disposition Disposition: [facility] What to do if you have Problems For any increased pain, shortness of breath, bleeding, nausea or vomiting, chestpain, or any unexpected problems, contact your Primary Care Provider. Call [facility] ([phone]) or report to the closest Emergency Room. Call 911 if necessary. 11/16/23 1566 <Electronically signed by Antonio Ferguson DO> Cosigner Signature (if applicable): CC: Dr. Drew Mayen MD ~ Signed [facility] Work Phone: 1(993) 318-784412-19-2023 History and physical note Author Trinidad Nicolas [facility] November 16, 2023 3:58pm Note Date/Time November 16, 2023 1:18pm [facility] Medical Records Department [address] [place] [address] History & Physical Exam 11/16/23 1316 MR#: [id number] Acct: [id number] Name: RIAZ DIOP Rep #:[id number] : 1985 38 From: Joann SORIANO PA-C PCP: Dr. Drew Mayen MD Status:A DM DEISY Location: [place] [address] HPI - General General Date of Admission: 11/16/23 Date of Service: 11/16/23 Chief Complaint: Abdominal pain HPI Narrative RIAZ DIOP, is a 38 M who presents with 1 day history of abdominal pain which started at 0300 AM. He noted the pain started in his epigastric region. Hethought this was gas and waited until 0600 AM when [employer] opened and purchased some gas-x. He noted [...] and laparoscopic cholecystectomy earlier this year at [facility] and more recently an excision of a [...] venous hypertension. WBC 13.3 with left shift. [facility] Medical History Asthma Congenital absence of left [...] 85.6 H, Lymph % (Auto) 9.2 L, [place] % (Auto) 4.5, Eos % (Auto) 0.1, [...] Clarity Clear, Urine pH 6.5, Ur Specific [place] 1.010, Urine Protein Negative, Urine Glucose (UA) [...] patient's care. Charges/Coding Visit Charges OBSV E&M: 56858 Observ/hosp same date L2 11/16/23 1348 <Electronically signed by Joann SORIANO PA-C> Cosigner Signature (if applicable): CC: XIOMY Cheng; Dr. Drew Mayen MD; Dr. Trinidad Nicolas MD~ Signed ADDENDUM by Dr. Trinidad Nicolas MD on 11/16/23 at 1558 Addendum Patient seen and examined alongside Mrs. Cheng. All agree with her documentation provided in the history and physical above. In short patient is [id number] male presenting with signs and symptoms of [...] MD; Dr. Trinidad Nicolas MD ~* Signed [facility] Work Phone: 1(320) 754-386107-03-2023 Progress note Author Miriam Johnson [facility] May 31, 2023 6:12pm Note Date/Time May 31, 2023 6:12p m [facility] Medical Records Department [address] [place] [address] Progress Note - Hospitalist 05/31/23 1802 MR#: [id number] Acct: [id number] Name: RIAZ DIOP Rep #:[id number] : 1985 37 From: Miriam Johnson DO PCP: Dr. Drew Mayen MD Status:A DM IN Location: [facility] [id number] Reason for Visit Reason for Visit: [...] (Auto) 81.6 H, Lymph % (Auto) 12.0 L,[place] % (Auto) 6.0, Eos % (Auto) 0.0, [...] -Full code Charges/Coding Visit Charges Inpatient E&M: 48270 Subs Hosp L2 05/31/231811 <Electronically signed by Miriam Johnson DO> Cosigner Signature (if applicable): CC: ~ Signed [facility] Work Phone: 1(646) 966-842307-03-2023 Consult note Author Sabina Flowers [facility] May 31, 2023 5:17am Note Date/Time May 31, 2023 5:17a m [facility] Medical Records Department [address] [place] [address] Pharmacokinetic/Renal -Consult 05/31/23 0517 MR#: [id number] Acct: [id number] Name: RIAZ DIOP Rep #:[id number] : 1985 37 From: Sabina Flowers PCP: Dr. Drew Mayen MD Status:A DM IN Y Location: [place] [address] Consult [facility] has been consulted [...] Signature (if applicable): Date CC: ~ Signed [facility] Work Phone: 1(460) 297-250407-02-2023 Progress note Author Gatito Chase [facility] May 30, 2023 6:49pm Note Date/Time May 30, 2023 6:49p bart [facility] Medical Records Department [address] [place] [address] Progress Note - Hospitalist 05/30/23 1845 MR#: [id number] Acct: [id number] Name: RIAZ DIOP Rep #:[id number] : 1985 37 From: Gatito Chase DO PCP: Dr. Drew Mayen MD Status:A DM IN Location: [place] [id number] Reason for Visit Reason for Visit: [...] 92.0 H, Lymph % (Auto) 2.5 L, [place] % (Auto) 4.6, Eos % (Auto) 0.0, [...] % (Auto) Cancelled, Lymph % (Auto) Cancelled, [place] % (Auto) Cancelled, Eos % (Auto) Cancelled, [...] Tear DropCells Cancelled, Ovalocytes Cancelled, Stomatocytes Cancelled, Marshall-Reeves Bodies Cancelled, [place] Cells Cancelled, Bite Cells Cancelled, Crenated Cell [...] 91.1 H, Lymph % (Auto) 4.4 L, Patillas % (Auto) 3.6, Eos % (Auto) 0.0, [...] collaborating with patient's care team: 35 minutes 05/30/237 <Electronically signed by Gatito Chase DO> Cosigner Signature (if applicable): CC: ~ Signed [facility] Work Phone: 1(920) 525-583907-02-2023 Discharge summary Author Antonio Ferguson [facility] May 30, 2023 8:51am Note Date/Time May 29, 2023 11:15 pm [facility] Medical Records Department [address] [place] [address] Emergency Department Summary 05/29/23 MR#: [id number] Acct: [id number] Name: RIAZ DIOP Rep #:[id number] : 1985 37 From: Antonio Sanchez PCP: Dr. Drew Mayen MD Status:A DM IN Location: [address] History of Present Illness Chief Complaint: [...] leg. Patient denies any paresthesias or weakness. [facility] Medical History (Updated 05/30/23 @ 02:35 by [...] Cancelled Lymph % (Auto) 2.5 L Cancelled Patillas % (Auto) 4.6 Cancelled Eos % (Auto) [...] Drop Cells Cancelled Ovalocytes Cancelled Stomatocytes Cancelled Marshall-Reeves Bodies Cancelled Danny Cells Cancelled Bite Cells [...] Leukocytosis Disposition Disposition: [facility] What to do if you have Problems For any increased pain, shortness of breath, bleeding, nausea or vomiting, chestpain, or any unexpected problems, contact your Primary Care Provider. Call [facility] ([phone]) or report to the closest Emergency Room. Call 911 if necessary. 05/30/23 0851 <Electronically signed by Antonio Ferguson DO> Cosigner Signature (if applicable): CC: Dr. Drew Mayen MD ~ Signed [facility] Work Phone: 1(853) 882-833807-02-2023 Consult note Author [facility] May 30, 2023 5:28am Note Date/Time May 30, 2023 5:28a [facility] Medical Records Department [address] [place] [address] Pharmacokinetic/Renal -Consult 05/30/23 0527 MR#: [id number] Acct: [id number] Name: RIAZ DIOP Rep #:[id number] : 1985 37 From: Sabina Flowers PCP: Dr. Drew Mayen MD Status:A DM IN Y Location: [place] [id number] Consult Antibiotic Management Pharmacy has been [...] by Sabina Flowers > Date _ Sabina Flowesr Cosigner Signature (if applicable): Date CC: ~ Signed [facility] Work Phone: 1(227) 637-681907-02-2023 History and physical note Author Suzi Castaneda [facility] May 30, 2023 4:40am Note Date/Time May 30, 2023 2:58a [facility] Medical Records Department [address] [place] [address] H&P Exam - Hospitalist 05/30/23 0255 MR#: [id number] Acct: [id number] Name: RIAZ DIOP Rep #:[id number] : 1985 37 From: Suzi Castaneda MD PCP: Dr. Drew Mayen MD Status:A DM IN Location: [place] [address] HPI - General General Date of Admission: 05/30/23 Date of Service: 05/30/23 Chief Complaint: RLE pain, redness, fever. 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 [facility] Medical History Asthma Congenital absence of left [...] 92.0 H, Lymph % (Auto) 2.5 L, Patillas % (Auto) 4.6, Eos % (Auto) 0.0, [...] % (Auto) Cancelled, Lymph % (Auto) Cancelled, Pat[place] % (Auto) Cancelled, Eos % (Auto) Cancelled, [...] Drop Cells Cancelled, Ovalocytes Cancelled, Stomatocytes Cancelled, Marshall-Reeves Bodies Cancelled, [place] Cells Cancelled, Bite Cells Cancelled, Crenated Cell [...] rhinitis, DORENE, HTN who presents to the [facility] ED on 05/30/2023 with history of onset [...] 60 minutes. Charges/Coding Visit Charges Inpatient E&M: 60456 Init Hosp L2 05/30/23 0440 <Electronically signed by Suzi Castaneda MD> Cosigner Signature (if applicable): CC: Dr. Suzi Castaneda MD; Dr. Drew Mayen MD~ Signed [facility] Work Phone: 1(785) 136-987612-27-2022 Hospital Discharge instructions Additional Instructions Contact your family physician if your right leg has increased redness or swelling You will need follow-up concerning your iron deficiency anemia Date of Discharge: 11/24/22[facility] Work Phone: 1(121) 644-530906-01-2022 History of Present illness Narrative* Shirley Lara [...] concerns A total of 10 minutes of scki-yq-mzgj time were spent with the patient, of which >50% were spenton counseling and coordination of care. [facility] History of Present illness Narrative* Shirley Lara [...] up in 4-6 weeks [facility] of Present illness Narrative* Shirley Lara LPN - 02/04/2022 11:45 AM EST Plastic Surgery Post-op Riaz Diop ([id number]) 36 y.o. male presenting for a post-op [...] and walking boot [facility]04-05-2021 [facility]03-24-2021 Note DATE OF SERVICE: 02/19/2021 INDICATION: [...] up clinically. Referral for surgical consultation for [facility] PATIENT NAME: RIAZ DIOP [address] [facility] [address] [place] MEDICAL REC #: [id number] [place] [address] ADMIT DATE: DISCHARGE DATE: GASTROENTEROLOGY REPORT ATTENDING PHY: Jacinto Macias MD cholecystectomy discussed with the patient and the . Jacinto Macias MD /[id number] SSI File#: [id number] END OF DOCUMENT / CHANGE LOG FOLLOWS Last Edited By Elec. Signed By Jacinto Macias MD #Jacinto Traore MD #PATRICIOA on 06/29/2021 11:37 ET on 06/29/2021 11:37 ET Revision Number - 2 Verified/Reviewed by 06/29/21 1137 DUSTY [facility] PATIENT NAME: RIAZ DIOP [address] [place] MEDICAL REC #: [id number] [place] [address] ADMIT DATE: DISCHARGE DATE: GASTROENTEROLOGY REPORT ATTENDING PHY: Jacinto Macias [facility] Author Miriam Johnson [facility] June 01, 2023 12:31pm Note Date/Time June 01, 2023 12:21 pm [facility] Medical Records Department [address] [place] [address] Discharge Summary 06/01/23 1219 MR#: [id number] Acct: [id number] Name: RIAZ DIOP Rep #:[id number] : 1985 37 From: Miriam Johnson DO PCP: Dr. Drew Mayen MD Status:A DM IN Location: [place] [address] Providers Date of Admission: 05/30/23 Date of [...] % (Auto) 66.4, Lymph % (Auto) 23.8, Patillas % (Auto) 7.3, Eos % (Auto) 1.6, [...] Self Care Charges/Coding Visit Charges Inpatient E&M: 00629 Disch Hosp >30min 06/01/23 1231 <Electronically signed by Miriam Johnson DO> Cosigner Signature (if applicable): CC: Dr. Drew Mayen MD; Dr. Miriam Johnson DO~ Signed [facility] Work Phone: Discharge summary Author Joann Cheng [facility] November 17, 2023 9:34am Note Date/Time November 17, 2023 9:32am [facility] Medical Records Department [address] [place] [address] Instructions for Home/Discharge Instructions 11/17/23 0929 MR#: [id number] Acct: [id number] Name: RIAZ DIOP Rep #:[id number] : 1985 38 From: Joann SORIANO PA-C [...] appointment for a 2 week follow-up at [phone] Test Results: Test results from this visit [...] similar medications, I would recommend transitioning tothese yfah-bgm-zojeiec medicines as soon as possible instead of continued use ofnarcotic pain medication. Follow up ? You should call [facility] soon after surgery, at [phone] option 1 to make a follow up [...] can be placed): Home, Self Care 11/17/23 0915<Electronically signed by Joann SORIANO PA-C>Joann SORIANO PA-C CC: Dr. Drew Mayen MD ~ Signed [facility] Work Phone: Evaluation note* Diagnosis Malignant melanoma, unspecified site- Primary [facility] Diagnosis S/P split thickness skin graft- Primary Encounter for follow-up Malignant melanoma of right lower extremity including hip Malignant melanoma of skin of lower limb, including hip documented [facility] Diagnosis Malignant melanoma of right lower extremity including hip- Primary Malignant melanoma of skin of lower limb, including hip documented [facility] Diagnosis Onset Date Resolution Status Anemia acute Cellulitis of leg, right acu te [facility] Work Phone: Evaluation note* Diagnosis Onset Date Resolution Status Discoloration of skin acute Hypertension chronic Venous insufficiency of both lower extremities chronic Anemia acute Hypertension chronic Venous insufficiency of both lower extremities chronic [facility] Work Phone: Evaluation note* Diagnosis Onset Date Resolution Status Discoloration of skin acute Hypertension chronic Venous insufficiency of both lower extremities chronic Anemia acute Hypertension chronic Venous insufficiency of both lower extremities chronic Cellulitis acute Cellulitis of leg, right acu te Leukocytosis acute Sepsis acute [facility] Work Phone: Evaluation note* Diagnosis Onset Date Resolution Status Anemia acute Hypertension chronic Venous insufficiency of both lower extremities chronic Cellulitis of leg, right acu te Leukocytosis resolved Sepsis resolved Cellulitis of leg, right acu te Hypertension chronic Venous insufficiency of both lower extremities chronic Hypertension chronic Venous insufficiency of both lower extremities chronic Discoloration of skin acute Lower extremity edema acute [facility] Work Phone: Evaluation note* Diagnosis Onset Date Resolution Status Hypertension chronic Venous insufficiency of both lower extremities chronic Discoloration of skin acute Lower extremity edema acute Diarrhea acute DORENE (obstructive sleep apnea) acute Anemia chronic Hypertension [facility] Work Phone: Evaluation note* Diagnosis Onset Date Resolution Status Diarrhea acute DORENE (obstructive sleep apnea) acute Anemia chronic Hypertension chronic Abdominal pain acute Acute appendicitis acute [facility] Work Phone: Evaluation note* Diagnosis Onset Date Resolution Status Diarrhea acute DORENE (obstructive sleep apnea) acute Anemia chronic Hypertension chronic Abdominal pain resolved Acute appendicitis resolved Status post laparoscopic appendectomy acute Umbilical hernia without obs truction and without gangrene [facility] Work Phone: Evaluation note* Diagnosis Onset Date Resolution Status Diarrhea acute Anemia chronic Hypertension chronic DORENE (obstructive sleep apnea) chronic Abdominal pain resolved Acute appendicitis resolved Status post laparoscopic appendectomy acute Umbilical hernia without obs truction and without gangrene chronic Hypertension chronic DORENE (obstructive sleep apnea) chronic Umbilical hernia without obs truction and without gangrene chronic Venous insufficiency of both lower extremities [facility] Work Phone: Evaluation note* Diagnosis Onset [...] repair, follow-up exam acute Abdominal pain resolved [facility] Work Phone: Evaluation note* Diagnosis Acute otitis media, right- Primary Unspecified otitis media documented in this encounter [facility] Author Joann Cheng [facility] November 16, 2023 1:48pm Note Date/Time November 16, 2023 1:18pm [facility] Medical Records Department [address] [place] [address] History & Physical Exam 11/16/23 1316 MR#: [id number] Acct: [id number] Name: RIAZ DIOP Rep #:[id number] : 1985 38 From: Joann SORIANO PASukhiC PCP: Dr. Drew Mayen MD Status:A DM DEISY Location: [facility] [id number] HPI - General General Date of Admission: 11/16/23 Date of Service: 11/16/23 Chief Complaint: Abdominal pain HPI Narrative RIAZ DIOP, is a 38 M who presents with 1 day history of abdominal pain which started at 0300 AM. He noted the pain started in his epigastric region. Hethought this was gas and waited until 0600 AM when [employer] opened and purchased some gas-x. He noted [...] and laparoscopic cholecystectomy earlier this year at [facility] and more recently an excision of a [...] venous hypertension. WBC 13.3 with left shift. [facility] Medical History Asthma Congenital absence of left [...] 85.6 H, Lymph % (Auto) 9.2 L, Pat[place] % (Auto) 4.5, Eos % (Auto) 0.1, [...] Clarity Clear, Urine pH 6.5, Ur Specific Widener 1.010, Urine Protein Negative, Urine Glucose (UA) [...] MD at 12:14 EST , ADDENDUM: 11/16/23 0382 IMPRESSION: 1. Thickening of the appendix with [...] patient's care. Charges/Coding Visit Charges OBSV E&M: 38864 Observ/hosp same date L2 11/16/23 1348 <Electronically signed by Joann SORIANO PA-C> Cosigner Signature (if applicable): CC: XIOMY Cheng; Dr. Drew Mayen MD~ Signed [facility] Work Phone: Reason for referral (narrative)No reason for referral [facility] Work Phone: Summary Purpose Family History No Family History Records Found Relationship Condition Age at Onset Recorded Date/T bladimir mother Asthma Unknown Malignant neoplasm Unknown Advance Directives No Advanced Directives Records Found Advance Directive Response Recorded Date/ Time Living Will No November 23 9:01pm Power of Pediatric Dental Assistant No November 23, 2022 9:01pm Advance Directive Response Recorded Date/ Time Living Will No November 23, 2 022 10:56pm Power of Pediatric Dental Assistant No November 23, 2022 10:56pm Advance Directive Response Recorded Date/ Time Living Will No May 29, 2023 1 1:15pm Power of Pediatric Dental Assistant No May 29, 2023 11:15pm Advance Directive Response Recorded Date/ Time Living Will No May 30, 2023 4 :35am Power of Pediatric Dental Assistant No May 30, 2023 4:35am Advance Directive Response Recorded Date/ Time Living Will No May 30, 2023 3 :35am Power of Pediatric Dental Assistant No May 30, 2023 3:35am Advance Directive Response Recorded Date/ Time Living Will No November 16, 2 023 12:05pm Power of Pediatric Dental Assistant No November 16, 2023 12:05pm Advance Directive Response Recorded Date/ Time Living Will No November 16, 2 023 1:57pm Power of Pediatric Dental Assistant No November 16, 2023 1:57pm Advance Directive Response Recorded Date/ Time Living Will No December 30 1:23pm Power of Pediatric Dental Assistant No December 30, 2023 1:23pm Advance Directive Response Recorded Date/ Time Living Will No December 30 2:23pm Power of Pediatric Dental Assistant No December 30, 2023 2:23pm Advance Directive Response Recorded Date/ Time Living Will No January 31, 2025 5:00pm Do you have a [facility] Power of Pediatric Dental Assistant? No January 31, 2025 5:00pm Chief Complaint [...] FU SEPSIS, CELLULITIS SEPSIS, CELLULITIS SEPSIS, CELLULITIS [facility] FOLLOW UP - CELLULITIS 1 M FU [...] Robotic Umb/Ventral Hernia Reason for Visit Diarrhea DORENE (obstructive sleep [...] section and content) DATE CREATED AUTHOR 02/17/2021 [facility] DATE CREATED AUTHOR AUTHOR'S ORGANIZ ATION 06/29/2021 [facility] DATE CREATED AUTHOR AUTHOR'S ORGANIZ ATION 05/02/2022 [facility] DATE CREATED AUTHOR AUTHOR'S ORGANIZ ATION 05/20/2024 [facility] DATE CREATED AUTHOR AUTHOR'S ORGANIZ ATION 07/12/[address] [facility] Reason for Visit (unrecogniz ed section and content) Reason Comments Wound Check Reason Comments Post Op Visit Reason Comments Ear Problem Bilat ear problem, s tates they are feeling clogged, loss of hearing, scratching ears couple months increasing x couple days into discomfort Care Teams (unrecognized sec tion and content) Medical Coding Instructor Relationship Specialty Start Date End Date Drew Mayen MD [address] [facility] [address] [place] [address] PCP - General Internal Medicine 11/26/21 Riaz Jackson MB/HAYDER [address] [place] [phone] Referring Provider Hematology 11/26/21 Wendy Das, round corner cutter operator 12/30/21 Trinidad Weems MD [address] [facility] [address] [place] [address] Surgeon Plastic Surgery 01/02/22 Medical Coding Instructor Relationship Specialty Start Date End Date Drew Mayen MD [address] [facility] [place] [address] [place] [phone] PCP - General Internal Medicine 11/26/21 Riaz Jackson MB/CHB [address] [place] [address] Referring Provider Hematology 11/26/21 Wendy Das, round corner cutter operator 12/30/21 Trinidad Weems MD [address] [place] [address] [place] [phone] Surgeon Plastic Surgery 01/02/22 Medical Coding Instructor Relationship Specialty Start Date End Date Drew Mayen MD [address] [facility] [address] [place] [phone] PCP - General Internal Medicine 11/26/21 Riaz Jackson MB/CHB [address] [place] [phone] Referring Provider Hematology 11/26/21 Trinidad Weems MD [address] [place] [address] [place] [phone] Surgeon Plastic Surgery 01/02/22 Team Status: Active [...] Joe Attending Provider, Referring Prov ider Active Medical Coding Instructor Relationship Specialty Start Date End Date Drew Mayen MD [address] [facility] [address] [place] [phone] PCP - General Internal Medicine 05/19/24 Team [...] or prosecute any alcohol or drug abuse patient.[facility] FOR RECORDS PERTAINING TO PATIENTS WHO ARE [...] BE BASED ON THE PRIMARY CLINICAL RECORDS. [facility]. provides no warranty or guarantee of the accuracy or completeness of information in this document.
[2025-10-10] VITALS (15 sets, daily range): BP systolic 114–153; BP diastolic 53–82; PULSE 89–134; RESP 16–18; TEMP 36.6–38.5; O2SAT 94–100; BMI 39.6
--- NOTE | 2025-10-10 00:06 | CPS ---
pt did not want hospital cpap machine-does not wear his at home
[2025-10-10] MEDS: 0.9% Normal Saline (1000mL) 1,000 ML 999 ML IV ×2 (00:16→04:21)
--- NOTE | 2025-10-10 00:17 | PCM.RX.CS ---
Consult Antibiotic Management Pharmacy has been consulted to manage selected antibiotic: Vancomycin Type of Intervention Type of Consult: New start Suspected Infection Suspected Infection: Skin/Soft tissue Prior Doses of Antibiotics Prior Doses of Antibiotics Received/Current Regimen: received vanc 2000mg IV x1 in E.R. starting at 21:05 Labs Labs: Sodium 139 mmol/L (133-145) 10/09/25 19:18 Potassium 3.7 mmol/L (3.3-5.1) 10/09/25 19:18 Chloride 103 mmol/L (98-108) 10/09/25 19:18 Carbon Dioxide 20.8 mmol/L (21.0-32.0) L 10/09/25 19:18 Anion Gap 15 (5-15) 10/09/25 19:18 BUN 13 mg/dL (4-19) 10/09/25 19:18 Creatinine 1.08 mg/dL (0.70-1.20) 10/09/25 19:18 Est GFR (MDRD) Non-Af 90 (>60) 10/09/25 19:18 BUN/Creatinine Ratio 11.9 RATIO (10-20) 10/09/25 19:18 Glucose 121 mg/dL (70-99) H 10/09/25 19:18 Microbiology Microbiology: Microbiology 10/09/25 19:54 Mucosa - Nose SARS-CoV-2, Influenza & RSV (PCR) - Final Dosing Weight Weight used for dosin kg Estimated Creatinine Clearance Estimated Creatinine Clearance: 145 ml/min Goal Trough Goal Trough: 15-20 mcg/mL Pharmacy Plan for Drug Dosing Pharmacy Plan for Drug Dosing: Starting 8 hours after the E.R. dose, continue with vanc 1500mg IV q8h per [facility] dosing protocol based on the patient's weight and CrCl. Check a trough before the 4th overall dose. Pharmacy Service will continue to monitor and adjust dosing as required. Follow-Up Labs Follow-Up Labs: Trough: Vancomycin Date/Time Labs Ordered Labs to be done on [date and time ordered]: 10/10/25 20:30
[2025-10-10] MEDS: 0.9% Normal Saline (1000mL) 1,000 ML 100 ML IV (01:24)
[2025-10-10] MEDS: Vancomycin HCl 1,500 MG in 0.9% Normal Saline (500mL Bag) 500 ML 250 MG IV ×2 (04:09→12:38)
[2025-10-10] MEDS: Ketorolac 30 MG/ML Syringe IV ×2 (04:17→20:46)
[2025-10-10] MEDS: 0.9% Saline Lock 10 ML Syringe IV ×6 (04:21→23:39)
[2025-10-10] MEDS: Piperacil/Tazobactam 3.375 GM in 0.9% Normal Saline (50mL MB+) 50 ML IV ×3 (06:34→22:31)
[2025-10-10 07:28] LABS: Hematocrit 36.6 % (40-54); Hemoglobin 12.5 g/dL (13.0-16.5); Immature Granulocytes Count 0.090 X10^3/uL (0.0-0.0); Mean Corp Hgb Conc 34.2 g/dL (32-36); Mean Corpuscular Volume 92.2 fL (80-94); Mean Platelet Vol. 10.1 fl (6.2-12.0); NRBC Flagged by Analyzer 0 % (0-5); Platelet Count 266 K/mm3 (150-450); RBC Distribution Width CV 12.8 % (11.6-14.6); RBC Distribution Width SD 43.1 fl (35.1-43.9); Red Blood Count 3.97 M/mm3 (4.6-6.2); White Blood Count 15.5 K/mm3 (4.4-11.0)
[2025-10-10 07:53] LABS: AST(SGOT) 19 U/L (<=37); Alanine Aminotransfer ALT/SGPT 31 U/L (<=46); Albumin, Serum 3.5 g/dL (3.5-5.0); Alkaline Phosphatase 52 U/L (40-129); Anion Gap 9 (5-15); BUN 14 mg/dL (4-19); BUN/Creat Ratio 11.0 RATIO (10-20); Calcium,Total 7.8 mg/dL (7.6-11.0); Carbon Dioxide 22.3 mmol/L (21.0-32.0); Chloride 108 mmol/L (98-108); Estimated Creatinine Clearance 125.89 ml/min (50-250); Globulin 2.2 g/dL (2.2-4.2); Glucose 127 mg/dL (70-99); Potassium 4.1 mmol/L (3.3-5.1)
--- NOTE | 2025-10-10 10:03 | CASEMGMT ---
Dx:RLE cellulitis LACE:2 6-Clicks:24 Medical record reviewed and patient evaluated for identification of discharge planning needs. Based on this review, at this time criteria are not present to indicate a need for discharge planning. Will remain available to assist with discharge planning needs as identified or requested.
--- NOTE | 2025-10-10 10:27 | PN.HOSP_ITS ---
Reason for Visit Chief Complaint: F/C, N,V, RLE redness. Objective Data Objective Data Vital Signs: Vital Signs Temp Pulse Resp BP Pulse Ox O2 Del Method 99.7 F H 110 H 16 126/61 H 96 Room Air 10/10/25 09:14 10/10/25 09:14 10/10/25 09:14 10/10/25 09:14 10/10/25 09:14 10/10/25 09:14 Oxygen Delivery Method Room Air Weight: 326 lb 4.546 oz Body Mass Index (BMI) 39.6 Intake & Output: Intake and Output for Last 24 Hours 10/08/25 10/09/25 10/10/25 23:59 23:59 23:59 Intake Total 1590 / 1590 2530 / 2530 Balance 1590 / 1590 2530 / 2530 Lab / Micro Data 10/10/25 07:00 10/10/25 07:00 Labs: Laboratory Results - last 24 hr 10/09/25 19:18: WBC 17.9 H, RBC 4.74, Hgb 15.0, Hct 41.4, MCV 87.3, MCH 31.6, M CHC 36.2 H, RDW Std Deviation 39.6, RDW Coeff of Geoff 12.4, Plt Count 384, MPV 10.1, Immature Gran % (Auto) 0.700, Neut % (Auto) 91.6 H, Lymph % (Auto) 3.7 L, [place] % (Auto) 3.4, Eos % (Auto) 0.4, Baso % (Auto) 0.2, Absolute Neuts (auto) 16.4 H, Absolute Lymphs (auto) 0.66 L, Nucleated RBC % 0, PT 15.0 H, INR 1.2, A PTT 23.5 L, Sodium 139, Potassium 3.7, Chloride 103, Carbon Dioxide 20.8 L, Anion Gap 15, BUN 13, Creatinine 1.08, Estim Creat Clear Calc 145.15, Est GFR (MDRD) Non-Af 90, BUN/Creatinine Ratio 11.9, Glucose 121 H, Lactic Acid 2.8 H*, Calcium 9.8, Total Bilirubin 0.94, AST 31, ALT 43, Alkaline Phosphatase 81, Total Protein 7.2, Albumin 4.6, Globulin 2.6, Albumin/Globulin Ratio 1.8 10/09/25 20:49: Urine Color Yellow, Urine Clarity Sl. Cloudy, Urine pH 7.0, Ur Specific [place] 1.005, Urine Protein 30 H, Urine Glucose (UA) Normal, Urine Ketones Negative, Urine Occult Blood Negative, Urine Nitrite Negative, Urine Bilirubin Negative, Urine Urobilinogen 1 H, Ur Leukocyte Esterase Negative, Urine RBC 0 SEEN, Urine WBC 0-5 SEEN, Ur Squamous Epith Cells 0 SEEN, Urine Bacteria 1+, Urine Mucus 0 SEEN 10/09/25 23:26: Lactic Acid 1.6 10/10/25 07:00: WBC 15.5 H, RBC 3.97 L, Hgb 12.5 L, Hct 36.6 L, MCV 92.2 D, MCH 31.5, MCHC 34.2 D, RDW Std Deviation 43.1, RDW Coeff of Geoff 12.8, Plt Count 266, MPV 10.1, Immature Gran % (Auto) 0.600, Neut % (Auto) 88.2 H, Lymph % (Auto) 6.0 L, [place] % (Auto) 4.9, Eos % (Auto) 0.0, Baso % (Auto) 0.3, Absolute Neuts (auto) 13.7 H, Absolute Lymphs (auto) 0.93, Nucleated RBC % 0, Sodium 139, Potassium 4.1, Chloride 108, Carbon Dioxide 22.3, Anion Gap 9, BUN 14, C reatinine 1.24 H, Estim Creat Clear Calc 125.89, Est GFR (MDRD) Non-Af 76, BUN/Creatinine Ratio 11.0, Glucose 127 H, Calcium 7.8, Total Bilirubin 1.10, AST 19, ALT 31, Alkaline Phosphatase 52, Total Protein 5.7 L, Albumin 3.5, Globulin 2.2, Albumin/Globulin Ratio 1.6 Micro: Microbiology 10/10/25 00:20 Nasal Secretion MRSA (PCR) - Final 10/09/25 19:54 Mucosa - Nose SARS-CoV-2, Influenza & RSV (PCR) - Final Radiography Diagnostic Testing: Radiology Impression Abdomen/Pelvis CT 10/09/25 19:19 IMPRESSION: 1. Mildly prominent left iliac and inguinal lymph nodes with adjacent stranding, suggesting acute lymphadenitis. 2. No signs of bowel inflammation, perforation or obstruction. 3. 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 Reading Location: [facility] Venous Duplex 10/09/25 19:23 IMPRESSION: No acute occlusive deep vein thrombosis. Reading Location: [facility] Chest X-Ray 10/09/25 20:22 IMPRESSION: No focal consolidations. 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 He also had sentinel lymph node exam which turned out to be negative still he had right inguinal lymph peridectomy. Since then he gets recurrent cellulitis and this time it is the fourth episode. His right leg is also mildly swollen than left probably from the right lymphadenectomy and lymphedema. No history of diabetes Physical exam General: Alert, Oriented x3, Cooperative. Obesity grade 2 BMI 39.7 kg/m² HEENT: Atraumatic, PERRLA, EOMI, Normocephalic. Oral: No Gingival or Mucosal Lesions/ Ulcerations Neck: Supple, No JVD, Negative Carotid Bruits Chest wall/Lungs: Air entry diminished in bilateral lung bases. No crepitation/rhonchi Cardiovascular: Regular rate and rhythm, Normal S1,S2, No M/G/R Abdomen: Bowel Sounds Present, Soft, Non Tender, Non-Distended : No dysuria. No renal angle tenderness. No suprapubic tenderness. Extremities: No edema, Capillary Refill Less than 3 Seconds Skin: Peeling of his skin of interdigital space of right 4th and 5th toe. Eschar at the right plantar aspect from excision of melanoma nevus Musculoskeletal: Right inguinal lymph node swollen enlarged but not tender. Right leg erythematous, slightly tender but no induration. Neurological: Cranial nerves II-XII grossly intact, DTR 2+/4. No acute focal neurological deficit. Psych/Mental Status: Normal Affect, Appropriate. Assessment & Plan Assessment/Plan (1) Cellulitis of leg, right: PLAN: Plan The patient is a 40 y/o M w/ PMHx: 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 Jackson, admitted with right lower extremity redness, fever and vomiting at home. He has history of cellulitis in the past #1. Acute Right Lower Extremity Cellulitis with notable tachycardia, fever, leukocytosis, mild lactic acidosis but no endorgan damage: Patient is being admitted on Med[facility] floor. Was aggressively rehydrated with IV fluid and started on vancomycin and Zosyn. MRSA PCR negative. Vancomycin discontinued. Zosyn changed to Unasyn as antibiotic stewardship protocol #2. Possible acute on chronic right sided inguinal lymphadenopathy after right inguinal lymph node with surgery during excision of right foot melanoma nevus:: CT abdomen and pelvis with noted prominent left iliac and inguinal lymph nodes with adjacent stranding, suggestive of acute lymphadenitis. On exam there is no inguinal lymph node tenderness although it is enlarged and 2 or 3 lymph nodes are matted. #3. Chronic asthma with allergic rhinitis: Not on any chronic inhalers, will have PRN albuterol, continue patient home loratadine. #4. Hypertension: Judiciously hydrating given presentation, previously been on diuretic, not currently listed on a regimen, clarified to be certain, PRN hydralazine. Kidney function: Creatinine went from 1.08-1.24. #6. Melanocytic nevus: Patient following thu/ Dr. Jackson, nevus on the sole of R foot since , biopsy done on 10/17/2021 which showed Melanoma with PET/CT on 11/18/2021 was negative. 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 Currently consider admission, encourage continued follow-up with dermatology as previously arranged. #7. Morbid Obesity: Weight loss and lifestyle changes encouraged. #8. DORENE: CPAP nightly. #9. DVT prophylaxis: Lovenox. Charges/Coding Visit Charges Inpatient E&M: 28260 Subs Hosp L2
[2025-10-10] MEDS: 0.9% Normal Saline (250mL Bag) 250 ML 15 ML IV ×2 (12:38→23:35)
[2025-10-10] MEDS: Vancomycin Trough/Random Due 1 LAB MC (22:00)
[2025-10-10 22:40] LABS: Vancomycin, Trough Level 10.4 ug/mL (5.0-15.0)
--- NOTE | 2025-10-10 23:19 | PCM.RX.CS ---
Consult Antibiotic Management Pharmacy has been consulted to manage selected antibiotic: Vancomycin Type of Intervention Type of Consult: Follow-up Labs Labs: Sodium 139 mmol/L (133-145) 10/10/25 07:00 Potassium 4.1 mmol/L (3.3-5.1) 10/10/25 07:00 Chloride 108 mmol/L (98-108) 10/10/25 07:00 Carbon Dioxide 22.3 mmol/L (21.0-32.0) 10/10/25 07:00 Anion Gap 9 (5-15) 10/10/25 07:00 BUN 14 mg/dL (4-19) 10/10/25 07:00 Creatinine 1.24 mg/dL (0.70-1.20) H 10/10/25 07:00 Est GFR (MDRD) Non-Af 76 (>60) 10/10/25 07:00 BUN/Creatinine Ratio 11.0 RATIO (10-20) 10/10/25 07:00 Glucose 127 mg/dL (70-99) H 10/10/25 07:00 Vancomycin Trough 10.4 ug/mL (5.0-15.0) 10/10/25 22:07 Microbiology Microbiology: Microbiology 10/10/25 00:20 Nasal Secretion MRSA (PCR) - Final 10/09/25 19:54 Mucosa - Nose SARS-CoV-2, Influenza & RSV (PCR) - Final Goal Trough Goal Trough: 15-20 mcg/mL Pharmacy Plan for Drug Dosing Pharmacy Plan for Drug Dosing: Pharmacy Service will continue to monitor and adjust dosing as required. TROUGH 10.4 @ 9.5 HOURS. INCREASE TO 1750MG Q8H AND DRAW TROUGH PRIOR TO 4TH DOSE Follow-Up Labs Follow-Up Labs: Trough: Vancomycin Date/Time Labs Ordered Labs to be done on [date and time ordered]: 10/11 @ 5666
[2025-10-10] MEDS: Vancomycin HCl 1,750 MG in 0.9% Normal Saline (500mL Bag) 500 ML 250 MG IV (23:40)
[2025-10-11 03:06] VITALS: BP 151/91; PULSE 100; RESP 18; TEMP 36.8; O2SAT 100
[2025-10-11] MEDS: Ketorolac 30 MG/ML Syringe IV (03:11)
[2025-10-11] MEDS: 0.9% Saline Lock 10 ML Syringe IV (03:11)
[2025-10-11] MEDS: Piperacil/Tazobactam 3.375 GM in 0.9% Normal Saline (50mL MB+) 50 ML IV (05:17)
[2025-10-11 05:36] VITALS: BMI 39.7
[2025-10-11] MEDS: Vancomycin HCl 1,750 MG in 0.9% Normal Saline (500mL Bag) 500 ML 250 MG IV (07:31)
[2025-10-11 08:55] VITALS: BP 149/88; PULSE 108; RESP 16; TEMP 36.9; O2SAT 96
--- NOTE | 2025-10-11 10:05 | DCINST_ITS ---
Discharge Instructions DC O2, CPAP, BIPAP needs Home O2 Discharge instructions: No Dressing / Incision Discharge Activity: Return to Normal Activity Weight Bearing Status: Weight bearing as tolerated Dressing / Incision Call your doctor if you observe: Fever of 101 or Higher, Coldness, Increased Pain, Numbness or Tingling, Change in Color, Inability to urinate, Inability to have a bowel movement, Shortness of breath, Dizziness, Fainting spells, Swelling in the ankles, Chest pain, Prolonged hiccupping, Increased palpitations (irregular heartbeat) and Calf discomfort Follow Up Care When: IN 2 WEEKS Test Results: Test results from this visit will be discussed in further detail at your follow- up appointment, if applicable. Discharge Plan Admission Admit Date/Time: 10/09/25 22:58 Primary Reason for Your Visit: acute on recurrent RLE cellulitis Attending Provider: Juan Pablo Gramajo Primary Care Provider: Arminda Mayen Consulting Providers: Suzi Castaneda Discharge Orders/Prescriptions Prescriptions: New cefdinir 300 mg capsule 300 mg PO BID 5 Days Qty: 10 0RF Continued loratadine 10 MG capsule 10 mg PO DAILY Referrals / Follow Up: Arminda Mayen MD [Primary Care Provider, Internal Medicine] - In 1 Week Referral Note: for hyperglycemia Disposition Disposition (needs filled in before D/C Order can be placed): Home, Self Care
[2025-10-11 10:06] LABS: Hematocrit 32.9 % (40-54); Hemoglobin 11.4 g/dL (13.0-16.5); Immature Granulocytes Count 0.040 X10^3/uL (0.0-0.0); Mean Corp Hgb Conc 34.7 g/dL (32-36); Mean Corpuscular Volume 90.6 fL (80-94); Mean Platelet Vol. 9.8 fl (6.2-12.0); NRBC Flagged by Analyzer 0 % (0-5); Platelet Count 221 K/mm3 (150-450); RBC Distribution Width CV 12.7 % (11.6-14.6); RBC Distribution Width SD 42.0 fl (35.1-43.9); Red Blood Count 3.63 M/mm3 (4.6-6.2); White Blood Count 7.6 K/mm3 (4.4-11.0)
[2025-10-11 10:58] LABS: Anion Gap 8 (5-15); BUN 9 mg/dL (4-19); BUN/Creat Ratio 9.2 RATIO (10-20); Calcium,Total 8.2 mg/dL (7.6-11.0); Carbon Dioxide 21.6 mmol/L (21.0-32.0); Chloride 108 mmol/L (98-108); Estimated Creatinine Clearance 151.66 ml/min (50-250); Glucose 192 mg/dL (70-99); Potassium 3.8 mmol/L (3.3-5.1)
--- NOTE | 2025-10-11 11:09 | DS.PCM_ITS ---
Providers Date of Admission: 10/09/25 Date of Discharge: 10/11/25 Primary Care Physician: Dr. Arminda Mayen MD Reason For Visit: RLE CELLULITIS Diagnosis Discharge Diagnosis (1) Cellulitis of leg, right: Status: Acute Code(s): L03.115 - Cellulitis of right lower limb Plan The patient is a 40 y/o M w/ PMHx: 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 Jackson, admitted with right lower extremity redness, fever and vomiting at home. He has history of cellulitis in the past. 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 He also had sentinel lymph node exam which turned out to be negative still he had right inguinal lymph peridectomy. Since then he gets recurrent cellulitis and this time it is the fourth episode. His right leg is also mildly swollen than left probably from the right lymphadenectomy and lymphedema. No history of diabetes #1. Acute Right Lower Extremity Cellulitis with notable tachycardia, fever, leukocytosis, mild lactic acidosis but no endorgan damage: Patient is being admitted on [facility] floor. Was aggressively rehydrated with IV fluid and started on vancomycin and Zosyn. MRSA PCR negative. Vancomycin discontinued. Zosyn changed to Unasyn as antibiotic stewardship protocol 10/11: RLE swelling and redness has improved. No intubation. Patient had 2 days of IV antibiotics in the hospital. Discharged on cefdinir for 5 more days. Advised GATO hose/light Sina wrap bandage for RLE lymphedema. Labs reviewed. Leukocytosis resolved. He has hyperglycemia and advised follow-up PCP to check A1c and manage accordingly. #2. Possible acute on chronic right sided inguinal lymphadenopathy after right inguinal lymph node with surgery during excision of right foot melanoma nevus:: CT abdomen and pelvis with noted prominent left iliac and inguinal lymph nodes with adjacent stranding, suggestive of acute lymphadenitis. On exam there is no inguinal lymph node tenderness although it is enlarged and 2 or 3 lymph nodes are matted. #3. Chronic asthma with allergic rhinitis: Not on any chronic inhalers, will have PRN albuterol, continue patient home loratadine. #4. Hypertension: Judiciously hydrating given presentation, previously been on diuretic, not currently listed on a regimen, clarified to be certain, PRN hydralazine. 10/11 blood pressure is elevated 149/88. Advised follow-up PCP to start on antihypertensive medication probably HCTZ/SINA/ARB inhibitor as first-line medication Elevated creatinine, abnormal kidney function: Creatinine went from 1.08-1.24. 10/11: Creatinine 1.03. Does not qualify for IFTIKHAR. #6. Melanocytic nevus: Patient following w/ Dr. Jackson, nevus on the sole of R foot since , biopsy done on 10/17/2021 which showed Melanoma with PET/CT on 11/18/2021 was negative. 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 Currently consider admission, encourage continued follow-up with dermatology as previously arranged. #7. Morbid Obesity: Weight loss and lifestyle changes encouraged. #8. DORENE: CPAP nightly. #9. DVT prophylaxis: Lovenox. Discharge medication reconciliation done. Discharge follow-up instructions completed. Discharge process discussed with the patient and all questions were answered to patient's satisfaction. Follow with PCP in 1 to 2 weeks Total time spent, exact 35 minutes on discharge meds reconciliation, examination, coordination of care with nurses and ancillary staff, review of imaging and blood test and discussion with the patient on follow-up instructions. Medications at Discharge Home Medications loratadine 10 mg capsule 10 mg PO DAILY ALLERGIES 02/13/21 cefdinir 300 mg capsule 300 mg PO BID 5 days #10 caps 10/11/25 Physical Exam Narrative Seen and examined No fever. Right leg swelling and redness is better. Physical exam General: Alert, Oriented x3, Cooperative. Obesity grade 2 BMI 39.7 kg/m² HEENT: Atraumatic, PERRLA, EOMI, Normocephalic. Oral: No Gingival or Mucosal Lesions/ Ulcerations Neck: Supple, No JVD, Negative Carotid Bruits Chest wall/Lungs: Air entry diminished in bilateral lung bases. No crepitation/rhonchi Cardiovascular: Regular rate and rhythm, Normal S1,S2, No M/G/R Abdomen: Bowel Sounds Present, Soft, Non Tender, Non-Distended : No dysuria. No renal angle tenderness. No suprapubic tenderness. Extremities: No edema, Capillary Refill Less than 3 Seconds Skin: Peeling of his skin of interdigital space of right 4th and 5th toe. Eschar at the right plantar aspect from excision of melanoma nevus Musculoskeletal: Right inguinal lymph node swollen enlarged but not tender. Right leg erythematous, slightly tender but no induration. Neurological: Cranial nerves II-XII grossly intact, DTR 2+/4. No acute focal neurological deficit. Psych/Mental Status: Normal Affect, Appropriate. Weight / BMI Weight Weight: 326 lb 11.601 oz Body Mass Index (BMI) 39.7 ABG / Lab / Microbiology Data 10/11/25 09:51 10/11/25 09:51 Laboratory: Laboratory Results - last 24 hr 10/10/25 22:07: Vancomycin Trough 10.4 10/11/25 09:51: WBC 7.6, RBC 3.63 L, Hgb 11.4 L, Hct 32.9 L, MCV 90.6, MCH 31.4, MCHC 34.7, RDW Std Deviation 42.0, RDW Coeff of Geoff 12.7, Plt Count 221, MPV 9.8, Immature Gran % (Auto) 0.500, Neut % (Auto) 84.8 H, Lymph % (Auto) 8.9 L, [place] % (Auto) 5.5, Eos % (Auto) 0.0, Baso % (Auto) 0.3, Absolute Neuts (auto) 6.5, Absolute Lymphs (auto) 0.68 L, Nucleated RBC % 0, Sodium 138, Potassium 3.8, Chloride 108, Carbon Dioxide 21.6, Anion Gap 8, BUN 9, Creatinine 1.03, Estim Creat Clear Calc 151.66, Est GFR (MDRD) Non-Af 95, BUN/Creatinine Ratio 9.2 L, Glucose 192 H, Calcium 8.2 Microbiology: Microbiology 10/09/25 20:49 Urine, Clean Catch Urine Culture - Preliminary Culture exhibits no growth. 10/10/25 00:20 Nasal Secretion MRSA (PCR) - Final 10/09/25 19:54 Mucosa - Nose SARS-CoV-2, Influenza & RSV (PCR) - Final D/C Instructions Weight Bearing Status: Weight bearing as tolerated Call your doctor if you observe: Fever of 101 or Higher, Coldness, Increased Pain, Numbness or Tingling, Change in Color, Inability to urinate, Inability to have a bowel movement, Shortness of breath, Dizziness, Fainting spells, Swelling in the ankles, Chest pain, Prolonged hiccupping, Increased palpitations (irregular heartbeat) and Calf discomfort DC O2, CPAP, BIPAP Needs Home O2 Discharge instructions: No When: IN 2 WEEKS Meaningful Use Info Meaningful Use Meaningful Use Diagnoses (Choose all that apply): None applicable Discharge Plan Admission Admit Date/Time: 10/09/25 22:58 Primary Reason for Your Visit: acute on recurrent RLE cellulitis Attending Provider: Juan Pablo Gramajo Primary Care Provider: Arminda Mayen Consulting Providers: Suzi Castaneda Discharge Orders/Prescriptions Prescriptions: New cefdinir 300 mg capsule 300 mg PO BID 5 Days Qty: 10 0RF Continued loratadine 10 MG capsule 10 mg PO DAILY Referrals / Follow Up: Arminda Mayen MD [Primary Care Provider, Internal Medicine] - In 1 Week Referral Note: for hyperglycemia Disposition Disposition (needs filled in before D/C Order can be placed): Home, Self Care Charges/Coding Visit Charges Inpatient E&M: 33000 Disch Hosp >30min
--- NOTE | 2025-10-11 12:27 | PHA.DC.COU.R ---
Pharmacy [facility] has performed discharge medication counseling for this patient. The patient was counseled on the following discharge medications and changes in medications for homegoing review. - Cefdinir 300 mg capsule The Reason for Use, instructions for use, and potential side effects were reviewed for all new medications. The patient's questions regarding all of their medications were answered. The patient was able to verbally demonstrate an understanding of their discharge medications. Medications at Discharge Home Medications loratadine 10 mg capsule 10 mg PO DAILY ALLERGIES 02/13/21 cefdinir 300 mg capsule 300 mg PO BID 5 days #10 caps 10/11/25
[2025-10-11 13:32] VITALS: BP 140/91; PULSE 100; RESP 16; TEMP 36.5; O2SAT 99
== END 2025-10-11 13:55 | disposition home or self-care (01) | DRG 603 ==
LOC: ED 19:22 → MS3 23:10
PROVIDERS: Admitting Provider Family Medicine; Emergency Provider Student in an Organized Health Care Education/Training Program; PCP Internal Medicine; Visit Provider Internal Medicine
DX: L03.115 Cellulitis of right lower limb (principal); E87.20 Acidosis, unspecified; I12.9 Hypertensive chronic kidney disease with stage 1 through stage 4 chronic kidney disease, or unspecified chronic kidney disease; J45.909 Unspecified asthma, uncomplicated; Z68.39 Body mass index [BMI] 39.0-39.9, adult; G47.33 Obstructive sleep apnea (adult) (pediatric); N18.2 Chronic kidney disease, stage 2 (mild); I89.0 Lymphedema, not elsewhere classified; E66.812 Obesity, class 2; L04.1 Acute lymphadenitis of trunk; D22.71 Melanocytic nevi of right lower limb, including hip; R73.9 Hyperglycemia, unspecified; R00.0 Tachycardia, unspecified; Z98.890 Other specified postprocedural states
CPT/HCPCS: 36415; 71046; 74177; 80048; 80053; 80202; 81001; 83605; 85025; 85610; 85730; 87040; 87086; 87631; 87641; 93005; 93971; 99285; Q9967; A4216; J2405

== ENCOUNTER → 2025-10-17 | Outpatient (CLI) | payer BC, SELFPAY ==
[2025-10-17 13:17] LABS: Hematocrit 43.1 % (40-54); Hemoglobin 14.5 g/dL (13.0-16.5); Immature Granulocytes Count 0.120 X10^3/uL (0.0-0.0); Mean Corp Hgb Conc 33.6 g/dL (32-36); Mean Corpuscular Volume 91.9 fL (80-94); Mean Platelet Vol. 9.9 fl (6.2-12.0); NRBC Flagged by Analyzer 0 % (0-5); Platelet Count 544 K/mm3 (150-450); RBC Distribution Width CV 12.5 % (11.6-14.6); RBC Distribution Width SD 41.8 fl (35.1-43.9); Red Blood Count 4.69 M/mm3 (4.6-6.2); White Blood Count 9.3 K/mm3 (4.4-11.0)
--- OUTSIDE RECORDS SUMMARY | 2025-10-17 13:37 | XMS RPT_ITS | CCD ---
Author Organization [facility] Care Team Providers Care Sterile Proc Tech Name Role Phone Faheem MONTESINOS, Drew Mcclain Primary Care Provider Manuel HUITRON/Riaz SINGLETARY Unavailable [...] Provider [phone] BO Lincoln Attending Provider [phone] Faheem MONTESINOS, Drew Mcclain Primary Care Provider [phone] FAHEEM, EFEWONGBE B Primary Care Unavailable Faheem MONTESINOS, Dr. Hilliard Primary Care Provider Efren MONTESINOS, Dr. Melchor Attending Provider Efren MONTESINOS, Dr. Melchor Emergency Provider Faheem MONTESINOS, Dr. Hilliard Referring Provider [phone] Telly Lincoln Attending Provider [phone] Faheem MONTESINOS, Dr. Hilliard Attending Provider [phone]) Faheem MONTESINOS, Dr. Hilliard Primary Care Provider Faheem MONTESINOS, Dr. Hilliard Referring Provider [phone] Oleghe, Efewongbe Primary Care Unavailable Oleghe, Efewongbe Referring Unavailable Oleghe, Efewongbe Attending Unavailable Oleghe, Efewongbe Primary Care Unavailable Oleghe, Efewongbe Referring Unavailable Oleghe, Efewongbe Attending Unavailable White, Suzi L Consulting Unavailable White, Suzi L Admitting Unavailable Oleghe, Efewongbe Primary Care Unavailable Avila, Juan Pablo Attending Unavailable Avila, Juan Pablo Consulting Unavailable Oleghe, Efewongbe Primary Care Unavailable White Suzi L Attending Unavailable Oleghe, Efewongbe Primary Care Unavailable Ruiz Schwartz Attending Unavailable Oleghe, Efewongbe Referring Unavailable Oleghe, Efewongbe Primary Care Unavailable Telly Lincoln Attending Unavailable Allergies Allergy Classification Reported Allergen(s) Allergy Type Date of Onset Reaction(s) Facility (3 sources) Shellfish-Deriv ed Products Propensity to adverse reactions to drug 2 Nausea and Vomiting [facility] (12 sources) Shellfish; Translations: [shellfish derived] Allergy to substance 2 [facility] Medications Current Medications Medication Drug [...] Polymyxin-class Antibacterial Start: 02-18-2022 bacitracin-polymy roula b [id number] UNIT/GM Ointment Indications: Follow up , S/P [...] mg tablet Discontinued 1 {tbl} PO Q12H September 30, 2019 12:00am October 09, 2019 1:00am October 11, 2019 1:07am Start: 09-30-2019 End: 10-11-2019 take 1 tablet by mouth every twelve hours Amoxicillin-Pot Clavulanate Discontinued 1 TABLET PO Q12H 17 09September 30, 2019 12:00am October 11, 2019 1:07am [...] 100 mg PO TWICE A DAY 15 November 24, 2022 1:00am March 08, 2023 11:06am start on 11/24/22 in the evening famotidine 20 mg oral tablet (2 sources) Histamine-2 Receptor Antagonist Start: 02-07-2025 End: 05-09-2025 take 1 tablet by mouth twice daily Famotidine 20 mg tablet Discontinued 20 mg PO TWICE A DAY 20 February 07, 2025 12:00am May 09, 2025 2:35pm ferrous sulfate 325 mg oral tablet (13 sources) Start: 11-24-2022 End: 10-11-2023 take 1 tablet by mouth twice daily Ferrous Sulfate 325 mg (65 mg iron) tablet Discontinued 325 mg PO TWICE A DAY 60 November 24, 2022 1:00am October 11, 2023 [...] tablet Discontinued 1 {tbl} PO EVERY MORNING 90 November 08, 2024 9:20am February 07, 2025 2:09pm BLOOD PRESSURE Start: 03-08-2023 End: 07-09-2023 take 1 tablet by mouth once daily in the morning Triamterene-Hydrochlorothiazid Active 1 TABLET PO EVERY MORNING 90 July 09, 2023 1:29pm Start: 08-15-2021 End: [...] ntinued 1 NMA TOPICAL TWICE A DAY 15 Fabienne 31st, 2024 12:00am February 07, 2025 1:40pm oxyCODONE [...] tablet Discontinued 80 mg PO DAILY 90 November 08, 2024 9:21am February 07, 2025 [...] will like to go to [facility] in [place].Excision biopsy on 12/26/2021 showed R foot Melanocytic [...] mass and lump, unspecified] 06-28-2024 Episodic Other upper respiratory disease (2 sources) [...] limb; Translations: [Cellulitis of right lower limb] Onset: 10-11-2025 Episodic Past or Other Problems Problem Classification Problem Date Documented Da te Episodic/Chronic Mood disorders (3 sources) Mood disorders Onset: 01-07-2022 01-07-2022 Other skin disorders (1 source) Rash and other nonspecific skin eruption; Translations: [Rash and other nonspecific skin eruption] Onset: 07-11-2025 Episodic Unclassified (1 source) Onset: 01-07-2022 01-07-2022 Results Test Name Value Interpretation Reference Range Facility CBC W/Diff, Automatedon 09-29 Absolute Lymph 0.93 X10 3/uL Normal 0.83-4.51 [facility] Comment on above: Performed By: #### L 500.4050, L100.0100 ####[facility] [address] [place], [address] Absolute Neut 13.7 X10 3/uL High 2.0-7.7 [facility] Comment on above: Performed By: #### L 500.4050, L100.0100 ####[facility] [address] [place], [address] Basophils/100 WBC (Bld) 0.3 % Normal 0-1 [facility] Comment on above: Performed By: #### L 500.4050, L100.0100 ####[facility] [address] [place], [address] Eosinophils/100 WBC (Bld) 0.0 % Normal 0-5 [facility] Comment on above: Performed By: #### L 500.4050, L100.0100 ####[facility] [address] [place], [address] Erythrocyte distribution width (RBC) [Ratio] 12.8 % Normal 11.6-14.6 [facility] Comment on above: Performed By: #### L 500.4050, L100.0100 ####[facility] [address] [place], [address] Hematocrit (Bld) [Volume fraction] 36.6 % Low 40-54 [facility] Comment on above: Performed By: #### L 500.4050, L100.0100 ####[facility] [address] [place], [address] Hemoglobin (Bld) [Mass/Vol] 12.5 g/dL Low 13.0-16.5 [facility] Comment on above: Performed By: #### L 500.4050, L100.0100 ####[facility] [address] [place], [address] IG% 0.600 Normal 0.0-0.9 [facility] Comment on above: Result Comment: IG% - Immature Granulocytes (promyelocytes, myelocytes and metamyelocytes) > 1% indicates that a LEFT SHIFT is Present. Performed By: #### L 500.4050, L100.0100 ####[facility] [address] [place], [address] Lymphocytes/100 WBC (Bld) 6.0 % Low 19-41 [facility] Comment on above: Performed By: #### L 500.4050, L100.0100 ####[facility] [address] [place], [address] MCH (RBC) [Entitic mass] 31.5 pg Normal 27.0-32.0 [facility] Comment on above: Performed By: #### L 500.4050, L100.0100 ####[facility] [address] [place], [address] MCHC (RBC) [Mass/Vol] 34.2 g/dL Normal 32-36 [facility] Comment on above: Performed By: #### L 500.4050, L100.0100 ####[facility] [address] [place], [address] MCV (RBC) [Entitic vol] 92.2 fL Normal 80-94 [facility] Comment on above: Performed By: #### L 500.4050, L100.0100 ####[facility] [address] [place], [address] Monocytes/100 WBC (Bld) 4.9 % Normal 0-10 [facility] Comment on above: Performed By: #### L 500.4050, L100.0100 ####[facility] [address] [place], [address] Neutrophils/100 WBC (Bld) 88.2 % High 47-70 [facility] Comment on above: Performed By: #### L 500.4050, L100.0100 ####[facility] [address] [place], [address] Nucleated RBC (Bld) [#/Vol] 0 10*3/uL Normal 0-5 [facility] Comment on above: Performed By: #### L 500.4050, L100.0100 ####[facility] [address] [place], [address] Platelet mean volume (Bld) [Entitic vol] 10.1 fL Normal 6.2-12.0 [facility] Comment on above: Performed By: #### L 500.4050, L100.0100 ####[facility] [address] [place], [address] Platelets (Bld) [#/Vol] 266 10*3/uL Normal 150-450 [facility] Comment on above: Performed By: #### L 500.4050, L100.0100 ####[facility] [address] [place], [address] RBC (Bld) [#/Vol] 3.97 10*6/uL Low 4.6-6.2 [facility] Comment on above: Performed By: #### L 500.4050, L100.0100 ####[facility] [address] [place], [address] RDW SD 43.1 fl Normal 35.1-43.9 [facility] Comment on above: Performed By: #### L 500.4050, L100.0100 ####[facility] [address] [place], [address] WBC (Bld) [#/Vol] 15.5 10*3/uL High 4.4-11.0 [facility] Comment on above: Performed By: #### L 500.4050, L100.0100 ####[facility] [address] [place], [address] Comprehensive Metabolic Prof ilon 10-10-2025 Albumin [Mass/Vol] 3.5 g/dL Normal 3.5-5.0 [facility] Comment on above: Performed By: #### L 500.4050, L100.0100 ####[facility] [address] [place], [address] Albumin/Globulin [Mass ratio] 1.6 {ratio} Normal 0.9-2.4 [facility] Comment on above: Performed By: #### L 500.4050, L100.0100 ####[facility] [address] [place], [address] ALK PHOS 52 U/L Normal 40-129 [facility] Comment on above: Performed By: #### L 500.4050, L100.0100 ####[facility] [address] [place], [address] ALT [Catalytic activity/Vol] 31 U/L Normal <=46 [facility] Comment on above: Performed By: #### L 500.4050, L100.0100 ####[facility] [address] [place], [address] AST [Catalytic activity/Vol] 19 U/L Normal <=37 [facility] Comment on above: Performed By: #### L 500.4050, L100.0100 ####[facility] [address] [place], [address] Bilirubin [Mass/Vol] 1.10 mg/dL Normal 0.00-1.30 [facility] Comment on above: Performed By: #### L 500.4050, L100.0100 ####[facility] [address] [place], [address] BUN/CRE 11.0 RATIO Normal 10-20 [facility] Comment on above: Performed By: #### L 500.4050, L100.0100 ####[facility] [address] [place], [address] Calcium [Mass/Vol] 7.8 mg/dL Normal 7.6-11.0 [facility] Comment on above: Performed By: #### L 500.4050, L100.0100 ####[facility] [address] [place], [address] Chloride [Moles/Vol] 108 mmol/L Normal 98-108 [facility] Comment on above: Performed By: #### L 500.4050, L100.0100 ####[facility] [address] [place], [address] CO2 [Moles/Vol] 22.3 mmol/L Normal 21.0-32.0 [facility] Comment on above: Performed By: #### L 500.4050, L100.0100 ####[facility] [address] [place], [address] Creatinine [Mass/Vol] 1.24 mg/dL High 0.70-1.20 [facility] Comment on above: Performed By: #### L 500.4050, L100.0100 ####[facility] [address] [place], [address] ECRCL 125.89 ml/min Normal 50-250 [facility] Comment on above: Performed By: #### L 500.4050, L100.0100 ####[facility] [address] [place], [address] GAP 9 Normal 5-15 [facility] Comment on above: Performed By: #### L 500.4050, L100.0100 ####[facility] [address] [place], [address] GFR/1.73 sq M.predicted among non-blacks MDRD (S/P/Bld) [Vol rate/Area] 76 mL/min/{1.73_m2} Normal >60 [facility] Comment on above: Result Comment: mL/m in/1.73m2 CKD-EPI Creatinine Equation (2020) Performed By: #### L 500.4050, L100.0100 ####[facility] [address] [place], [address] Globulin (S) [Mass/Vol] 2.2 g/dL Normal 2.2-4.2 [facility] Comment on above: Performed By: #### L 500.4050, L100.0100 ####[facility] [address] [place], [address] Glucose [Mass/Vol] 127 mg/dL High 70-99 [facility] Comment on above: Performed By: #### L 500.4050, L100.0100 ####[facility] [address] [place], [address] Potassium [Moles/Vol] 4.1 mmol/L Normal 3.3-5.1 [facility] Comment on above: Performed By: #### L 500.4050, L100.0100 ####[facility] [address] [place], [address] Sodium [Moles/Vol] 139 mmol/L Normal 133-145 [facility] Comment on above: Performed By: #### L 500.4050, L100.0100 ####[facility] [address] [place], [address] T PROT 5.7 g/dL Low 5.9-8.4 [facility] Comment on above: Performed By: #### L 500.4050, L100.0100 ####[facility] [address] [place], [address] Urea nitrogen [Mass/Vol] 14 mg/dL Normal 4-19 [facility] Comment on above: Performed By: #### L 500.4050, L100.0100 ####[facility] [address] [place], [address] M8200.1000on 10-10-2025 M8200.1000 Normal Reference Ran ge = Negative MRSA DNA Nose Ql HUGO+probe GeneXpert Instrument, PCR method MRSA PCR MRSA NEGATIVE Normal [facility] Comment on above: Performed By: #### L 500.2500, L100.0100 #### [facility] [address] [place], [address] Vancomycin, Trough Levelon 12-10-2024 VANCO, TROUGH 10.4 ug/mL Normal 5.0-15.0 [facility] Comment on above: Order Comment: 2100 Result Comment: Giovanni mmended goal trough ranges are generally 10-15 mcg/ml for less severe/complicated infections such as cellulitis or UTI and 15-20 mcg/ml for more severe/complicated infections such as bacteremia/sepsis, osteomyelitis, pneumonia or meningitis. Goal trough ranges should take into account indication, patient-specific factors and organism RAJ. VANCOMYCIN STANDARED DRUG THERAPY TROUGH LEVEL: 5.0 - 15.0 mg/L VANCOMYCIN HIGH INTENSITY THERAPY TROUGH LEVEL: 15.0 - 20.0 mg/L High Intensity therapy recommended for serious life threatening infections include: - Meningitis -Endocarditis -Pneumonia (Ventilator/Healtcare Associated) -Sepsis PLEASE CONTACT PHARMACY SERVICES (#[id number]) FOR INTERPRETATION OF RESULTS. Performed By: #### L 501.8820 #### [facility] [address] [place], [address] 12 Lead EKGon 10-09-2025 12 Lead EKG [facility] Cardiovascular Services [address] [place] [address] 12 Lead EKG 10/09/25 1937 MR#: [id number] Acct: [id number] Name: RIAZ DIOP Rep #: [id number] : 1985 39 From: Trinidad Ratliff MD Attending Dr: Dr. Juan Pablo Gramajo MD Status: ADM IN Ordering Dr: Pratima Whitlock MD Date: 10/09/25 Location: [facility] Sex: M C Admitted: 10/09/25 Test Reason : DYSRHYTHMIA Blood Pressure : */* mmHG Vent. Rate : 122 BPM Atrial Rate : 122 BPM P-R Int : 184 ms QRS Dur : 86 ms QT Int : 298 ms P-R-T Axes : 51 27 59 degrees QTcB Int : 424 ms Sinus tachycardia Possible Left atrial enlargement Borderline ECG Confirmed by Trinidad Ratliff ([id number]), metropolitan editor GERMÁN YEAGER ([id number]) on 10/10/2025 10:38:41 AM Referred By: Confirmed By: Trinidad Ratliff 10/10/25 1038 Date Trinidad Ratliff MD CC: Dr. Drew Mayen MD; Dr. Pratima Whitlock MD; Dr. Juan Pablo Gramajo MD Signed Normal [facility] Abdomen/Pelvis W IV Cont ONL Yon 10-09-2025 Abdomen/Pelvis W IV Cont ONLY [facility] Imaging Services [address] [place] [id number] Abdomen/Pelvis W IV Cont ONLY MR#: [id number] Acct: [id number] Name: RIAZ DIOP Rep #: [id number] : 1985 M 39 From: Trudy Torres MD PCP: Dr. Drew Mayen MD Status: REG ER Study: Abdomen/Pelvis W IV Cont ONLY Date of Exam: Exam# [id number] Ordering Dr: Pratima Whitlock MD PROCEDURE: ABDOMEN/PELVIS W IV CONT ONLY 10/09/2025 REASON FOR EXAM: NAUSEA, VOMITING TECHNIQUE: Procedure Code: CTABDPELIV Modality: CT Procedure: ABDOMEN/PELVIS W IV CONT ONLY Coronal and Sagittal reconstruction series were provided. CONTRAST: Isovue 370 VOLUME: 100 mL One or more dose reduction techniques were used (e.g., Automated exposure control, adjustment of the mA and/or kV according to patient size, use of iterative reconstruction technique. RADIATION DOSE SUMMARY: CTDlvol: 19.95, 24.16 mGy DLP: 1465 mGycm COMPARISON: 11/16/2023 FINDINGS: LUNG BASES: No basilar airspace consolidation or pleural effusion. LIVER: Unremarkable. GALLBLADDER: Prior cholecystectomy. BILE DUCTS: No ductal dilation. PANCREAS: Unremarkable. SPLEEN: Unremarkable. ADRENAL GLANDS: Unremarkable. 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 Normal right renal enhancement. No hydronephrosis or hydroureter. STOMACH AND BOWEL: No obstruction or perforation. No wall thickening. No CT evidence of colitis or acute diverticulitis. APPENDIX: Surgically absent. RETRO/PERITONEUM: No free fluid. No free air. LYMPH NODES: Multiple mildly prominent right iliac chain and inguinal lymph nodes with adjacent stranding, which is new since the prior study. PELVIC ORGANS: Unremarkable urinary bladder, prostate gland and right seminal vesicles. It appears that the left seminal vesicles are absent. VASCULATURE: No aortic aneurysm. ABDOMINAL WALL AND SOFT TISSUES: Surgical clips in the right inguinal region. BONES: No fracture or suspicious osseous abnormality. CT/Abdomen/Pelvis W IV Cont ONLY IMPRESSION: 1. Mildly prominent left iliac and inguinal lymph nodes with adjacent stranding, suggesting acute lymphadenitis. 2. No signs of bowel inflammation, perforation or obstruction. 3. 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 Reading Location: [facility] CC: Dr. Drew Mayen MD; Dr. Pratima Whitlock MD Nature Photographer: Signed Normal [facility] CBC W/Diff, Automatedon 09-29 Absolute Lymph 0.66 X10 3/uL Low 0.83-4.51 [facility] Comment on above: Performed By: #### L 100.0100, L300.4310, L503.6005, L300.3900, L500.4050 #### [facility] [address] [place], [place], [address] Absolute Neut 16.4 X10 3/uL High 2.0-7.7 [facility] Comment on above: Performed By: #### L 100.0100, L300.4310, L503.6005, L300.3900, L500.4050 #### [facility] [address] [place], [address] Basophils/100 WBC (Bld) 0.2 % Normal 0-1 [facility] Comment on above: Performed By: #### L 100.0100, L300.4310, L503.6005, L300.3900, L500.4050 #### [facility] [address] [place], [address] Eosinophils/100 WBC (Bld) 0.4 % Normal 0-5 [facility] Comment on above: Performed By: #### L 100.0100, L300.4310, L503.6005, L300.3900, L500.4050 #### [facility] [address] [place], [address] Erythrocyte distribution width (RBC) [Ratio] 12.4 % Normal 11.6-14.6 [facility] Comment on above: Performed By: #### L 100.0100, L300.4310, L503.6005, L300.3900, L500.4050 #### [facility] [address] [place], [address] Hematocrit (Bld) [Volume fraction] 41.4 % Normal 40-54 [facility] Comment on above: Performed By: #### L 100.0100, L300.4310, L503.6005, L300.3900, L500.4050 #### [facility] [address] [place], [address] Hemoglobin (Bld) [Mass/Vol] 15.0 g/dL Normal 13.0-16.5 [facility] Comment on above: Performed By: #### L 100.0100, L300.4310, L503.6005, L300.3900, L500.4050 #### [facility] [address] [place], [address] IG% 0.700 Normal 0.0-0.9 [facility] Comment on above: Result Comment: IG% - Immature Granulocytes (promyelocytes, myelocytes and metamyelocytes) > 1% indicates that a LEFT SHIFT is Present. Performed By: #### L 100.0100, L300.4310, L503.6005, L300.3900, L500.4050 #### [facility] [address] [place], [address] Lymphocytes/100 WBC (Bld) 3.7 % Low 19-41 [facility] Comment on above: Performed By: #### L 100.0100, L300.4310, L503.6005, L300.3900, L500.4050 #### [facility] [address] [place], [address] MCH (RBC) [Entitic mass] 31.6 pg Normal 27.0-32.0 [facility] Comment on above: Performed By: #### L 100.0100, L300.4310, L503.6005, L300.3900, L500.4050 #### [facility] [address] [place], [address] MCHC (RBC) [Mass/Vol] 36.2 g/dL High 32-36 [facility] Comment on above: Performed By: #### L 100.0100, L300.4310, L503.6005, L300.3900, L500.4050 #### [facility] [address] [place], [address] MCV (RBC) [Entitic vol] 87.3 fL Normal 80-94 [facility] Comment on above: Performed By: #### L 100.0100, L300.4310, L503.6005, L300.3900, L500.4050 #### [facility] [address] [place], [address] Monocytes/100 WBC (Bld) 3.4 % Normal 0-10 [facility] Comment on above: Performed By: #### L 100.0100, L300.4310, L503.6005, L300.3900, L500.4050 #### [facility] [address] [place], [address] Neutrophils/100 WBC (Bld) 91.6 % High 47-70 [facility] Comment on above: Performed By: #### L 100.0100, L300.4310, L503.6005, L300.3900, L500.4050 #### [facility] [address] [place], [address] Nucleated RBC (Bld) [#/Vol] 0 10*3/uL Normal 0-5 [facility] Comment on above: Performed By: #### L 100.0100, L300.4310, L503.6005, L300.3900, L500.4050 #### [facility] [address] [place], [address] Platelet mean volume (Bld) [Entitic vol] 10.1 fL Normal 6.2-12.0 [facility] Comment on above: Performed By: #### L 100.0100, L300.4310, L503.6005, L300.3900, L500.4050 #### [facility] [address] [place], [address] Platelets (Bld) [#/Vol] 384 10*3/uL Normal 150-450 [facility] Comment on above: Performed By: #### L 100.0100, L300.4310, L503.6005, L300.3900, L500.4050 #### [facility] [address] [place], [address] RBC (Bld) [#/Vol] 4.74 10*6/uL Normal 4.6-6.2 [facility] Comment on above: Performed By: #### L 100.0100, L300.4310, L503.6005, L300.3900, L500.4050 #### [facility] [address] [place], [address] RDW SD 39.6 fl Normal 35.1-43.9 [facility] Comment on above: Performed By: #### L 100.0100, L300.4310, L503.6005, L300.3900, L500.4050 #### [facility] [address] [place], [address] WBC (Bld) [#/Vol] 17.9 10*3/uL High 4.4-11.0 [facility] Comment on above: Performed By: #### L 100.0100, L300.4310, L503.6005, L300.3900, L500.4050 #### [facility] [address] [place], [address] Chest PA and Lateralon 10-09 Chest PA and Lateral [facility] Imaging Services [address] [place] [address] Chest PA and Lateral MR#: [id number] Acct: [id number] Name: RIAZ DIOP Rep #: [id number] : 1985 M 39 From: Stephanie Mcfadden PCP: Dr. Drew Mayen MD Status: [facility] ER Study: Chest PA and Lateral Date of Exam: 10/09/25 Exam# [id number] Ordering Dr: Pratima Whitlock MD PROCEDURE: CHEST PA AND LATERAL 10/09/2025 REASON FOR EXAM: FEVER, SOB TECHNIQUE: Procedure Code: RADCXR Modality: DX Procedure: CHEST PA AND LATERAL COMPARISON: 02/13/21 FINDINGS: No focal consolidation. No pleural effusion or pneumothorax. Cardiac silhouette is within normal limits. No acute fractures. RAD/Chest PA and Lateral IMPRESSION: No focal consolidations. Reading Location: [facility] CC: Dr. Drew Mayen MD; Dr. Pratima Whitlock MD Nature Photographer: Signed Normal [facility] Comprehensive Metabolic Prof ilon 10-09-2025 Albumin [Mass/Vol] 4.6 g/dL Normal 3.5-5.0 [facility] Comment on above: Performed By: #### L 100.0100, L300.4310, L503.6005, L300.3900, L500.4050 #### [facility] [address] [place], [address] Albumin/Globulin [Mass ratio] 1.8 {ratio} Normal 0.9-2.4 [facility] Comment on above: Performed By: #### L 100.0100, L300.4310, L503.6005, L300.3900, L500.4050 #### [facility] [address] [place], [address] ALK PHOS 81 U/L Normal 40-129 [facility] Comment on above: Performed By: #### L 100.0100, L300.4310, L503.6005, L300.3900, L500.4050 #### [facility] [address] [place], [address] ALT [Catalytic activity/Vol] 43 U/L Normal <=46 [facility] Comment on above: Performed By: #### L 100.0100, L300.4310, L503.6005, L300.3900, L500.4050 #### [facility] [address] [place], [address] AST [Catalytic activity/Vol] 31 U/L Normal <=37 [facility] Comment on above: Performed By: #### L 100.0100, L300.4310, L503.6005, L300.3900, L500.4050 #### [facility] [address] [place], [address] Bilirubin [Mass/Vol] 0.94 mg/dL Normal 0.00-1.30 [facility] Comment on above: Performed By: #### L 100.0100, L300.4310, L503.6005, L300.3900, L500.4050 #### [facility] [address] [place], [address] BUN/CRE 11.9 RATIO Normal 10-20 [facility] Comment on above: Performed By: #### L 100.0100, L300.4310, L503.6005, L300.3900, L500.4050 #### [facility] [address] [place], [address] Calcium [Mass/Vol] 9.8 mg/dL Normal 7.6-11.0 [facility] Comment on above: Performed By: #### L 100.0100, L300.4310, L503.6005, L300.3900, L500.4050 #### [facility] [address] [place], [address] Chloride [Moles/Vol] 103 mmol/L Normal 98-108 [facility] Comment on above: Performed By: #### L 100.0100, L300.4310, L503.6005, L300.3900, L500.4050 #### [facility] [address] [place], [address] CO2 [Moles/Vol] 20.8 mmol/L Low 21.0-32.0 [facility] Comment on above: Performed By: #### L 100.0100, L300.4310, L503.6005, L300.3900, L500.4050 #### [facility] [address] [place], [address] Creatinine [Mass/Vol] 1.08 mg/dL Normal 0.70-1.20 [facility] Comment on above: Performed By: #### L 100.0100, L300.4310, L503.6005, L300.3900, L500.4050 #### [facility] [address] [place], [address] ECRCL 145.15 ml/min Normal 50-250 [facility] Comment on above: Performed By: #### L 100.0100, L300.4310, L503.6005, L300.3900, L500.4050 #### [facility] [address] [place], [address] GAP 15 Normal 5-15 [facility] Comment on above: Performed By: #### L 100.0100, L300.4310, L503.6005, L300.3900, L500.4050 #### [facility] [address] [place], [address] GFR/1.73 sq M.predicted among non-blacks MDRD (S/P/Bld) [Vol rate/Area] 90 mL/min/{1.73_m2} Normal >60 [facility] Comment on above: Result Comment: mL/m in/1.73m2 CKD-EPI Creatinine Equation (2020) Performed By: #### L 100.0100, L300.4310, L503.6005, L300.3900, L500.4050 #### [facility] [address] [place], [address] Globulin (S) [Mass/Vol] 2.6 g/dL Normal 2.2-4.2 [facility] Comment on above: Performed By: #### L 100.0100, L300.4310, L503.6005, L300.3900, L500.4050 #### [facility] [address] [place], [address] Glucose [Mass/Vol] 121 mg/dL High 70-99 [facility] Comment on above: Performed By: #### L 100.0100, L300.4310, L503.6005, L300.3900, L500.4050 #### [facility] [address] [place], [address] Potassium [Moles/Vol] 3.7 mmol/L Normal 3.3-5.1 [facility] Comment on above: Performed By: #### L 100.0100, L300.4310, L503.6005, L300.3900, L500.4050 #### [facility] [address] [place], [address] Sodium [Moles/Vol] 139 mmol/L Normal 133-145 [facility] Comment on above: Performed By: #### L 100.0100, L300.4310, L503.6005, L300.3900, L500.4050 #### [facility] [address] [place], [address] T PROT 7.2 g/dL Normal 5.9-8.4 [facility] Comment on above: Performed By: #### L 100.0100, L300.4310, L503.6005, L300.3900, L500.4050 #### [facility] [address] [place], [address] Urea nitrogen [Mass/Vol] 13 mg/dL Normal 4-19 [facility] Comment on above: Performed By: #### L 100.0100, L300.4310, L503.6005, L300.3900, L500.4050 #### [facility] [address] [place], [address] Emergency Department Summary on 10-09-2025 Emergency Department Summary [facility] Medical Records Department [address] [place] [address] Emergency Department Summary 10/09/25 MR#: [id number] Acct: [id number] Name: RIAZ DIOP Rep #: [id number] : 1985 39 From: Pratima Whitlock MD PCP: Dr. Drew Mayen MD Status:[facility]M [facility] Pratima Whitlock MD on 10/10/25 at 0125 EKG shows sinus tachycardia at a rate of 122 with no ischemic changes. No dysrhythmia. 10/10/25 0125 Cosigner Signature (if applicable): cc: Dr. Drew Mayen MD * Signed HPI History of Present Illness Chief Complaint: Cellulitis Narrative Narrative: Patient is a 39-year-old male presenting to the emergency department for concern of right lower extremity cellulitis. Patient has a past medical history of cellulitis, hypertension, asthma. Patient states that today after he ate lunch he developed a low-grade fever at home with nausea and multiple episodes of nonbloody, nonbilious emesis. States that he had a stomachache. He denies any chest pain or shortness of breath. He reports that this happened twice in the past where he initially had a fever and nausea and vomiting and then developed right lower extremity cellulitis. States he did have a past surgery to remove skin cancer on the bottom of his right foot and since then has had issues with it. Denies any history of diabetes, chronic steroid use, immunosuppression, IV drug use. He is endorsing some right lower leg pain, denies any trauma or injury to the leg. [facility] Medical History Screening for prostate cancer Dermatitis Localized skin mass, lump, or swelling [...] mg PO DAILY ALLERGIES 02/13/21 Unknown History Allergy/AdvReac Type Severity Reaction Status Date / Time shellfish derived Allergy Severe Nausea/Vom/ Verified 10/09/25 19:05 Diarrhea Family History Mother Asthma Cancer basal cell Father No problems noted. Surgical History History of umbilical hernia repair [...] per week ROS ROS ED ROS Narrative see HPI EXAM Physical Exam Narrative Exam Narrative: Vital signs: Reviewed General: Alert and orientedx3. No acute distress HEENT: Head is normocephalic and atraumatic, sinuses nontender, pupils equal round and reactive. Nares are patent. Oropharynx and throat exams normal. Neck: Supple without lymphadenopathy nontender Cardiovascular: Regular rate and rhythm, no murmurs. No rubs or gallops. Normal S1 and S2. DP and PT pulses intact bilaterally. Respiratory: Clear to auscultation bilaterally. No wheezes, rales, rhonchi Abdominal: Soft and nontender. Normal bowel sounds. No guarding or rebound. Nonsurgical abdomen Extremities: Slight asymmetric swelling to the right calf compared to the left. Mild tenderness to palpation of the calf. No bruising. Normal range of motion. Normal sensation. Skin: Small scattered erythema to the right anterior martinez and calf. Does not extend above the knee. No induration, fluctuance or drainage. The rest of the physical exam is unremarkable Const Vital Signs: 10/09/25 19:02 10/09/25 19:05 Temperature 100.5 F H 100.5 F H Temperature Source Oral Oral Pulse Rate 138 H 138 H Respiratory Rate 28 H 28 H Blood Pressure 128/63 H 128/63 H Blood Pressure Mean 84 84 Pulse Ox 100 100 MDM MDM MDM Narrative Medical decision making narrative: Patient is a 39-year-old male presenting to the emergency department for concern of possible cellulitis. Patient was seen and examined. Patient arrives tachycardic, tachypneic and febrile. Saturating at percent on room air. Given the patient's history of celluli (more content not included)... Normal [facility] H AND P Exam - [facility] 10-09-2025 H&P Exam - Hospitalist [facility] Medical Records Department [address] [place] [address] H P Exam - Hospitalist 10/09/25 2254 MR#: [id number] Acct: [id number] Name: RIAZ DIOP Rep #: [id number] : 1985 39 From: Suzi Castaneda MD PCP: Dr. Drew Mayen MD Status:REG ER Location: ED HPI - General General Date of Admission: 10/09/25 Date of Service: 10/09/25 Chief Complaint: F/C, N,V, RLE redness. 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 He denies any recent lesions or bites. Workup in the ED included T100.5, heart rate 138, BP 120/63, respiratory rate 28, 100% on room air with most recent repeat vitals T100 oral, heart rate 120, BP 137/61, respiratory rate 14, 97% on room air, CBC with WBC 17.9, hemoglobin 15, platelets 324 with left shift and lymphopenia, coags with PT 15, PTT 23.5, INR 1.2, CMP with carbon oxide 20.8, BUN/creatinine 13/1.08, GFR 90, glucose 121, lactic acid 2.8, urinalysis not marked appearing, CT abdomen and pelvis with IV contrast only with mildly prominent left iliac and inguinal lymph nodes with adjacent stranding suggestive of acute lymphadenitis, no evidence of any bowel inflammation, perforation or obstruction, 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 In the ED patient ministered 1 L normal saline, Tylenol 1000 mg p.o. x 1, Zofran 4 mg IV x 1, IV vancomycin 2000 mg x 1, IV Zosyn 3.375 g IV x 1. PFSH Medical History Screening for prostate cancer Dermatitis Localized skin mass, lump, or swelling [...] mg PO DAILY ALLERGIES 02/13/21 Unknown History Allergy/AdvReac Type Severity Reaction Status Date / Time shellfish derived Allergy Severe Nausea/Vom/ Verified 10/09/25 19:05 Diarrhea Family History Mother Asthma Cancer basal cell Father No problems noted. Surgical History History of umbilical hernia repair [...] nose or sore throat. SKIN: + RLE redness/not circumferential but random spots, warm to touch. CARDIOVASCULAR: No chest pain, chest pressure or chest discomfort, palpitations, edema, orthopnea, syncopal events. RESPIRATORY: No shortness of breath, cough or sputum, wheezing, hemoptysis. GASTROINTESTINAL: + anorexia, nausea, vomiting, No diarrhea, abdominal pain, melena, BRBPR. GENITOURINARY: No dysuria, frequency, urgency or retention. NEUROLOGICAL: No headache, dizziness, syncope, paralysis, ataxia, numbness or tingling in the extremities, focal weakness, change in bowel or bladder control, seizure. MUSCULOSKELETAL: + muscle, back pain, joint pain or stiffness. HEMATOLOGIC: + Hx prior anemia. No marked history of easy bleeding or bruising. LYMPHATICS: No enlarged nodes. No history of splenectomy. (more content not included)... Normal [facility] Lactic Acidon 10-09-2025 Lactate [Moles/Vol] 1.6 mmol/L Normal 0.0-2.0 [place] Comment on above: Order Comment: N Performed By: #### L 503.6005 ####[facility] [address] [place], [address] Lactate [Moles/Vol] 2.8 mmol/L Invalid Interpretation Code 0.0-2.0 [facility] Comment on above: Order Comment: Y Result Comment: Crit ical Result(s) Called [facility] at: 2040 by: JOSEPHINE??Results read back by same. Performed By: #### L 100.0100, L300.4310, L503.6005, L300.3900, L500.4050 #### [facility] [address] [place], [address] M100.678on 10-09-2025 M100.678 Pending SARS-CoV-2 (COVID 19) Negative INFLUENZA A Negative INFLUENZA B Negative RSV PCR Negative Normal [facility] Comment on above: Performed By: #### L 500.2500, L100.0100 #### [facility] [address] [place], [address] Partial Thromboplast Timeon 10-09-2025 aPTT Coag (Bld) [Time] 23.5 s Low 24.1-36.2 [facility] Comment on above: Performed By: #### L 100.0100, L300.4310, L503.6005, L300.3900, L500.4050 #### [facility] [address] [place], [address] Prothrombin Time w/INRon INR Coag (PPP) [Relative time] 1.2 {INR} Normal [facility] Comment on above: Performed By: #### L 100.0100, L300.4310, L503.6005, L300.3900, L500.4050 #### [facility] [address] [place], [address] PT Coag (PPP) [Time] 15.0 s High 11.7-14.9 [facility] Comment on above: Performed By: #### L 100.0100, L300.4310, L503.6005, L300.3900, L500.4050 #### [facility] [address] [place], [address] Urinalysis, Completeon 10-09 WBC 0-5 SEEN Normal 0-5 [facility] Comment on above: Order Comment: CLEAN CATCH Performed By: #### L 500.2500, L100.0100 #### [facility] [address] [place], [address] BACTERIA 1+ /hpf Normal None Seen [facility] Comment on above: Order Comment: CLEAN CATCH Performed By: #### L 500.2500, L100.0100 #### [facility] [address] [place], [address] EPI,SQUAMOUS 0 SEEN Normal 0-5 [facility] Comment on above: Order Comment: CLEAN CATCH Performed By: #### L 500.2500, L100.0100 #### [facility] [address] [place], [address] Mucus Ql (Urine sed) 0 SEEN Normal [facility] Comment on above: Order Comment: CLEAN CATCH Performed By: #### L 500.2500, L100.0100 #### [facility] [address] [place], [address] RBC 0 SEEN Normal 0-5 [facility] Comment on above: Order Comment: CLEAN CATCH Performed By: #### L 500.2500, L100.0100 #### [facility] [address] [place], [address] Venous Duplex Imag/Limited/U nion 10-09-2025 Venous Duplex Imag/Limited/Uni [facility] Imaging Services [address] [place] [address] Venous Duplex Imag/Limited/Uni MR#: [id number] Acct: [id number] Name: RIAZ DIOP Rep #: [id number] : 1985 M 39 From: Stephanie Mcfadden PCP: Dr. Drew Mayen MD Status: [facility] Study: Venous Duplex Imag/Limited/Uni Date of Exam: 12/09/24 Exam# [id number] Ordering Dr: Pratima Whitlock MD PROCEDURE: VENOUS DUPLEX IMAG/LIMITED/UNI 10/09/2025 REASON FOR EXAM: Right lower extremity swelling. TECHNIQUE: Procedure Code: USVDUL Modality: US Procedure: VENOUS DUPLEX IMAG/LIMITED/UNI FINDINGS: There is no intraluminal echogenicity to suggest the presence of a deep venous thrombosis. Appropriate respiratory variation, augmentation and venous compression is noted. US/Venous Duplex Imag/Limited/Uni IMPRESSION: No acute occlusive deep vein thrombosis. Reading Location: [facility] CC: Dr. Drew Mayen MD; Dr. Pratima Whitlock MD Nature Photographer: Signed Normal [facility] Internal Medicine Office Vis sherry 07-11-2025 Internal Medicine Office Visit [facility] [address] [place] [address] [place] [address] OFFICE VISIT Date of Service: 07/11/25 MR#: [id number] Acct: [id number] Name: RIAZ DIOP Rep #: [id number] : 1985 Provider: Dr. Drew mitchell MD Age/Sex: 39/M Location: [facility] Status: Signed Intake Vital Signs 05/09/25 14:31 [...] M FU Chief Complaint: 2 M FU [employer] Operator Required: No Accompanied by: Self Is patient [...] taking medication at this time for BP [facility] Medical History Dermatitis Localized skin mass, lump, [...] Light sensiti (more content not included)... Normal [facility] Internal Medicine Office Vis sherry 05-09-2025 Internal Medicine Office Visit [facility] [address] [place] [address] [place] [address] OFFICE VISIT Date of Service: 05/09/25 MR#: [id number] Acct: [id number] Name: RIAZ DIOP Rep #: [id number] : 1985 Provider: Dr. Drew mitchell MD Age/Sex: 39/M Location: [facility] Status: Signed Intake Vital Signs 02/07/25 13:41 [...] his blood pressures at home [facility] Medical History (Updated 05/09/25 @ [...] Neuro Neuro (more content not included)... Normal [facility] Internal Medicine Office Vis iton 02-07-2025 Internal Medicine Office Visit [facility] [address] [place] [address] [place] [address] OFFICE VISIT Date of Service: 02/07/25 MR#: [id number] Acct: [id number] Name: RIAZ DIOP Rep #: [id number] : 1985 Provider: BO Carter Age/Sex: 39/M Location: [facility] Status: Signed Intake Vital Signs 06/28/24 09:40 [...] air Intake Visit Reasons: acute -possible cellulitis [employer] Logging Operator Required: No Is patient in pain?: No [...] headache. Needs both meds refilled. [facility] Medical History Localized skin mass, [...] shortness of (more content not included)... Normal [facility] Absolute lymphocyte countOrd ered By: Armond Guerrero on 01-31-2025 Lymphocytes Auto (Unsp spec) [#/Vol] 2.14 10*3/uL 0.83-4.51 [facility] Absolute neutrophil countOrd ered By: Armond Guerrero on 01-31-2025 Neutrophils (Bld) [#/Vol] 5.4 10*3/uL 2.0-7.7 [facility] Anion gap in Serum or Plasma Ordered By: Armond Guerrero on 01-31-2025 Anion gap [Moles/Vol] 14 mmol/L 5-15 [facility] Automated lymphocyte count a s percentage of total leukocytesOrdered By: Armond Guerrero on 01-31-2025 Lymphocytes/100 WBC Auto (Unsp spec) 25.8 % - [facility] BUN/creatinine ratioOrdered By: Armond Guerrero on 01-31-2025 Urea nitrogen/Creatinine [Mass ratio] 10.6 mg/mg 10- [facility] Basic Metabolic Profile (BMP )on 01-31-2025 BUN/CRE 10.6 RATIO Normal - [facility] Comment on above: Performed By: #### L 500.2500, L100.0100 #### [facility] [address] [place], [address] Calcium [Mass/Vol] 9.5 mg/dL Normal 7.6-11.0 [facility] Comment on above: Performed By: #### L 500.2500, L100.0100 #### [facility] [address] [place], [address] Chloride [Moles/Vol] 101 mmol/L Normal 98-108 [facility] Comment on above: Performed By: #### L 500.2500, L100.0100 #### [facility] [address] [place], [address] CO2 [Moles/Vol] 21.4 mmol/L Normal 21.0-32.0 [facility] Comment on above: Performed By: #### L 500.2500, L100.0100 #### [facility] [address] [place], [address] Creatinine [Mass/Vol] 1.13 mg/dL Normal 0.70-1.20 [facility] Comment on above: Performed By: #### L 500.2500, L100.0100 #### [facility] [address] [place], [address] ECRCL 136.73 ml/min Normal 50-250 [facility] Comment on above: Performed By: #### L 500.2500, L100.0100 #### [facility] [address] [place], [address] GAP 14 Normal 5-15 [facility] Comment on above: Performed By: #### L 500.2500, L100.0100 #### [facility] [address] [place], [address] GFR/1.73 sq M.predicted among non-blacks MDRD (S/P/Bld) [Vol rate/Area] 85 mL/min/{1.73_m2} Normal >60 [facility] Comment on above: Result Comment: mL/m in/1.73m2 CKD-EPI Creatinine Equation (2020) Performed By: #### L 500.2500, L100.0100 #### [facility] [address] [place], [address] Glucose [Mass/Vol] 99 mg/dL Normal 70-99 [facility] Comment on above: Performed By: #### L 500.2500, L100.0100 #### [facility] [address] [place], [address] Potassium [Moles/Vol] 3.6 mmol/L Normal 3.3-5.1 [facility] Comment on above: Performed By: #### L 500.2500, L100.0100 #### [facility] [address] [place], [address] Sodium [Moles/Vol] 137 mmol/L Normal 133-145 [facility] Comment on above: Performed By: #### L 500.2500, L100.0100 #### [facility] [address] [place], [address] Urea nitrogen [Mass/Vol] 12 mg/dL Normal 4-19 [facility] Comment on above: Performed By: #### L 500.2500, L100.0100 #### [facility] [address] [place], [address] Basophil percentageOrdered B y: Armond Guerrero on 01-31-2024 Basophils/100 WBC (Bld) 1.1 % High 0-1 [facility] CBC W/Diff, Automatedon Absolute Lymph 2.14 X10 3/uL Normal 0.83-4.51 [facility] Comment on above: Performed By: #### L 500.2500, L100.0100 #### [facility] [address] [place], [address] Absolute Neut 5.4 X10 3/uL Normal 2.0-7.7 [facility] Comment on above: Performed By: #### L 500.2500, L100.0100 #### [facility] [address] [place], [address] Basophils/100 WBC (Bld) 1.1 % High 0-1 [facility] Comment on above: Performed By: #### L 500.2500, L100.0100 #### [facility] [address] [place], [address] Eosinophils/100 WBC (Bld) 2.1 % Normal 0-5 [facility] Comment on above: Performed By: #### L 500.2500, L100.0100 #### [facility] [address] [place], [address] Erythrocyte distribution width (RBC) [Ratio] 12.2 % Normal 11.6-14.6 [facility] Comment on above: Performed By: #### L 500.2500, L100.0100 #### [facility] [address] [place], [address] Hematocrit (Bld) [Volume fraction] 45.5 % Normal 40-54 [facility] Comment on above: Performed By: #### L 500.2500, L100.0100 #### [facility] [address] [place], [address] Hemoglobin (Bld) [Mass/Vol] 16.2 g/dL Normal 13.0-16.5 [facility] Comment on above: Performed By: #### L 500.2500, L100.0100 #### [facility] [address] [place], [address] IG% 0.100 Normal 0.0-0.9 [facility] Comment on above: Result Comment: IG% - Immature Granulocytes (promyelocytes, myelocytes and metamyelocytes) > 1% indicates that a LEFT SHIFT is Present. Performed By: #### L 500.2500, L100.0100 #### [facility] [address] [place], [address] Lymphocytes/100 WBC (Bld) 25.8 % Normal 19-41 [facility] Comment on above: Performed By: #### L 500.2500, L100.0100 #### [facility] [address] [place], [address] MCH (RBC) [Entitic mass] 31.3 pg Normal 27.0-32.0 [facility] Comment on above: Performed By: #### L 500.2500, L100.0100 #### [facility] [address] [place], [address] MCHC (RBC) [Mass/Vol] 35.6 g/dL Normal 32-36 [facility] Comment on above: Performed By: #### L 500.2500, L100.0100 #### [facility] [address] [place], [address] MCV (RBC) [Entitic vol] 87.8 fL Normal 80-94 [facility] Comment on above: Performed By: #### L 500.2500, L100.0100 #### [facility] [address] [place], [address] Monocytes/100 WBC (Bld) 5.4 % Normal 0-10 [facility] Comment on above: Performed By: #### L 500.2500, L100.0100 #### [facility] [address] [place], [address] Neutrophils/100 WBC (Bld) 65.5 % Normal 47-70 [facility] Comment on above: Performed By: #### L 500.2500, L100.0100 #### [facility] [address] [place], [address] Nucleated RBC (Bld) [#/Vol] 0 10*3/uL Normal 0-5 [facility] Comment on above: Performed By: #### L 500.2500, L100.0100 #### [facility] [address] [place], [address] Platelet mean volume (Bld) [Entitic vol] 10.0 fL Normal 6.2-12.0 [facility] Comment on above: Performed By: #### L 500.2500, L100.0100 #### [facility] [address] [place], [address] Platelets (Bld) [#/Vol] 455 10*3/uL High 150-450 [facility] Comment on above: Performed By: #### L 500.2500, L100.0100 #### [facility] [address] [place], [address] RBC (Bld) [#/Vol] 5.18 10*6/uL Normal 4.6-6.2 [place] Comment on above: Performed By: #### L 500.2500, L100.0100 #### [facility] [address] [place], [address] RDW SD 39.1 fl Normal 35.1-43.9 [facility] Comment on above: Performed By: #### L 500.2500, L100.0100 #### [facility] [address] [place], [address] WBC (Bld) [#/Vol] 8.3 10*3/uL Normal 4.4-11.0 [facility] Comment on above: Performed By: #### L 500.2500, L100.0100 #### [facility] [address] [place], [place], [address] Carbon dioxide, total [Moles /volume] in Central venous bloodOrdered By: Armond Guerrero on 01-31-2025 CO2 [Moles/Vol] 21.4 mmol/L 21.0-32.0 [facility] Chloride assayOrdered By: Dago Guerrero on 01-31-2025 Chloride [Moles/Vol] 101 mmol/L 98-108 [facility] Emergency Department Summary on 01-31-2025 Emergency Department Summary [facility] Medical Records Department [address] [place] [address] Emergency Department Summary 01/31/25 MR#: [id number] Acct: [id number] Name: RIAZ DIOP Rep #: [id number] : 1985 39 From: Ruiz Schwartz MD [...] the steroids written. Follow-up with his doctor. 01/31/25 348 Cosigner Signature (if applicable): cc: Dr. Drew [...] similar symptoms: Yes Recent Illness/Hospitalization: No PFSH PFS Medical History Localized skin mass, lump, or [...] and distress. H EENT exam she is uadrey (more content not included)... Normal [facility] Eosinophil percentageOrdered By: Armond Guerrero on 01-31-2025 Eosinophils/100 WBC (Bld) 2.1 % 0-5 [facility] Erythrocyte distribution wid th ratioOrdered By: Armond Guerrero on 01-31-2025 Erythrocyte distribution width (RBC) [Ratio] 12.2 % 11.6-14.6 [facility] Erythrocyte distribution wid th standard deviationOrdered By: Armond Guerrero on 01-31-2025 Erythrocyte distribution width (RBC) [Ratio] 39.1 fl 35.1-43.9 [facility] Glomerular filtration rate ( GFR) estimation/1.73 sq m using serum, plasma, or whole bOrdered By: Armond Guerrero on 01-31-2025 GFR/1.73 sq M.predicted among non-blacks MDRD (S/P/Bld) [Vol rate/Area] 85 mL/min/{1.73_m2} >60 [facility] Comment on above: mL/min/1.73m2 CKD-EP I Creatinine Equation (2020) Hematocrit Auto (Bld) [Volum e fraction]Ordered By: Armond Guerrero on 01-31-2025 Hematocrit (Bld) [Volume fraction] 45.5 % 40-54 [facility] Hemoglobin measurementOrdere d By: Armond Guerrero on 01-31-2025 Hemoglobin (Bld) [Mass/Vol] 16.2 g/dL 13.0-16.5 [facility] Immature granulocytes/100 WB C Auto (Bld)Ordered By: Armond Guerrero on 01-31-2025 Immature granulocytes/100 WBC (Bld) 0.100 % 0.0-0.9 [facility] Comment on above: IG% - Immature Granu locytes (promyelocytes, myelocytes and metamyelocytes) > 1% indicates that a LEFT SHIFT is Present. MCV (mean corpuscular volume ) determinationOrdered By: Armond Guerrero on 01-31-2025 MCV (RBC) [Entitic vol] 87.8 fL 80-94 [facility] Mean corpuscular hemoglobin (MCH) determinationOrdered By: Armond Guerrero on 01-31-2025 MCH (RBC) [Entitic mass] 31.3 pg 27.0-32.0 [facility] Mean corpuscular hemoglobin concentration (MCHC) determinationOrdered By: Armond Guerrero on 01-31-2025 MCHC (RBC) [Mass/Vol] 35.6 g/dL 32-36 [facility] Mean platelet volume determi nationOrdered By: Armond Guerrero on 01-31-2025 Platelet mean volume (Bld) [Entitic vol] 10.0 fL 6.2-12.0 [facility] Monocyte percentageOrdered B y: Armond Guerrero on 01-31-2025 Monocytes/100 WBC (Bld) 5.4 % 0-10 [facility] Neutrophil percentageOrdered By: Armond Guerrero on 01-31-2025 Neutrophils/100 WBC (Bld) 65.5 % 47-70 [facility] Nucleated red blood cell per centageOrdered By: Armond Guerrero on 01-31-2025 Nucleated RBC/100 WBC (Bld) [Ratio] 0 % 0-5 [facility] Platelet countOrdered By: Dago Guerrero on 01-31-2025 Platelets (Bld) [#/Vol] 455 10*3/uL High 150-450 [facility] Potassium measurement (mass/ volume)Ordered By: Armond Guerrero on 01-31-2025 Potassium (Unsp spec) [Mass/Vol] 3.6 mmol/L 3.3-5.1 [facility] RBC Auto (Bld) [#/Vol]Ordere d By: Armond Guerrero on 01-31-2025 RBC (Bld) [#/Vol] 5.18 10*6/uL 4.6-6.2 [place] Serum creatinine measurement (mass/volume)Ordered By: Armond Guerrero on 01-31-2025 Creatinine [Mass/Vol] 1.13 mg/dL 0.70-1.20 [facility] Serum glucose measurement (m ass/volume)Ordered By: Armond Guerrero on 01-31-2025 Glucose [Mass/Vol] 99 mg/dL 70-99 [facility] Serum or plasma calcium ani urement (mass/volume)Ordered By: Armond Guerrero on 01-31-2025 Calcium [Mass/Vol] 9.5 mg/dL 7.6-11.0 [facility] Serum or plasma urea nitroge n measurement (mass/volume)Ordered By: Armond Guerrero on 01-31-2025 Urea nitrogen [Mass/Vol] 12 mg/dL 4-19 [facility] Sodium levelOrdered By: Armond Guerrero on 01-31-2025 Sodium [Moles/Vol] 137 mmol/L 133-145 [facility] White blood cell (WBC) count Ordered By: Armond Guerrero on 01-31-2025 WBC (Bld) [#/Vol] 8.3 10*3/uL 4.4-11.0 [facility] CNOVon 05-19-2024 CNOV Office Visit (UCWSTR ) RIAZ DIOP ([id number]) 1985 M Date Time Provider Department 05/19/24 9:30 AM VINNIE HERNANDEZ [facility] During your visit today, we recorded the [...] Date APPENDECTOMY INGUINAL HERNIA REPAIR HX Bilateral infant LASIK REMOVAL GALLBLADDER MEDICATIONS: Current Outpatient Medications [...] Status:Closed by VINNIE HERNANDEZ on 05/19/24 Normal [facility] Absolute lymphocyte countOrd ered By: Drew Mayen on 01-12-2024 Lymphocytes Auto (Unsp spec) [#/Vol] 1.62 10*3/uL 0.83-4.51 [facility] Automated lymphocyte count a s percentage of total leukocytesOrdered By: Drew Mayen on 01-12-2024 Lymphocytes/100 WBC Auto (Unsp spec) 25.2 % 19-41 [facility] Basophil percentageOrdered B y: Drew Mayen on 01-12-2024 Basophils/100 WBC (Bld) 0.8 % 0-1 [facility] Chloride [Moles/Vol] 110 mmol/L 98-107 [facility] Eosinophils/100 WBC (Bld) 3.1 % 0-5 [facility] Glucose [Mass/Vol] 112 mg/dL 74-106 [facility] Comment on above: Fasting Glucose resu lt from 100 to 125 mg/dL suggests IMPAIRED HOMEOSTASIS per A.D.A. criteria. Hemoglobin (Bld) [Mass/Vol] 14.0 g/dL 13.0-16.5 [facility] Monocytes/100 WBC (Bld) 5.8 % 0-10 [facility] Neutrophils (Bld) [#/Vol] 4.2 10*3/uL 2.0-7.7 [facility] Neutrophils/100 WBC (Bld) 64.5 % 47-70 [facility] Potassium [Moles/Vol] 4.1 mmol/L 3.5-5.1 [facility] Sodium [Moles/Vol] 144 mmol/L 136-145 [facility] WBC (Bld) [#/Vol] 6.4 10*3/uL 4.4-11.0 [facility] Determination of erythrocyte mean corpuscular volume (MCV)Ordered By: Drew Mayen on 01-12-2024 MCV (RBC) [Entitic vol] 90.9 fL 80-94 [facility] Erythrocyte distribution wid th ratioOrdered By: marleniwest suffieldmirella Mayen on 01-12-2024 Erythrocyte distribution width (RBC) [Ratio] 12.5 % 11.6-14.6 [facility] Erythrocyte distribution wid th standard deviationOrdered By: Drew Mayen on 01-12-2024 Erythrocyte distribution width (RBC) [Entitic vol] 41.3 fL 35.1-43.9 [facility] Hematocrit Auto (Bld) [Volum e fraction]Ordered By: Drew Mayen on 01-12-2024 Hematocrit (Bld) [Volume fraction] 41.0 % 40-54 [facility] Immature granulocytes/100 WB C Auto (Bld)Ordered By: Drew Mayen on 01-12-2024 Immature granulocytes/100 WBC (Bld) 0.600 % 0.0-0.9 [facility] Comment on above: IG% - Immature Granu locytes (promyelocytes, myelocytes and metamyelocytes) > 1% indicates that a LEFT SHIFT is Present. Laboratory - Chemistry and C hemistry - challengeOrdered By: Drew Mayen on 01-12-2024 CO2 [Moles/Vol] 27.0 mmol/L 21.0-32.0 [facility] Urea nitrogen/Creatinine [Mass ratio] 7.3 mg/mg 10-20 [facility] - Hematology and Cell countsOrdered By: Drew Mayen on 01-12-2024 MCH (RBC) [Entitic mass] 31.0 pg 27.0-32.0 [facility] MCHC (RBC) [Mass/Vol] 34.1 g/dL 32-36 [facility] Nucleated RBC/100 WBC (Bld) [Ratio] 0 % 0-5 [facility] Platelet mean volume (Bld) [Entitic vol] 10.6 fL 6.2-12.0 [facility] Platelets (Bld) [#/Vol] 362 10*3/uL 150-450 [facility] No Panel InformationOrdered By: Drew Mayen on 01-12-2024 Estimated GFR (MDRD) Amer 97 mL/min >60 [facility] Comment on above: GFR Calc Estimated GFR (MDRD) Non-Af Amer 80 mL/min >60 [facility] Comment on above: Non- GFR Calc RBC Auto (Bld) [#/Vol]Ordere d By: Drew Mayen on 01-12-2024 RBC (Bld) [#/Vol] 4.51 10*6/uL 4.6-6.2 [facility] Serum or plasma calcium ani urement (mass/volume)Ordered By: Drew Mayen on 01-12-2024 Calcium [Mass/Vol] 8.9 mg/dL 8.5-10.1 [facility] Serum or plasma creatinine m easurement (mass/volume)Ordered By: Drew Mayen on 01-12-2024 Creatinine [Mass/Vol] 1.09 mg/dL 0.70-1.30 [facility] Comment on above: The validity of the calculated GFR & GFRAA in patients over 70 years has not been determined. Clinical correlation is essential. Serum or plasma urea nitroge n measurement (mass/volume)Ordered By: Drew Mayen on 01-12-2024 Urea nitrogen [Mass/Vol] 8 mg/dL 7-18 [facility] Thin prep Papanicolaou smear with manual screeningOrdered By: Drew Mayen on 01-12-2024 Thin prep Papanicolaou smear with manual screening 7 -15 [facility] No Panel InformationOrdered By: Trinidad Nicolas on 12-06-2023 Nasal Screen MRSA/MSSA [facility] Nasal Screen MRSA/MSSA [facility] Absolute lymphocyte countOrd ered By: Joann Cheng on 11-17-2023 Lymphocytes Auto (Unsp spec) [#/Vol] 1.11 10*3/uL 0.83-4.51 [facility] Basophil percentageOrdered B y: Joann Cheng on 11-17-2023 Basophils/100 WBC (Bld) 0.3 % 0-1 [facility] Chloride [Moles/Vol] 109 mmol/L 98-107 [facility] Eosinophils/100 WBC (Bld) 0.5 % 0-5 [facility] Glucose [Mass/Vol] 132 mg/dL 74-106 [facility] Comment on above: Fasting Glucose resu lt greater than or equal to 126 mg/dL suggests DIABETES MELLITUS per A.D.A. criteria. Neutrophils (Bld) [#/Vol] 5.6 10*3/uL 2.0-7.7 [facility] Neutrophils/100 WBC (Bld) 76.6 % 47-70 [facility] Potassium [Moles/Vol] 3.9 mmol/L 3.5-5.1 [facility] Sodium [Moles/Vol] 142 mmol/L 136-145 [facility] WBC (Bld) [#/Vol] 7.3 10*3/uL 4.4-11.0 [facility] Blood erythrocytes count (nu mber/volume)Ordered By: Joann Cheng on 11-17-2023 RBC (Bld) [#/Vol] 4.01 10*6/uL 4.6-6.2 [place] Blood hemoglobin measurement (mass/volume)Ordered By: Joann Cheng on 11-17-2023 Hemoglobin (Bld) [Mass/Vol] 12.6 g/dL 13.0-16.5 [facility] Blood lymphocytes/100 leukoc ytesOrdered By: Joann Cheng on 11-17-2023 Lymphocytes/100 WBC (Bld) 15.2 % 19-41 [facility] Blood monocytes/100 leukocyt esOrdered By: Joann Cheng on 11-17-2023 Monocytes/100 WBC (Bld) 7.1 % 0-10 [facility] Blood platelet mean volumeOr dered By: Joann Cheng on 11-17-2023 Platelet mean volume (Bld) [Entitic vol] 10.0 fL 6.2-12.0 [facility] Determination of erythrocyte mean corpuscular volume (MCV)Ordered By: Joann Cheng on 11-17-2023 MCV (RBC) [Entitic vol] 92.8 fL 80-94 [facility] Hematocrit Auto (Bld) [Volum e fraction]Ordered By: Joann Cheng on 11-17-2023 Hematocrit (Bld) [Volume fraction] 37.2 % 40-54 [facility] - Chemistry and C hemistry - challengeOrdered By: Joann Cheng on 11-17-2023 CO2 [Moles/Vol] 26.0 mmol/L 21.0-32.0 [facility] Urea nitrogen/Creatinine [Mass ratio] 8.2 mg/mg 09-17 [facility] - Hematology and Cell countsOrdered By: Joann Cheng on 11-17-2023 Erythrocyte distribution width (RBC) [Entitic vol] 42.5 fL 35.1-43.9 [facility] Erythrocyte distribution width (RBC) [Ratio] 12.5 % 11.6-14.6 [facility] Immature granulocytes/100 WBC (Bld) 0.300 % 0.0-0.9 [facility] Comment on above: IG% - Immature Granu locytes (promyelocytes, myelocytes and metamyelocytes) > 1% indicates that a LEFT SHIFT is Present. MCH (RBC) [Entitic mass] 31.4 pg 27.0-32.0 [facility] Nucleated RBC/100 WBC (Bld) [Ratio] 0 % 0-5 [facility] MCHC Auto (RBC) [Mass/Vol]Or dered By: Joann Cheng on 11-17-2023 MCHC (RBC) [Mass/Vol] 33.9 g/dL 32-36 [facility] No Panel InformationOrdered By: Joann Cheng on 11-17-2023 Estimated Creatinine Clearance Calc 125.48 ml/min [facility] Estimated GFR (MDRD) Amer 110 mL/min >60 [facility] Comment on above: GFR Calc Estimated GFR (MDRD) Non-Af Amer 91 mL/min >60 [facility] Comment on above: Non- GFR Calc Platelets bldOrdered By: Nereyda Cheng on 11-17-2023 Platelets (Bld) [#/Vol] 319 10*3/uL 150-450 [facility] Serum or plasma calcium ani urement (mass/volume)Ordered By: Joann Cheng on 11-17-2023 Calcium [Mass/Vol] 7.6 mg/dL 8.5-10.1 [facility] Serum or plasma creatinine m easurement (mass/volume)Ordered By: Joann Cheng on 11-17-2023 Creatinine [Mass/Vol] 0.98 mg/dL 0.70-1.30 [facility] Comment on above: The validity of the calculated GFR & GFRAA in patients over 70 years has not been determined. Clinical correlation is essential. Serum or plasma urea nitroge n measurement (mass/volume)Ordered By: Joann Cheng on 11-17-2023 Urea nitrogen [Mass/Vol] 8 mg/dL 7-18 [facility] Thin prep Papanicolaou smear with manual screeningOrdered By: Joann Cheng on 11-17-2023 Thin prep Papanicolaou smear with manual screening 7 5-15 [facility] Absolute lymphocyte countOrd ered By: Antonio Ferguson on 11-16-2023 Lymphocytes Auto (Unsp spec) [#/Vol] 1.22 10*3/uL 0.83-4.51 [facility] Basophil percentageOrdered B y: Antonio Ferguson on 11-16-2023 Basophil percentage 0 SEEN /hpf 0-5 [facility] Basophils/100 WBC (Bld) 0.2 % 0-1 [facility] Bilirubin [Mass/Vol] 0.70 mg/dL 0.20-1.00 [facility] Comment on above: For patients on eltr ombopag therapy, use of Dimension [place] TBIL is not recommended. Chloride [Moles/Vol] 108 mmol/L 98-107 [facility] Eosinophils/100 WBC (Bld) 0.1 % 0-5 [facility] Glucose [Mass/Vol] 115 mg/dL 74-106 [facility] Comment on above: Fasting Glucose resu lt from 100 to 125 mg/dL suggests IMPAIRED HOMEOSTASIS per A.D.A. criteria. Neutrophils (Bld) [#/Vol] 11.4 10*3/uL 2.0-7.7 [facility] Neutrophils/100 WBC (Bld) 85.6 % 47-70 [facility] Potassium [Moles/Vol] 3.8 mmol/L 3.5-5.1 [facility] Protein [Mass/Vol] 7.3 g/dL 6.4-8.2 [facility] Sodium [Moles/Vol] 139 mmol/L 136-145 [facility] WBC (Bld) [#/Vol] 13.3 10*3/uL 4.4-11.0 [place] Bilirubin Test strip Ql (U)O rdered By: Antonio Ferugson on 11-16-2023 Bilirubin Ql (U) Negative Negative [facility] Blood erythrocytes count (nu mber/volume)Ordered By: Antonio Ferguson on 11-16-2023 RBC (Bld) [#/Vol] 4.67 10*6/uL 4.6-6.2 [place] Blood hemoglobin measurement (mass/volume)Ordered By: Antonio Ferguson on 11-16-2023 Hemoglobin (Bld) [Mass/Vol] 14.4 g/dL 13.0-16.5 [facility] Blood lymphocytes/100 leukoc ytesOrdered By: Antonio Ferguson on 11-16-2023 Lymphocytes/100 WBC (Bld) 9.2 % 19-41 [facility] Blood monocytes/100 leukocyt esOrdered By: Antonio Ferguson on 11-16-2023 Monocytes/100 WBC (Bld) 4.5 % 0-10 [facility] Blood platelet mean volumeOr dered By: Antonio Ferguson on 11-16-2023 Platelet mean volume (Bld) [Entitic vol] 10.1 fL 6.2-12.0 [facility] Determination of erythrocyte mean corpuscular volume (MCV)Ordered By: Antonio Ferguson on 11-16-2023 MCV (RBC) [Entitic vol] 89.5 fL 80-94 [facility] Hematocrit Auto (Bld) [Volum e fraction]Ordered By: Antonio Ferguson on 11-16-2023 Hematocrit (Bld) [Volume fraction] 41.8 % 40-54 [facility] Ketones Test strip Ql (U)Ord ered By: Antonio Ferguson on 11-16-2023 Ketones Ql (U) Negative Negative [facility] - Chemistry and C hemistry - challengeOrdered By: Antonio Ferguson on 11-16-2023 ALP [Catalytic activity/Vol] 70 U/L 45-117 [facility] ALT [Catalytic activity/Vol] 51 U/L 16-61 [facility] CO2 [Moles/Vol] 26.0 mmol/L 21.0-32.0 [facility] Globulin (S) [Mass/Vol] 3.5 g/dL 2.2-4.2 [facility] Lipase [Catalytic activity/Vol] 28 U/L 13-75 [facility] Comment on above: Please note:LIPASE r evised reference range effective 23. New Lipase methodology. Expected to produce lower values than the previous assay method. NEW Reference Range: 13 - 75 U/L Urea nitrogen/Creatinine [Mass ratio] 9.3 mg/mg 10-20 [facility] - Hematology and Cell countsOrdered By: Antonio Ferguson on 11-16-2023 Erythrocyte distribution width (RBC) [Entitic vol] 39.8 fL 35.1-43.9 [facility] Erythrocyte distribution width (RBC) [Ratio] 12.2 % 11.6-14.6 [facility] Immature granulocytes/100 WBC (Bld) 0.400 % 0.0-0.9 [facility] Comment on above: IG% - Immature Granu locytes (promyelocytes, myelocytes and metamyelocytes) > 1% indicates that a LEFT SHIFT is Present. MCH (RBC) [Entitic mass] 30.8 pg 27.0-32.0 [facility] Nucleated RBC/100 WBC (Bld) [Ratio] 0 % 0-5 [facility] MCHC Auto (RBC) [Mass/Vol]Or dered By: Antonio Ferguson on 11-16-2023 MCHC (RBC) [Mass/Vol] 34.4 g/dL 32-36 [facility] Mucus LM Ql (Urine sed)Order ed By: Antonio Ferguson on 11-16-2023 Mucus Ql (Urine sed) 0 SEEN /hpf [facility] Nitrite Test strip Ql (U)Ord ered By: Antonio Ferguson on 11-16-2023 Nitrite Ql (U) Negative Negative [facility] No Panel InformationOrdered By: Antonio Ferguson on 11-16-2023 Estimated Creatinine Clearance Calc 114.92 ml/min [facility] Estimated GFR (MDRD) Amer 99 mL/min >60 [facility] Comment on above: GFR Calc Estimated GFR (MDRD) Non-Af Amer 82 mL/min >60 [facility] Comment on above: Non- GFR Calc Platelets bldOrdered By: Shreya Ferguson on 11-16-2023 Platelets (Bld) [#/Vol] 367 10*3/uL 150-450 [facility] Protein Test strip Ql (U)Ord ered By: Antonio Ferguson on 11-16-2023 Protein Ql (U) Negative Negative [facility] Serum or plasma albumin ani urement (mass/volume)Ordered By: Antonio Ferguson on 11-16-2023 Albumin [Mass/Vol] 3.8 g/dL 3.2-5.0 [facility] Serum or plasma albumin/glob ulin mass ratioOrdered By: Antonio Ferguson on 11-16-2023 Albumin/Globulin [Mass ratio] 1.1 {ratio} 0.9-2.4 [facility] Serum or plasma calcium ani urement (mass/volume)Ordered By: Antonio Ferguson on 11-16-2023 Calcium [Mass/Vol] 8.9 mg/dL 8.5-10.1 [facility] Serum or plasma creatinine m easurement (mass/volume)Ordered By: Antonio Ferguson on 11-16-2023 Creatinine [Mass/Vol] 1.07 mg/dL 0.70-1.30 [facility] Comment on above: The validity of the calculated GFR & GFRAA in patients over 70 years has not been determined. Clinical correlation is essential. Serum or plasma urea nitroge n measurement (mass/volume)Ordered By: Antonio Ferguson on 11-16-2023 Urea nitrogen [Mass/Vol] 10 mg/dL 7-18 [facility] Squamous epithelial cells de tection in urine sediment by light microscopyOrdered By: Antonio Ferguson on 11-16-2023 Epithelial cells.squamous LM Ql (Urine sed) 0-5 SEEN /hpf 0-5 [facility] Thin prep Papanicolaou smear with manual screeningOrdered By: Antonio Ferguson on 11-16-2023 Thin prep Papanicolaou smear with manual screening 19 U/L 15-37 [facility] Thin prep Papanicolaou smear with manual screening 5 5-15 [facility] Urine blood detectionOrdered By: Antonio Ferguson on 11-16-2023 RBC Ql (U) Negative Negative [facility] RBC Ql (U) 0 SEEN /hpf 0-5 [facility] Urine clarityOrdered By: Shreya Ferguson on 11-16-2023 Clarity (U) Clear Clear [facility] Urine color determinationOrd ered By: Antonio Ferguson on 11-16-2023 Color (U) Straw Yellow [facility] Urine glucose detectionOrder ed By: Antonio Ferguson on 11-16-2023 Glucose Ql (U) Normal mg/dl Normal [facility] Urine leukocyte esterase det ection by dipstickOrdered By: Antonio Ferguson on 11-16-2023 Leukocyte esterase Test strip Ql (U) Negative Negative [facility] Urine pHOrdered By: Antonio gutierrez on 11-16-2023 pH (U) 6.5 [pH] 5.0 - 8.0 [facility] Urine sediment bacteria coun t by microscopy (number/high power field)Ordered By: Antonio Ferguson on 11-16-2023 Bacteria LM.HPF (Urine sed) [#/Area] 0 /[HPF] None Seen [facility] Urine specific gravity measu rementOrdered By: Antonio Ferguson on 11-16-2023 Specific gravity (U) [Rel density] 1.010 1.002-1.03 0 [facility] Urobilinogen Auto test strip Ql (U)Ordered By: Antonio Ferguson on 11-16-2023 Urobilinogen Ql (U) Normal mg/dl Normal [facility] Absolute lymphocyte countOrd ered By: Drew Mayen on 10-11-2023 Lymphocytes Auto (Unsp spec) [#/Vol] 1.67 10*3/uL 0.83-4.51 [facility] Basophil percentageOrdered B y: Drew Mayen on 10-11-2023 Basophils/100 WBC (Bld) 0.7 % 0-1 [facility] Chloride [Moles/Vol] 107 mmol/L 98-107 [facility] Eosinophils/100 WBC (Bld) 1.8 % 0-5 [facility] Glucose [Mass/Vol] 89 mg/dL 74-106 [facility] Neutrophils (Bld) [#/Vol] 3.2 10*3/uL 2.0-7.7 [facility] Neutrophils/100 WBC (Bld) 59.1 % 47-70 [facility] Potassium [Moles/Vol] 4.2 mmol/L 3.5-5.1 [facility] Sodium [Moles/Vol] 141 mmol/L 136-145 [facility] WBC (Bld) [#/Vol] 5.4 10*3/uL 4.4-11.0 [facility] Blood erythrocytes count (nu mber/volume)Ordered By: Drew Mayen on 10-11-2023 RBC (Bld) [#/Vol] 4.80 10*6/uL 4.6-6.2 [place] Blood hemoglobin measurement (mass/volume)Ordered By: Drew Mayen on 10-11-2023 Hemoglobin (Bld) [Mass/Vol] 14.9 g/dL 13.0-16.5 [facility] Blood lymphocytes/100 leukoc ytesOrdered By: Drew Mayen on 10-11-2023 Lymphocytes/100 WBC (Bld) 30.8 % 19-41 [facility] Blood monocytes/100 leukocyt esOrdered By: Drew Mayen on 10-11-2023 Monocytes/100 WBC (Bld) 7.4 % 0-10 [facility] Blood platelet mean volumeOr dered By: Drew Mayen on 10-11-2023 Platelet mean volume (Bld) [Entitic vol] 10.3 fL 6.2-12.0 [facility] Determination of erythrocyte mean corpuscular volume (MCV)Ordered By: Drew Mayen on 10-11-2023 MCV (RBC) [Entitic vol] 91.5 fL 80-94 [facility] Hematocrit Auto (Bld) [Volum e fraction]Ordered By: Drew Mayen on 10-11-2023 Hematocrit (Bld) [Volume fraction] 43.9 % 40-54 [facility] - Chemistry and C hemistry - challengeOrdered By: Drew Mayen on 10-11-2023 CO2 [Moles/Vol] 29.0 mmol/L 21.0-32.0 [facility] Urea nitrogen/Creatinine [Mass ratio] 10.1 mg/mg 10-20 [facility] - Hematology and Cell countsOrdered By: Drew Mayen on 10-11-2023 Erythrocyte distribution width (RBC) [Entitic vol] 40.5 fL 35.1-43.9 [facility] Erythrocyte distribution width (RBC) [Ratio] 12.2 % 11.6-14.6 [facility] Immature granulocytes/100 WBC (Bld) 0.200 % 0.0-0.9 [facility] Comment on above: IG% - Immature Granu locytes (promyelocytes, myelocytes and metamyelocytes) > 1% indicates that a LEFT SHIFT is Present. MCH (RBC) [Entitic mass] 31.0 pg 27.0-32.0 [facility] Nucleated RBC/100 WBC (Bld) [Ratio] 0 % 0-5 [facility] MCHC Auto (RBC) [Mass/Vol]Or dered By: Drew Mayen on 10-11-2023 MCHC (RBC) [Mass/Vol] 33.9 g/dL 32-36 [facility] No Panel InformationOrdered By: Drew Mayen on 10-11-2023 Estimated GFR (MDRD) Amer 97 mL/min >60 [facility] Comment on above: GFR Calc Estimated GFR (MDRD) Non-Af Amer 81 mL/min >60 [facility] Comment on above: Non- GFR Calc Platelets bldOrdered By: Sagar Mayen on 10-11-2023 Platelets (Bld) [#/Vol] 385 10*3/uL 150-450 [facility] Serum or plasma calcium ani urement (mass/volume)Ordered By: Drew Mayen on 10-11-2023 Calcium [Mass/Vol] 9.0 mg/dL 8.5-10.1 [facility] Serum or plasma creatinine m easurement (mass/volume)Ordered By: Drew Mayen on 10-11-2023 Creatinine [Mass/Vol] 1.09 mg/dL 0.70-1.30 [facility] Comment on above: The validity of the calculated GFR & GFRAA in patients over 70 years has not been determined. Clinical correlation is essential. Serum or plasma urea nitroge n measurement (mass/volume)Ordered By: Drew Mayen on 10-11-2023 Urea nitrogen [Mass/Vol] 11 mg/dL 7-18 [facility] Thin prep Papanicolaou smear with manual screeningOrdered By: Drew Mayen on 10-11-2023 Thin prep Papanicolaou smear with manual screening 5 5-15 [facility] Absolute lymphocyte countOrd ered By: Miriam Johnson on 06-01-2023 Lymphocytes Auto (Unsp spec) [#/Vol] 1.50 10*3/uL 0.83-4.51 [facility] Basophil percentageOrdered B y: Miriam Johnson on 06-01-2023 Basophils/100 WBC (Bld) 0.6 % 0-1 [facility] Chloride [Moles/Vol] 113 mmol/L 98-107 [facility] Eosinophils/100 WBC (Bld) 1.6 % 0-5 [facility] Glucose [Mass/Vol] 104 mg/dL 74-106 [facility] Comment on above: Fasting Glucose resu lt from 100 to 125 mg/dL suggests IMPAIRED HOMEOSTASIS per A.D.A. criteria. Neutrophils (Bld) [#/Vol] 4.2 10*3/uL 2.0-7.7 [facility] Neutrophils/100 WBC (Bld) 66.4 % 47-70 [facility] Potassium [Moles/Vol] 3.9 mmol/L 3.5-5.1 [facility] Sodium [Moles/Vol] 142 mmol/L 136-145 [facility] WBC (Bld) [#/Vol] 6.3 10*3/uL 4.4-11.0 [facility] Blood erythrocytes count (nu mber/volume)Ordered By: Miriam Johnson on 06-01-2023 RBC (Bld) [#/Vol] 4.16 10*6/uL 4.6-6.2 [place] Blood hemoglobin measurement (mass/volume)Ordered By: Miriam Johnson on 06-01-2023 Hemoglobin (Bld) [Mass/Vol] 13.2 g/dL 13.0-16.5 [facility] Blood lymphocytes/100 leukoc ytesOrdered By: Miriam Johnson on 06-01-2023 Lymphocytes/100 WBC (Bld) 23.8 % 19-41 [facility] Blood monocytes/100 leukocyt esOrdered By: Miriam Johnson on 06-01-2023 Monocytes/100 WBC (Bld) 7.3 % 0-10 [facility] Blood platelet mean volumeOr dered By: Miriam Johnson on 06-01-2023 Platelet mean volume (Bld) [Entitic vol] 10.4 fL 6.2-12.0 [facility] Determination of erythrocyte mean corpuscular volume (MCV)Ordered By: Miriam Johnson on 06-01-2023 MCV (RBC) [Entitic vol] 92.3 fL 80-94 [facility] Hematocrit Auto (Bld) [Volum e fraction]Ordered By: Miriam Johnson on 06-01-2023 Hematocrit (Bld) [Volume fraction] 38.4 % 40-54 [facility] Laboratory - Chemistry and C hemistry - challengeOrdered By: Miriam Johnson on 06-01-2023 CO2 [Moles/Vol] 27.0 mmol/L 21.0-32.0 [facility] Urea nitrogen/Creatinine [Mass ratio] 6.8 mg/mg 10-20 [facility] Laboratory - Hematology and Cell countsOrdered By: Miriam Johnson on 06-01-2023 Erythrocyte distribution width (RBC) [Entitic vol] 43.5 fL 35.1-43.9 [facility] Erythrocyte distribution width (RBC) [Ratio] 12.8 % 11.6-14.6 [facility] Immature granulocytes/100 WBC (Bld) 0.300 % 0.0-0.9 [facility] Comment on above: IG% - Immature Granu locytes (promyelocytes, myelocytes and metamyelocytes) > 1% indicates that a LEFT SHIFT is Present. MCH (RBC) [Entitic mass] 31.7 pg 27.0-32.0 [facility] Nucleated RBC/100 WBC (Bld) [Ratio] 0 % 0-5 [facility] MCHC Auto (RBC) [Mass/Vol]Or dered By: Miriam Johnson on 06-01-2023 MCHC (RBC) [Mass/Vol] 34.4 g/dL 32-36 [facility] No Panel InformationOrdered By: Miriam Johnson on 06-01-2023 Estimated Creatinine Clearance Calc 120.56 ml/min [facility] Estimated GFR (MDRD) Amer 104 mL/min >60 [facility] Comment on above: GFR Calc Estimated GFR (MDRD) Non-Af Amer 86 mL/min >60 [facility] Comment on above: Non- GFR Calc Platelets bldOrdered By: Joana Johnson on 06-01-2023 Platelets (Bld) [#/Vol] 251 10*3/uL 150-450 [facility] Serum or plasma calcium ani urement (mass/volume)Ordered By: Miriam Johnson on 06-01-2023 Calcium [Mass/Vol] 8.4 mg/dL 8.5-10.1 [facility] Serum or plasma creatinine m easurement (mass/volume)Ordered By: Miriam Johnson on 06-01-2023 Creatinine [Mass/Vol] 1.03 mg/dL 0.70-1.30 [facility] Comment on above: The validity of the calculated GFR & GFRAA in patients over 70 years has not been determined. Clinical correlation is essential. Serum or plasma urea nitroge n measurement (mass/volume)Ordered By: Miriam Johnson on 06-01-2023 Urea nitrogen [Mass/Vol] 7 mg/dL 7-18 [facility] Thin prep Papanicolaou smear with manual screeningOrdered By: Miriam Johnson on 06-01-2023 Thin prep Papanicolaou smear with manual screening 2 5-15 [facility] Vancomycin troughOrdered By: Gatito Chase on 06-01-2023 Vancomycin trough [Mass/Vol] 18.7 ug/mL 5.0-15.0 [facility] Comment on above: VANCOMYCIN STANDARED DRUG THERAPY TROUGH LEVEL: 5.0 - 15.0 mg/L VANCOMYCIN HIGH INTENSITY THERAPY TROUGH LEVEL: 15.0 - 20.0 mg/L High Intensity therapy recommended for serious lifethreatening infections include:- Nqjvrcyjiu-Yrgpkydiyvtx-Ilnzbfvkt (Ventilator/Healtcare Associated)-Sepsis PLEASE CONTACT PHARMACY SERVICES (#[id number]) FOR INTERPRETATIONOF RESULTS. Basophil percentageOrdered B y: Suzi Castaneda on 05-30-2023 Bilirubin [Mass/Vol] 1.30 mg/dL 0.20-1.00 [facility] Comment on above: For patients on eltr ombopag therapy, use of Dimension [place] TBIL is not recommended. Protein [Mass/Vol] 6.7 g/dL 6.4-8.2 [facility] Basophil percentageOrdered B y: Antonio Ferguson on 05-30-2023 Lactate [Moles/Vol] 1.7 mmol/L 0.4-2.0 [place] [facility] - Chemistry and C hemistry - challengeOrdered By: Suzi Castaneda on 05-30-2023 ALP [Catalytic activity/Vol] 60 U/L 45-117 [facility] ALT [Catalytic activity/Vol] 52 U/L 16-61 [facility] Globulin (S) [Mass/Vol] 3.2 g/dL 2.2-4.2 [facility] Serum or plasma albumin ani urement (mass/volume)Ordered By: Suzi Castaneda on 05-30-2023 Albumin [Mass/Vol] 3.5 g/dL 3.2-5.0 [facility] Serum or plasma albumin/glob ulin mass ratioOrdered By: Suzi Tonya on 05-30-2023 Albumin/Globulin [Mass ratio] 1.1 {ratio} 0.9-2.4 [facility] Serum procalcitonin measurem entOrdered By: Suzi Castaneda on 05-30-2023 Procalcitonin [Mass/Vol] 1.28 ng/mL 0.00-0.09 [facility] Comment on above: A procalcitonin (PCT ) [...] Papanicolaou smear with manual screeningOrdered By: Suzi Tonya on 05-30-2023 Thin prep Papanicolaou smear with manual screening 20 U/L 15-37 [facility] Absolute lymphocyte countOrd ered By: Antonio Ferguson on 05-29-2023 Lymphocytes Auto (Unsp spec) [#/Vol] 0.50 10*3/uL 0.83-4.51 [facility] Basophil percentageOrdered B y: Antonio Ferguson on 05-29-2023 Chloride [Moles/Vol] 106 mmol/L 98-107 [facility] Glucose [Mass/Vol] 122 mg/dL 74-106 [facility] Comment on above: Fasting Glucose resu lt from 100 to 125 mg/dL suggests IMPAIRED HOMEOSTASIS per A.D.A. criteria. Lactate [Moles/Vol] 2.2 mmol/L 0.4-2.0 [place] Comment on above: Critical Result(s) C alled at: 00:16:26 05/30/2023 by: Shayne Adam TO ALEX BARRETT RN (ED) Results read back by same. Potassium [Moles/Vol] 4.1 mmol/L 3.5-5.1 [facility] Comment on above: Moderate Hemolysis, Result may be falsely increased. Sodium [Moles/Vol] 135 mmol/L 136-145 [facility] Basophils/100 WBC (Bld) 0.3 % 0-1 [facility] Eosinophils/100 WBC (Bld) 0.0 % 0-5 [facility] Neutrophils (Bld) [#/Vol] 18.1 10*3/uL 2.0-7.7 [facility] Neutrophils/100 WBC (Bld) 92.0 % 47-70 [facility] WBC (Bld) [#/Vol] 19.7 10*3/uL 4.4-11.0 [place] Blood erythrocytes count (nu mber/volume)Ordered By: Antonio Ferguson on 05-29-2023 RBC (Bld) [#/Vol] 4.43 10*6/uL 4.6-6.2 [place] Blood hemoglobin measurement (mass/volume)Ordered By: Antonio Ferguson on 05-29-2023 Hemoglobin (Bld) [Mass/Vol] 13.9 g/dL 13.0-16.5 [facility] Blood lymphocytes/100 leukoc ytesOrdered By: Antonio Ferguson on 05-29-2023 Lymphocytes/100 WBC (Bld) 2.5 % 19-41 [facility] Blood monocytes/100 leukocyt esOrdered By: Antonio Ferguson on 05-29-2023 Monocytes/100 WBC (Bld) 4.6 % 0-10 [facility] Blood platelet mean volumeOr dered By: Antonio Ferguson on 05-29-2023 Platelet mean volume (Bld) [Entitic vol] 10.0 fL 6.2-12.0 [facility] Determination of erythrocyte mean corpuscular volume (MCV)Ordered By: Antonio Ferguson on 05-29-2023 MCV (RBC) [Entitic vol] 90.3 fL 80-94 [facility] Hematocrit Auto (Bld) [Volum e fraction]Ordered By: Antonio Ferguson on 05-29-2023 Hematocrit (Bld) [Volume fraction] 40.0 % 40-54 [facility] Laboratory - Chemistry and C hemistry - challengeOrdered By: Antonio Ferguson on 05-29-2023 CO2 [Moles/Vol] 21.0 mmol/L 21.0-32.0 [facility] Urea nitrogen/Creatinine [Mass ratio] 10.9 mg/mg 10-20 [facility] Laboratory - Hematology and Cell countsOrdered By: Antonio Ferguson on 05-29-2023 Erythrocyte distribution width (RBC) [Entitic vol] 40.3 fL 35.1-43.9 [facility] Erythrocyte distribution width (RBC) [Ratio] 12.2 % 11.6-14.6 [facility] Immature granulocytes/100 WBC (Bld) 0.600 % 0.0-0.9 [facility] Comment on above: IG% - Immature Granu locytes (promyelocytes, myelocytes and metamyelocytes) > 1% indicates that a LEFT SHIFT is Present. MCH (RBC) [Entitic mass] 31.4 pg 27.0-32.0 [facility] Nucleated RBC/100 WBC (Bld) [Ratio] 0 % 0-5 [facility] Laboratory - Microbiology an d Antimicrobial susceptibilityOrdered By: Antonio Ferguson on 05-29-2023 Bacteria identified Cx Nom (Bld) No growth in 5 days. [facility] MCHC Auto (RBC) [Mass/Vol]Or dered By: Antonio Ferguson on 05-29-2023 MCHC (RBC) [Mass/Vol] 34.8 g/dL 32-36 [facility] No Panel InformationOrdered By: Antonio Ferguson on 05-29-2023 Estimated Creatinine Clearance Calc 90.64 ml/min [facility] Estimated GFR (MDRD) Amer 75 mL/min >60 [facility] Comment on above: GFR Calc Estimated GFR (MDRD) Non-Af Amer 62 mL/min >60 [facility] Comment on above: Non- GFR Calc Platelets bldOrdered By: Shreya Ferguson on 05-29-2023 Platelets (Bld) [#/Vol] 294 10*3/uL 150-450 [facility] Serum or plasma calcium ani urement (mass/volume)Ordered By: Antonio Ferguson on 05-29-2023 Calcium [Mass/Vol] 9.3 mg/dL 8.5-10.1 [facility] Serum or plasma creatinine m easurement (mass/volume)Ordered By: Antonio Ferguson on 05-29-2023 Creatinine [Mass/Vol] 1.37 mg/dL 0.70-1.30 [facility] Comment on above: The validity of the calculated GFR & GFRAA in patients over 70 years has not been determined. Clinical correlation is essential. Serum or plasma urea nitroge n measurement (mass/volume)Ordered By: Antonio Ferguson on 05-29-2023 Urea nitrogen [Mass/Vol] 15 mg/dL 7-18 [facility] Thin prep Papanicolaou smear with manual screeningOrdered By: Antonio Ferguson on 05-29-2023 Thin prep Papanicolaou smear with manual screening 8 5-15 [facility] Basophil percentageOrdered B y: HEALTH ASSESSMENT on 05-25-2023 Cholesterol [Mass/Vol] 190 mg/dL <200 [facility] Comment on above: <200 mg/dL Desirable 200-240 mg/dL Borderline >240 mg/dL High Risk Glucose [Mass/Vol] 100 mg/dL 74-106 [facility] Comment on above: Fasting Glucose resu lt from 100 to 125 mg/dL suggests IMPAIRED HOMEOSTASIS per A.D.A. criteria. Triglyceride [Mass/Vol] 97 mg/dL <199 [facility] Comment on above: The drugs N-Acetylcy steine and Metamizole may falsely depress this assay.Serum Triglycerides Reference Interval Normal <150 mg/dL Borderline high 150 - 199 mg/dL High 200 - 499 mg/dL Very High > or = 500 mg/dL Serum or plasma cholesterol in HDL measurement (mass/volume)Ordered By: HEALTH ASSESSMENT on 05-25-2023 Cholesterol in HDL [Mass/Vol] 39 mg/dL >40 [facility] Comment on above: The drugs N-Acetylcy steine and Metamizole may falsely depress this assay. Reference Range HDL <40 mg/dL Low HDL Cholesterol HDL >or= 60 mg/dL High HDL Cholesterol Serum or plasma cholesterol in VLDL measurement (mass/volume)Ordered By: HEALTH ASSESSMENT on 05-25-2023 Cholesterol in VLDL [Mass/Vol] 19 mg/dL 5-40 [facility] Serum or plasma low density lipoprotein (LDL) cholesterol measurement (mass/volume)Ordered By: HEALTH ASSESSMENT on 05-25-2023 Cholesterol in LDL [Mass/Vol] 132 mg/dL 0-130 [facility] Absolute lymphocyte countOrd ered By: Drew Mayen on 04-12-2023 Lymphocytes Auto (Unsp spec) [#/Vol] 1.65 10*3/uL 0.83-4.51 [facility] Basophil percentageOrdered B y: Drew Mayen on 04-12-2023 Basophils/100 WBC (Bld) 0.7 % 0-1 [facility] Bilirubin [Mass/Vol] 0.80 mg/dL 0.20-1.00 [facility] Comment on above: For patients on eltr ombopag therapy, use of Dimension [place] TBIL is not recommended. Chloride [Moles/Vol] 108 mmol/L 98-107 [facility] Cholesterol [Mass/Vol] 171 mg/dL <200 [facility] Comment on above: <200 mg/dL Desirable 200-240 mg/dL Borderline >240 mg/dL High Risk Eosinophils/100 WBC (Bld) 2.0 % 0-5 [facility] Glucose [Mass/Vol] 101 mg/dL 74-106 [facility] Comment on above: Fasting Glucose resu lt from 100 to 125 mg/dL suggests IMPAIRED HOMEOSTASIS per A.D.A. criteria. Neutrophils (Bld) [#/Vol] 5.1 10*3/uL 2.0-7.7 [facility] Neutrophils/100 WBC (Bld) 69.3 % 47-70 [facility] Potassium [Moles/Vol] 4.0 mmol/L 3.5-5.1 [facility] Protein [Mass/Vol] 7.1 g/dL 6.4-8.2 [facility] Sodium [Moles/Vol] 141 mmol/L 136-145 [facility] Triglyceride [Mass/Vol] 112 mg/dL <199 [facility] Comment on above: The drugs N-Acetylcy steine and Metamizole may falsely depress this assay.Serum Triglycerides Reference Interval Normal <150 mg/dL Borderline high 150 - 199 mg/dL High 200 - 499 mg/dL Very High > or = 500 mg/dL WBC (Bld) [#/Vol] 7.4 10*3/uL 4.4-11.0 [facility] Blood erythrocytes count (nu mber/volume)Ordered By: Drew Mayen on 04-12-2023 RBC (Bld) [#/Vol] 4.70 10*6/uL 4.6-6.2 [place] Blood hemoglobin measurement (mass/volume)Ordered By: Drew Mayen on 04-12-2023 Hemoglobin (Bld) [Mass/Vol] 14.6 g/dL 13.0-16.5 [facility] Blood lymphocytes/100 leukoc ytesOrdered By: Drew Mayen on 04-12-2023 Lymphocytes/100 WBC (Bld) 22.3 % 19-41 [facility] Blood monocytes/100 leukocyt esOrdered By: Drew Mayen on 04-12-2023 Monocytes/100 WBC (Bld) 5.4 % 0-10 [facility] Blood platelet mean volumeOr dered By: Drew Mayen on 04-12-2023 Platelet mean volume (Bld) [Entitic vol] 10.4 fL 6.2-12.0 [facility] Determination of erythrocyte mean corpuscular volume (MCV)Ordered By: Drew Mayen on 04-12-2023 MCV (RBC) [Entitic vol] 90.6 fL 80-94 [facility] Hematocrit Auto (Bld) [Volum e fraction]Ordered By: Drew Mayen on 04-12-2023 Hematocrit (Bld) [Volume fraction] 42.6 % 40-54 [facility] Iron measurement (mass/mass) Ordered By: Drew Mayen on 04-12-2023 Iron (Unsp spec) [Mass/Mass] 110 ug/dL 65-175 [facility] Laboratory - Chemistry and C hemistry - challengeOrdered By: Drew Mayen on 04-12-2023 ALP [Catalytic activity/Vol] 71 U/L 45-117 [facility] ALT [Catalytic activity/Vol] 61 U/L 16-61 [facility] CO2 [Moles/Vol] 26.0 mmol/L 21.0-32.0 [facility] Globulin (S) [Mass/Vol] 3.1 g/dL 2.2-4.2 [facility] Urea nitrogen/Creatinine [Mass ratio] 9.3 mg/mg 10-20 [facility] Laboratory - Hematology and Cell countsOrdered By: Drew Mayen on 04-12-2023 Erythrocyte distribution width (RBC) [Entitic vol] 41.0 fL 35.1-43.9 [facility] Erythrocyte distribution width (RBC) [Ratio] 12.5 % 11.6-14.6 [facility] Immature granulocytes/100 WBC (Bld) 0.300 % 0.0-0.9 [facility] Comment on above: IG% - Immature Granu locytes (promyelocytes, myelocytes and metamyelocytes) > 1% indicates that a LEFT SHIFT is Present. MCH (RBC) [Entitic mass] 31.1 pg 27.0-32.0 [facility] Nucleated RBC/100 WBC (Bld) [Ratio] 0 % 0-5 [facility] MCHC Auto (RBC) [Mass/Vol]Or dered By: Drew Mayen on 04-12-2023 MCHC (RBC) [Mass/Vol] 34.3 g/dL 32-36 [facility] No Panel InformationOrdered By: Drew Mayen on 04-12-2023 Estimated GFR (MDRD) Amer 100 mL/min >60 [facility] Comment on above: GFR Calc Estimated GFR (MDRD) Non-Af Amer 82 mL/min >60 [facility] Comment on above: Non- GFR Calc Total Iron Binding Capacity 321 ug/dL 250-450 [facility] Platelets bldOrdered By: Sagar Mayen on 04-12-2023 Platelets (Bld) [#/Vol] 349 10*3/uL 150-450 [facility] Serum or plasma albumin ani urement (mass/volume)Ordered By: Drew Mayen on 04-12-2023 Albumin [Mass/Vol] 4.0 g/dL 3.2-5.0 [facility] Serum or plasma albumin/glob ulin mass ratioOrdered By: Drew Mayen on 04-12-2023 Albumin/Globulin [Mass ratio] 1.3 {ratio} 0.9-2.4 [facility] Serum or plasma calcium ani urement (mass/volume)Ordered By: Drew Mayen on 04-12-2023 Calcium [Mass/Vol] 9.1 mg/dL 8.5-10.1 [facility] Serum or plasma cholesterol in HDL measurement (mass/volume)Ordered By: Drew Mayen on 04-12-2023 Cholesterol in HDL [Mass/Vol] 37 mg/dL >40 [facility] Comment on above: The drugs N-Acetylcy steine and Metamizole may falsely depress this assay. Reference Range HDL <40 mg/dL Low HDL Cholesterol HDL >or= 60 mg/dL High HDL Cholesterol Serum or plasma cholesterol in VLDL measurement (mass/volume)Ordered By: Drew Mayen on 04-12-2023 Cholesterol in VLDL [Mass/Vol] 22 mg/dL 5-40 [facility] Serum or plasma creatinine m easurement (mass/volume)Ordered By: Drew Mayen 04-12-2023 Creatinine [Mass/Vol] 1.07 mg/dL 0.70-1.30 [facility] Comment on above: The validity of the calculated GFR & GFRAA in patients over 70 years has not been determined. Clinical correlation is essential. Serum or plasma ferritin mariam surement (mass/volume)Ordered By: Drew Mayen on 04-12-2023 Ferritin [Mass/Vol] 121 ng/mL 26-388 [place] Serum or plasma low density lipoprotein (LDL) cholesterol measurement (mass/volume)Ordered By: Drew Mayen 04-12-2023 Cholesterol in LDL [Mass/Vol] 112 mg/dL 0-130 [facility] Serum or plasma urea nitroge n measurement (mass/volume)Ordered By: Drew Mayen on 04-12-2023 Urea nitrogen [Mass/Vol] 10 mg/dL 7-18 [facility] Thin prep Papanicolaou smear with manual screeningOrdered By: Drew Mayen on 04-12-2023 Thin prep Papanicolaou smear with manual screening 29 U/L 15-37 [facility] Thin prep Papanicolaou smear with manual screening 7 5-15 [facility] Absolute lymphocyte counton 11-24-2022 Lymphocytes Auto (Unsp spec) [#/Vol] 1.41 10*3/uL 0.83-4.51 [facility] Work Phone: Basophil percentageon 2021 Basophils/100 WBC (Bld) 0.4 % 0-1 [facility] Work Phone: Bilirubin [Mass/Vol] 1.10 mg/dL 0.20-1.00 [facility] Work Phone: Comment on above: For patients on eltr ombopag therapy, use of Dimension [place] TBIL is not recommended. Chloride [Moles/Vol] 107 mmol/L 98-107 [facility] Work Phone: Eosinophils/100 WBC (Bld) 0.1 % 0-5 [facility] Work Phone: Glucose [Mass/Vol] 120 mg/dL 74-106 [facility] Work Phone: Comment on above: Fasting Glucose resu lt from 100 to 125 mg/dL suggests IMPAIRED HOMEOSTASIS per A.D.A. criteria. Neutrophils (Bld) [#/Vol] 7.3 10*3/uL 2.0-7.7 [facility] Work Phone: Neutrophils/100 WBC (Bld) 75.7 % 47-70 [facility] Work Phone: Potassium [Moles/Vol] 3.6 mmol/L 3.5-5.1 [facility] Work Phone: Protein [Mass/Vol] 7.1 g/dL 6.4-8.2 [facility] Work Phone: Sodium [Moles/Vol] 140 mmol/L 136-145 [facility] Work Phone: WBC (Bld) [#/Vol] 9.7 10*3/uL 4.4-11.0 [facility] Work Phone: Blood erythrocytes count (nu mber/volume)on 11-24-2022 RBC (Bld) [#/Vol] 4.53 10*6/uL 4.6-6.2 [place] Work Phone: Blood hemoglobin measurement (mass/volume)on 11-24-2022 Hemoglobin (Bld) [Mass/Vol] 13.8 g/dL 13.0-16.5 [facility] Work Phone: Blood lymphocytes/100 leukoc yteson 11-24-2022 Lymphocytes/100 WBC (Bld) 14.5 % 19-41 [facility] Work Phone: Blood monocytes/100 leukocyt eson 11-24-2022 Monocytes/100 WBC (Bld) 9.0 % 0-10 [facility] Work Phone: Blood platelet mean volumeon 11-24-2022 Platelet mean volume (Bld) [Entitic vol] 10.2 fL 6.2-12.0 [facility] Work Phone: Determination of erythrocyte mean corpuscular volume (MCV)on 11-24-2022 MCV (RBC) [Entitic vol] 92.5 fL 80-94 [facility] Work Phone: Hematocrit Auto (Bld) [Volum e fraction]on 11-24-2022 Hematocrit (Bld) [Volume fraction] 41.9 % 40-54 [facility] Work Phone: Iron measurement (mass/mass) on 11-24-2022 Iron (Unsp spec) [Mass/Mass] 26 ug/dL 65-175 [facility] Work Phone: Laboratory - Chemistry and C hemistry - challengeon 11-24-2022 ALP [Catalytic activity/Vol] 66 U/L 45-117 [facility] Work Phone: ALT [Catalytic activity/Vol] 43 U/L 16-61 [facility] Work Phone: CO2 [Moles/Vol] 26.0 mmol/L 21.0-32.0 [facility] Work Phone: Cobalamin (Vitamin B12) [Mass/Vol] 285 pg/mL 211-911 [facility] Work Phone: Globulin (S) [Mass/Vol] 3.6 g/dL 2.2-4.2 [facility] Work Phone: Urea nitrogen/Creatinine [Mass ratio] 9.0 mg/mg 10-20 [facility] Work Phone: Laboratory - Hematology and Cell countson 11-24-2022 Erythrocyte distribution width (RBC) [Entitic vol] 42.7 fL 35.1-43.9 [facility] Work Phone: Erythrocyte distribution width (RBC) [Ratio] 12.6 % 11.6-14.6 [facility] Work Phone: Immature granulocytes/100 WBC (Bld) 0.300 % 0.0-0.9 [facility] Work Phone: Comment on above: IG% - Immature Granu locytes (promyelocytes, myelocytes and metamyelocytes) > 1% indicates that a LEFT SHIFT is Present. MCH (RBC) [Entitic mass] 30.5 pg 27.0-32.0 [facility] Work Phone: Nucleated RBC/100 WBC (Bld) [Ratio] 0 % 0-5 [facility] Work Phone: MCHC Auto (RBC) [Mass/Vol]on 11-24-2022 MCHC (RBC) [Mass/Vol] 32.9 g/dL 32-36 [facility] Work Phone: No Panel Informationon 11-24 Estimated Creatinine Clearance Calc 124.17 ml/min [facility] Work Phone: Estimated GFR (MDRD) Amer 109 mL/min >60 [facility] Work Phone: Comment on above: GFR Calc Estimated GFR (MDRD) Non-Af Amer 90 mL/min >60 [facility] Work Phone: Comment on above: Non- GFR Calc Total Iron Binding Capacity 289 ug/dL 250-450 [facility] Work Phone: Platelets bldon 11-24-2022 Platelets (Bld) [#/Vol] 323 10*3/uL 150-450 [facility] Work Phone: Serum or plasma albumin ani urement (mass/volume)on 11-24-2022 Albumin [Mass/Vol] 3.5 g/dL 3.2-5.0 [facility] [facility] Work Phone: Serum or plasma albumin/glob ulin mass ratioon 11-24-2022 Albumin/Globulin [Mass ratio] 1.0 {ratio} 0.9-2.4 [facility] Work Phone: Serum or plasma calcium ani urement (mass/volume)on 11-24-2022 Calcium [Mass/Vol] 8.4 mg/dL 8.5-10.1 [facility] Work Phone: Serum or plasma creatinine m easurement (mass/volume)on 11-24-2022 Creatinine [Mass/Vol] 1.00 mg/dL 0.70-1.30 [facility] Work Phone: Comment on above: The validity of the calculated GFR & GFRAA in patients over 70 years has not been determined. Clinical correlation is essential. Serum or plasma ferritin mariam surement (mass/volume)on 11-24-2022 Ferritin [Mass/Vol] 222 ng/mL 26-388 [place] Work Phone: Serum or plasma folate measu rement (mass/volume)on 11-24-2022 Folate [Mass/Vol] 17.70 ng/mL 3.1-55.4 [facility] Work Phone: Serum or plasma iron saturat ion measurement (mass fraction)on 11-24-2022 Iron saturation [Mass fraction] 9.0 % 15.0-55.0 [facility] Work Phone: Serum or plasma urea nitroge n measurement (mass/volume)on 11-24-2022 Urea nitrogen [Mass/Vol] 9 mg/dL 7-18 [facility] Work Phone: Thin prep Papanicolaou smear with manual screeningon 11-24-2022 Thin prep Papanicolaou smear with manual screening 15 U/L 15-37 [facility] Work Phone: Thin prep Papanicolaou smear with manual screening 7 5-15 [facility] Work Phone: [phone] Absolute lymphocyte counton 11-23-2022 Lymphocytes Auto (Unsp spec) [#/Vol] 1.31 10*3/uL 0.83-4.51 [facility] Work Phone: Basophil percentageon 2021 Basophils/100 WBC (Bld) 0.2 % 0-1 [facility] Work Phone: Eosinophils/100 WBC (Bld) 0.1 % 0-5 [facility] Work Phone: [phone] Neutrophils (Bld) [#/Vol] 7.2 10*3/uL 2.0-7.7 [facility] Work Phone: Neutrophils/100 WBC (Bld) 77.5 % 47-70 [facility] Work Phone: [phone] WBC (Bld) [#/Vol] 9.3 10*3/uL 4.4-11.0 [facility] Work Phone: Blood erythrocytes count (nu mber/volume)on 11-23-2022 RBC (Bld) [#/Vol] 3.60 10*6/uL 4.6-6.2 [place] Work Phone: Blood hemoglobin measurement (mass/volume)on 11-23-2022 Hemoglobin (Bld) [Mass/Vol] 11.1 g/dL 13.0-16.5 [facility] Work Phone: Blood lymphocytes/100 leukoc yteson 11-23-2022 Lymphocytes/100 WBC (Bld) 14.2 % 19-41 [facility] Work Phone: Blood monocytes/100 leukocyt eson 11-23-2022 Monocytes/100 WBC (Bld) 7.6 % 0-10 [facility] Work Phone: [phone] Blood platelet mean volumeon 11-23-2022 Platelet mean volume (Bld) [Entitic vol] 10.3 fL 6.2-12.0 [facility] Work Phone: Determination of erythrocyte mean corpuscular volume (MCV)on 11-23-2022 MCV (RBC) [Entitic vol] 95.0 fL 80-94 [facility] Work Phone: Hematocrit Auto (Bld) [Volum e fraction]on 11-23-2022 Hematocrit (Bld) [Volume fraction] 34.2 % 40-54 [facility] Work Phone: Laboratory - Hematology and Cell countson 11-23-2022 Erythrocyte distribution width (RBC) [Entitic vol] 42.8 fL 35.1-43.9 [facility] Work Phone: Erythrocyte distribution width (RBC) [Ratio] 12.4 % 11.6-14.6 [facility] Work Phone: [phone] Immature granulocytes/100 WBC (Bld) 0.400 % 0.0-0.9 [facility] Work Phone: Comment on above: IG% - Immature Granu locytes (promyelocytes, myelocytes and metamyelocytes) > 1% indicates that a LEFT SHIFT is Present. MCH (RBC) [Entitic mass] 30.8 pg 27.0-32.0 [facility] Work Phone: Nucleated RBC/100 WBC (Bld) [Ratio] 0 % 0-5 [facility] Work Phone: MCHC Auto (RBC) [Mass/Vol]on 11-23-2022 MCHC (RBC) [Mass/Vol] 32.5 g/dL 32-36 [facility] Work Phone: Platelets bldon 11-23-2022 Platelets (Bld) [#/Vol] 246 10*3/uL 150-450 [facility] Work Phone: NUC LYMPHOSCINTIGRAPHYon NUC LYMPHOSCINTIGRAPHY EXAM: [...] have reviewed and approved this report. Normal [facility] CBC AND ELECTRONIC DIFFon Basophils (Bld) [#/Vol] 0.07 10*3/uL Normal 0.00-0.09 [facility] Comment on above: Performed By: #### L [id number] #### [facility] (DEFAULT) [address] [address] Basophils/100 WBC (Bld) 0.8 % Normal [facility] Comment on above: Performed By: #### L AB980 #### [facility] (DEFAULT) [address] [address] DIFF STATUS Electronic Differential Normal [facility] Comment on above: Performed By: #### L AB980 #### [facility] (DEFAULT) [address] [address] Eosinophils (Bld) [#/Vol] 0.09 10*3/uL Normal 0.00-0.48 [facility] Comment on above: Performed By: #### L AB980 #### [facility] (DEFAULT) [address] [address] Eosinophils/100 WBC (Bld) 1.1 % Normal [facility] Comment on above: Performed By: #### L [id number] #### [facility] (DEFAULT) [address] [address] Hematocrit (Bld) [Volume fraction] 46.5 % Normal 39.6-48.8 [facility] Comment on above: Performed By: #### L [id number] #### [facility] (DEFAULT) [address] [address] Hemoglobin (Bld) [Mass/Vol] 16.1 g/dL Normal 13.4-16.8 [facility] Comment on above: Performed By: #### L [id number] #### [facility] (DEFAULT) [address] [address] Immature Grans % 0.5 % Normal [facility] Comment on above: Performed By: #### L [id number] #### [facility] (DEFAULT) [address] [address] Immature Grans Absolute 0.04 K/uL Normal <=0.08 [facility] Comment on above: Performed By: #### L AB980 #### [facility] (DEFAULT) [address] [address] Lymphocytes (Bld) [#/Vol] 1.94 10*3/uL Normal 0.83-3.57 [facility] Comment on above: Performed By: #### L AB980 #### [facility] (DEFAULT) [address] [place] [address] Lymphocytes/100 WBC (Bld) 23.1 % Normal [facility] Comment on above: Performed By: #### L AB980 #### [facility] (DEFAULT) [address] [place] [address] MCV (RBC) [Entitic vol] 89.4 fL Normal 79.0-94.5 [facility] Comment on above: Performed By: #### L AB980 #### [facility] (DEFAULT) [address] [place] [address] Mean Cell Hgb 31.0 pg Normal 26.1-33.3 [facility] Comment on above: Performed By: #### L AB980 #### [facility] (DEFAULT) [address] [address] Mean Cell Hgb Conc 34.6 g/dL Normal 31.9-36.5 [facility] Comment on above: Performed By: #### L AB980 #### [facility] (DEFAULT) [address] [place] [address] Monocytes (Bld) [#/Vol] 0.50 10*3/uL Normal 0.24-0.93 [facility] Comment on above: Performed By: #### L AB980 #### [facility] (DEFAULT) [address] [address] Monocytes/100 WBC (Bld) 6.0 % Normal [facility] Comment on above: Performed By: #### L AB980 #### [facility] (DEFAULT) [address] [address] Nucleated RBC 0.0 /100 WBC Normal <=0.2 [facility] Comment on above: Performed By: #### L AB980 #### [facility] (DEFAULT) [address] [place] [address] Platelet mean volume (Bld) [Entitic vol] 10.2 fL Normal 8.7-12.3 [facility] Comment on above: Performed By: #### L AB980 #### [facility] (DEFAULT) [address] [place] [address] Platelets (Bld) [#/Vol] 427 10*3/uL High 146-337 [facility] Comment on above: Performed By: #### L [id number] #### [facility] (DEFAULT) [address] [place] [address] RBC (Bld) [#/Vol] 5.20 10*6/uL Normal 4.38-5.83 [facility] Comment on above: Performed By: #### L AB980 #### [facility] (DEFAULT) [address] [place] [address] RBC Distribution 12.0 % Normal 10.9-14.3 [facility] Comment on above: Performed By: #### L AB980 #### [facility] (DEFAULT) [address] [place] [address] Segs + Bands Auto 68.5 % Normal [facility] Comment on above: Performed By: #### L AB980 #### [facility] [place] (DEFAULT) [address] [place] [address] Segs + Bands,Absolute Auto 5.76 K/uL Normal 1.57-6.19 [facility] Comment on above: Performed By: #### L [id number] #### [facility] (DEFAULT) [address] [place] [address] WBC (Bld) [#/Vol] 8.40 10*3/uL Normal 3.73-10.10 [facility] Comment on above: Performed By: #### L AB980 #### [facility] (DEFAULT) [address] [address] CMPN WITHOUT GLUCOSEon 12-10 Albumin [Mass/Vol] 4.9 g/dL Normal 3.5-5.0 [facility] Comment on above: Performed By: #### C MPNG #### [facility] (DEFAULT) [address] [place] [address] ALP [Catalytic activity/Vol] 69 U/L Normal 32-126 [facility] Comment on above: Performed By: #### C MPNG #### [facility] (DEFAULT) [address] [place] [address] ALT [Catalytic activity/Vol] 52 U/L Normal 10-52 [facility] Comment on above: Performed By: #### C MPNG #### [facility] (DEFAULT) [address] [place] [address] Anion gap [Moles/Vol] 14 mmol/L Normal 7-17 [facility] Comment on above: Performed By: #### C MPNG #### [facility] (DEFAULT) [address] [place] [address] AST [Catalytic activity/Vol] 27 U/L Normal 10-39 [facility] Comment on above: Performed By: #### C MPNG #### [facility] (DEFAULT) [address] [place] [address] Bilirubin [Mass/Vol] 0.6 mg/dL Normal <1.5 [facility] Comment on above: Performed By: #### C MPNG #### [facility] (DEFAULT) [address] [place] [address] Calcium [Mass/Vol] 9.7 mg/dL Normal 8.6-10.5 [facility] Comment on above: Performed By: #### C MPNG #### [facility] (DEFAULT) [address] [place] [address] Chloride [Moles/Vol] 101 mmol/L Normal 98-108 [facility] Comment on above: Performed By: #### C MPNG #### [facility] (DEFAULT) [address] [place] [address] CO2 [Moles/Vol] 28 mmol/L Normal 21-31 [facility] Comment on above: Performed By: #### C MPNG #### [facility] (DEFAULT) [address] [place] [address] Creatinine [Mass/Vol] 1.09 mg/dL Normal 0.70-1.30 [facility] Comment on above: Performed By: #### C MPNG #### [facility] (DEFAULT) [address] [place] [address] EST GFR, >=60 Normal >=60 [facility] Comment on above: Performed By: #### C MPNG #### [facility] (DEFAULT) [address] [place] [address] EST GFR,Non >=60 Normal >=60 [facility] Comment on above: Performed By: #### C MPNG #### [facility] (DEFAULT) [address] [place] [address] Potassium [Moles/Vol] 3.4 mmol/L Low 3.5-5.0 [facility] Comment on above: Performed By: #### C MPNG #### [facility] (DEFAULT) [address] [place] [address] Protein [Mass/Vol] 7.8 g/dL Normal 6.4-8.3 [facility] Comment on above: Performed By: #### C MPNG #### [facility] (DEFAULT) [address] [place] [address] Sodium [Moles/Vol] 140 mmol/L Normal 133-143 [facility] Comment on above: Performed By: #### C MPNG #### [facility] (DEFAULT) [address] [place] [address] Urea nitrogen [Mass/Vol] 11 mg/dL Normal 7-25 [facility] Comment on above: Performed By: #### C MPNG #### [facility] (DEFAULT) [address] [place] [address] Urea nitrogen/Creatinine [Mass ratio] 10 mg/mg Normal [facility] Comment on above: Performed By: #### C MPNG #### [facility] (DEFAULT) [address] [place] [address] XR CHEST PA AND LATERALon XR CHEST [...] No active disease in the chest. Normal [facility] NM GALL BLADDER NO STIMULATI ONon 03-07-2021 [...] No evidence of bile leak. Dictated by Pier Worker: Delfina Smith DO Reviewed and Signed by: Yamilka Kim MD ---- Electronic Signature on File ---- Signed By: Yamilka Kim MD [email or web address] Dictated: 03/07/2021 1:09 PM Signed: 03/07/2021 1:38 PM Reported By: YAMILKA KIM M.D. Signed By: YAMILKA KIM M.D. [facility] Anion gap [Moles/Vol] 4 mmol/L Low 5-16 [facility] Comment on above: Performed By: #### L 500.05042, L500.93483, L500.67396, L500.69472 #### [facility] [place] [address] Calcium [Mass/Vol] 9.7 mg/dL Normal 8.5-10.5 [facility] Comment on above: Result Comment: NOTE NEW NORMAL RANGE DUE TO REAGENT CHANGE Performed By: #### L 500.97078, L500.79931, L500.50860, L500.07282 #### [facility] [address] [place] [address] Chloride [Moles/Vol] 106 mmol/L Normal 98-107 [facility] Comment on above: Performed By: #### L 500.73251, L500.21561, L500.87136, L500.56388 #### [facility] [place] [address] CO2 [Moles/Vol] 32.0 mmol/L Normal 21-32 [facility] Comment on above: Performed By: #### L 500.39336, L500.88575, L500.02188, L500.48895 #### [facility] [address] [place], [place] [address] Creatinine [Mass/Vol] 1.05 mg/dL Normal 0.5-1.4 [facility] Comment on above: Result Comment: NOTE NEW NORMAL RANGE DUE TO REAGENT CHANGE Patients receiving either N-Acetylcysteine (NAC) or Metamizole prior to venipuncture, may have falsely depressed results. Performed By: #### L 500.03852, L500.00027, L500.65473, L500.59811 #### [facility] [address] [place], [place] [address] Glucose [Mass/Vol] 108 mg/dL High 70-100 [facility] Comment on above: Result Comment: 70-1 00- Normal Fasting; 100-125 Impaired Fasting; greater than 126 on more than one result- Diabetes. ADA guidelines. Results may be falsely elevated after the administration of Sulfapyridine. Results may be falsely depressed after the administration of Sulfasalazine. Performed By: #### L 500.89106, L500.43258, L500.05515, L500.36813 #### [facility] [address] [place] [address] Potassium [Moles/Vol] 4.9 mmol/L Normal 3.5-5.1 [facility] Comment on above: Result Comment: Slig ht Hemolysis, Result may be affected. Performed By: #### L 500.07921, L500.45091, L500.97713, L500.53940 #### [facility] [address] [place] [address] Sodium [Moles/Vol] 142 mmol/L Normal 136-145 [facility] Comment on above: Performed By: #### L 500.64172, L500.91558, L500.98890, L500.97407 #### [facility] [address] [place] [address] Urea nitrogen [Mass/Vol] 10 mg/dL Normal 7-26 [facility] Comment on above: Performed By: #### L 500.05642, L500.62542, L500.32506, L500.92596 #### [facility] [address] [place] [address] Urea nitrogen/Creatinine [Mass ratio] 10 mg/mg Low 15-24 [facility] Comment on above: Performed By: #### L 500.48188, L500.09775, L500.84955, L500.40339 #### [facility] [address] [place], [place] [address] CBC W/DIFFon 03-06-2021 BASO ABS 0.00 K/CU MM Normal 0-0.2 [facility] Comment on above: Performed By: #### L 200.42944 #### [facility] [address] [place] [address] Basophils/100 WBC (Bld) 0.2 % Normal 0-2 [facility] Comment on above: Performed By: #### L 200.56890 #### [facility] [address] [place] [address] EOS ABS 0.10 K/CU MM Normal 0-0.5 [facility] Comment on above: Performed By: #### L 200.54984 #### [facility] [address] [place] [address] Eosinophils/100 WBC (Bld) 1.1 % Normal 0-5 [facility] Comment on above: Performed By: #### L 200.52006 #### [facility] [address] [place] [address] Erythrocyte distribution width (RBC) [Ratio] 12.2 % Normal 11-14.5 [facility] Comment on above: Performed By: #### L 200.43598 #### [facility] [address] [place] [address] Hematocrit (Bld) [Volume fraction] 42.3 % Normal 41.0-53.0 [facility] Comment on above: Performed By: #### L 200.37153 #### [facility] [address] [place] [address] Hemoglobin (Bld) [Mass/Vol] 14.3 g/dL Normal 13.5-17.5 [facility] Comment on above: Performed By: #### L 200.35458 #### [facility] [address] [place] [address] IMMATR GRAN ABS 0.00 K/CU MM Normal Less than 2 [facility] Comment on above: Performed By: #### L 200.09329 #### [facility] [address] [place] [address] IMMATURE GRAN % 0.2 % Normal Less than 2 [facility] Comment on above: Performed By: #### L 200.91122 #### [facility] [address] [place] [address] LYMPH ABS 1.50 K/CU MM Normal 0.9-4.4 [facility] Comment on above: Performed By: #### L 200.94168 #### [facility] [address] [place] [address] Lymphocytes/100 WBC (Bld) 17.8 % Low 20-40 [facility] Comment on above: Performed By: #### L 200.09768 #### [facility] [address] [place] [address] MCHC (RBC) [Mass/Vol] 33.8 g/dL Normal 32.0-36.0 [facility] Comment on above: Performed By: #### L 200.28644 #### [facility] [address] [place] [address] MCV (RBC) [Entitic vol] 95.1 fL Normal 80.0-99.0 [facility] Comment on above: Performed By: #### L 200.30707 #### [facility] [address] [place] [address] MONO ABS 0.60 K/CU MM Normal 0.1-1.1 [facility] Comment on above: Performed By: #### L 200.20672 #### [facility] [address] [place] [address] Monocytes/100 WBC (Bld) 7.2 % Normal 2-10 [facility] Comment on above: Performed By: #### L 200.69885 #### [facility] [address] [place], [place] [address] NEUTROPHIL ABS 6.10 K/CU MM Normal 2.0-8.3 [facility] Comment on above: Performed By: #### L 200.78118 #### [facility] [address] [place] [address] Neutrophils/100 WBC (Bld) 73.5 % Normal 45-75 [facility] Comment on above: Performed By: #### L 200.03903 #### [facility] [address] [place] [address] Nucleated RBC/100 WBC (Bld) [Ratio] 0.0 % Normal Less than 1 [facility] Comment on above: Performed By: #### L 200.04563 #### [facility] [address] [place] [address] Platelet mean volume (Bld) [Entitic vol] 10.8 fL Normal 9.4-12.4 [facility] Comment on above: Performed By: #### L 200.20436 #### [facility] [address] [place] [address] PLT 303 K/CU MM Normal 150-450 [facility] Comment on above: Performed By: #### L 200.06085 #### [facility] [address] [place] [address] RBC 4.45 M/CU MM Low 4.50-6.00 [facility] Comment on above: Performed By: #### L 200.74536 #### [facility] [address] [place] [address] WBC 8.3 K/CUMM Normal 4.5-11.0 [facility] Comment on above: Performed By: #### L 200.66184 #### [facility] [address] [place] [address] GFR ESTon 03-06-2021 IF AMER Greater than 60 Normal [facility] Comment on above: Performed By: #### L 500.00559, L500.97488, L500.83877, L500.23565 #### [facility] [address] [place] [address] IF non-AFR AMER Greater than 60 Normal [facility] Comment on above: Performed By: #### L 500.04801, L500.29261, L500.32453, L500.37263 #### [facility] [place] [address] LIPASEon 03-06-2021 Lipase [Catalytic activity/Vol] 29 U/L Normal 12-60 [facility] Comment on above: Result Comment: NOTE NEW NORMAL RANGE DUE TO REAGENT CHANGE Performed By: #### L 500.64443, L500.36741, L500.45524, L500.54251 ####[facility] [id number] [place], [place] [address]Cs# [phone] LIVERon 03-06-2021 Albumin [Mass/Vol] 3.9 g/dL Normal 3.2-5.0 [facility] Comment on above: Performed By: #### L 500.79362, L500.42286, L500.40484, L500.94412 #### [facility] [place] [address] Albumin/Globulin [Mass ratio] 1.4 {ratio} Normal 0.8-2.0 [facility] Comment on above: Performed By: #### L 500.77435, L500.02995, L500.45562, L500.24728 #### [facility] [address] [place] [address] ALK PHOS 87 U/L Normal 45-117 [facility] Comment on above: Performed By: #### L 500.02563, L500.39185, L500.98723, L500.84501 #### [facility] [address] [place] [address] ALT [Catalytic activity/Vol] 87 U/L High 13-61 [facility] Comment on above: Result Comment: RESU LTS MAY BE FALSELY DEPRESSED AFTER THE ADMINISTRATION OF SULFASALAZINE AND/OR SULFAPYRIDINE. Performed By: #### L 500.92753, L500.62719, L500.63641, L500.75263 #### [facility] [address] [place] [address] AST [Catalytic activity/Vol] 30 U/L Normal 8-34 [facility] Comment on above: Result Comment: RESU LTS MAY BE FALSELY DEPRESSED AFTER THE ADMINISTRATION OF SULFASALAZINE AND/OR SULFAPYRIDINE. Performed By: #### L 500.41385, L500.66594, L500.11923, L500.03832 #### [facility] [address] [place] [address] BILI DIRECT 0.5 MG/DL High 0.00-0.36 [facility] Comment on above: Result Comment: NOTE NEW NORMAL RANGE DUE TO REAGENT CHANGE Performed By: #### L 500.57244, L500.94004, L500.75557, L500.65548 #### [facility] [address] [place] [address] BILI TOTAL 1.10 MG/DL High 0.2-1.0 [facility] Comment on above: Performed By: #### L 500.67353, L500.04788, L500.71385, L500.66267 #### [facility] [address] [place] [address] Globulin (S) [Mass/Vol] 2.8 g/dL Normal 2.2-4.2 [facility] Comment on above: Performed By: #### L 500.87708, L500.21706, L500.06356, L500.17577 #### [facility] [address] [place] [address] Protein [Mass/Vol] 6.7 g/dL Normal 6.0-8.5 [facility] Comment on above: Performed By: #### L 500.77567, L500.49781, L500.67091, L500.78239 #### [facility] [address] [place] [address] OR.OPRPTon 03-04-2021 Operative Report Normal [facility] OR.OPRPT [facility] Patient Name: RIAZ DIOP [address] [place] [address] Date of : 85 [place], [place] [address] Unit Number: [id number] Operative Report [place] [facility] [place]ending Doctor: Zay Prado MD Service Date: 03/03/212206 Operative Report Procedure Date: 03/03/21 Attending Physician: Zay Prado MD Procedure: PREOPERATIVE DIAGNOSIS: Cholelithiasis, history of acute cholecystitis. POSTOPERATIVE DIAGNOSIS: Cholelithiasis, history of acute cholecystitis. OPERATION: Laparoscopic cholecystectomy with intraoperative cholangiography using fluoroscopy. SURGEON: Zay Prado MD, [facility] ANESTHESIA: General endotracheal. INDICATIONS: The patient is [...] Zay Prado MD Verified/Reviewed by 03/03/21 2217 [facility] David Iverson 03-03-2021 DS DATE OF ADMISSION: 03/03/2021 DATE OF DISCHARGE: [...] binder as needed for pain. He was [facility] PATIENT NAME: RIAZ DIOP [address] [place] MEDICAL REC #: [id number] [place] [address] ADMIT DATE: DISCHARGE DATE: DISCHARGE SUMMARY ATTENDING PHY: Zay Prado MD given a prescription for Jolley and also for sublingual Zofran. Zay Prado MD [id number] SSI File#: [id number] END OF DOCUMENT / CHANGE LOG FOLLOWS Last Edited By Elec. Signed By Zay Prado MD #Zay Anand MD #[place] on 03/16/2021 00:38 ET on 03/16/2021 00:38 ET Revision Number - 2 Verified/Reviewed by 03/16/21 0038 AUG[place]O [facility] PATIENT NAME: RIAZ DIOP [address] [place] MEDICAL REC #: [id number] [place] [address] ADMIT DATE: DISCHARGE DATE: DISCHARGE SUMMARY ATTENDING PHY: Zay Prado MD [facility] FLUOROSCOPY IN OR/PAIN MGTon 03-03-2021 FLUOROSCOPY [...] POLO M.D. Signed By: ANDRAE POLO M.D. [facility] David Moar 03-03-2021 CHIEF COMPLAINT: Gal lstones with attacks [...] Currently include loratadine 10 mg p.o. daily. [facility] PATIENT NAME: RIAZ DIOP [address] [place] MEDICAL REC #: [id number] [place] [address] ADMIT DATE: DISCHARGE DATE: HISTORY and PHYSICAL ATTENDING PHY: Zay Prado MD ALLERGIES: No known drug allergies. He avoids SHELLFISH due to severe nausea and vomiting, though he is okay with intravenous iodine-based contrast. SOCIAL HISTORY: The patient has no significant history of ethanol or tobacco use. 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 FAMILY HISTORY: Positive for coronary artery disease [...] of hemoptysis. He does snore somewhat, but [facility] PATIENT NAME: RIAZ DIOP [address] [place] MEDICAL REC #: [id number] [place] [address] ADMIT DATE: DISCHARGE DATE: HISTORY and PHYSICAL [...] Chest: Symmetric. Respirations are clear to auscultation [facility] PATIENT NAME: RIAZ DIOP [address] [place] MEDICAL REC #: [id number] [place] [address] ADMIT DATE: DISCHARGE DATE: HISTORY and PHYSICAL [...] content not included)... Normal [facility] SURG 03-03-2021 SURG ------- Patient: RIAZ DIOP Lona SPECIMEN: S- Collection Date: 03/03/21 Received: 03/04/21 Status: BRANDON Malcolm Dr.: Zay Prado MD Ph# Othr. Dr.: Drew Mayen MD Material for Examination: A [...] wall is 0.1 to 0.2 cm thick. Cook Manager sections are submitted in cassette A1 including the cystic duct and cystic node. MICROSCOPIC DESCRIPTION One Cyndie stained slide examined. COPIES TO: Drew Mayen MD, Russell L MD Signed Verified/Reviewed by MELANIE ANTUNEZ MD 03/05/21 This dictation was created using voice recognition software. Phonetic and/or minor grammatical errors may exist. [facility] NAME: RIAZ DIOP Pathology and Laboratory Medicine UNIT#: [id number] LOC: [facility] [employer] Professor: Rossana Caballero M.D. ROOM/BED: [facility] : 85 AGE/SEX: 35/M ORD.Zay Parekh MD END OF REPORT [facility] ERC BILIARYon 02-19-2021 ERC BILIARY REMOVAL STONE [...] File ---- Signed By: Riaz Adkins MD [email or web address] Dictated: 02/19/2021 12:52 PM Signed: 02/19/2021 12:56 PM Reported By: RIAZ ADKINS M.D. Signed By: RIAZ ADKINS M.D. [facility] GEon 02-19-2021 GASTROENTEROLOGY REPORT [facility] REMOVAL STONE BILIARY DCT PE RCon [...] File ---- Signed By: Riaz Adkins MD [email or web address] Dictated: 02/19/2021 12:52 PM Signed: 02/19/2021 12:56 PM Reported By: RIAZ ADKINS M.D. Signed By: RIAZ ADKINS M.D. [facility] CT ABD/PELVIS W/ IV CONTRAST ONLYon 02-16-2021 [...] Sign Date: 02/16/2021 4:48:05 AM Ordering Provider:Rafael Boothe [facility] ([place] .Auto Diffon 02-15-2021 Ammonia (P) [Mass/Vol] 0.50 10 3/mcL Normal 0.15-1.00 [facility] [place] Comment on above: Performed By: #### C BC, ADIFF, ANEU, TROPHS, CMP, LIP #### [address] [address] #### GFR #### [address] [address] Basophils (Bld) [#/Vol] 0.00 10 3/mcL Normal 0.00-0.19 [facility] [place] Comment on above: Performed By: #### C BC, ADIFF, ANEU, TROPHS, CMP, LIP #### [address] [address] #### GFR #### [address] [address] Basophils/100 WBC (Bld) 0.7 % Normal 0.0-2.5 [facility] [place] Comment on above: Performed By: #### C BC, ADIFF, ANEU, TROPHS, CMP, LIP #### [address] [address] #### GFR #### [address] [address] Eosinophils (Bld) [#/Vol] 0.10 10 3/mcL Normal 0.00-0.40 [facility] [place] Comment on above: Performed By: #### C BC, ADIFF, ANEU, TROPHS, CMP, LIP #### [address] [address] #### GFR #### [address] [address] Eosinophils/100 WBC (Bld) 0.8 % Normal 0.0-7.0 [facility] ([place]) Comment on above: Performed By: #### C BC, ADIFF, ANEU, TROPHS, CMP, LIP #### [place] [address] #### GFR #### [address] [address] Lymphocytes (Bld) [#/Vol] 1.50 10 3/mcL Normal 0.77-3.85 [facility] ([place]) Comment on above: Performed By: #### C BC, ADIFF, ANEU, TROPHS, CMP, LIP #### [place] [address] #### GFR #### [address] [address] Lymphocytes/100 WBC (Bld) 22.6 % Normal 10.0-50.0 [facility] ([place]) Comment on above: Performed By: #### C BC, ADIFF, ANEU, TROPHS, CMP, LIP #### [place] [address] #### GFR #### [address] [address] Monocytes/100 WBC (Bld) 7.4 % Normal 1.7-13.0 [facility] ([place]) Comment on above: Performed By: #### C BC, ADIFF, ANEU, TROPHS, CMP, LIP #### [place] [address] #### GFR #### [address] [address] Neutrophils/100 WBC (Bld) 68.5 % Normal 37.0-80.0 [facility] ([place]) Comment on above: Performed By: #### C BC, ADIFF, ANEU, TROPHS, CMP, LIP #### [address] [address] #### GFR #### [address] [address] .GFRon 02-15-2021 GFR 89 ml/min/1.73sqm Normal [facility] ([place] Comment on above: Result Comment: GFR Population [...] BC, ADIFF, ANEU, TROPHS, CMP, LIP #### [address] [address] #### GFR #### [address] [address] GFR Non- 73 ml/min/1.73sqm Normal [facility] [place] Comment on above: Result Comment: GFR Population [...] BC, ADIFF, ANEU, TROPHS, CMP, LIP #### [address] [address] #### GFR #### [place] [address] .NEUABSon 02-15-2021 Neutrophils (Bld) [#/Vol] 4.50 10 3/mcL Normal 2.85-6.16 [facility] ([place] Comment on above: Performed By: #### C BC, ADIFF, ANEU, TROPHS, CMP, LIP #### [place] [address] #### GFR #### [place] [address] CBCon 02-15-2021 Erythrocyte distribution width (RBC) [Ratio] 13.1 % Normal 11.5-14.5 [facility] ([place] Comment on above: Performed By: #### C BC, ADIFF, ANEU, TROPHS, CMP, LIP #### [place] [address] #### GFR #### [place] [address] Hematocrit (Bld) [Volume fraction] 42.9 % Normal 42.0-52.0 [facility] ([place] Comment on above: Performed By: #### C BC, ADIFF, ANEU, TROPHS, CMP, LIP #### [place] [address] #### GFR #### [place] [address] Hemoglobin (Bld) [Mass/Vol] 15.1 G/dL Normal 14.0-18.0 [facility] ([place] Comment on above: Performed By: #### C BC, ADIFF, ANEU, TROPHS, CMP, LIP #### [place] [address] #### GFR #### [place] [address] MCH (RBC) [Entitic mass] 32.0 pg High 27.0-31.2 [facility] ([place] Comment on above: Performed By: #### C BC, ADIFF, ANEU, TROPHS, CMP, LIP #### [address] [address] #### GFR #### [address] [address] MCHC (RBC) [Mass/Vol] 35.3 G/dL Normal 31.8-35.4 [facility] ([place]) Comment on above: Performed By: #### C BC, ADIFF, ANEU, TROPHS, CMP, LIP #### [place] [address] #### GFR #### [address] [address] MCV (RBC) [Entitic vol] 90.8 fL Normal 80.0-94.0 [facility] ([place] Comment on above: Performed By: #### C BC, ADIFF, ANEU, TROPHS, CMP, LIP #### [place] [address] #### GFR #### [place] [address] Platelet mean volume (Bld) [Entitic vol] 8.5 fL Normal 7.4-10.4 [facility] ([place] Comment on above: Performed By: #### C BC, ADIFF, ANEU, TROPHS, CMP, LIP #### [place] [address] #### GFR #### [address] [address] Platelets (Bld) [#/Vol] 329 10 3/mcL Normal 130-400 [facility] ([place] Comment on above: Performed By: #### C BC, ADIFF, ANEU, TROPHS, CMP, LIP #### [place] [address] #### GFR #### [place] [id number] RBC (Bld) [#/Vol] 4.72 10 6/mcL Normal 4.04-6.13 [facility] ([place]) Comment on above: Performed By: #### C BC, ADIFF, ANEU, TROPHS, CMP, LIP #### [address] [address] #### GFR #### [address] [address] WBC (Bld) [#/Vol] 6.50 10 3/mcL Normal 4.60-10.80 [facility] ([place] Comment on above: Performed By: #### C BC, ADIFF, ANEU, TROPHS, CMP, LIP #### [place] [address] #### GFR #### [address] [address] CMPon 02-15-2021 Albumin [Mass/Vol] 4.2 G/dL Normal 3.5-5.0 [facility] ([place]) Comment on above: Performed By: #### C BC, ADIFF, ANEU, TROPHS, CMP, LIP #### [place] [address] #### GFR #### [address] [address] Albumin/Globulin [Mass ratio] 1.3 {ratio} Normal 1.1-2.5 [facility] ([place] Comment on above: Performed By: #### C BC, ADIFF, ANEU, TROPHS, CMP, LIP #### [place] [address] #### GFR #### [place] [address] ALP [Catalytic activity/Vol] 121 U/L Normal 40-135 [facility] ([place] Comment on above: Performed By: #### C BC, ADIFF, ANEU, TROPHS, CMP, LIP #### [place] [address] #### GFR #### [address] [address] ALT [Catalytic activity/Vol] 560 U/L High 16-63 [facility] ([place] Comment on above: Performed By: #### C BC, ADIFF, ANEU, TROPHS, CMP, LIP #### [address] [address] #### GFR #### [address] [address] AST [Catalytic activity/Vol] 316 U/L High 10-40 [facility] ([place] Comment on above: Performed By: #### C BC, ADIFF, ANEU, TROPHS, CMP, LIP #### [place] [address] #### GFR #### [address] [address] Bili Total 4.4 mg/dL High 0.2-1.0 [facility] ([place] Comment on above: Result Comment: Use of this assay is not recommended for patients undergoing treatment with eltrombopag due to the potential for falsely elevated results. Performed By: #### C BC, ADIFF, ANEU, TROPHS, CMP, LIP #### [place] [address] #### GFR #### [address] [address] Calcium [Mass/Vol] 9.4 mg/dL Normal 8.4-10.2 [facility] ([place] Comment on above: Performed By: #### C BC, ADIFF, ANEU, TROPHS, CMP, LIP #### [place] [address] #### GFR #### [address] [address] Chloride [Moles/Vol] 103 mmol/L Normal 98-107 [facility] ([place] Comment on above: Performed By: #### C BC, ADIFF, ANEU, TROPHS, CMP, LIP #### [place] [address] #### GFR #### [address] [address] CO2 [Moles/Vol] 27 mmol/L Normal 22-29 [facility] ([place] Comment on above: Performed By: #### C BC, ADIFF, ANEU, TROPHS, CMP, LIP #### [address] [address] #### GFR #### [address] [address] Creatinine [Mass/Vol] 1.14 mg/dL Normal 0.70-1.30 [facility] ([place] Comment on above: Performed By: #### C BC, ADIFF, ANEU, TROPHS, CMP, LIP #### [place] [address] #### GFR #### [address] [address] Electrolyte Balance 12.0 mEq/L Normal [facility] ([place]) Comment on above: Performed By: #### C BC, ADIFF, ANEU, TROPHS, CMP, LIP #### [address] [address] #### GFR #### [address] [address] Globulin (S) [Mass/Vol] 3.2 G/dL Normal [facility] ([place] Comment on above: Performed By: #### C BC, ADIFF, ANEU, TROPHS, CMP, LIP #### [address] [address] #### GFR #### [address] [address] Glucose [Mass/Vol] 98 mg/dL Normal 70-105 [facility] ([place] Comment on above: Performed By: #### C BC, ADIFF, ANEU, TROPHS, CMP, LIP #### [address] [address] #### GFR #### [address] [address] Potassium [Moles/Vol] 4.1 mmol/L Normal 3.5-5.1 [facility] ([place] Comment on above: Performed By: #### C BC, ADIFF, ANEU, TROPHS, CMP, LIP #### [address] [address] #### GFR #### [address] [address] Protein [Mass/Vol] 7.4 G/dL Normal 6.4-8.2 [facility] ([place] Comment on above: Performed By: #### C BC, ADIFF, ANEU, TROPHS, CMP, LIP #### [address] [address] #### GFR #### [address] [address] Sodium [Moles/Vol] 142 mmol/L Normal 136-145 [facility] ([place] Comment on above: Performed By: #### C BC, ADIFF, ANEU, TROPHS, CMP, LIP #### [address] [address] #### GFR #### [address] [address] Urea nitrogen [Mass/Vol] 11 mg/dL Normal 7-18 [facility] ([place] Comment on above: Performed By: #### C BC, ADIFF, ANEU, TROPHS, CMP, LIP #### [address] [address] #### GFR #### [address] [address] Urea nitrogen/Creatinine [Mass ratio] 10 ratio Normal 7-27 [facility] ([place] Comment on above: Performed By: #### C BC, ADIFF, ANEU, TROPHS, CMP, LIP #### [place] [address] #### GFR #### [address] [address] LIPon 02-15-2021 Lipase Level 112 U/L Normal 73-393 [facility] ([place] Comment on above: Performed By: #### C BC, ADIFF, ANEU, TROPHS, CMP, LIP #### [address] [address] #### GFR #### [place] [address] TROPHSon 02-15-2021 Troponin I High Sensitivity 4.8 ng/L Normal 0.0-76.2 [facility] ([place] Comment on above: Performed By: #### C BC, ADIFF, ANEU, TROPHS, CMP, LIP #### [facility] [address] [place], [place] [address] #### GFR #### [facility] [address] [place] [address] XR CHEST 2 VIEWSon 1 XR CHEST 2 VIEWS ORIGINAL XR CHEST [...] Sign Date: 02/15/2021 6:02:27 PM Ordering Provider:Rafael Boothe [facility] ([place]) Stool gastrointestinal hemog lobin detection by immunologic method Lower GI hemoglobin IA Ql (Stl) [facility] Work Phone: Vital Signs Date Time Vital Sign Value Performing Clinician Facility 07-11-2025 08:14040 Body height 193.[address] Drew Mayen MD Work Phone: [facility] 07-11-2025 08:140400 Body mass index (BMI) [Ratio] 39.3 kg/m2 Dr. Drew Mayen MD Work Phone: [facility] 07-11-2025 08:14-040 Body temperature 97.8 [degF] Dr. Drew Mayen MD Work Phone: [facility] 07-11-2025 08:14-0400 Body weight 146.[address] Drew Mayen MD Work Phone: [facility] 07-11-2025 08:14-0400 Diastolic blood pressure 72 mm[Hg] Dr. Drew Mayen MD Work Phone: [facility] 07-11-2025 08:14-0400 Heart rate 78 /min Dr. Drew Mayen MD Work Phone: [facility] 07-11-2025 08:14-0400 Respiratory rate 16 /min Dr. Drew Mayen MD Work Phone: [facility] 07-11-2025 08:14-0400 SaO2% (BldA) [Mass fraction] 97 % Dr. Drew Mayen MD Work Phone: [facility] 07-11-2025 08:14-0400 Systolic blood pressure 128 mm[Hg] Dr. Drew Mayen MD Work Phone: [facility] 05-09-2025 14:31-0400 Body height 193.[address] Drew Mayen MD Work Phone: [facility] 05-09-2025 14:31-0400 Body mass index (BMI) [Ratio] 39.8 kg/m2 Dr. Drew Mayen MD Work Phone: [facility] 05-09-2025 14:31-0400 Body temperature 97.8 [degF] Dr. Drew Mayen MD Work Phone: [facility] 05-09-2025 14:31-0400 Body weight 148.[address] Drew Mayen MD Work Phone: [facility] 05-09-2025 14:31-0400 Diastolic blood pressure 80 mm[Hg] Dr. Drew Mayen MD Work Phone: [facility] 05-09-2025 14:31-0400 Heart rate 96 /min Dr. Drew Mayen MD Work Phone: [facility] 05-09-2025 14:31-0400 Respiratory rate 18 /min Dr. Drew Mayen MD Work Phone: [facility] 05-09-2025 14:31-0400 SaO2% (BldA) [Mass fraction] 98 % Dr. Drew Mayen MD Work Phone: [facility] 05-09-2025 14:31-0400 Systolic blood pressure 142 mm[Hg] Dr. Drew Mayen MD Work Phone: [facility] 02-07-2025 13:41-0400 Body mass index (BMI) [Ratio] 39.2 kg/m2 Dr. Drew Mayen MD Work Phone: [facility] 02-07-2025 13:41-0400 Body temperature 98.6 [degF] Dr. Drew Mayen MD Work Phone: [facility] 02-07-2025 13:41-0400 Body weight 146.[address] Drew Mayen MD Work Phone: [facility] 02-07-2025 13:41-0400 Diastolic blood pressure 96 mm[Hg] Dr. Drew Mayen MD Work Phone: [facility] 02-07-2025 13:41-0400 Heart rate 96 /min Dr. Drew Mayen MD Work Phone: [facility] 02-07-2025 13:41-0400 Respiratory rate 14 /min Dr. Drew Mayen MD Work Phone: [facility] 02-07-2025 13:41-0400 SaO2% (BldA) [Mass fraction] 99 % Dr. Drew Mayen MD Work Phone: [facility] 02-07-2025 13:41-0400 Systolic blood pressure 144 mm[Hg] Dr. Drew Mayen MD Work Phone: [facility] 01-31-2025 18:37-0500 Body temperature 97.6 [degF] Dr. Drew Mayen MD Work Phone: [facility] 01-31-2025 18:37-0500 Diastolic blood pressure 85 mm[Hg] Dr. Drew Mayen MD Work Phone: [facility] 01-31-2025 18:37-0500 Heart rate 85 /min Dr. Drew Mayen MD Work Phone: [facility] 01-31-2025 18:37-0500 Respiratory rate 16 /min Dr. Drew Mayen MD Work Phone: [facility] 01-31-2025 18:37-0500 SaO2% (BldA) [Mass fraction] 97 % Dr. Drew Mayen MD Work Phone: [facility] 01-31-2025 18:37-0500 Systolic blood pressure 165 mm[Hg] Dr. Drew Mayen MD Work Phone: [facility] 01-31-2025 14:51-0500 Body mass index (BMI) [Ratio] 38.9 kg/m2 Dr. Drew Mayen MD Work Phone: [facility] 01-31-2025 14:51-0500 Body weight 145.[address] Drew Mayen MD Work Phone: [facility] 05-19-2024 09:45-0400 Body temperature 97.11 [degF] Vinnie Hernandez MD Work Phone: [facility] 05-19-2024 09:45-0400 Body weight 147 kg Vinnie Hernandez MD Work Phone: [facility] 05-19-2024 09:45-0400 Diastolic blood pressure 90 mm[Hg] Vinnie Hernandez MD Work Phone: [facility] 05-19-2024 09:45-0400 Heart rate 101 /min Vinnie Hernandez MD Work Phone: [facility] 05-19-2024 09:45-0400 Respiratory rate 18 /min Vinnie Hernandez MD Work Phone: [facility] 05-19-2024 09:45-0400 SaO2% (BldA) [Mass fraction] 98 % Vinnie Hernandez MD Work Phone: [facility] 05-19-2024 09:45-0400 Systolic blood pressure 144 mm[Hg] Vinnie Hernandez MD Work Phone: [facility] 02-16-2024 14:02-0400 Body height 193.[address] Drew Mayen Work Phone: [facility] 02-16-2024 14:02-0400 Body mass index (BMI) [Ratio] 39.2 kg/m2 Dr. Drew Mayen Work Phone: [facility] 02-16-2024 14:02-0400 Body temperature 97.8 [degF] Dr. Drew Mayen Work Phone: [facility] 02-16-2024 14:02-0400 Body weight 146.[address] Drew Mayen Work Phone: [facility] 02-16-2024 14:02-0400 Diastolic blood pressure 88 mm[Hg] Dr. Drew Mayen Work Phone: [facility] 02-16-2024 14:02-0400 Heart rate 94 /min Dr. Drew Mayen Work Phone: [facility] 02-16-2024 14:02-0400 Respiratory rate 17 /min Dr. Drew Mayen Work Phone: [facility] 02-16-2024 14:02-0400 SaO2% (BldA) [Mass fraction] 98 % Dr. Drew Mayen Work Phone: [facility] 02-16-2024 14:02-0400 Systolic blood pressure 144 mm[Hg] Dr. Drew Mayen Work Phone: [facility] 01-12-2024 09:46-0500 Body height 193.[address] Drew Mayen Work Phone: [facility] 01-12-2024 09:46-0500 Body mass index (BMI) [Ratio] 39.4 kg/m2 Dr. Drew Mayen Work Phone: [facility] 01-12-2024 09:46-0500 Body temperature 97.6 [degF] Dr. Drew Mayen Work Phone: [facility] 01-12-2024 09:46-0500 Body weight 146.[address] Drew Mayen Work Phone: [facility] 01-12-2024 09:46-0500 Diastolic blood pressure 92 mm[Hg] Dr. Drew Mayen Work Phone: [facility] 01-12-2024 09:46-0500 Heart rate 74 /min Dr. Drew Mayen Work Phone: [facility] 01-12-2024 09:46-0500 Respiratory rate 14 /min Dr. Drew Mayen Work Phone: [facility] 01-12-2024 09:46-0500 SaO2% (BldA) [Mass fraction] 96 % Dr. Drew Mayen Work Phone: [facility] 01-12-2024 09:46-0500 Systolic blood pressure 142 mm[Hg] Dr. Drew Mayen Work Phone: [facility] 01-10-2024 12:45-0500 Body temperature 97.4 [degF] Dr. Drew Mayen Work Phone: [facility] 01-10-2024 12:45-0500 Diastolic blood pressure 82 mm[Hg] Dr. Drew Mayen Work Phone: [facility] 01-10-2024 12:45-0500 Heart rate 86 /min Dr. Drew Mayen Work Phone: [facility] 01-10-2024 12:45-0500 Respiratory rate 16 /min Dr. Drew Mayen Work Phone: [facility] 01-10-2024 12:45-0500 SaO2% (BldA) [Mass fraction] 94 % Dr. Drew Mayen Work Phone: [facility] 01-10-2024 12:45-0500 Systolic blood pressure 124 mm[Hg] Dr. Drew Mayen Work Phone: [facility] 01-10-2024 10:30-0500 Inhaled oxygen flow rate 8 L/min Dr. Drew Mayen Work Phone: [facility] 01-10-2024 06:33-0500 Body height 193.[address] Drew Mayen Work Phone: [facility] 01-10-2024 06:33-0500 Body mass index (BMI) [Ratio] 39.2 kg/m2 Dr. Drew Mayen Work Phone: [facility] 01-10-2024 06:33-0500 Body weight [address] Drew Mayen Work Phone: [facility] 12-06-2023 15:01-0500 Body height 193.[address] Drew Mayen Work Phone: [facility] 12-06-2023 15:01-0500 Body mass index (BMI) [Ratio] 38.5 kg/m2 Dr. Drew Mayen Work Phone: [facility] 12-06-2023 15:01-0500 Body temperature 97.4 [degF] Dr. Drew Mayen Work Phone: [facility] 12-06-2023 15:01-0500 Body weight 143.[address] Drew Mayen Work Phone: [facility] 12-06-2023 15:01-0500 Diastolic blood pressure 84 mm[Hg] Dr. Drew Mayen Work Phone: [facility] 12-06-2023 15:01-0500 Heart rate 89 /min Dr. Drew Mayen Work Phone: [facility] 12-06-2023 15:01-0500 Respiratory rate 18 /min Dr. Drew Mayen Work Phone: [facility] 12-06-2023 15:01-0500 SaO2% (BldA) [Mass fraction] 97 % Dr. Drew Mayen Work Phone: [facility] 12-06-2023 15:01-0500 Systolic blood pressure 140 mm[Hg] Dr. Drew Mayen Work Phone: [facility] 11-17-2023 11:08-0500 Body temperature 98.1 [degF] Dr. Drew Mayen Work Phone: [facility] 11-17-2023 11:08-0500 Diastolic blood pressure 78 mm[Hg] Dr. Drew Mayen Work Phone: [facility] 11-17-2023 11:08-0500 Heart rate 86 /min Dr. Drew Mayen Work Phone: [facility] 11-17-2023 11:08-0500 Respiratory rate 16 /min Dr. Drew Mayen Work Phone: [facility] 11-17-2023 11:08-0500 SaO2% (BldA) [Mass fraction] 95 % Dr. Drew Mayen Work Phone: [facility] 11-17-2023 11:08-0500 Systolic blood pressure 143 mm[Hg] Dr. Drew Mayen Work Phone: [facility] 11-17-2023 09:35-0500 Body temperature 98.7 [degF] Dr. Drew Mayen Work Phone: [facility] 11-17-2023 09:35-0500 Diastolic blood pressure 82 mm[Hg] Dr. Drew Mayen Work Phone: [facility] 11-17-2023 09:35-0500 Heart rate 79 /min Dr. Drew Mayen Work Phone: [facility] 11-17-2023 09:35-0500 Respiratory rate 16 /min Dr. Drew Mayen Work Phone: [facility] 11-17-2023 09:35-0500 SaO2% (BldA) [Mass fraction] 97 % Dr. Drew Mayen Work Phone: [facility] 11-17-2023 09:35-0500 Systolic blood pressure 145 mm[Hg] Dr. Drew Mayen Work Phone: [facility] 11-17-2023 05:58-0500 Inhaled oxygen flow rate 2 L/min Dr. Drew Mayen Work Phone: [facility] 11-16-2023 15:26-0500 Body height 193.[address] Drew Mayen Work Phone: [facility] 11-16-2023 15:26-0500 Body mass index (BMI) [Ratio] 39.2 kg/m2 Dr. Drew Mayen Work Phone: [facility] 11-16-2023 15:26-0500 Body weight 146.[address] Drew Mayen Work Phone: [facility] 11-16-2023 13:20-0500 Diastolic blood pressure 84 mm[Hg] Dr. Drew Mayen Work Phone: [facility] 11-16-2023 13:20-0500 Heart rate 74 /min Dr. Drew Mayen Work Phone: [facility] 11-16-2023 13:20-0500 Respiratory rate 16 /min Dr. Drew Mayen Work Phone: [facility] 11-16-2023 13:20-0500 SaO2% (BldA) [Mass fraction] 98 % Dr. Drew Mayen Work Phone: [facility] 11-16-2023 13:20-0500 Systolic blood pressure 139 mm[Hg] Dr. Drew Mayen Work Phone: [facility] 11-16-2023 09:33-0500 Body height 193.[address] Drew Mayen Work Phone: [facility] 11-16-2023 09:33-0500 Body mass index (BMI) [Ratio] 39.4 kg/m2 Dr. Drew Mayen Work Phone: [facility] 11-16-2023 09:33-0500 Body temperature 97.8 [degF] Dr. Drew Mayen Work Phone: [facility] 11-16-2023 09:33-0500 Body weight 147.[address] Drew Mayen Work Phone: [facility] 10-11-2023 08:44-0500 Body height 193.[address] Drew Mayen Work Phone: [facility] 10-11-2023 08:44-0500 Body mass index (BMI) [Ratio] 38.7 kg/m2 Dr. Drew Mayen Work Phone: [facility] 10-11-2023 08:44-0500 Body temperature 97.4 [degF] Dr. Drew Mayen Work Phone: [facility] 10-11-2023 08:44-0500 Body weight 144.[address] Drew Mayen Work Phone: [facility] 10-11-2023 08:44-0500 Diastolic blood pressure 82 mm[Hg] Dr. Drew Mayen Work Phone: [facility] 10-11-2023 08:44-0500 Heart rate 82 /min Dr. Drew Mayen Work Phone: [facility] 10-11-2023 08:44-0500 Respiratory rate 16 /min Dr. Drew Mayen Work Phone: [facility] 10-11-2023 08:44-0500 SaO2% (BldA) [Mass fraction] 97 % Dr. Drew Mayen Work Phone: [facility] 10-11-2023 08:44-0500 Systolic blood pressure 130 mm[Hg] Dr. Drew Mayen Work Phone: [facility] 07-14-2023 10:05-0400 Body temperature 98.7 [degF] Dr. Drew Mayen Work Phone: [facility] 07-14-2023 10:05-0400 Body weight 140.[address] Drew Mayen Work Phone: [facility] 07-14-2023 10:05-0400 Diastolic blood pressure 94 mm[Hg] Dr. Drew Mayen Work Phone: [facility] 07-14-2023 10:05-0400 Heart rate 94 /min Dr. Drew Mayen Work Phone: [facility] 07-14-2023 10:05-0400 Respiratory rate 16 /min Dr. Drew Mayen Work Phone: [facility] 07-14-2023 10:05-0400 SaO2% (BldA) [Mass fraction] 96 % Dr. Drew Mayen Work Phone: [facility] 07-14-2023 10:05-0400 Systolic blood pressure 142 mm[Hg] Dr. Drew Mayen Work Phone: [facility] 07-09-2023 13:21-0400 Body height 193.[address] Drew Mayen Work Phone: [facility] 07-09-2023 13:21-0400 Body mass index (BMI) [Ratio] 38 kg/m2 Dr. Drew Mayen Work Phone: [facility] 07-09-2023 13:21-0400 Body temperature 98.8 [degF] Dr. Drew Mayen Work Phone: [facility] 07-09-2023 13:21-0400 Body weight 141.[address] Drew Mayen Work Phone: [facility] 07-09-2023 13:21-0400 Diastolic blood pressure 88 mm[Hg] Dr. Drew Mayen Work Phone: [facility] 07-09-2023 13:21-0400 Heart rate 69 /min Dr. Drew Mayen Work Phone: [facility] 07-09-2023 13:21-0400 Respiratory rate 16 /min Dr. Drew Mayen Work Phone: [facility] 07-09-2023 13:21-0400 SaO2% (BldA) [Mass fraction] 98 % Dr. Drew Mayen Work Phone: [facility] 07-09-2023 13:21-0400 Systolic blood pressure 148 mm[Hg] Dr. Drew Mayen Work Phone: [facility] 06-07-2023 13:32-0400 Body mass index (BMI) [Ratio] 38.2 kg/m2 Dr. Drew Mayen Work Phone: [facility] 06-07-2023 13:32-0400 Body temperature 97.9 [degF] Dr. Drew Mayen Work Phone: [facility] 06-07-2023 13:32-0400 Body weight 142.[address] Drew Mayen Work Phone: [facility] 06-07-2023 13:32-0400 Diastolic blood pressure 96 mm[Hg] Dr. Drew Mayen Work Phone: [facility] 06-07-2023 13:32-0400 Heart rate 94 /min Dr. Drew Mayen Work Phone: [facility] 06-07-2023 13:32-0400 Respiratory rate 18 /min Dr. Drew Mayen Work Phone: [facility] 06-07-2023 13:32-0400 SaO2% (BldA) [Mass fraction] 96 % Dr. Drew Mayen Work Phone: [facility] 06-07-2023 13:32-0400 Systolic blood pressure 140 mm[Hg] Dr. Drew Mayen Work Phone: [facility] 06-01-2023 09:35-0400 Body temperature 98.4 [degF] Dr. Drew Mayen Work Phone: [facility] 06-01-2023 09:35-0400 Diastolic blood pressure 80 mm[Hg] Dr. Drew Mayen Work Phone: [facility] 06-01-2023 09:35-0400 Heart rate 93 /min Dr. Drew Mayen Work Phone: [facility] 06-01-2023 09:35-0400 Respiratory rate 17 /min Dr. Drew Mayen Work Phone: [facility] 06-01-2023 09:35-0400 SaO2% (BldA) [Mass fraction] 98 % Dr. Drew Mayen Work Phone: [facility] 06-01-2023 09:35-0400 Systolic blood pressure 138 mm[Hg] Dr. Drew Mayen Work Phone: [facility] 06-01-2023 06:00-0400 Body mass index (BMI) [Ratio] 39.6 kg/m2 Dr. Drew Mayen Work Phone: [facility] 06-01-2023 06:00-0400 Body weight 147.[address] Drew Mayen Work Phone: [facility] 05-31-2023 13:56-0400 Body height 193.[address] Drew Mayen Work Phone: [facility] 05-30-2023 02:55-0400 Body temperature 99.2 [degF] Dr. Drew Mayen Work Phone: [facility] 05-30-2023 02:55-0400 Diastolic blood pressure 79 mm[Hg] Dr. Drew Mayen Work Phone: [facility] 05-30-2023 02:55-0400 Heart rate 97 /min Dr. Drew Mayen Work Phone: [facility] 05-30-2023 02:55-0400 Respiratory rate 16 /min Dr. Drew Mayen Work Phone: [facility] 05-30-2023 02:55-0400 SaO2% (BldA) [Mass fraction] 99 % Dr. Drew Mayen Work Phone: [facility] 05-30-2023 02:55-0400 Systolic blood pressure 146 mm[Hg] Dr. Drew Mayen Work Phone: [facility] 05-29-2023 22:14-0400 Body height 193.[address] Drew Mayen Work Phone: [facility] 05-29-2023 22:14-0400 Body mass index (BMI) [Ratio] 39.2 kg/m2 Dr. Drew Mayen Work Phone: [facility] 05-29-2023 22:14-0400 Body weight 146.[address] Drew Mayen Work Phone: [facility] 04-12-2023 08:50-0400 Body mass index (BMI) [Ratio] 38 kg/m2 Dr. Drew Mayen Work Phone: [facility] 04-12-2023 08:50-0400 Body temperature 97.8 [degF] Dr. Drew Mayen Work Phone: [facility] 04-12-2023 08:50-0400 Body weight 141.[address] Drew Mayen Work Phone: [facility] 04-12-2023 08:50-0400 Diastolic blood pressure 82 mm[Hg] Dr. Drew Mayen Work Phone: [facility] 04-12-2023 08:50-0400 Heart rate 85 /min Dr. Drew Mayen Work Phone: [facility] 04-12-2023 08:50-0400 Respiratory rate 12 /min Dr. Drew Mayen Work Phone: [facility] 04-12-2023 08:50-0400 SaO2% (BldA) [Mass fraction] 96 % Dr. Drew Mayen Work Phone: [facility] 04-12-2023 08:50-0400 Systolic blood pressure 146 mm[Hg] Dr. Drew Mayen Work Phone: [facility] 03-08-2023 11:07-0400 Body mass index (BMI) [Ratio] 38 kg/m2 Dr. Drew Mayen Work Phone: [facility] 03-08-2023 11:07-0400 Body temperature 98.1 [degF] Dr. Drew Mayen Work Phone: [facility] 03-08-2023 11:07-0400 Body weight 141.[address] Drew Mayen Work Phone: [facility] 03-08-2023 11:07-0400 Diastolic blood pressure 82 mm[Hg] Dr. Drew Mayen Work Phone: [facility] 03-08-2023 11:07-0400 Heart rate 77 /min Dr. Drew Mayen Work Phone: [facility] 03-08-2023 11:07-0400 Respiratory rate 14 /min Dr. Drew Mayen Work Phone: [facility] 03-08-2023 11:07-0400 SaO2% (BldA) [Mass fraction] 97 % Dr. Drew Mayen Work Phone: [facility] 03-08-2023 11:07-0400 Systolic blood pressure 128 mm[Hg] Dr. Drew Mayen Work Phone: [facility] 11-24-2022 13:28-0500 Body temperature 97.9 [degF] Dr. Drew Mayen Work Phone: [facility] Work Phone: 11-24-2022 13:28-0500 Diastolic blood pressure 74 mm[Hg] Dr. Drew Mayen Work Phone: [facility] Work Phone: 11-24-2022 13:28-0500 Heart rate 97 /min Dr. Drew Mayen Work Phone: [facility] Work Phone: 11-24-2022 13:28-0500 Respiratory rate 16 /min Dr. Drew Mayen Work Phone: [facility] Work Phone: 11-24-2022 13:28-0500 SaO2% (BldA) [Mass fraction] 98 % Dr. Drew Mayen Work Phone: [facility] Work Phone: 11-24-2022 13:28-0500 Systolic blood pressure 146 mm[Hg] Dr. Drew Mayen Work Phone: [facility] Work Phone: 11-24-2022 05:58-0500 Body weight 142.[address] Drew Mayen Work Phone: [facility] Work Phone: 11-23-2022 22:54-0500 Body height 193.[address] Drew Mayen Work Phone: [facility] Work Phone: 11-23-2022 22:54-0500 Body mass index (BMI) [Ratio] 38.8 kg/m2 Dr. Drew Mayen Work Phone: [facility] Work Phone: 11-23-2022 22:24-0500 Body temperature 97.6 [degF] [facility] Work Phone: 11-23-2022 22:24-0500 Diastolic blood pressure 79 mm[Hg] [facility] Work Phone: 11-23-2022 22:24-0500 Heart rate 100 /min [facility] Work Phone: 11-23-2022 22:24-0500 Respiratory rate 17 /min [facility] Work Phone: 11-23-2022 22:24-0500 SaO2% (BldA) [Mass fraction] 98 % [facility] Work Phone: 11-23-2022 22:24-0500 Systolic blood pressure 143 mm[Hg] [facility] Work Phone: 11-23-2022 19:45-0500 Body height 193.04 cm [facility] Work Phone: 11-23-2022 19:45-0500 Body mass index (BMI) [Ratio] 38.3 kg/m2 [facility] Work Phone: 11-23-2022 19:45-0500 Body weight 142.88 kg [facility] Work Phone: 04-29-2022 07:57-0400 Body mass index (BMI) [Ratio] 37.15 kg/m2 Trinidad Weems MD Work Phone: [facility] 04-29-2022 07:57-0400 Body weight 138.44 kg Trinidad Weems MD Work Phone: [facility] 02-04-2022 11:34-0500 Body temperature 96.69 [degF] Trinidad Weems MD Work Phone: [facility] 02-04-2022 11:34-0500 Diastolic blood pressure 94 mm[Hg] Trinidad Weems MD Work Phone: [facility] 02-04-2022 11:34-0500 Heart rate 130 /min Trinidad Weems MD Work Phone: [facility] 02-04-2022 11:34-0500 Respiratory rate 16 /min Trinidad Weems MD Work Phone: [facility] 02-04-2022 11:34-0500 Systolic blood pressure 152 mm[Hg] Trinidad Weems MD Work Phone: [facility] Encounters Encounter Date Encounter Type Care Provider Facility Start: 10-09-2025 Evaluation and management of inpatient Suzi Castaneda Facility:[facility] Start: 10-09-2025 ambulatory Suzi Castaneda Facility :[facility] Start: 07-11-2025 End: 07-11-[address] Drew Mayen MD -[facility] Work Phone: Start: 07-11-2025 End: 07-11-[address] Drew Mayen MD Work Phone: -[facility] Start: 05-09-2025 End: 05-09-[address] Drew Mayen MD -[facility] Work Phone: Start: 05-09-2025 End: 05-09-[address] Drew Mayen MD Work Phone: [facility] Work Phone: Start: 02-07-2025 End: 02-07-2025 Patient encounter procedure Telly SORIANO -[facility] Work Phone: Start: 02-07-2025 End: 02-07-2025 ambulatory Drew Mayen Facility:[facility] Start: 01-31-2025 End: 01-31-2025 Emergency department patient visit Dr. Ruiz Schwartz MD -Emergency Department Work Phone: Start: 05-19-2024 End: 05-19-2024 ambulatory DREW MAYEN Facility:[facility] Start: 05-19-2024 End: 05-19-2024 Patient encounter procedure Vinnie Hernandez MD Work Phone: [facility] Comment on above: Acute otitis media, right (Primary Dx) Start: 02-18-2024 End: 02-18-[address] Drew Mayen Work Phone: [facility] Work Phone: Start: 02-18-2024 End: 02-18-[address] Drew Mayen Work Phone: [facility] Work Phone: Start: 02-16-2024 End: 02-16-[address] Drew Mayen Work Phone: [facility] Work Phone: Start: 02-09-2024 End: 02-09-[address] Drew Mayen Work Phone: [facility] Work Phone: Start: 01-19-2024 End: 01-19-[address] Drew Mayen Work Phone: [facility] Work Phone: Start: 01-12-2024 End: 01-12-[address] Drew Mayen Work Phone: [facility] Work Phone: Start: 01-12-2024 End: 01-12-[address] Drew Mayen Work Phone: [facility] Work Phone: Start: 01-10-2024 Non-patient / Non-visit Dr. Zayra Mayen Work Phone: [facility] Start: 01-10-2024 End: 01-10-2024 Admission to same day surgery center Dr. Drew Mayen Work Phone: [facility] Start: 01-10-2024 End: 01-10-[address] Drew Mayen Work Phone: [facility] Work Phone: Start: 12-06-2023 End: 12-06-[address] Drew Mayen Work Phone: [facility] Work Phone: Start: 12-06-2023 End: 12-06-[address] Drew Mayen Work Phone: [facility] Work Phone: Start: 11-17-2023 Non-patient / Non-visit Dr. Zayra Mayen Work Phone: [facility] Start: 11-16-2023 Non-patient / Non-visit Dr. Zayra Mayen Work Phone: [facility] Start: 11-16-2023 End: 11-17-2023 Evaluation and management of inpatient Dr. Drew Mayen Work Phone: [facility] Work Phone: Start: 11-16-2023 End: 11-17-[address] Drew Mayen Work Phone: [facility] Work Phone: Start: 10-11-2023 End: 10-11-[address] Drew Mayen Work Phone: [facility] Work Phone: Start: 10-11-2023 End: 10-11-[address] Drew Mayen Work Phone: [facility] Work Phone: Start: 07-21-2023 Non-patient / Non-visit Dr. Zayra Mayen Work Phone: [facility] Start: 07-21-2023 End: 07-21-[address] Drew Mayen Work Phone: [facility] Work Phone: Start: 07-21-2023 End: 07-21-[address] [facility] Start: 07-14-2023 End: 07-14-[address] Drew Mayen Work Phone: [facility] Work Phone: Start: 07-09-2023 End: 07-09-[address] Drew Mayen Work Phone: [facility] Work Phone: Start: 06-07-2023 End: 06-07-[address] Drew Mayen Work Phone: [facility] Work Phone: Start: 06-01-2023 Non-patient / Non-visit Dr. Zayra Mayen Work Phone: [facility] Work Phone: Start: 05-31-2023 Non-patient / Non-visit Dr. Zayra Mayen Work Phone: [facility] Work Phone: Start: 05-30-2023 Non-patient / Non-visit Dr. Zayra Mayen Work Phone: [facility] Start: 05-30-2023 End: 06-01-2023 Evaluation and management of inpatient Dr. Drew Mayen Work Phone: [facility]Progressive [facility] Unit Work Phone: Start: 05-29-2023 End: 05-30-2023 Emergency department patient visit Dr. Drew Mayen Work Phone: [facility]Emergency Department Work Phone: Start: 05-25-[address] Davy Mayen Work Phone: [facility] Work Phone: Start: 04-12-2023 End: 04-12-[address] Drew Mayen Work Phone: [facility] Work Phone: Start: 03-08-2023 End: 03-08-[address] Drew Mayen Work Phone: [facility] Work Phone: Start: 11-24-2022 Non-patient / Non-visit Dr. Zayra Mayen Work Phone: [facility] Start: 11-23-2022 End: 11-24-2022 Evaluation and management of inpatient [facility]Intensive Care [facility] Start: 11-23-2022 End: 11-24-[address] Drew Mayen Work Phone: [facility] Work Phone: Start: 04-29-2022 ambulatory TRINIDAD WEEMS Facility :[facility] Start: 04-29-2022 End: 04-29-2022 Postop follow up visit related to original px Trinidad Weems MD Work Phone: [facility] Comment on above: Malignant melanoma o f right lower extremity including hip (Primary Dx) Start: 03-18-2022 ambulatory TRINIDAD WEEMS Facility :[facility] Start: 03-18-2022 End: 03-18-2022 Patient encounter procedure Trinidad Weems MD Work Phone: [facility] Comment on above: S/P split thickness skin graft (Primary Dx); Encounter for follow-up; Malignant melanoma of right lower extremity including hip Start: 02-25-2022 ambulatory DREW Lamas lity:[facility] Start: 02-18-2022 ambulatory DREW Lamas lity:[facility] Start: 02-10-2022 End: 02-10-2022 ambulatory DREW PAULE Facility:[facility] Start: 02-04-2022 ambulatory DREW MAYEN Faci lity:[facility] Start: 02-04-2022 End: 02-04-2022 Patient encounter procedure Trinidad Weems MD Work Phone: [facility] Comment on above: Malignant melanoma, unspecified site (Primary Dx) Start: 01-28-2022 ambulatory TALISHABE Johny PAULE Faci lity:[facility] Start: 01-23-2022 End: 01-23-2022 ambulatory TALISHABE Johny PAULE Facility:[facility] Start: 01-08-2022 Evaluation and management of inpatient EFFRANBE Johny PAULE Facility:[facility] Start: 01-07-2022 ambulatory SELF SELF Facility:[facility] Start: 01-07-2022 ambulatory TALISHABE Johny PAULE Faci lity:[facility] Start: 01-06-2022 ambulatory TRINIDAD WEEMS Facility :[facility] Start: 12-26-2021 End: 12-26-2021 ambulatory DREW MAYEN Facility:[facility] Start: 12-24-2021 ambulatory TALISHABE Johny PAULE Faci lity:[facility] Start: 12-10-2021 ambulatory JOSE JUDD Facility: [facility] Start: 12-10-2021 ambulatory DREW PAULE Faci lity:[facility] Procedures Date Procedure Procedure Detail Performing Clinician Start: 01-31-[address] Drew Mayen MD Work Phone: Start: 02-18-2024 Diagnostic radiograp hy of abdomen Dr. Drew Mayen Work Phone: Start: 01-10-2024 Lap Robotic Umb/Vent ral Hernia (Not Applicable) Dr. Drew Myaen Work Phone: Start: 12-06-2023 Nasal Screen MRSA/MSSA [...] Date Care Activity Detail Author Start: 01-31-2025 [facility] Start: 07-30-2024 Influenza vaccination Influenza Vaccine (Season Ended) [facility] Start: 01-10-2024 Anesthesia hernia repair lower abdomen nos ANESTH REPAIR OF HERNIA [facility] Start: 01-10-2024 RPR AA HRN 1ST < 3 CM RDC RPR AA HRN 1ST < 3 CM RDC [facility] Start: 01-10-2024 Patient discharge [facility] Start: 11-29-2023 Behavioral Health Screening Behavioral Health Screening [facility] Start: 11-17-2023 Patient discharge [facility] Start: 11-17-2023 Blood chemistry [facility] Start: 11-16-2023 Laparoscopic appendectomy Laparoscopic, Appendectomy (Not Applicable) [facility] Start: 11-16-2023 Application of intermittent pneumatic compression device [facility] Start: 11-16-2023 Following clinical pathway protocol [facility] Start: 11-16-2023 Anesthesia intraperitoneal lower abd w/laps nos ANESTH SURG LOWER ABDOMEN [facility] Start: 11-16-2023 Laparoscopic appendectomy LAPAROSCOPY APPENDECTOMY [facility] Start: 11-16-2023 Ambulation without limitation [facility] Start: 11-16-2023 Assessment of risk of venous thromboembolism [facility] Start: 11-16-2023 Incentive spirometry [facility] Start: 11-16-2023 Insertion of catheter into peripheral vein [facility] Start: 11-16-2023 Oxygen therapy [facility] Start: 11-16-2023 Preoperative care [facility] Start: 11-16-2023 Providing care according to standard [facility] Start: 11-16-2023 [facility] Start: 11-16-2023 Verification routine [facility] Start: 11-16-2023 Admission procedure [facility] Start: 07-30-2023 Covid-19 Vaccine () Covid-19 Vaccine () [facility] Start: 06-07-2023 Patient referral [facility] Work Phone: Start: 06-01-2023 Patient discharge [facility] Start: 05-31-2023 Provision of activity privileges [facility] Start: 05-31-2023 [facility] Start: 05-30-2023 Following clinical pathway protocol [facility] Start: 05-30-2023 Assessment of risk of venous thromboembolism [facility] Start: 05-30-2023 Continuous positive airway pressure ventilation treatment [facility] Start: 05-30-2023 Elevation of affected extremity [facility] Start: 05-30-2023 Inhalation therapy procedure [facility] Start: 05-30-2023 Insertion of catheter into peripheral vein [facility] Start: 05-30-2023 Introduction of urinary catheter [facility] Start: 05-30-2023 Measuring intake and output [facility] Start: 05-30-2023 Oxygen therapy [facility] Start: 05-30-2023 Providing care according to standard [facility] Start: 05-30-2023 Provision of activity privileges [facility] Start: 05-30-2023 Referral to service [facility] Start: 05-30-2023 End: 05-30-2023 [facility] Start: 05-30-2023 Admission procedure [facility] Start: 05-29-2023 Bacteria identified in Blood by Culture Blood Culture [facility] Start: 05-29-2023 Blood culture [facility] Start: 12-10-2022 Potassium [Moles/volume] in Serum or Plasma POTASSIUM [facility] Start: 11-24-2022 Patient discharge [facility] Work Phone: Start: 11-23-2022 Following clinical pathway protocol [facility] Work Phone: Start: 11-23-2022 Assessment of risk of venous thromboembolism [facility] Work Phone: Start: 11-23-2022 Continuous positive airway pressure ventilation treatment [facility] Work Phone: Start: 11-23-2022 Elevation of affected extremity [facility] Work Phone: Start: 11-23-2022 Inhalation therapy procedure [facility] Work Phone: Start: 11-23-2022 Insertion of catheter into peripheral vein [facility] Work Phone: Start: 11-23-2022 Introduction of urinary catheter [facility] Work Phone: Start: 11-23-2022 Measuring intake and output [facility] Work Phone: Start: 11-23-2022 Oxygen therapy [facility] Work Phone: Start: 11-23-2022 Providing care according to standard [facility] Work Phone: Start: 11-23-2022 Provision of activity privileges [facility] Work Phone: Start: 11-23-2022 End: 11-23-2022 [facility] Work Phone: Start: 11-23-2022 Admission procedure [facility] Work Phone: Start: 11-23-2022 Verification routine [facility] Work Phone: Start: 11-23-2022 Blood chemistry [facility] Work Phone: Start: 11-23-2022 End: 11-23-2022 Blood culture [facility] Work Phone: Start: 11-23-2022 [facility] Work Phone: Start: 07-30-2022 Influenza vaccination INFLUENZA VACCINE (Season Ended) [facility] Start: 04-29-2022 End: 04-29-2022 Patient encounter procedure 04/29/2022 Office Visit Plastic Surgery Trinidad Weems MD [address] [facility] [address] [place] [address] Plastic [facility] [place] Start: 02-25-2022 End: 02-25-2022 Patient encounter procedure 02/25/2022 Office Visit Plastic Surgery Trinidad Weems MD [address] [facility] 0 [place] [address] Plastic [facility] Eye [facility] Start: 09-10-2021 COVID-19 VACCINE (3 - Booster for Pfizer series) COVID-19 VACCINE (3 - Booster for Pfizer series) [facility] Start: 07-30-2021 Influenza vaccination INFLUENZA VACCINE (#1) [facility] Start: 2020 Lipid panel Lipid Screening [facility] Start: 2004 Third diphtheria, tetanus and acellular pertussis (DTaP) vaccination TDAP (ADULT) [facility] Start: 02-23-2004 Urine microalbumin profile DTaP,Tdap,Td Vaccine (6 - Tdap) [facility] Start: 2003 Hepatitis C screening Hepatitis C Screening [facility] Start: 2003 HIV screening HIV Screening [facility] Start: 2003 Tetanus vaccination TETANUS [facility] Start: 2000 HIV screening HIV SCREENING DISCUSSION [facility] Start: 1985 Hepatitis C antibody, confirmatory test HEPATITIS C VIRUS SCREENING [facility] Anion gap measurement [facility] Work Phone: Anion gap measurement [facility] Bacteria identified in Blood by Culture Blood Culture [facility] Work Phone: Blood chemistry [facility] Blood culture [facility] Work Phone: BUN/Creatinine ratio [facility] Work Phone: BUN/Creatinine ratio [facility] Calcium [Mass/volume ] in Serum or Plasma [facility] Work Phone: Calcium [Mass/volume ] in Serum or Plasma [facility] Carbon dioxide, tota l [Moles/volume] in Serum or Plasma [facility] Work Phone: Carbon dioxide, tota l [Moles/volume] in Serum or Plasma [facility] Chloride [Moles/volu me] in Serum or Plasma [facility] Work Phone: Chloride [Moles/volu me] in Serum or Plasma [facility] Comprehensive metabo lic 2000 panel - Serum or Plasma [facility] Creatinine [Moles/vo lume] in Serum or Plasma [facility] Work Phone: Creatinine [Moles/vo lume] in Serum or Plasma [facility] Glucose [Mass/volume ] in Serum or Plasma [facility] Work Phone: Glucose [Mass/volume ] in Serum or Plasma [facility] Hematocrit [Volume Fraction] of Blood [facility] Hemoglobin [Mass/vol ume] in Blood [facility] Lactic acid measurement [facility] Leukocytes [#/volume ] in Blood [facility] Lipid 1996 panel - S segun or Plasma [facility] Mean corpuscular hemoglobin concentration determination [facility] Mean corpuscular hemoglobin determination [facility] Measurement of renal function [facility] Work Phone: Measurement of renal function [facility] Neutrophil count [facility] Neutrophil percent differential count [facility] Patient Education ED Cellulitis [facility] Work Phone: Patient referral [facility] Work Phone: Platelets [#/volume] in Blood [facility] Potassium [Moles/vol ume] in Serum or Plasma [facility] Work Phone: Potassium [Moles/vol ume] in Serum or Plasma [facility] Red blood cell count [facility] Red cell distributio n width determination [facility] Sodium [Moles/volume ] in Serum or Plasma [facility] Work Phone: Sodium [Moles/volume ] in Serum or Plasma [facility] Urea nitrogen [Mass/volume] in Serum or Plasma [facility] Work Phone: Urea nitrogen [Mass/volume] in Serum or Plasma [facility] Immunizations Immunization Date Immunization Notes Care Provider Denis washburn 11-24-2022 influenza, injectabl e, quadrivalent, preservative free Dr. Drew Mayen Work Phone: [facility] 11-24-2022 influenza, seasonal, injectable Dr. Drew Mayen Work Phone: [facility] 11-24-2022 influenza virus vaccine, unspecified formulation Vinnie Hernandez MD Work Phone: [facility] 04-10-2021 COVID-19 vaccine, MR GRIFFITHS, oLuis, 0.3 ML Trinidad Weems MD Work Phone: [facility] 03-20-2021 COVID-19 vaccine, MR GRIFFITHS, Louis, 0.3 ML Trinidad Weems MD Work Phone: [facility] Payers Date Payer Category Payer Self-pay [id number] 2025 Unknown [id number] 2018 Private Health Insurance [id number] 1.315 2018 Unknown [id number] 2018 Unknown [id number] 1985 Unknown [id number] 2..840.1.197421.3.579.2.594 1985 Unknown [id number] 2..840.1.562173.3.579.2.594 1985 Unknown [id number] 2.16.840.1.365186.3.579.2.594 1985 Unknown [id number] 2.16.840.1.621289.3.579.2.594 1985 Unknown [id number] 2.16.840.1.444555.3.579.2.594 1985 Unknown [id number] 2.16.840.1.291221.3.579.2.594 1985 Unknown [id number] 2.16.840.1.599759.3.579.2.594 1985 Unknown [id number] 2.16.840.1.183967.3.579.2.594 1985 Unknown [id number] 2.16.840.1.611127.3.579.2.594 1985 Unknown [id number] 2.16.840.1.560885.3.579.2.594 1985 Unknown [id number] 2.840.1.115330.3.579.2.594 1985 Unknown [id number] 2.16840.1.726309.3.579.2.594 1985 Unknown [id number] 2.16840.1.976147.3.579.2.594 1985 Unknown [id number] 2.16.840.1.533575.3.579.2.594 1985 Unknown [id number] 2.16840.1.078375.3.579.2.594 1985 Unknown [id number] 2.16840.1.146945.3.579.2.594 1985 Unknown [id number] 2.16840.1.467696.3.579.2.594 1985 Unknown [id number] 2.16840.1.615097.3.579.2.594 1985 Unknown [id number] 2.16840.1.180378.3.579.2.594 Unknown [facility] [id number] 3 Unknown [id number] 2.16.840.1.136052.3.579.2.462 Unknown [id number] 2.16.840.1.017307.3.579.2.462 Unknown [id number] 2.16.840.1.272627.3.579.2.462 Unknown [id number] 2.16.840.1.815842.3.579.2.462 Unknown [id number] 2.16.840.1.745950.3.579.2.462 Unknown [id number] 2.16.840.1.186921.3.579.2.462 Unknown [id number] 2.16.840.1.223992.3.579.2.462 Social History Date Type Detail Facility Start: 12-10-2021 End: 01-31-2025 Tobacco smoking status NHIS Never smoked tobacco [facility] Start: 12-10-2021 End: 05-19-2024 Tobacco use and exposure Smokeless tobacco non-user [facility] Start: 02-04-2022 End: 04-29-2022 Alcohol intake Lifetime non-drinker (finding) [facility] Start: 12-10-2021 History SDOH Alcohol Frequency 1 [facility] Start: 1985 Sex Assigned At Not on file O [facility] Start: 02-09-2022 End: 02-19-2022 Exposure to SARS-CoV-2 (event) Unable to assess [facility] Start: 02-15-2022 End: 02-25-2022 Exposure to SARS-CoV-2 (event) Not sure [facility] Start: 11-23-2022 End: 02-16-2024 Tobacco smoking status NHIS Unknown if ever smoked [facility] Start: 1985 Sex Assigned At Male [facility] Start: 05-19-2024 History of Social function [facility] Start: 05-19-2024 Tobacco use panel [facility] Medical Equipment Procedure Code Equipment Code Equipment Origin al Text Equipment Identifier Dates Appendectomy, laparoscopic Surgical staple loading unit, non-cutting [id number] FDA Start: 11-16-2023 Dressing Wound 5x4in 2 Layer Matrix Bovine Collagen - [id number] Start: 01-23-2022 ([id number]) Extra-gynaecolog ic al surgical mesh, composite-polymer [id number] FDA Start: 01-10-2024 Goals Date Patient Goal [...] dressing supplies and how to obtain them. [facility] provided Riaz and caregiver with wound care education related to the above. Functional Status Date Assessment Result Facility 11-17-2023 Functional status [facility] Work Phone: 06-01-2023 Functional status [facility] Work Phone: 11-24-2022 Functional status [facility] Work Phone: Mental Status Date Assessment Result Facility 01-10-2024 Cognitive function Level Of Consciousness Sedated [facility] Work Phone: 01-10-2024 Cognitive function Voice/Name [facility] Work Phone: 11-17-2023 Cognitive function Voice/Name [facility] Work Phone: 06-01-2023 Cognitive function Voice/Name [facility] Work Phone: Clinical Notes 02-19-2021 to 05-09-2025 Note Date & Type Note Facility 05-09-2025 Evaluation note Diagnosis Onset Date Resolution Dermatitis chronic May 09 2:23pm Hypertension chronic May 09 025 2:23pm [facility] Work Phone: 1([phone]) 266-381903-12-2025 Evaluation note* Diagnosis Onset Date Resolution Status Admit Date Allergic urticaria acute February 07, 2025 1:25pm Hypertension chronic February 07, 2025 1:25pm [facility] Work Phone: 1([phone]) [phone] NoteHNO ID: [id number] Author: VINNIE HERNANDEZ MD Service: ? Author [...] Date APPENDECTOMY INGUINAL HERNIA REPAIR HX Bilateral infant LASIK REMOVAL GALLBLADDER MEDICATIONS: Current Outpatient Medications [...] evaluation of chronic ear eczema. Vinnie Hernandez, [facility]06-21-2024 History of Present illness Narrative* Vinnie [...] eczema. Vinnie Hernandez MD [facility] History and physical note Author Trinidad Nicolas [facility] January 10, 2024 7:37am Note Date/Time January 10, 2024 7:36am [facility] Medical Records Department [address] [place] [address] History & Physical Exam 01/10/24 0736 MR#: [id number] Acct: [id number] Name: DIOPRIAZ SAMMY Rep #:[id number] : 1985 38 From: Trinidad Mcfadden PCP: Dr. Drew Mayen MD Status:[facility] Location: [place] [address] History and Physical Date of Admission: 01/10/24 Date of Service: 12/06/23 MR#: [id number] Acct: [id number] Name: RIZA DIOP Rep #: [id number] : 1985 Provider: Dr. Trinidad Nicolas MD Age/Sex: 38/M Location: [facility] Status: Signed Intake Vital Signs 11/16/2315:26 12/06/2414:01 [...] the first time with Dr. Prado of [facility]. He confirms that although he was tested for an infectious cause for his history of right leg cellulitis no infection was ever detected. To this end he denies any history of boils. He shares that his blood sugars have been somewhat erratic in the past, but that when tested for diabetes through a A1c screening is number was perfect. He confirms that he is a non-smoker. [...] well as a consultation visit [facility] Medical History Asthma Congenital absence [...] detail above. 01/10/24 0737 <Electronically signed by Tirnidad Nicolas MD> Cosigner Signature (if applicable): CC: Dr. Drew Mayen MD; Dr. Trinidad Nicolas MD~ Signed [facility] Work Phone: 1(891) 741-959712-20-2023 Progress note Author Joann Cheng [facility] November 17, 2023 9:23am Note Date/Time November 17, 2023 9:09am [facility] Medical Records Department [address] [place] [address] Progress Note - Surgery 11/17/23 0833 MR#: [id number] Acct: [id number] Name: RIAZ DIOP Rep #:[id number] : 1985 38 From: Joann SORIANO PA-C PCP: Dr. Drew Mayen MD Status:A DM [id number] Subjective Subjective Patient evaluated resting comfortably in [...] 85.6 H, Lymph % (Auto) 9.2 L, [place] % (Auto) 4.5, Eos % (Auto) 0.1, [...] Clarity Clear, Urine pH 6.5, Ur Specific [place] 1.010, Urine Protein Negative, Urine Glucose (UA) [...] (Auto) 76.6 H, Lymph % (Auto) 15.2 L,[place] % (Auto) 7.1, Eos % (Auto) 0.5, [...] discharge today Charges/Coding Visit Charges Inpatient E&M: 94721 Subs Hosp L1 (no charge; post-op) 11/17/23 0923 <Electronically signed by Joann SORIANO PA-C> Cosigner Signature (if applicable): CC: ~ Signed [facility] Work Phone: 1([phone]) 224-692312-19-2023 Procedure [facility] 11-16-2023 Discharge summary Author Antonio Ferguson [facility] November 16, 2023 4:15pm Note Date/Time November 16, 2023 9:42am [facility] Medical Records Department [address] [place] [address] Emergency Department Summary 11/16/23 MR#: [id number] Acct: [id number] Name: RIAZ DIOP Rep #:[id number] : 1985 38 From: Antonio Sanchez PCP: Dr. Drew Mayen MD Status:A DM DEISY Location: [place] [address] HPI HPI - GI History of Present [...] Patient denies any dysuria, frequency, or hematuria. PFSH [facility] Medical History Asthma Congenital absence [...] 85.6 H Lymph % (Auto) 9.2 L [place] % (Auto) 4.5 Eos % (Auto) 0.1 [...] Clarity Clear Urine pH 6.5 Ur Specific [place] 1.010 Urine Protein Negative Urine Glucose (UA) [...] sinus rhythm with a rate of 91. AK interval, QRS interval, and QTc intervals were all normal. Cum[place] was normal. There are no acute ST [...] Impression: Abdominal pain, Acute appendicitis Disposition Disposition: Acute Care [facility] What to do if you have Problems For any increased pain, shortness of breath, bleeding, nausea or vomiting, chestpain, or any unexpected problems, contact your Primary Care Provider. Call [facility] ([phone]) or report to the closest Emergency Room. Call 911 if necessary. 11/16/23 6655 <Electronically signed by Antonio Ferguson DO> Cosigner Signature (if applicable): CC: Dr. Drew Mayen MD ~ Signed [facility] Work Phone: 1(869) 272-536112-19-2023 History and physical note Author Trinidad Nicolas [facility] November 16, 2023 3:58pm Note Date/Time November 16, 2023 1:18pm [facility] Medical Records Department [address] [place] [address] History & Physical Exam 11/16/23 1316 MR#: [id number] Acct: [id number] Name: RIAZ DIOP Rep #:[id number] : 1985 38 From: Joann SORIANO PA-C PCP: Dr. Drew Mayen MD Status:A DM DEISY Location: [facility] LU741-2 HPI - General General Date of Admission: 11/16/23 Date of Service: 11/16/23 Chief Complaint: Abdominal pain HPI Narrative RIAZ DIOP, is a 38 M who presents with 1 day history of abdominal pain which started at 0300 AM. He noted the pain started in his epigastric region. Hethought this was gas and waited until 0600 AM when [employer] opened and purchased some gas-x. He noted [...] and laparoscopic cholecystectomy earlier this year at [facility] and more recently an excision of a [...] WBC 13.3 with left shift. [facility] Medical History Asthma Congenital absence [...] 85.6 H, Lymph % (Auto) 9.2 L, [place] % (Auto) 4.5, Eos % (Auto) 0.1, [...] Clarity Clear, Urine pH 6.5, Ur Specific [place] 1.010, Urine Protein Negative, Urine Glucose (UA) [...] patient's care. Charges/Coding Visit Charges OBSV E&M: 62531 Observ/hosp same date L2 11/16/23 1348 <Electronically signed by Joann SORIANO PA-C> Cosigner Signature (if applicable): CC: XIOMY Cheng; Dr. Drew Mayen MD; Dr. Trinidad Nicolas MD~ Signed ADDENDUM by Dr. Trinidad Nicolas MD on 11/16/23 at 1558 Addendum Patient seen and examined alongside Mrs. Cheng. All agree with her documentation provided in the history and physical above. In short patient is [id number] male presenting with signs and symptoms of [...] MD; Dr. Trinidad Nicolas MD ~* Signed [facility] Work Phone: 1(666) 161-559407-03-2023 Progress note Author Miriam Johnson [facility] May 31, 2023 6:12pm Note Date/Time May 31, 2023 6:12p m [facility] Medical Records Department [address] [place] [address] Progress Note - Hospitalist 05/31/23 1802 MR#: [id number] Acct: [id number] Name: RIAZ DIOP Rep #:[id number] : 1985 37 From: Miriam Johnson DO PCP: Dr. Drew Mayen MD Status:A DM IN Location: [place] [address] Reason for Visit Reason for Visit: Right [...] Intake and Output for Last 24 Hours 05/29/23 05/30/23 05/31/23 23:59 23:59 23:59 Intake Total 6150.00 / [...] (Auto) 81.6 H, Lymph % (Auto) 12.0 L,[place] % (Auto) 6.0, Eos % (Auto) 0.0, [...] Physician: Suzi Castaneda Performed By: Joseph Rangel RVConcha Physical Exam Const alert, oriented x3, no [...] -Full code Charges/Coding Visit Charges Inpatient E&M: 11140 Subs Hosp L2 05/31/23 1812 <Electronically signed by Miriam Johnson DO> Cosigner Signature (if applicable): CC: ~ Signed [facility] Work Phone: 1(331) 643-941007-03-2023 Consult note Author Sabina Flowers [facility] May 31, 2023 5:17am Note Date/Time May 31, 2023 5:17a m [facility] Medical Records Department [address] [place] [address] Pharmacokinetic/Renal -Consult 05/31/23 0517 MR#: [id number] Acct: [id number] Name: RIAZ DIOP Rep #:[id number] : 1985 37 From: Sabina Flowers PCP: Dr. Drew Mayen MD Status:A DM IN Y Location: [facility] [id number] Consult Antibiotic Management Pharmacy has been [...] Signature (if applicable): Date CC: ~ Signed [facility] Work Phone: 1(883) 643-644707-02-2023 Progress note Author Gatito [facility] May 30, 2023 6:49pm Note Date/Time May 30, 2023 6:49p m [facility] Medical Records Department [address] [place] [address] Progress Note - Hospitalist 05/30/23 1845 MR#: [id number] Acct: [id number] Name: RIAZ DIOP Rep #:[id number] : 1985 37 From: Gatito Chase DO PCP: Dr. Drew Mayen MD Status:A DM IN Location: [place] [address] Reason for Visit Reason for Visit: Diagnoses [...] 92.0 H, Lymph % (Auto) 2.5 L, [place] % (Auto) 4.6, Eos % (Auto) 0.0, [...] % (Auto) Cancelled, Lymph % (Auto) Cancelled, [place] % (Auto) Cancelled, Eos % (Auto) Cancelled, [...] Tear DropCells Cancelled, Ovalocytes Cancelled, Stomatocytes Cancelled, [place] Bodies Cancelled, [place] Cells Cancelled, Bite Cells Cancelled, Crenated Cell [...] 91.1 H, Lymph % (Auto) 4.4 L, [place] % (Auto) 3.6, Eos % (Auto) 0.0, [...] collaborating with patient's care team: 35 minutes 05/30/23 6097 <Electronically signed by Gatito Chase DO> Cosigner Signature (if applicable): CC: ~ Signed [facility] Work Phone: 1(550) 595-665007-02-2023 Discharge summary Author Antonio Ferguson [facility] May 30, 2023 8:51am Note Date/Time May 29, 2023 11:15 pm [facility] Medical Records Department [address] [place] [address] Emergency Department Summary 05/29/23 MR#: [id number] Acct: [id number] Name: RIAZ DIOP Rep #:[id number] : 1985 37 From: Antonio Sanchez PCP: Dr. Drew Mayen MD Status:A DM IN Location: [address] History of Present Illness Chief Complaint: [...] leg. Patient denies any paresthesias or weakness. [facility] Medical History (Updated 05/30/23 @ [...] Cancelled Lymph % (Auto) 2.5 L Cancelled [place] % (Auto) 4.6 Cancelled Eos % (Auto) [...] Drop Cells Cancelled Ovalocytes Cancelled Stomatocytes Cancelled [place] Bodies Cancelled [place] Cells Cancelled Bite Cells Cancelled Crenated Cell [...] Cellulitis of leg, right, Leukocytosis Disposition Disposition: Acute Care Hospital [facility] What to do if you have Problems For any increased pain, shortness of breath, bleeding, nausea or vomiting, chestpain, or any unexpected problems, contact your Primary Care Provider. Call [facility] ([phone]) or report to the closest Emergency Room. Call 911 if necessary. 05/30/23 0851 <Electronically signed by Antonio Ferguson DO> Cosigner Signature (if applicable): CC: Dr. Drew Mayen MD ~ Signed [facility] Work Phone: 1(102) 325-227907-02-2023 Consult note Author Sabina Flowers [facility] May 30, 2023 5:28am Note Date/Time May 30, 2023 5:28a [facility] Medical Records Department [address] [place] [address] Pharmacokinetic/Renal -Consult 05/30/23 0527 MR#: [id number] Acct: [id number] Name: RIAZ DIOP Rep #:[id number] : 1985 37 From: Sabina Flowers PCP: Dr. Drew Mayen MD Status:A DM IN Y Location: [place] [address] Consult Antibiotic Management Pharmacy has been consulted [...] Signature (if applicable): Date CC: ~ Signed [facility] Work Phone: 1(527) 148-816107-02-2023 History and physical note Author Suzi aCstaneda [facility] May 30, 2023 4:40am Note Date/Time May 30, 2023 2:58a [facility] Medical Records Department [address] [place] [address] H&P Exam - Hospitalist 05/30/23 0255 MR#: [id number] Acct: [id number] Name: RIAZ DIOP Rep #:[id number] : 1985 37 From: Suzi Castaneda MD PCP: Dr. Drew Mayen MD Status:A DM IN Location: [place] [address] HPI - General General Date of Admission: 05/30/23 Date of Service: 05/30/23 Chief Complaint: RLE pain, redness, fever. 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 [facility] Medical History Asthma Congenital absence [...] 92.0 H, Lymph % (Auto) 2.5 L, [place] % (Auto) 4.6, Eos % (Auto) 0.0, [...] % (Auto) Cancelled, Lymph % (Auto) Cancelled, [place] % (Auto) Cancelled, Eos % (Auto) Cancelled, [...] Drop Cells Cancelled, Ovalocytes Cancelled, Stomatocytes Cancelled, [place] Bodies Cancelled, [place] Cells Cancelled, Bite Cells Cancelled, Crenated Cell [...] rhinitis, DORENE, HTN who presents to the [facility] ED on 05/30/2023 with history of onset [...] 60 minutes. Charges/Coding Visit Charges Inpatient E&M: 81335 Init Hosp L2 05/30/23 0440 <Electronically signed by Suzi Castaneda MD> Cosigner Signature (if applicable): CC: Dr. Suzi Castaneda MD; Dr. Drew Mayen MD~ Signed [facility] Work Phone: 1(539) 662-296012-27-2022 Hospital Discharge instructions Additional Instructions Contact your family physician if your right leg has increased redness or swelling You will need follow-up concerning your iron deficiency anemia Date [facility] Discharge: [facility]22[facility] Work Phone: 1(383) 167-749606-01-2022 History of Present illness Narrative* Shirley Lara [...] concerns A total of 10 minutes of mjhp-iy-jmqx time were spent with the patient, of which >50% were spenton counseling and coordination of care. [facility] History of Present illness Narrative* Shirley [...] up in 4-6 weeks [facility] History of Present illness Narrative* Shirlye Lara LPN - 02/04/2022 11:45 AM EST Plastic Surgery Post-op Riaz Diop ([id number]) 36 y.o. male presenting for a post-op visit. Vitals: Smoking Status Never Smoker Estimated body mass index is 36.71 kg/m as calculated from the following: Height as of 01/23/22: 1.93 m (6' 4). Weight as of 01/23/22: 136.8 kg (301 [...] and walking boot [facility]03-24-2021 Note DATE OF SERVICE: 02/19/2021 INDICATION: Choledocholithiasis. [...] up clinically. [facility] [place] MEDICAL REC #: [id number] [place] [address] ADMIT DATE: DISCHARGE DATE: GASTROENTEROLOGY REPORT ATTENDING JANETT: Jacinto Macias MD cholecystectomy discussed with the patient and the . Jacinto Macias MD /[id number] SSI File#: [id number] END OF DOCUMENT / CHANGE LOG FOLLOWS Last Edited By Elec. Signed By Jacinto Macias MD #FAHNA Jacinto Macias MD #FAHNA on 06/29/2021 11:37 ET on 06/29/2021 11:37 ET Revision Number - 2 Verified/Reviewed by 06/29/21 1137 [facility] MED[facility] REC #: [id number] [place] [address] ADMIT DATE: DISCHARGE DATE: GASTROENTEROLOGY REPORT ATTENDING PHY: Jacinto [facility]ias [facility] Author Miriam Johnson [facility] June 01, 2023 12:31pm Note Date/Time June 01, 2023 12:21 pm [facility] Medical Records Department [address] [place] [address] [place] [address] Discharge Summary 06/01/23 1219 MR#: [id number] Acct: [id number] Name: RIAZ DIOP Rep #:[id number] : 1985 37 From: Miriam Johnson DO PCP: Dr. Drew Mayen MD Status:A DM IN Location: [place] [address] Providers Date of Admission: 05/30/23 Date of [...] % (Auto) 66.4, Lymph % (Auto) 23.8, [place] % (Auto) 7.3, Eos % (Auto) 1.6, [...] Primary Care Provider: Drew Mayen Consulting Providers: Suiz Castaneda; Gatito Chase Instructions Additional Instructions / [...] Self Care Charges/Coding Visit Charges Inpatient E&M: 76965 Disch Hosp >30min 06/01/23 1231 <Electronically signed by Miriam Johnson DO> Cosigner Signature (if applicable): CC: Dr. Drew Mayen MD; Dr. Miriam Johnson DO~ Signed [facility] Work Phone: Discharge summary Author Joann Cheng [facility] November 17, 2023 9:34am Note Date/Time November 17, 2023 9:32am [facility] Medical Records Department [address] [place] [address] Instructions for Home/Discharge Instructions 11/17/23 0929 MR#: [id number] Acct: [id number] Name: RIAZ DIOP Rep #:[id number] : 1985 38 From: Joann SORIANO PASukhiC [...] appointment for a 2 week follow-up at [phone] Test Results: Test results from this visit [...] similar medications, I would recommend transitioning tothese ddbj-[id number]-[id number] medicines as soon as possible instead of continued use ofnarcotic pain medication. Follow up ? You should call [facility] soon after surgery, at [phone] option 1 to make a follow up [...] can be placed): Home, Self Care 11/17/23 0934<Electronically signed by Joann SORIANO PA-C>Joann SORIANO PA-C CC: Dr. Derw Mayen MD ~ Signed [facility] Work Phone: Evaluation note* Diagnosis Malignant melanoma, unspecified site- [facility] S/P split thickness skin graft- Primary Encounter for follow-up Malignant melanoma of right lower extremity including hip Malignant melanoma of skin of lower limb, including hip [facility] Diagnosis Malignant melanoma of right lower extremity including hip- Primary Malignant melanoma of skin of lower limb, including hip [facility] Diagnosis Onset Date Resolution Status Anemia acute Cellulitis of leg, right acu te [facility] Work Phone: Evaluation note* Diagnosis Onset Date Resolution Status Discoloration of skin acute Hypertension chronic Venous insufficiency of both lower extremities chronic Anemia acute Hypertension chronic Venous insufficiency of both lower extremities chronic [facility] Work Phone: Evaluation note* Diagnosis Onset Date Resolution Status Discoloration of skin acute Hypertension chronic Venous insufficiency of both lower extremities chronic Anemia acute Hypertension chronic Venous insufficiency of both lower extremities chronic Cellulitis acute Cellulitis of leg, right acu te Leukocytosis acute Sepsis acute [facility] Work Phone: Evaluation note* Diagnosis Onset Date Resolution Status Anemia acute Hypertension chronic Venous insufficiency of both lower extremities chronic Cellulitis of leg, right acu te Leukocytosis resolved Sepsis resolved Cellulitis of leg, right acu te Hypertension chronic Venous insufficiency of both lower extremities chronic Hypertension chronic Venous insufficiency of both lower extremities chronic Discoloration of skin acute Lower extremity edema acute [facility] Work Phone: Evaluation note* Diagnosis Onset Date Resolution Status Hypertension chronic Venous insufficiency of both lower extremities chronic Discoloration of skin acute Lower extremity edema acute Diarrhea acute DORENE (obstructive sleep apnea) acute Anemia chronic Hypertension chronic [facility] Work Phone: Evaluation note* Diagnosis Onset Date Resolution Status Diarrhea acute DORENE (obstructive sleep apnea) acute Anemia chronic Hypertension chronic Abdominal pain acute Acute appendicitis acute [facility] Work Phone: Evaluation note* Diagnosis Onset Date Resolution Status Diarrhea acute DORENE (obstructive sleep apnea) acute Anemia chronic Hypertension chronic Abdominal pain resolved Acute appendicitis resolved Status post laparoscopic appendectomy acute Umbilical hernia without obs truction and without gangrene chronic [facility] Work Phone: Evaluation note* Diagnosis Onset Date Resolution Status Diarrhea acute Anemia chronic Hypertension chronic DORENE (obstructive sleep apnea) chronic Abdominal pain resolved Acute appendicitis resolved Status post laparoscopic appendectomy acute Umbilical hernia without obs truction and without gangrene chronic Hypertension chronic DORENE (obstructive sleep apnea) chronic Umbilical hernia without obs truction and without gangrene chronic Venous insufficiency of both lower extremities chronic [facility] Work Phone: evaluation note* Diagnosis Onset Date Resolution Status Abdominal [...] repair, follow-up exam acute Abdominal pain resolved [facility] Work Phone: Evaluation note* Diagnosis Acute otitis media, right- Primary Unspecified otitis media [facility] Author Joann Cheng [facility] November 16, 2023 1:48pm Note Date/Time November 16, 2023 1:18pm [facility] Medical Records Department [address] [place] [address] History & Physical Exam 11/16/23 1316 MR#: [id number] Acct: [id number] Name: RIAZ DIOP Rep #:[id number] : 1985 38 From: Joann SORIANO PA-C PCP: Dr. Drew Mayen MD Status:A DM DEISY Location: [facility]3 [id number] HPI - General General Date of Admission: 11/16/23 Date of Service: 11/16/23 Chief Complaint: Abdominal pain HPI Narrative RIAZ DIOP, is a 38 M who presents with 1 day history of abdominal pain which started at 0300 AM. He noted the pain started in his epigastric region. Hethought this was gas and waited until 0600 AM when [employer] opened and purchased some gas-x. He noted [...] and laparoscopic cholecystectomy earlier this year at [facility] and more recently an excision of a [...] WBC 13.3 with left shift. [facility] Medical History Asthma Congenital absence [...] 85.6 H, Lymph % (Auto) 9.2 L, [place] % (Auto) 4.5, Eos % (Auto) 0.1, [...] Clarity Clear, Urine pH 6.5, Ur Specific [place] 1.010, Urine Protein Negative, Urine Glucose (UA) [...] patient's care. Charges/Coding Visit Charges OBSV E&M: 79670 Observ/hosp same date L2 11/16/23 1348 <Electronically signed by Joann SORIANO PA-C> Cosigner Signature (if applicable): CC: XIOMY Cheng; Dr. Drew Mayen MD~ Signed [facility] Work Phone: Reason for referral (narrative)No reason for referral information availableMayers [facility] Work Phone: Summary Purpose Family History No Family History Records Found Relationship Condition Age at Onset Recorded Date/T bladimir mother Asthma Unknown Malignant neoplasm Unknown Advance Directives No Advanced Directives Records Found Advance Directive Response Recorded Date/ Time Living Will No November 23 022 9:01pm Power of Supervisor [employer] No November 23, 2022 9:01pm Advance Directive Response Recorded Date/ Time Living Will No November 23 022 10:56pm Power of Supervisor [employer] No November 23, 2022 10:56pm Advance Directive Response Recorded Date/ Time Living Will No May 29, 2023 1 1:15pm Power of Supervisor [employer] No May 29, 2023 11:15pm Advance Directive Response Recorded Date/ Time Living Will No May 30, 2023 4 :35am Power of Supervisor [employer] No May 30, 2023 4:35am Advance Directive Response Recorded Date/ Time Living Will No May 30, 2023 3 :35am Power of Supervisor [employer] No May 30, 2023 3:35am Advance Directive Response Recorded Date/ Time Living Will No November 16, 2 023 12:05pm Power of Supervisor [employer] No November 16, 2023 12:05pm Advance Directive Response Recorded Date/ Time Living Will No November 16 2 023 1:57pm Power of Supervisor [employer] No November 16, 2023 1:57pm Advance Directive Response Recorded Date/ Time Living Will No December 30 1:23pm Power of Supervisor [employer] No December 30, 2023 1:23pm Advance Directive Response Recorded Date/ Time Living Will No December 30 2:23pm Power of Supervisor [employer] No December 30, 2023 2:23pm Advance Directive Response Recorded Date/ Time Living Will No January 31, 2025 5:00pm Do you have a [facility] Power of Supervisor [employer]? No January 31, 2025 5:00pm Chief Complaint [...] FU SEPSIS, CELLULITIS SEPSIS, CELLULITIS SEPSIS, CELLULITIS [facility] FOLLOW UP - CELLULITIS 1 M FU [...] ACUTE APPENDICITIS APPY 11/16, DISCUSS HERNIA SURGERY Reason for Visit Diarrhea [...] 2:50 pm acute -possible cellulitis February 07, 025 1:25pm 3 M FU May 09, [...] section and content) DATE CREATED AUTHOR 02/17/2021 [facility] ([place]) DATE CREATED AUTHOR AUTHOR'S ORGANIZ ATION 06/29/2021 [facility] [place] DATE CREATED AUTHOR AUTHOR'S ORGANIZ ATION 05/02/2022 [facility] DATE CREATED AUTHOR AUTHOR'S ORGANIZ ATION 05/20/2024 [facility] DATE CREATED AUTHOR AUTHOR'S ORGANIZ ATION 10/11/2025 [facility] Reason for Visit (unrecogniz ed section and content) Reason Comments Wound Check Reason Comments Post Op Visit Reason Comments Ear Problem Bilat ear problem, s tates they are feeling clogged, loss of hearing, scratching ears couple months increasing x couple days into discomfort Care Teams (unrecognized sec tion and content) Sterile Proc Tech Relationship Specialty Start Date End Date Drew Mayen MD [address] [place] [phone] PCP - General Internal Medicine 11/26/21 Riaz Jackson MB/HAYDER [address] [place] [address] Referring Provider Hematology 11/26/21 Wendy Das, class b driver 12/30/21 Trinidad Weems MD [address] [place] [phone] Surgeon Plastic Surgery 01/02/22 Sterile Proc Tech Relationship Specialty Start Date End Date Drew Mayen MD [address] [place] [phone] PCP - General Internal Medicine 11/26/21 Riaz Jackson MB/HAYDER [address] [place] [address] Referring Provider Hematology 11/26/21 Wendy Das RN Case Manager 12/30/21 Trinidad Weems MD [address] [place] [phone] Surgeon Plastic Surgery 01/02/22 Sterile Proc Tech Relationship Specialty Start Date End Date Drew Mayen MD [address] [place] [phone] PCP - General Internal Medicine 11/26/21 Riaz Jackson MB/HAYDER [address] [place] [address] Referring Provider Hematology 11/26/21 Trinidad Weems MD [address] [place] [address] Surgeon Plastic Surgery 01/02/22 Team Status: Active Member Role Status Dates Dr. Drew Mayen MD Family Provider Active Dr. Drew Mayen MD Primary Care Provider Active Team Status: Inactive Member Role Status Dates Dr. Drew Mayen MD Primary Care P karolina, Attending Provider, Referring Provider Active Team Status: [...] MD Primary Care Provider Active Dr. Flynn Norht MD Attending Provider Active Team Status: Active [...] Provider, A ttending Provider, Other Provider Active BO Armas-Nichelle Active Team Status: Inactive Member Role Status [...] Joe Attending Provider, Referring Prov ider Active Sterile Proc Tech Relationship Specialty Start Date End Date Drew Mayen MD [address] [facility] [address] [place] [phone] PCP - General Internal Medicine 05/19/24 Team [...] or prosecute any alcohol or drug abuse patient.[facility] FOR RECORDS PERTAINING TO PATIENTS WHO ARE [...] BE BASED ON THE PRIMARY CLINICAL RECORDS. [facility]. provides no warranty or guarantee of the accuracy or completeness of information in this document.
[2025-10-17 13:51] LABS: AST(SGOT) 29 U/L (<=37); Alanine Aminotransfer ALT/SGPT 44 U/L (<=46); Albumin, Serum 4.4 g/dL (3.5-5.0); Alkaline Phosphatase 71 U/L (40-129); Anion Gap 11 (5-15); BUN 15 mg/dL (4-19); BUN/Creat Ratio 14.4 RATIO (10-20); Calcium,Total 9.5 mg/dL (7.6-11.0); Carbon Dioxide 22.7 mmol/L (21.0-32.0); Chloride 103 mmol/L (98-108); Cholesterol 191 mg/dL (<=200); Globulin 3.7 g/dL (2.2-4.2); Glucose 93 mg/dL (70-99); Low Density Lipoprotein Calc. 143 mg/dL; Potassium 4.6 mmol/L (3.3-5.1); Triglycerides 120 mg/dL; Very Low Density Lipoprotein 24 mg/dL (5-40); cholesterol:hdl ratio screen 7.29
== END | disposition home or self-care (01) ==
LOC: LAB 11:48
PROVIDERS: PCP Internal Medicine; Referring Provider Internal Medicine; Visit Provider Internal Medicine
DX: L03.90 Cellulitis, unspecified (principal); R21 Rash and other nonspecific skin eruption; I10 Essential (primary) hypertension; E66.9 Obesity, unspecified
CPT/HCPCS: 36415; 80053; 80061; 83036; 85025